=== PATIENT | female | born 1950 | race Caucasian/White ===

== ENCOUNTER 2018-11-10 13:43 | Inpatient (IN) | payer OTHER ==
[2018-11-10] MEDS ORDERED: NA CHLORIDE 0.9% 500 ML ONE (14:20)
[2018-11-10] MEDS ORDERED: LEVALBUTEROL 1.25 MG/3 ML NEB ONE ×2 (14:20→19:50)
[2018-11-10] MEDS ORDERED: IBUPROFEN 400 MG TAB ONE (14:20)
[2018-11-10 14:54] LABS: Basophils % 0.9 % (0-1.3); Eosinophils % 0.2 % (0-4.4); Hematocrit 43.3 % (36.0-45.0); Lymphocytes % 11.1 % (15.3-44.8); MPV 8.5 fL (7.6-11.3); Monocytes % 10.7 % (3.3-12.3); RBC Red Blood Cell Count 4.77 M/uL (3.86-4.86)
[2018-11-10 15:05] LABS: Potassium 3.6 mmol/L (3.5-5.1)
[2018-11-10] MEDS ORDERED: METHYLPREDNISOLONE 125 MG INJ ONE (15:08)
--- NOTE | 2018-11-10 15:46 | RAD REPORT ---
EXAM DESCRIPTION: RAD - Chest Single View - 11/10/2018 3:11 pm CLINICAL HISTORY: Dyspnea, cough and congestion COMPARISON: April 2015 TECHNIQUE: AP portable chest image was obtained 1503 hours . FINDINGS: Prominent interstitial thickening seen in each lower lung field. Fullness of the right hil um is noted compared to prior imaging. Heart size is upper normal, slightly increased over comparison . Upper lobe vasculature within normal limits. No pneumothorax or large pleural effusion. No acute ramiro ny abnormality seen. No acute aortic findings suspected. IMPRESSION: Bibasilar interstitial thickening is present substantially different from 2015. This cou ld be progressive fibrosis over 4 years or represent an acute interstitial edema or infiltrate proces s. Fullness of the right hilum and right side mediastinum has developed since prior imaging. Follow-up C T chest imaging would be suggested to exclude possibility of a mediastinal mass or lymphadenopathy.
[2018-11-10] MEDS ORDERED: AZITHROMYCIN 500 MG/250 ML BAG ONE (16:20)
[2018-11-10] MEDS ORDERED: CEFTRIAXONE/SWI 1gm 1 GM/10 ML SYR ONE (16:20)
--- NOTE | 2018-11-10 16:56 | EKG ---
Test Date: 2018-11-10 Test Time: 14:26:43 Binding Cutter Synthetic Cloth: LELAND MEASUREMENT RESULTS: Intervals: Rate: 116 CO: 154 QRSD: 120 QT: 338 QTc: 469 [place]: P: 84 CO: 154 QRS: 102 T: -8 INTERPRETIVE STATEMENTS: Sinus tachycardia with frequent premature ventricular and atrial complexes Rightward axis Right bundle branch block ST & T wave abnormality, consider inferior ischemia Abnormal ECG Compared to ECG 05/04/2015 13:44:14 Atrial and Ventricular premature complex(es) now present Sinus rhythm no longer present Electronically Signed On 11-10-18 16:56:10 NEONATAL ICU COORDINATOR by Niranjan Fajardo
--- NOTE | 2018-11-10 17:10 | ER ---
Nurse's Notes [facility] Name: Cindi Mccallum Age: 68 yrs Sex: Female : 1950 Arrival Date: 11/10/2018 Time: 13:45 Bed 5 Private MD: Kajal Mahan Diagnosis: Pneumonia;Hypoxemia;Dyspnea, unspecified Presentation: 11/10 13:50 Presenting complaint: Productive cough with yellow sputum, pain with cough, headache, hb SOB, dark urine, and fever x 6 days. TMAX 102. Transition of care: patient was not received from another setting of care. Onset of symptoms was November 06, 2018. Risk Assessment: Do you want to hurt yourself or someone else? Patient reports no desire to harm self or others. Care prior to arrival: None. 13:50 Method Of Arrival: Ambulatory hb 13:50 Acuity: PRATIK 2 hb 14:00 Initial Sepsis Screen: Does the patient meet any 2 criteria? RR > 20 per min. HR > 90 aa5 bpm. Yes Does the patient have a suspected source of infection? Yes: Productive cough/pneumonia. Historical: - Allergies: 13:52 clopidogrel bisulfate; hb - Home Meds: 14:00 Metoprolol Tartrate Oral [Active]; Aspirin Oral [Active]; aa5 - PMHx: 14:00 Hypertension; aa5 - PSHx: 14:00 Heart stents; Appendectomy; Hysterectomy; aa5 - Immunization history:: Adult Immunizations up to date. - Social history:: Smoking status: Patient uses tobacco products, smokes one pack cigarettes per day. - Ebola Screening: : No symptoms or risks identified at this time. - Family history:: not pertinent. - Hospitalizations: : No recent hospitalization is reported. Screenin:00 Abuse screen: Denies threats or abuse. Nutritional screening: No deficits noted. aa5 Tuberculosis screening: No symptoms or risk factors identified. Fall Risk None identified. Assessment: 14:00 General: Appears uncomfortable, Behavior is cooperative. Pain: Complains of pain in aa5 throat and head Pain currently is 7 out of 10 on a pain scale. Quality of pain is described as aching, and sore Pain began 6 days ago Is continuous. Neuro: Level of Consciousness is awake, alert, obeys commands, Oriented to person, place, time, situation. Cardiovascular: Heart tones S1 S2 present Rhythm is sinus tachycardia with PVCs. Respiratory: Reports shortness of breath cough that is productive, Airway is patent Respiratory effort is labored, Respiratory pattern is tachypnea Breath sounds with wheezes bilaterally. GI: No signs and/or symptoms were reported involving the gastrointestinal system. : Reports dark cloudy urine. EENT: Throat is reddened. Derm: Skin is pink, warm \T\ dry. Musculoskeletal: Range of motion: intact in all extremities. 15:00 Neuro: Level of Consciousness is awake, alert, obeys commands, Oriented to person, aa5 place, time, situation. Respiratory: Airway is patent Respiratory effort is even, unlabored, Respiratory pattern is tachypnea. Derm: Skin is pink, warm \T\ dry. 15:00 Reassessment: Patient and/or family updated on plan of care and expected duration. Pain aa5 level reassessed. Pt sitting up in bed, pt's at bedside. Bed in low position, side rails x 2, call marie within reach. . 16:00 Reassessment: Patient and/or family updated on plan of care and expected duration. Pain aa5 level reassessed. Patient states feeling better. Pt sitting up in bed watching TV. Bed remains in low positions, side rails x 2, call marie within reach. . Neuro: Level of Consciousness is awake, alert, obeys commands, Oriented to person, place, time, situation. Respiratory: Airway is patent Respiratory effort is even, unlabored, Respiratory pattern is tachypnea. Derm: Skin is pink, warm \T\ dry. 17:00 Reassessment: Patient and/or family updated on plan of care and expected duration. Pain aa5 level reassessed. Patient is alert, oriented x 3, equal unlabored respirations, skin warm/dry/pink. 18:00 Reassessment: Patient and/or family updated on plan of care and expected duration. Pain aa5 level reassessed. Patient is alert, oriented x 3, equal unlabored respirations, skin warm/dry/pink. Pt given food tray. 18:50 Reassessment: Pt assisted to bedside commode. aa5 19:00 Reassessment: Urine culture sent to lab . aa5 20:05 Reassessment: Report called to Leti on fourth floor. ea Vital Signs: 13:51 BP 168 / 100; Pulse 127; Resp 28; Temp 100.1(O); Pulse Ox 90% on R/A; Pain 7/10; hb 14:00 Pulse 130; Resp 32 S; Pulse Ox 87% on R/A; aa5 14:16 Pulse 125; Resp 30 S; Pulse Ox 97% on Nebulizer Mask; aa5 15:00 BP 150 / 73; Pulse 115; Resp 30 S; Temp 98.5(O); Pulse Ox 95% on 2 lpm NC; aa5 15:45 BP 158 / 72; Pulse 107; Resp 22 S; Pulse Ox 93% on 2 lpm NC; aa5 16:20 BP 165 / 75; Pulse 106; Resp 24 S; Temp 98.6(O); Pulse Ox 92% on 2 lpm NC; aa5 17:15 BP 148 / 76; Pulse 97; Resp 22 S; Pulse Ox 91% on 2 lpm NC; aa5 18:15 BP 152 / 94; Pulse 93; Resp 20 S; Pulse Ox 91% on 2 lpm NC; aa5 19:49 BP 159 / 75; Pulse 103; Resp 22; Pulse Ox 94% on Nebulizer Mask; tl2 ED Course: 13:45 Patient arrived in ED. sb2 13:46 Kajal Mahan MD is Private Physician. sb2 13:51 Triage completed. hb 13:51 Arm band placed on right wrist. hb 14:00 Christ Jacques MD is Attending Physician. rn 14:00 Patient has correct armband on for positive identification. Placed in gown. Bed in low aa5 position. Call light in reach. Side rails up X2. playground monitor on. Pulse ox on. NIBP on. 14:15 Initial lab(s) drawn, by me, sent to lab. First set of blood cultures drawn by me. aa5 14:25 Inserted saline lock: 20 gauge in right forearm, using aseptic technique. Blood aa5 collected. 14:40 Flu and/or RSV swab sent to lab. Strep swab sent to lab. Unsuccessful attempt to draw aa5 second set of blood cultures. information technology account manager will come draw. 14:43 EKG done, by delivery tech. reviewed by Christ Jacques MD. sm3 14:45 Marian Friedman, RN is Primary Nurse. aa5 15:13 XRAY CXR (1 view) In Process Unspecified. EDMS 17:09 Allegra Tyler MD is Hospitalizing Provider. rn 19:00 Report given to Tameka RN. aa5 20:10 Patient admitted, IV remains in place. ea 20:10 No provider procedures requiring assistance completed. ea Administered Medications: 14:15 Drug: Motrin 800 mg Route: PO; aa5 15:00 Follow up: Response: No adverse reaction; Temperature is decreased aa5 14:16 Drug: Xopenex (3) 1.25 mg Route: Inhalation; aa5 14:35 Follow up: Response: No adverse reaction; Wheezing diminished aa5 14:40 Drug: NS 0.9% 500 ml Route: IV; Rate: bolus; Site: right forearm; aa5 15:30 Follow up: IV Status: Completed infusion aa5 14:49 Drug: SOLU-Medrol 125 mg Route: IVP; Site: right forearm; aa5 14:55 Follow up: Response: No adverse reaction aa5 16:15 Drug: Rocephin - (cefTRIAXone) 1 grams {Note: administered slow IVP per pharmacy at aa this time. .} Route: IVPB; Infused Over: 30 mins; Site: right forearm; 20:10 Follow up: Response: No adverse reaction; IV Status: Completed infusion ea 16:17 Drug: Zithromax 500 mg Route: IVPB; Infused Over: 1 hrs; Site: right forearm; aa5 17:28 Follow up: Response: No adverse reaction; IV Status: Completed infusion iw Outcome: 17:09 Decision to Hospitalize by Provider. rn 19:15 Instructed on the need for admit. ea 20:06 Admitted to Med/surg accompanied by tech, room 404, with chart, Report called to Leti poole on fourth floor. 20:06 Condition: stable 20:19 Patient left the ED. ea Signatures: Dispatcher [employer] EDMS Juanita Sepulveda RN RN iw Nieto, Roman, MD MD rn Calderon, Audri RN RN aa5 Sindhu Rubio RN RN hb Knox, Taylor, RN RN tl2 Bonnie Stringer RN RN ea Billeau, Sheri 2 Shilpa Chen sm3 Corrections: (The following items were deleted from the chart) 15:17 14:10 Pulse 125bpm; Resp 30bpm; Spontaneous; Pulse Ox 97% Nebulizer Mask; aa5 aa5
--- NOTE | 2018-11-10 17:10 | EDPHYS ---
Physician Documentation [facility] Name: Cindi Mccallum Age: 68 yrs Sex: Female : 1950 Arrival Date: 11/10/2018 Time: 13:45 Bed 5 Private MD: Kajal Mahan ED Physician Christ Jacques HPI: 11/10 14:30 This 68 yrs old Female presents to ER via Ambulatory with complaints of rn Breathing Difficulty. 14:30 The patient has shortness of breath at rest, with light activity. rn 14:31 Onset: The symptoms/episode began/occurred 6 day(s) ago. Duration: The symptoms are rn intermittent. The patient's shortness of breath is aggravated by exertion, talking, walking. 14:42 Associated signs and symptoms: Pertinent positives: productive cough, fever, Pertinent rn negatives: hemoptysis, vomiting. Severity of symptoms: At their worst the symptoms were moderate in the emergency department the symptoms are unchanged. The patient has not experienced similar symptoms in the past. REports smoker, + fever/chills/cough/sob for a few days. + sick contact. Also reports dysuria. . Historical: - Allergies: 13:52 clopidogrel bisulfate; hb - Home Meds: 14:00 Metoprolol Tartrate Oral [Active]; Aspirin Oral [Active]; aa5 - PMHx: 14:00 Hypertension; aa5 - PSHx: 14:00 Heart stents; Appendectomy; Hysterectomy; aa5 - Immunization history:: Adult Immunizations up to date. - Social history:: Smoking status: Patient uses tobacco products, smokes one pack cigarettes per day. - Ebola Screening: : No symptoms or risks identified at this time. - Family history:: not pertinent. - Hospitalizations: : No recent hospitalization is reported. ROS: 14:42 Constitutional: + fever and chills Eyes: Negative for injury, pain, redness, and afternoon nanny, ENT: Negative for injury, pain, and discharge, Neck: Negative for injury, pain, and swelling, Cardiovascular: Negative for chest pain, palpitations, and edema, Respiratory: + sob and cough Abdomen/GI: Negative for abdominal pain, nausea, vomiting, diarrhea, and constipation, : + dysuria MS/Extremity: Negative for injury and deformity, Skin: Negative for injury, rash, and discoloration, Neuro: Negative for headache, numbness, tingling, and seizure. Exam: 14:42 Constitutional: This is a well developed, well nourished patient who is awake, alert, rn sitting on edge of bed tachypneic Head/Face: Normocephalic, atraumatic. Eyes: Pupils equal round and reactive to light, extra-ocular motions intact. Lids and lashes normal. Conjunctiva and sclera are non-icteric and not injected. Cornea within normal limits. Periorbital areas with no swelling, redness, or edema. ENT: no stridor, dry MM Cardiovascular: tachycardic, regular, no murmur Respiratory: + moderate tachypnea with wheezing LLL and diminished RLL Abdomen/GI: soft, non-tender MS/ Extremity: Pulses equal, no cyanosis. Neurovascular intact. Full, normal range of motion. Equal circumference. Neuro: Awake and alert, GCS 15, oriented to person, place, time, and situation. Cranial nerves II-XII grossly intact. Motor strength 5/5 in all extremities. Sensory grossly intact. Cerebellar exam normal. Normal gait. Vital Signs: 13:51 BP 168 / 100; Pulse 127; Resp 28; Temp 100.1(O); Pulse Ox 90% on R/A; Pain 7/10; hb 14:00 Pulse 130; Resp 32 S; Pulse Ox 87% on R/A; aa5 14:16 Pulse 125; Resp 30 S; Pulse Ox 97% on Nebulizer Mask; aa5 15:00 BP 150 / 73; Pulse 115; Resp 30 S; Temp 98.5(O); Pulse Ox 95% on 2 lpm NC; aa5 15:45 BP 158 / 72; Pulse 107; Resp 22 S; Pulse Ox 93% on 2 lpm NC; aa5 16:20 BP 165 / 75; Pulse 106; Resp 24 S; Temp 98.6(O); Pulse Ox 92% on 2 lpm NC; aa5 17:15 BP 148 / 76; Pulse 97; Resp 22 S; Pulse Ox 91% on 2 lpm NC; aa5 18:15 BP 152 / 94; Pulse 93; Resp 20 S; Pulse Ox 91% on 2 lpm NC; aa5 19:49 BP 159 / 75; Pulse 103; Resp 22; Pulse Ox 94% on Nebulizer Mask; tl2 MDM: 14:00 Patient medically screened. rn 16:57 Differential diagnosis: Anxiety Reaction Bronchitis Myocardial Infarction pneumonia, rn Pneumothorax pulmonary edema, reactive airway disease, Sepsis. Data reviewed: vital signs, nurses notes, lab test result(s), EKG, radiologic studies. Counseling: I had a detailed discussion with the patient and/or guardian regarding: the historical points, exam findings, and any diagnostic results supporting the discharge/admit diagnosis, lab results, radiology results, the need for further work-up and treatment in the hospital. 11/10 14:05 Order name: Blood Culture Adult (2) 11/10 14:05 Order name: BMP; Complete Time: 15:29 rn 11/10 14:05 Order name: CBC with Diff; Complete Time: 15:29 11/10 14:05 Order name: NT PRO-BNP; Complete Time: 15:29 11/10 14:05 Order name: Flu; Complete Time: 15:29 11/10 14:05 Order name: Strep; Complete Time: 15:29 11/10 14:05 Order name: XRAY CXR (1 view); Complete Time: 15:51 11/10 14:05 Order name: Procalcitonin; Complete Time: 15:51 11/10 15:14 Order name: Throat Culture [facility] 11/10 18:54 Order name: Urine Culture 11/10 19:01 Order name: Urine Dipstick--Ancillary (enter results) 11/10 20:17 Order name: Urine Dipstick-Ancillary [facility] 11/10 14:05 Order name: IV Start; Complete Time: 14:49 11/10 14:05 Order name: EKG; Complete Time: 14:06 11/10 14:05 Order name: Cardiac monitoring; Complete Time: 14:50 11/10 14:05 Order name: EKG - Nurse/Tech; Complete Time: 14:50 11/10 14:05 Order name: Labs collected and sent; Complete Time: 14:50 11/10 14:05 Order name: O2 Per Protocol; Complete Time: 14:50 rn 11/10 14:05 Order name: O2 Sat Monitoring; Complete Time: 14:50 11/10 17:28 Order name: Diet Heart Healthy; Complete Time: 17:28 iw Administered Medications: 14:15 Drug: Motrin 800 mg Route: PO; aa5 15:00 Follow up: Response: No adverse reaction; Temperature is decreased aa5 14:16 Drug: Xopenex (3) 1.25 mg Route: Inhalation; aa5 14:35 Follow up: Response: No adverse reaction; Wheezing diminished aa5 14:40 Drug: NS 0.9% 500 ml Route: IV; Rate: bolus; Site: right forearm; aa5 15:30 Follow up: IV Status: Completed infusion 5 14:49 Drug: SOLU-Medrol 125 mg Route: IVP; Site: right forearm; aa5 14:55 Follow up: Response: No adverse reaction aa5 16:15 Drug: Rocephin - (cefTRIAXone) 1 grams {Note: administered slow [facility] .} Route: IVPB; Infused Over: 30 mins; Site: right forearm; 20:10 Follow up: Response: No adverse reaction; IV Status: Completed infusion 16:17 Drug: Zithromax 500 mg Route: IVPB; Infused Over: 1 hrs; Site: right forearm; aa 17:28 Follow up: Response: No adverse reaction; IV Status: Completed infusion iw Disposition: 11/10/18 17:09 Hospitalization ordered by Allegra Tylre for Inpatient Admission. Preliminary diagnosis are Pneumonia, Hypoxemia, Dyspnea, unspecified. - Bed requested for Telemetry/MedSurg (Inpatient). - Status is Inpatient Admission. ea - Condition is Stable. - Problem is new. - Symptoms have improved. UTI on Admission? Yes Signatures: Dispatcher [employer] EDMS Christ Jacques MD MD rn Calderon, Audri RN RN aa5 Sindhu Rubio RN RN hb Antunez, Elena, RN RN Brittney Reno Irene RN Corrections: (The following items were deleted from the chart) 17:50 17:09 Hospitalization Ordered by Allegra Tyler MD for Inpatient Admission. Preliminary eb diagnosis is Pneumonia; Hypoxemia; Dyspnea, unspecified. Bed requested for Telemetry/MedSurg (Inpatient). Status is Inpatient Admission. Condition is Stable. Problem is new. Symptoms have improved. UTI on Admission? No. rn 18:54 17:50 11/10/2018 17:09 Hospitalization Ordered by Allegra Tyler MD for Inpatient aprn. Preliminary diagnosis is Pneumonia; Hypoxemia; Dyspnea, unspecified. Bed requested for Telemetry/MedSurg (Inpatient). Status is Inpatient Admission. Condition is Stable. Problem is new. Symptoms have improved. UTI on Admission? No. eb 20:19 18:54 11/10/2018 17:09 Hospitalization Ordered by Allegra Tyler MD for Inpatient ea Admission. Preliminary diagnosis is Pneumonia; Hypoxemia; Dyspnea, unspecified. Bed requested for Telemetry/MedSurg (Inpatient). Status is Inpatient Admission. Condition is Stable. Problem is new. Symptoms have improved. UTI on Admission? Yes. rn
--- NOTE | 2018-11-10 18:53 | P.HP ---
Certification for Inpatient Patient admitted to: Inpatient Practitioner: I am a practitioner with admitting privileges, knowledge of patient current condition, hospital course, and medical plan of care. Services: Services provided to patient in accordance with Admission requirements found in Title 42 Section 412.3 of the Code of Federal Regulations Patient History Date of Service: 11/10/18 Reason for admission: Dyspnea History of Present Illness: This is a 68-year-old female, active smoker with prior coronary stent placement admitted for shortness of breath, fevers and productive cough. Per patient she has been having this productive cough and fevers/chills for the past few days that has been progressively worsening. This is what brought her to the ER. In the ER, her chest x-ray showed bilateral opacities, she was tachycardic, febrile and tachypneic. Her lab work was pertinent for white count of 9.1, pro calcitonin was negative. In the ER, she received Rocephin and Zithromax, steroids and Xopenex breathing treatments. She was admitted for further evaluation/treatment. At the time of my exam, patient was alert oriented x3, in mild to moderate respiratory distress, tachycardic but afebrile. Allergies clopidogrel bisulfate [From Plavix] Allergy (Verified 05/04/15 13:42) increased b/p and purple toes Home Medications: Aspirin 81 mg PO DAILY 11/11/18 Metoprolol Tartrate 50 mg PO BID 11/11/18 Review of Systems 10-point ROS is otherwise unremarkable Physical Examination - Physical Exam General: Alert, Mild distress, Moderate distress HEENT: Atraumatic, PERRLA, Mucous membr. moist/pink, EOMI, Sclerae nonicteric Neck: Supple, 2+ carotid pulse no bruit, No LAD, Without JVD or thyroid abnormality Respiratory: Diminished, Expiratory wheezes Cardiovascular: Regular rate/rhythm, Normal S1 S2 Gastrointestinal: Normal bowel sounds, No tenderness Musculoskeletal: No tenderness Integumentary: No rashes Neurological: Normal gait, Normal speech, Normal strength at 5/5 x4 extr, Normal tone, Normal affect Lymphatics: No axilla or inguinal lymphadenopathy - Studies Laboratory Data (last 24 hrs) 11/10/18 14:25: WBC 9.1, Hgb 14.4, Hct 43.3, Plt Count 241 11/10/18 14:25: Sodium 132 L, Potassium 3.6, BUN 14, Creatinine 1.08, Glucose 156 H Microbiology Data (last 24 hrs): 11/10/18 14:35 Nasopharnyx Influenza Type A Antigen Screen - Final 11/10/18 14:35 Nasopharnyx Influenza Type B Antigen Screen - Final 11/10/18 14:35 Throat Group A Streptococcus Rapid Screen - Final Assessment and Plan - Problems (Diagnosis) (1) COPD exacerbation Onset Date: 11/11/18 Current Visit: Yes Status: Acute (2) Current tobacco use Onset Date: 11/11/18 Current Visit: Yes Status: Acute (3) Elevated brain natriuretic peptide (BNP) level Onset Date: 11/11/18 Current Visit: Yes Status: Acute (4) Tachycardia Current Visit: Yes Status: Acute (5) History of coronary artery stent placement Current Visit: Yes Status: Chronic - Plan COPD exacerbation Current tobacco user BNP elevated History of coronary stent placement Tachycardia ECHO ordered, pending Hold IVF Start Antibiotics Start IV steroids Breathing treatments: xopenex and ipratropium DVT prophylaxis: Lovenox GI prophylaxis: None Diet: Heart healthy Disposition: Pending symptomatic improvement - Advance Directives Does patient have a Living Will: No Does patient have a Durable POA for Healthcare: No
[2018-11-10 20:16] LABS: Urine Blood 1+ (NEG); Urine Glucose NEGATIVE (NEG); Urine Protein 2+ (NEG); Urine Specific Gravity 1.015 (1.005-1.030)
[2018-11-10 20:57] VITALS: BMI 24.7
[2018-11-10] MEDS: IPRATROPIUM BROM 0.5MG/2.5ML NEB SCH (20:57)
[2018-11-10] MEDS: LEVALBUTEROL 1.25 MG/3 ML NEB NEB SCH (20:57)
[2018-11-10] MEDS ORDERED: CEFTRIAXONE 1 GM/NS 50 ML 1 GM/50 ML BAG IV SCH (21:00)
[2018-11-10] MEDS ORDERED: FUROSEMIDE 40 MG/4 ML VIAL IV ONE (21:03)
[2018-11-10] MEDS ORDERED: METOPROLOL TARTRATE 5 MG/5 ML INJ IV STA (22:20)
[2018-11-10] MEDS ORDERED: METOPROLOL TAR 50 MG TAB PO ONE (23:30)
[2018-11-11] MEDS: METHYLPREDNISOLONE 40 MG INJ IV SCH ×2 (00:05→08:18)
[2018-11-11 00:13] LABS: Arterial Blood Carboxyhemoglob 1.4 % (0-1.5); Blood Gas Oxyhemoglobin 85.5 % (94-97); Blood O2 Saturation 87.4 % (92-98.5)
[2018-11-11] MEDS: IPRATROPIUM BROM 0.5MG/2.5ML NEB SCH ×4 (02:00→20:07)
[2018-11-11] MEDS: LEVALBUTEROL 1.25 MG/3 ML NEB NEB SCH ×4 (02:00→20:07)
[2018-11-11 04:40] LABS: Absolute Lymphocytes (CBC) 0.5 K/uL (0.7-4.9); Absolute Monocytes 0.4 K/uL (0.1-1.3); Absolute Neutrophil 8.5 K/uL (1.8-8.0); Basophils % 0.1 % (0-1.3); Hematocrit 42.7 % (36.0-45.0); Lymphocytes % 5.2 % (15.3-44.8); MPV 8.8 fL (7.6-11.3); Monocytes % 4.3 % (3.3-12.3); RBC Red Blood Cell Count 4.66 M/uL (3.86-4.86)
[2018-11-11 04:57] LABS: Albumin 2.7 g/dL (3.4-5.0); Bilirubin Total 0.3 mg/dL (0.2-1.0); Potassium 4.2 mmol/L (3.5-5.1); Protein, Total 7.4 g/dL (6.4-8.2)
[2018-11-11 05:23] LABS: Blood Morphology Comment NOT SEEN (NOT SEEN); Platelet Estimate ADEQ
[2018-11-11] MEDS: ENOXAPARIN 40 MG/0.4 ML SQ SCH (08:18)
--- NOTE | 2018-11-11 08:27 | P.CNS ---
Date of Consult: 11/11/18 Chief Complaint: Cough and congestion History of Present Illness: Patient is 68 years of age heavy smoker admitted with the 2-3 day history of increasing cough congestion productive sputum change in color from yellow to green worsening shortness of breath chest pressure no prior history of documented COPD although she was prescribed an inhaler patient has some dyspnea on moderate to severe exertion history of coronary artery disease Allergies clopidogrel bisulfate [From Plavix] Allergy (Verified 05/04/15 13:42) increased b/p and purple toes Home Medications: Aspirin 81 mg PO DAILY 11/11/18 Metoprolol Tartrate 50 mg PO BID 11/11/18 - Past Medical/Surgical History Diabetic: No -: HTN -: Coronary artery disease -: heart stents -: appendectomy -: hysterectomy - Social History Smoking Status: Current every day smoker Alcohol use: No CD- Drugs: No Caffeine use: Yes Place of Residence: Home Review of Systems 10-point ROS is otherwise unremarkable General: Weakness Respiratory: Cough, Shortness of Breath Physical Examination Temp Pulse Resp BP Pulse Ox 97.2 F 84 16 161/74 H 89 L 11/11/18 08:00 11/11/18 08:00 11/11/18 08:00 11/11/18 08:00 11/11/18 08:00 General: Alert, In no apparent distress, Oriented x3 HEENT: Atraumatic Respiratory: Expiratory wheezes Cardiovascular: No edema, Regular rate/rhythm, Normal S1 S2 Gastrointestinal: Normal bowel sounds, Soft and benign Laboratory Data (last 24 hrs) 11/10/18 14:25: WBC 9.1, Hgb 14.4, Hct 43.3, Plt Count 241 11/10/18 14:25: Sodium 132 L, Potassium 3.6, BUN 14, Creatinine 1.08, Glucose 156 H - Problems (1) COPD exacerbation Current Visit: Yes Status: Acute Plan: Patient is 68 years of age heavy smoker admitted with a COPD exacerbation patient was hypoxic hypercapnic doing better change room attendant to p.o. prednisone discharge home on a long-acting bronchodilator Advair or Symbicort in addition to low-dose prednisone 10 mg twice a day for 5 days and antibiotic either Levaquin or Augmentin check if she qualifies for home O2 console not to smoke follow up with me in 2 weeks
--- NOTE | 2018-11-11 08:34 | RAD REPORT ---
EXAM DESCRIPTION: Helene Pa And Lat (2 Views)11/11/2018 7:01 am CLINICAL HISTORY: Cough COMPARISON: November 10 FINDINGS: No change has occurred in the bilateral interstitial lung opacities which may represent an atypical pneumonia or pneumonitis. Lungs are hyperaerated consistent COPD. The heart is normal size
[2018-11-11] MEDS: predniSONE 20 MG TAB PO SCH ×2 (08:54→20:50)
[2018-11-11] MEDS ORDERED: AZITHROMYCIN IV 500 MG in NA CHLORIDE 0.9% 250 ML IVPB SCH (09:00)
[2018-11-11] MEDS ORDERED: CEFTRIAXONE/SWI 1gm 1 GM/10 ML SYR IV SCH (09:00)
[2018-11-11] MEDS: CEFUROXIME 250 MG TAB PO SCH ×2 (09:12→20:50)
[2018-11-11] MEDS: METOPROLOL TAR 25 MG TAB PO SCH ×3 (14:40→20:50)
[2018-11-11] MEDS ORDERED: METOPROLOL TARTRATE 5 MG/5 ML INJ IV STA (15:59)
--- NOTE | 2018-11-11 16:53 | ECHO ---
HEIGHT: 5 ft 6 in WEIGHT: 153 lb 0 oz DATE OF STUDY: 11/11/[address]: Allegra Tyler MD 2-DIMENSIONAL: YES M.MODE: YES DOPPLER: YES COLOR FLOW: YES TDS: NO PORTABLE: NO DEFINITY: NO BUBBLE STUDY: NO DIAGNOSIS: VOLUME OVERLOAD CARDIAC HISTORY: CATHERIZATION: YES SURGERY: NO PROSTHETIC VALVE: NO PACEMAKER: NO MEASUREMENTS (cm) DIASTOLIC (NORMALS) SYSTOLIC (NORMALS) IVSd 1.3 (0.6-1.2) LA Diam 3.9 (1.9-4.0) LVEF 67% LVIDd 3.6 (3.5-5.7) LVIDs 2.3 (2.0-3.5) %FS 36% LVPWd 1.4 (0.6-1.2) Ao Diam 2.4 (2.0-3.7) 2 DIMENSIONAL ASSESSMENT: RIGHT ATRIUM: NORMAL LEFT ATRIUM: NORMAL RIGHT VENTRICLE: NORMAL LEFT VENTRICLE: LEFT VENTRICULAR HYPERTROPHY TRICUSPID VALVE: NORMAL MITRAL VALVE: MITRAL ANNULAR CALCIFICATION PULMONIC VALVE: NORMAL AORTIC VALVE: NORMAL PERICARDIAL EFFUSION: NONE AORTIC ROOT: NORMAL LEFT VENTRICULAR WALL MOTION: NORMAL. DOPPLER/COLOR FLOW: MILD MITRAL REGURGITATION AND TRICUSPID REGURGITATION. ESTIMATED RIGHT VENTRICULAR SYSTOLIC PRESSURE 45 MMHG (MILD PULMONARY HYPERTENSION). COMMENTS: NORMAL LEFT VENTRICULAR EJECTION FRACTION. LEFT VENTRICULAR HYPERTROPHY. MITRAL ANNULAR CALCIFICATION. MILD MITRAL AND TRICUSPID REGURGITATION. MILD PULMONARY HYPERTENSION. ATRIAL FIBRILLATION WITH RAPID VENTRICULAR RESPONSE. HEART RATE 130-140 BEATS PER MINUTE. TECHNOLOGIST: LISA SEVERINO
--- NOTE | 2018-11-11 18:25 | P.PN ---
Subjective Date of Service: 11/11/18 Chief Complaint: Dyspnea Subjective: Improving Patient seen and examined at bedside. No family at bedside. Chart reviewed and case discussed with nursing staff. Overnight, patient with episodes of V-tach, though asymptomatic. Was given 1 time IV Lopressor 5 mg and 1 time p.o. Lopressor. In the morning, normal sinus rhythm, the was progressively starting to get tachycardic. Reports improved symptoms. Review of Systems 10-point ROS is otherwise unremarkable Physical Examination - Vital Signs Temperature: 98.2 F Blood Pressure: 172/87 Pulse: 132 Respirations: 16 Pulse Ox (%): 92 - Physical Exam General: Alert, In no apparent distress, Oriented x3 HEENT: Atraumatic, PERRLA, EOMI Neck: Supple, JVD not distended Respiratory: Diminished, Expiratory wheezes Cardiovascular: Regular rate/rhythm, Normal S1 S2 Gastrointestinal: Normal bowel sounds, No tenderness Musculoskeletal: No tenderness Integumentary: No rashes Neurological: Normal speech, Normal tone, Normal affect Lymphatics: No axilla or inguinal lymphadenopathy - Studies Microbiology Data (last 24 hrs): 11/10/18 14:35 Nasopharnyx Influenza Type A Antigen Screen - Final 11/10/18 14:35 Nasopharnyx Influenza Type B Antigen Screen - Final 11/10/18 14:35 Throat Group A Streptococcus Rapid Screen - Final Assessment And Plan - Current Problems (Diagnosis) (1) COPD exacerbation Onset Date: 11/11/18 Current Visit: Yes Status: Acute (2) Current tobacco use Onset Date: 11/11/18 Current Visit: Yes Status: Acute (3) Elevated brain natriuretic peptide (BNP) level Onset Date: 11/11/18 Current Visit: Yes Status: Acute (4) Tachycardia Current Visit: Yes Status: Acute (5) History of coronary artery stent placement Current Visit: Yes Status: Chronic (6) Atrial fibrillation Current Visit: Yes Status: Acute Qualifiers: Atrial fibrillation type: paroxysmal Qualified Code(s): I48.0 - Paroxysmal atrial fibrillation - Plan COPD exacerbation No prior history of COPD on record. Patient was prescribed an inhaler from summer. Does not use it on a regular basis. Continue breathing treatments with Xopenex and ipratropium Switch IV antibiotics to oral antibiotics Change IV steroids to oral steroids She will need outpatient pulmonology followup for PFT testing as well as COPD management. Will provide long-acting bronchodilator prescription upon discharge. Current tobacco user Counseled on smoking cessation. Patient really not interested as looking cessation at this time. BNP elevated Echo done, normal. No evidence of swelling/volume overload noted at this time. Will continue to monitor History of coronary stent placement Tachycardia Atrial fibrillation, new diagnosis Patient with episodes of V-tach overnight, but asymptomatic. She was given 1 time IV Lopressor 5 mg and 1 time oral Lopressor. In the morning, she was in normal sinus rhythm though progressively got tachycardic and converted to atrial fibrillation. She was started on 25 mg metoprolol b.i.d.. Though it seems the patient is on 50 mg metoprolol at home. Patient denies any prior history of any atrial fibrillation or any other arrhythmias at this time. EKG obtained, with a triple relation. Low TSH labs ordered, cardiology consulted DVT prophylaxis: Lovenox GI prophylaxis: None Diet: Heart healthy Disposition: Pending symptomatic improvement
--- NOTE | 2018-11-11 20:32 | EKG ---
Test Date: 2018-11-11 Test Time: 17:36:01 Flow Worker: ALFREDO MEASUREMENT RESULTS: Intervals: Rate: 114 TX: QRSD: 136 QT: 342 QTc: 471 Dana: P: TX: QRS: 82 T: -17 INTERPRETIVE STATEMENTS: Atrial fibrillation with rapid ventricular response Right bundle branch block Septal infarct, age undetermined Abnormal ECG Compared to ECG 11/10/2018 14:26:43 Myocardial infarct finding now present Sinus tachycardia no longer present Ventricular premature complex(es) no longer present Right-axis deviation no longer present ST (T wave) deviation no longer present Possible ischemia no longer present Electronically Signed On 11-11-18 20:31:23 PRINCIPAL SYSTEMS ENGINEER by Niranjan Fajardo
[2018-11-12] MEDS: IPRATROPIUM BROM 0.5MG/2.5ML NEB SCH ×4 (01:05→20:00)
[2018-11-12] MEDS: LEVALBUTEROL 1.25 MG/3 ML NEB NEB SCH ×4 (01:05→20:00)
[2018-11-12 04:28] LABS: Absolute Lymphocytes (CBC) 0.8 K/uL (0.7-4.9); Absolute Monocytes 0.7 K/uL (0.1-1.3); Absolute Neutrophil 13.2 K/uL (1.8-8.0); Basophils % 0.2 % (0-1.3); Lymphocytes % 5.3 % (15.3-44.8); MPV 8.7 fL (7.6-11.3); Monocytes % 4.7 % (3.3-12.3); RBC Red Blood Cell Count 4.28 M/uL (3.86-4.86)
[2018-11-12 04:50] LABS: Albumin 2.5 g/dL (3.4-5.0); Bilirubin Total 0.2 mg/dL (0.2-1.0); Potassium 3.8 mmol/L (3.5-5.1); Protein, Total 6.4 g/dL (6.4-8.2)
[2018-11-12] MEDS: METOPROLOL TAR 25 MG TAB PO SCH (05:55)
[2018-11-12] MEDS: ENOXAPARIN 40 MG/0.4 ML SQ SCH (09:00)
--- NOTE | 2018-11-12 10:50 | CON ---
A 68-year-old woman. Reason For Consult: Atrial fibrillation. History Of Present Illness: Mrs. Estrella has very severe COPD, and while here getting breathing ta atment, she went into atrial fibrillation. She is still in atrial fibrillation. She has been in atr ial fibrillation before. She is a poorly compliant patient, and often stops taking her medicines, an d admits that she has not been taking any of her medicines recently. Medications: Her home medicines listed are aspirin and metoprolol, but she has not been on those. Allergies: SHE IS ALLERGIC TO CLOPIDOGREL. Physical Examination: General: She is 5 feet 6 inches, 153 pounds. HEENT: Normal. Lungs: Reveal bronchial type breath sounds and mild wheezing. Cardiac Exam: Normal. Abdomen: Soft. Extremities: Normal. Laboratory Data: Telemetry shows atrial fibrillation. Her admission EKG showed sinus rhythm. Impression: I think we should give her full anticoagulation, stop the metoprolol, give her Betapace instead, and if she is still in atrial fibrillation tomorrow, consider a cardioversion. HEMANTH Voice ID: [id number] Report ID: [id number]
[2018-11-12] MEDS: CEFUROXIME 250 MG TAB PO SCH ×2 (10:57→23:00)
[2018-11-12] MEDS: predniSONE 20 MG TAB PO SCH ×2 (10:58→23:00)
[2018-11-12] MEDS: ENOXAPARIN 80 MG/0.8 ML SQ SCH ×2 (11:14→23:00)
[2018-11-12] MEDS: SOTALOL HCL 80 MG TAB PO SCH ×2 (11:14→17:17)
[2018-11-12] MEDS: NICOTINE 21 MG/PAT TD SCH (11:14)
[2018-11-12] MEDS: NA CHLORIDE 0.9% 1,000 ML IV SCH (14:11)
--- NOTE | 2018-11-12 17:07 | P.PN ---
Subjective Date of Service: 11/12/18 Chief Complaint: Dyspnea Patient seen and examined at bedside. No family at bedside. Chart reviewed and case discussed with nursing staff. Overnight, patient with episodes of V-tach, though asymptomatic. Was given 1 time IV Lopressor 5 mg and 1 time p.o. Lopressor. In the morning, consistently remains in atrial fibrillation. Per talking to patient more, states that she has had something like this previously. She used to take some medication, but stopped a long time ago. She also admitted that she has not been taking her medications as she should be recently. States she feels worn out this morning. Denies any chest pain, vision changes, headache. Reports improved breathing. Still requiring 2 L oxygen. Review of Systems 10-point ROS is otherwise unremarkable Physical Examination - Vital Signs Temperature: 97.6 F Blood Pressure: 156/81 Pulse: 85 Respirations: 28 Pulse Ox (%): 96 - Physical Exam General: Alert, In no apparent distress, Oriented x3 HEENT: Atraumatic, PERRLA, EOMI Neck: Supple, JVD not distended Respiratory: Clear to auscultation bilaterally, Normal air movement Cardiovascular: Irregular heart rate/rhythm Gastrointestinal: Normal bowel sounds, No tenderness Musculoskeletal: No tenderness Integumentary: No rashes Neurological: Normal speech, Normal tone, Normal affect Lymphatics: No axilla or inguinal lymphadenopathy - Studies Microbiology Data (last 24 hrs): 11/10/18 14:35 Throat Culture & Sensitivity - Final Assessment And Plan - Current Problems (Diagnosis) (1) COPD exacerbation Onset Date: 11/11/18 Current Visit: Yes Status: Acute (2) Current tobacco use Onset Date: 11/11/18 Current Visit: Yes Status: Acute (3) Elevated brain natriuretic peptide (BNP) level Onset Date: 11/11/18 Current Visit: Yes Status: Acute (4) Tachycardia Current Visit: Yes Status: Acute (5) History of coronary artery stent placement Current Visit: Yes Status: Chronic (6) Atrial fibrillation Current Visit: Yes Status: Acute Qualifiers: Atrial fibrillation type: paroxysmal Qualified Code(s): I48.0 - Paroxysmal atrial fibrillation - Plan COPD exacerbation No prior history of COPD on record. Patient was prescribed an inhaler from somewhere, Does not use it on a regular basis. Continue breathing treatments with Xopenex and ipratropium Switch IV antibiotics to oral antibiotics Change IV steroids to oral steroids She will need outpatient pulmonology followup for PFT testing as well as COPD management. Will provide long-acting bronchodilator prescription upon discharge. Current tobacco user Counseled on smoking cessation. Patient really not interested as looking cessation at this time. BNP elevated Echo done, normal. No evidence of swelling/volume overload noted at this time. Will continue to monitor History of coronary stent placement Tachycardia Atrial fibrillation Cardiology consulted. Recommendations appreciated Start full anticoagulation Metoprolol discontinued, started on Betapace. Will continue to monitor on tele. If no improvement in atrial fibrillation, will consider cardioversion. DVT prophylaxis: Lovenox GI prophylaxis: None Diet: Heart healthy Disposition: Pending symptomatic improvement
[2018-11-13] MEDS: IPRATROPIUM BROM 0.5MG/2.5ML NEB SCH ×4 (02:00→20:00)
[2018-11-13] MEDS: LEVALBUTEROL 1.25 MG/3 ML NEB NEB SCH ×4 (02:00→20:00)
[2018-11-13] MEDS: NA CHLORIDE 0.9% 1,000 ML IV SCH (03:20)
[2018-11-13] MEDS ORDERED: FUROSEMIDE 40 MG/4 ML VIAL IV ONE ×2 (04:10→04:43)
[2018-11-13] MEDS: SOTALOL HCL 80 MG TAB PO SCH ×2 (04:10→17:54)
[2018-11-13] MEDS ORDERED: HYDRALAZINE HCL 20 MG/ML VIAL IV ONE (04:43)
[2018-11-13] MEDS ORDERED: MORPHINE 2 MG/ML SYR IV ONE (04:44)
[2018-11-13] MEDS ORDERED: FUROSEMIDE 40 MG/4 ML VIAL ONE (04:58)
[2018-11-13 05:55] LABS: Arterial Blood Carboxyhemoglob 0.9 % (0-1.5); Blood Gas Oxyhemoglobin 85.2 % (94-97); Blood O2 Saturation 86.3 % (92-98.5)
[2018-11-13 05:56] LABS: Blood Gas RHB 0.9 %
[2018-11-13 06:07] LABS: Absolute Lymphocytes (CBC) 0.8 K/uL (0.7-4.9); Absolute Monocytes 0.7 K/uL (0.1-1.3); Absolute Neutrophil 12.5 K/uL (1.8-8.0); Eosinophils % 0.1 % (0-4.4); Hematocrit 44.9 % (36.0-45.0); Lymphocytes % 5.9 % (15.3-44.8); MPV 8.8 fL (7.6-11.3); Monocytes % 5.1 % (3.3-12.3)
[2018-11-13] MEDS ORDERED: METHYLPREDNISOLONE 125 MG INJ IV ONE (06:08)
[2018-11-13 06:18] LABS: RBC Red Blood Cell Count 4.94 M/uL (3.86-4.86)
[2018-11-13 06:26] LABS: Bilirubin Total 0.2 mg/dL (0.2-1.0); Potassium 4.6 mmol/L (3.5-5.1); Protein, Total 7.4 g/dL (6.4-8.2)
--- NOTE | 2018-11-13 08:34 | RAD REPORT ---
EXAM DESCRIPTION: RAD - Chest Single View - 11/13/2018 4:42 am CLINICAL HISTORY: Shortness of breath COMPARISON: November 11 TECHNIQUE: AP portable chest image was obtained 0439 hours . FINDINGS: Patient has extensive baseline interstitial fibrotic change. Interstitial markings are mor e pronounced in each lung base. No focal consolidation. No mass lesion identified to heart size is si milar to may be slightly increased over the comparison. Vasculature is not substantially different. H ilar fullness has not changed. No measurable pleural effusion and no pneumothorax. No acute bony abno rmality seen. No acute aortic findings suspected. IMPRESSION: Interstitial edema or infiltrate superimposed on diffuse fibrosis.
[2018-11-13] MEDS: CEFUROXIME 250 MG TAB PO SCH ×2 (08:48→20:41)
[2018-11-13] MEDS: NICOTINE 21 MG/PAT TD SCH (08:49)
[2018-11-13] MEDS: predniSONE 20 MG TAB PO SCH ×2 (08:49→20:50)
[2018-11-13] MEDS: ENOXAPARIN 80 MG/0.8 ML SQ SCH ×2 (08:49→20:42)
--- NOTE | 2018-11-13 10:37 | P.PN ---
Subjective Date of Service: 11/13/18 Chief Complaint: Dyspnea Reviewed chart. Patient converted into a sinus rhythm on sotalol. However apparently patient has had difficulty breathing throughout the day. Called to see patient regarding difficulty breathing around 410. Patient's respiratory rate was in the 40s. Patient blood pressure was 220/100. Chest x-ray shows pulmonary edema. Patient may have some flash pulmonary edema. We will go ahead and get blood pressure controlled and diuresed patient aggressively. Nagel catheter and adjust BiPAP settings. Will notify cardiology and pulmonary in a.m. Review of Systems 10-point ROS is otherwise unremarkable Physical Examination - Vital Signs Temperature: 96.4 F Blood Pressure: 227/96 Pulse: 66 Respirations: 40 Pulse Ox (%): 92 - Physical Exam General: Alert, Severe distress Respiratory: Crackles/rales, Expiratory wheezes Cardiovascular: Regular rate/rhythm, Normal S1 S2, Systolic murmur Gastrointestinal: Soft and benign, Non-distended, W/out succussion splash Musculoskeletal: No clubbing, No swelling, No contractures - Studies Microbiology Data (last 24 hrs): 11/10/18 14:35 Throat Culture & Sensitivity - Final Assessment & Plan - Problems (Diagnosis) (1) Hypertensive urgency Current Visit: Yes Status: Acute (2) Flash pulmonary edema Current Visit: Yes Status: Acute (3) Respiratory distress Current Visit: Yes Status: Acute (4) Atrial fibrillation Current Visit: Yes Status: Acute Qualifiers: Atrial fibrillation type: paroxysmal Qualified Code(s): I48.0 - Paroxysmal atrial fibrillation (5) COPD exacerbation Onset Date: 11/11/18 Current Visit: Yes Status: Acute (6) Elevated brain natriuretic peptide (BNP) level Onset Date: 11/11/18 Current Visit: Yes Status: Acute (7) History of coronary artery stent placement Current Visit: Yes Status: Chronic - Plan Plan: 1. continue with Lasix 2. Echo review 3. Strict input and output 4. adjust BiPAP settings 5. IV steroid x1 6. GI and DVT prophylaxis - Advance Directives Does patient have a Living Will: No Does patient have a Durable POA for Healthcare: No - Code Status/Comfort Care Code Status Assessed: Yes Code Status: Full Code Critical Care: No Time Spent Managing PTS Care (In Minutes): 45
--- NOTE | 2018-11-13 11:35 | P.PN ---
Subjective Date of Service: 11/13/18 Chief Complaint: Respiratory days Patient developed respiratory distress years last night and had to be placed on BiPAP when I saw this morning she was on BiPAP final signs appeared to be stable oxygenation satisfactory also has developed AFib Review of Systems General: Weakness Respiratory: Shortness of Breath Physical Examination - Vital Signs Temperature: 96.4 F Blood Pressure: 227/96 Pulse: 66 Respirations: 40 Pulse Ox (%): 92 - Physical Exam General: Alert, Mild distress Respiratory: Expiratory wheezes Cardiovascular: No edema, Normal pulses - Studies Microbiology Data (last 24 hrs): 11/10/18 14:35 Throat Culture & Sensitivity - Final Assessment & Plan - Problems (Diagnosis) (1) COPD exacerbation Onset Date: 11/11/18 Current Visit: Yes Status: Acute Plan: Patient is 68 years of age admitted with COPD exacerbation currently on BiPAP recent blood gases show hypoxemia with hypercarbia plan to titrate sat to 90 chest x-rays solution interstitial changes possible volume overload control blood pressure add Lasix patient is anti coagulated the probably has cor pulmonale the were function tests are also abnormal due to liver congestion patient is already on cefuroxime on steroids bronchodilators I have also added some doxycycline for some atypical coverage
[2018-11-13] MEDS: FUROSEMIDE 20 MG/ 2ML VIAL IV SCH ×2 (12:17→17:53)
[2018-11-13] MEDS: DOXYCYCLINE 100 MG CAP PO SCH ×2 (12:19→20:41)
[2018-11-13] MEDS: LOSARTAN/HCTZ 50-12.5 PO SCH (12:26)
--- NOTE | 2018-11-13 14:03 | P.PN ---
Subjective Date of Service: 11/13/18 Chief Complaint: Respiratory days Patient seen and examined at bedside. No family at bedside. Chart reviewed and case discussed with nursing staff. Overnight, patient with increased work of breathing, desats. She received IV lasix, apresoline and IV steroids x 1. She was placed on BiPAP. Her BNP was elevated to 8000, chest x-ray without any volume overload Review of Systems 10-point ROS is otherwise unremarkable Physical Examination - Vital Signs Temperature: 98.1 F Blood Pressure: 167/74 Pulse: 70 Respirations: 32 Pulse Ox (%): 92 - Physical Exam General: Alert, Oriented x3, Mild distress HEENT: Atraumatic, PERRLA, EOMI Neck: Supple, JVD not distended Respiratory: Diminished, Expiratory wheezes, Other (Tachypneic) Cardiovascular: Regular rate/rhythm, Normal S1 S2 Gastrointestinal: Normal bowel sounds, No tenderness Musculoskeletal: No tenderness Integumentary: No rashes Neurological: Normal speech, Normal tone, Normal affect Lymphatics: No axilla or inguinal lymphadenopathy Assessment And Plan - Current Problems (Diagnosis) (1) COPD exacerbation Onset Date: 11/11/18 Current Visit: Yes Status: Acute (2) Current tobacco use Onset Date: 11/11/18 Current Visit: Yes Status: Acute (3) Elevated brain natriuretic peptide (BNP) level Onset Date: 11/11/18 Current Visit: Yes Status: Acute (4) Tachycardia Current Visit: Yes Status: Acute (5) History of coronary artery stent placement Current Visit: Yes Status: Chronic (6) Atrial fibrillation Current Visit: Yes Status: Acute Qualifiers: Atrial fibrillation type: paroxysmal Qualified Code(s): I48.0 - Paroxysmal atrial fibrillation - Plan Acute respiratory distress Continue to use BiPAP as needed Continue antibiotics and steroids. Pulmonology on board COPD exacerbation No prior history of COPD on record. Patient was prescribed an inhaler from somewhere, Does not use it on a regular basis. Continue breathing treatments with Xopenex and ipratropium Switch IV antibiotics to oral antibiotics Change IV steroids to oral steroids She will need outpatient pulmonology followup for PFT testing as well as COPD management. Will provide long-acting bronchodilator prescription upon discharge. Current tobacco user Counseled on smoking cessation. Patient slowly changing her mind on smoking cessation. Will continue to encourage and educate. BNP elevated Echo done, normal. No evidence of swelling/volume overload noted at this time. Will continue to monitor Repeat chest x-ray without any evidence of over load History of coronary stent placement Tachycardia Atrial fibrillation Cardiology consulted. Recommendations appreciated Continue full anticoagulation and Betapace. Patient now in normal sinus rhythm. DVT prophylaxis: Lovenox GI prophylaxis: None Diet: Heart healthy Disposition: Pending symptomatic improvement
[2018-11-13 15:02] LABS: Arterial Blood Carboxyhemoglob 1.1 % (0-1.5); Blood Gas Oxyhemoglobin 84.7 % (94-97); Blood O2 Saturation 86.2 % (92-98.5)
[2018-11-14] MEDS: IPRATROPIUM BROM 0.5MG/2.5ML NEB SCH ×4 (01:06→19:40)
[2018-11-14] MEDS: LEVALBUTEROL 1.25 MG/3 ML NEB NEB SCH ×4 (01:06→19:40)
[2018-11-14] MEDS: SOTALOL HCL 80 MG TAB PO SCH ×2 (05:07→17:23)
[2018-11-14] MEDS: NICOTINE 21 MG/PAT TD SCH (08:39)
[2018-11-14] MEDS: ENOXAPARIN 80 MG/0.8 ML SQ SCH ×2 (08:40→21:33)
[2018-11-14] MEDS: CEFUROXIME 250 MG TAB PO SCH ×2 (08:40→21:33)
[2018-11-14] MEDS: FUROSEMIDE 20 MG/ 2ML VIAL IV SCH ×2 (08:40→17:23)
[2018-11-14] MEDS: LOSARTAN/HCTZ 50-12.5 PO SCH (08:40)
[2018-11-14] MEDS: predniSONE 20 MG TAB PO SCH ×2 (08:40→21:33)
[2018-11-14] MEDS: DOXYCYCLINE 100 MG CAP PO SCH ×2 (08:40→21:34)
[2018-11-14] MEDS ORDERED: ACETAMINOPHEN 325 MG TABLET PO PRN (09:41)
[2018-11-14 09:42] LABS: Absolute Lymphocytes (CBC) 1.8 K/uL (0.7-4.9); Absolute Monocytes 0.8 K/uL (0.1-1.3); Absolute Neutrophil 10.1 K/uL (1.8-8.0); Basophils % 0.3 % (0-1.3); Eosinophils % 0.1 % (0-4.4); Hematocrit 46.4 % (36.0-45.0); Lymphocytes % 14.2 % (15.3-44.8); MPV 8.5 fL (7.6-11.3); Monocytes % 6.2 % (3.3-12.3); RBC Red Blood Cell Count 5.21 M/uL (3.86-4.86)
[2018-11-14 09:59] LABS: Potassium 3.6 mmol/L (3.5-5.1)
--- NOTE | 2018-11-14 10:33 | P.PN ---
Subjective Date of Service: 11/14/18 Chief Complaint: Respiratory days Patient is doing better today off BiPAP still has some cough congestion sputum cultures and negative Review of Systems General: Weakness Respiratory: Cough, Shortness of Breath Physical Examination - Vital Signs Temperature: 97.2 F Blood Pressure: 158/71 Pulse: 61 Respirations: 18 Pulse Ox (%): 96 - Physical Exam General: Alert, Oriented x3 Respiratory: Rhonchi/gurgles Cardiovascular: No edema, Regular rate/rhythm Assessment & Plan - Problems (Diagnosis) (1) COPD exacerbation Onset Date: 11/11/18 Current Visit: Yes Status: Acute Plan: Patient is 68 years of age admitted with COPD exacerbation doing better currently of BiPAP discharged home on Symbicort and Spiriva in addition to prednisone she needs to take it on a scheduled basis may qualify for home O2.
[2018-11-14] MEDS: GUAIFENESIN 600 MG SA TAB PO SCH ×2 (10:58→21:34)
--- NOTE | 2018-11-14 11:28 | PN ---
Date of Progress Note: 11/13/2018 Ms. Estrella is a 68-year-old woman who was admitted for COPD, had been seen by Dr. Fajardo for atrial fibrillation that occurred after albuterol inhalers. She is now on Betapace 80 mg 1 p.o. b.i.d. To day, she is in sinus rhythm. Remains short of breath, had received some Lasix, but examination surel y today by me showed no rales, no edema, expiratory and inspiratory wheezing. The case was discussed with Dr. Del Toro. I would continue inhalation treatment, resume steroid treatment, hold Lasix. Can co ntinue Betapace and Lovenox for now. We will continue to follow her. CRISTIAN/LUIS ENRIQUE Voice ID: [id number] Report ID: [id number]
[2018-11-14 11:39] LABS: Blood Morphology Comment NOT SEEN (NOT SEEN); Platelet Estimate ADEQ
--- NOTE | 2018-11-14 13:34 | P.PN ---
Subjective Date of Service: 11/14/18 Chief Complaint: Respiratory days Subjective: Improving Patient seen and examined at bedside. No family at bedside. Chart reviewed and case discussed with nursing staff. Now off BiPAP Reports improvement this morning Review of Systems 10-point ROS is otherwise unremarkable Physical Examination - Vital Signs Temperature: 97 F Blood Pressure: 197/82 Pulse: 67 Respirations: 18 Pulse Ox (%): 88 - Physical Exam General: Alert, In no apparent distress, Oriented x3 HEENT: Atraumatic, PERRLA, EOMI Neck: Supple, JVD not distended Respiratory: Dull, Crackles/rales Cardiovascular: Regular rate/rhythm, Normal S1 S2 Gastrointestinal: Normal bowel sounds, No tenderness Musculoskeletal: No tenderness Integumentary: No rashes Neurological: Normal speech, Normal tone, Normal affect Lymphatics: No axilla or inguinal lymphadenopathy Assessment And Plan - Current Problems (Diagnosis) (1) COPD exacerbation Onset Date: 11/11/18 Current Visit: Yes Status: Acute (2) Current tobacco use Onset Date: 11/11/18 Current Visit: Yes Status: Acute (3) Elevated brain natriuretic peptide (BNP) level Onset Date: 11/11/18 Current Visit: Yes Status: Acute (4) Tachycardia Current Visit: Yes Status: Acute (5) History of coronary artery stent placement Current Visit: Yes Status: Chronic (6) Atrial fibrillation Current Visit: Yes Status: Acute Qualifiers: Atrial fibrillation type: paroxysmal Qualified Code(s): I48.0 - Paroxysmal atrial fibrillation - Plan Acute respiratory distress Improved Continue to use BiPAP as needed. Continue antibiotics and steroids. Pulmonology on board Mucinex for cough/congestion COPD exacerbation No prior history of COPD on record. Patient was prescribed an inhaler from somewhere, Does not use it on a regular basis. Continue breathing treatments with Xopenex and ipratropium Switch IV antibiotics to oral antibiotics Change IV steroids to oral steroids She will need outpatient pulmonology followup for PFT testing as well as COPD management. Will provide long-acting bronchodilator prescription upon discharge. Social work involved for home oxygen set up. Current tobacco user Counseled on smoking cessation. Patient slowly changing her mind on smoking cessation. Will continue to encourage and educate. BNP elevated Echo done, normal. No evidence of swelling/volume overload noted at this time. Will continue to monitor Repeat chest x-ray without any evidence of over load History of coronary stent placement Tachycardia Atrial fibrillation Now in normal sinus rhythm Cardiology consulted. Recommendations appreciated Continue full anticoagulation and Betapace. Patient now in normal sinus rhythm. DVT prophylaxis: Lovenox GI prophylaxis: None Diet: Heart healthy Disposition: Pending symptomatic improvement. Can be discharged once home oxygen set up
--- NOTE | 2018-11-14 13:40 | PN ---
Subjective: Ms. Mccallum has been followed for atrial fibrillation and COPD. Today, she remains on Betapace 80 mg 1 p.o. b.i.d. She is in sinus rhythm. Yesterday, she was short of breath with a lot of wheezing, received more steroids, has improved today. Her rhythm remains normal as stated earlier . I would continue her Betapace and Lovenox when she goes home. I suggest she stays on Betapace and Eliquis or Xarelto to be decided by her primary care physician. We will sign off her case for now. We will see her in the office in the next 2-4 weeks. CRISTIAN/LUIS ENRIQUE Voice ID: [id number] Report ID: [id number]
[2018-11-14] MEDS ORDERED: POTASSIUM CL SA 10 MEQ TAB PO ONE (15:52)
[2018-11-15] MEDS: IPRATROPIUM BROM 0.5MG/2.5ML NEB SCH ×4 (01:28→19:45)
[2018-11-15] MEDS: LEVALBUTEROL 1.25 MG/3 ML NEB NEB SCH ×4 (01:28→19:45)
[2018-11-15] MEDS: SOTALOL HCL 80 MG TAB PO SCH ×2 (05:40→17:11)
[2018-11-15 06:54] LABS: Potassium 3.8 mmol/L (3.5-5.1)
[2018-11-15] MEDS: NICOTINE 21 MG/PAT TD SCH (08:40)
[2018-11-15] MEDS: LOSARTAN/HCTZ 50-12.5 PO SCH (08:41)
[2018-11-15] MEDS: GUAIFENESIN 600 MG SA TAB PO SCH ×2 (08:41→21:19)
[2018-11-15] MEDS: predniSONE 20 MG TAB PO SCH ×2 (08:41→21:19)
[2018-11-15] MEDS: DOXYCYCLINE 100 MG CAP PO SCH ×2 (08:41→21:19)
[2018-11-15] MEDS: FUROSEMIDE 20 MG/ 2ML VIAL IV SCH ×2 (08:43→17:12)
[2018-11-15] MEDS: CEFUROXIME 250 MG TAB PO SCH ×2 (08:43→21:25)
[2018-11-15] MEDS: ENOXAPARIN 80 MG/0.8 ML SQ SCH ×2 (08:44→21:19)
[2018-11-15] MEDS ORDERED: POTASSIUM CL SA 10 MEQ TAB PO ONE (09:00)
--- NOTE | 2018-11-15 11:37 | P.PN ---
Subjective Date of Service: 11/15/18 Chief Complaint: Respiratory days Subjective: Improving Patient seen and examined at bedside. Daughter at bedside. Chart reviewed and case discussed with nursing staff. Now off BiPAP. Currently on oxygen via 3 L nasal cannula Reports improvement this morning Review of Systems 10-point ROS is otherwise unremarkable Physical Examination - Vital Signs Temperature: 97.1 F Blood Pressure: 174/72 Pulse: 54 Respirations: 28 Pulse Ox (%): 91 - Physical Exam General: Alert, In no apparent distress, Oriented x3 HEENT: Atraumatic, PERRLA, EOMI Neck: Supple, JVD not distended Respiratory: Dull, Expiratory wheezes Cardiovascular: Regular rate/rhythm, Normal S1 S2 Gastrointestinal: Normal bowel sounds, No tenderness Musculoskeletal: No tenderness Integumentary: No rashes Neurological: Normal speech, Normal tone, Normal affect Lymphatics: No axilla or inguinal lymphadenopathy Assessment And Plan - Current Problems (Diagnosis) (1) COPD exacerbation Onset Date: 11/11/18 Current Visit: Yes Status: Acute (2) Current tobacco use Onset Date: 11/11/18 Current Visit: Yes Status: Acute (3) Elevated brain natriuretic peptide (BNP) level Onset Date: 11/11/18 Current Visit: Yes Status: Acute (4) Tachycardia Current Visit: Yes Status: Acute (5) History of coronary artery stent placement Current Visit: Yes Status: Chronic (6) Atrial fibrillation Current Visit: Yes Status: Acute Qualifiers: Atrial fibrillation type: paroxysmal Qualified Code(s): I48.0 - Paroxysmal atrial fibrillation - Plan Acute respiratory distress Improved Continue to use BiPAP as needed. Not needed overnight. Continue oxygen per protocol. Continue antibiotics and steroids. Pulmonology on board Mucinex for cough/congestion COPD exacerbation No prior history of COPD on record. Patient was prescribed an inhaler from somewhere, Does not use it on a regular basis. Continue breathing treatments with Xopenex and ipratropium Switch IV antibiotics to oral antibiotics Change IV steroids to oral steroids She will need outpatient pulmonology followup for PFT testing as well as COPD management. Will provide long-acting bronchodilator prescription upon discharge. Social work involved for home oxygen set up. Pending Current tobacco user Counseled on smoking cessation. Patient slowly changing her mind on smoking cessation. Will continue to encourage and educate. BNP elevated Echo done, normal. No evidence of swelling/volume overload noted at this time. Will continue to monitor Repeat chest x-ray without any evidence of over load History of coronary stent placement Tachycardia Atrial fibrillation Now in normal sinus rhythm Cardiology consulted. Recommendations appreciated Continue full anticoagulation and Betapace. Patient now in normal sinus rhythm. DVT prophylaxis: Lovenox GI prophylaxis: None Diet: Heart healthy Disposition: Pending symptomatic improvement. Can be discharged once home oxygen set up
[2018-11-16] MEDS: IPRATROPIUM BROM 0.5MG/2.5ML NEB SCH ×3 (01:25→14:43)
[2018-11-16] MEDS: LEVALBUTEROL 1.25 MG/3 ML NEB NEB SCH ×3 (01:25→14:43)
[2018-11-16] MEDS: SOTALOL HCL 80 MG TAB PO SCH ×2 (05:37→16:58)
[2018-11-16 06:02] LABS: Potassium 3.9 mmol/L (3.5-5.1)
[2018-11-16] MEDS ORDERED: POTASSIUM CL SA 10 MEQ TAB PO ONE (06:23)
[2018-11-16] MEDS: GUAIFENESIN 600 MG SA TAB PO SCH (08:09)
[2018-11-16] MEDS: predniSONE 20 MG TAB PO SCH (08:09)
[2018-11-16] MEDS: CEFUROXIME 250 MG TAB PO SCH (08:09)
[2018-11-16] MEDS: NICOTINE 21 MG/PAT TD SCH (08:10)
[2018-11-16] MEDS: DOXYCYCLINE 100 MG CAP PO SCH (08:11)
[2018-11-16] MEDS: FUROSEMIDE 20 MG/ 2ML VIAL IV SCH ×2 (08:11→16:58)
[2018-11-16] MEDS: LOSARTAN/HCTZ 50-12.5 PO SCH (08:11)
[2018-11-16] MEDS: ENOXAPARIN 80 MG/0.8 ML SQ SCH (08:12)
[2018-11-16 08:13] VITALS: BP 147/67
[2018-11-16 08:40] VITALS: TEMP 97.2
--- NOTE | 2018-11-16 08:40 | P.PN ---
Subjective Date of Service: 11/16/18 Chief Complaint: Respiratory failure Patient is doing much better wants to go home awaiting home O2 Review of Systems Unremarkable Physical Examination - Vital Signs Temperature: 97.2 F Blood Pressure: 147/67 Pulse: 54 Respirations: 17 Pulse Ox (%): 93 - Physical Exam General: Alert, Oriented x3 Respiratory: Clear to auscultation bilaterally Cardiovascular: No edema, Regular rate/rhythm - Studies Microbiology Data (last 24 hrs): 11/10/18 14:57 Blood - Blood Aerobic Blood Culture - Final No growth in 5 days. 11/10/18 14:57 Blood - Blood Anaerobic Blood Culture - Final No growth in 5 days. 11/10/18 14:25 Blood - Blood Aerobic Blood Culture - Final No growth in 5 days. 11/10/18 14:25 Blood - Blood Anaerobic Blood Culture - Final No growth in 5 days. Assessment & Plan - Problems (Diagnosis) (1) COPD exacerbation Onset Date: 11/11/18 Current Visit: Yes Status: Acute Plan: Patient is doing much better she now has chronic stable COPD requires home oxygen she is to be discharged home on prednisone and bronchodilators follow up with me in 2 weeks advised to stop smoking oxygen 24 set vital signs all stable no evidence of sepsis
[2018-11-16 10:09] VITALS: O2SAT 94
--- NOTE | 2018-11-16 12:06 | P.DS ---
Admission Date: 11/10/18 Discharge Date: 11/16/18 Disposition: ROUTINE DISCHARGE Discharge Condition: FAIR Reason for Admission: Respiratory failure Consultations: Pulmonology Cardiology - Problems (1) COPD exacerbation Onset Date: 11/11/18 Current Visit: Yes Status: Acute (2) Current tobacco use Onset Date: 11/11/18 Current Visit: Yes Status: Acute (3) Elevated brain natriuretic peptide (BNP) level Onset Date: 11/11/18 Current Visit: Yes Status: Acute (4) Tachycardia Current Visit: Yes Status: Acute (5) History of coronary artery stent placement Current Visit: Yes Status: Chronic (6) Atrial fibrillation Current Visit: Yes Status: Acute Qualifiers: Atrial fibrillation type: paroxysmal Qualified Code(s): I48.0 - Paroxysmal atrial fibrillation Brief History of Present Illness: This is a 68-year-old female, active smoker with prior coronary stent placement admitted for shortness of breath, fevers and productive cough. Per patient she has been having this productive cough and fevers/chills for the past few days that has been progressively worsening. This is what brought her to the ER. In the ER, her chest x-ray showed bilateral opacities, she was tachycardic, febrile and tachypneic. Her lab work was pertinent for white count of 9.1, pro calcitonin was negative. In the ER, she received Rocephin and Zithromax, steroids and Xopenex breathing treatments. She was admitted for further evaluation/treatment. At the time of my exam, patient was alert oriented x3, in mild to moderate respiratory distress, tachycardic but afebrile. Hospital Course: Patient was admitted for acute respiratory distress. She was started on breathing treatments, oxygen was used as needed. She was unable to be weaned off, and she did require BiPAP use at some point. She was weaned off of BiPAP. It seems that she has chronic COPD exacerbation, stable now still requiring oxygen use. She was given antibiotics and IV steroids. Pulmonology was consulted. Antibiotics was discontinued on discharge, as no evidence of sepsis/ infection. She will need outpatient pulmonology follow up in 2 weeks for further COPD management. Long-acting bronchodilator prescriptions given to patient. Social work was consulted for home oxygen set up. Patient will be discharged home once that set up. Throughout the stay, echo was done which was with normal ejection fraction. No evidence of volume overload or swelling was noted throughout the stay. Her stay was complicated by her developing the tachycardia/atrial fibrillation, which was converted to normal sinus rhythm on sotalol. Cardiology was consulted. She will be discharged on sotalol and anticoagulation with instructions to follow up outpatient with Cardiology in 2 weeks. Vital Signs/Physical Exam: Temp Pulse Resp BP Pulse Ox 97.2 F 54 17 147/67 H 93 11/16/18 08:40 11/16/18 08:40 11/16/18 08:40 11/16/18 08:40 11/16/18 08:40 General: Alert, In no apparent distress, Oriented x3 HEENT: Atraumatic, PERRLA, EOMI Neck: Supple, JVD not distended Respiratory: Normal air movement, Expiratory wheezes Cardiovascular: Regular rate/rhythm, Normal S1 S2 Gastrointestinal: Normal bowel sounds, No tenderness Musculoskeletal: No tenderness Integumentary: No rashes Neurological: Normal speech, Normal tone, Normal affect Lymphatics: No axilla or inguinal lymphadenopathy Laboratory Data at Discharge: WBC 12.8 K/uL (4.3-10.9) H 11/14/18 09:26 Hgb 15.3 g/dL (12.0-15.0) H 11/14/18 09:26 Hct 46.4 % (36.0-45.0) H 11/14/18 09:26 Plt Count 297 K/uL (152-406) 11/14/18 09:26 Sodium 134 mmol/L (136-145) L 11/16/18 05:34 Potassium 3.9 mmol/L (3.5-5.1) 11/16/18 05:34 BUN 37 mg/dL (7-18) H 11/16/18 05:34 Creatinine 1.07 mg/dL (0.55-1.3) 11/16/18 05:34 Glucose 177 mg/dL (74-106) H 11/16/18 05:34 Total Bilirubin 0.2 mg/dL (0.2-1.0) 11/13/18 05:45 AST 104 U/L (15-37) H 11/13/18 05:45 ALT 148 U/L (12-78) H 11/13/18 05:45 Alkaline Phosphatase 119 U/L (45-117) H 11/13/18 05:45 Home Medications: Aspirin 81 mg PO DAILY 11/11/18 Budesonide/Formoterol Fumarate [Symbicort 160-4.5 Mcg Inhaler] 2 puff IH BID 30 Days hfa.aer.ad 11/14/18 Tiotropium [place] [Spiriva Respimat] 4 gm IH DAILY #1 mist.inhal 11/14/18 predniSONE [Prednisone*] 10 mg PO BID #20 tab 11/14/18 Apixaban [Eliquis] 5 mg PO BID #60 tablet 11/16/18 Sotalol HCl [Betapace*] 80 mg PO BID 6AM 6PM #60 tab 11/16/18 New Medications: Apixaban [Eliquis] 5 mg PO BID #60 tablet Budesonide/Formoterol Fumarate [Symbicort 160-4.5 Mcg Inhaler] 2 puff IH BID 30 Days hfa.aer.ad predniSONE [Prednisone*] 10 mg PO BID #20 tab Sotalol HCl [Betapace*] 80 mg PO BID 6AM 6PM #60 tab Tiotropium [place] [Spiriva Respimat] 4 gm IH DAILY #1 mist.inhal Patient Discharge Instructions: Please follow up with the primary care physician in 1 week. Please follow up with the purification operator in 2 weeks. Information provided to you. Please return to the emergency room for worsening symptoms. Diet: Regular Activity: Ad jhonny Followup: Kishore Aparicio MD [ACTIVE - CAN ADMIT] - Henry Bates MD [ACTIVE - CAN ADMIT] - Time spent managing pt's care (in minutes): 55
--- NOTE | 2018-11-16 12:59 | PN ---
Subjective: Ms. Mccallum has remained in sinus rhythm. She is still on Lovenox. When she is discha rged, she should be given a prescription for either Eliquis 5 b.i.d. or Xarelto 20 mg once a day and of course, stop the Lovenox, but we should continue the Betapace, and she should have followup visits with us to maintain sinus rhythm as long as possible. MATT/LUIS ENRIQUE Voice ID: [id number] Report ID: [id number]
== END 2018-11-16 17:13 | disposition home or self-care (01) | DRG 191 ==
LOC: ER 13:43 → ERHOLD 17:16 → 4TH 20:07
PROVIDERS: ADMIT Family Medicine; ATTEND Family Medicine
PROC: 5A09457 Assistance with Respiratory Ventilation, 24-96 Consecutive Hours, Continuous Positive Airway Pressure (ICD-10-PCS; principal; 2018-11-12)
DX: J44.1 Chronic obstructive pulmonary disease with (acute) exacerbation (principal); J81.1 Chronic pulmonary edema; F17.210 Nicotine dependence, cigarettes, uncomplicated; R79.89 Other specified abnormal findings of blood chemistry; R00.0 Tachycardia, unspecified; I25.10 Atherosclerotic heart disease of native coronary artery without angina pectoris; Z95.5 Presence of coronary angioplasty implant and graft; I48.0 Paroxysmal atrial fibrillation; I16.0 Hypertensive urgency; R06.03 Acute respiratory distress
CPT/HCPCS: 36415; 71045; 71046; 80048; 80053; 81003; 82805; 82962; 83605; 83880; 84145; 84443; 85025; 87040; 87070; 87081; 87086; 87088; 87205; 87804; 93005; 93306; 94640; 94660; 94760; 94761; 96361; 96365; 96366; 96375; 97116; 97163; 97530; 99285; J0360; J0456; J0696; J1650; J1940; J2270; J2920; J2930; J7030; J7512

== ENCOUNTER 2019-06-25 21:49 | Emergency (ER) | payer OTHER ==
[2019-06-25] MEDS ORDERED: ETOMIDATE 20 MG/10 ML VIAL IV ONE (21:50)
[2019-06-25] MEDS ORDERED: SUCCINYLCHOLINE 20 MG/ML (10 ML) IV ONE (21:50)
[2019-06-25] MEDS ORDERED: IPRATROPIUM BROM 0.5MG/2.5ML ONE (21:58)
[2019-06-25] MEDS ORDERED: ALBUTEROL 2.5 MG/3 ML NEB SOL ONE ×2 (21:58→22:13)
[2019-06-25] MEDS ORDERED: ENALAPRILAT 1.25 MG/ML VIAL IV ONE (22:00)
[2019-06-25 22:15] LABS: Blood Gas Oxyhemoglobin 90.4 % (94-97); Blood O2 Saturation 97.1 % (92-98.5)
[2019-06-25] MEDS ORDERED: FUROSEMIDE 40 MG/4 ML VIAL ONE (22:27)
[2019-06-25] MEDS ORDERED: FUROSEMIDE 20 MG/ 2ML VIAL ONE (22:27)
[2019-06-25 23:07] LABS: ALT/SGPT 21 U/L (12-78); AST/SGOT 26 U/L (15-37); Albumin 3.8 g/dL (3.4-5.0); Alkaline Phosphatase 71 U/L (45-117); BUN Blood Urea Nitrogen 23 mg/dL (7-18); Bicarbonate 30 mmol/L (21-32); Bilirubin Direct < 0.1 mg/dL (0-0.2); Bilirubin Total 0.4 mg/dL (0.2-1.0); Glucose Level 161 mg/dL (74-106); NT PRO-BNP 2201 pg/mL (<125); Potassium 3.8 mmol/L (3.5-5.1); Protein, Total 8.2 g/dL (6.4-8.2); Sodium Level 137 mmol/L (136-145); Troponin (Emerg Dept Use Only) 0.02 ng/mL (0.0-0.045)
--- NOTE | 2019-06-25 23:09 | ER ---
Nurse's Notes [facility] Name: Cindi Mccallum Age: 68 yrs Sex: Female : 1950 Arrival Date: 06/25/2019 Time: 21:50 Bed 4 Private MD: Diagnosis: ST elevation (STEMI) myocardial infarction of inferior wall;Acute respiratory failure Presentation: 06/25 21:56 Presenting complaint: EMS states: Pt reported having trouble breathing for the past two ea hours, EMS initiated A\T\A treatment, and 125 solu medrol without relief, pt placed on CPAP. Transition of care: patient was not received from another setting of care. Onset of symptoms was June 25, 2019. Risk Assessment: Do you want to hurt yourself or someone else? Patient reports no desire to harm self or others. Initial Sepsis Screen: Does the patient meet any 2 criteria? RR > 20 per min. HR > 90 bpm. Yes Does the patient have a suspected source of infection? No. Patient's initial sepsis screen is negative. Care prior to arrival: 20 G to left AC, CPAP, solu medrol 125mg, A\T\A. 21:56 Method Of Arrival: EMS: [facility] ea 21:56 Acuity: PRATIK 1 ea Triage Assessment: 22:00 General: Appears uncomfortable, Behavior is cooperative. Pain: Unable to use pain ea scale. FLACC scale score is 3 out of 10. Respiratory: Airway is patent Respiratory effort is labored, Respiratory pattern is tachypnea. Derm: Skin is dry, Skin is pale, Skin temperature is warm. Historical: - Allergies: 21:59 clopidogrel bisulfate; ea - Home Meds: 21:59 Metoprolol Tartrate Oral [Active]; Aspirin Oral [Active]; ea - PMHx: 21:59 Hypertension; Atrial Fib; COPD; ea - PSHx: 21:59 Heart stents; Appendectomy; Hysterectomy; ea - Immunization history:: Adult Immunizations up to date. - Social history:: Smoking status: unknown. - Ebola Screening: : No symptoms or risks identified at this time. Screenin:58 Abuse screen: Denies threats or abuse. Nutritional screening: No deficits noted. ea Tuberculosis screening: No symptoms or risk factors identified. Fall Risk IV access (20 points). Assessment: 22:00 General: Appears distressed, Behavior is unresponsive. Pain: Unable to use pain scale. lp1 Patient is disoriented. Neuro: Level of Consciousness is awake, Oriented to none. Cardiovascular: Patient's skin is warm and dry. Respiratory: Airway is patent Trachea midline Respiratory effort is labored, Respiratory pattern is tachypnea Breath sounds with wheezes bilaterally. the patient has severe shortness of breath. 22:15 General: Appears well developed, Behavior is calm. Pain: Denies pain. Neuro: Level of lp1 Consciousness is awake, Oriented to person, place. Cardiovascular: Patient's skin is warm and dry. Respiratory: Respiratory effort is labored, BiPAP in place. GI: Abdomen is non-distended. : No deficits noted. EENT: No deficits noted. Derm: Skin is fragile, is thin, Skin is dry, Skin is normal. Musculoskeletal: No deficits noted. 22:15 Reassessment: Patient responding to questions at this time. lp1 23:15 Reassessment: Patient appears in no apparent distress at this time. No changes from [facility] previously documented assessment. Patient and spouse aware of pending admission. 23:45 Reassessment: Patient continued on BiPAP, hard to arouse at this time; Dr. Castaneda at [facility] bedside. 23:45 Neuro: Level of Consciousness is responsive to painful stimuli. 1 06/26 00:05 Reassessment: Verbal order by Dr. Castaneda to repeat EKG. [facility] 00:25 Reassessment: Patient's top and bottom dentures given to . 1 00:45 Reassessment: Large BM noted during sarkar catheter insertion. [facility] 01:25 Reassessment: Attempted to call report; Call center states no nurse available for [facility] report. 01:35 Reassessment: [facility] at bedside for patient transfer to [address] 02:00 Reassessment: Report given to JUAN DIEGO Gamino for patient transfer to [address] Vital Signs: 06/25 21:53 BP 227 / 113; Pulse 108; Resp 38; Temp 98; Pulse Ox 95% on BiPAP; Weight 70.31 kg; 1 Height 5 ft. 5 in. (165.10 cm); 22:00 BP 191 / 92; Pulse 104; Resp 36; Pulse Ox 99% on 90% BiPAP; lp1 22:15 BP 172 / 80; Pulse 95; Resp 38; Pulse Ox 100% on 90% BiPAP; lp1 22:30 BP 161 / 75; Pulse 91; Resp 38; Pulse Ox 100% on 90% BiPAP; lp1 22:45 BP 153 / 77; Pulse 88; Resp 36; Pulse Ox 99% on 90% BiPAP; lp1 23:00 BP 139 / 67; Pulse 89; Resp 34; Pulse Ox 99% on 90% BiPAP; lp1 23:30 BP 99 / 66; Pulse 67; Resp 32; Pulse Ox 99% on 90% BiPAP; lp1 23:45 BP 113 / 70; Pulse 68; Resp 26; Pulse Ox 99% on 90% BiPAP; lp1 06/26 00:00 BP 128 / 68; Pulse 72; Resp 33; Pulse Ox 98% on 90% BiPAP; lp1 00:15 BP 116 / 75; Pulse 74; Resp 28; Pulse Ox 96% on 90% BiPAP; lp1 00:30 BP 120 / 61; Pulse 87; Resp 24; Pulse Ox 98% on 90% BVM; lp1 00:35 BP 117 / 76; Pulse 71; Resp 16; Pulse Ox 100% on BVM; lp1 00:35 lp1 00:45 BP 121 / 48; Pulse 66; Resp 20; Pulse Ox 100% on ETT vent; lp1 01:00 BP 117 / 57; Pulse 67; Resp 18; Pulse Ox 100% on ETT vent; lp1 01:10 BP 102 / 50; Pulse 64; Resp 20; Pulse Ox 100% on ETT vent; lp1 01:20 BP 98 / 52; Pulse 66; Resp 20; Pulse Ox 100% on ETT vent; lp1 01:30 BP 88 / 52; Pulse 64; Resp 20; Pulse Ox 100% on ETT vent; lp1 01:35 BP 95 / 62; Pulse 92; Resp 20; Pulse Ox 100% on ETT vent; lp1 06/25 21:53 Body Mass Index 25.79 (70.31 kg, 165.10 cm) lp1 06/25 22:00 BiPAP settings: 18/7, rate 16, O2 90% lp1 06/26 00:35 Vent Settings: TV 460, 100% O2, Rate 16, Peep 5 lp1 ED Course: 06/25 21:50 Patient arrived in ED. ag3 21:54 Samuel Castaneda MD is Attending Physician. gs 21:58 Triage completed. ea 22:01 Patient has correct armband on for positive identification. Placed in gown. Bed in low ea position. Call light in reach. Side rails up X2. 22:01 Arm band placed on left wrist. Patient placed in an exam room, on a stretcher, on ea cardiac monitor technician, on pulse oximetry, placed on BiPAP per respiratory. 22:07 Margie Goldstein RN is Primary Nurse. lp1 22:27 X-ray completed. Portable x-ray completed in exam room. Patient tolerated procedure mh1 well. 22:28 BIPAP Sent. mw2 22:30 XRAY Chest (1 view) In Process Unspecified. EDMS 23:06 Alvaro Del Toro MD is Hospitalizing Provider. gs 23:24 No provider procedures requiring assistance completed. Patient admitted, IV remains in lp1 place. 06/26 00:00 One-on-one care X 90 minutes. lp1 00:24 Assisted provider with intubation using 7.5 mm ETT via oral route. ET tube secured at lp1 21cm at the lips. 00:28 20 g IV to L AC pulled out. lp1 00:30 Inserted saline lock: 18 gauge in right antecubital area, using aseptic technique. By lp1 Pamella Calles RN. 00:30 NGT: inserted 14 Fr. via right nare. verified placement of air over stomach, verified lp1 return of gastric contents, Placement verified by X-ray, to intermittent suction. Returned gastric contents. 00:47 Sarkar cath inserted, using sterile technique, 16 Fr., by ED staff, balloon inflated, to lp1 gravity drainage. 01:00 Procedure consent explained by physician, signed by spouse, Consent for administration lp1 of Tenecteplase . 01:00 Inserted saline lock: 18 gauge in left antecubital area, using aseptic technique. By lp1 Pamella Calles RN. Administered Medications: 06/25 22:00 Drug: Albuterol - atroVENT (3:1) (2.5 mg - 0.5 mg) 3 ml Route: Nebulizer; lp1 06/26 00:00 Follow up: Response: No adverse reaction lp1 06/25 22:01 Drug: Enalaprilat 1.25 mg Route: IV; Rate: calculated rate; Site: left antecubital; aa1 22:30 Follow up: Response: Blood pressure is lowered; IV Status: Completed infusion lp1 22:29 Drug: Lasix 60 mg Route: IVP; Site: left antecubital; ea 23:30 Follow up: Response: No adverse reaction lp1 22:59 CANCELLED (Solu-Medrol adminstered by EMS): SOLU-Medrol 80 mg IVP once lp1 06/26 00:22 Drug: Etomidate 10 mg Route: IVP; Site: left antecubital; lp1 00:30 Follow up: Response: No adverse reaction lp1 00:22 Drug: Succinylcholine 120 mg Route: IVP; Site: left antecubital; lp1 00:30 Follow up: Response: No adverse reaction lp1 00:35 Drug: Propofol 5 mcg/kg/min Route: IV; Rate: calculated rate; Site: right antecubital; lp1 01:09 Follow up: Rate change 10 mcg/kg/min lp1 01:45 Follow up: IV Status: Infusion continued upon transfer lp1 00:45 Drug: Aspirin Suppository 600 mg Route: [place]; lp1 01:30 Follow up: Response: No adverse reaction lp1 01:00 Drug: Heparin (IN Drip) 12 units/kg/hr - (HEParin 49116 units, D5W 500 ml) lp1 {Co-Signature: zulema (Bonnie Stringer RN).} {Note: By Pamella Calles RN.} Route: IV; Rate: calculated rate; Site: left antecubital; :45 Follow up: IV Status: Infusion continued upon transfer lp1 01:00 Drug: Tenecteplase 35 mg {Co-Signature: zulema (Bonnie Stringer RN).} Route: IV; Rate: lp1 calculated rate; Site: left antecubital; 01:35 Follow up: IV Status: Completed infusion lp1 01:00 Drug: Heparin (IN-Bolus with thrombolytic) - HEParin 60 units/kg {Co-Signature: zulema youngblood (Bonnie Stringer RN).} {Note: Given by pamella Calles RN.} Route: IVP; Site: left antecubital; 01:30 Follow up: Response: No adverse reaction lp1 01:18 Drug: NS 0.9% 750 ml Route: IV; Rate: 1 bolus; Site: right antecubital; lp1 01:45 Follow up: IV Status: Infusion continued upon transfer lp1 01:18 Drug: fentaNYL (PF) 75 mcg {Note: RASS 2.} Route: IVP; Site: right antecubital; lp1 01:30 Follow up: Response: No adverse reaction; Marked relief of symptoms lp1 01:21 CANCELLED (Patient intubated): PlaVIX 300 mg PO once lp1 Outcome: 06/25 23:07 Decision to Hospitalize by Provider. 23:24 critical lp1 23:24 Instructed on the need for admit. 23:30 Admitted to ICU accompanied by nurse, accompanied by tech, via stretcher, room 1, with lp1 oxygen, on monitor, with chart, Report called to JUAN DIEGO Oliva 06/26 00:47 ER care complete, transfer ordered by . 01:50 Patient left the ED. 1 Signatures: Dispatcher [employer] EDMS Jessica Richards RN RN Pamella Tillman [facility] Margie Goldstein RN RN lp1 Antunez, Elena, RN RN ea Starr, Gregory, MD MD Zander Foy 2 Rani Franco 3 Bonnie Stringer RN, ea Corrections: (The following items were deleted from the chart) 06/25 22:33 21:56 Acuity: PRATIK 2 [facility] 06/26 00:53 06/25 21:53 BP 227 / 113; Pulse 108bpm; Resp 38bpm; Pulse Ox 95% BiPAP; Temp 98F; lp1 Height 5 ft. 2 in.; ea 06/26 02:28 06/25 23:15 Reassessment: Patient appears in no apparent distress at this time. No lp1 changes from previously documented assessment. lp1 06/26 02:33 02:32 Patient left the ED. lp1 lp1 02:41 06/25 23:45 Reassessment: Patient continued on BiPAP, hard to arouse at this time; Dr. ford Castaneda at bedside lp1
--- NOTE | 2019-06-25 23:09 | EDPHYS ---
Physician Documentation [facility] Name: Cindi Mccallum Age: 68 yrs Sex: Female : 1950 Arrival Date: 06/25/2019 Time: 21:50 Bed 4 Private MD: ED Physician Samuel Castaneda HPI: 06/25 22:44 This 68 yrs old Female presents to ER via EMS with complaints of SHOB. gs 22:44 The patient has shortness of breath at rest. Onset: The symptoms/episode began/occurred gs acutely, today. Duration: The symptoms are continuous, and are markedly worse than the original presentation. The patient's shortness of breath has no apparent modifying factors. Severity of symptoms: At their worst the symptoms were incapacitating in the emergency department the symptoms are unchanged. The patient has experienced similar episodes in the past, multiple times. Historical: - Allergies: 21:59 clopidogrel bisulfate; ea - Home Meds: 21:59 Metoprolol Tartrate Oral [Active]; Aspirin Oral [Active]; ea - PMHx: 21:59 Hypertension; Atrial Fib; COPD; ea - PSHx: 21:59 Heart stents; Appendectomy; Hysterectomy; ea - Immunization history:: Adult Immunizations up to date. - Social history:: Smoking status: unknown. - Ebola Screening: : No symptoms or risks identified at this time. ROS: 22:44 Unable to obtain ROS due to patient distress. gs Exam: 22:44 Head/Face: Normocephalic, atraumatic. Eyes: Pupils equal round and reactive to light, gs extra-ocular motions intact. Lids and lashes normal. Conjunctiva and sclera are non-icteric and not injected. Cornea within normal limits. Periorbital areas with no swelling, redness, or edema. ENT: Nares patent. No nasal discharge, no septal abnormalities noted. Tympanic membranes are normal and external auditory canals are clear. Oropharynx with no redness, swelling, or masses, exudates, or evidence of obstruction, uvula midline. Mucous membranes moist. Neck: Trachea midline, no thyromegaly or masses palpated, and no cervical lymphadenopathy. Supple, full range of motion without nuchal rigidity, or vertebral point tenderness. No Meningismus. Chest/axilla: Normal chest wall appearance and motion. Nontender with no deformity. No lesions are appreciated. 22:44 Abdomen/GI: Soft, non-tender, with normal bowel sounds. No distension or tympany. No guarding or rebound. No evidence of tenderness throughout. Back: No spinal tenderness. No costovertebral tenderness. Full range of motion. Skin: Warm, dry with normal turgor. Normal color with no rashes, no lesions, and no evidence of cellulitis. MS/ Extremity: Pulses equal, no cyanosis. Neurovascular intact. Full, normal range of motion. 22:44 Constitutional: The patient appears in obvious distress, severely distressed. 22:44 Cardiovascular: Rate: tachycardic, Rhythm: regular, Pulses: no pulse deficits are appreciated, Edema: 1+ edema to level of left foot and right foot. 22:44 ECG was reviewed by the Attending Physician. 22:44 Respiratory: severe repiratory distress is noted, Respirations: shallow respirations, tachypnea, Breath sounds: wheezing: that is moderate. 22:44 Neuro: Orientation: to person, Mentation: unable to follow commands, Cranial nerves: CN II- XII are normal as tested, Motor: moves all fours. Vital Signs: 21:53 BP 227 / 113; Pulse 108; Resp 38; Temp 98; Pulse Ox 95% on BiPAP; Weight 70.31 kg; lp1 Height 5 ft. 5 in. (165.10 cm); 22:00 BP 191 / 92; Pulse 104; Resp 36; Pulse Ox 99% on 90% BiPAP; lp1 22:15 BP 172 / 80; Pulse 95; Resp 38; Pulse Ox 100% on 90% BiPAP; lp1 22:30 BP 161 / 75; Pulse 91; Resp 38; Pulse Ox 100% on 90% BiPAP; lp1 22:45 BP 153 / 77; Pulse 88; Resp 36; Pulse Ox 99% on 90% BiPAP; lp1 23:00 BP 139 / 67; Pulse 89; Resp 34; Pulse Ox 99% on 90% BiPAP; lp1 23:30 BP 99 / 66; Pulse 67; Resp 32; Pulse Ox 99% on 90% BiPAP; lp1 23:45 BP 113 / 70; Pulse 68; Resp 26; Pulse Ox 99% on 90% BiPAP; lp1 06/26 00:00 BP 128 / 68; Pulse 72; Resp 33; Pulse Ox 98% on 90% BiPAP; lp1 00:15 BP 116 / 75; Pulse 74; Resp 28; Pulse Ox 96% on 90% BiPAP; lp1 00:30 BP 120 / 61; Pulse 87; Resp 24; Pulse Ox 98% on 90% BVM; lp1 00:35 BP 117 / 76; Pulse 71; Resp 16; Pulse Ox 100% on BVM; lp1 00:35 lp1 00:45 BP 121 / 48; Pulse 66; Resp 20; Pulse Ox 100% on ETT vent; lp1 01:00 BP 117 / 57; Pulse 67; Resp 18; Pulse Ox 100% on ETT vent; lp1 01:10 BP 102 / 50; Pulse 64; Resp 20; Pulse Ox 100% on ETT vent; lp1 01:20 BP 98 / 52; Pulse 66; Resp 20; Pulse Ox 100% on ETT vent; lp1 01:30 BP 88 / 52; Pulse 64; Resp 20; Pulse Ox 100% on ETT vent; lp1 01:35 BP 95 / 62; Pulse 92; Resp 20; Pulse Ox 100% on ETT vent; lp1 06/25 21:53 Body Mass Index 25.79 (70.31 kg, 165.10 cm) lp1 06/25 22:00 BiPAP settings: 18/7, rate 16, O2 90% lp1 06/26 00:35 Vent Settings: TV 460, 100% O2, Rate 16, Peep 5 lp1 Procedures: 00:27 Intubation: Ventilated with 100% NRB prior to procedure. O2 saturation prior to gs procedure was 99 %. Intubated orally using # 4 Fernanda blade with 7.5 mm ETT. was successful on first attempt. Ventilated with Ambu bag. ventilator. Tube secured with ETT figueroa Placement verified by CXR, CO2 detector with (+) color change, auscultating bilateral breath sounds, O2 saturation after procedure was 100 %. Patient tolerated well. MDM: 06/25 22:05 Patient medically screened. gs 22:44 Differential diagnosis: CHF exacerbation, Chronic Obstructive Pulmonary Disease gs Myocardial Infarction pneumonia. Data reviewed: vital signs, old medical records, lab test result(s), EKG, radiologic studies. Counseling: I had a detailed discussion with the patient and/or guardian regarding: the historical points, exam findings, and any diagnostic results supporting the discharge/admit diagnosis, lab results, radiology results. 23:06 Response to treatment: the patient's symptoms have markedly improved after treatment, alert answer question vs stabilized. 06/26 00:27 ED course: called to room prior to going to icu, more lethargic st changes on monitor. 06/25 22:07 Order name: Basic Metabolic Panel 06/25 22:07 Order name: CBC with Diff; Complete Time: 01:13 06/25 22:07 Order name: LFT's; Complete Time: 00:30 06/25 22:07 Order name: Magnesium; Complete Time: 00:30 06/25 22:07 Order name: NT PRO-BNP; Complete Time: 00:30 06/25 22:07 Order name: PT-INR; Complete Time: 00:30 06/25 22:07 Order name: Troponin (emerg Dept Use Only); Complete Time: 00:30 06/25 22:08 Order name: Basic Metabolic Panel; Complete Time: 00:30 EDTN 06/25 22:13 Order name: ABG; Complete Time: 22:41 lp1 06/25 23:17 Order name: CBC with Automated Diff EDTN 06/25 23:17 Order name: Comprehensive Metabolic Panel EDTN 06/25 23:21 Order name: ABG Arterial Blood Gas; Complete Time: 01:13 EDTN 06/25 22:06 Order name: BIPAP 06/25 22:07 Order name: XRAY Chest (1 view) 06/25 23:26 Order name: Manual Differential; Complete Time: 01:13 EDTN 06/26 00:09 Order name: CT Head Brain wo Cont 06/26 00:40 Order name: Chest Single View XRAY 06/25 22:07 Order name: EKG; Complete Time: 22:08 06/25 22:07 Order name: Cardiac monitoring; Complete Time: 22:07 06/25 22:07 Order name: EKG - Nurse/Tech; Complete Time: 22: 06/25 22:07 Order name: IV Saline Lock; Complete Time: 22:08 06/25 22:07 Order name: Labs collected and sent; Complete Time: :28 06/25 22:07 Order name: O2 Per Protocol; Complete Time: 22: 06/25 22:07 Order name: O2 Sat Monitoring; Complete Time: 22:08 gs 06/25 23:17 Order name: CONS Pharmacy Consult EDTN 06/25 23:17 Order name: CONS Physician Consult EDTN 06/25 23:17 Order name: NPO; Complete Time: 01:27 EDMS 06/25 23:56 Order name: EKG - Nurse/Tech; Complete Time: 01:26 gs EC/27 22:44 Rate is 105 beats/min. Rhythm is regular. [place] interval is normal. QRS interval is gs prolonged. T waves are Inverted. Clinical impression: NSR w/ Non-specific ST/T Changes and Abnormal EKG without significant change. Interpreted by me. Administered Medications: 22:00 Drug: Albuterol - atroVENT (3:1) (2.5 mg - 0.5 mg) 3 ml Route: Nebulizer; lp1 06/26 00:00 Follow up: Response: No adverse reaction lp1 06/25 22:01 Drug: Enalaprilat 1.25 mg Route: IV; Rate: calculated rate; Site: left antecubital; aa1 22:30 Follow up: Response: Blood pressure is lowered; IV Status: Completed infusion lp1 22:29 Drug: Lasix 60 mg Route: IVP; Site: left antecubital; ea 23:30 Follow up: Response: No adverse reaction lp1 22:59 CANCELLED (Solu-Medrol adminstered by EMS): SOLU-Medrol 80 mg IVP once lp1 06/26 00:22 Drug: Etomidate 10 mg Route: IVP; Site: left antecubital; lp1 00:30 Follow up: Response: No adverse reaction lp1 00:22 Drug: Succinylcholine 120 mg Route: IVP; Site: left antecubital; lp1 00:30 Follow up: Response: No adverse reaction lp1 00:35 Drug: Propofol 5 mcg/kg/min Route: IV; Rate: calculated rate; Site: right antecubital; lp1 01:09 Follow up: Rate change 10 mcg/kg/min lp1 01:45 Follow up: IV Status: Infusion continued upon transfer lp1 00:45 Drug: Aspirin Suppository 600 mg Route: [place]; lp1 01:30 Follow up: Response: No adverse reaction lp1 01:00 Drug: Heparin (DC Drip) 12 units/kg/hr - (HEParin 68162 units, D5W 500 ml) lp1 {Co-Signature: zulema (Bonnie Stringer RN).} {Note: By Pamella Calles RN.} Route: IV; Rate: calculated rate; Site: left antecubital; 01:45 Follow up: IV Status: Infusion continued upon transfer lp1 01:00 Drug: Tenecteplase 35 mg {Co-Signature: zulema Stringer RN).} Route: IV; Rate: lp1 calculated rate; Site: left antecubital; 01:35 Follow up: IV Status: Completed infusion lp1 01:00 Drug: Heparin (DC-Bolus with thrombolytic) - HEParin 60 units/kg {Co-Signature: zulema lp1 (Bonnie Stringer RN).} {Note: Given by pamella Calles RN.} Route: IVP; Site: left antecubital; 01:30 Follow up: Response: No adverse reaction lp1 01:18 Drug: NS 0.9% 750 ml Route: IV; Rate: 1 bolus; Site: right antecubital; lp1 01:45 Follow up: IV Status: Infusion continued upon transfer lp1 01:18 Drug: fentaNYL (PF) 75 mcg {Note: RASS 2.} Route: IVP; Site: right antecubital; lp1 01:30 Follow up: Response: No adverse reaction; Marked relief of symptoms lp1 01:21 CANCELLED (Patient intubated): PlaVIX 300 mg PO once lp1 Disposition: 06/25 23:04 Critical Care:. gs Disposition: 06/26/19 00:47 Transfer ordered to [facility]. Diagnosis are ST elevation (STEMI) myocardial infarction of inferior wall, Acute respiratory failure. - Reason for transfer: Higher level of care. - Accepting physician is kaylene. - Condition is Stable. - Problem is new. - Symptoms are unchanged. Critical care time excluding procedures: 23:04 Critical care time: Bedside Care: 15 minutes, Consultation: 10 minutes, Family gs Intervention: 10 minutes. Total time: 35 minutes Signatures: Dispatcher [employer] Pamella Rodriguez RN RN Jessica Richards RN RN [facility] Margie Goldstein RN RN [facility] Bonnie Stringer RN RN ea Starr, Gregory, MD MD Bonnie Stringer RN, ea Corrections: (The following items were deleted from the chart) 22:59 22:42 SOLU-Medrol 80 mg IVP once ordered. gs lp1 23:17 23:07 Hospitalization Ordered by Alvaro Del Toro MD for Inpatient Admission. Preliminary mw diagnosis is Acute respiratory distress syndrome. Bed requested for Intensive Care Unit. Status is Inpatient Admission. Condition is Stable. Problem is an acute exacerbation. Symptoms have improved. UTI on Admission? No. gs 06/26 00:46 06/25 23:17 06/25/2019 23:07 Hospitalization Ordered by Alvaro Del Toro MD for Inpatient gs Admission. Preliminary diagnosis is Acute respiratory distress syndrome. Bed requested for Intensive Care Unit. Status is Inpatient Admission. Condition is Stable. Problem is an acute exacerbation. Symptoms have improved. UTI on Admission? No. mw 06/26 00:47 00:47 06/26/2019 00:47 Transfer ordered to [facility]. Diagnosis is ST elevation (STEMI) myocardial infarction of inferior wall. Reason for transfer: Higher level of care. Accepting physician is kaylene. Condition is Stable. Problem is new. Symptoms are unchanged. gs 01:21 00:40 PlaVIX 300 mg PO once ordered. gs lp1 02:32 00:47 06/26/2019 00:47 Transfer ordered to [facility]. Diagnosis is lp1 ST elevation (STEMI) myocardial infarction of inferior wall; Acute respiratory failure. Reason for transfer: Higher level of care. Accepting physician is kaylene. Condition is Stable. Problem is new. Symptoms are unchanged.
[2019-06-25] MEDS ORDERED: ACETAMINOPHEN 500 MG TAB PO PRN (23:12)
[2019-06-25] MEDS ORDERED: MORPHINE 4 MG/ML SYR IV PRN (23:12)
[2019-06-25] MEDS ORDERED: ONDANSETRON 4 MG/2 ML VIAL IV PRN (23:12)
[2019-06-25 23:18] LABS: Absolute Lymphocytes (CBC) 0.5 K/uL (0.7-4.9); Basophils % 0.2 % (0-1.3); Hematocrit 51.3 % (36.0-45.0); Lymphocytes % 5.1 % (15.3-44.8); MPV 8.3 fL (7.6-11.3); RBC Red Blood Cell Count 5.48 M/uL (3.86-4.86)
[2019-06-25] MEDS ORDERED: NA CHLORIDE 0.9% 1,000 ML IV SCH (23:45)
[2019-06-26] MEDS ORDERED: METHYLPREDNISOLONE 125 MG INJ IV SCH
[2019-06-26] MEDS ORDERED: RSI MEDICATION KIT IV ONE (00:17)
[2019-06-26] MEDS ORDERED: NA CHLORIDE 0.9% 2,000 ML ONE (00:22)
[2019-06-26] MEDS ORDERED: PROPOFOL 1,000 MG/100 ML VIAL IV ONE (00:37)
[2019-06-26] MEDS ORDERED: ASPIRIN 600 MG/SUPP PR ONE (00:46)
[2019-06-26 00:55] LABS: Arterial Blood Carboxyhemoglob 3.5 % (0-1.5); Blood Gas Oxyhemoglobin 92.4 % (94-97); Blood O2 Saturation 96.9 % (92-98.5)
[2019-06-26 00:58] LABS: Blood Morphology Comment NOT SEEN (NOT SEEN); Platelet Estimate ADEQ
[2019-06-26] MEDS ORDERED: HEPARIN 5000 UNIT/ML 1 ML VIAL ONE (00:58)
[2019-06-26] MEDS ORDERED: TENECTEPLASE 50 MG/10 ML VIAL IV ONE (00:59)
[2019-06-26] MEDS ORDERED: HEPARIN/D5W 25,000 UNIT/500 ML BAG IV ONE (00:59)
[2019-06-26] MEDS ORDERED: FENTANYL CITR 100 MCG/2 ML ONE (01:18)
[2019-06-26] MEDS ORDERED: IPRATROPIUM BROM 0.5MG/2.5ML NEB SCH (02:00)
[2019-06-26] MEDS ORDERED: ALBUTEROL 2.5 MG/3 ML NEB SOL NEB SCH (02:00)
[2019-06-26 02:53] VITALS: TEMP 98
[2019-06-26 03:27] VITALS: O2SAT 100
[2019-06-26 03:37] VITALS: BP 95/62
--- NOTE | 2019-06-26 07:19 | EKG ---
Test Date: 2019-06-25 Test Time: 21:53:42 Spinner Tender: VENESSA MEASUREMENT RESULTS: Intervals: Rate: 105 MN: 158 QRSD: 124 QT: 362 QTc: 478 [place]: P: 74 MN: 158 QRS: 142 T: 62 INTERPRETIVE STATEMENTS: Sinus tachycardia Right axis deviation Right bundle branch block Abnormal ECG Compared to ECG 11/11/2018 17:36:01 Right-axis deviation now present Atrial fibrillation no longer present Electronically Signed On 06-26-19 07:19:13 CDT by Niranjan Fajardo
--- NOTE | 2019-06-26 08:24 | RAD REPORT ---
EXAM DESCRIPTION: Helene Single View06/25/2019 10:31 pm CLINICAL HISTORY: Shortness breath COMPARISON: October 2018 FINDINGS: Mild bilateral interstitial lung opacities probably are mostly if not all chronic Lungs are hyperaerated The lungs appear clear of acute infiltrate. The heart is mildly enlarged
--- NOTE | 2019-06-26 08:25 | RAD REPORT ---
EXAM DESCRIPTION: Helene Single View06/26/2019 2:08 am CLINICAL HISTORY: Device placement endotracheal tube placement COMPARISON: June 25 FINDINGS: An endotracheal tube has been inserted with its tip well above the esteban. Nasogastric tube is been inserted with its tip in stomach No other change
--- NOTE | 2019-06-26 15:35 | EKG ---
Test Date: 2019-06-26 Test Time: 00:09:08 Lead Pressman [employer] Printing: AMITA MEASUREMENT RESULTS: Intervals: Rate: 80 CT: 168 QRSD: 120 QT: 446 QTc: 514 [place]: P: CT: 168 QRS: 117 T: 90 INTERPRETIVE STATEMENTS: Sinus rhythm with marked sinus arrhythmia Inferolateral injury pattern ACUTE ND / STEMI Consider right ventricular involvement in acute inferior infarct Abnormal ECG Compared to ECG 06/25/2019 21:53:42 Myocardial infarct finding now present Sinus tachycardia no longer present Right-axis deviation no longer present Right bundle-branch block no longer present Electronically Signed On 06-26-19 15:34:57 CDT by Niranjan Fajardo
== END 2019-06-26 02:32 | disposition short-term general hospital (02) ==
LOC: ER 21:49 → UNDOADMIN 23:36 → 3RD-ICU 23:36
PROC: 0BH17EZ Insertion of Endotracheal Airway into Trachea, Via Natural or Artificial Opening (ICD-10-PCS; principal; 2019-06-26)
PROC: 5A1935Z Respiratory Ventilation, Less than 24 Consecutive Hours (ICD-10-PCS; 2019-06-26)
DX: I21.19 ST elevation (STEMI) myocardial infarction involving other coronary artery of inferior wall (principal); I10 Essential (primary) hypertension; I48.91 Unspecified atrial fibrillation; J44.9 Chronic obstructive pulmonary disease, unspecified; Z79.82 Long term (current) use of aspirin; Z88.8 Allergy status to other drugs, medicaments and biological substances
CPT/HCPCS: 92977; 93005 ×2; 85025; 80048; 36415; 83735; 85610; 80076; 84484; 83880; 71045 ×2; 94640; 82805 ×2; 94660; 31500 ×2; 51702; 99291; 99292; 94002; J1940 ×2; J0330; J1644; J2704; J3101; J3010; J7030

== ENCOUNTER 2019-07-26 10:10 | Inpatient (IN) | payer OTHER ==
--- NOTE | 2019-07-26 11:11 | RAD REPORT ---
EXAM DESCRIPTION: CT - Stone Protocol - 07/26/2019 10:45 am CLINICAL HISTORY: Abdominal pain. Lower abdominal pain. Urinary frequency COMPARISON: None. TECHNIQUE: Computed axial tomography of the abdomen pelvis was obtained without oral or IV contrast. Lack of IV and oral contrast limits evaluation of solid organs, bowel, and vessels. Coronal reformat margoth images were obtained and reviewed. All CT scans are performed using dose optimization technique as appropriate and may include automated exposure control or mA/KV adjustment according to patient size. FINDINGS: Tiny bilateral renal calculi. No hydronephrosis. . An ureteral calculus is not noted. A bl adder calculus is not present. Mild bibasilar atelectasis with pleural thickening. Abdominal aorta has an AP diameter 3.4 centimeters. Left renal stent. Iliac stents 1 The liver, spleen, pancreas and right adrenal appear grossly normal. A small left adrenal adenoma There is no evidence of diverticulitis. A hysterectomy IMPRESSION: Tiny bilateral nonobstructing renal calculi 3.4 centimeter abdominal aortic aneurysm
--- NOTE | 2019-07-26 11:14 | RAD REPORT ---
EXAM DESCRIPTION: RAD - Chest Single View - 07/26/2019 10:41 am CLINICAL HISTORY: COUGH Chest pain. COMPARISON: Chest Single View dated 06/26/2019; Chest Single View dated 06/25/2019; Chest Single View dated 11/13/2018; Chest Pa And Lat (2 Views) dated 11/11/2018; Stone Protocol dated 07/26/2019 FINDINGS: Portable technique limits examination quality. Emphysematous changes are present with ill-defined linear infiltrate in the right lung base mild like ly representing atelectasis. The heart is moderately enlarged in size. No displaced fractures.
[2019-07-26 11:19] LABS: Absolute Lymphocytes (CBC) 0.7 K/uL (0.7-4.9); Basophils % 0.7 % (0-1.3); Hematocrit 25.5 % (36.0-45.0); Lymphocytes % 9.6 % (15.3-44.8); MPV 10.2 fL (7.6-11.3); RBC Red Blood Cell Count 2.78 M/uL (3.86-4.86)
[2019-07-26 11:20] LABS: Protime INR 1.49
--- NOTE | 2019-07-26 11:36 | EKG ---
Test Date: 2019-07-26 Test Time: 10:32:37 Systems Support Engineer: LELAND MEASUREMENT RESULTS: Intervals: Rate: 63 OK: 158 QRSD: 134 QT: 418 QTc: 427 [place]: P: 109 OK: 158 QRS: 58 T: -48 INTERPRETIVE STATEMENTS: Normal sinus rhythm Right bundle branch block T wave abnormality, consider inferior ischemia Abnormal ECG Compared to ECG 06/26/2019 00:09:08 Right bundle-branch block now present T-wave abnormality now present Possible ischemia now present Sinus arrhythmia no longer present Myocardial infarct finding no longer present Electronically Signed On 07-26-19 11:36:05 CDT by Niranjan Fajardo
[2019-07-26 11:41] LABS: Albumin 2.1 g/dL (3.4-5.0); Bilirubin Direct 0.1 mg/dL (0-0.2); Bilirubin Total 0.4 mg/dL (0.2-1.0); Magnesium 2.4 mg/dL (1.8-2.4); Potassium 4.3 mmol/L (3.5-5.1); Protein, Total 6.6 g/dL (6.4-8.2); Troponin (Emerg Dept Use Only) 0.09 ng/mL (0.0-0.045)
--- NOTE | 2019-07-26 12:00 | ER ---
Nurse's Notes [facility] Name: Cindi Mccallum Age: 68 yrs Sex: Female : 1950 Arrival Date: 07/26/2019 Time: 10:12 Bed 7 Private MD: Diagnosis: End stage renal disease;Unspecified combined systolic (congestive) and diastolic (congestive) heart failure;Anemia, unspecified Presentation: 07/26 10:16 Presenting complaint: Patient states: Dr. ramirez said her kidneys are not working, she tw2 was in [facility] 2 weeks ago and in pain. Transition of care: patient was not received from another setting of care. Onset of symptoms was July 26, 2019. Risk Assessment: Do you want to hurt yourself or someone else? Patient reports no desire to harm self or others. Initial Sepsis Screen: Does the patient meet any 2 criteria? No. Patient's initial sepsis screen is negative. Does the patient have a suspected source of infection? No. Patient's initial sepsis screen is negative. Care prior to arrival: None. pt is on o2 at 3l nc. 10:16 Method Of Arrival: Wheelchair tw2 10:16 Acuity: PRATIK 3 tw2 Triage Assessment: 10:18 General: Appears uncomfortable, Behavior is calm, cooperative, appropriate for age. tw2 Pain: Complains of pain in back. Historical: - Allergies: 10:21 clopidogrel bisulfate; tw2 - Home Meds: 10:21 Metoprolol Tartrate Oral [Active]; hydralazine 25 mg Oral tab 1 tab 3 times a day tw2 [Active]; Eliquis 2.5 mg oral tab 1 tab 2 times per day [Active]; amlodipine 5 mg tab 1 tab once daily [Active]; atorvastatin 40 mg oral tab 1 tab once daily [Active]; carvedilol 12.5 mg oral tab 1 tab 2 times per day [Active]; isosorbide dinitrate 10 mg oral tab 1 tab [Active]; amiodarone 200 mg Oral tab 1 tab once daily [Active]; Januvia 25 mg oral tab daily [Active]; prednisone 10 mg Oral tab once daily [Active]; famotidine 20 mg Oral tab 1 tab every 6 hours [Active]; Spiriva with HandiHaler 18 mcg inhalation CpDv 1 cap once daily [Active]; furosemide 40 mg Oral tab 1 tab once daily [Active]; - PMHx: 10:21 Atrial Fib; Hypertension; COPD; tw2 - PSHx: 10:21 Appendectomy; Hysterectomy; Heart stents; tw2 - Immunization history:: Adult Immunizations. - Social history:: Smoking status: . - Ebola Screening: : Patient denies travel to an Ebola-affected area in the 21 days before illness onset. - Family history:: not pertinent. Screenin:36 Abuse screen: Denies threats or abuse. Denies injuries from another. Nutritional aj1 screening: No deficits noted. Tuberculosis screening: No symptoms or risk factors identified. 14:02 Fall Risk No fall in past 12 months (0 pts). Secondary diagnosis (15 points) confusion. aj1 IV access (20 points). Ambulatory Aid- None/Bed Rest/Nurse Assist (0 pts). Gait- Normal/Bed Rest/Wheelchair (0 pts) Mental Status- Overestimates/Forgets Limitations (15 pts.). Total Massey Fall Scale indicates High Risk Score (45 or more points). Side Rails Up X 2 Frequent Obs/Assessments Occuring Family Present and informed to notify staff if the need to leave the bedside As available patient and family educated on Fall Prevention Program and Strategies. Assessment: 10:36 General: Appears in no apparent distress. uncomfortable, Behavior is calm, cooperative, aj1 appropriate for age. Pain: Complains of pain in back. Neuro: Level of Consciousness is awake, alert, obeys commands, Oriented to person, place, time, situation. Cardiovascular: Denies chest pain, Patient's skin is warm and dry. Respiratory: Airway is patent Respiratory effort is even, unlabored, Respiratory pattern is regular, symmetrical. GI: No signs and/or symptoms were reported involving the gastrointestinal system. : No signs and/or symptoms were reported regarding the genitourinary system. EENT: No signs and/or symptoms were reported regarding the EENT system. Derm: Skin is pale. Musculoskeletal: No signs and/or symptoms reported regarding the musculoskeletal system. Circulation, motion, and sensation intact. 10:41 Reassessment: Patient taken to CT via stretcher. aj1 11:30 Reassessment: Patient appears in no apparent distress at this time. No changes from aj1 previously documented assessment. Patient and/or family updated on plan of care and expected duration. Pain level reassessed. Patient is alert, oriented x 3, equal unlabored respirations, skin warm/dry/pink. 12:30 Reassessment: Patient and/or family updated on plan of care and expected duration. Pain aj1 level reassessed. General: Appears in no apparent distress. comfortable, Behavior is calm, cooperative, appropriate for age. Neuro: Level of Consciousness is awake, alert, obeys commands, Oriented to person, place, time, situation. Cardiovascular: Patient's skin is warm and dry. Respiratory: Airway is patent Respiratory effort is even, unlabored, Respiratory pattern is regular, symmetrical. Derm: Skin is pale. Musculoskeletal: No signs and/or symptoms reported regarding the musculoskeletal system. Circulation, motion, and sensation intact. 13:38 Reassessment: pt and pt family informed that the senior ux designer is requesting sg an ECHO be performed while pt remains in the ED, pt family stated understanding, pt to have ECHO then go to assigned bed. Vital Signs: 10:17 BP 131 / 63; Pulse 64; Resp 17; Temp 97.7(TE); Pulse Ox 95% on 3 lpm NC; Weight 65.32 tw2 kg (R); Height 5 ft. 5 in. (165.10 cm); Pain 8/10; 11:15 BP 143 / 51; Pulse 64; Resp 18; Pulse Ox 99% on R/A; aj1 12:15 BP 148 / 56; Pulse 64; Resp 18; Pulse Ox 98% on R/A; aj1 12:45 BP 145 / 56; Pulse 66; Resp 17; Pulse Ox 95% on 3 lpm NC; sg 13:45 BP 140 / 55; Pulse 64; Resp 18; Pulse Ox 98% on R/A; aj1 14:01 BP 144 / 59; Pulse 67; Resp 18; Pulse Ox 98% on R/A; aj1 10:17 Body Mass Index 23.96 (65.32 kg, 165.10 cm) tw2 ED Course: 10:12 Patient arrived in ED. mr 10:17 Triage completed. tw2 10:18 Arm band placed on. tw2 10:22 Daquan Fink, JUAN DIEGO is Primary Nurse. sg 10:26 Ronn Vidal MD is Attending Physician. treva 10:[address] sw 10:36 Patient has correct armband on for positive identification. aj1 10:36 No provider procedures requiring assistance completed. aj1 10:39 XRAY Chest (1 view) In Process Unspecified. EDMS 10:42 CT completed. Patient tolerated procedure well. Patient moved to CT via stretcher. 10:44 EKG done, by biodiesel processing technician. reviewed by Ronn Vidal MD. sm3 10:45 CT Stone Protocol In Process Unspecified. EDMS 11:01 Inserted saline lock: 22 gauge in right hand, using aseptic technique. Blood collected. aj1 11:59 Shady Longoria DO is Hospitalizing Provider. [facility] 13:20 Nagel cath inserted, using sterile technique, 16 Fr., returned clear yellow urine. aj1 Patient tolerated well. 14:01 Patient admitted, IV remains in place. aj1 14:02 Report given to JUAN DIEGO Muñoz on 4th floor. aj1 Administered Medications: 11:00 Drug: NS 0.9% 1000 ml Route: IV; Rate: 125 ml/hr; Site: right hand; aj1 14:03 Follow up: IV Status: Completed infusion; IV Intake: 375ml aj1 Intake: 14:03 IV: 375ml; Total: 375ml. aj1 Outcome: 12:00 Decision to Hospitalize by Provider. [facility] 14:02 Admitted to Tele accompanied by tech, via wheelchair, with chart. aj1 14:02 Condition: stable 14:02 Discharge instructions given to family, Instructed on the need for admit, Demonstrated understanding of instructions. 14:07 Patient left the ED. aj1 Signatures: Dispatcher [employer] Francy York, JUAN DIEGO ADAMSON aj1 Daquan Fink RN RN sg Anderson, Corey, MD MD cha Rivera, Mary mr KrisJen Tara, RN RN [email or web address] Shilpa Chen 3
--- NOTE | 2019-07-26 12:01 | EDPHYS ---
Physician Documentation [facility] Name: Cindi Mccallum Age: 68 yrs Sex: Female : 1950 Arrival Date: 07/26/2019 Time: 10:12 Bed 7 Private MD: ED Physician Ronn Vidal HPI: 07/26 11:47 This 68 yrs old Female presents to ER via Wheelchair with complaints of treva weakness and worsening renal failure. 11:47 The patient presents with abdominal pain in the upper abdomen, in the lower abdomen. treva Onset: The symptoms/episode began/occurred 2 day(s) ago. weakness. Onset: The symptoms/episode began/occurred 2 day(s) ago. The symptoms do not radiate. Associated signs and symptoms: none. Severity of pain: At its worst the pain was mild in the emergency department the pain is unchanged. Historical: - Allergies: 10:21 clopidogrel bisulfate; tw2 - Home Meds: 10:21 Metoprolol Tartrate Oral [Active]; hydralazine 25 mg Oral tab 1 tab 3 times a day tw2 [Active]; Eliquis 2.5 mg oral tab 1 tab 2 times per day [Active]; amlodipine 5 mg tab 1 tab once daily [Active]; atorvastatin 40 mg oral tab 1 tab once daily [Active]; carvedilol 12.5 mg oral tab 1 tab 2 times per day [Active]; isosorbide dinitrate 10 mg oral tab 1 tab [Active]; amiodarone 200 mg Oral tab 1 tab once daily [Active]; Januvia 25 mg oral tab daily [Active]; prednisone 10 mg Oral tab once daily [Active]; famotidine 20 mg Oral tab 1 tab every 6 hours [Active]; Spiriva with HandiHaler 18 mcg inhalation CpDv 1 cap once daily [Active]; furosemide 40 mg Oral tab 1 tab once daily [Active]; - PMHx: 10:21 Atrial Fib; Hypertension; COPD; tw2 - PSHx: 10:21 Appendectomy; Hysterectomy; Heart stents; tw2 - Immunization history:: Adult Immunizations. - Social history:: Smoking status: . - Ebola Screening: : Patient denies travel to an Ebola-affected area in the 21 days before illness onset. - Family history:: not pertinent. ROS: 11:47 Constitutional: Negative for fever, chills, and weight loss, Eyes: Negative for injury, treva pain, redness, and discharge, ENT: Negative for injury, pain, and discharge, Neck: Negative for injury, pain, and swelling, Cardiovascular: Negative for chest pain, palpitations, and edema, Respiratory: Negative for shortness of breath, cough, wheezing, and pleuritic chest pain, Back: Negative for injury and pain, : Negative for injury, bleeding, discharge, and swelling, MS/Extremity: Negative for injury and deformity, Neuro: Negative for headache, weakness, numbness, tingling, and seizure, Psych: Negative for depression, anxiety, suicide ideation, homicidal ideation, and hallucinations, Allergy/Immunology: Negative for hives, rash, and allergies, Endocrine: Negative for neck swelling, polydipsia, polyuria, polyphagia, and marked weight changes, Hematologic/Lymphatic: Negative for swollen nodes, abnormal bleeding, and unusual bruising. 11:47 Abdomen/GI: Positive for abdominal pain. 11:47 Skin: Positive for pallor. Exam: 11:47 Constitutional: This is a well developed, well nourished patient who is awake, alert, treva and in no acute distress. Head/Face: Normocephalic, atraumatic. Eyes: Pupils equal round and reactive to light, extra-ocular motions intact. Lids and lashes normal. Conjunctiva and sclera are non-icteric and not injected. Cornea within normal limits. Periorbital areas with no swelling, redness, or edema. ENT: Nares patent. No nasal discharge, no septal abnormalities noted. Tympanic membranes are normal and external auditory canals are clear. Oropharynx with no redness, swelling, or masses, exudates, or evidence of obstruction, uvula midline. Mucous membranes moist. Neck: Trachea midline, no thyromegaly or masses palpated, and no cervical lymphadenopathy. Supple, full range of motion without nuchal rigidity, or vertebral point tenderness. No Meningismus. Chest/axilla: Normal chest wall appearance and motion. Nontender with no deformity. No lesions are appreciated. Cardiovascular: Regular rate and rhythm with a normal S1 and S2. No gallops, murmurs, or rubs. Normal PMI, no JVD. No pulse deficits. Respiratory: Lungs have equal breath sounds bilaterally, clear to auscultation and percussion. No rales, rhonchi or wheezes noted. No increased work of breathing, no retractions or nasal flaring. Back: No spinal tenderness. No costovertebral tenderness. Full range of motion. Female : Normal external genitalia. MS/ Extremity: Pulses equal, no cyanosis. Neurovascular intact. Full, normal range of motion. Neuro: Awake and alert, GCS 15, oriented to person, place, time, and situation. Cranial nerves II-XII grossly intact. Motor strength 5/5 in all extremities. Sensory grossly intact. Cerebellar exam normal. Normal gait. Psych: Awake, alert, with orientation to person, place and time. Behavior, mood, and affect are within normal limits. 11:47 Abdomen/GI: Inspection: distension, Bowel sounds: normal, Palpation: mild abdominal tenderness, in all quadrants, Liver: no appreciated palpable abnormalities, Hernia: not appreciated. Vital Signs: 10:17 BP 131 / 63; Pulse 64; Resp 17; Temp 97.7(TE); Pulse Ox 95% on 3 lpm NC; Weight 65.32 tw2 kg (R); Height 5 ft. 5 in. (165.10 cm); Pain 8/10; 11:15 BP 143 / 51; Pulse 64; Resp 18; Pulse Ox 99% on R/A; aj1 12:15 BP 148 / 56; Pulse 64; Resp 18; Pulse Ox 98% on R/A; aj1 12:45 BP 145 / 56; Pulse 66; Resp 17; Pulse Ox 95% on 3 lpm NC; sg 13:45 BP 140 / 55; Pulse 64; Resp 18; Pulse Ox 98% on R/A; aj1 14:01 BP 144 / 59; Pulse 67; Resp 18; Pulse Ox 98% on R/A; aj1 10:17 Body Mass Index 23.96 (65.32 kg, 165.10 cm) tw2 MDM: 10:26 Patient medically screened. [facility] 11:53 Data reviewed: vital signs, nurses notes, lab test result(s), EKG, radiologic studies, [facility] CT scan, plain films. 07/26 10:27 Order name: Basic Metabolic Panel; Complete Time: 11:57 [facility] 07/26 10:27 Order name: CBC with Diff; Complete Time: 11:45 [facility] 07/26 10:27 Order name: LFT's; Complete Time: 11:57 [facility] 07/26 10:27 Order name: Magnesium; Complete Time: 11:57 [facility] 07/26 10:27 Order name: NT PRO-BNP; Complete Time: 11:57 [facility] 07/26 10:27 Order name: PT-INR; Complete Time: 11:45 [facility] 07/26 10:27 Order name: Troponin (emerg Dept Use Only); Complete Time: 11:57 [facility] 07/26 10:27 Order name: Urine Culture [facility] 07/26 10:27 Order name: Lipase; Complete Time: 11:57 [facility] 07/26 12:47 Order name: HCV w/reflex PCR [facility] 07/26 12:47 Order name: Hepatitis B Surface Antibody [facility] 07/26 12:47 Order name: Hep B Surface AG w/ Confirm [facility] 07/26 12:47 Order name: Hep B Core Ab, Tot/reflex IgM [facility] 07/26 12:51 Order name: Immunofixation Electrophoresis [facility] 07/26 10:27 Order name: XRAY Chest (1 view); Complete Time: 11:45 [facility] 07/26 10:27 Order name: EKG; Complete Time: 10:29 [facility] 07/26 10:27 Order name: Cardiac monitoring; Complete Time: 10:35 [facility] 07/26 10:27 Order name: EKG - Nurse/Tech; Complete Time: 11:33 [facility] 07/26 10:27 Order name: IV Saline Lock; Complete Time: 11:33 [facility] 07/26 10:27 Order name: Labs collected and sent; Complete Time: 11:33 [facility] 07/26 10:27 Order name: O2 Per Protocol; Complete Time: 10:35 [facility] 07/26 10:27 Order name: CT Stone Protocol; Complete Time: 11:45 [facility] 07/26 12:51 Order name: Renal Ultrasound-Complete [facility] 07/26 12:51 Order name: Protein Electrophoresis, 24hr [facility] 07/26 12:51 Order name: C-ANCA Anti-Proteinase 3 [facility] 07/26 12:51 Order name: P-ANCA Anti-Myeloperoxidase Ab [facility] 07/26 12:51 Order name: Glomerular Basement Membrane [facility] 07/26 13:00 Order name: Echo with Doppler [facility] 07/26 13:34 Order name: Urine Dipstick--Ancillary (enter results) 07/26 10:27 Order name: O2 Sat Monitoring; Complete Time: 10:35 [facility] 07/26 10:27 Order name: Urine Dipstick-Ancillary (obtain specimen); Complete Time: 13:44 [facility] 07/26 11:46 Order name: Nagel; Complete Time: 13:20 [facility] Administered Medications: 11:00 Drug: NS 0.9% 1000 ml Route: IV; Rate: 125 ml/hr; Site: right hand; [facility] 14:03 Follow up: IV Status: Completed infusion; IV Intake: 375ml [facility] Disposition: 07/26/19 12:00 Hospitalization ordered by Shady Longoria for Inpatient Admission. Preliminary diagnosis are End stage renal disease, Unspecified combined systolic (congestive) and diastolic (congestive) heart failure, Anemia, unspecified. - Bed requested for Telemetry/MedSurg (Inpatient). - Status is Inpatient Admission. [facility] - Condition is Fair. - Problem is new. - Symptoms have improved. UTI on Admission? No Signatures: Dispatcher [employer] EDMS Gwen Salguero Angela, RN RN aj1 Ronn Vidal MD MD cha Wise, Tara, RN RN tw2 Corrections: (The following items were deleted from the chart) 13: 12:00 Hospitalization Ordered by Shady Longoria DO for Inpatient Admission. Preliminary bd diagnosis is End stage renal disease; Unspecified combined systolic (congestive) and diastolic (congestive) heart failure; Anemia, unspecified. Bed requested for Telemetry/MedSurg (Inpatient). Status is Inpatient Admission. Condition is Fair. Problem is new. Symptoms have improved. UTI on Admission? No. [facility] 14:07 13:09 07/26/2019 12:00 Hospitalization Ordered by Shady Longoria DO for Inpatient [facility] Admission. Preliminary diagnosis is End stage renal disease; Unspecified combined systolic (congestive) and diastolic (congestive) heart failure; Anemia, unspecified. Bed requested for Telemetry/MedSurg (Inpatient). Status is Inpatient Admission. Condition is Fair. Problem is new. Symptoms have improved. UTI on Admission? No. bd
--- NOTE | 2019-07-26 13:57 | P.HP ---
Certification for Inpatient Patient admitted to: Inpatient With expected LOS: >2 Midnights Patient will require the following post-hospital care: Nursing Home Practitioner: I am a practitioner with admitting privileges, knowledge of patient current condition, hospital course, and medical plan of care. Services: Services provided to patient in accordance with Admission requirements found in Title 42 Section 412.3 of the Code of Federal Regulations Patient History Date of Service: 07/26/19 Primary Care Provider: Dr. Mahan; Cardiology-Dr. Fajardo Reason for admission: Abnormal lab History of Present Illness: 68-year-old female with history of atrial fibrillation on chronic anti coagulation therapy, CAD with recent stent, hypertension, COPD on chronic oxygen, hyperlipidemia, and diabetes mellitus type 2. Patient was seen last week by her PCP and game attendant. Patient had been hospitalized in May in [place] for an acute ME. She had a heart catheterization done at that time. She reports 1 stent was placed. She also reported abnormal function of her kidneys. She had lab drawn a on Friday. She saw her game attendant today. Worsening renal function was noted. She was sent to the ER for further evaluation. Patient reports with increased fatigue. She denies any chest pain, shortness of breath. She reports no history of kidney disease but lab shows chronic kidney disease. In the ER patient evaluated. Initial blood pressure 148/56. Pulse 68. On lab white count 7.3, hemoglobin 8.4. Platelet count of 231. Sodium 136 mom potassium 4.3. BUN of 19, creatinine 10 GFR 4. Glucose within normal range. Troponin 0.09. BNP elevated. Chest x-ray shows no evidence of infection. COPD changes noted abdomen shows no obstruction process to the kidneys. 3.4 cm abdominal aortic aneurysm noted. Patient was admitted for further evaluation and treatment. When I saw the patient ER, she appeared stable. Nephrology, cardiology and Surgery have been consulted. Her last dose of Eliquis and Brilinta was last night. Allergies clopidogrel bisulfate [From Plavix] Allergy (Verified 05/04/15 13:42) increased b/p and purple toes Home Medications: Aspirin 81 mg PO DAILY 11/11/18 Budesonide/Formoterol Fumarate [Symbicort 160-4.5 Mcg Inhaler] 2 puff IH BID 30 Days hfa.aer.ad 11/14/18 Tiotropium Blanchard [Spiriva Respimat] 4 gm IH DAILY #1 mist.inhal 11/14/18 predniSONE [Prednisone*] 10 mg PO BID #20 tab 11/14/18 Apixaban [Eliquis] 5 mg PO BID #60 tablet 11/16/18 Sotalol HCl [Betapace*] 80 mg PO BID 6AM 6PM #60 tab 11/16/18 - Past Medical/Surgical History Diabetic: No -: HTN -: CAD with prior stent -: Chronic atrial fibrillation on chronic anti coagulation therapy -: Diabetes mellitus type 2 non insulin dependent -: Hyperlipidemia -: COPD on chronic oxygen/prednisone -: Cardiac stents -: Appendectomy -: Hysterectomy Psychosocial/ Personal History: Patient is lives at home. - Family History Family History: Reviewed- Non-Contributory - Social History Smoking Status: Former smoker Alcohol use: No CD- Drugs: No Caffeine use: Yes Place of Residence: Home Review of Systems General: Weakness, Malaise, As per HPI Eyes: Unremarkable ENT: Unremarkable Respiratory: Unremarkable Cardiovascular: Unremarkable Gastrointestinal: Unremarkable Genitourinary: Unremarkable Musculoskeletal: Unremarkable Integumentary: Unremarkable Neurological: Unremarkable Lymphatics: Unremarkable Physical Examination - Physical Exam General: Alert, In no apparent distress, Oriented x3, Cooperative HEENT: Atraumatic, Normocephalic, Mucous membr. moist/pink Neck: Supple, No Thyromegaly Respiratory: Clear to auscultation bilaterally, Normal air movement Cardiovascular: Normal pulses, Regular rate/rhythm Gastrointestinal: Normal bowel sounds, Soft and benign, Non-distended, No tenderness, No masses, No rebound, No guarding Musculoskeletal: No erythema, No tenderness, No warmth Integumentary: No tenderness/swelling, No erythema, No warmth, No cyanosis Neurological: Normal speech, Normal strength at 5/5 x4 extr, Normal tone, Normal affect - Studies Laboratory Data (last 24 hrs) 07/26/19 10:56: PT 17.3 H, INR 1.49 07/26/19 10:56: WBC 7.3, Hgb 8.4 L, Hct 25.5 L, Plt Count 231 07/26/19 10:56: Sodium 136, Potassium 4.3, BUN 98 H, Creatinine 10.20 H*, Glucose 109 H, Magnesium 2.4, Total Bilirubin 0.4, AST 16, ALT 14, Alkaline Phosphatase 74, Lipase 185 Assessment and Plan - Plan Impression: Acute on chronic renal failure stage 5 not on dialysis CAD with recent stent Chronic atrial fibrillation on chronic anti coagulation therapy Hypertension Hyperlipidemia Diabetes mellitus type 2 non insulin dependent COPD on chronic oxygen/prednisone Anemia of chronic disease Plan: Acute on chronic renal failure stage 5 not on dialysis: Patient will be admitted for further evaluation. Case discussed with nephrology. Plan is for dialysis. Surgery consulted for placement of temporary dialysis catheter. Renal function has declined since heart catheterization done June 26. Patient may require dialysis. Will hold Brilinta and Eliquis in preparation for dialysis catheter placement tomorrow. DVT prophylaxis-SCD. Will review and restart other home medication. Will consult cardiology for her cardiac issues. Patient will likely require skilled placement at discharge. Social work consulted. I will turn the service over to Dr. Morocho tomorrow. I will go over the plan of care with her. CAD with recent stent: Will monitor closely. Cardiology consulted. Hold Brilinta at this time in preparation for dialysis catheter placement. Chronic atrial fibrillation on chronic anti coagulation therapy: Will hold Eliquis at this time in preparation for dialysis catheter placement. Resume amiodarone. Will need to verify and restart home medication. Hypertension: Will need to verify and restart home medication. Hyperlipidemia: Restart and verify home medication. Diabetes mellitus type 2 non insulin dependent: Will provide sliding scale and monitor Accu-Cheks. COPD on chronic oxygen/prednisone: Continue with COPD medication. Maintain oxygen above 93%. Will provide prednisone. Anemia of chronic disease: Will monitor closely. Will check iron and B12 studies. Patient may require transfusion if hemoglobin below 7.5. Discharge Plan: Other (shelter facility) Plan to discharge in: Greater than 2 days - Advance Directives Does patient have a Living Will: No Does patient have a Durable POA for Healthcare: No - Code Status/Comfort Care Code Status Assessed: Yes (Patient is full code) Time Spent Managing Pts Care (In Minutes): 55
--- NOTE | 2019-07-26 13:58 | RAD REPORT ---
EXAM DESCRIPTION: US - Renal Ultrasound-Complete - 07/26/2019 1:38 pm CLINICAL HISTORY: manoj Flank pain, kidney injury COMPARISON: Stone Protocol dated 07/26/2019 FINDINGS: Increased echogenicity is present involving both kidneys, mild. The right kidney measures 8.6 x 4.1 x 3.9 cm. No hydronephrosis, focal mass or perinephric fluid. The left kidney measures 11.2 x 4.8 x 4.3 cm. No hydronephrosis, focal mass or perinephric fluid. The urinary bladder is incompletely distended without gross abnormality seen. IMPRESSION: Mild increase in echogenicity of both kidneys suggests underlying medical renal disease.
[2019-07-26 14:26] LABS: Urine Blood 3+ (NEG); Urine Glucose NEGATIVE (NEG); Urine Protein 2+ (NEG); Urine Specific Gravity 1.015 (1.005-1.030)
[2019-07-26] MEDS ORDERED: ONDANSETRON 4 MG/2 ML VIAL IV PRN (15:13)
[2019-07-26] MEDS ORDERED: IPRATROPIUM BROM 0.5MG/2.5ML NEB PRN (15:13)
[2019-07-26] MEDS ORDERED: ACETAMINOPHEN 500 MG TAB PO PRN (15:13)
--- NOTE | 2019-07-26 15:53 | ECHO ---
HEIGHT: 5 ft 5 in WEIGHT: 144 lb 0 oz DATE OF STUDY: 07/26/[address]: Niranjan Fajardo MD 2-DIMENSIONAL: YES M.MODE: YES DOPPLER: YES COLOR FLOW: YES TDS: NO PORTABLE: YES DEFINITY: NO BUBBLE STUDY: NO DIAGNOSIS: CONGESTIVE HEART FAILURE, RECENT MYOCARDIAL INFARCTION CARDIAC HISTORY: CATHERIZATION: YES SURGERY: NO PROSTHETIC VALVE: NO PACEMAKER: NO MEASUREMENTS (cm) DIASTOLIC (NORMALS) SYSTOLIC (NORMALS) IVSd 1.2 (0.6-1.2) LA Diam (1.9-4.0) LVEF 55% LVIDd 5.0 (3.5-5.7) LVIDs 3.5 (2.0-3.5) %FS 29% LVPWd 1.2 (0.6-1.2) Ao Diam 2.3 (2.0-3.7) 2 DIMENSIONAL ASSESSMENT: RIGHT ATRIUM: NORMAL LEFT ATRIUM: DILATED RIGHT VENTRICLE: NORMAL LEFT VENTRICLE: LEFT VENTRICULAR HYPERTROPHY TRICUSPID VALVE: NORMAL MITRAL VALVE: MITRAL ANNULAR CALCIFICATION PULMONIC VALVE: NORMAL AORTIC VALVE: NORMAL PERICARDIAL EFFUSION: NONE AORTIC ROOT: NORMAL LEFT VENTRICULAR WALL MOTION: NORMAL. DOPPLER/COLOR FLOW: MILD TRICUSPID REGURGITATION. NORMAL RIGHT VENTRICULAR SYSTOLIC PRESSURE. MILD MITRAL REGURGITATION. COMMENTS: NORMAL LEFT VENTRICULAR EJECTION FRACTION. LEFT VENTRICULAR HYPERTROPHY. DILATED LEFT ATRIUM. MITRAL ANNULAR CALCIFICATION. MILD TRICUSPID REGURGITATION. MILD MITRAL REGURGITATION. TECHNOLOGIST: LISA SEVERINO
[2019-07-26] MEDS ORDERED: INSULIN -REGULAR HUMAN 50 UNIT/0.5 ML ML SQ SCH (16:30)
[2019-07-26 16:34] LABS: CKMB Creatine Kinase MB 1.1 ng/mL (0.3-3.6); Troponin I 0.08 ng/mL (0.0-0.045)
[2019-07-26 16:56] LABS: Ferritin 255.1 ng/mL (8-388)
[2019-07-26] MEDS ORDERED: CEFAZOLIN/SWI 1gm 1 GM/10 ML SYR IVP SCH (17:15)
--- NOTE | 2019-07-26 17:54 | CON ---
History Of Present Illness: Ms. Estrella is a 68. About a month ago, she had an acute inferior CT. [facility] [place] on [facility], underwent an emergency stent and procee ded to have numerous complications following that was atrial fibrillation, heart failure, renal failu re. She was discharged from the hospital to snf or long-term acute care, spent several week s there, then went home. She had a LifeVest on because her ejection fraction was in the 30s. I saw her in my office last week without much in the way of medical records, ordered some blood tests and a creatinine was over 8, repeated today over 10. Patient is not a hemodialysis patient yet and sarahi akhtar she needs to be considered for that by the Nephrology service. Patient is a lifelong heavy cigar ette smoker. She has underlying obstructive lung disease. She has had stents in other arteries in h er heart in the past, but the acute CT was late May this year. Outpatient Medications: Listed as hydralazine, Eliquis, amlodipine, atorvastatin, carvedilol, isosor bide dinitrate, amiodarone, Januvia, prednisone, famotidine, Spiriva, furosemide. She has also had a ppendectomy and hysterectomy. Physical Examination: General: She is alert, oriented, pleasant. She looks miserable, but not in respiratory distress. S he has just been feeling weak and tired and anorexic, not eating, losing weight for about 2 weeks. Vital Signs: Blood pressure 131/63, O2 saturation 98% on 2 L nasal cannula. She is 5 feet 5 inches tall, 65.3 kg. Lungs: Clear. Heart: Rhythm is unremarkable. Abdomen: Soft. Extremities: Revealed mild edema. Distal pulses palpable. Impression: The patient is probably uremic and probably needs to be considered for dialysis now. Matt muñiz has been on Eliquis. We want to hold that and by tomorrow morning, she would be stable enough to g et a dialysis catheter placed and begin dialysis. Her chest x-ray shows mild interstitial edema, so she probably needs to minimize oral intake until she get dialysis started . MATT/ERICL Voice ID: [id number] Report ID: [id number]
[2019-07-26] MEDS: CARVEDILOL 12.5 MG TAB PO SCH (18:03)
[2019-07-26] MEDS: INSULIN -REGULAR HUMAN 50 UNIT/0.5 ML ML SQ SCH (21:00)
[2019-07-26] MEDS: ATORVASTATIN 40 MG TAB PO SCH (22:08)
[2019-07-26] MEDS: predniSONE 10 MG TAB PO SCH (22:08)
[2019-07-27 01:18] LABS: CKMB Creatine Kinase MB < 1.0 ng/mL (0.3-3.6); Creatine Phosphokinase 15 U/L (26-192); Troponin I 0.09 ng/mL (0.0-0.045)
--- NOTE | 2019-07-27 02:52 | CON ---
Date of Consultation: 07/26/2019 Chief Complaint: Acute kidney injury on chronic kidney disease. History Of Present Illness: Severe nonoliguric acute kidney injury was found when patient was admitt ed to [facility] for acute coronary syndrome. She had elevated creatinine up to 7, but at th e end of hospitalization, creatinine level was slightly improving. Baseline creatinine level was 1.7 . Patient has nonoliguric urine output, although azotemia has worsened. Creatinine increased to 10. Patient is referred to the hospital for initiation of dialysis and placement of dialysis catheter. Patient has multiple medical problems including history of atrial fibrillation, on chronic anticoagu lation; coronary artery disease, status post stent; hypertension; COPD, on chronic oxygen; hyperlipid emia; diabetes mellitus type 2. Patient in May was hospitalized in [place] for acute myocardia l infarction. She had cardiac catheterization done at that time. She underwent stent placement for severe coronary artery disease. She was found to have worsening of the renal function, but later on, creatinine level had a trend for improvement and patient did not have electrolyte abnormalities. Sh e had nonoliguric urine output and was discharged to home and followup with Dr. Fajardo, her cardiolog ist, although on recent lab work, she was found to have worsening of the creatinine. Creatinine leve l was 10 and GFR of 4, sodium 136, potassium 4.3. Patient is referred for dialysis catheter. Chest x-ray did not show evidence of infection. Abdomen imaging did not show obstructive uropathy. There is 3.4 cm abdominal aortic aneurysm noted. Review of Systems: Constitutional: Denies fever, chills. Eyes: Denies vision changes. Ears, Nose, Mouth, and Throat: Denies sore throat, earache. Respiratory: Denies PND, orthopnea. Cardiovascular: Denies chest pain, palpitation. GI: Denies nausea, vomiting. : Denies dysuria, hematuria. Musculoskeletal: Denies gout, muscle aches. All other systems reviewed and all are negative. Past Medical History: Diabetes mellitus; hypertension; coronary artery disease, status post stent; h yperlipidemia; COPD; cardiac stents; appendectomy; hysterectomy. Family History: Noncontributory. No kidney disease in the family. Social History: Former smoker. Denies alcohol or illicit drugs. Physical Examination: General: Patient is awake, alert, follows commands. Eyes: Anicteric sclerae. EOMI. Ears, Nose, Mouth, and Throat: Oral mucosa moist. No pallor. Neck: Supple. No bruits. Lungs: Diminished breath sounds in the bases. Crackles present bilaterally. Heart: S1, S2. No pericardial friction rub. Abdomen: Soft, benign, nontender. Extremities: No edema. Laboratory Data: Sodium 136, potassium 4.3, BUN 98, creatinine 10.20, glucose 109. Magnesium 2.4. Hemoglobin 8.4, WBC 7.3, platelet count 231. INR 1.49, PT 17.3. Impression And Plan: 1.Acute on chronic kidney failure. Patient will start dialysis. Patient came to the hospital for p lacement of the dialysis catheter and to initiate dialysis. Patient has history of coronary artery d isease. She underwent stent placement. Likely, patient has contrast-induced nephropathy in setting of diabetic kidney disease and hypertensive kidney disease. Patient will be evaluated for monoclonal gammopathy of unknown significance. Vasculitis panel is ordered to rule out any evidence of seconda ry glomerulonephritis. 2.Patient will start IV fluids. Plan is to check renal ultrasound to rule out obstructive uropathy and urinary retention. 3.Patient will have dialysis catheter and dialysis will be done as soon as access is available. 4.Chronic obstructive pulmonary disease, respiratory failure. Continue O2 nasal cannula as needed. 5.Anemia of chronic disease. Pending iron studies and B12. Patient may benefit from ELIZABETH and IV iron infusion. Plan is to evaluate iron test. EB/MODL Voice ID: [id number] Report ID: [id number]
[2019-07-27 04:41] LABS: Absolute Lymphocytes (CBC) 0.6 K/uL (0.7-4.9); Basophils % 0.5 % (0-1.3); Hematocrit 22.3 % (36.0-45.0); Lymphocytes % 8.8 % (15.3-44.8); MPV 10.3 fL (7.6-11.3); RBC Red Blood Cell Count 2.43 M/uL (3.86-4.86)
[2019-07-27 05:08] LABS: Magnesium 2.2 mg/dL (1.8-2.4); Potassium 4.6 mmol/L (3.5-5.1)
[2019-07-27 05:09] LABS: Thyroid Stimulating Hormone 5.63 uIU/mL (0.360-3.740)
[2019-07-27 05:25] LABS: Blood Morphology Comment NOT SEEN (NOT SEEN); Platelet Estimate ADEQ; Urine White Blood Cell Casts OK
[2019-07-27] MEDS: CARVEDILOL 12.5 MG TAB PO SCH ×3 (05:42→18:00)
[2019-07-27] MEDS ORDERED: SUCCINYLCHOLINE 20 MG/ML (10 ML) IV ONE (06:51)
[2019-07-27] MEDS ORDERED: FENTANYL CITR 100 MCG/2 ML ONE (07:07)
[2019-07-27] MEDS ORDERED: PROPOFOL 200 MG/20 ML VIAL IV ONE ×2 (07:08→07:12)
[2019-07-27] MEDS ORDERED: LIDOCAINE 2% MPF 5 ML VIAL ONE (07:08)
[2019-07-27] MEDS ORDERED: HEPARIN 5000 UNIT/ML 1 ML VIAL ONE (07:10)
[2019-07-27] MEDS ORDERED: NS 0.9% VIAL 10 ML ONE (07:10)
[2019-07-27] MEDS ORDERED: LIDOCAINE 1% 20 ML MDV ONE (07:11)
[2019-07-27] MEDS ORDERED: NA CHLORIDE 0.9% 100 ML IV ONE (07:11)
[2019-07-27] MEDS ORDERED: NA CHLORIDE 0.9% 500 ML ONE (07:28)
[2019-07-27] MEDS ORDERED: CEFAZOLIN/SWI 1gm 1 GM/10 ML SYR ONE (07:28)
[2019-07-27] MEDS: INSULIN -REGULAR HUMAN 50 UNIT/0.5 ML ML SQ SCH ×4 (07:30→21:00)
--- NOTE | 2019-07-27 08:19 | P.OP ---
Preoperative diagnosis: ARF Postoperative diagnosis: same Primary procedure: RIJ Tesmayo Secondary procedure: Fluoroscopy Anesthesia: MAC Estimated blood loss: min Specimen: none Findings: Normal Anatomy Complications: None Transferred to: Recovery Room Condition: Good
--- NOTE | 2019-07-27 08:39 | RAD REPORT ---
EXAM DESCRIPTION: RAD - Fluoroscopy <1 Hour - 07/27/2019 8:27 am FINDINGS: There were 2 portable C-arm views obtained during fluoroscopic assisted placement of a Maude sio catheter. No suspicious or unexpected finding. Fluoro time was 0.1 minutes.
--- NOTE | 2019-07-27 08:57 | RAD REPORT ---
EXAM DESCRIPTION: RAD - Chest Single View - 07/27/2019 8:49 am CLINICAL HISTORY: Right-sided Tessio catheter placement COMPARISON: July 26 TECHNIQUE: AP portable chest image was obtained 0843 hours . FINDINGS: No pneumothorax is present. Catheter is well-positioned with the long and short arm in the mid and distal SVC. No acute lung parenchymal process. Heart and vasculature are normal. No pleural fluid. No acute bony abnormality seen. No acute aortic findings suspected. IMPRESSION: Right-side Tessio catheter is in good position. Short arm and long arm of the catheter a re in the mid and distal SVC. No pneumothorax.
[2019-07-27] MEDS ORDERED: AMLODIPINE 10 MG TAB PO SCH (09:00)
[2019-07-27] MEDS ORDERED: TIOTROPIUM 5 SPRAYS/INHALER IH SCH (09:00)
[2019-07-27] MEDS ORDERED: SOD FERRIC GLUC COMPLX/SUCROSE 125 MG in NA CHLORIDE 0.9% 100 ML IV SCH (11:00)
[2019-07-27] MEDS ORDERED: EPOETIN 4,000 UNIT/ML VIAL IV SCH (12:00)
--- NOTE | 2019-07-27 12:00 | PREOPCON ---
Date of Consultation: 07/26/2019 Reason: Patient needs emergent dialysis. History Of Present Illness: The patient is a 68-year-old female with multiple medical problems, who came in, was found to be uremic and symptomatic and requires dialysis. She had an NV and had some st ents placed. Her kidneys did not do well with contrast and have not recovered and is actually gettin g worse. Therefore, she would require dialysis at this time. Therefore, I was consulted. She is aw jesse, alert, no fever or chills. Review of Systems: Otherwise unremarkable. Past Medical History: Significant for hypertension; coronary artery disease; chronic atrial fibrilla tion with anticoagulation therapy, please note she got Eliquis 2 days ago; diabetes; hyperlipidemia; COPD. Past Surgical History: Cardiac stents, appendectomy, hysterectomy. Allergies: PLAVIX. Social History: She used to smoke, does not currently. Does not drink. Family History: Noncontributory. Physical Examination: Vital Signs: Stable. She is afebrile. General: She is awake, alert, and oriented x3. Head and Neck: Cranial nerves 2 through 12 are grossly within normal limits. No neck masses. No JV D. Throat clear. Neck: Supple. Chest: Clear. Heart: S1 and S2. Abdomen: Soft. Extremities: Neurovascularly intact. Neuro: Nonfocal. Laboratory Data: Her H and H is 7.6 and 22.3, platelets are 200. INR is 1.49. Chemistry shows BUN of 101 and creatinine of 10.2, potassium is 4.6. Assessment: A 68-year-old female with multiple medical problems with acute renal failure. Plan: We will go ahead and place a Tesio catheter. Patient understands the risks, benefits, and alt ernatives and agrees to procedure. /MODL Voice ID: [id number] Report ID: [id number]
[2019-07-27] MEDS: AMIODARONE HCL 200 MG TAB PO SCH (12:33)
[2019-07-27] MEDS: predniSONE 10 MG TAB PO SCH ×2 (12:33→22:05)
[2019-07-27] MEDS: FAMOTIDINE 20 MG TAB PO SCH (12:33)
--- NOTE | 2019-07-27 15:39 | P.PN ---
Subjective Date of Service: 07/27/19 Primary Care Provider: Dr. Mahan; Cardiology-Dr. Fajardo Chief Complaint: Abnormal lab Subjective: No C/O voiced, Tolerating diet, Improving, Working w/ PT, Doing well , Other (Status post HD catheter placement at this time.) Review of Systems 10-point ROS is otherwise unremarkable Physical Examination - Vital Signs Temperature: 96.9 F Blood Pressure: 133/62 Pulse: 63 Respirations: 18 Pulse Ox (%): 97 - Physical Exam General: Alert, In no apparent distress HEENT: Atraumatic, PERRLA, EOMI Neck: Supple, JVD not distended Respiratory: Clear to auscultation bilaterally, Normal air movement Cardiovascular: Regular rate/rhythm, Normal S1 S2 Gastrointestinal: Normal bowel sounds, No tenderness Musculoskeletal: No tenderness Integumentary: No rashes Neurological: Normal speech, Normal tone, Normal affect Lymphatics: No axilla or inguinal lymphadenopathy - Studies Medications List Reviewed: Yes Assessment And Plan - Current Problems (Diagnosis) (1) Acute on chronic kidney failure Current Visit: Yes Status: Acute Qualifiers: Acute renal failure type: unspecified Chronic kidney disease stage: stage 4 (severe) Qualified Code(s): N17.9 - Acute kidney failure, unspecified; N18.4 - Chronic kidney disease, stage 4 (severe) (2) UTI (urinary tract infection) Current Visit: Yes Status: Acute Qualifiers: Urinary tract infection type: acute cystitis Hematuria presence: without hematuria Qualified Code(s): N30.00 - Acute cystitis without hematuria (3) Hypertension Current Visit: Yes Status: Chronic Qualifiers: Hypertension type: essential hypertension Qualified Code(s): I10 - Essential (primary) hypertension (4) Hyperlipidemia Current Visit: Yes Status: Chronic Qualifiers: Hyperlipidemia type: mixed hyperlipidemia Qualified Code(s): E78.2 - Mixed hyperlipidemia (5) Atrial fibrillation Current Visit: No Status: Chronic Qualifiers: Atrial fibrillation type: paroxysmal Qualified Code(s): I48.0 - Paroxysmal atrial fibrillation (6) Current tobacco use Onset Date: 11/11/18 Current Visit: No Status: Chronic (7) History of coronary artery stent placement Current Visit: No Status: Chronic - Plan Assessment and plan: Acute on chronic renal failure stage 5 not on dialysis: Patient is currently status post temporary dialysis catheter placement. Nephrology consulted and appreciated recommendations. Patient scheduled for hemodialysis today. Acute worsening of the renal function most likely secondary to recent heart catheterization done June 26. Urinary tract infection: Patient with urine culture positive for Gram negative rods. Blood culture also positive for Gram negative rods 1/2. Currently started on Rocephin. Will continue to follow up with cultures here CAD with recent stent: Will monitor closely. Cardiology consulted. Brilinta will be restarted today status post catheter placement Chronic atrial fibrillation on chronic anti coagulation therapy: Amiodarone and Eliquis Hypertension: Restart home medication. Hyperlipidemia: Restart home medication. Diabetes mellitus type 2 non insulin dependent: Sliding scale and monitor Accu- Cheks. COPD on chronic oxygen/prednisone: Continue with COPD medication. Maintain oxygen above 93%. Anemia of chronic disease: Will monitor closely. Will check iron and B12 studies. Patient may require transfusion if hemoglobin below 7.5. Disposition: Will continue with hemodialysis and follow up with nephrology for further recommendations. Discharge Plan: Home Plan to discharge in: Greater than 2 days - Code Status/Comfort Care Code Status Assessed: Yes Critical Care: No
--- NOTE | 2019-07-27 16:27 | PN ---
Date of Progress Note: 07/27/2019 History: Patient was admitted with acute kidney injury on chronic kidney disease secondary to contra st/cardiorenal, questionable atheroembolic. Patient nonoliguric. Physical Examination: Vital Signs: Blood pressure 141/63, pulse of 65, afebrile. Chest: Faint crackles on the base. Heart: S1 and S2, regular. Systolic murmur. Abdomen: Soft, nontender. Extremities: No edema. Laboratory Data: WBC 6.9, H and H of 7.6/22.3, platelets 200. Sodium 136, potassium 4.6, bicarb 21, BUN 101, creatinine 10.2, GFR of 4, calcium 7.6, magnesium 2.2. PTH is still pending. Vitamin D is low, T-sat of 11, ferritin of 255. Current Medications: The patient on include cefazolin, amiodarone, amlodipine 10 mg, carvedilol, Pep skyler, prednisone. Assessment And Plan: 1.Acute kidney injury on chronic kidney disease, nonoliguric, uremic. Patient is going to be initia margoth on dialysis today. I had long discussion with the patient regarding the option of dialysis. Pat ient in favor of home hemodialysis. We will go ahead and send the referral. We will start monitorin g the patient. 2.Hypertension, controlled, optimal. Given that the patient is going to be started on dialysis, I w ill discontinue amlodipine. 3.Iron-deficiency anemia. Start the patient on IV iron. We will start the patient on Retacrit. We will follow up. 4.Coronary artery disease, stable. Will follow up with Cardiology. ESPERANZA Voice ID: [id number] Report ID: [id number]
--- NOTE | 2019-07-27 18:36 | PN ---
Date of Progress Note: 07/27/2019 Subjective: Ms. Estrella is 68. Ms. Estrella came in with acute renal failure. She has a history o f myocardial infarction in May of 2019. She had gone to [facility], underwent stent, complicated with congestive heart failure and renal failure, underwent echocardiogram that showed an ejection fraction of 30%. She had a LifeVest, was transferred to an LTAC. She also has COPD. She c omes in with end-stage renal disease. This morning, she underwent a dialysis catheter placement by Jamaica Gaines, which went uneventfully. Repeat echocardiogram showed an ejection fraction of 70%. We anupama l continue her present regimen. Resume her Brilinta 90 mg b.i.d. I believe she is going to have martha lysis today or tomorrow. I will let her primary care physician and Nephrology decide on that. We wi ll continue to follow her. RENETTA Voice ID: [id number] Report ID: [id number]
--- NOTE | 2019-07-27 20:19 | OP ---
Date of Procedure: 07/27/2019 Surgeon: Armaan Gaines MD Preoperative Diagnosis: Acute renal failure. Postoperative Diagnosis: Acute renal failure. Procedure: Right IJ Tesio catheter placement and interpretation of intraoperative fluoroscopy. Estimated Blood Loss: Minimal. Specimen: None. Findings: Normal anatomy. Anesthesia: MAC. Complications: None. Disposition: The patient tolerated the procedure in stable condition, taken to Recovery in good gene ral condition. Procedure In Detail: Patient was brought to the OR and placed in supine position. MAC anesthesia wa s begun. Patient was prepped and draped in usual sterile fashion. Lidocaine 1% infiltrated locally. An 18-gauge needle was used to access the right IJ vein. Guidewire was passed. Position was confi rmed with fluoroscopy. Counterincision was made on the right. Chest tunneling device was used to tu nnel the catheter between the 2 wounds. Seldinger technique was used. Tip of the catheter was place d in the SVC under fluoroscopy. Then, catheter flushed with heparin and packed with heparin with goo d blood flow. Subsequently, 3-0 chromic used to reapproximate the subcutaneous tissues and 3-0 nylon used to secure the tube to the chest wall. Sterile dressing was applied. Patient was awakened and taken to Recovery in good general condition, and chest x-ray has been ordered. TERRELL/LUIS ENRIQUE Voice ID: [id number] Report ID: [id number]
[2019-07-27] MEDS: APIXABAN 2.5 MG TABLET PO SCH ×2 (21:00→22:05)
[2019-07-27] MEDS: TICAGRELOR 90 MG TABLET PO SCH ×2 (21:00→22:04)
[2019-07-27] MEDS: CEFTRIAXONE/SWI 1gm 1 GM/10 ML SYR IV SCH (22:05)
[2019-07-27] MEDS: ATORVASTATIN 40 MG TAB PO SCH (22:05)
[2019-07-28 04:35] LABS: Absolute Lymphocytes (CBC) 0.6 K/uL (0.7-4.9); Basophils % 0.3 % (0-1.3); Hematocrit 23.1 % (36.0-45.0); Lymphocytes % 7.1 % (15.3-44.8); MPV 10.3 fL (7.6-11.3); RBC Red Blood Cell Count 2.52 M/uL (3.86-4.86)
[2019-07-28 05:02] LABS: Magnesium 2.2 mg/dL (1.8-2.4); Potassium 4.5 mmol/L (3.5-5.1)
[2019-07-28] MEDS: CARVEDILOL 12.5 MG TAB PO SCH ×2 (05:25→17:47)
[2019-07-28] MEDS: INSULIN -REGULAR HUMAN 50 UNIT/0.5 ML ML SQ SCH ×4 (07:30→20:29)
[2019-07-28] MEDS: AMIODARONE HCL 200 MG TAB PO SCH (08:39)
[2019-07-28] MEDS: predniSONE 10 MG TAB PO SCH ×2 (08:39→20:28)
[2019-07-28] MEDS: FAMOTIDINE 20 MG TAB PO SCH (08:39)
[2019-07-28] MEDS: APIXABAN 2.5 MG TABLET PO SCH ×2 (11:52→20:29)
[2019-07-28] MEDS: CEFTRIAXONE/SWI 1gm 1 GM/10 ML SYR IV SCH ×2 (11:52→20:35)
[2019-07-28] MEDS: TICAGRELOR 90 MG TABLET PO SCH ×2 (12:21→20:29)
--- NOTE | 2019-07-28 12:54 | P.PN ---
Subjective Date of Service: 07/28/19 Primary Care Provider: Dr. Mahan; Cardiology-Dr. Fajardo Chief Complaint: Abnormal lab Review of Systems 10-point ROS is otherwise unremarkable Physical Examination - Vital Signs Temperature: 97.6 F Blood Pressure: 140/66 Pulse: 65 Respirations: 20 Pulse Ox (%): 97 - Physical Exam General: Alert, In no apparent distress HEENT: Atraumatic, PERRLA, EOMI Neck: Supple, JVD not distended Respiratory: Clear to auscultation bilaterally, Normal air movement Cardiovascular: Regular rate/rhythm, Normal S1 S2 Gastrointestinal: Normal bowel sounds, No tenderness Musculoskeletal: No tenderness Integumentary: No rashes Neurological: Normal speech, Normal tone, Normal affect Lymphatics: No axilla or inguinal lymphadenopathy - Studies Medications List Reviewed: Yes Assessment And Plan - Current Problems (Diagnosis) (1) Acute on chronic kidney failure Current Visit: Yes Status: Acute Qualifiers: Acute renal failure type: unspecified Chronic kidney disease stage: stage 4 (severe) Qualified Code(s): N17.9 - Acute kidney failure, unspecified; N18.4 - Chronic kidney disease, stage 4 (severe) (2) UTI (urinary tract infection) Current Visit: Yes Status: Acute Qualifiers: Urinary tract infection type: acute cystitis Hematuria presence: without hematuria Qualified Code(s): N30.00 - Acute cystitis without hematuria (3) Hypertension Current Visit: Yes Status: Chronic Qualifiers: Hypertension type: essential hypertension Qualified Code(s): I10 - Essential (primary) hypertension (4) Hyperlipidemia Current Visit: Yes Status: Chronic Qualifiers: Hyperlipidemia type: mixed hyperlipidemia Qualified Code(s): E78.2 - Mixed hyperlipidemia (5) Atrial fibrillation Current Visit: No Status: Chronic Qualifiers: Atrial fibrillation type: paroxysmal Qualified Code(s): I48.0 - Paroxysmal atrial fibrillation (6) Current tobacco use Onset Date: 11/11/18 Current Visit: No Status: Chronic (7) History of coronary artery stent placement Current Visit: No Status: Chronic - Plan Assessment and plan: Acute on chronic renal failure stage 5 not on dialysis: Patient is currently status post temporary dialysis catheter placement. Nephrology consulted and appreciated recommendations. Patient scheduled for hemodialysis again today. Acute worsening of the renal function most likely secondary to recent heart catheterization done June 26. Urinary tract infection: Patient with urine culture positive for Klebesilla. Blood culture also positive for Gram negative rods 1/2. Currently started on Rocephin. Will continue to follow up with cultures here CAD with recent stent: Will monitor closely. Cardiology consulted. Brilinta Restarted Chronic atrial fibrillation on chronic anti coagulation therapy: Amiodarone and Eliquis Hypertension: Restart home medication. Hyperlipidemia: Restart home medication. Diabetes mellitus type 2 non insulin dependent: Sliding scale and monitor Accu- Cheks. COPD on chronic oxygen/prednisone: Continue with COPD medication. Maintain oxygen above 93%. Anemia of chronic disease: Will monitor closely. Will check iron and B12 studies. Patient may require transfusion if hemoglobin below 7.5. Disposition: Will continue with hemodialysis and follow up with nephrology for further recommendations. Discharge Plan: Home Plan to discharge in: Greater than 2 days - Code Status/Comfort Care Code Status Assessed: Yes Critical Care: No
[2019-07-28] MEDS ORDERED: NA CHLORIDE 0.9% 1,000 ML IV PRN (14:54)
[2019-07-28] MEDS ORDERED: ALBUMIN HUMAN 25% 50 ML IV SCH (15:00)
--- NOTE | 2019-07-28 15:41 | PN ---
Date of Progress Note: 07/28/2019 Subjective: The patient feeling better, status post dialysis yesterday, tolerated dialysis very well , managed to remove 400. Physical Examination: Vital Signs: When I saw the patient; blood pressure 138/65, pulse of 63. Chest: Faint crackles on the base. Heart: S1, S2. Regular. Abdomen: Soft, nontender. Extremities: No edema. Laboratory Data: WBC 8, H and H 7.9/23.1, platelets 207. Sodium 139, potassium 4.5, bicarb 26, BUN 61, creatinine 6.6, calcium 7.6. Magnesium 2.2. Serum protein electrophoresis still pending. TSH 5 .6, LDH 238. Complement still pending. Hepatitis is still pending. Current Medications: The patient on its include: 1.Ceftriaxone. 2.Eliquis. 3.Epogen. 4.IV iron. 5.Amiodarone. 6.Carvedilol 12.5 b.i.d. 7.Pepcid. 8.Insulin. 9.Prednisone. Assessment And Plan: 1.Acute kidney injury on chronic kidney disease, nonoliguric. Normal volume was initiated on dialys is. We will continue another session of dialysis today to establish better volume control and we anupama l monitor the patient. 2.Anemia of chronic kidney disease/iron-deficiency anemia. Patient started on Retacrit and IV iron. We will continue to monitor the patient. 3.Hypertension, currently blood pressure well controlled. Yesterday, we will discontinue the amlodi pine. I am going to go ahead and decrease her carvedilol today to avoid any intradialytic low blood pressure and we will monitor the patient. 4.Deconditioning. Continue PT/OT. 5.Coronary artery disease, congestive heart failure, stable. We will follow up with Cardiology. Ilan rivera waiting for approval for outpatient dialysis as home dialysis as patient wishes. JOAO/LUIS ENRIQUE Voice ID: [id number] Report ID: [id number]
--- NOTE | 2019-07-28 16:29 | PN ---
Subjective: Patient had a little bit of oozing of blood from her insertion site yesterday and was ad vised to place a sandbag and hold blood thinners for another day. She is awake and alert, feels much better after dialysis. No problems with using the catheter and there was no active bleeding or no f urther bleeding from the insertion site. Assessment: Status post Tesio catheter. Recommendation: I will have the dialysis nurse change the dressing sterilely. Reconsult p.r.n. The y can start the blood thinners later today. /MODL Voice ID: [id number] Report ID: [id number]
[2019-07-28] MEDS: ATORVASTATIN 40 MG TAB PO SCH (20:28)
[2019-07-28 20:43] LABS: HBsAG Nonreactive (Nonreactive)
[2019-07-29] MEDS: CARVEDILOL 12.5 MG TAB PO SCH (05:02)
[2019-07-29 05:30] LABS: Albumin, (SPE) 2.2 g/dL (3.8-4.8); Alpha-1-Globulins 0.6 g/dL (0.2-0.3); INTERPRETATION REPORT
[2019-07-29 05:54] LABS: Absolute Lymphocytes (CBC) 0.7 K/uL (0.7-4.9); Basophils % 0.1 % (0-1.3); Hematocrit 23.9 % (36.0-45.0); Lymphocytes % 8.5 % (15.3-44.8); MPV 10.5 fL (7.6-11.3)
[2019-07-29 06:03] LABS: Magnesium 2.1 mg/dL (1.8-2.4); Potassium 4.2 mmol/L (3.5-5.1)
[2019-07-29] MEDS: INSULIN -REGULAR HUMAN 50 UNIT/0.5 ML ML SQ SCH ×4 (07:30→21:00)
[2019-07-29] MEDS: TICAGRELOR 90 MG TABLET PO SCH (09:00)
[2019-07-29] MEDS: APIXABAN 2.5 MG TABLET PO SCH (09:00)
[2019-07-29] MEDS: AMIODARONE HCL 200 MG TAB PO SCH (09:06)
[2019-07-29] MEDS: CEFTRIAXONE/SWI 1gm 1 GM/10 ML SYR IV SCH (09:06)
[2019-07-29] MEDS: predniSONE 10 MG TAB PO SCH ×2 (09:06→21:00)
[2019-07-29] MEDS: FAMOTIDINE 20 MG TAB PO SCH (09:06)
[2019-07-29] MEDS: TIOTROPIUM 5 SPRAYS/INHALER IH SCH (09:07)
--- NOTE | 2019-07-29 13:22 | P.PN ---
Subjective Date of Service: 07/29/19 Primary Care Provider: Dr. Mahan; Cardiology-Dr. Fajardo Chief Complaint: Abnormal lab Subjective: Tolerating diet, Ambulating, Improving, Working w/ PT, Other (Had oozing from HD catheter site last night. Edilia Held) Review of Systems 10-point ROS is otherwise unremarkable Physical Examination - Vital Signs Temperature: 97.5 F Blood Pressure: 185/82 Pulse: 69 Respirations: 16 Pulse Ox (%): 95 - Physical Exam General: Alert, In no apparent distress HEENT: Atraumatic, PERRLA, EOMI Neck: Supple, JVD not distended Respiratory: Clear to auscultation bilaterally, Normal air movement Cardiovascular: Regular rate/rhythm, Normal S1 S2 Gastrointestinal: Normal bowel sounds, No tenderness Musculoskeletal: No tenderness Integumentary: No rashes Neurological: Normal speech, Normal tone, Normal affect Lymphatics: No axilla or inguinal lymphadenopathy - Studies Medications List Reviewed: Yes Assessment And Plan - Current Problems (Diagnosis) (1) Acute on chronic kidney failure Current Visit: Yes Status: Acute Qualifiers: Acute renal failure type: unspecified Chronic kidney disease stage: stage 4 (severe) Qualified Code(s): N17.9 - Acute kidney failure, unspecified; N18.4 - Chronic kidney disease, stage 4 (severe) (2) UTI (urinary tract infection) Current Visit: Yes Status: Acute Qualifiers: Urinary tract infection type: acute cystitis Hematuria presence: without hematuria Qualified Code(s): N30.00 - Acute cystitis without hematuria (3) Hypertension Current Visit: Yes Status: Chronic Qualifiers: Hypertension type: essential hypertension Qualified Code(s): I10 - Essential (primary) hypertension (4) Hyperlipidemia Current Visit: Yes Status: Chronic Qualifiers: Hyperlipidemia type: mixed hyperlipidemia Qualified Code(s): E78.2 - Mixed hyperlipidemia (5) Atrial fibrillation Current Visit: No Status: Chronic Qualifiers: Atrial fibrillation type: paroxysmal Qualified Code(s): I48.0 - Paroxysmal atrial fibrillation (6) Current tobacco use Onset Date: 11/11/18 Current Visit: No Status: Chronic (7) History of coronary artery stent placement Current Visit: No Status: Chronic - Plan Assessment and plan: Acute on chronic renal failure stage 5 not on dialysis: Patient is currently status post temporary dialysis catheter placement. Nephrology consulted and appreciated recommendations. Patient scheduled for hemodialysis. Acute worsening of the renal function most likely secondary to recent heart catheterization done June 26. Has been approved for Home HD. Water Test is pending. Can be DC after Water test, No need to await hep panel per Nephrology Urinary tract infection: Patient with urine culture positive for Klebesilla. Blood culture also positive for Klebesilla. Now on Doxycycline. CAD with recent stent: Will monitor closely. Cardiology consulted. Brilinta Restarted Chronic atrial fibrillation on chronic anti coagulation therapy: Amiodarone and Eliquis Hypertension: Restart home medication. Hyperlipidemia: Restart home medication. Diabetes mellitus type 2 non insulin dependent: Sliding scale and monitor Accu- Cheks. COPD on chronic oxygen/prednisone: Continue with COPD medication. Maintain oxygen above 93%. Anemia of chronic disease: Will monitor closely. Will check iron and B12 studies. Patient may require transfusion if hemoglobin below 7.5. Disposition: Will continue with hemodialysis and setup home HD Discharge Plan: Home Plan to discharge in: Greater than 2 days - Code Status/Comfort Care Code Status Assessed: Yes Critical Care: No
--- NOTE | 2019-07-29 16:55 | PN ---
Date of Progress Note: 07/29/2019 Subjective: Patient was admitted with over volume, uremic symptoms. Patient is slightly confused. Physical Examination: Vital Signs: Blood pressure 139/65, pulse of 69. Patient still have good urine output. Chest: Clear to auscultation. Heart: S1, S2. Regular. Abdomen: Soft, nontender. Extremities: No edema. Laboratory Data: WBC 7.8, H and H 7.9/23.9, platelets 204. Sodium 138, potassium 4.2, bicarb 26, BUN 33, creatinine 4.2, calcium 7.9. Magnesium 2.1. Serum protein electrophoresis small M spike. Urine negative for infection. Serology hepatitis negative. Urine culture growing Klebsiella pneumoniae. Blood culture, Klebsiella pneumoniae. Assessment And Plan: 1. Acute kidney injury. Tolerating dialysis. We will switch the patient to dialysis Friday, Friday, Friday. Patient requesting home hemodialysis. We will arrange for home hemo. 2. Hypertension, controlled, optimal. Continue current medication. 3. Urinary tract infection with bacteremia. I am going to continue on antibiotic dose appropriate. 4. Coronary artery disease, stable. Follow up with Cardiology. 5. Monoclonal spike. I will follow up immunofixation. Current medication, the patient on doxycycline, Eliquis, Epogen, IV iron, carvedilol 12.5 b.i.d., amiodarone, atorvastatin, Tylenol, Pepcid, ipratropium, prednisone. 6. Hypertension, uncontrolled. I am going to go ahead and increase carvedilol to 25. We will follow up blood pressure after dialysis tomorrow. 7. Anemia of chronic kidney disease. Continue IV iron. Continue retic rate. ESPERANZA Voice ID: [id number] Report ID: [id number] QUENTIN
--- NOTE | 2019-07-29 17:09 | PN ---
Date of Progress Note: 07/29/2019 Subjective: Patient was admitted with uremic symptoms, acute kidney injury after cardiac surgery. P papito was initiated on dialysis. Physical Examination: Vital Signs: Blood pressure 178/79, pulse of 68. Patient still had urine output of 500. Chest: Faint crackles on the left base. Heart: S1, S2 systolic murmur. Abdomen: Soft, nontender. Extremities: No edema. Laboratory Data: WBC 7.8, H and H 7.9/23.9, platelets 204. Sodium 138, potassium 4.2, bicarb 26, BU N 33, creatinine 4.2, calcium 7.9. Magnesium 2.1. Serum protein electrophoresis small M spike. Uri ne negative for infection. Serology hepatitis negative. Urine culture growing Klebsiella pneumoniae . Blood culture, Klebsiella pneumoniae. Assessment And Plan: 1.Acute kidney injury. Tolerating dialysis. We will switch the patient to dialysis Friday, , Friday. Patient requesting home hemodialysis. We will arrange for home hemo. 2.Hypertension, controlled, optimal. Continue current medication. 3.Urinary tract infection with bacteremia. I am going to continue on antibiotic dose appropriate. 4.Coronary artery disease, stable. Follow up with Cardiology. 5.Monoclonal spike. I will follow up immunofixation. Current medication, the patient on doxycyclin e, Eliquis, Epogen, IV iron, carvedilol 12.5 b.i.d., amiodarone, atorvastatin, Tylenol, Pepcid, iprat ropium, prednisone. 6.Hypertension, uncontrolled. I am going to go ahead and increase carvedilol to 25. We will follow up blood pressure after dialysis tomorrow. 7.Anemia of chronic kidney disease. Continue IV iron. Continue retic rate. JOAO/LUIS ENRIQUE Voice ID: [id number] Report ID: [id number]
[2019-07-29] MEDS: CARVEDILOL 25 MG TAB PO SCH (17:39)
[2019-07-29] MEDS: DOXYCYCLINE 100 MG CAP PO SCH (21:00)
[2019-07-29] MEDS: ATORVASTATIN 40 MG TAB PO SCH (21:00)
[2019-07-30] MEDS: CARVEDILOL 25 MG TAB PO SCH ×2 (05:53→17:47)
[2019-07-30] MEDS: predniSONE 10 MG TAB PO SCH ×2 (08:06→22:38)
[2019-07-30] MEDS: DOXYCYCLINE 100 MG CAP PO SCH ×2 (08:07→22:38)
[2019-07-30] MEDS: FAMOTIDINE 20 MG TAB PO SCH (08:07)
[2019-07-30] MEDS: AMIODARONE HCL 200 MG TAB PO SCH (08:07)
[2019-07-30] MEDS: TIOTROPIUM 5 SPRAYS/INHALER IH SCH (08:08)
[2019-07-30 08:17] LABS: Absolute Lymphocytes (CBC) 0.6 K/uL (0.7-4.9); Basophils % 0.3 % (0-1.3); Hematocrit 23.8 % (36.0-45.0); Lymphocytes % 8.1 % (15.3-44.8); MPV 9.9 fL (7.6-11.3); RBC Red Blood Cell Count 2.57 M/uL (3.86-4.86)
[2019-07-30] MEDS: INSULIN -REGULAR HUMAN 50 UNIT/0.5 ML ML SQ SCH ×4 (08:18→21:00)
[2019-07-30 09:00] LABS: Magnesium 2.1 mg/dL (1.8-2.4); Potassium 4.3 mmol/L (3.5-5.1)
[2019-07-30 09:26] LABS: Anisocytosis 1+; Blood Morphology Comment NOTED (NOT SEEN); Hypochromasia 1+; Platelet Estimate ADEQ
--- NOTE | 2019-07-30 09:32 | P.PN ---
Subjective Date of Service: 07/30/19 Primary Care Provider: Dr. Mahan; Cardiology-Dr. Fajardo Chief Complaint: Abnormal lab Subjective: Doing well Physical Examination - Vital Signs Temperature: 98.0 F Blood Pressure: 146/61 Pulse: 65 Respirations: 18 Pulse Ox (%): 90 - Physical Exam General: Alert, In no apparent distress, Oriented x3, Cooperative HEENT: Atraumatic Neck: Supple Respiratory: Clear to auscultation bilaterally, Normal air movement Cardiovascular: Normal pulses, Regular rate/rhythm Gastrointestinal: Normal bowel sounds, Soft and benign, Non-distended, No tenderness, No masses, No rebound, No guarding Integumentary: Other (No oozing to the right upper chest wall where dialysis catheter is) Neurological: Normal speech, Normal strength at 5/5 x4 extr, Normal tone, Normal affect - Studies Medications List Reviewed: Yes Assessment & Plan Discharge Plan: Home Plan to discharge in: 24 Hours Physician Review Additional Text: Impression: Acute on chronic renal failure stage 5 now end-stage renal disease on hemodialysis Hypertension Hyperlipidemia Chronic paroxysmally atrial fibrillation on chronic anti coagulation therapy CAD with prior stent Tobacco abuse 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 Patient reports water test done at home. Will discuss with nephrology today for likely discharge today if not tomorrow. Discharge dependent on water test and approval and set up of home dialysis. Hypertension: Continue with blood pressure medication. Will monitor and address appropriately Hyperlipidemia: Continue with medication. Chronic paroxysmally atrial fibrillation on chronic anti coagulation therapy: Continue with amiodarone and Eliquis. CAD with prior stent: Continue with Brilinta. Tobacco abuse: Continue to address lifestyle modification education and tobacco cessation. 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 Patient on chronic oxygen and steroid dependent. Diabetes mellitus type 2 non-insulin dependent: Continue with medication. Will continue to monitor Accu-Cheks. Sliding scale in place. Anemia of chronic disease with iron deficiency: Hemoglobin stable at this time. Continue IV iron and Epogen with dialysis. Patient will continue with iron supplementation at discharge. UTI with bacteremia, urine and blood culture positive for Klebsiella: Continue with doxycycline for a total of 14 days. Recommend to recheck blood culture and urine culture after that time to monitor resolution. Hyperlipidemia: Continue with medication. Time Spent Managing Pts Care (In Minutes): 55
[2019-07-30 09:35] LABS: Toxic Granulation 1+
[2019-07-30] MEDS ORDERED: EPOETIN 4,000 UNIT/ML VIAL IV SCH (09:45)
--- NOTE | 2019-07-30 11:23 | P.PN ---
Subjective Date of Service: 07/30/19 Primary Care Provider: Dr. Mahan; Cardiology-Dr. Fajardo Chief Complaint: Abnormal lab Subjective: New changes Pt with BARON , started on HD today no new complaints trace edema scheduled for HD today pending water test results , possible discharge over the weekend will increase epogen Physical Examination - Vital Signs Temperature: 98.0 F Blood Pressure: 146/61 Pulse: 65 Respirations: 18 Pulse Ox (%): 90 - Physical Exam General: In no apparent distress, Oriented x3 HEENT: Atraumatic Neck: Supple, Without JVD or thyroid abnormality Respiratory: Clear to auscultation bilaterally, Normal air movement Cardiovascular: Edema (trace ) Gastrointestinal: Normal bowel sounds, Soft and benign, Non-distended, No ascites, No tenderness Musculoskeletal: No swelling - Studies Medications List Reviewed: Yes Assessment And Plan - Plan Acute kidney injury. started on HD plan for home HD , pending water test results anticipated discharge over the weekend Klebsiella bacteremia On Doxycycline anemia F/U SPEP/UPEP Hb stable will increase epogen Cont IV iron HTN controlled now
[2019-07-30] MEDS: ATORVASTATIN 40 MG TAB PO SCH (22:38)
[2019-07-31] MEDS: CARVEDILOL 25 MG TAB PO SCH ×2 (06:06→17:19)
[2019-07-31] MEDS: INSULIN -REGULAR HUMAN 50 UNIT/0.5 ML ML SQ SCH ×4 (07:30→20:40)
[2019-07-31] MEDS: predniSONE 10 MG TAB PO SCH ×2 (09:22→20:40)
[2019-07-31] MEDS: AMIODARONE HCL 200 MG TAB PO SCH (09:22)
[2019-07-31] MEDS: FAMOTIDINE 20 MG TAB PO SCH (09:22)
[2019-07-31] MEDS: TIOTROPIUM 5 SPRAYS/INHALER IH SCH (09:22)
[2019-07-31] MEDS: DOXYCYCLINE 100 MG CAP PO SCH ×2 (09:22→20:40)
--- NOTE | 2019-07-31 12:35 | P.PN ---
Subjective Date of Service: 07/31/19 Primary Care Provider: Dr. Mahan; Cardiology-Dr. Fajardo Chief Complaint: Abnormal lab Subjective: Doing well Physical Examination - Vital Signs Temperature: 97.2 F Blood Pressure: 178/75 Pulse: 60 Respirations: 18 Pulse Ox (%): 97 - Physical Exam General: Alert, In no apparent distress, Oriented x3, Cooperative HEENT: Atraumatic Neck: Supple Respiratory: Clear to auscultation bilaterally, Normal air movement Cardiovascular: Normal pulses, Regular rate/rhythm Gastrointestinal: Normal bowel sounds, Soft and benign, Non-distended Neurological: Normal speech, Normal strength at 5/5 x4 extr, Normal tone, Normal affect - Studies Medications List Reviewed: Yes Assessment & Plan Discharge Plan: Home Plan to discharge in: 24 Hours Physician Review Additional Text: Impression: Acute on chronic renal failure stage 5 now end-stage renal disease on hemodialysis Hypertension Hyperlipidemia Chronic paroxysmally atrial fibrillation on chronic anti coagulation therapy CAD with prior stent Tobacco abuse 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 Anticipate discharge within the next 24-48 hr pending approval for home dialysis and all water test analysis. Hypertension: Will add hydralazine for better blood pressure control. Patient already on carvedilol. Will monitor and address appropriately Hyperlipidemia: Continue with medication. Chronic paroxysmally atrial fibrillation on chronic anti coagulation therapy: Continue with amiodarone and Eliquis. CAD with prior stent: Continue with Brilinta. Tobacco abuse: Continue to address lifestyle modification education and tobacco cessation. 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 Patient on chronic oxygen and steroid dependent. Diabetes mellitus type 2 non-insulin dependent: Continue with medication. Will continue to monitor Accu-Cheks. Sliding scale in place. Anemia of chronic disease with iron deficiency: Hemoglobin stable at this time. Continue IV iron and Epogen with dialysis. Patient will continue with iron supplementation at discharge. UTI with bacteremia, urine and blood culture positive for Klebsiella: Continue with doxycycline for a total of 14 days. Recommend to recheck blood culture and urine culture after that time to monitor resolution. Hyperlipidemia: Continue with medication. Time Spent Managing Pts Care (In Minutes): 55
--- NOTE | 2019-07-31 13:38 | P.PN ---
Subjective Date of Service: 07/31/19 Primary Care Provider: Dr. Mahan; Cardiology-Dr. Fajardo Chief Complaint: Abnormal lab Subjective: New changes Pt with BARON , started on HD today no new complaints edema resolved BP is elevated today, agree wit adding hydralazine will arrange for 1 PRBC tomorrow or Friday with HD pending water test results , possible discharge over the weekend Physical Examination - Vital Signs Temperature: 97.2 F Blood Pressure: 178/75 Pulse: 60 Respirations: 18 Pulse Ox (%): 97 - Physical Exam General: In no apparent distress, Oriented x3, Obese HEENT: Atraumatic Neck: Supple, Without JVD or thyroid abnormality Respiratory: Clear to auscultation bilaterally, Normal air movement Cardiovascular: No edema, Regular rate/rhythm, Normal S1 S2, No gallops, No rubs , No murmurs Gastrointestinal: Normal bowel sounds, Soft and benign - Studies Medications List Reviewed: Yes Assessment And Plan - Plan Acute kidney injury. started on HD plan for home HD , pending water test results anticipated discharge over the weekend Klebsiella bacteremia On Doxycycline anemia F/U SPEP/UPEP on epogen , Cont IV iron will transfuse 1 PRBC tomorrow or Friday HTN elevated today Hydralazine added
--- NOTE | 2019-07-31 16:47 | PN ---
Ms. Mccallum is significantly confused and this is in comparison to what I knew her to be like before her [place] in May of this year. I think at some point, a neurological evaluation should be done. Overall, her general condition has improved greatly since she has been on dialysis. On admission, c reatinine was 10 and now it is 5.39. She no longer seems to have uremic symptoms, so a great improve ment has occurred. MATT/LUIS ENRIQUE Voice ID: [id number] Report ID: [id number]
[2019-07-31] MEDS ORDERED: LACTULOSE 20 GM/30 ML UCUP PO PRN (17:33)
[2019-07-31] MEDS: ATORVASTATIN 40 MG TAB PO SCH (20:39)
[2019-07-31] MEDS: HYDRALAZINE HCL 25 MG TABLET PO SCH (20:39)
[2019-08-01 00:43] VITALS: BMI 23.7
[2019-08-01] MEDS: CARVEDILOL 25 MG TAB PO SCH ×2 (06:31→16:51)
[2019-08-01 06:39] LABS: Absolute Lymphocytes (CBC) 0.9 K/uL (0.7-4.9); Basophils % 0.1 % (0-1.3); Hematocrit 25.3 % (36.0-45.0); Lymphocytes % 9.1 % (15.3-44.8); MPV 10.2 fL (7.6-11.3); RBC Red Blood Cell Count 2.68 M/uL (3.86-4.86)
[2019-08-01] MEDS: INSULIN -REGULAR HUMAN 50 UNIT/0.5 ML ML SQ SCH ×3 (07:30→16:17)
[2019-08-01] MEDS ORDERED: DOCUSATE NA 100 MG CAP PO SCH (09:00)
[2019-08-01] MEDS: AMIODARONE HCL 200 MG TAB PO SCH (09:07)
[2019-08-01] MEDS: TIOTROPIUM 5 SPRAYS/INHALER IH SCH (09:07)
[2019-08-01] MEDS: predniSONE 10 MG TAB PO SCH (09:07)
[2019-08-01] MEDS: FAMOTIDINE 20 MG TAB PO SCH (09:07)
[2019-08-01] MEDS: DOXYCYCLINE 100 MG CAP PO SCH (09:07)
[2019-08-01] MEDS: HYDRALAZINE HCL 25 MG TABLET PO SCH (09:07)
--- NOTE | 2019-08-01 11:20 | P.PN ---
Subjective Date of Service: 08/01/19 Primary Care Provider: Dr. Mahan; Cardiology-Dr. Fajardo Chief Complaint: Abnormal lab Subjective: Improving, Doing well Physical Examination - Vital Signs Temperature: 98 F Blood Pressure: 126/60 Pulse: 61 Respirations: 18 Pulse Ox (%): 96 - Physical Exam General: Alert, In no apparent distress, Oriented x3, Cooperative HEENT: Atraumatic Neck: Supple Respiratory: Clear to auscultation bilaterally, Normal air movement Cardiovascular: Normal pulses, Regular rate/rhythm Gastrointestinal: Normal bowel sounds, Soft and benign, Non-distended Neurological: Normal speech, Normal strength at 5/5 x4 extr, Normal tone, Normal affect - Studies Medications List Reviewed: Yes Assessment & Plan Discharge Plan: Home Plan to discharge in: 24 Hours Physician Review Additional Text: Impression: Acute on chronic renal failure stage 5 now end-stage renal disease on hemodialysis Hypertension Hyperlipidemia Chronic paroxysmally atrial fibrillation on chronic anti coagulation therapy CAD with prior stent Tobacco abuse 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 Case discussed with nephrology. Anticipate discharge tomorrow after dialysis. Hypertension: Patient currently on hydralazine and carvedilol. Continue to adjust medication for better blood pressure control. Will monitor and address appropriately Hyperlipidemia: Continue with medication. Chronic paroxysmally atrial fibrillation on chronic anti coagulation therapy: Continue with amiodarone and Eliquis. CAD with prior stent: Continue with Brilinta. Tobacco abuse: Continue to address lifestyle modification education and tobacco cessation. 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 Patient on chronic oxygen and steroid dependent. Diabetes mellitus type 2 non-insulin dependent: Continue with medication. Will continue to monitor Accu-Cheks. Sliding scale in place. Anemia of chronic disease with iron deficiency: Hemoglobin stable at this time. Nephrology may provide transfusion if hemoglobin below 7. Continue IV iron and Epogen with dialysis. Patient will continue with iron supplementation at discharge. UTI with bacteremia, urine and blood culture positive for Klebsiella: Continue with doxycycline for a total of 14 days. Recommend to recheck blood culture and urine culture after that time to monitor resolution. Hyperlipidemia: Continue with medication. Time Spent Managing Pts Care (In Minutes): 55
--- NOTE | 2019-08-01 11:44 | P.PN ---
Subjective Date of Service: 08/01/19 Primary Care Provider: Dr. Mahan; Cardiology-Dr. Fajardo Chief Complaint: Abnormal lab Subjective: No new changes Pt with BARON , started on HD today no new complaints Plan for HD tomorrow pending out Pt dialysis arrangement , likely will have water results by tomorrow Hd tomorrow likely will be cleared for discharge tomorrow after HD and once OP HD arranged Physical Examination - Vital Signs Temperature: 98 F Blood Pressure: 126/60 Pulse: 61 Respirations: 18 Pulse Ox (%): 96 - Physical Exam General: In no apparent distress, Oriented x3 HEENT: Atraumatic Neck: Supple, JVD not distended, Without JVD or thyroid abnormality Respiratory: Clear to auscultation bilaterally, Normal air movement Cardiovascular: No edema, Regular rate/rhythm, Normal S1 S2, No gallops, No rubs , No murmurs Gastrointestinal: Normal bowel sounds, Soft and benign - Studies Medications List Reviewed: Yes Assessment And Plan - Plan Acute kidney injury. started on HD plan for home HD , pending water test results HD tomorrow Klebsiella bacteremia On Doxycycline anemia F/U SPEP/UPEP on epogen , Cont IV iron plan to transfuse 1 PRBC with HD tomorrow if Hb <8.0 HTN controlled
[2019-08-01 11:58] LABS: Anisocytosis 1+; Blood Morphology Comment NOTED (NOT SEEN); Platelet Estimate ADEQ; Platelets, Giant PRESENT
[2019-08-01 13:45] VITALS: O2SAT 95
--- NOTE | 2019-08-01 15:05 | P.DS ---
Admission Date: 07/26/19 Discharge Date: 08/01/19 Primary Care Provider: Dr. Mahan; Cardiology-Dr. Fajardo Disposition: ROUTINE DISCHARGE Discharge Condition: GOOD Reason for Admission: Abnormal lab Consultations: Nephrology-Dr. De Los Santos Cardiology-Dr. Fajardo Surgery-Dr. Gaines Procedures: Renal US: COMPARISON: [facility] Protocol dated 07/26/2019 FINDINGS: Increased echogenicity is present involving both kidneys, mild. The right kidney measures 8.6 x 4.1 x 3.9 cm. No hydronephrosis, focal mass or perinephric fluid. The left kidney measures 11.2 x 4.8 x 4.3 cm. No hydronephrosis, focal mass or perinephric fluid. The urinary bladder is incompletely distended without gross abnormality seen. IMPRESSION: Mild increase in echogenicity of both kidneys suggests underlying medical renal disease. CT scan: FINDINGS: Tiny bilateral renal calculi. No hydronephrosis. . An ureteral calculus is not noted. A bladder calculus is not present. Mild bibasilar atelectasis with pleural thickening. Abdominal aorta has an AP diameter 3.4 centimeters. Left renal stent. Iliac stents 1 The liver, spleen, pancreas and right adrenal appear grossly normal. A small left adrenal adenoma There is no evidence of diverticulitis. A hysterectomy IMPRESSION: Tiny bilateral nonobstructing renal calculi 3.4 centimeter abdominal aortic aneurysm ECHO: EF 55% LEFT VENTRICULAR WALL MOTION: NORMAL. DOPPLER/COLOR FLOW: MILD TRICUSPID REGURGITATION. NORMAL RIGHT VENTRICULAR SYSTOLIC PRESSURE. MILD MITRAL REGURGITATION. COMMENTS: NORMAL LEFT VENTRICULAR EJECTION FRACTION. LEFT VENTRICULAR HYPERTROPHY. DILATED LEFT ATRIUM. MITRAL ANNULAR CALCIFICATION. MILD TRICUSPID REGURGITATION. MILD MITRAL REGURGITATION. Surgery: Date of Procedure: 07/27/2019 Surgeon: Armaan Gaines MD Preoperative Diagnosis: Acute renal failure. Postoperative Diagnosis: Acute renal failure. Procedure: Right IJ Tesio catheter placement and interpretation of intraoperative fluoroscopy. Estimated Blood Loss: Minimal. Specimen: None. Findings: Normal anatomy. Anesthesia: MAC. Complications: None. Medical Problem list: Acute on chronic renal failure stage 5 now end-stage renal disease on hemodialysis Hypertension Hyperlipidemia Chronic paroxysmally atrial fibrillation on chronic anti coagulation therapy CAD with prior stent Tobacco abuse COPD on chronic oxygen and steroid dependent Diabetes mellitus type 2 non-insulin dependent Anemia of chronic disease with iron did UTI with bacteremia, urine and blood culture positive for Klebsiella Hyperlipidemia 3.4 cm abdominal aortic aneurysm Brief History of Present Illness: 68-year-old female with history of atrial fibrillation on chronic anti coagulation therapy, CAD with recent stent, hypertension, COPD on chronic oxygen, hyperlipidemia, and diabetes mellitus type 2. Patient was seen last week by her PCP and licensed aircraft maintenance engineer. Patient had been hospitalized in May in [place] for an acute GA. She had a heart catheterization done at that time. She reports 1 stent was placed. She also reported abnormal function of her kidneys. She had lab drawn a on Friday. She saw her licensed aircraft maintenance engineer today. Worsening renal function was noted. She was sent to the ER for further evaluation. Patient reports with increased fatigue. She denies any chest pain, shortness of breath. She reports no history of kidney disease but lab shows chronic kidney disease. In the ER patient evaluated. Initial blood pressure 148/56. Pulse 68. On lab white count 7.3, hemoglobin 8.4. Platelet count of 231. Sodium 136 mom potassium 4.3. BUN of 19, creatinine 10 GFR 4. Glucose within normal range. Troponin 0.09. BNP elevated. Chest x-ray shows no evidence of infection. COPD changes noted abdomen shows no obstruction process to the kidneys. 3.4 cm abdominal aortic aneurysm noted. Patient was admitted for further evaluation and treatment. When I saw the patient ER, she appeared stable. Nephrology, cardiology and Surgery have been consulted. Her last dose of Eliquis and Brilinta was last night prior to admission. Hospital Course: Patient presented with acute on chronic renal failure stage 5. Patient had a recent heart catheterization and was followed by cardiology and nephrology. She was admitted for further evaluation and treatment. Patient seen by Cardiology and Nephrology. Patient required initiation of dialysis. Dialysis catheter was placed by surgery. Dialysis was started. Patient currently stable this time. Patient desired to have home dialysis. Home dialysis arranged. At discharge patient will continue with home dialysis every Friday, Friday and Friday. Recommend follow up with nephrology within 1 week to further address. Recommend recheck lab-BMP in 1 week to monitor her progress. Patient with hypertension. Blood pressure medication was adjusted during her stay. At discharge she will no longer take Norvasc. Hydralazine and carvedilol were adjusted. At discharge she will continue with hydralazine 25 mg 1 pill twice daily and carvedilol 25 mg 1 pill twice daily. Recommend to maintain blood pressures less 150/80. Further adjustment can be done by her PCP or cardiology. Patient with hyperlipidemia. At discharge she will continue with her medication Lipitor 40 daily. Patient with chronic paroxysmally atrial fibrillation on chronic anti coagulation therapy. This has remained stable. At discharge she will continue with amiodarone 200 mg daily and Eliquis 2.5 mg twice daily. Patient with CAD with recent prior stent. At discharge she will continue with Brilinta 90 mg twice daily. 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 This has remained stable. At discharge will continue with oxygen. She will also continue with her COPD medication-Symbicort 2 puffs twice daily and prednisone 10 mg daily. She will continue with home oxygen to maintain sats above 93%. Recommend follow up with her steaming cabinet tender to further address. Patient with tobacco abuse. Tobacco cessation addressed in detail. Will provide nicotine patch to help patient quit smoking. Patient with anemia of chronic disease Patient found to have iron deficiency. Patient received IV iron and Epogen. Epogen will be continued during dialysis. At discharge she will continue with iron supplementation twice daily and folic acid 1 mg daily. Recommend to recheck CBC in 2-4 weeks to monitor progress. Patient also presented with UTI and bacteremia. Urine and blood culture positive for Klebsiella. Repeat blood culture negative. At discharge she will continue with doxycycline 100 mg 1 pill twice daily for 10 more days. Recommend to recheck urine culture after that time to monitor resolution. Patient with GERD. At discharge she will continue with Pepcid 20 mg daily. Patient with diabetes mellitus type 2 non-insulin dependent. At discharge she will continue with Januvia 25 mg daily. Recommend to maintain blood sugars less 140 fasting and less than 200 after meals. Further adjustment can be done by her PCP. Patient has 3.4 cm abdominal aortic aneurysm. Recommend to follow up with cardiology to further monitor. Recommend to recheck ultrasound in 6-12 months to monitor stability. Vital Signs/Physical Exam: Temp Pulse Resp BP Pulse Ox 97 F 58 18 143/66 H 95 08/01/19 12:00 08/01/19 12:00 08/01/19 12:00 08/01/19 12:00 08/01/19 12:00 General: Alert, In no apparent distress, Oriented x3, Cooperative HEENT: Atraumatic Neck: Supple Respiratory: Clear to auscultation bilaterally, Normal air movement Cardiovascular: Normal pulses, Regular rate/rhythm Gastrointestinal: Normal bowel sounds, Soft and benign, Non-distended, No tenderness, No masses, No rebound, No guarding Musculoskeletal: No erythema, No tenderness, No warmth Integumentary: No tenderness/swelling, No erythema, No warmth, No cyanosis Neurological: Normal speech, Normal strength at 5/5 x4 extr, Normal tone, Normal affect Laboratory Data at Discharge: WBC 9.5 K/uL (4.3-10.9) D 08/01/19 05:19 Hgb 8.1 g/dL (12.0-15.0) L 08/01/19 05:19 Hct 25.3 % (36.0-45.0) L 08/01/19 05:19 Plt Count 184 K/uL (152-406) 08/01/19 05:19 PT 17.3 SECONDS (9.5-12.5) H 07/26/19 10:56 INR 1.49 07/26/19 10:56 Sodium 139 mmol/L (136-145) 07/30/19 08:01 Potassium 4.3 mmol/L (3.5-5.1) 07/30/19 08:01 BUN 50 mg/dL (7-18) H 07/30/19 08:01 Creatinine 5.39 mg/dL (0.55-1.3) H* D 07/30/19 08:01 Glucose 228 mg/dL (74-106) H 07/30/19 08:01 Magnesium 2.1 mg/dL (1.8-2.4) 07/30/19 08:01 Total Bilirubin 0.4 mg/dL (0.2-1.0) 07/26/19 10:56 AST 16 U/L (15-37) 07/26/19 10:56 ALT 14 U/L (12-78) 07/26/19 10:56 Alkaline Phosphatase 74 U/L (45-117) 07/26/19 10:56 Troponin I 0.09 ng/mL (0.0-0.045) H 07/27/19 00:20 Triglycerides 134 mg/dL (<150) 07/27/19 04:25 Cholesterol 98 mg/dL (<200) 07/27/19 04:25 HDL Cholesterol 33 mg/dL (40-60) L 07/27/19 04:25 Cholesterol/HDL Ratio 2.97 07/27/19 04:25 Lipase 185 U/L (73-393) 07/26/19 10:56 Home Medications: Amiodarone HCl [Cordarone*] 200 mg PO DAILY 07/26/19 Apixaban [Eliquis *] 2.5 mg PO BID 07/26/19 Atorvastatin Calcium [Lipitor] 40 mg PO BEDTIME 07/26/19 Budesonide/Formoterol Fumarate [Symbicort 160-4.5 Mcg Inhaler] 2 puff IH BID Famotidine [Pepcid*] 20 mg PO DAILY 07/26/19 Sitagliptin Phosphate [Januvia] 25 mg PO DAILY 07/26/19 predniSONE [Deltasone*] 10 mg PO DAILY 07/26/19 Carvedilol [Coreg*] 25 mg PO BID 6AM 6PM #60 tab 08/01/19 Docusate [Colace Cap*] 100 mg PO DAILY #30 cap 08/01/19 Doxycycline Hyclate 100 mg PO BID #20 tablet 08/01/19 Ferrous Sulfate [Iron] 325 mg PO BID #60 tablet 08/01/19 Folic Acid 1 mg PO DAILY #90 tablet 08/01/19 Hydralazine [Apresoline*] 25 mg PO BID #60 tab 08/01/19 Ticagrelor [Brilinta*] 90 mg PO BID #60 tablet 08/01/19 New Medications: Carvedilol [Coreg*] 25 mg PO BID 6AM 6PM #60 tab Docusate [Colace Cap*] 100 mg PO DAILY #30 cap Doxycycline Hyclate 100 mg PO BID #20 tablet Ferrous Sulfate [Iron] 325 mg PO BID #60 tablet Folic Acid 1 mg PO DAILY #90 tablet Hydralazine [Apresoline*] 25 mg PO BID #60 tab Ticagrelor [Brilinta*] 90 mg PO BID #60 tablet Patient Discharge Instructions: 1. Recommend follow up with her PCP in 1 week to follow up this hospitalization. 2. Patient presented with acute on chronic renal failure stage 5. Patient had a recent heart catheterization and was followed by cardiology and nephrology. She was admitted for further evaluation and treatment. Patient seen by Cardiology and Nephrology. Patient required initiation of dialysis. Dialysis catheter was placed by surgery. Dialysis was started. Patient currently stable this time. Patient desired to have home dialysis. Home dialysis arranged. At discharge patient will continue with home dialysis every Friday, Friday and Friday. Recommend follow up with nephrology within 1 week to further address. Recommend recheck lab-BMP in 1 week to monitor her progress. 3. Patient with hypertension. Blood pressure medication was adjusted during her stay. At discharge she will no longer take Norvasc. Hydralazine and carvedilol were adjusted. At discharge she will continue with hydralazine 25 mg 1 pill twice daily and carvedilol 25 mg 1 pill twice daily. Recommend to maintain blood pressures less 150/80. Further adjustment can be done by her PCP or cardiology. 4. Patient with hyperlipidemia. At discharge she will continue with her medication Lipitor 40 daily. 5. Patient with chronic paroxysmally atrial fibrillation on chronic anti coagulation therapy. This has remained stable. At discharge she will continue with amiodarone 200 mg daily and Eliquis 2.5 mg twice daily. 6. Patient with CAD with recent prior stent. At discharge she will continue with Brilinta 90 mg twice daily. 7. 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 This has remained stable. At discharge will continue with oxygen. She will also continue with her COPD medication-Symbicort 2 puffs twice daily and prednisone 10 mg daily. She will continue with home oxygen to maintain sats above 93%. Recommend follow up with her steaming cabinet tender to further address. 8. Patient with tobacco abuse. Tobacco cessation addressed in detail. Will provide nicotine patch to help patient quit smoking. 9. Patient with anemia of chronic disease Patient found to have iron deficiency. Patient received IV iron and Epogen. Epogen will be continued during dialysis. At discharge she will continue with iron supplementation twice daily and folic acid 1 mg daily. Recommend to recheck CBC in 2-4 weeks to monitor progress. 10. Patient also presented with UTI and bacteremia. Urine and blood culture positive for Klebsiella. Repeat blood culture negative. At discharge she will continue with doxycycline 100 mg 1 pill twice daily for 10 more days. Recommend to recheck urine culture after that time to monitor resolution. 11. Patient with GERD. At discharge she will continue with Pepcid 20 mg daily. 12. Patient with diabetes mellitus type 2 non-insulin dependent. At discharge she will continue with Januvia 25 mg daily. Recommend to maintain blood sugars less 140 fasting and less than 200 after meals. Further adjustment can be done by her PCP. 13. Patient has 3.4 cm abdominal aortic aneurysm. Recommend to follow up with cardiology to further monitor. Recommend to recheck ultrasound in 6-12 months to monitor stability. Diet: ADA Activity: Fall precautions Time spent managing pt's care (in minutes): 55
[2019-08-01 16:19] VITALS: BP 180/77; TEMP 97.9
[2019-08-03 23:41] LABS: Beta Globulin 24 HR Urine 25 %; Gamma Globulin, 24hr Urine 19 %; Interpretation: REPORT; Urine Alpha-2-Globulins, 24 Hr 20 %; Urine PEP Abn Protein Band1 REPORT; Urine Protein/Creat Ratio 24Hr 1736 mg/g creat (<115); Urine Total Volume 24 Hours 160 mL
--- OUTSIDE RECORDS SUMMARY | 2019-08-08 13:13 | XMS REPORT ---
:1950 Author Organization [facility] Address [address] [place] [address] Care Team Providers Name Role Phone IOANA PINEDA Unavailable Unavailable Problems This patient has no known problems. Allergies, Adverse Reactions, Alerts This patient has no known allergies or adverse reactions. Medications This patient has no known medications. Results Test Description Test Time Test Comments Text Results Atomic Results Result Comments POCT-GLUCOSE METER 2019-07-12 17:46:00 Test Item Value Reference Range Comments POC-GLUCOSE METER (BEAKER) (test 166 mg/dL 70-110 TESTED AT [address] stjc=2576) [place] [id number] POCT-GLUCOSE [id number] 12:21:00 Test Item Value Reference Range Comments POC-GLUCOSE METER (BEAKER) 208 mg/dL 70-110 TESTED AT [place] [id number] [facility] (test fccx=6857) [place] [id number] POCT-GLUCOSE [id number] 08:37:00 Test Item Value Reference Range Comments POC-GLUCOSE METER (BEAKER) 123 mg/dL 70-110 TESTED AT [address] (test haej=7542) [facility] [address] BASIC METABOLIC [id number] 07:25:00 Test Item Value Reference Range Comments SODIUM (BEAKER) (test 133 meq/L 136-145 dspk=003) POTASSIUM (BEAKER) (test 3.7 meq/L 3.5-5.1 xbry=517) CHLORIDE (BEAKER) (test 101 meq/L 98-107 lxcn=322) CO2 (BEAKER) (test 21 meq/L 22-29 jatg=126) BLOOD UREA NITROGEN 65 mg/dL 7-21 (BEAKER) (test xiyx=647) CREATININE (BEAKER) (test 3.63 mg/dL 0.57-1.25 gdtt=387) GLUCOSE RANDOM (BEAKER) 107 mg/dL 70-105 (test tsox=619) CALCIUM (BEAKER) (test 8.2 mg/dL 8.4-10.2 orzq=673) EGFR (BEAKER) (test 12 mL/min/1.73 sq m ESTIMATED GFR IS NOT pgqh=8310) ACCURATE CREATININE CLEARANCE IN PREDICTING GLOMERULAR FILTRATION RATE. ESTIMATED GFR IS NOT APPLICABLE FOR DIALYSIS PATIENTS. [id number] 07:23:00 Test Item Value Reference Range Comments PHOSPHORUS (BEAKER) (test ajck=724) 4.0 mg/dL 2.3-4.7 [id number] 07:23:00 Test Item Value Reference Range Comments MAGNESIUM (BEAKER) (test acla=547) 2.1 mg/dL 1.6-2.6 CALCIUM, [id number] 06:57:00 Test Item Value Reference Range Comments CALCIUM IONIZED (BEAKER) (test lqnw=119) 1.06 mmol/L 1.12-1.27 PH, BLOOD (BEAKER) (test inkx=5659) 7.41 B-TYPE NATRIURETIC FACTOR (BNP)2019-07-12 06:27:00 Test Item Value Reference Range Comments B-TYPE NATRIURETIC PEPTIDE (BEAKER) (test 1549 pg/mL 0-100 eekd=752) CBC W/PLT COUNT & AUTO [id number] 05:46:00 Test Item Value Reference Range Comments WHITE BLOOD CELL COUNT (BEAKER) (test zwua=898) 11.2 K/ L 3.5-10.5 RED BLOOD CELL COUNT (BEAKER) (test aoid=437) 2.72 M/ L 3.93-5.22 HEMOGLOBIN (BEAKER) (test aten=478) 8.1 GM/DL 11.2-15.7 HEMATOCRIT (BEAKER) (test qvvy=121) 25.6 % 34.1-44.9 MEAN CORPUSCULAR VOLUME (BEAKER) (test zlmy=453) 94.1 fL 79.4-94.8 MEAN CORPUSCULAR HEMOGLOBIN (BEAKER) (test 29.8 pg 25.6-32.2 rtzb=975) MEAN CORPUSCULAR HEMOGLOBIN CONC (BEAKER) (test 31.6 GM/DL 32.2-35.5 ryeq=057) RED CELL DISTRIBUTION WIDTH (BEAKER) (test 15.2 % 11.7-14.4 aphp=681) PLATELET COUNT (BEAKER) (test nwqr=040) 226 K/CU MM 150-450 MEAN PLATELET VOLUME (BEAKER) (test uhqf=497) 12.0 fL 9.4-12.3 NUCLEATED RED BLOOD CELLS (BEAKER) (test 0 /100 WBC 0-0 sfas=857) NEUTROPHILS RELATIVE PERCENT (BEAKER) (test 81 % dcql=423) LYMPHOCYTES RELATIVE PERCENT (BEAKER) (test 9 % delu=852) MONOCYTES RELATIVE PERCENT (BEAKER) (test 5 % ujnd=732) EOSINOPHILS RELATIVE PERCENT (BEAKER) (test 2 % xzyz=349) BASOPHILS RELATIVE PERCENT (BEAKER) (test 0 % qoix=826) NEUTROPHILS ABSOLUTE COUNT (BEAKER) (test 9.11 K/ L 1.56-6.13 nxaa=368) LYMPHOCYTES ABSOLUTE COUNT (BEAKER) (test 1.06 K/ L 1.18-3.74 hrsn=101) MONOCYTES ABSOLUTE COUNT (BEAKER) (test 0.61 K/ L 0.24-0.36 axij=038) EOSINOPHILS ABSOLUTE COUNT (BEAKER) (test 0.27 K/ L 0.04-0.36 zqed=483) BASOPHILS ABSOLUTE COUNT (BEAKER) (test 0.04 K/ L 0.01-0.08 ubgb=860) IMMATURE GRANULOCYTES-RELATIVE PERCENT (BEAKER) 1 % 0-1 (test fpbi=5708) POCT-GLUCOSE [id number] 23:24:00 Test Item Value Reference Range Comments POC-GLUCOSE METER (BEAKER) 115 mg/dL 70-110 TESTED AT [address] (test ejqe=1989) [place] [address] POCT-GLUCOSE [id number] 17:28:00 Test Item Value Reference Range Comments POC-GLUCOSE METER (BEAKER) 233 mg/dL 70-110 TESTED AT [address] (test tnoi=2485) [place] [address] POCT-GLUCOSE [id number] 08:05:00 Test Item Value Reference Range Comments POC-GLUCOSE METER (BEAKER) 207 mg/dL 70-110 TESTED AT [address] (test sqjc=7856) [place] [address] BASIC METABOLIC [id number] 05:43:00 Test Item Value Reference Range Comments SODIUM (BEAKER) (test 137 meq/L 136-145 xzjh=438) POTASSIUM (BEAKER) (test 4.0 meq/L 3.5-5.1 lvfh=892) CHLORIDE (BEAKER) (test 103 meq/L 98-107 fhdw=964) CO2 (BEAKER) (test 24 meq/L 22-29 nycm=026) BLOOD UREA NITROGEN 69 mg/dL 7-21 (BEAKER) (test sslf=831) CREATININE (BEAKER) (test 3.71 mg/dL 0.57-1.25 omdc=246) GLUCOSE RANDOM (BEAKER) 111 mg/dL 70-105 (test jnno=283) CALCIUM (BEAKER) (test 8.4 mg/dL 8.4-10.2 bywi=373) EGFR (BEAKER) (test 12 mL/min/1.73 sq m ESTIMATED GFR IS NOT wnpz=4672) ACCURATE CREATININE CLEARANCE IN PREDICTING GLOMERULAR FILTRATION RATE. ESTIMATED GFR IS NOT APPLICABLE FOR DIALYSIS PATIENTS. CALCIUM, [id number] 05:36:00 Test Item Value Reference Range Comments CALCIUM IONIZED (BEAKER) (test guik=563) 1.03 mmol/L 1.12-1.27 PH, BLOOD (BEAKER) (test bjch=2878) 7.43 URIC [id number] 05:32:00 Test Item Value Reference Range Comments URIC ACID (BEAKER) (test ixed=086) 9.9 mg/dL 2.6-7.2 [id number] 05:32:00 Test Item Value Reference Range Comments MAGNESIUM (BEAKER) (test nmpk=556) 2.1 mg/dL 1.6-2.6 [id number] 05:32:00 Test Item Value Reference Range Comments PHOSPHORUS (BEAKER) (test uven=774) 4.7 mg/dL 2.3-4.7 B-TYPE NATRIURETIC FACTOR (BNP)2019-07-11 05:29:00 Test Item Value Reference Range Comments B-TYPE NATRIURETIC PEPTIDE (BEAKER) (test 1730 pg/mL 0-100 fkyf=101) CBC W/PLT COUNT & AUTO [id number] 05:24:00 Test Item Value Reference Range Comments WHITE BLOOD CELL COUNT (BEAKER) (test uhux=609) 12.5 K/ L 3.5-10.5 RED BLOOD CELL COUNT (BEAKER) (test egbw=658) 2.83 M/ L 3.93-5.22 HEMOGLOBIN (BEAKER) (test ajif=549) 8.5 GM/DL 11.2-15.7 HEMATOCRIT (BEAKER) (test gaoe=822) 27.2 % 34.1-44.9 MEAN CORPUSCULAR VOLUME (BEAKER) (test jhvx=959) 96.1 fL 79.4-94.8 MEAN CORPUSCULAR HEMOGLOBIN (BEAKER) (test 30.0 pg 25.6-32.2 frob=919) MEAN CORPUSCULAR HEMOGLOBIN CONC (BEAKER) (test 31.3 GM/DL 32.2-35.5 pxrf=154) RED CELL DISTRIBUTION WIDTH (BEAKER) (test 15.1 % 11.7-14.4 balx=269) PLATELET COUNT (BEAKER) (test mppu=247) 213 K/CU MM 150-450 MEAN PLATELET VOLUME (BEAKER) (test wkfv=047) 11.8 fL 9.4-12.3 NUCLEATED RED BLOOD CELLS (BEAKER) (test 0 /100 WBC 0-0 zbgd=517) NEUTROPHILS RELATIVE PERCENT (BEAKER) (test 85 % labn=078) LYMPHOCYTES RELATIVE PERCENT (BEAKER) (test 8 % ksmc=895) MONOCYTES RELATIVE PERCENT (BEAKER) (test 5 % vtjo=505) EOSINOPHILS RELATIVE PERCENT (BEAKER) (test 1 % dnlg=270) BASOPHILS RELATIVE PERCENT (BEAKER) (test 0 % tfng=772) NEUTROPHILS ABSOLUTE COUNT (BEAKER) (test 10.56 K/ L 1.56-6.13 hcne=288) LYMPHOCYTES ABSOLUTE COUNT (BEAKER) (test 0.96 K/ L 1.18-3.74 gnvm=274) MONOCYTES ABSOLUTE COUNT (BEAKER) (test 0.60 K/ L 0.24-0.36 tllz=298) EOSINOPHILS ABSOLUTE COUNT (BEAKER) (test 0.18 K/ L 0.04-0.36 ryaa=225) BASOPHILS ABSOLUTE COUNT (BEAKER) (test 0.05 K/ L 0.01-0.08 fkud=812) IMMATURE GRANULOCYTES-RELATIVE PERCENT (BEAKER) 1 % 0-1 (test shrb=8681) POCT-GLUCOSE [id number] 21:48:00 Test Item Value Reference Range Comments POC-GLUCOSE METER (BEAKER) 130 mg/dL 70-110 TESTED AT [address] (test fklg=2987) [facility] [address] POCT-GLUCOSE [id number] 17:38:00 Test Item Value Reference Range Comments POC-GLUCOSE METER (BEAKER) 240 mg/dL 70-110 TESTED AT [address] (test kkap=4443) [facility] [address] MR, BRAIN, WITHOUT [id number] 13:28:00Reason for exam:->word finding difficultyFINAL REPORT MR, BRAIN, WITHOUT CONTRAST INDICATION: Altered mental statusword finding difficulty TECHNIQUE: Multiplanar , multisequence MR imaging of the brain was obtained. COMPARISON: None FINDINGS : Restricted diffusion with concomitant decreased signal on ADC and FLAIR hyperintensity within the right precentral gyrus in the left occipital lobe with concomitant flair hyperintensity compatible with small acute infarcts. No hemorrhagic conversion or significant mass effect. Brain parenchyma is normal in morphology. Midline structures are normally developed. Scattered T2/FLAIR hyperintense foci within the periventricular and subcortical white matter are nonspecific, however,statistically represent chronic microvascular ischemic changes. No hydrocephalus. Orbits are within normal limits. No obstructive paranasal sinus disease. 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 Signed: Julissa Duggan Verified Date/Time: 07/10/2019 13:28:15 Reading Location: [address] Neuro Reading Room POCT-GLUCOSE [id number] 12:10:00 Test Item Value Reference Range Comments POC-GLUCOSE METER (BEAKER) 261 mg/dL 70-110 TESTED AT [address] (test hhit=5257) [facility] [address] POCT-GLUCOSE [id number] 08:01:00 Test Item Value Reference Range Comments POC-GLUCOSE METER (BEAKER) 119 mg/dL 70-110 TESTED AT [address] (test egas=5826) [facility] [address] BASIC METABOLIC [id number] 06:22:00 Test Item Value Reference Range Comments SODIUM (BEAKER) (test 135 meq/L 136-145 sxmt=569) POTASSIUM (BEAKER) (test 3.6 meq/L 3.5-5.1 wdtx=801) CHLORIDE (BEAKER) (test 103 meq/L 98-107 unmn=185) CO2 (BEAKER) (test 21 meq/L 22-29 yndx=396) BLOOD UREA NITROGEN 71 mg/dL 7-21 (BEAKER) (test mcvk=797) CREATININE (BEAKER) (test 3.62 mg/dL 0.57-1.25 lueo=078) GLUCOSE RANDOM (BEAKER) 102 mg/dL 70-105 (test vnpf=796) CALCIUM (BEAKER) (test 8.2 mg/dL 8.4-10.2 ljdu=821) EGFR (BEAKER) (test 12 mL/min/1.73 sq m ESTIMATED GFR IS NOT suwo=6802) ACCURATE CREATININE CLEARANCE IN PREDICTING GLOMERULAR FILTRATION RATE. ESTIMATED GFR IS NOT APPLICABLE FOR DIALYSIS PATIENTS. [id number] 06:21:00 Test Item Value Reference Range Comments MAGNESIUM (BEAKER) (test jabo=360) 2.0 mg/dL 1.6-2.6 CBC W/PLT COUNT & AUTO [id number] 06:10:00 Test Item Value Reference Range Comments WHITE BLOOD CELL COUNT (BEAKER) (test xzdf=695) 13.1 K/ L 3.5-10.5 RED BLOOD CELL COUNT (BEAKER) (test chgu=352) 2.70 M/ L 3.93-5.22 HEMOGLOBIN (BEAKER) (test dshq=436) 8.2 GM/DL 11.2-15.7 HEMATOCRIT (BEAKER) (test poiy=719) 25.4 % 34.1-44.9 MEAN CORPUSCULAR VOLUME (BEAKER) (test tmts=848) 94.1 fL 79.4-94.8 MEAN CORPUSCULAR HEMOGLOBIN (BEAKER) (test 30.4 pg 25.6-32.2 lyzz=101) MEAN CORPUSCULAR HEMOGLOBIN CONC (BEAKER) (test 32.3 GM/DL 32.2-35.5 rchp=698) RED CELL DISTRIBUTION WIDTH (BEAKER) (test 14.9 % 11.7-14.4 zglr=494) PLATELET COUNT (BEAKER) (test xofu=585) 231 K/CU MM 150-450 MEAN PLATELET VOLUME (BEAKER) (test cgfw=301) 12.2 fL 9.4-12.3 NUCLEATED RED BLOOD CELLS (BEAKER) (test 0 /100 WBC 0-0 fksz=636) NEUTROPHILS RELATIVE PERCENT (BEAKER) (test 80 % rzmd=018) LYMPHOCYTES RELATIVE PERCENT (BEAKER) (test 10 % jlow=350) MONOCYTES RELATIVE PERCENT (BEAKER) (test 6 % vmjx=352) EOSINOPHILS RELATIVE PERCENT (BEAKER) (test 2 % nhdb=854) BASOPHILS RELATIVE PERCENT (BEAKER) (test 1 % cyfz=295) NEUTROPHILS ABSOLUTE COUNT (BEAKER) (test 10.50 K/ L 1.56-6.13 uqwt=467) LYMPHOCYTES ABSOLUTE COUNT (BEAKER) (test 1.32 K/ L 1.18-3.74 kdvw=187) MONOCYTES ABSOLUTE COUNT (BEAKER) (test 0.72 K/ L 0.24-0.36 otjf=958) EOSINOPHILS ABSOLUTE COUNT (BEAKER) (test 0.24 K/ L 0.04-0.36 ynhb=533) BASOPHILS ABSOLUTE COUNT (BEAKER) (test 0.06 K/ L 0.01-0.08 wlrc=178) IMMATURE GRANULOCYTES-RELATIVE PERCENT (BEAKER) 2 % 0-1 (test amih=2892) RAD, CHEST, 1 VIEW, NON [id number] 23:46:00Reason for exam:->increased coughShould this be performed at the bedside?->YesFINAL REPORT RAD, CHEST, 1 VIEW, NON DEPT INDICATION: increased cough COMPARISON: Prior day's exam FINDINGS: Portable frontal view of the chest. IMPRESSION: Lungs and pleura: Increased left retrocardiac airspace opacity, possibly related to partial left lower lobe collapse however superimposed infection cannot be excluded. Small left pleural effusion. Unchanged biapical pleural parenchymal scarring. No pneumothorax.Heart and mediastinum: Stable contours. Additional findings: None. Signed: Erica Houort Verified Date/ Time: 07/09/2019 23:46:51 POCT-GLUCOSE [id number] 21:27:00 Test Item Value Reference Range Comments POC-GLUCOSE METER (BEAKER) 168 mg/dL 70-110 TESTED AT [address] (test jpzo=0108) [facility] [address] POCT-GLUCOSE [id number] 17:26:00 Test Item Value Reference Range Comments POC-GLUCOSE METER (BEAKER) 263 mg/dL 70-110 TESTED AT [address] (test zosa=0707) [facility] [address] POCT-GLUCOSE [id number] 12:02:00 Test Item Value Reference Range Comments POC-GLUCOSE METER (BEAKER) 228 mg/dL 70-110 TESTED AT [address] (test ibtc=2803) [facility] [address] POCT-GLUCOSE [id number] 08:08:00 Test Item Value Reference Range Comments POC-GLUCOSE METER (BEAKER) 134 mg/dL 70-110 TESTED AT [address] (test pbea=4663) [facility] [address] CALCIUM, [id number] 08:03:00 Test Item Value Reference Range Comments CALCIUM IONIZED (BEAKER) (test ryhh=544) 0.98 mmol/L 1.12-1.27 PH, BLOOD (BEAKER) (test prtq=1146) 7.50 COMPREHENSIVE METABOLIC [id number] 07:11:00 Test Item Value Reference Range Comments TOTAL PROTEIN (BEAKER) 5.6 gm/dL 6.0-8.3 (test rbxx=651) ALBUMIN (BEAKER) (test 2.7 g/dL 3.5-5.0 chdo=6450) ALKALINE PHOSPHATASE 63 U/L 40-150 (BEAKER) (test bpfb=740) BILIRUBIN TOTAL (BEAKER) 0.4 mg/dL 0.2-1.2 (test fpcp=399) SODIUM (BEAKER) (test 138 meq/L 136-145 bnqf=973) POTASSIUM (BEAKER) (test 3.6 meq/L 3.5-5.1 pilv=374) CHLORIDE (BEAKER) (test 103 meq/L 98-107 zfyd=113) CO2 (BEAKER) (test 23 meq/L 22-29 imyr=094) BLOOD UREA NITROGEN 73 mg/dL 7-21 (BEAKER) (test mobi=750) CREATININE (BEAKER) (test 3.45 mg/dL 0.57-1.25 ljyc=972) GLUCOSE RANDOM (BEAKER) 126 mg/dL 70-105 (test cxqt=506) CALCIUM (BEAKER) (test 8.3 mg/dL 8.4-10.2 llwb=940) AST (SGOT) (BEAKER) (test 26 U/L 5-34 uiym=363) ALT (SGPT) (BEAKER) (test 15 U/L 6-55 gbqg=988) EGFR (BEAKER) (test 13 mL/min/1.73 sq m ESTIMATED GFR IS NOT qecg=6444) ACCURATE CREATININE CLEARANCE IN PREDICTING GLOMERULAR FILTRATION RATE. ESTIMATED GFR IS NOT APPLICABLE FOR DIALYSIS PATIENTS. [id number] 07:00:00 Test Item Value Reference Range Comments PHOSPHORUS (BEAKER) (test gnob=405) 3.8 mg/dL 2.3-4.7 [id number] 07:00:00 Test Item Value Reference Range Comments MAGNESIUM (BEAKER) (test boxa=694) 2.1 mg/dL 1.6-2.6 CBC W/PLT COUNT & AUTO [id number] 06:33:00 Test Item Value Reference Range Comments WHITE BLOOD CELL COUNT (BEAKER) (test uhpi=595) 14.4 K/ L 3.5-10.5 RED BLOOD CELL COUNT (BEAKER) (test olfg=583) 2.84 M/ L 3.93-5.22 HEMOGLOBIN (BEAKER) (test ywff=356) 8.5 GM/DL 11.2-15.7 HEMATOCRIT (BEAKER) (test dfkf=502) 26.2 % 34.1-44.9 MEAN CORPUSCULAR VOLUME (BEAKER) (test tdqu=199) 92.3 fL 79.4-94.8 MEAN CORPUSCULAR HEMOGLOBIN (BEAKER) (test 29.9 pg 25.6-32.2 voaj=616) MEAN CORPUSCULAR HEMOGLOBIN CONC (BEAKER) (test 32.4 GM/DL 32.2-35.5 lbzj=744) RED CELL DISTRIBUTION WIDTH (BEAKER) (test 14.7 % 11.7-14.4 rnsz=465) PLATELET COUNT (BEAKER) (test qiwy=514) 243 K/CU MM 150-450 MEAN PLATELET VOLUME (BEAKER) (test zbgu=200) 12.6 fL 9.4-12.3 NUCLEATED RED BLOOD CELLS (BEAKER) (test 0 /100 WBC 0-0 axez=412) NEUTROPHILS RELATIVE PERCENT (BEAKER) (test 82 % yqbh=300) LYMPHOCYTES RELATIVE PERCENT (BEAKER) (test 8 % zskx=011) MONOCYTES RELATIVE PERCENT (BEAKER) (test 7 % uyml=348) EOSINOPHILS RELATIVE PERCENT (BEAKER) (test 2 % msjy=829) BASOPHILS RELATIVE PERCENT (BEAKER) (test 0 % ynnj=515) NEUTROPHILS ABSOLUTE COUNT (BEAKER) (test 11.77 K/ L 1.56-6.13 odrr=830) LYMPHOCYTES ABSOLUTE COUNT (BEAKER) (test 1.08 K/ L 1.18-3.74 pzkx=803) MONOCYTES ABSOLUTE COUNT (BEAKER) (test 0.98 K/ L 0.24-0.36 aebj=628) EOSINOPHILS ABSOLUTE COUNT (BEAKER) (test 0.31 K/ L 0.04-0.36 gwkk=998) BASOPHILS ABSOLUTE COUNT (BEAKER) (test 0.04 K/ L 0.01-0.08 plda=313) IMMATURE GRANULOCYTES-RELATIVE PERCENT (BEAKER) 2 % 0-1 (test svhk=5394) POCT-GLUCOSE [id number] 21:30:00 Test Item Value Reference Range Comments POC-GLUCOSE METER (BEAKER) 196 mg/dL 70-110 TESTED AT [address] (test vdcv=3179) [place] [id number] POCT-GLUCOSE [id number] 17:34:00 Test Item Value Reference Range Comments POC-GLUCOSE METER (BEAKER) 234 mg/dL 70-110 TESTED AT [address] (test hxcm=2527) [place] [address] DIGOXIN [id number] 12:51:00 Test Item Value Reference Range Comments DIGOXIN LEVEL (BEAKER) (test fdzf=928) 0.9 ng/mL 0.8-2.0 POCT-GLUCOSE [id number] 11:52:00 Test Item Value Reference Range Comments POC-GLUCOSE METER (BEAKER) 222 mg/dL 70-110 TESTED AT [address] (test lana=5561) [place] [id number] POCT-GLUCOSE [id number] 08:40:00 Test Item Value Reference Range Comments POC-GLUCOSE METER (BEAKER) 120 mg/dL 70-110 TESTED AT [facility] [address] (test sdvo=4472) [place] [address] CALCIUM, [id number] 07:04:00 Test Item Value Reference Range Comments CALCIUM IONIZED (BEAKER) (test xqpy=706) 1.07 mmol/L 1.12-1.27 PH, BLOOD (BEAKER) (test nlde=9603) 7.42 CBC W/PLT COUNT & AUTO [id number] 06:48:00 Test Item Value Reference Range Comments WHITE BLOOD CELL COUNT (BEAKER) (test hsfo=720) 14.3 K/ L 3.5-10.5 RED BLOOD CELL COUNT (BEAKER) (test cukd=871) 3.03 M/ L 3.93-5.22 HEMOGLOBIN (BEAKER) (test rfoq=056) 9.0 GM/DL 11.2-15.7 HEMATOCRIT (BEAKER) (test wlfb=719) 28.2 % 34.1-44.9 MEAN CORPUSCULAR VOLUME (BEAKER) (test abtt=817) 93.1 fL 79.4-94.8 MEAN CORPUSCULAR HEMOGLOBIN (BEAKER) (test 29.7 pg 25.6-32.2 odhz=627) MEAN CORPUSCULAR HEMOGLOBIN CONC (BEAKER) (test 31.9 GM/DL 32.2-35.5 wbhn=816) RED CELL DISTRIBUTION WIDTH (BEAKER) (test 14.7 % 11.7-14.4 hdod=088) PLATELET COUNT (BEAKER) (test whge=398) 257 K/CU MM 150-450 MEAN PLATELET VOLUME (BEAKER) (test puei=305) 12.2 fL 9.4-12.3 NUCLEATED RED BLOOD CELLS (BEAKER) (test 0 /100 WBC 0-0 nbsu=939) NEUTROPHILS RELATIVE PERCENT (BEAKER) (test 83 % pclh=922) LYMPHOCYTES RELATIVE PERCENT (BEAKER) (test 7 % afdl=087) MONOCYTES RELATIVE PERCENT (BEAKER) (test 6 % pkjy=791) EOSINOPHILS RELATIVE PERCENT (BEAKER) (test 2 % fqne=305) BASOPHILS RELATIVE PERCENT (BEAKER) (test 0 % skao=626) NEUTROPHILS ABSOLUTE COUNT (BEAKER) (test 11.82 K/ L 1.56-6.13 rblj=170) LYMPHOCYTES ABSOLUTE COUNT (BEAKER) (test 1.01 K/ L 1.18-3.74 djia=384) MONOCYTES ABSOLUTE COUNT (BEAKER) (test 0.89 K/ L 0.24-0.36 oxol=679) EOSINOPHILS ABSOLUTE COUNT (BEAKER) (test 0.26 K/ L 0.04-0.36 tdlj=773) BASOPHILS ABSOLUTE COUNT (BEAKER) (test 0.02 K/ L 0.01-0.08 smwo=531) IMMATURE GRANULOCYTES-RELATIVE PERCENT (BEAKER) 2 % 0-1 (test gksh=4165) CREATINE KINASE (CK)2019-07-08 06:22:00 Test Item Value Reference Range Comments CREATINE KINASE TOTAL (BEAKER) (test qwxq=819) 18 U/L 29-200 COMPREHENSIVE METABOLIC [id number] 06:22:00 Test Item Value Reference Range Comments TOTAL PROTEIN (BEAKER) 5.6 gm/dL 6.0-8.3 (test uaog=241) ALBUMIN (BEAKER) (test 2.7 g/dL 3.5-5.0 munx=5881) ALKALINE PHOSPHATASE 58 U/L 40-150 (BEAKER) (test vwqg=666) BILIRUBIN TOTAL (BEAKER) 0.5 mg/dL 0.2-1.2 (test hdox=244) SODIUM (BEAKER) (test 136 meq/L 136-145 udbe=917) POTASSIUM (BEAKER) (test 3.6 meq/L 3.5-5.1 yqeh=875) CHLORIDE (BEAKER) (test 103 meq/L 98-107 kctt=589) CO2 (BEAKER) (test 23 meq/L 22-29 hjsb=658) BLOOD UREA NITROGEN 80 mg/dL 7-21 (BEAKER) (test crzg=629) CREATININE (BEAKER) (test 3.10 mg/dL 0.57-1.25 tmyd=933) GLUCOSE RANDOM (BEAKER) 107 mg/dL 70-105 (test edfs=877) CALCIUM (BEAKER) (test 8.3 mg/dL 8.4-10.2 zpjj=477) AST (SGOT) (BEAKER) (test 16 U/L 5-34 ftlx=212) ALT (SGPT) (BEAKER) (test 10 U/L 6-55 pxdp=022) EGFR (BEAKER) (test 15 mL/min/1.73 sq m ESTIMATED GFR IS NOT yqtq=1818) ACCURATE CREATININE CLEARANCE IN PREDICTING GLOMERULAR FILTRATION RATE. ESTIMATED GFR IS NOT APPLICABLE FOR DIALYSIS PATIENTS. [id number] 06:20:00 Test Item Value Reference Range Comments PHOSPHORUS (BEAKER) (test kffa=515) 4.3 mg/dL 2.3-4.7 [id number] 06:20:00 Test Item Value Reference Range Comments MAGNESIUM (BEAKER) (test wuba=919) 2.2 mg/dL 1.6-2.6 B-TYPE NATRIURETIC FACTOR (BNP)2019-07-08 06:16:00 Test Item Value Reference Range Comments B-TYPE NATRIURETIC PEPTIDE (BEAKER) (test 1115 pg/mL 0-100 jbud=996) POCT-GLUCOSE [id number] 22:01:00 Test Item Value Reference Range Comments POC-GLUCOSE METER (BEAKER) 144 mg/dL 70-110 TESTED AT [facility] [address] [facility] (test oise=1616) [facility] [address] CREATININE, RANDOM [id number] 21:14:00 Test Item Value Reference Range Comments CREATININE URINE (BEAKER) (test oftk=460) 63.2 mg/dL Reference Range: No NormalsPROTEIN, RANDOM [id number] 21:14:00 Test Item Value Reference Range Comments PROTEIN, URINE (BEAKER) (test lsaw=9311) 23 mg/dL 0-14 SODIUM, RANDOM [id number] 21:14:00 Test Item Value Reference Range Comments SODIUM URINE (BEAKER) (test nuea=595) 29 meq/L Reference Range: No NormalsEOSINOPHIL SMEAR, [id number] 20:57:00 Test Item Value Reference Range Comments EOSINOPHIL SMEAR, URINE (BEAKER) (test No EOS seen No EOS seen zulr=4547) URINALYSIS W/ [id number] 20:21:00 Test Item Value Reference Range Comments COLOR (BEAKER) (test sfcn=587) Yellow CLARITY (BEAKER) (test yjnd=752) Hazy SPECIFIC GRAVITY UA (BEAKER) (test rtrj=877) 1.012 1.001-1.035 PH UA (BEAKER) (test towf=139) 5.5 5.0-8.0 PROTEIN UA (BEAKER) (test jgwm=161) 20 mg/dL Negative GLUCOSE UA (BEAKER) (test tgcw=742) Negative Negative KETONES UA (BEAKER) (test jjwf=751) Negative Negative BILIRUBIN UA (BEAKER) (test ywfv=014) Negative Negative BLOOD UA (BEAKER) (test rjzz=175) Trace Negative NITRITE UA (BEAKER) (test otiw=090) Negative Negative LEUKOCYTE ESTERASE UA (BEAKER) (test saba=495) Large Negative UROBILINOGEN UA (BEAKER) (test qjrn=147) 0.2 mg/dL 0.2-1.0 RBC UA (BEAKER) (test emhs=055) 1 /HPF WBC UA (BEAKER) (test nfzq=544) 31 /HPF MUCUS (BEAKER) (test ndse=9672) Rare SQUAMOUS EPITHELIAL (BEAKER) (test purd=565) 2 /HPF YEAST (BEAKER) (test uocx=4077) Few SOURCE(BEAKER) (test ufvn=1971) POCT-GLUCOSE [id number] 17:32:00 Test Item Value Reference Range Comments POC-GLUCOSE METER (BEAKER) 168 mg/dL 70-110 TESTED AT [facility] [address] [place] [address] (test muvh=5718) [facility] [address] B-TYPE NATRIURETIC FACTOR (BNP)2019-07-07 17:05:00 Test Item Value Reference Range Comments B-TYPE NATRIURETIC PEPTIDE (BEAKER) (test 957 pg/mL 0-100 hclk=628) BASIC METABOLIC [id number] 15:29:00 Test Item Value Reference Range Comments SODIUM (BEAKER) (test 134 meq/L 136-145 mijy=472) POTASSIUM (BEAKER) (test 4.0 meq/L 3.5-5.1 Specimen slightly pstx=099) hemolyzed CHLORIDE (BEAKER) (test 101 meq/L 98-107 cblf=568) CO2 (BEAKER) (test 24 meq/L 22-29 rafu=157) BLOOD UREA NITROGEN 85 mg/dL 7-21 (BEAKER) (test ybqf=074) CREATININE (BEAKER) (test 3.17 mg/dL 0.57-1.25 Specimen slightly hczu=961) hemolyzed GLUCOSE RANDOM (BEAKER) 196 mg/dL 70-105 (test odxs=298) CALCIUM (BEAKER) (test 8.2 mg/dL 8.4-10.2 lttj=728) EGFR (BEAKER) (test 14 mL/min/1.73 sq m ESTIMATED GFR IS NOT yrty=0212) ACCURATE CREATININE CLEARANCE IN PREDICTING GLOMERULAR FILTRATION RATE. ESTIMATED GFR IS NOT APPLICABLE FOR DIALYSIS PATIENTS. [id number] 15:20:00 Test Item Value Reference Range Comments MAGNESIUM (BEAKER) (test 2.2 mg/dL 1.6-2.6 Specimen slightly hemolyzed trfv=367) [id number] 15:20:00 Test Item Value Reference Range Comments PHOSPHORUS (BEAKER) (test 4.4 mg/dL 2.3-4.7 Specimen slightly hemolyzed siph=256) CBC W/PLT COUNT & AUTO [id number] 15:13:00 Test Item Value Reference Range Comments WHITE BLOOD CELL COUNT (BEAKER) (test tqqt=171) 12.9 K/ L 3.5-10.5 RED BLOOD CELL COUNT (BEAKER) (test jkqr=815) 3.02 M/ L 3.93-5.22 HEMOGLOBIN (BEAKER) (test plse=681) 9.1 GM/DL 11.2-15.7 HEMATOCRIT (BEAKER) (test qyau=390) 28.2 % 34.1-44.9 MEAN CORPUSCULAR VOLUME (BEAKER) (test nrfq=034) 93.4 fL 79.4-94.8 MEAN CORPUSCULAR HEMOGLOBIN (BEAKER) (test 30.1 pg 25.6-32.2 lrep=624) MEAN CORPUSCULAR HEMOGLOBIN CONC (BEAKER) (test 32.3 GM/DL 32.2-35.5 lmam=230) RED CELL DISTRIBUTION WIDTH (BEAKER) (test 14.7 % 11.7-14.4 zfbd=814) PLATELET COUNT (BEAKER) (test vzog=629) 250 K/CU MM 150-450 MEAN PLATELET VOLUME (BEAKER) (test ysfi=859) 12.2 fL 9.4-12.3 NUCLEATED RED BLOOD CELLS (BEAKER) (test 0 /100 WBC 0-0 izwz=086) NEUTROPHILS RELATIVE PERCENT (BEAKER) (test 91 % ihub=142) LYMPHOCYTES RELATIVE PERCENT (BEAKER) (test 4 % qrzo=665) MONOCYTES RELATIVE PERCENT (BEAKER) (test 3 % ytqs=463) EOSINOPHILS RELATIVE PERCENT (BEAKER) (test 1 % gxmu=406) BASOPHILS RELATIVE PERCENT (BEAKER) (test 0 % svzm=442) NEUTROPHILS ABSOLUTE COUNT (BEAKER) (test 11.70 K/ L 1.56-6.13 omwt=692) LYMPHOCYTES ABSOLUTE COUNT (BEAKER) (test 0.51 K/ L 1.18-3.74 spoo=923) MONOCYTES ABSOLUTE COUNT (BEAKER) (test 0.41 K/ L 0.24-0.36 slfv=460) EOSINOPHILS ABSOLUTE COUNT (BEAKER) (test 0.10 K/ L 0.04-0.36 fpcq=733) BASOPHILS ABSOLUTE COUNT (BEAKER) (test 0.02 K/ L 0.01-0.08 ziri=457) IMMATURE GRANULOCYTES-RELATIVE PERCENT (BEAKER) 1 % 0-1 (test ostm=3938) CALCIUM, [id number] 15:11:00 Test Item Value Reference Range Comments CALCIUM IONIZED (BEAKER) (test jqos=379) 1.08 mmol/L 1.12-1.27 PH, BLOOD (BEAKER) (test vfdi=2811) 7.47 POCT-GLUCOSE [id number] 12:18:00 Test Item Value Reference Range Comments POC-GLUCOSE METER (BEAKER) 213 mg/dL 70-110 TESTED AT [address] (test misa=9559) [place] [address] POCT-GLUCOSE [id number] 07:33:00 Test Item Value Reference Range Comments POC-GLUCOSE METER (BEAKER) 145 mg/dL 70-110 TESTED AT [address] (test guwr=3647) [place] [address] POCT-GLUCOSE [id number] 23:40:00 Test Item Value Reference Range Comments POC-GLUCOSE METER (BEAKER) 139 mg/dL 70-110 TESTED AT [address] (test kpfu=9000) [place] [address] BASIC METABOLIC [id number] 18:04:00 Test Item Value Reference Range Comments SODIUM (BEAKER) (test 133 meq/L 136-145 pqrq=439) POTASSIUM (BEAKER) (test 4.2 meq/L 3.5-5.1 utet=065) CHLORIDE (BEAKER) (test 98 meq/L 98-107 xzkz=466) CO2 (BEAKER) (test 23 meq/L 22-29 mdoh=880) BLOOD UREA NITROGEN 93 mg/dL 7-21 (BEAKER) (test ybdy=972) CREATININE (BEAKER) (test 3.14 mg/dL 0.57-1.25 kpwt=814) GLUCOSE RANDOM (BEAKER) 247 mg/dL 70-105 (test eonk=822) CALCIUM (BEAKER) (test 8.8 mg/dL 8.4-10.2 ibox=629) EGFR (BEAKER) (test 15 mL/min/1.73 sq m ESTIMATED GFR IS NOT etuj=3819) ACCURATE CREATININE CLEARANCE IN PREDICTING GLOMERULAR FILTRATION RATE. ESTIMATED GFR IS NOT APPLICABLE FOR DIALYSIS PATIENTS. [id number] 18:02:00 Test Item Value Reference Range Comments PHOSPHORUS (BEAKER) (test xcqd=441) 4.6 mg/dL 2.3-4.7 [id number] 18:02:00 Test Item Value Reference Range Comments MAGNESIUM (BEAKER) (test kifi=218) 2.3 mg/dL 1.6-2.6 B-TYPE NATRIURETIC FACTOR (BNP)2019-07-06 18:02:00 Test Item Value Reference Range Comments B-TYPE NATRIURETIC PEPTIDE (BEAKER) (test 570 pg/mL 0-100 cxjx=939) POCT-GLUCOSE [id number] 17:39:00 Test Item Value Reference Range Comments POC-GLUCOSE METER (BEAKER) 212 mg/dL 70-110 TESTED AT [facility] [address] [facility] (test ejha=2690) [facility] [address] CALCIUM, [id number] 17:04:00 Test Item Value Reference Range Comments CALCIUM IONIZED (BEAKER) (test ohha=871) 1.02 mmol/L 1.12-1.27 PH, BLOOD (BEAKER) (test kbcj=5551) 7.39 CBC W/PLT COUNT & AUTO [id number] 16:58:00 Test Item Value Reference Range Comments WHITE BLOOD CELL COUNT (BEAKER) (test pvjp=238) 13.4 K/ L 3.5-10.5 RED BLOOD CELL COUNT (BEAKER) (test zzpe=374) 3.48 M/ L 3.93-5.22 HEMOGLOBIN (BEAKER) (test lsss=314) 10.4 GM/DL 11.2-15.7 HEMATOCRIT (BEAKER) (test lbzp=883) 31.6 % 34.1-44.9 MEAN CORPUSCULAR VOLUME (BEAKER) (test cvem=177) 90.8 fL 79.4-94.8 MEAN CORPUSCULAR HEMOGLOBIN (BEAKER) (test 29.9 pg 25.6-32.2 gsye=182) MEAN CORPUSCULAR HEMOGLOBIN CONC (BEAKER) (test 32.9 GM/DL 32.2-35.5 zxpu=623) RED CELL DISTRIBUTION WIDTH (BEAKER) (test 14.6 % 11.7-14.4 pycv=123) PLATELET COUNT (BEAKER) (test rtwk=865) 262 K/CU MM 150-450 MEAN PLATELET VOLUME (BEAKER) (test osrn=591) 12.2 fL 9.4-12.3 NUCLEATED RED BLOOD CELLS (BEAKER) (test 0 /100 WBC 0-0 zwxw=105) NEUTROPHILS RELATIVE PERCENT (BEAKER) (test 90 % aopx=322) LYMPHOCYTES RELATIVE PERCENT (BEAKER) (test 4 % wsur=271) MONOCYTES RELATIVE PERCENT (BEAKER) (test 4 % rrxq=104) EOSINOPHILS RELATIVE PERCENT (BEAKER) (test 1 % imvl=000) BASOPHILS RELATIVE PERCENT (BEAKER) (test 0 % tmzv=476) NEUTROPHILS ABSOLUTE COUNT (BEAKER) (test 11.98 K/ L 1.56-6.13 mdng=177) LYMPHOCYTES ABSOLUTE COUNT (BEAKER) (test 0.50 K/ L 1.18-3.74 jzng=769) MONOCYTES ABSOLUTE COUNT (BEAKER) (test 0.49 K/ L 0.24-0.36 cktb=783) EOSINOPHILS ABSOLUTE COUNT (BEAKER) (test 0.11 K/ L 0.04-0.36 tfsh=331) BASOPHILS ABSOLUTE COUNT (BEAKER) (test 0.02 K/ L 0.01-0.08 hbbh=625) IMMATURE GRANULOCYTES-RELATIVE PERCENT (BEAKER) 2 % 0-1 (test nzuq=4966) POCT-GLUCOSE [id number] 08:37:00 Test Item Value Reference Range Comments POC-GLUCOSE METER (BEAKER) 153 mg/dL 70-110 TESTED AT [facility] [address] [facility] (test viuq=1589) [facility] [address] POCT-GLUCOSE [id number] 21:38:00 Test Item Value Reference Range Comments POC-GLUCOSE METER (BEAKER) 156 mg/dL 70-110 TESTED AT [address] (test geqq=3029) [facility] [address] POCT-GLUCOSE [id number] 17:54:00 Test Item Value Reference Range Comments POC-GLUCOSE METER (BEAKER) 233 mg/dL 70-110 TESTED AT [address] (test qjlp=9987) [place] [id number] RAD, CHEST, 2 [id number] 17:50:00Reason for exam:->productive cough, new RLL infiltrate on 1 v CXRShould this be performed at the bedside?-> NoFINAL REPORT INDICATION: productive cough, new RLL infiltrate on 1 v CXR COMPARISON: July 04. TECHNIQUE: Chest radiograph, two views, PA and lateral. FINDINGS / IMPRESSION:Patchy opacity in the right lower lung has nearly resolved.Short-term resolution suggests aspiration.Heart shadow enlargement. No pulmonary edema or definite pleural effusion.Osseous structures unremarkable. Signed: Daniel Miranda MDReport Verified Date/Time: 07/05/2019 17:50:57 Reading Location: [facility] Reading Room POCT-GLUCOSE [id number] 12:27:00 Test Item Value Reference Range Comments POC-GLUCOSE METER (BEAKER) 299 mg/dL 70-110 TESTED AT [address] (test lmoc=0482) [facility] [address] POCT-GLUCOSE [id number] 08:00:00 Test Item Value Reference Range Comments POC-GLUCOSE METER (BEAKER) 118 mg/dL 70-110 TESTED AT [address] (test dium=7707) [facility] [address] [id number] 07:40:00 Test Item Value Reference Range Comments MAGNESIUM (BEAKER) (test gqak=242) 2.3 mg/dL 1.6-2.6 BASIC METABOLIC [id number] 06:40:00 Test Item Value Reference Range Comments SODIUM (BEAKER) (test 135 meq/L 136-145 nnku=240) POTASSIUM (BEAKER) (test 3.9 meq/L 3.5-5.1 gmkp=262) CHLORIDE (BEAKER) (test 99 meq/L 98-107 xfhm=317) CO2 (BEAKER) (test 25 meq/L 22-29 qqsh=307) BLOOD UREA NITROGEN 101 mg/dL 7-21 (BEAKER) (test cgrp=528) CREATININE (BEAKER) (test 2.77 mg/dL 0.57-1.25 yeqg=412) GLUCOSE RANDOM (BEAKER) 108 mg/dL 70-105 (test omtr=663) CALCIUM (BEAKER) (test 8.9 mg/dL 8.4-10.2 jdpo=302) EGFR (BEAKER) (test 17 mL/min/1.73 sq m ESTIMATED GFR IS NOT nfgs=3688) ACCURATE CREATININE CLEARANCE IN PREDICTING GLOMERULAR FILTRATION RATE. ESTIMATED GFR IS NOT APPLICABLE FOR DIALYSIS PATIENTS. B-TYPE NATRIURETIC FACTOR (BNP)2019-07-05 05:47:00 Test Item Value Reference Range Comments B-TYPE NATRIURETIC PEPTIDE (BEAKER) (test 414 pg/mL 0-100 npxt=569) CBC W/PLT COUNT & AUTO [id number] 05:09:00 Test Item Value Reference Range Comments WHITE BLOOD CELL COUNT (BEAKER) (test edwq=917) 14.9 K/ L 3.5-10.5 RED BLOOD CELL COUNT (BEAKER) (test fboy=502) 3.38 M/ L 3.93-5.22 HEMOGLOBIN (BEAKER) (test ccev=296) 10.2 GM/DL 11.2-15.7 HEMATOCRIT (BEAKER) (test gnpc=788) 30.7 % 34.1-44.9 MEAN CORPUSCULAR VOLUME (BEAKER) (test vidg=561) 90.8 fL 79.4-94.8 MEAN CORPUSCULAR HEMOGLOBIN (BEAKER) (test 30.2 pg 25.6-32.2 bbyj=064) MEAN CORPUSCULAR HEMOGLOBIN CONC (BEAKER) (test 33.2 GM/DL 32.2-35.5 szuo=057) RED CELL DISTRIBUTION WIDTH (BEAKER) (test 14.6 % 11.7-14.4 uxrt=853) PLATELET COUNT (BEAKER) (test pudt=294) 257 K/CU MM 150-450 MEAN PLATELET VOLUME (BEAKER) (test bylc=483) 12.2 fL 9.4-12.3 NUCLEATED RED BLOOD CELLS (BEAKER) (test 0 /100 WBC 0-0 evuj=341) NEUTROPHILS RELATIVE PERCENT (BEAKER) (test 84 % nstr=722) LYMPHOCYTES RELATIVE PERCENT (BEAKER) (test 7 % wskk=992) MONOCYTES RELATIVE PERCENT (BEAKER) (test 5 % pkiz=514) EOSINOPHILS RELATIVE PERCENT (BEAKER) (test 1 % sxcz=712) BASOPHILS RELATIVE PERCENT (BEAKER) (test 0 % xgev=236) NEUTROPHILS ABSOLUTE COUNT (BEAKER) (test 12.50 K/ L 1.56-6.13 avmq=319) LYMPHOCYTES ABSOLUTE COUNT (BEAKER) (test 1.09 K/ L 1.18-3.74 ktng=851) MONOCYTES ABSOLUTE COUNT (BEAKER) (test 0.78 K/ L 0.24-0.36 vefk=239) EOSINOPHILS ABSOLUTE COUNT (BEAKER) (test 0.14 K/ L 0.04-0.36 xlqz=331) BASOPHILS ABSOLUTE COUNT (BEAKER) (test 0.03 K/ L 0.01-0.08 efcg=770) IMMATURE GRANULOCYTES-RELATIVE PERCENT (BEAKER) 3 % 0-1 (test mlqb=3532) POCT-GLUCOSE [id number] 21:35:00 Test Item Value Reference Range Comments POC-GLUCOSE METER (BEAKER) 79 mg/dL 70-110 TESTED AT [address] (test fogi=0243) [place] [address] POCT-GLUCOSE [id number] 17:30:00 Test Item Value Reference Range Comments POC-GLUCOSE METER (BEAKER) 156 mg/dL 70-110 TESTED AT [address] (test nsid=2438) [place] [id number] POCT-GLUCOSE [id number] 15:05:00 Test Item Value Reference Range Comments POC-GLUCOSE METER (BEAKER) 211 mg/dL 70-110 TESTED AT [address] (test rebz=1289) [place] [id number] RAD, CHEST, 1 VIEW, NON [id number] 08:07:00Reason for exam:->sobShould this be performed at the bedside?->YesFINAL REPORT INDICATION: sob TECHNIQUE: Chest radiograph, single view, portable technique. FINDINGS / IMPRESSION: Comparison to July 03 and July 02.There is a new patchy opacity in the right lower lung, suspicious for aspiration or developing pneumonia.Left lung grossly clear. No pneumothorax demonstrated.Cardiac mediastinal contours normal. Signed: Daniel Miranda MDReport Verified Date/ Time: 07/04/2019 08:07:46 Reading Location: [address] Ortho Consult Reading Room 08: 07 AMPOCT-GLUCOSE [id number] 08:05:00 Test Item Value Reference Range Comments POC-GLUCOSE METER (BEAKER) 148 mg/dL 70-110 TESTED AT [facility] [address] [facility] (test wkqq=2461) [facility] [address] CBC W/PLT COUNT & AUTO [id number] 07:59:00 Test Item Value Reference Range Comments WHITE BLOOD CELL COUNT (BEAKER) (test aesx=214) 14.3 K/ L 3.5-10.5 RED BLOOD CELL COUNT (BEAKER) (test mghs=514) 3.65 M/ L 3.93-5.22 HEMOGLOBIN (BEAKER) (test pslb=507) 10.7 GM/DL 11.2-15.7 HEMATOCRIT (BEAKER) (test wclp=262) 32.7 % 34.1-44.9 MEAN CORPUSCULAR VOLUME (BEAKER) (test wzwk=308) 89.6 fL 79.4-94.8 MEAN CORPUSCULAR HEMOGLOBIN (BEAKER) (test 29.3 pg 25.6-32.2 fyze=391) MEAN CORPUSCULAR HEMOGLOBIN CONC (BEAKER) (test 32.7 GM/DL 32.2-35.5 nbre=313) RED CELL DISTRIBUTION WIDTH (BEAKER) (test 14.6 % 11.7-14.4 xxxq=360) PLATELET COUNT (BEAKER) (test tnrn=716) 217 K/CU MM 150-450 MEAN PLATELET VOLUME (BEAKER) (test dqao=383) 12.2 fL 9.4-12.3 NUCLEATED RED BLOOD CELLS (BEAKER) (test 0 /100 WBC 0-0 zcgm=334) (CELLAVISION MANUAL DIFF)2019-07-04 07:59:00 Test Item Value Reference Range Comments NEUTROPHILS - REL (CELLAVISION)(BEAKER) (test 88 % aznp=1021) LYMPHOCYTES - REL (CELLAVISION)(BEAKER) (test 6 % vvwy=3102) MONOCYTES - REL (CELLAVISION)(BEAKER) (test 5 % iiik=4699) EOSINOPHILS - REL (CELLAVISION)(BEAKER) (test 1 % tahx=2984) NEUTROPHILS - ABS (CELLAVISION)(BEAKER) (test 12.58 K/ul 1.56-6.13 vqqn=5929) LYMPHOCYTES - ABS (CELLAVISION)(BEAKER) (test 0.86 K/ul 1.18-3.74 rmgp=1955) MONOCYTES - ABS (CELLAVISION)(BEAKER) (test 0.72 K/uL 0.24-0.36 fvfy=4093) EOSINOPHILS - ABS (CELLAVISION)(BEAKER) (test 0.14 K/uL 0.04-0.36 abte=4081) TOTAL COUNTED (BEAKER) (test yfkk=7293) 100 RBC MORPHOLOGY (BEAKER) (test wrve=723) Normal WBC MORPHOLOGY (BEAKER) (test ujfc=642) Normal PLT MORPHOLOGY (BEAKER) (test wexx=068) Normal ARTIFACT (CELLAVISION)(BEAKER) (test slgu=8556) Present PLATELET CONCENTRATION (CELLAVISION)(BEAKER) Adequate (test rqsu=6643) Received comment: User comments: Slide comments:BASIC METABOLIC [id number] 07:39:00 Test Item Value Reference Range Comments SODIUM (BEAKER) (test 133 meq/L 136-145 avse=446) POTASSIUM (BEAKER) (test 3.8 meq/L 3.5-5.1 tivl=145) CHLORIDE (BEAKER) (test 95 meq/L 98-107 yfhp=396) CO2 (BEAKER) (test 25 meq/L 22-29 begb=361) BLOOD UREA NITROGEN 93 mg/dL 7-21 (BEAKER) (test lckk=924) CREATININE (BEAKER) (test 2.54 mg/dL 0.57-1.25 ztft=833) GLUCOSE RANDOM (BEAKER) 150 mg/dL 70-105 (test zesb=471) CALCIUM (BEAKER) (test 9.0 mg/dL 8.4-10.2 obnl=457) EGFR (BEAKER) (test 19 mL/min/1.73 sq m ESTIMATED GFR IS NOT pcvf=1733) ACCURATE CREATININE CLEARANCE IN PREDICTING GLOMERULAR FILTRATION RATE. ESTIMATED GFR IS NOT APPLICABLE FOR DIALYSIS PATIENTS. [id number] 07:33:00 Test Item Value Reference Range Comments MAGNESIUM (BEAKER) (test qygp=219) 2.2 mg/dL 1.6-2.6 POCT-GLUCOSE [id number] 21:21:00 Test Item Value Reference Range Comments POC-GLUCOSE METER (BEAKER) 161 mg/dL 70-110 TESTED AT [facility] [address] [facility] (test azhw=8329) [facility] [address] POCT-GLUCOSE [id number] 12:55:00 Test Item Value Reference Range Comments POC-GLUCOSE METER (BEAKER) 211 mg/dL 70-110 TESTED AT [address] (test lrnw=1450) [facility] [address] CBC W/PLT COUNT & AUTO [id number] 09:36:00 Test Item Value Reference Range Comments WHITE BLOOD CELL COUNT (BEAKER) (test zrrc=487) 12.7 K/ L 3.5-10.5 RED BLOOD CELL COUNT (BEAKER) (test igve=213) 3.81 M/ L 3.93-5.22 HEMOGLOBIN (BEAKER) (test mawc=555) 11.3 GM/DL 11.2-15.7 HEMATOCRIT (BEAKER) (test iqzy=291) 33.9 % 34.1-44.9 MEAN CORPUSCULAR VOLUME (BEAKER) (test srdc=699) 89.0 fL 79.4-94.8 MEAN CORPUSCULAR HEMOGLOBIN (BEAKER) (test 29.7 pg 25.6-32.2 oxng=727) MEAN CORPUSCULAR HEMOGLOBIN CONC (BEAKER) (test 33.3 GM/DL 32.2-35.5 eqds=916) RED CELL DISTRIBUTION WIDTH (BEAKER) (test 14.2 % 11.7-14.4 gynb=437) PLATELET COUNT (BEAKER) (test xnum=250) 213 K/CU MM 150-450 MEAN PLATELET VOLUME (BEAKER) (test ihhc=042) 11.9 fL 9.4-12.3 NUCLEATED RED BLOOD CELLS (BEAKER) (test 0 /100 WBC 0-0 rikr=649) (CELLAVISION MANUAL DIFF)2019-07-03 09:36:00 Test Item Value Reference Range Comments NEUTROPHILS - REL (CELLAVISION)(BEAKER) (test 80 % bpxb=3142) LYMPHOCYTES - REL (CELLAVISION)(BEAKER) (test 10 % vxoo=6708) MONOCYTES - REL (CELLAVISION)(BEAKER) (test 7 % kchq=6206) EOSINOPHILS - REL (CELLAVISION)(BEAKER) (test 1 % ejmm=5818) BANDS - REL (CELLAVISION)(BEAKER) (test 2 % 0-10 srqz=7600) NEUTROPHILS - ABS (CELLAVISION)(BEAKER) (test 10.16 K/ul 1.56-6.13 ksro=4357) LYMPHOCYTES - ABS (CELLAVISION)(BEAKER) (test 1.27 K/ul 1.18-3.74 yjex=1219) MONOCYTES - ABS (CELLAVISION)(BEAKER) (test 0.89 K/uL 0.24-0.36 yfyt=8064) EOSINOPHILS - ABS (CELLAVISION)(BEAKER) (test 0.13 K/uL 0.04-0.36 unxh=6395) BANDS - ABS (CELLAVISION)(BEAKER) (test 0.25 K/uL 0.00-0.80 aobs=5143) TOTAL COUNTED (BEAKER) (test wpak=8233) 100 WBC MORPHOLOGY (BEAKER) (test qshz=641) Normal GIANT PLATELETS (BEAKER) (test dkyr=020) Present LARGE PLT(BEAKER) (test hnsh=4216) Present POLYCHROMATOPHILLIC RBCS(BEAKER) (test zypb=330) 1+ few HYPOCHROMIA (BEAKER) (test fhfy=763) 1+ few ANISOCYTOSIS (BEAKER) (test zvnr=593) 1+ few MACROCYTES (BEAKER) (test anji=275) 1+ few POIKILOCYTES (BEAKER) (test imuz=046) 1+ few OVALOCYTES (BEAKER) (test yrrn=921) 1+ few ARTIFACT (CELLAVISION)(BEAKER) (test nueo=2746) Present PLATELET CONCENTRATION (CELLAVISION)(BEAKER) Adequate (test wvkl=0197) Received comment: User comments: Slide comments:POCT-GLUCOSE [id number] 08: 50:00 Test Item Value Reference Range Comments POC-GLUCOSE METER (BEAKER) 150 mg/dL 70-110 TESTED AT [facility] [address] [facility] (test sxzw=9150) [facility] [address] POCT-GLUCOSE [id number] 08:49:00 Test Item Value Reference Range Comments POC-GLUCOSE METER (BEAKER) 180 mg/dL 70-110 TESTED AT [place] [id number] [facility] (test itbl=2924) [facility] [address] RAD, CHEST, 1 VIEW, NON [id number] 07:08:00Reason for exam:->sobShould this be performed at the bedside?->YesFINAL REPORT RAD , CHEST, 1 VIEW, NON DEPT INDICATION: sob COMPARISON: Prior day's exam FINDINGS : Portable frontal view of the chest. IMPRESSION: Support Lines: None Lungs and pleura: Minimal subsegmental atelectasis on the left. No pneumothorax.Heart and mediastinum: Stable contours. Additional findings: None. Signed: JR Dawson Robert MDReport Verified Date/Time: 07/03/2019 07:08:54 Reading Location: [address] Reading Room BASIC METABOLIC [id number] 05:46:00 Test Item Value Reference Range Comments SODIUM (BEAKER) (test 133 meq/L 136-145 aqer=305) POTASSIUM (BEAKER) (test 3.4 meq/L 3.5-5.1 nwjp=462) CHLORIDE (BEAKER) (test 93 meq/L 98-107 ghqe=844) CO2 (BEAKER) (test 29 meq/L 22-29 rabu=618) BLOOD UREA NITROGEN 87 mg/dL 7-21 (BEAKER) (test udvs=547) CREATININE (BEAKER) (test 2.37 mg/dL 0.57-1.25 lmyh=113) GLUCOSE RANDOM (BEAKER) 146 mg/dL 70-105 (test lpkb=572) CALCIUM (BEAKER) (test 9.1 mg/dL 8.4-10.2 tuoi=245) EGFR (BEAKER) (test 20 mL/min/1.73 sq m ESTIMATED GFR IS NOT rswm=8523) ACCURATE CREATININE CLEARANCE IN PREDICTING GLOMERULAR FILTRATION RATE. ESTIMATED GFR IS NOT APPLICABLE FOR DIALYSIS PATIENTS. [id number] 05:37:00 Test Item Value Reference Range Comments MAGNESIUM (BEAKER) (test xzdu=367) 2.2 mg/dL 1.6-2.6 BLOOD GAS, [id number] 05:26:00 Test Item Value Reference Range Comments PH VENOUS (BEAKER) (test jqcp=468) 7.46 7.32-7.42 PCO2 VENOUS (BEAKER) (test trrt=772) 43 mmHg 41-51 PO2 VENOUS (BEAKER) (test kzcs=244) 48 mmHg 25-40 O2 SATURATION VENOUS (BEAKER) (test hgzo=556) 86.0 % 40.0-70.0 HCO3 VENOUS (BEAKER) (test mual=342) 30 mmol/L 21-29 BASE EXCESS VENOUS (BEAKER) (test zjqn=596) 5.2 mmol/L -2.0-3.0 PATIENT TEMPERATURE (BEAKER) (test dkkx=6619) 37.0 C FIO2 (BEAKER) (test hhzk=8542) 100.0 % [id number] 18:08:00 Test Item Value Reference Range Comments MAGNESIUM (BEAKER) (test feki=391) 2.5 mg/dL 1.6-2.6 [id number] 18:08:00 Test Item Value Reference Range Comments SODIUM (BEAKER) (test hmcw=354) 133 meq/L 136-145 POTASSIUM (BEAKER) (test hfzo=536) 3.6 meq/L 3.5-5.1 CHLORIDE (BEAKER) (test ziwe=834) 95 meq/L 98-107 CO2 (BEAKER) (test qsmc=831) 27 meq/L 22-29 POCT-GLUCOSE [id number] 17:57:00 Test Item Value Reference Range Comments POC-GLUCOSE METER (BEAKER) 211 mg/dL 70-110 TESTED AT [facility] [address] [facility] (test cjal=1798) [facility] [address] POCT-GLUCOSE [id number] 14:09:00 Test Item Value Reference Range Comments POC-GLUCOSE METER (BEAKER) 220 mg/dL 70-110 TESTED AT [facility] [address] [facility] (test qnun=1638) [facility] [address] POCT-GLUCOSE [id number] 10:10:00 Test Item Value Reference Range Comments POC-GLUCOSE METER (BEAKER) 184 mg/dL 70-110 TESTED AT [facility] [address] [facility] (test quuo=9199) [facility] [address] RAD, CHEST, 1 VIEW, NON [id number] 07:25:00Reason for exam:->sobShould this be performed at the bedside?->YesFINAL REPORT RAD , CHEST, 1 VIEW, NON DEPT INDICATION: sob COMPARISON: Prior day's exam FINDINGS : Portable frontal view of the chest. IMPRESSION: Support Lines: Stable left IJ central venous catheter. Lungs and pleura: No new consolidation or effusion. No pneumothorax.Heart and mediastinum: Stable contours. Additional findings: None. Signed: JR Dawson Robert MDReport Verified Date/Time: 07/02/2019 07:25:25 Reading Location: [address] Neuro Reading Room CBC W/PLT COUNT & AUTO [id number] 06:58:00 Test Item Value Reference Range Comments WHITE BLOOD CELL COUNT (BEAKER) (test nhfd=888) 8.9 K/ L 3.5-10.5 RED BLOOD CELL COUNT (BEAKER) (test obni=903) 3.69 M/ L 3.93-5.22 HEMOGLOBIN (BEAKER) (test gmee=991) 10.9 GM/DL 11.2-15.7 HEMATOCRIT (BEAKER) (test rjzo=887) 32.8 % 34.1-44.9 MEAN CORPUSCULAR VOLUME (BEAKER) (test kuyp=944) 88.9 fL 79.4-94.8 MEAN CORPUSCULAR HEMOGLOBIN (BEAKER) (test 29.5 pg 25.6-32.2 qxru=891) MEAN CORPUSCULAR HEMOGLOBIN CONC (BEAKER) (test 33.2 GM/DL 32.2-35.5 dike=317) RED CELL DISTRIBUTION WIDTH (BEAKER) (test 14.4 % 11.7-14.4 voqa=334) PLATELET COUNT (BEAKER) (test yszo=098) 165 K/CU MM 150-450 MEAN PLATELET VOLUME (BEAKER) (test qhkm=922) 12.3 fL 9.4-12.3 NUCLEATED RED BLOOD CELLS (BEAKER) (test 0 /100 WBC 0-0 glgz=284) (CELLAVISION MANUAL DIFF)2019-07-02 06:58:00 Test Item Value Reference Range Comments NEUTROPHILS - REL (CELLAVISION)(BEAKER) (test 74 % zvvt=1656) LYMPHOCYTES - REL (CELLAVISION)(BEAKER) (test 6 % dnja=8434) MONOCYTES - REL (CELLAVISION)(BEAKER) (test 11 % nxhs=4691) BANDS - REL (CELLAVISION)(BEAKER) (test thti=0043) 8 % 0-10 ATYPICAL LYMPHOCYTES - REL (CELLAVISION)(BEAKER) 1 % 0-0 (test lxda=2496) NEUTROPHILS - ABS (CELLAVISION)(BEAKER) (test 6.59 K/ul 1.56-6.13 gqxb=7697) LYMPHOCYTES - ABS (CELLAVISION)(BEAKER) (test 0.53 K/ul 1.18-3.74 uujd=3867) MONOCYTES - ABS (CELLAVISION)(BEAKER) (test 0.98 K/uL 0.24-0.36 qzeb=8355) BANDS - ABS (CELLAVISION)(BEAKER) (test uasr=9897) 0.71 K/uL 0.00-0.80 ATYPICAL LYMPHOCYTES - ABS (CELLAVISION)(BEAKER) 0.09 K/uL 0.00-0.00 (test ymey=8072) TOTAL COUNTED (BEAKER) (test ymaq=6743) 100 RBC MORPHOLOGY (BEAKER) (test dmar=709) Normal WBC MORPHOLOGY (BEAKER) (test xsjq=375) Normal PLT MORPHOLOGY (BEAKER) (test cyte=299) Normal ARTIFACT (CELLAVISION)(BEAKER) (test oztw=8688) Present PLATELET CONCENTRATION (CELLAVISION)(BEAKER) (test Adequate djyt=8469) Received comment: User comments: Slide comments:POCT-GLUCOSE [id number] 05: 51:00 Test Item Value Reference Range Comments POC-GLUCOSE METER (BEAKER) 219 mg/dL 70-110 TESTED AT [facility] [address] [facility] (test zrea=9673) [facility] [address] BLOOD GAS, [id number] 04:53:00 Test Item Value Reference Range Comments PH VENOUS (BEAKER) (test affq=064) 7.42 7.32-7.42 PCO2 VENOUS (BEAKER) (test cxvj=161) 52 mmHg 41-51 PO2 VENOUS (BEAKER) (test yago=049) 48 mmHg 25-40 O2 SATURATION VENOUS (BEAKER) (test xizi=423) 84.4 % 40.0-70.0 HCO3 VENOUS (BEAKER) (test ussx=571) 33 mmol/L 21-29 BASE EXCESS VENOUS (BEAKER) (test uzts=373) 6.8 mmol/L -2.0-3.0 PATIENT TEMPERATURE (BEAKER) (test inli=7633) 36.5 C FIO2 (BEAKER) (test secx=7859) 50.0 % [id number] 04:41:00 Test Item Value Reference Range Comments PHOSPHORUS (BEAKER) (test ktpf=375) 3.2 mg/dL 2.3-4.7 [id number] 04:41:00 Test Item Value Reference Range Comments MAGNESIUM (BEAKER) (test spvp=173) 2.0 mg/dL 1.6-2.6 COMPREHENSIVE METABOLIC [id number] 04:41:00 Test Item Value Reference Range Comments TOTAL PROTEIN (BEAKER) (test 6.2 gm/dL 6.0-8.3 nokj=801) ALBUMIN (BEAKER) (test 3.0 g/dL 3.5-5.0 axcj=9750) ALKALINE PHOSPHATASE (BEAKER) 55 U/L 40-150 (test kedk=094) BILIRUBIN TOTAL (BEAKER) 0.5 mg/dL 0.2-1.2 (test auqq=204) SODIUM (BEAKER) (test 134 meq/L 136-145 jyru=774) POTASSIUM (BEAKER) (test 3.3 meq/L 3.5-5.1 wrks=961) CHLORIDE (BEAKER) (test 93 meq/L 98-107 bpkv=963) CO2 (BEAKER) (test lymq=410) 29 meq/L 22-29 BLOOD UREA NITROGEN (BEAKER) 85 mg/dL 7-21 (test ucgq=569) CREATININE (BEAKER) (test 2.57 mg/dL 0.57-1.25 aqgl=590) GLUCOSE RANDOM (BEAKER) (test 214 mg/dL 70-105 uadz=126) CALCIUM (BEAKER) (test 9.0 mg/dL 8.4-10.2 mruv=185) AST (SGOT) (BEAKER) (test 12 U/L 5-34 tnzs=804) ALT (SGPT) (BEAKER) (test 9 U/L 6-55 fcdt=309) EGFR (BEAKER) (test INSUFFICIENT CLINICAL DATA TO yude=3800) CALCULATE ESTIMATED GFR. [id number] 17:18:00 Test Item Value Reference Range Comments POTASSIUM (BEAKER) (test khdq=663) 3.7 meq/L 3.5-5.1 [id number] 17:18:00 Test Item Value Reference Range Comments MAGNESIUM (BEAKER) (test ickt=770) 2.1 mg/dL 1.6-2.6 POCT-GLUCOSE [id number] 16:43:00 Test Item Value Reference Range Comments POC-GLUCOSE METER (BEAKER) 236 mg/dL 70-110 TESTED AT [address] (test btjt=3208) [place] [address] POCT-GLUCOSE [id number] 12:53:00 Test Item Value Reference Range Comments POC-GLUCOSE METER (BEAKER) 210 mg/dL 70-110 TESTED AT [address] (test evom=3897) [place] [id number] RAD, CHEST, 1 VIEW, NON [id number] 11:06:00Reason for exam:->sobShould this be performed at the bedside?->YesFINAL REPORT Comparison: 06/30/2019 TECHNIQUE: Single view of the chest FINDINGS: Bibasilar densities are stable. Lungs otherwise grossly clear. Cardiac silhouette is enlarged. Left-sided central line is stable. Signed: Wali Velazco MDReport Verified Date/Time: 07/01/2019 11:06:56 Reading Location: [facility] Radiology Reading Room Electronically signed by: WALI VELAZCO M.D. on07/01/2019 11: 06 AMCBC W/PLT COUNT & AUTO [id number] 09:49:00 Test Item Value Reference Range Comments WHITE BLOOD CELL COUNT (BEAKER) (test kzec=891) 8.1 K/ L 3.5-10.5 RED BLOOD CELL COUNT (BEAKER) (test ecqd=104) 3.85 M/ L 3.93-5.22 HEMOGLOBIN (BEAKER) (test nnpv=658) 11.6 GM/DL 11.2-15.7 HEMATOCRIT (BEAKER) (test heqj=315) 35.0 % 34.1-44.9 MEAN CORPUSCULAR VOLUME (BEAKER) (test oifs=378) 90.9 fL 79.4-94.8 MEAN CORPUSCULAR HEMOGLOBIN (BEAKER) (test 30.1 pg 25.6-32.2 nbet=006) MEAN CORPUSCULAR HEMOGLOBIN CONC (BEAKER) (test 33.1 GM/DL 32.2-35.5 jpxi=422) RED CELL DISTRIBUTION WIDTH (BEAKER) (test 14.6 % 11.7-14.4 efch=146) PLATELET COUNT (BEAKER) (test mdev=712) 143 K/CU MM 150-450 MEAN PLATELET VOLUME (BEAKER) (test wcxm=444) 12.2 fL 9.4-12.3 NUCLEATED RED BLOOD CELLS (BEAKER) (test 0 /100 WBC 0-0 vcwg=912) (CELLAVISION MANUAL DIFF)2019-07-01 09:49:00 Test Item Value Reference Range Comments NEUTROPHILS - REL (CELLAVISION)(BEAKER) (test 82 % utht=0742) LYMPHOCYTES - REL (CELLAVISION)(BEAKER) (test 5 % qytv=5492) MONOCYTES - REL (CELLAVISION)(BEAKER) (test 10 % bpyx=1450) BANDS - REL (CELLAVISION)(BEAKER) (test fxkx=0965) 1 % 0-10 ATYPICAL LYMPHOCYTES - REL (CELLAVISION)(BEAKER) 2 % 0-0 (test bxve=7485) NEUTROPHILS - ABS (CELLAVISION)(BEAKER) (test 6.64 K/ul 1.56-6.13 qzdi=9190) LYMPHOCYTES - ABS (CELLAVISION)(BEAKER) (test 0.41 K/ul 1.18-3.74 jyob=5754) MONOCYTES - ABS (CELLAVISION)(BEAKER) (test 0.81 K/uL 0.24-0.36 bpvc=4044) BANDS - ABS (CELLAVISION)(BEAKER) (test vmxg=0552) 0.08 K/uL 0.00-0.80 ATYPICAL LYMPHOCYTES - ABS (CELLAVISION)(BEAKER) 0.16 K/uL 0.00-0.00 (test eneb=0287) TOTAL COUNTED (BEAKER) (test eysm=9953) 100 RBC MORPHOLOGY (BEAKER) (test ezlq=709) Normal SMUDGE CELLS (BEAKER) (test flcm=9859) Present GIANT PLATELETS (BEAKER) (test dhzu=414) Present TOXIC GRANULATION (BEAKER) (test mwcc=909) Present PLATELET CONCENTRATION (CELLAVISION)(BEAKER) (test Decreased dgsb=8957) Received comment: User comments: Slide comments:COMPREHENSIVE METABOLIC [id number] 08:39:00 Test Item Value Reference Range Comments TOTAL PROTEIN (BEAKER) (test 6.3 gm/dL 6.0-8.3 imqu=839) ALBUMIN (BEAKER) (test 3.0 g/dL 3.5-5.0 xoeo=5355) ALKALINE PHOSPHATASE (BEAKER) 58 U/L 40-150 (test uosl=978) BILIRUBIN TOTAL (BEAKER) 0.5 mg/dL 0.2-1.2 (test rpoq=167) SODIUM (BEAKER) (test 134 meq/L 136-145 uzth=208) POTASSIUM (BEAKER) (test 3.9 meq/L 3.5-5.1 tbye=583) CHLORIDE (BEAKER) (test 95 meq/L 98-107 swzb=034) CO2 (BEAKER) (test aehs=759) 26 meq/L 22-29 BLOOD UREA NITROGEN (BEAKER) 83 mg/dL 7-21 (test ibtj=436) CREATININE (BEAKER) (test 2.75 mg/dL 0.57-1.25 ugxh=657) GLUCOSE RANDOM (BEAKER) (test 161 mg/dL 70-105 jcfp=245) CALCIUM (BEAKER) (test 8.9 mg/dL 8.4-10.2 eejr=373) AST (SGOT) (BEAKER) (test 18 U/L 5-34 hbic=927) ALT (SGPT) (BEAKER) (test 10 U/L 6-55 fkxf=654) EGFR (BEAKER) (test INSUFFICIENT CLINICAL DATA TO xxvr=6879) CALCULATE ESTIMATED GFR. [id number] 08:30:00 Test Item Value Reference Range Comments PHOSPHORUS (BEAKER) (test whim=247) 5.3 mg/dL 2.3-4.7 [id number] 08:30:00 Test Item Value Reference Range Comments MAGNESIUM (BEAKER) (test uqta=173) 2.1 mg/dL 1.6-2.6 POCT-GLUCOSE [id number] 08:15:00 Test Item Value Reference Range Comments POC-GLUCOSE METER (BEAKER) 167 mg/dL 70-110 TESTED AT [address] (test sufn=5084) [facility] [address] BLOOD GAS, [id number] 05:55:00 Test Item Value Reference Range Comments PH VENOUS (BEAKER) (test qwdo=349) 7.35 7.32-7.42 PCO2 VENOUS (BEAKER) (test aino=397) 54 mmHg 41-51 PO2 VENOUS (BEAKER) (test rqmc=551) 47 mmHg 25-40 O2 SATURATION VENOUS (BEAKER) (test bayy=346) 80.3 % 40.0-70.0 HCO3 VENOUS (BEAKER) (test ydwx=334) 29 mmol/L 21-29 BASE EXCESS VENOUS (BEAKER) (test lxhl=465) 2.5 mmol/L -2.0-3.0 PATIENT TEMPERATURE (BEAKER) (test pbjo=0942) 37.0 C FIO2 (BEAKER) (test xjmm=7663) 100.0 % CALCIUM, [id number] 05:50:00 Test Item Value Reference Range Comments CALCIUM IONIZED (BEAKER) (test yxgz=690) 1.12 mmol/L 1.12-1.27 PH, BLOOD (BEAKER) (test gquv=5855) 7.35 BASIC METABOLIC [id number] 01:53:00 Test Item Value Reference Range Comments SODIUM (BEAKER) (test 133 meq/L 136-145 iruw=041) POTASSIUM (BEAKER) (test 3.6 meq/L 3.5-5.1 llpg=726) CHLORIDE (BEAKER) (test 95 meq/L 98-107 ernt=242) CO2 (BEAKER) (test ltoh=585) 24 meq/L 22-29 BLOOD UREA NITROGEN (BEAKER) 77 mg/dL 7-21 (test dvca=713) CREATININE (BEAKER) (test 2.79 mg/dL 0.57-1.25 ppot=425) GLUCOSE RANDOM (BEAKER) 211 mg/dL 70-105 (test cokl=101) CALCIUM (BEAKER) (test 8.8 mg/dL 8.4-10.2 nkfw=594) EGFR (BEAKER) (test INSUFFICIENT CLINICAL DATA TO mfog=9272) CALCULATE ESTIMATED GFR. PUL PERF [facility], [facility], [id number] 23:32:00Reason for exam:-> dyspneaFINAL REPORT PROCEDURE: V/Q LUNG SCAN CPT CODE: 19886 INDICATION: exertional dyspnea PROTOCOL: 9.3 mCi of Xe-133 gas was administered by inhalation. Rebreathing/washout images were obtained in the anterior and the posterior projections. 4.3 mCi of Tc-99m MAA was then injected intravenously, and static perfusion images were obtained in multiple projections. FINDINGS: Ventilation: Initial tracer distribution is markedly irregular and decreasedin bont lungs. Washout is moderately delayed in both lungs with additional trapping in the left lower lung field. Perfusion: Tracer distribution is nonsegmentally, irregularly decreased in both lungs. IMPRESSION: 1. Low probability of acute pulmonary embolization.2. Bilateral parenchymal abnormality, worst in the left lower lung field. Signed: Mando Hernández MDReport Verified Date/Time: 2018 23:32:10 Electronically signed by: MANDO HERNÁNDEZ MD on 2018 11:32 PMPOCT-GLUCOSE [id number] 22:19:00 Test Item Value Reference Range Comments POC-GLUCOSE METER (BEAKER) 218 mg/dL 70-110 TESTED AT [facility] [address] [facility] (test rcdo=0903) [facility] [address] CT, CHEST, WITHOUT [id number] 21:46:00Reason for exam:->sobAnesthesia :->NoneFINAL REPORT EXAM: CT of the chest, without contrast CLINICAL HISTORY: Shortness of breath and pneumonia. Technique: CT of the chest was performed without intravenous contrast administration. This exam was performed according to our departmental dose optimization program which includes automated exposure control, adjustment of the mA and/or kV according to patient's size and/or use of iterative reconstructive technique. COMPARISON: None FINDINGS: LOWER NECK: Within normal limits.AIRWAYS, PLEURA AND LUNGS: Patent central tracheobronchial tree. Airspace consolidation the leftlower lobe suspicious for pneumonia. Small airspace opacities in the right lower lobe which may represent pneumonia and/or subsegmental atelectasis. Mild right apical pleural thickening. Mild bibasilarlinear atelectasis. Calcified right upper lobe granuloma. No pneumothorax. VESSELS: Left-sided central venous catheter with tip in the SVC. Atherosclerotic calcifications of the aorta and branches including coronary arteries. No thoracic aortic aneurysm. HEART: Normal heart size. No pericardial effusion.JAVED AND MEDIASTINUM: Within normal limits.VISUALIZED UPPER ABDOMEN: Left renal artery stent. Atherosclerotic calcifications of the aorta and branches. Hyperdensity within the gallbladder which may represent inspissated sludge and/or small stones. Colonic diverticula. Nonspecific lobulation of the left kidney. Mild nonspecific left adrenal gland thickening.SOFT TISSUES: Within normal limits.BONES: Generalized osteopenia. Mild degenerative changes of the visualized spine. IMPRESSION: Airspace consolidation the left lower lobe suspicious for pneumonia. Small airspace opacities in the right lower lobe which may represent pneumonia and/or subsegmental atelectasis. Signed: Gil Hooper [facility] Verified Date/Time: 21:46:13 Electronically signed by: GIL HOOPER MD on 10/2018 09:46 [facility] METABOLIC [id number] 13:40:00 Test Item Value Reference Range Comments SODIUM (BEAKER) (test 132 meq/L 136-145 edkd=853) POTASSIUM (BEAKER) (test 3.6 meq/L 3.5-5.1 ixjv=435) CHLORIDE (BEAKER) (test 97 meq/L 98-107 nyjl=913) CO2 (BEAKER) (test jjna=134) 26 meq/L 22-29 BLOOD UREA NITROGEN (BEAKER) 75 mg/dL 7-21 (test wpla=116) CREATININE (BEAKER) (test 2.76 mg/dL 0.57-1.25 dtfd=451) GLUCOSE RANDOM (BEAKER) 173 mg/dL 70-105 (test zjat=582) CALCIUM (BEAKER) (test 8.4 mg/dL 8.4-10.2 gjts=160) EGFR (BEAKER) (test INSUFFICIENT CLINICAL DATA TO snmp=3357) CALCULATE ESTIMATED GFR. POCT-GLUCOSE [id number] 11:53:00 Test Item Value Reference Range Comments POC-GLUCOSE METER (BEAKER) 135 mg/dL 70-110 TESTED AT [facility] [address] [facility] (test lzbg=2688) [facility] [address] BLOOD GAS, [id number] 11:08:00 Test Item Value Reference Range Comments PH VENOUS (BEAKER) (test csxb=474) 7.34 7.32-7.42 PCO2 VENOUS (BEAKER) (test ikpk=155) 50 mmHg 41-51 PO2 VENOUS (BEAKER) (test xjne=826) 49 mmHg 25-40 O2 SATURATION VENOUS (BEAKER) (test bqhx=294) 82.0 % 40.0-70.0 HCO3 VENOUS (BEAKER) (test nzlz=125) 27 mmol/L 21-29 BASE EXCESS VENOUS (BEAKER) (test bivp=821) 0.5 mmol/L -2.0-3.0 PATIENT TEMPERATURE (BEAKER) (test aqbf=2737) 37.0 C FIO2 (BEAKER) (test cauq=1868) 100.0 % CBC W/PLT COUNT & AUTO [id number] 07:52:00 Test Item Value Reference Range Comments WHITE BLOOD CELL COUNT (BEAKER) 9.9 K/ L 3.5-10.5 (test duqq=572) RED BLOOD CELL COUNT (BEAKER) 3.94 M/ L 3.93-5.22 (test egiz=421) HEMOGLOBIN (BEAKER) (test 11.8 GM/DL 11.2-15.7 frci=588) HEMATOCRIT (BEAKER) (test 35.7 % 34.1-44.9 szov=156) MEAN CORPUSCULAR VOLUME 90.6 fL 79.4-94.8 (BEAKER) (test phsm=892) MEAN CORPUSCULAR HEMOGLOBIN 29.9 pg 25.6-32.2 (BEAKER) (test lvvm=339) MEAN CORPUSCULAR HEMOGLOBIN 33.1 GM/DL 32.2-35.5 CONC (BEAKER) (test jlnk=204) RED CELL DISTRIBUTION WIDTH 14.7 % 11.7-14.4 (BEAKER) (test blae=577) PLATELET COUNT (BEAKER) (test 128 K/CU MM 150-450 faki=110) MEAN PLATELET VOLUME (BEAKER) 11.6 fL 9.4-12.3 MPV-Approximately 20% (test xfvu=828) positive bias due to method change. NUCLEATED RED BLOOD CELLS 0 /100 WBC 0-0 (BEAKER) (test apld=878) (CELLAVISION MANUAL DIFF)2019-06-30 07:52:00 Test Item Value Reference Range Comments NEUTROPHILS - REL (CELLAVISION)(BEAKER) (test 81 % khzp=5757) LYMPHOCYTES - REL (CELLAVISION)(BEAKER) (test 9 % ikgb=3532) MONOCYTES - REL (CELLAVISION)(BEAKER) (test 4 % dpzv=4130) BANDS - REL (CELLAVISION)(BEAKER) (test qnya=4275) 5 % 0-10 NEUTROPHILS - ABS (CELLAVISION)(BEAKER) (test 8.02 K/ul 1.56-6.13 fsja=0124) LYMPHOCYTES - ABS (CELLAVISION)(BEAKER) (test 0.89 K/ul 1.18-3.74 ewvt=0555) MONOCYTES - ABS (CELLAVISION)(BEAKER) (test 0.40 K/uL 0.24-0.36 xklw=5897) BANDS - ABS (CELLAVISION)(BEAKER) (test vazi=3323) 0.50 K/uL 0.00-0.80 TOTAL COUNTED (BEAKER) (test znfm=1940) 100 PLT MORPHOLOGY (BEAKER) (test udlq=555) Normal DOHLE BODIES (BEAKER) (test zrxu=871) Present TOXIC GRANULATION (BEAKER) (test lgwv=203) Present POLYCHROMATOPHILLIC RBCS(BEAKER) (test nzmh=631) 1+ few ANISOCYTOSIS (BEAKER) (test kpuv=315) 1+ few POIKILOCYTES (BEAKER) (test wtsv=398) 1+ few JOSSY CELLS (BEAKER) (test xtgi=614) 1+ few ARTIFACT (CELLAVISION)(BEAKER) (test pkmv=9710) Present PLATELET CONCENTRATION (CELLAVISION)(BEAKER) (test Decreased kebz=6862) Received comment: User comments: Slide comments:RAD, ABDOMEN/KUB, 1 VIEW [id number] 07:41:00Reason for exam:->ileusShould this be performed at the bedside? ->YesFINAL REPORT RAD, ABDOMEN/KUB, 1 VIEW AP CLINICAL INDICATION: ileus COMPARISON: June 29, 2019 TECHNIQUE: Single, frontal radiograph of the abdomen. IMPRESSION: The bowel gas pattern demonstrates scattered gaseous dilation and mural thickening which may reflect enterocolitis or ileus. No new soft tissue mass is identified. Vascular stent material is seen overlying the gastric lumen and at the aortic bifurcation. The regional skeleton is intact. Signed: JR Dawson Robert MDReport Verified Date/Time: 06/30/2019 07:41:54 Reading Location: [address] Neuro Reading Room RAD, CHEST, 1 VIEW, NON [id number] 07:39:00Reason for exam:->sobShould this be performed at the bedside?->YesFINAL REPORT RAD , CHEST, 1 VIEW, NON DEPT INDICATION: sob COMPARISON: Prior day's exam FINDINGS : Portable frontal view of the chest. IMPRESSION: Support Lines: Left IJ centralvenous catheter terminates over the superior vena cava. Lungs and pleura : No new consolidation. Bibasilar subsegmental atelectasis, greater on the left. No pneumothorax.Heart and mediastinum: Stable contours. Additional findings: None. Signed: JR Dawson Robert MDReport Verified Date/Time: 06/30/2019 07:39:31 Reading Location: [address] Neuro Reading Room COMPREHENSIVE METABOLIC [id number] 03:49:00 Test Item Value Reference Range Comments TOTAL PROTEIN (BEAKER) (test 6.1 gm/dL 6.0-8.3 hlxb=559) ALBUMIN (BEAKER) (test 3.0 g/dL 3.5-5.0 fbnc=5829) ALKALINE PHOSPHATASE (BEAKER) 58 U/L 40-150 (test tsus=442) BILIRUBIN TOTAL (BEAKER) 0.4 mg/dL 0.2-1.2 (test hhgw=030) SODIUM (BEAKER) (test 136 meq/L 136-145 qtsw=327) POTASSIUM (BEAKER) (test 3.8 meq/L 3.5-5.1 zlwc=945) CHLORIDE (BEAKER) (test 98 meq/L 98-107 phjh=948) CO2 (BEAKER) (test yzly=262) 26 meq/L 22-29 BLOOD UREA NITROGEN (BEAKER) 77 mg/dL 7-21 (test mcsz=040) CREATININE (BEAKER) (test 3.03 mg/dL 0.57-1.25 your=807) GLUCOSE RANDOM (BEAKER) (test 173 mg/dL 70-105 kryq=258) CALCIUM (BEAKER) (test 9.0 mg/dL 8.4-10.2 dfay=544) AST (SGOT) (BEAKER) (test 19 U/L 5-34 nxgu=225) ALT (SGPT) (BEAKER) (test 13 U/L 6-55 fikj=695) EGFR (BEAKER) (test INSUFFICIENT CLINICAL DATA TO fqkf=8248) CALCULATE ESTIMATED GFR. [id number] 03:42:00 Test Item Value Reference Range Comments PHOSPHORUS (BEAKER) (test onwz=947) 5.8 mg/dL 2.3-4.7 [id number] 03:42:00 Test Item Value Reference Range Comments MAGNESIUM (BEAKER) (test civc=495) 2.3 mg/dL 1.6-2.6 CALCIUM, [id number] 03:31:00 Test Item Value Reference Range Comments CALCIUM IONIZED (BEAKER) (test iwxt=696) 1.09 mmol/L 1.12-1.27 PH, BLOOD (BEAKER) (test sxaz=7509) 7.31 BASIC METABOLIC [id number] 20:52:00 Test Item Value Reference Range Comments SODIUM (BEAKER) (test 134 meq/L 136-145 njxx=931) POTASSIUM (BEAKER) (test 3.9 meq/L 3.5-5.1 Specimen moderately hemolyzed cvtt=910) CHLORIDE (BEAKER) (test 99 meq/L 98-107 kngu=559) CO2 (BEAKER) (test njvp=953) 23 meq/L 22-29 BLOOD UREA NITROGEN (BEAKER) 74 mg/dL 7-21 (test quuf=489) CREATININE (BEAKER) (test 3.10 mg/dL 0.57-1.25 Specimen moderately hemolyzed xggc=262) GLUCOSE RANDOM (BEAKER) 204 mg/dL 70-105 (test qgkf=549) CALCIUM (BEAKER) (test 8.5 mg/dL 8.4-10.2 lfto=992) EGFR (BEAKER) (test INSUFFICIENT CLINICAL DATA TO dwij=0292) CALCULATE ESTIMATED GFR. [id number] 20:32:00 Test Item Value Reference Range Comments ACTIVATED CLOTTING TIME 120 sec Reference Range: 74-137 (BEAKER) (test syuf=016) seconds, Baseline/TESTED AT [place] [address] [id number] 18:28:00 Test Item Value Reference Range Comments ACTIVATED CLOTTING TIME 136 sec Reference Range: 74-137 (BEAKER) (test kysz=399) seconds, Baseline/TESTED AT [place] [address] POCT-GLUCOSE [id number] 17:26:00 Test Item Value Reference Range Comments POC-GLUCOSE METER (BEAKER) 189 mg/dL 70-110 TESTED AT [address] (test fvyn=7150) [place] [address] [id number] 17:13:00 Test Item Value Reference Range Comments ACTIVATED CLOTTING TIME 147 sec Reference Range: 74-137 (BEAKER) (test otak=261) seconds, Baseline/TESTED AT [place] [address] [id number] 16:50:00 Test Item Value Reference Range Comments ACTIVATED CLOTTING TIME 158 sec Reference Range: 74-137 (BEAKER) (test ptsu=076) seconds, Baseline/TESTED AT [address] [address] BASIC METABOLIC [id number] 15:22:00 Test Item Value Reference Range Comments SODIUM (BEAKER) (test 135 meq/L 136-145 rkho=608) POTASSIUM (BEAKER) (test 3.9 meq/L 3.5-5.1 oupj=628) CHLORIDE (BEAKER) (test 99 meq/L 98-107 hcjl=618) CO2 (BEAKER) (test aggs=283) 24 meq/L 22-29 BLOOD UREA NITROGEN (BEAKER) 71 mg/dL 7-21 (test vapf=318) CREATININE (BEAKER) (test 2.98 mg/dL 0.57-1.25 ksvn=166) GLUCOSE RANDOM (BEAKER) 179 mg/dL 70-105 (test alzb=251) CALCIUM (BEAKER) (test 8.8 mg/dL 8.4-10.2 suiw=538) EGFR (BEAKER) (test INSUFFICIENT CLINICAL DATA TO eikw=6262) CALCULATE ESTIMATED GFR. [id number] 14:36:00 Test Item Value Reference Range Comments ACTIVATED CLOTTING TIME 219 sec Reference Range: 74-137 (BEAKER) (test hyld=408) seconds, Baseline/TESTED AT [address] [address] [id number] 13:50:00 Test Item Value Reference Range Comments ACTIVATED CLOTTING TIME 257 sec Reference Range: 74-137 (BEAKER) (test pamr=286) seconds, Baseline/TESTED AT [address] [address] RAD, ABDOMEN/KUB, 1 VIEW [id number] 10:18:00Reason for exam:->ileusShould this be performed at the bedside?->YesFINAL REPORT CLINICAL HISTORY: ileus TECHNIQUE: Supine abdomen COMPARISON: 06/28/2019 IMPRESSION: The bowel gas pattern is nonspecific. Free air and air-fluid levels are not seen but cannot be definitively excluded on the supine view. Vascular stents are again seen in the left upper abdomen and midline lower abdomen. Signed: Antolin Jarrelleport Verified Date/Time: 06/29/201910:18:28 Reading Location: [facility] Radiology Reading Room RAD, CHEST, 1 VIEW, NON [id number] 09:28:00Reason for exam:->sobShould this be performed at the bedside?-> YesFINAL REPORT CLINICAL HISTORY: sob TECHNIQUE: 1 view of the chest. COMPARISON: 06/28/2019 IMPRESSION: The left jugular line is unchanged. Minimal bibasilar atelectasis is unchanged. The cardiomediastinal silhouette is magnified by technique. Signed: Antolin Jarrell MDReport Verified Date/Time: 06/29/2019 09:28:17 Reading Location: [facility] Radiology Reading Room CBC W/PLT COUNT & AUTO [id number] 08:40:00 Test Item Value Reference Range Comments WHITE BLOOD CELL COUNT (BEAKER) 11.1 K/ L 3.5-10.5 (test pfzb=719) RED BLOOD CELL COUNT (BEAKER) 4.37 M/ L 3.93-5.22 (test lsup=329) HEMOGLOBIN (BEAKER) (test 13.0 GM/DL 11.2-15.7 kkmk=824) HEMATOCRIT (BEAKER) (test 39.6 % 34.1-44.9 znrc=784) MEAN CORPUSCULAR VOLUME 90.6 fL 79.4-94.8 (BEAKER) (test bskz=022) MEAN CORPUSCULAR HEMOGLOBIN 29.7 pg 25.6-32.2 (BEAKER) (test jidn=285) MEAN CORPUSCULAR HEMOGLOBIN 32.8 GM/DL 32.2-35.5 CONC (BEAKER) (test cegz=030) RED CELL DISTRIBUTION WIDTH 14.7 % 11.7-14.4 (BEAKER) (test onfb=167) PLATELET COUNT (BEAKER) (test 120 K/CU MM 150-450 smar=141) MEAN PLATELET VOLUME (BEAKER) 11.0 fL 9.4-12.3 MPV-Approximately 20% (test bwqx=706) positive bias due to method change. NUCLEATED RED BLOOD CELLS 0 /100 WBC 0-0 (BEAKER) (test xfzk=776) (CELLAVISION MANUAL DIFF)2019-06-29 08:40:00 Test Item Value Reference Range Comments NEUTROPHILS - REL (CELLAVISION)(BEAKER) (test 79 % skxd=4958) LYMPHOCYTES - REL (CELLAVISION)(BEAKER) (test 7 % jtxz=5169) MONOCYTES - REL (CELLAVISION)(BEAKER) (test 6 % utew=5129) BANDS - REL (CELLAVISION)(BEAKER) (test plth=3220) 8 % 0-10 NEUTROPHILS - ABS (CELLAVISION)(BEAKER) (test 8.77 K/ul 1.56-6.13 laja=6872) LYMPHOCYTES - ABS (CELLAVISION)(BEAKER) (test 0.78 K/ul 1.18-3.74 vhqu=6657) MONOCYTES - ABS (CELLAVISION)(BEAKER) (test 0.67 K/uL 0.24-0.36 uloc=0340) BANDS - ABS (CELLAVISION)(BEAKER) (test sxmk=4539) 0.89 K/uL 0.00-0.80 TOTAL COUNTED (BEAKER) (test xjyg=3009) 100 RBC MORPHOLOGY (BEAKER) (test zyzg=101) Normal WBC MORPHOLOGY (BEAKER) (test bpyc=725) Normal PLT MORPHOLOGY (BEAKER) (test sxmj=978) Normal ARTIFACT (CELLAVISION)(BEAKER) (test trzg=9429) Present PLATELET CONCENTRATION (CELLAVISION)(BEAKER) (test Decreased gswc=0641) Received comment: User comments: Slide comments:BLOOD GAS, [id number] 04 :40:00 Test Item Value Reference Range Comments PH ARTERIAL (BEAKER) (test tnqo=448) 7.45 7.35-7.45 PCO2 ARTERIAL (BEAKER) (test orxj=226) 34 mmHg 35-45 PO2 ARTERIAL (BEAKER) (test bzlo=663) 74 mmHg 80-90 O2 SATURATION ARTERIAL (BEAKER) (test cclj=301) 95.5 % 96.0-97.0 HCO3 ARTERIAL (BEAKER) (test fpch=300) 23 mmol/L 21-29 BASE EXCESS ARTERIAL (BEAKER) (test rigx=898) -0.6 mmol/L -2.0-3.0 PATIENT TEMPERATURE (BEAKER) (test ckbs=1662) 37.0 C FIO2 (BEAKER) (test arwl=9850) 44.0 % COMPREHENSIVE METABOLIC [id number] 04:37:00 Test Item Value Reference Range Comments TOTAL PROTEIN (BEAKER) (test 6.2 gm/dL 6.0-8.3 aqcz=602) ALBUMIN (BEAKER) (test 3.0 g/dL 3.5-5.0 ndro=1999) ALKALINE PHOSPHATASE (BEAKER) 57 U/L 40-150 (test jpub=555) BILIRUBIN TOTAL (BEAKER) 0.6 mg/dL 0.2-1.2 (test uodl=810) SODIUM (BEAKER) (test 134 meq/L 136-145 hikg=509) POTASSIUM (BEAKER) (test 3.7 meq/L 3.5-5.1 ipld=798) CHLORIDE (BEAKER) (test 98 meq/L 98-107 mjqv=113) CO2 (BEAKER) (test jqzm=313) 25 meq/L 22-29 BLOOD UREA NITROGEN (BEAKER) 65 mg/dL 7-21 (test dmjf=568) CREATININE (BEAKER) (test 2.99 mg/dL 0.57-1.25 tmwb=522) GLUCOSE RANDOM (BEAKER) (test 157 mg/dL 70-105 hfur=653) CALCIUM (BEAKER) (test 8.6 mg/dL 8.4-10.2 cfyo=008) AST (SGOT) (BEAKER) (test 20 U/L 5-34 sizx=095) ALT (SGPT) (BEAKER) (test 13 U/L 6-55 imfv=539) EGFR (BEAKER) (test INSUFFICIENT CLINICAL DATA TO ljyn=4302) CALCULATE ESTIMATED GFR. B-TYPE NATRIURETIC FACTOR (BNP)2019-06-29 04:34:00 Test Item Value Reference Range Comments B-TYPE NATRIURETIC PEPTIDE (BEAKER) (test 848 pg/mL 0-100 gpyg=027) [id number] 04:33:00 Test Item Value Reference Range Comments PHOSPHORUS (BEAKER) (test qvwk=868) 5.2 mg/dL 2.3-4.7 [id number] 04:33:00 Test Item Value Reference Range Comments MAGNESIUM (BEAKER) (test lloj=735) 1.8 mg/dL 1.6-2.6 CALCIUM, [id number] 04:22:00 Test Item Value Reference Range Comments CALCIUM IONIZED (BEAKER) (test fctk=133) 1.09 mmol/L 1.12-1.27 PH, BLOOD (BEAKER) (test nldh=3785) 7.39 BASIC METABOLIC [id number] 22:10:00 Test Item Value Reference Range Comments SODIUM (BEAKER) (test 136 meq/L 136-145 fvho=121) POTASSIUM (BEAKER) (test 3.4 meq/L 3.5-5.1 Specimen slightly hemolyzed xepn=848) CHLORIDE (BEAKER) (test 99 meq/L 98-107 ldbg=755) CO2 (BEAKER) (test dizb=255) 24 meq/L 22-29 BLOOD UREA NITROGEN (BEAKER) 62 mg/dL 7-21 (test sidj=191) CREATININE (BEAKER) (test 3.07 mg/dL 0.57-1.25 Specimen slightly hemolyzed dyyx=424) GLUCOSE RANDOM (BEAKER) 206 mg/dL 70-105 (test spzm=168) CALCIUM (BEAKER) (test 8.7 mg/dL 8.4-10.2 fynw=431) EGFR (BEAKER) (test INSUFFICIENT CLINICAL DATA TO iapr=2329) CALCULATE ESTIMATED GFR. POCT-GLUCOSE [id number] 18:08:00 Test Item Value Reference Range Comments POC-GLUCOSE METER (BEAKER) 180 mg/dL 70-110 TESTED AT [facility] [address] [facility] (test qlrg=0984) [facility] [address] BLOOD GAS, [id number] 16:21:00 Test Item Value Reference Range Comments PH VENOUS (BEAKER) (test uqub=468) 7.33 7.32-7.42 PCO2 VENOUS (BEAKER) (test foqo=765) 49 mmHg 41-51 PO2 VENOUS (BEAKER) (test vdbb=576) 50 mmHg 25-40 O2 SATURATION VENOUS (BEAKER) (test awhv=890) 83.0 % 40.0-70.0 HCO3 VENOUS (BEAKER) (test peyb=913) 25 mmol/L 21-29 BASE EXCESS VENOUS (BEAKER) (test cclk=602) -1.1 mmol/L -2.0-3.0 PATIENT TEMPERATURE (BEAKER) (test crby=9629) 37.0 C RAD, CHEST, 1 VIEW, NON [id number] 14:41:00Reason for exam:->eval central lineShould this be performed at the bedside?->YesFINAL REPORT EXAM: Frontal chest radiograph, 2 images HISTORY PROVIDED : Evaluate central line COMPARISON: 06/28/2019 at 1108 IMPRESSION:There has been interval placement of a leftIJ central venous catheter with its tip projecting over the distal SVC. Minimal bibasilar opacities likely represent atelectasis, however pneumonitis should be excluded clinically. No pneumothorax or significant pleural fluid. Cardiomediastinal contours are stable. There is atherosclerotic calcification of the aorta. No acute osseous abnormality. Signed : Elsa Carter MDReport Verified Date/Time: 06/28/2019 14:41:37 Reading [facility] Reading [facility] RESPIRATORY PANEL [id number] 14:06:00 Test Item Value Reference Range Comments HUMAN METAPNEUMOVIRUS Not detected Not detected, (BEAKER) (test opdc=2762) Equivocal RHINOVIRUS (BEAKER) (test Not detected Not detected, zhif=7677) Equivocal INFLUENZA A (BEAKER) (test Not detected Not detected, cseh=4157) Equivocal INFLUENZA A (NO SUBTYPE) (test lanx=1014) INFLUENZA A SUBTYPE H1 (BEAKER) (test wqyu=5873) INFLUENZA A SUBTYPE H3 (BEAKER) (test kfng=6295) INFLUENZA A SUBTYPE H1-2009 (BEAKER) (test bops=1246) INFLUENZA B (BEAKER) (test Not detected Not detected, vafq=3301) Equivocal RESPIRATORY SYNCYTIAL Not detected Not detected, VIRUS (BEAKER) (test Equivocal nbqp=1150) PARAINFLUENZA VIRUS 1 Detected Not detected, Contact isolation if (BEAKER) (test juss=3900) Equivocal immunosuppressed or young children. Consider stopping antibiotics. PARAINFLUENZA VIRUS 2 Not detected Not detected, (BEAKER) (test jpog=1741) Equivocal PARAINFLUENZA VIRUS 3 Not detected Not detected, (BEAKER) (test ucrd=5332) Equivocal PARAINFLUENZA VIRUS 4 Not detected Not detected, (BEAKER) (test wafz=8800) Equivocal ADENOVIRUS (BEAKER) (test Not detected Not detected, pwrv=2133) Equivocal CORONAVIRUS 229E (BEAKER) Not detected Not detected, (test lzcx=4744) Equivocal CORONAVIRUS HKU1 (BEAKER) Not detected Not detected, (test rnbr=5832) Equivocal CORONAVIRUS NL63 (BEAKER) Not detected Not detected, (test tqyr=3411) Equivocal CORONAVIRUS OC43 (BEAKER) Not detected Not detected, (test nwto=1073) Equivocal BORDETELLA PERTUSSIS Not detected Not detected, (BEAKER) (test tmkq=9434) Equivocal CHLAMYDOPHILA PNEUMONIAE Not detected Not detected, (BEAKER) (test gftu=6486) Equivocal MYCOPLASMA PNEUMONIAE Not detected Not detected, (BEAKER) (test vctm=0058) Equivocal Other viruses and bacteria not targeted by this PCR panel cannot be excluded; therefore clinical correlation and follow up of serology, culture results, and other molecular studies is required. The results are not intended to be used as the sole means for clinical diagnosis or patient management decisions. This sample was tested at the [facility] using the [employer] FilmArray Respiratory Panel. It is FDA cleared and has been verified and approved by the [facility] for clinical use on nasopharyngeal swab specimens.The performance of the FilmArrayRP has not been established in individuals who received influenza vaccine. Recent administration ofa nasal influenza vaccine may cause false positive results for Influenza A and/orInfluenza B.CBC W/PLT COUNT & AUTO [id number] 13:11:00 Test Item Value Reference Range Comments WHITE BLOOD CELL COUNT (BEAKER) (test nxma=331) 11.7 K/ L 3.5-10.5 RED BLOOD CELL COUNT (BEAKER) (test rhtd=987) 4.84 M/ L 3.93-5.22 HEMOGLOBIN (BEAKER) (test vzri=610) 14.5 GM/DL 11.2-15.7 HEMATOCRIT (BEAKER) (test xrvq=591) 43.9 % 34.1-44.9 MEAN CORPUSCULAR VOLUME (BEAKER) (test xtea=752) 90.7 fL 79.4-94.8 MEAN CORPUSCULAR HEMOGLOBIN (BEAKER) (test 30.0 pg 25.6-32.2 pnfy=616) MEAN CORPUSCULAR HEMOGLOBIN CONC (BEAKER) (test 33.0 GM/DL 32.2-35.5 fesx=268) RED CELL DISTRIBUTION WIDTH (BEAKER) (test 15.1 % 11.7-14.4 dfaf=644) PLATELET COUNT (BEAKER) (test pgov=058) 167 K/CU MM 150-450 MEAN PLATELET VOLUME (BEAKER) (test lwcs=908) 11.0 fL 9.4-12.3 NUCLEATED RED BLOOD CELLS (BEAKER) (test 0 /100 WBC 0-0 gbzt=225) (CELLAVISION MANUAL DIFF)2019-06-28 13:11:00 Test Item Value Reference Range Comments NEUTROPHILS - REL (CELLAVISION)(BEAKER) (test 56 % rnoo=2259) LYMPHOCYTES - REL (CELLAVISION)(BEAKER) (test 4 % gobr=5874) MONOCYTES - REL (CELLAVISION)(BEAKER) (test 2 % xgbx=6933) BANDS - REL (CELLAVISION)(BEAKER) (test 37 % 0-10 hnlt=9020) ATYPICAL LYMPHOCYTES - REL (CELLAVISION)(BEAKER) 1 % 0-0 (test jsrz=0646) NEUTROPHILS - ABS (CELLAVISION)(BEAKER) (test 6.55 K/ul 1.56-6.13 lbdx=7690) LYMPHOCYTES - ABS (CELLAVISION)(BEAKER) (test 0.47 K/ul 1.18-3.74 oded=5880) MONOCYTES - ABS (CELLAVISION)(BEAKER) (test 0.23 K/uL 0.24-0.36 ecoq=5086) BANDS - ABS (CELLAVISION)(BEAKER) (test 4.33 K/uL 0.00-0.80 buwj=0387) ATYPICAL LYMPHOCYTES - ABS (CELLAVISION)(BEAKER) 0.12 K/uL 0.00-0.00 (test robw=2380) TOTAL COUNTED (BEAKER) (test bvpf=7081) 100 PLT MORPHOLOGY (BEAKER) (test khgz=771) Normal SMUDGE CELLS (BEAKER) (test wvzk=4130) Present ANISOCYTOSIS (BEAKER) (test djbi=093) 1+ few POIKILOCYTES (BEAKER) (test yjdi=459) 3+ many SCHISTOCYTES (BEAKER) (test foor=417) 1+ few JOSSY CELLS (BEAKER) (test hwan=865) 2+ moderate PLATELET CONCENTRATION (CELLAVISION)(BEAKER) Adequate (test yxwg=0265) Received comment: User comments: Slide comments:POCT-GLUCOSE [id number] 12: 54:00 Test Item Value Reference Range Comments POC-GLUCOSE METER (BEAKER) 186 mg/dL 70-110 TESTED AT [facility] [address] [facility] (test qjhv=0312) [facility] [address] BASIC METABOLIC [id number] 12:30:00 Test Item Value Reference Range Comments SODIUM (BEAKER) (test 133 meq/L 136-145 lpfi=586) POTASSIUM (BEAKER) (test 3.8 meq/L 3.5-5.1 Specimen moderately hemolyzed qgfx=333) CHLORIDE (BEAKER) (test 101 meq/L 98-107 shbv=694) CO2 (BEAKER) (test cnre=619) 20 meq/L 22-29 BLOOD UREA NITROGEN (BEAKER) 55 mg/dL 7-21 (test uzqp=433) CREATININE (BEAKER) (test 2.83 mg/dL 0.57-1.25 Specimen moderately hemolyzed tbzq=089) GLUCOSE RANDOM (BEAKER) 193 mg/dL 70-105 (test ingo=910) CALCIUM (BEAKER) (test 8.6 mg/dL 8.4-10.2 fsjv=741) EGFR (BEAKER) (test INSUFFICIENT CLINICAL DATA TO okqr=7883) CALCULATE ESTIMATED GFR. RAD, CHEST, 1 VIEW, NON [id number] 12:19:00Reason for exam:->sobShould this be performed at the bedside?->YesFINAL REPORT CLINICAL HISTORY: sob TECHNIQUE: 1 view of the chest. COMPARISON: 06/27/2019 IMPRESSION: Bilateral lower lung bandlike opacities are unchanged. There is no significant pleural fluid. The cardiomediastinal silhouette is magnified by technique. Signed: Antolin Jarrelleport Verified Date/Time: 06/28/2019 12:19: 20 [facility] B-TYPE NATRIURETIC FACTOR (BNP)2019-06-28 12:17:00 Test Item Value Reference Range Comments B-TYPE NATRIURETIC PEPTIDE (BEAKER) (test 1699 pg/mL 0-100 hrqr=394) BLOOD GAS, [id number] 11:45:00 Test Item Value Reference Range Comments PH ARTERIAL (BEAKER) (test ttes=669) 7.45 7.35-7.45 PCO2 ARTERIAL (BEAKER) (test bspe=010) 33 mmHg 35-45 PO2 ARTERIAL (BEAKER) (test ckck=288) 66 mmHg 80-90 O2 SATURATION ARTERIAL (BEAKER) (test xhte=764) 94.5 % 96.0-97.0 HCO3 ARTERIAL (BEAKER) (test nrds=689) 22 mmol/L 21-29 BASE EXCESS ARTERIAL (BEAKER) (test puyt=624) -1.0 mmol/L -2.0-3.0 PATIENT TEMPERATURE (BEAKER) (test erkm=8697) 36.4 C FIO2 (BEAKER) (test tlsz=7769) 30.0 % RAD, ABDOMEN/KUB, 1 VIEW [id number] 10:06:00Reason for exam:->abdominal distentionFINAL REPORT EXAM: AP abdominal radiographs, 2 images HISTORY PROVIDED: Abdominal distention COMPARISON: 06/26/2019 IMPRESSION: The bowel gas pattern is nonspecific but appears nonobstructive. While no definite free air is seen, this examination is insensitive for the detection offree air. Vascular stents project over the lower abdomen and left upper quadrant. No acute osseous abnormality. Signed: Elsa Carter MDReport Verified Date/Time: 06/28/2019 10:06:41 Reading Location: [facility] Mammo Reading Room 10: 06AMBASIC METABOLIC [id number] 06:46:00 Test Item Value Reference Range Comments SODIUM (BEAKER) (test 134 meq/L 136-145 zgnz=321) POTASSIUM (BEAKER) (test 3.9 meq/L 3.5-5.1 Specimen slightly hemolyzed rygz=934) CHLORIDE (BEAKER) (test 101 meq/L 98-107 fxfl=526) CO2 (BEAKER) (test opsc=991) 18 meq/L 22-29 BLOOD UREA NITROGEN (BEAKER) 53 mg/dL 7-21 (test ywij=063) CREATININE (BEAKER) (test 2.69 mg/dL 0.57-1.25 Specimen slightly hemolyzed tcip=956) GLUCOSE RANDOM (BEAKER) 190 mg/dL 70-105 (test nndt=868) CALCIUM (BEAKER) (test 8.6 mg/dL 8.4-10.2 qqik=142) EGFR (BEAKER) (test INSUFFICIENT CLINICAL DATA TO rlpd=7964) CALCULATE ESTIMATED GFR. [id number] 06:44:00 Test Item Value Reference Range Comments MAGNESIUM (BEAKER) (test 1.7 mg/dL 1.6-2.6 Specimen slightly hemolyzed kbic=521) U/S, RENAL, [id number] 04:41:00Reason for exam:->AKIFINAL REPORT U/S, RENAL, COMPLETEUltrasound of the Kidneys Clinical History:BARON Discussion: Sonographic evaluation of the kidneys is performed. Right kidney: 10.0 cm, with cortical thickness of 1.3 cm. Normal cortical echogenicity. No mass. No shadowing calculus. No hydronephrosis. Left kidney: 10.0 cm, with cortical thickness of 1.1 cm. Normal cortical echogenicity. [place]. No shadowing calculus. No hydronephrosis. Limited doppler evaluation of bilateral main renalarteries and veins demonstrate patency. Bladder: Contains a catheter. Impression: No acute findings Signed: Cuong Mcmanus MDReport Verified Date/Time: 06/28/2019 04:41:57 Electronically signedby: CUONG MCMANUS MD on 06/28/2019 04:41 AMBASIC METABOLIC [id number] 22:01:00 Test Item Value Reference Range Comments SODIUM (BEAKER) (test 131 meq/L 136-145 dutp=587) POTASSIUM (BEAKER) (test 4.1 meq/L 3.5-5.1 Specimen moderately hemolyzed iopb=620) CHLORIDE (BEAKER) (test 102 meq/L 98-107 bouc=528) CO2 (BEAKER) (test asnp=828) 15 meq/L 22-29 BLOOD UREA NITROGEN (BEAKER) 46 mg/dL 7-21 (test prme=884) CREATININE (BEAKER) (test 2.40 mg/dL 0.57-1.25 Specimen moderately hemolyzed wbdl=712) GLUCOSE RANDOM (BEAKER) 279 mg/dL 70-105 (test wzzw=728) CALCIUM (BEAKER) (test 7.6 mg/dL 8.4-10.2 boif=132) EGFR (BEAKER) (test INSUFFICIENT CLINICAL DATA TO lbha=7595) CALCULATE ESTIMATED GFR. OSMOLALITY, [id number] 21:57:00 Test Item Value Reference Range Comments OSMOLALITY URINE (BEAKER) (test wgds=465) 309 mOsm/kg 40-1,400 PROTEIN, RANDOM [id number] 21:57:00 Test Item Value Reference Range Comments PROTEIN, URINE (BEAKER) (test ajfw=6232) < mg/dL 0-14 CREATININE, RANDOM [id number] 21:52:00 Test Item Value Reference Range Comments CREATININE URINE (BEAKER) (test jtpa=110) 14.2 mg/dL Reference Range: No NormalsSODIUM, RANDOM [id number] 21:52:00 Test Item Value Reference Range Comments SODIUM URINE (BEAKER) (test uoep=630) 105 meq/L Reference Range: No NormalsURINALYSIS W/ [id number] 21:47:00 Test Item Value Reference Range Comments COLOR (BEAKER) (test lwyy=862) Light Yellow CLARITY (BEAKER) (test cgqe=938) Clear SPECIFIC GRAVITY UA (BEAKER) (test xfgh=743) 1.006 1.001-1.035 PH UA (BEAKER) (test svdf=421) 5.0 5.0-8.0 PROTEIN UA (BEAKER) (test qzwf=215) Negative Negative GLUCOSE UA (BEAKER) (test dzmo=550) Negative Negative KETONES UA (BEAKER) (test vzie=035) Negative Negative BILIRUBIN UA (BEAKER) (test qlzx=555) Negative Negative BLOOD UA (BEAKER) (test urpg=398) Negative Negative NITRITE UA (BEAKER) (test zjlx=292) Negative Negative LEUKOCYTE ESTERASE UA (BEAKER) (test eyqk=657) Large Negative UROBILINOGEN UA (BEAKER) (test qvho=531) 0.2 mg/dL 0.2-1.0 RBC UA (BEAKER) (test ntgc=677) 1 /HPF WBC UA (BEAKER) (test mqjt=403) 9 /HPF BACTERIA (BEAKER) (test kbmm=961) Occasional HYALINE CASTS (BEAKER) (test ekym=998) 2 /LPF GRANULAR CASTS (BEAKER) (test osoo=659) 5 /LPF YEAST (BEAKER) (test hljm=2115) Occasional SOURCE(BEAKER) (test lgda=8303) POCT-GLUCOSE [id number] 18:42:00 Test Item Value Reference Range Comments POC-GLUCOSE METER (BEAKER) 203 mg/dL 70-110 TESTED AT [facility] [address] [facility] (test mgga=7810) [facility] [address] B-TYPE NATRIURETIC FACTOR (BNP)2019-06-27 18:16:00 Test Item Value Reference Range Comments B-TYPE NATRIURETIC PEPTIDE (BEAKER) (test 2545 pg/mL 0-100 brck=430) BASIC METABOLIC [id number] 18:12:00 Test Item Value Reference Range Comments SODIUM (BEAKER) (test 135 meq/L 136-145 qsje=961) POTASSIUM (BEAKER) (test 4.7 meq/L 3.5-5.1 Specimen slightly hemolyzed vwnz=317) CHLORIDE (BEAKER) (test 105 meq/L 98-107 siqf=236) CO2 (BEAKER) (test epyv=996) 18 meq/L 22-29 BLOOD UREA NITROGEN (BEAKER) 46 mg/dL 7-21 (test umuo=704) CREATININE (BEAKER) (test 2.43 mg/dL 0.57-1.25 Specimen slightly hemolyzed kpvs=771) GLUCOSE RANDOM (BEAKER) 197 mg/dL 70-105 (test mjhz=557) CALCIUM (BEAKER) (test 8.5 mg/dL 8.4-10.2 oxnf=009) EGFR (BEAKER) (test INSUFFICIENT CLINICAL DATA TO sxxm=6747) CALCULATE ESTIMATED GFR. LACTIC ACID, [id number] 18:06:00 Test Item Value Reference Range Comments LACTATE BLOOD ARTERIAL (2) 1.6 mmol/L 0.5-2.2 Specimen slightly hemolyzed (BEAKER) (test mqho=7565) BLOOD GAS, [id number] 15:46:00 Test Item Value Reference Range Comments PH ARTERIAL (BEAKER) (test iurj=630) 7.35 7.35-7.45 PCO2 ARTERIAL (BEAKER) (test xgkx=735) 37 mmHg 35-45 PO2 ARTERIAL (BEAKER) (test vbhs=724) 83 mmHg 80-90 O2 SATURATION ARTERIAL (BEAKER) (test zcfy=206) 95.8 % 96.0-97.0 HCO3 ARTERIAL (BEAKER) (test wznu=977) 20 mmol/L 21-29 BASE EXCESS ARTERIAL (BEAKER) (test rwcc=111) -5.1 mmol/L -2.0-3.0 PATIENT TEMPERATURE (BEAKER) (test vlcy=0479) 37.0 C FIO2 (BEAKER) (test elpe=8572) 50.0 % RAD, CHEST, 1 VIEW, NON [id number] 15:01:00Reason for exam:->sobShould this be performed at the bedside?->YesFINAL REPORT History: Shortness of breath Comparison: 06/26/2019 Findings: Since the prior study, the endotracheal tube and nasogastric tube were removed. Lung volumes are similar to the prior study. Mild interstitial edema. Foci of subsegmental atelectasis are noted in the lower lungs, similar in appearance. Suspected scarring at the right lung apex No pleural effusions or pneumothorax. The heart shadow is mildly enlarged. The thoracic aorta is tortuous and calcified. Signed : Elsa Pierson MDReport Verified Date/Time: 06/27/2019 15:01:18 Reading Location: [facility] B1 C013X OrthoConsult Reading Room BLOOD GAS, [id number] 14:35:00 Test Item Value Reference Range Comments PH ARTERIAL (BEAKER) (test dkbi=171) 7.29 7.35-7.45 PCO2 ARTERIAL (BEAKER) (test xbjg=335) 46 mmHg 35-45 PO2 ARTERIAL (BEAKER) (test jpsc=008) 115 mmHg 80-90 O2 SATURATION ARTERIAL (BEAKER) (test ossw=088) 97.7 % 96.0-97.0 HCO3 ARTERIAL (BEAKER) (test kbdi=403) 21 mmol/L 21-29 BASE EXCESS ARTERIAL (BEAKER) (test wyrw=374) -5.5 mmol/L -2.0-3.0 PATIENT TEMPERATURE (BEAKER) (test coeh=1104) 36.8 C FIO2 (BEAKER) (test kosu=2457) 100.0 % POCT-GLUCOSE [id number] 12:41:00 Test Item Value Reference Range Comments POC-GLUCOSE METER (BEAKER) 203 mg/dL 70-110 TESTED AT [facility] [address] [facility] (test rktw=2865) [facility] [address] RAPID INFLUENZA A&B [id number] 10:04:00 Test Item Value Reference Range Comments RAPID INFLUENZA A AG (BEAKER) (test Negative Negative, Inconclusive oprz=6873) RAPID INFLUENZA B AG (BEAKER) (test Negative Negative, Inconclusive kjez=3514) CBC W/PLT COUNT & AUTO [id number] 07:43:00 Test Item Value Reference Range Comments WHITE BLOOD CELL COUNT (BEAKER) (test hyur=315) 16.7 K/ L 3.5-10.5 RED BLOOD CELL COUNT (BEAKER) (test gjnx=814) 4.81 M/ L 3.93-5.22 HEMOGLOBIN (BEAKER) (test icnc=721) 14.4 GM/DL 11.2-15.7 HEMATOCRIT (BEAKER) (test ldwi=588) 45.5 % 34.1-44.9 MEAN CORPUSCULAR VOLUME (BEAKER) (test yrze=960) 94.6 fL 79.4-94.8 MEAN CORPUSCULAR HEMOGLOBIN (BEAKER) (test 29.9 pg 25.6-32.2 lkdo=376) MEAN CORPUSCULAR HEMOGLOBIN CONC (BEAKER) (test 31.6 GM/DL 32.2-35.5 lpcu=739) RED CELL DISTRIBUTION WIDTH (BEAKER) (test 15.0 % 11.7-14.4 aerj=967) PLATELET COUNT (BEAKER) (test fxro=451) 182 K/CU MM 150-450 MEAN PLATELET VOLUME (BEAKER) (test gxlk=795) 9.6 fL 9.4-12.3 NUCLEATED RED BLOOD CELLS (BEAKER) (test 0 /100 WBC 0-0 obop=051) (CELLAVISION MANUAL DIFF)2019-06-27 07:43:00 Test Item Value Reference Range Comments NEUTROPHILS - REL (CELLAVISION)(BEAKER) (test 82 % jjox=5592) LYMPHOCYTES - REL (CELLAVISION)(BEAKER) (test 5 % asje=1325) MONOCYTES - REL (CELLAVISION)(BEAKER) (test 3 % pgxa=4085) BANDS - REL (CELLAVISION)(BEAKER) (test 10 % 0-10 yiog=0192) NEUTROPHILS - ABS (CELLAVISION)(BEAKER) (test 13.69 K/ul 1.56-6.13 mrnb=4881) LYMPHOCYTES - ABS (CELLAVISION)(BEAKER) (test 0.84 K/ul 1.18-3.74 mczs=3984) MONOCYTES - ABS (CELLAVISION)(BEAKER) (test 0.50 K/uL 0.24-0.36 qrdg=3172) BANDS - ABS (CELLAVISION)(BEAKER) (test 1.67 K/uL 0.00-0.80 gwep=9354) TOTAL COUNTED (BEAKER) (test hldn=6383) 100 RBC MORPHOLOGY (BEAKER) (test wags=834) Normal WBC MORPHOLOGY (BEAKER) (test epof=262) Normal PLT MORPHOLOGY (BEAKER) (test dgeq=000) Normal ARTIFACT (CELLAVISION)(BEAKER) (test zzvw=6164) Present PLATELET CONCENTRATION (CELLAVISION)(BEAKER) Adequate (test mmew=3961) Received comment: User comments: Slide comments:POCT-GLUCOSE [id number] 06: 24:00 Test Item Value Reference Range Comments POC-GLUCOSE METER (BEAKER) 161 mg/dL 70-110 TESTED AT [address] (test njup=1733) [facility] [address] TROPONIN [id number] 05:49:00 Test Item Value Reference Range Comments TROPONIN I (BEAKER) (test xgxh=122) 68.65 ng/mL 0.00-0.03 Troponin I (TnI) levels must be interpreted in the context of the presenting symptoms and the clinical findings. Elevated TnI levels indicate myocardial damage, but are not specific for ischemic heart disease. Elevated TnI levels are seen in patients with other cardiac conditions (including myocarditis and congestive heart failure), and slight TnI elevations occur in patients with other conditions, including sepsis, renal failure, acidosis, acute neurological disease, and persistent tachyarrhythmia.BASIC METABOLIC [id number] 04:54:00 Test Item Value Reference Range Comments SODIUM (BEAKER) (test 136 meq/L 136-145 zxki=310) POTASSIUM (BEAKER) (test 4.1 meq/L 3.5-5.1 Specimen slightly hemolyzed ubmy=744) CHLORIDE (BEAKER) (test 105 meq/L 98-107 szig=198) CO2 (BEAKER) (test qdyf=766) 21 meq/L 22-29 BLOOD UREA NITROGEN (BEAKER) 42 mg/dL 7-21 (test zlqx=727) CREATININE (BEAKER) (test 2.44 mg/dL 0.57-1.25 Specimen slightly hemolyzed snml=591) GLUCOSE RANDOM (BEAKER) 165 mg/dL 70-105 (test rxxs=953) CALCIUM (BEAKER) (test 8.1 mg/dL 8.4-10.2 thns=882) EGFR (BEAKER) (test INSUFFICIENT CLINICAL DATA TO kkxj=2918) CALCULATE ESTIMATED GFR. [id number] 04:52:00 Test Item Value Reference Range Comments MAGNESIUM (BEAKER) (test 1.9 mg/dL 1.6-2.6 Specimen slightly hemolyzed hrji=297) POCT-GLUCOSE [id number] 00:41:00 Test Item Value Reference Range Comments POC-GLUCOSE METER (BEAKER) 144 mg/dL 70-110 TESTED AT [facility] [address] [facility] (test wdwm=6045) [facility] [address] CBC (HEMOGRAM ONLY)2019-06-26 23:34:00 Test Item Value Reference Range Comments WHITE BLOOD CELL COUNT (BEAKER) (test nnkx=630) 15.9 K/ L 3.5-10.5 RED BLOOD CELL COUNT (BEAKER) (test poma=782) 4.21 M/ L 3.93-5.22 HEMOGLOBIN (BEAKER) (test tnkw=598) 12.8 GM/DL 11.2-15.7 HEMATOCRIT (BEAKER) (test bmmb=976) 40.1 % 34.1-44.9 MEAN CORPUSCULAR VOLUME (BEAKER) (test rqyd=953) 95.2 fL 79.4-94.8 MEAN CORPUSCULAR HEMOGLOBIN (BEAKER) (test 30.4 pg 25.6-32.2 fpbu=591) MEAN CORPUSCULAR HEMOGLOBIN CONC (BEAKER) (test 31.9 GM/DL 32.2-35.5 vxtc=622) RED CELL DISTRIBUTION WIDTH (BEAKER) (test 15.1 % 11.7-14.4 tiof=315) PLATELET COUNT (BEAKER) (test udng=273) 186 K/CU MM 150-450 MEAN PLATELET VOLUME (BEAKER) (test tojo=786) 9.4 fL 9.4-12.3 NUCLEATED RED BLOOD CELLS (BEAKER) (test 0 /100 WBC 0-0 snvz=972) POCT-GLUCOSE [id number] 18:37:00 Test Item Value Reference Range Comments POC-GLUCOSE METER (BEAKER) 134 mg/dL 70-110 TESTED AT [facility] [address] [facility] (test miqm=0990) [facility] [address] RAD, CHEST, 1 VIEW, NON [id number] 13:19:00Reason for exam:->respiratory failure/COPD intubatedFINAL REPORT History: Respiratory failure, COPD, intubation Comparison: No comparison chest imaging Findings: An endotracheal tube is present, with its tip 4 cm proximal to the esteban. Nasogastric tube passes below the diaphragm, with the tip not imaged. Mild bibasilar curvilinear opacities suggestive of atelectasis or pneumonia. No comparison studies are available to determine if some of this represents chronic scar. No pleural effusion or pneumothorax. Cardiac shadow normalsize. Thoracic aorta tortuous. Multiple external cardiac monitoring leads overlie the chest. Signed:Elsa Pierson MDReport Verified Date/Time: 06/26/2019 13:19:00 Reading Location: [address] Ortho Consult Reading Room CBC W/PLT COUNT & AUTO [id number] 11:40:00 Test Item Value Reference Range Comments WHITE BLOOD CELL COUNT (BEAKER) (test omyj=956) 17.0 K/ L 3.5-10.5 RED BLOOD CELL COUNT (BEAKER) (test eerf=717) 4.44 M/ L 3.93-5.22 HEMOGLOBIN (BEAKER) (test zsma=533) 13.4 GM/DL 11.2-15.7 HEMATOCRIT (BEAKER) (test mteo=750) 42.0 % 34.1-44.9 MEAN CORPUSCULAR VOLUME (BEAKER) (test xfcz=978) 94.6 fL 79.4-94.8 MEAN CORPUSCULAR HEMOGLOBIN (BEAKER) (test 30.2 pg 25.6-32.2 leuc=461) MEAN CORPUSCULAR HEMOGLOBIN CONC (BEAKER) (test 31.9 GM/DL 32.2-35.5 zbil=057) RED CELL DISTRIBUTION WIDTH (BEAKER) (test 15.0 % 11.7-14.4 llid=315) PLATELET COUNT (BEAKER) (test yvuy=819) 209 K/CU MM 150-450 MEAN PLATELET VOLUME (BEAKER) (test qsmw=886) 9.7 fL 9.4-12.3 NUCLEATED RED BLOOD CELLS (BEAKER) (test 0 /100 WBC 0-0 cqja=126) NEUTROPHILS RELATIVE PERCENT (BEAKER) (test 92 % ypfe=117) LYMPHOCYTES RELATIVE PERCENT (BEAKER) (test 3 % qlld=233) MONOCYTES RELATIVE PERCENT (BEAKER) (test 4 % acoj=970) EOSINOPHILS RELATIVE PERCENT (BEAKER) (test 0 % kyzz=783) BASOPHILS RELATIVE PERCENT (BEAKER) (test 0 % ezfq=273) NEUTROPHILS ABSOLUTE COUNT (BEAKER) (test 15.68 K/ L 1.56-6.13 rmxv=951) LYMPHOCYTES ABSOLUTE COUNT (BEAKER) (test 0.52 K/ L 1.18-3.74 ionm=864) MONOCYTES ABSOLUTE COUNT (BEAKER) (test 0.71 K/ L 0.24-0.36 pfqt=682) EOSINOPHILS ABSOLUTE COUNT (BEAKER) (test 0.00 K/ L 0.04-0.36 tsxz=950) BASOPHILS ABSOLUTE COUNT (BEAKER) (test 0.03 K/ L 0.01-0.08 xvby=317) IMMATURE GRANULOCYTES-RELATIVE PERCENT (BEAKER) 1 % 0-1 (test ztfg=7779) POCT-GLUCOSE [id number] 11:29:00 Test Item Value Reference Range Comments POC-GLUCOSE METER (BEAKER) 241 mg/dL 70-110 TESTED AT [facility] [address] (test jhxz=2784) [place] [address] CBC W/PLT COUNT & AUTO [id number] 10:15:00 Test Item Value Reference Range Comments WHITE BLOOD CELL COUNT (BEAKER) (test mjvi=307) 17.5 K/ L 3.5-10.5 RED BLOOD CELL COUNT (BEAKER) (test mpdv=987) 4.52 M/ L 3.93-5.22 HEMOGLOBIN (BEAKER) (test lcwd=803) 13.7 GM/DL 11.2-15.7 HEMATOCRIT (BEAKER) (test fuku=583) 44.1 % 34.1-44.9 MEAN CORPUSCULAR VOLUME (BEAKER) (test hjme=193) 97.6 fL 79.4-94.8 MEAN CORPUSCULAR HEMOGLOBIN (BEAKER) (test 30.3 pg 25.6-32.2 srtm=192) MEAN CORPUSCULAR HEMOGLOBIN CONC (BEAKER) (test 31.1 GM/DL 32.2-35.5 mtrz=822) RED CELL DISTRIBUTION WIDTH (BEAKER) (test 14.9 % 11.7-14.4 jblq=968) PLATELET COUNT (BEAKER) (test grge=963) 219 K/CU MM 150-450 MEAN PLATELET VOLUME (BEAKER) (test loly=909) 9.6 fL 9.4-12.3 NUCLEATED RED BLOOD CELLS (BEAKER) (test 0 /100 WBC 0-0 zgyv=092) (CELLAVISION MANUAL DIFF)2019-06-26 10:15:00 Test Item Value Reference Range Comments NEUTROPHILS - REL (CELLAVISION)(BEAKER) (test 86 % ztno=7618) LYMPHOCYTES - REL (CELLAVISION)(BEAKER) (test 2 % bpfz=1447) MONOCYTES - REL (CELLAVISION)(BEAKER) (test 2 % nsgx=2442) METAMYELOCYTES - REL (CELLAVISION)(BEAKER) (test 1 % 0-0 jbtz=5613) BANDS - REL (CELLAVISION)(BEAKER) (test 9 % 0-10 dbgz=2462) NEUTROPHILS - ABS (CELLAVISION)(BEAKER) (test 15.05 K/ul 1.56-6.13 dizw=1802) LYMPHOCYTES - ABS (CELLAVISION)(BEAKER) (test 0.35 K/ul 1.18-3.74 wyth=4143) MONOCYTES - ABS (CELLAVISION)(BEAKER) (test 0.35 K/uL 0.24-0.36 tcst=1190) METAMYELOCYTES - ABS (CELLAVISION)(BEAKER) (test 0.18 K/uL 0.00-0.00 jihb=9755) BANDS - ABS (CELLAVISION)(BEAKER) (test 1.58 K/uL 0.00-0.80 aasg=7470) TOTAL COUNTED (BEAKER) (test voyi=4480) 100 WBC MORPHOLOGY (BEAKER) (test xxvn=959) Normal PLT MORPHOLOGY (BEAKER) (test kuok=895) Normal HYPOCHROMIA (BEAKER) (test grfb=190) 1+ few ANISOCYTOSIS (BEAKER) (test xkky=833) 1+ few MACROCYTES (BEAKER) (test uksu=065) 1+ few POIKILOCYTES (BEAKER) (test yxhx=038) 1+ few JOSSY CELLS (BEAKER) (test ywyh=413) 1+ few ARTIFACT (CELLAVISION)(BEAKER) (test vumi=3209) Present PLATELET CONCENTRATION (CELLAVISION)(BEAKER) Adequate (test azkg=9246) Received comment: User comments: Slide comments:HEMOGLOBIN [id number] 08:52: 00 Test Item Value Reference Range Comments HEMOGLOBIN A1C (BEAKER) (test mocu=185) 6.9 % 4.3-6.1 RAD, ABDOMEN/KUB, 1 VIEW [id number] 08:28:00Reason for exam:->ileusShould this be performed at the bedside?->YesFINAL REPORT CLINICAL HISTORY: ileus TECHNIQUE: Supine abdomen COMPARISON: None IMPRESSION: There is a nasogastric tube in a moderately gas-distended stomach. There is a nonspecific paucity of bowel gas, and dilated fluid-filled loops of bowel cannot be excluded. Free air and air-fluid levels are not seen but cannot be definitively excluded on the supine view. There is a left epigastric region vascular stent. Signed: Antolin Jarrell MDReport Verified Date/Time: 06/26/2019 08:28:56 Reading Location: [facility] B1 C013V Neuro Reading Room POCT-GLUCOSE [id number] 07:49:00 Test Item Value Reference Range Comments POC-GLUCOSE METER (BEAKER) 275 mg/dL 70-110 TESTED AT [facility] [address] (test evnw=3042) [facility] [address] TROPONIN [id number] 06:57:00 Test Item Value Reference Range Comments TROPONIN I (BEAKER) (test hfaq=585) 432.80 ng/mL 0.00-0.03 Troponin I (TnI) levels must be interpreted in the context of the presenting symptoms and the clinical findings. Elevated TnI levels indicate myocardial damage, but are not specific for ischemic heart disease. Elevated TnI levels are seen in patients with other cardiac conditions (including myocarditis and congestive heart failure), and slight TnI elevations occur in patients with other conditions, including sepsis, renal failure, acidosis, acute neurological disease, and persistent tachyarrhythmia.BLOOD GAS, [id number] 06:30:00 Test Item Value Reference Range Comments PH ARTERIAL (BEAKER) (test uwta=548) 7.31 7.35-7.45 PCO2 ARTERIAL (BEAKER) (test yunc=284) 42 mmHg 35-45 PO2 ARTERIAL (BEAKER) (test twzk=502) 90 mmHg 80-90 O2 SATURATION ARTERIAL (BEAKER) (test ptiz=399) 96.5 % 96.0-97.0 HCO3 ARTERIAL (BEAKER) (test bzoc=995) 21 mmol/L 21-29 BASE EXCESS ARTERIAL (BEAKER) (test zyet=506) -5.5 mmol/L -2.0-3.0 PATIENT TEMPERATURE (BEAKER) (test ufqx=3635) 36.4 C FIO2 (BEAKER) (test bylz=3415) 60.0 % B-TYPE NATRIURETIC FACTOR (BNP)2019-06-26 06:22:00 Test Item Value Reference Range Comments B-TYPE NATRIURETIC PEPTIDE (BEAKER) (test 1525 pg/mL 0-100 zwvs=765) [id number] 06:16:00 Test Item Value Reference Range Comments MAGNESIUM (BEAKER) (test faqo=422) 1.8 mg/dL 1.6-2.6 LIPID [id number] 06:16:00 Test Item Value Reference Range Comments TRIGLYCERIDES (BEAKER) (test kbrr=982) 61 mg/dL CHOLESTEROL (BEAKER) (test cyqi=804) 179 mg/dL HDL CHOLESTEROL (BEAKER) (test ukpk=903) 34 mg/dL LDL CHOLESTEROL CALCULATED (BEAKER) (test 133 mg/dL ytfm=036) Triglyceride Reference Range: Low Risk <150 Borderline 150- 199 High Risk 200-499 Very High Risk >=500Cholesterol Reference Range: Low Risk <200 Borderline 200-239 High Risk > 240HDL Cholesterol Reference Range: Low Risk >=60 High Risk <40LDL Cholesterol Reference Range: Optimal <100 Near Optimal 100-129 Borderline 130-159 High 160-189 Very High >=190BASIC METABOLIC [id number] 06:16:00 Test Item Value Reference Range Comments SODIUM (BEAKER) (test 132 meq/L 136-145 coqg=926) POTASSIUM (BEAKER) (test 4.3 meq/L 3.5-5.1 ycre=526) CHLORIDE (BEAKER) (test 103 meq/L 98-107 luij=801) CO2 (BEAKER) (test alwh=805) 20 meq/L 22-29 BLOOD UREA NITROGEN (BEAKER) 28 mg/dL 7-21 (test unrm=370) CREATININE (BEAKER) (test 2.17 mg/dL 0.57-1.25 cwqr=412) GLUCOSE RANDOM (BEAKER) 274 mg/dL 70-105 (test vywn=716) CALCIUM (BEAKER) (test 7.6 mg/dL 8.4-10.2 dqak=540) EGFR (BEAKER) (test INSUFFICIENT CLINICAL DATA TO uyrj=4326) CALCULATE ESTIMATED GFR. [id number] 04:05:00 Test Item Value Reference Range Comments ACTIVATED CLOTTING TIME 301 sec Reference Range: 74-137 (BEAKER) (test ulif=875) seconds, Baseline/TESTED AT [facility] [address] [facility] [address] [id number] 03:52:00 Test Item Value Reference Range Comments ACTIVATED CLOTTING TIME 290 sec Reference Range: 74-137 (BEAKER) (test khem=704) seconds, Baseline/TESTED AT [place] [address] [id number] 03:44:00 Test Item Value Reference Range Comments ACTIVATED CLOTTING TIME 246 sec Reference Range: 74-137 (BEAKER) (test edlu=849) seconds, Baseline/TESTED AT [place] [address] [id number] 03:44:00 Test Item Value Reference Range Comments ACTIVATED CLOTTING TIME 202 sec Reference Range: 74-137 (BEAKER) (test rdcr=315) seconds, Baseline/TESTED AT [place] [address]
== END 2019-08-01 18:03 | disposition home health service (06) | DRG 683 ==
LOC: ER 10:10 → ERHOLD 12:54 → 4TH 13:57
PROVIDERS: ADMIT Family Medicine; ATTEND Family Medicine
PROC: 0T9B70Z Drainage of Bladder with Drainage Device, Via Natural or Artificial Opening (ICD-10-PCS; 2019-07-26)
PROC: 5A1D70Z Performance of Urinary Filtration, Intermittent, Less than 6 Hours Per Day (ICD-10-PCS; 2019-07-27)
PROC: 05HM33Z Insertion of Infusion Device into Right Internal Jugular Vein, Percutaneous Approach (ICD-10-PCS; principal; 2019-07-27 07:30)
PROC: 5A1D70Z Performance of Urinary Filtration, Intermittent, Less than 6 Hours Per Day (ICD-10-PCS; 2019-07-28)
PROC: 5A1D70Z Performance of Urinary Filtration, Intermittent, Less than 6 Hours Per Day (ICD-10-PCS; 2019-07-30)
DX: N17.9 Acute kidney failure, unspecified (principal); I48.20 Chronic atrial fibrillation, unspecified; N30.00 Acute cystitis without hematuria; I13.2 Hypertensive heart and chronic kidney disease with heart failure and with stage 5 chronic kidney disease, or end stage renal disease; R78.81 Bacteremia; E44.0 Moderate protein-calorie malnutrition; I50.32 Chronic diastolic (congestive) heart failure; D50.9 Iron deficiency anemia, unspecified; I25.10 Atherosclerotic heart disease of native coronary artery without angina pectoris; I10 Essential (primary) hypertension; J44.9 Chronic obstructive pulmonary disease, unspecified; E78.5 Hyperlipidemia, unspecified; E11.22 Type 2 diabetes mellitus with diabetic chronic kidney disease; I48.0 Paroxysmal atrial fibrillation; D63.1 Anemia in chronic kidney disease; N18.6 End stage renal disease; B96.1 Klebsiella pneumoniae [K. pneumoniae] as the cause of diseases classified elsewhere; I71.4 Abdominal aortic aneurysm, without rupture; I45.10 Unspecified right bundle-branch block; F17.200 Nicotine dependence, unspecified, uncomplicated; Z99.81 Dependence on supplemental oxygen; Z79.01 Long term (current) use of anticoagulants; Z68.23 Body mass index [BMI] 23.0-23.9, adult; Z99.2 Dependence on renal dialysis
CPT/HCPCS: 36415; 51702; 71045; 74176; 76000; 76377; 76770; 80048; 80061; 80076; 81003; 82550; 82553; 82607; 82728; 82947; 83036; 83520; 83540; 83615; 83690; 83735; 83880; 84165; 84166; 84439; 84443; 84466; 84484; 85025; 85610; 86021; 86160; 86334; 86704; 86706; 86803; 86850; 86900; 86901; 87040; 87077; 87086; 87088; 87186; 87205; 87340; 90935; 93005; 93306; 96360; 96361; 99285; C1752; J0330; J0690; J0696; J1644; J2704; J2916; J3010; J7040; J7512

== ENCOUNTER → 2019-08-19 | Day surgery (SDC) | payer OTHER ==
[~2019-08-19] MED LIST: FUROSEMIDE 40 MG/4 ML VIAL ONE; NA CHLORIDE 0.9% 250 ML ONE
--- OUTSIDE RECORDS SUMMARY | 2019-08-19 10:07 | XMS REPORT ---
:1950 [facility] Organization [facility] Address [address] [place] [address] Care Team Providers Name Role Phone IOANA [...] (BEAKER) (test 166 mg/dL 70-110 TESTED AT [address] tlji=5252) [facility] [address] POCT-GLUCOSE [id number] 12:21:00 Test Item Value Reference Range Comments POC-GLUCOSE METER (BEAKER) 208 mg/dL 70-110 TESTED AT [address] (test mcoj=8374) [place] [id number] POCT-GLUCOSE [id number] 08:37:00 Test Item Value Reference Range Comments POC-GLUCOSE METER (BEAKER) 123 mg/dL 70-110 TESTED AT [address] (test uiyz=7327) [place] [id number] BASIC METABOLIC [id number] 07:25:00 Test Item Value Reference Range Comments SODIUM (BEAKER) (test 133 meq/L 136-145 qmbf=525) POTASSIUM (BEAKER) (test 3.7 meq/L 3.5-5.1 mmtl=407) CHLORIDE (BEAKER) (test 101 meq/L 98-107 xnpc=019) CO2 (BEAKER) (test 21 meq/L 22-29 sfin=559) BLOOD UREA NITROGEN 65 mg/dL 7-21 (BEAKER) (test brfv=825) CREATININE (BEAKER) (test 3.63 mg/dL 0.57-1.25 vxxq=556) GLUCOSE RANDOM (BEAKER) 107 mg/dL 70-105 (test loeg=622) CALCIUM (BEAKER) (test 8.2 mg/dL 8.4-10.2 bnmw=458) EGFR (BEAKER) (test 12 mL/min/1.73 sq m ESTIMATED GFR IS NOT deba=0951) ACCURATE CREATININE CLEARANCE IN PREDICTING GLOMERULAR FILTRATION RATE. ESTIMATED GFR IS NOT APPLICABLE FOR DIALYSIS PATIENTS. [id number] 07:23:00 Test Item Value Reference Range Comments PHOSPHORUS (BEAKER) (test fdpi=778) 4.0 mg/dL 2.3-4.7 [id number] 07:23:00 Test Item Value Reference Range Comments MAGNESIUM (BEAKER) (test mghc=124) 2.1 mg/dL 1.6-2.6 CALCIUM, [id number] 06:57:00 Test Item Value Reference Range Comments CALCIUM IONIZED (BEAKER) (test xohx=661) 1.06 mmol/L 1.12-1.27 PH, BLOOD (BEAKER) (test gbmp=3164) 7.41 B-TYPE NATRIURETIC FACTOR (BNP)2019-07-12 06:27:00 Test Item Value Reference Range Comments B-TYPE NATRIURETIC PEPTIDE (BEAKER) (test 1549 pg/mL 0-100 cysb=770) CBC W/PLT COUNT & AUTO [id number] 05:46:00 Test Item Value Reference Range Comments WHITE BLOOD CELL COUNT (BEAKER) (test mdxy=212) 11.2 K/ L 3.5-10.5 RED BLOOD CELL COUNT (BEAKER) (test tlfd=339) 2.72 M/ L 3.93-5.22 HEMOGLOBIN (BEAKER) (test mmqo=679) 8.1 GM/DL 11.2-15.7 HEMATOCRIT (BEAKER) (test pxct=440) 25.6 % 34.1-44.9 MEAN CORPUSCULAR VOLUME (BEAKER) (test afxu=176) 94.1 fL 79.4-94.8 MEAN CORPUSCULAR HEMOGLOBIN (BEAKER) (test 29.8 pg 25.6-32.2 xxoa=388) MEAN CORPUSCULAR HEMOGLOBIN CONC (BEAKER) (test 31.6 GM/DL 32.2-35.5 zadp=536) RED CELL DISTRIBUTION WIDTH (BEAKER) (test 15.2 % 11.7-14.4 ccwe=363) PLATELET COUNT (BEAKER) (test kvaj=616) 226 K/CU MM 150-450 MEAN PLATELET VOLUME (BEAKER) (test vogz=693) 12.0 fL 9.4-12.3 NUCLEATED RED BLOOD CELLS (BEAKER) (test 0 /100 WBC 0-0 xqtm=517) NEUTROPHILS RELATIVE PERCENT (BEAKER) (test 81 % snmh=662) LYMPHOCYTES RELATIVE PERCENT (BEAKER) (test 9 % fsky=471) MONOCYTES RELATIVE PERCENT (BEAKER) (test 5 % arld=661) EOSINOPHILS RELATIVE PERCENT (BEAKER) (test 2 % tdgu=390) BASOPHILS RELATIVE PERCENT (BEAKER) (test 0 % nrfz=786) NEUTROPHILS ABSOLUTE COUNT (BEAKER) (test 9.11 K/ L 1.56-6.13 tfze=264) LYMPHOCYTES ABSOLUTE COUNT (BEAKER) (test 1.06 K/ L 1.18-3.74 klfn=438) MONOCYTES ABSOLUTE COUNT (BEAKER) (test 0.61 K/ L 0.24-0.36 cuwm=476) EOSINOPHILS ABSOLUTE COUNT (BEAKER) (test 0.27 K/ L 0.04-0.36 rfbd=892) BASOPHILS ABSOLUTE COUNT (BEAKER) (test 0.04 K/ L 0.01-0.08 nebg=608) IMMATURE GRANULOCYTES-RELATIVE PERCENT (BEAKER) 1 % 0-1 (test shob=4929) POCT-GLUCOSE [id number] 23:24:00 Test Item Value Reference Range Comments POC-GLUCOSE METER (BEAKER) 115 mg/dL 70-110 TESTED AT [address] (test qrzt=7843) [place] [address] POCT-GLUCOSE [id number] 17:28:00 Test Item Value Reference Range Comments POC-GLUCOSE METER (BEAKER) 233 mg/dL 70-110 TESTED AT [address] (test hhmo=3339) [place] [id number] POCT-GLUCOSE [id number] 08:05:00 Test Item Value Reference Range Comments POC-GLUCOSE METER (BEAKER) 207 mg/dL 70-110 TESTED AT [address] (test ivcx=7339) [place] [id number] BASIC METABOLIC [id number] 05:43:00 Test Item Value Reference Range Comments SODIUM (BEAKER) (test 137 meq/L 136-145 ffdk=550) POTASSIUM (BEAKER) (test 4.0 meq/L 3.5-5.1 kxcy=346) CHLORIDE (BEAKER) (test 103 meq/L 98-107 fdpm=669) CO2 (BEAKER) (test 24 meq/L 22-29 ivvs=564) BLOOD UREA NITROGEN 69 mg/dL 7-21 (BEAKER) (test pyll=207) CREATININE (BEAKER) (test 3.71 mg/dL 0.57-1.25 sqcg=973) GLUCOSE RANDOM (BEAKER) 111 mg/dL 70-105 (test tweu=746) CALCIUM (BEAKER) (test 8.4 mg/dL 8.4-10.2 ddyr=046) EGFR (BEAKER) (test 12 mL/min/1.73 sq m ESTIMATED GFR IS NOT rbqt=7557) ACCURATE CREATININE CLEARANCE IN PREDICTING GLOMERULAR FILTRATION RATE. ESTIMATED GFR IS NOT APPLICABLE FOR DIALYSIS PATIENTS. CALCIUM, [id number] 05:36:00 Test Item Value Reference Range Comments CALCIUM IONIZED (BEAKER) (test wjhm=042) 1.03 mmol/L 1.12-1.27 PH, BLOOD (BEAKER) (test wdxd=4348) 7.43 URIC [id number] 05:32:00 Test Item Value Reference Range Comments URIC ACID (BEAKER) (test ucds=142) 9.9 mg/dL 2.6-7.2 [id number] 05:32:00 Test Item Value Reference Range Comments MAGNESIUM (BEAKER) (test cssm=020) 2.1 mg/dL 1.6-2.6 [id number] 05:32:00 Test Item Value Reference Range Comments PHOSPHORUS (BEAKER) (test fcer=866) 4.7 mg/dL 2.3-4.7 B-TYPE NATRIURETIC FACTOR (BNP)2019-07-11 05:29:00 Test Item Value Reference Range Comments B-TYPE NATRIURETIC PEPTIDE (BEAKER) (test 1730 pg/mL 0-100 azzb=640) CBC W/PLT COUNT & AUTO [id number] 05:24:00 Test Item Value Reference Range Comments WHITE BLOOD CELL COUNT (BEAKER) (test abij=122) 12.5 K/ L 3.5-10.5 RED BLOOD CELL COUNT (BEAKER) (test ydvq=490) 2.83 M/ L 3.93-5.22 HEMOGLOBIN (BEAKER) (test odcv=001) 8.5 GM/DL 11.2-15.7 HEMATOCRIT (BEAKER) (test yrum=838) 27.2 % 34.1-44.9 MEAN CORPUSCULAR VOLUME (BEAKER) (test efgl=574) 96.1 fL 79.4-94.8 MEAN CORPUSCULAR HEMOGLOBIN (BEAKER) (test 30.0 pg 25.6-32.2 dnvb=452) MEAN CORPUSCULAR HEMOGLOBIN CONC (BEAKER) (test 31.3 GM/DL 32.2-35.5 tjiq=071) RED CELL DISTRIBUTION WIDTH (BEAKER) (test 15.1 % 11.7-14.4 wwip=311) PLATELET COUNT (BEAKER) (test gjpw=786) 213 K/CU MM 150-450 MEAN PLATELET VOLUME (BEAKER) (test lqdc=773) 11.8 fL 9.4-12.3 NUCLEATED RED BLOOD CELLS (BEAKER) (test 0 /100 WBC 0-0 zusx=598) NEUTROPHILS RELATIVE PERCENT (BEAKER) (test 85 % lfim=272) LYMPHOCYTES RELATIVE PERCENT (BEAKER) (test 8 % qklj=089) MONOCYTES RELATIVE PERCENT (BEAKER) (test 5 % fner=999) EOSINOPHILS RELATIVE PERCENT (BEAKER) (test 1 % fnth=512) BASOPHILS RELATIVE PERCENT (BEAKER) (test 0 % qoce=446) NEUTROPHILS ABSOLUTE COUNT (BEAKER) (test 10.56 K/ L 1.56-6.13 zjeq=981) LYMPHOCYTES ABSOLUTE COUNT (BEAKER) (test 0.96 K/ L 1.18-3.74 fdfz=262) MONOCYTES ABSOLUTE COUNT (BEAKER) (test 0.60 K/ L 0.24-0.36 qekq=324) EOSINOPHILS ABSOLUTE COUNT (BEAKER) (test 0.18 K/ L 0.04-0.36 uyns=341) BASOPHILS ABSOLUTE COUNT (BEAKER) (test 0.05 K/ L 0.01-0.08 uaay=042) IMMATURE GRANULOCYTES-RELATIVE PERCENT (BEAKER) 1 % 0-1 (test ojqa=6439) POCT-GLUCOSE [id number] 21:48:00 Test Item Value Reference Range Comments POC-GLUCOSE METER (BEAKER) 130 mg/dL 70-110 TESTED AT [address] (test difn=1930) [facility] [address] POCT-GLUCOSE [id number] 17:38:00 Test Item Value Reference Range Comments POC-GLUCOSE METER (BEAKER) 240 mg/dL 70-110 TESTED AT [address] (test uwcr=2562) [facility] [address] MR, BRAIN, WITHOUT [id number] 13:28:00Reason for exam:->word finding difficultyFINAL REPORT MR, [...] in the left occipital lobe Signed: Julissa Dugganepbart Verified Date/Time: 07/10/2019 13:28:15 Reading Location: [address] Neuro Reading Room POCT-GLUCOSE [id number] 12:10:00 Test Item Value Reference Range Comments POC-GLUCOSE METER (BEAKER) 261 mg/dL 70-110 TESTED AT [address] (test bftz=6801) [facility] [address] POCT-GLUCOSE [id number] 08:01:00 Test Item Value Reference Range Comments POC-GLUCOSE METER (BEAKER) 119 mg/dL 70-110 TESTED AT [address] (test qkih=9687) [place] [id number] BASIC METABOLIC [id number] 06:22:00 Test Item Value Reference Range Comments SODIUM (BEAKER) (test 135 meq/L 136-145 elbv=454) POTASSIUM (BEAKER) (test 3.6 meq/L 3.5-5.1 gdbw=362) CHLORIDE (BEAKER) (test 103 meq/L 98-107 xtms=407) CO2 (BEAKER) (test 21 meq/L 22-29 itoj=198) BLOOD UREA NITROGEN 71 mg/dL 7-21 (BEAKER) (test eipv=590) CREATININE (BEAKER) (test 3.62 mg/dL 0.57-1.25 lbvt=507) GLUCOSE RANDOM (BEAKER) 102 mg/dL 70-105 (test fobg=284) CALCIUM (BEAKER) (test 8.2 mg/dL 8.4-10.2 mnvp=037) EGFR (BEAKER) (test 12 mL/min/1.73 sq m ESTIMATED GFR IS NOT ouvp=4467) ACCURATE CREATININE CLEARANCE IN PREDICTING GLOMERULAR FILTRATION RATE. ESTIMATED GFR IS NOT APPLICABLE FOR DIALYSIS PATIENTS. [id number] 06:21:00 Test Item Value Reference Range Comments MAGNESIUM (BEAKER) (test rymv=590) 2.0 mg/dL 1.6-2.6 CBC W/PLT COUNT & AUTO [id number] 06:10:00 Test Item Value Reference Range Comments WHITE BLOOD CELL COUNT (BEAKER) (test nnaa=374) 13.1 K/ L 3.5-10.5 RED BLOOD CELL COUNT (BEAKER) (test ovtk=196) 2.70 M/ L 3.93-5.22 HEMOGLOBIN (BEAKER) (test xhzr=918) 8.2 GM/DL 11.2-15.7 HEMATOCRIT (BEAKER) (test hkmc=521) 25.4 % 34.1-44.9 MEAN CORPUSCULAR VOLUME (BEAKER) (test aqys=109) 94.1 fL 79.4-94.8 MEAN CORPUSCULAR HEMOGLOBIN (BEAKER) (test 30.4 pg 25.6-32.2 nmzh=045) MEAN CORPUSCULAR HEMOGLOBIN CONC (BEAKER) (test 32.3 GM/DL 32.2-35.5 aics=418) RED CELL DISTRIBUTION WIDTH (BEAKER) (test 14.9 % 11.7-14.4 gwxu=615) PLATELET COUNT (BEAKER) (test mwip=845) 231 K/CU MM 150-450 MEAN PLATELET VOLUME (BEAKER) (test gxuk=982) 12.2 fL 9.4-12.3 NUCLEATED RED BLOOD CELLS (BEAKER) (test 0 /100 WBC 0-0 skys=519) NEUTROPHILS RELATIVE PERCENT (BEAKER) (test 80 % qkba=627) LYMPHOCYTES RELATIVE PERCENT (BEAKER) (test 10 % rzpi=002) MONOCYTES RELATIVE PERCENT (BEAKER) (test 6 % xmbo=149) EOSINOPHILS RELATIVE PERCENT (BEAKER) (test 2 % qvju=236) BASOPHILS RELATIVE PERCENT (BEAKER) (test 1 % oakx=074) NEUTROPHILS ABSOLUTE COUNT (BEAKER) (test 10.50 K/ L 1.56-6.13 siel=914) LYMPHOCYTES ABSOLUTE COUNT (BEAKER) (test 1.32 K/ L 1.18-3.74 uiqo=532) MONOCYTES ABSOLUTE COUNT (BEAKER) (test 0.72 K/ L 0.24-0.36 owox=620) EOSINOPHILS ABSOLUTE COUNT (BEAKER) (test 0.24 K/ L 0.04-0.36 nbfw=730) BASOPHILS ABSOLUTE COUNT (BEAKER) (test 0.06 K/ L 0.01-0.08 kipg=085) IMMATURE GRANULOCYTES-RELATIVE PERCENT (BEAKER) 2 % 0-1 (test nuhf=2996) RAD, CHEST, 1 VIEW, NON [id number] 23:46:00Reason for exam:->increased coughShould this be performed [...] Stable contours. Additional findings: None. Signed: Erica Hou Verified Date/ Time: 07/09/2019 23:46:51 POCT-GLUCOSE [id number] 21:27:00 Test Item Value Reference Range Comments POC-GLUCOSE METER (BEAKER) 168 mg/dL 70-110 TESTED AT [address] (test ywxu=1988) [facility] [address] POCT-GLUCOSE [id number] 17:26:00 Test Item Value Reference Range Comments POC-GLUCOSE METER (BEAKER) 263 mg/dL 70-110 TESTED AT [address] (test lysv=8109) [facility] [address] POCT-GLUCOSE [id number] 12:02:00 Test Item Value Reference Range Comments POC-GLUCOSE METER (BEAKER) 228 mg/dL 70-110 TESTED AT [address] (test wgza=6089) [facility] [address] POCT-GLUCOSE [id number] 08:08:00 Test Item Value Reference Range Comments POC-GLUCOSE METER (BEAKER) 134 mg/dL 70-110 TESTED AT [address] (test dexr=4329) [facility] [address] CALCIUM, [id number] 08:03:00 Test Item Value Reference Range Comments CALCIUM IONIZED (BEAKER) (test scms=905) 0.98 mmol/L 1.12-1.27 PH, BLOOD (BEAKER) (test phbt=8434) 7.50 COMPREHENSIVE METABOLIC [id number] 07:11:00 Test Item Value Reference Range Comments TOTAL PROTEIN (BEAKER) 5.6 gm/dL 6.0-8.3 (test ouuy=738) ALBUMIN (BEAKER) (test 2.7 g/dL 3.5-5.0 ouzu=3105) ALKALINE PHOSPHATASE 63 U/L 40-150 (BEAKER) (test rczg=807) BILIRUBIN TOTAL (BEAKER) 0.4 mg/dL 0.2-1.2 (test evco=161) SODIUM (BEAKER) (test 138 meq/L 136-145 wczj=344) POTASSIUM (BEAKER) (test 3.6 meq/L 3.5-5.1 jsvk=669) CHLORIDE (BEAKER) (test 103 meq/L 98-107 gffl=629) CO2 (BEAKER) (test 23 meq/L 22-29 umef=709) BLOOD UREA NITROGEN 73 mg/dL 7-21 (BEAKER) (test qrzw=074) CREATININE (BEAKER) (test 3.45 mg/dL 0.57-1.25 fhgs=431) GLUCOSE RANDOM (BEAKER) 126 mg/dL 70-105 (test yzrl=905) CALCIUM (BEAKER) (test 8.3 mg/dL 8.4-10.2 eqqs=273) AST (SGOT) (BEAKER) (test 26 U/L 5-34 vkwy=854) ALT (SGPT) (BEAKER) (test 15 U/L 6-55 chof=249) EGFR (BEAKER) (test 13 mL/min/1.73 sq m ESTIMATED GFR IS NOT zifw=2829) ACCURATE CREATININE CLEARANCE IN PREDICTING GLOMERULAR FILTRATION RATE. ESTIMATED GFR IS NOT APPLICABLE FOR DIALYSIS PATIENTS. [id number] 07:00:00 Test Item Value Reference Range Comments PHOSPHORUS (BEAKER) (test uufc=767) 3.8 mg/dL 2.3-4.7 [id number] 07:00:00 Test Item Value Reference Range Comments MAGNESIUM (BEAKER) (test ntwf=869) 2.1 mg/dL 1.6-2.6 CBC W/PLT COUNT & AUTO [id number] 06:33:00 Test Item Value Reference Range Comments WHITE BLOOD CELL COUNT (BEAKER) (test kxcp=951) 14.4 K/ L 3.5-10.5 RED BLOOD CELL COUNT (BEAKER) (test tboo=999) 2.84 M/ L 3.93-5.22 HEMOGLOBIN (BEAKER) (test khxx=084) 8.5 GM/DL 11.2-15.7 HEMATOCRIT (BEAKER) (test oxce=877) 26.2 % 34.1-44.9 MEAN CORPUSCULAR VOLUME (BEAKER) (test gske=032) 92.3 fL 79.4-94.8 MEAN CORPUSCULAR HEMOGLOBIN (BEAKER) (test 29.9 pg 25.6-32.2 ejdp=732) MEAN CORPUSCULAR HEMOGLOBIN CONC (BEAKER) (test 32.4 GM/DL 32.2-35.5 ugau=131) RED CELL DISTRIBUTION WIDTH (BEAKER) (test 14.7 % 11.7-14.4 mysv=127) PLATELET COUNT (BEAKER) (test cxgi=017) 243 K/CU MM 150-450 MEAN PLATELET VOLUME (BEAKER) (test nhsx=399) 12.6 fL 9.4-12.3 NUCLEATED RED BLOOD CELLS (BEAKER) (test 0 /100 WBC 0-0 tryn=927) NEUTROPHILS RELATIVE PERCENT (BEAKER) (test 82 % gnzy=653) LYMPHOCYTES RELATIVE PERCENT (BEAKER) (test 8 % jmkl=770) MONOCYTES RELATIVE PERCENT (BEAKER) (test 7 % istv=656) EOSINOPHILS RELATIVE PERCENT (BEAKER) (test 2 % wzpi=531) BASOPHILS RELATIVE PERCENT (BEAKER) (test 0 % bunx=337) NEUTROPHILS ABSOLUTE COUNT (BEAKER) (test 11.77 K/ L 1.56-6.13 irht=231) LYMPHOCYTES ABSOLUTE COUNT (BEAKER) (test 1.08 K/ L 1.18-3.74 dbns=272) MONOCYTES ABSOLUTE COUNT (BEAKER) (test 0.98 K/ L 0.24-0.36 zqok=520) EOSINOPHILS ABSOLUTE COUNT (BEAKER) (test 0.31 K/ L 0.04-0.36 xytl=442) BASOPHILS ABSOLUTE COUNT (BEAKER) (test 0.04 K/ L 0.01-0.08 yfbq=947) IMMATURE GRANULOCYTES-RELATIVE PERCENT (BEAKER) 2 % 0-1 (test ewye=1870) POCT-GLUCOSE [id number] 21:30:00 Test Item Value Reference Range Comments POC-GLUCOSE METER (BEAKER) 196 mg/dL 70-110 TESTED AT [address] (test hluq=6058) [place] [address] POCT-GLUCOSE [id number] 17:34:00 Test Item Value Reference Range Comments POC-GLUCOSE METER (BEAKER) 234 mg/dL 70-110 TESTED AT [address] (test splv=3810) [place] [address] DIGOXIN [id number] 12:51:00 Test Item Value Reference Range Comments DIGOXIN LEVEL (BEAKER) (test osrx=235) 0.9 ng/mL 0.8-2.0 POCT-GLUCOSE [id number] 11:52:00 Test Item Value Reference Range Comments POC-GLUCOSE METER (BEAKER) 222 mg/dL 70-110 TESTED AT [address] (test qdcl=6743) [place] [address] POCT-GLUCOSE [id number] 08:40:00 Test Item Value Reference Range Comments POC-GLUCOSE METER (BEAKER) 120 mg/dL 70-110 TESTED AT [facility] [address] (test ppld=8126) [place] [address] CALCIUM, [id number] 07:04:00 Test Item Value Reference Range Comments CALCIUM IONIZED (BEAKER) (test ffxi=126) 1.07 mmol/L 1.12-1.27 PH, BLOOD (BEAKER) (test phxc=3796) 7.42 CBC W/PLT COUNT & AUTO [id number] 06:48:00 Test Item Value Reference Range Comments WHITE BLOOD CELL COUNT (BEAKER) (test esqu=705) 14.3 K/ L 3.5-10.5 RED BLOOD CELL COUNT (BEAKER) (test yfsd=446) 3.03 M/ L 3.93-5.22 HEMOGLOBIN (BEAKER) (test abui=099) 9.0 GM/DL 11.2-15.7 HEMATOCRIT (BEAKER) (test afiv=847) 28.2 % 34.1-44.9 MEAN CORPUSCULAR VOLUME (BEAKER) (test zfyz=962) 93.1 fL 79.4-94.8 MEAN CORPUSCULAR HEMOGLOBIN (BEAKER) (test 29.7 pg 25.6-32.2 cyil=652) MEAN CORPUSCULAR HEMOGLOBIN CONC (BEAKER) (test 31.9 GM/DL 32.2-35.5 koua=267) RED CELL DISTRIBUTION WIDTH (BEAKER) (test 14.7 % 11.7-14.4 vtvx=188) PLATELET COUNT (BEAKER) (test ibrx=948) 257 K/CU MM 150-450 MEAN PLATELET VOLUME (BEAKER) (test grdp=418) 12.2 fL 9.4-12.3 NUCLEATED RED BLOOD CELLS (BEAKER) (test 0 /100 WBC 0-0 mpnu=363) NEUTROPHILS RELATIVE PERCENT (BEAKER) (test 83 % bhwm=028) LYMPHOCYTES RELATIVE PERCENT (BEAKER) (test 7 % ydpf=999) MONOCYTES RELATIVE PERCENT (BEAKER) (test 6 % papb=103) EOSINOPHILS RELATIVE PERCENT (BEAKER) (test 2 % rxmc=107) BASOPHILS RELATIVE PERCENT (BEAKER) (test 0 % xytz=817) NEUTROPHILS ABSOLUTE COUNT (BEAKER) (test 11.82 K/ L 1.56-6.13 gwms=724) LYMPHOCYTES ABSOLUTE COUNT (BEAKER) (test 1.01 K/ L 1.18-3.74 griu=603) MONOCYTES ABSOLUTE COUNT (BEAKER) (test 0.89 K/ L 0.24-0.36 lmod=950) EOSINOPHILS ABSOLUTE COUNT (BEAKER) (test 0.26 K/ L 0.04-0.36 dfka=598) BASOPHILS ABSOLUTE COUNT (BEAKER) (test 0.02 K/ L 0.01-0.08 tvpe=847) IMMATURE GRANULOCYTES-RELATIVE PERCENT (BEAKER) 2 % 0-1 (test muom=3911) CREATINE KINASE (CK)2019-07-08 06:22:00 Test Item Value Reference Range Comments CREATINE KINASE TOTAL (BEAKER) (test djdp=561) 18 U/L 29-200 COMPREHENSIVE METABOLIC [id number] 06:22:00 Test Item Value Reference Range Comments TOTAL PROTEIN (BEAKER) 5.6 gm/dL 6.0-8.3 (test qlrc=329) ALBUMIN (BEAKER) (test 2.7 g/dL 3.5-5.0 uewq=7603) ALKALINE PHOSPHATASE 58 U/L 40-150 (BEAKER) (test xhgg=939) BILIRUBIN TOTAL (BEAKER) 0.5 mg/dL 0.2-1.2 (test ewmc=074) SODIUM (BEAKER) (test 136 meq/L 136-145 vlew=915) POTASSIUM (BEAKER) (test 3.6 meq/L 3.5-5.1 idny=038) CHLORIDE (BEAKER) (test 103 meq/L 98-107 wlyv=261) CO2 (BEAKER) (test 23 meq/L 22-29 njvu=205) BLOOD UREA NITROGEN 80 mg/dL 7-21 (BEAKER) (test xnpq=737) CREATININE (BEAKER) (test 3.10 mg/dL 0.57-1.25 nsui=684) GLUCOSE RANDOM (BEAKER) 107 mg/dL 70-105 (test nnff=246) CALCIUM (BEAKER) (test 8.3 mg/dL 8.4-10.2 isny=494) AST (SGOT) (BEAKER) (test 16 U/L 5-34 hstf=095) ALT (SGPT) (BEAKER) (test 10 U/L 6-55 xomn=388) EGFR (BEAKER) (test 15 mL/min/1.73 sq m ESTIMATED GFR IS NOT yfkl=6984) ACCURATE CREATININE CLEARANCE IN PREDICTING GLOMERULAR FILTRATION RATE. ESTIMATED GFR IS NOT APPLICABLE FOR DIALYSIS PATIENTS. [id number] 06:20:00 Test Item Value Reference Range Comments PHOSPHORUS (BEAKER) (test aaau=720) 4.3 mg/dL 2.3-4.7 [id number] 06:20:00 Test Item Value Reference Range Comments MAGNESIUM (BEAKER) (test vhmo=737) 2.2 mg/dL 1.6-2.6 B-TYPE NATRIURETIC FACTOR (BNP)2019-07-08 06:16:00 Test Item Value Reference Range Comments B-TYPE NATRIURETIC PEPTIDE (BEAKER) (test 1115 pg/mL 0-100 egyp=595) POCT-GLUCOSE [id number] 22:01:00 Test Item Value Reference Range Comments POC-GLUCOSE METER (BEAKER) 144 mg/dL 70-110 TESTED AT [facility] [address] (test aegi=4121) [facility] [address] CREATININE, RANDOM [id number] 21:14:00 Test Item Value Reference Range Comments CREATININE URINE (BEAKER) (test cpkl=648) 63.2 mg/dL Reference Range: No NormalsPROTEIN, RANDOM [id number] 21:14:00 Test Item Value Reference Range Comments PROTEIN, URINE (BEAKER) (test jezq=3929) 23 mg/dL 0-14 SODIUM, RANDOM [id number] 21:14:00 Test Item Value Reference Range Comments SODIUM URINE (BEAKER) (test naqd=812) 29 meq/L Reference Range: No NormalsEOSINOPHIL SMEAR, [id number] 20:57:00 Test Item Value Reference Range Comments EOSINOPHIL SMEAR, URINE (BEAKER) (test No EOS seen No EOS seen wtat=0929) URINALYSIS W/ [id number] 20:21:00 Test Item Value Reference Range Comments COLOR (BEAKER) (test huqc=599) Yellow CLARITY (BEAKER) (test pylq=417) Hazy SPECIFIC GRAVITY UA (BEAKER) (test hyrq=871) 1.012 1.001-1.035 PH UA (BEAKER) (test vmnh=787) 5.5 5.0-8.0 PROTEIN UA (BEAKER) (test utjn=362) 20 mg/dL Negative GLUCOSE UA (BEAKER) (test wbyw=730) Negative Negative KETONES UA (BEAKER) (test iomf=333) Negative Negative BILIRUBIN UA (BEAKER) (test yfge=608) Negative Negative BLOOD UA (BEAKER) (test sszx=345) Trace Negative NITRITE UA (BEAKER) (test wqbd=657) Negative Negative LEUKOCYTE ESTERASE UA (BEAKER) (test hfay=101) Large Negative UROBILINOGEN UA (BEAKER) (test taph=628) 0.2 mg/dL 0.2-1.0 RBC UA (BEAKER) (test wpig=031) 1 /HPF WBC UA (BEAKER) (test njft=288) 31 /HPF MUCUS (BEAKER) (test kwbl=5850) Rare SQUAMOUS EPITHELIAL (BEAKER) (test xecm=528) 2 /HPF YEAST (BEAKER) (test jlqv=0909) Few SOURCE(BEAKER) (test mawr=2190) POCT-GLUCOSE [id number] 17:32:00 Test Item Value Reference Range Comments POC-GLUCOSE METER (BEAKER) 168 mg/dL 70-110 TESTED AT [facility] [address] (test qfna=2937) [facility] [address] B-TYPE NATRIURETIC FACTOR (BNP)2019-07-07 17:05:00 Test Item Value Reference Range Comments B-TYPE NATRIURETIC PEPTIDE (BEAKER) (test 957 pg/mL 0-100 liuy=038) BASIC METABOLIC [id number] 15:29:00 Test Item Value Reference Range Comments SODIUM (BEAKER) (test 134 meq/L 136-145 dpgh=000) POTASSIUM (BEAKER) (test 4.0 meq/L 3.5-5.1 Specimen slightly hpdn=550) hemolyzed CHLORIDE (BEAKER) (test 101 meq/L 98-107 shsi=126) CO2 (BEAKER) (test 24 meq/L 22-29 mnvx=152) BLOOD UREA NITROGEN 85 mg/dL 7-21 (BEAKER) (test epxa=771) CREATININE (BEAKER) (test 3.17 mg/dL 0.57-1.25 Specimen slightly uqek=727) hemolyzed GLUCOSE RANDOM (BEAKER) 196 mg/dL 70-105 (test pmku=825) CALCIUM (BEAKER) (test 8.2 mg/dL 8.4-10.2 enxq=951) EGFR (BEAKER) (test 14 mL/min/1.73 sq m ESTIMATED GFR IS NOT xlfj=3718) ACCURATE CREATININE CLEARANCE IN PREDICTING GLOMERULAR FILTRATION RATE. ESTIMATED GFR IS NOT APPLICABLE FOR DIALYSIS PATIENTS. [id number] 15:20:00 Test Item Value Reference Range Comments MAGNESIUM (BEAKER) (test 2.2 mg/dL 1.6-2.6 Specimen slightly hemolyzed hjcs=153) [id number] 15:20:00 Test Item Value Reference Range Comments PHOSPHORUS (BEAKER) (test 4.4 mg/dL 2.3-4.7 Specimen slightly hemolyzed gfka=930) CBC W/PLT COUNT & AUTO [id number] 15:13:00 Test Item Value Reference Range Comments WHITE BLOOD CELL COUNT (BEAKER) (test qjfg=342) 12.9 K/ L 3.5-10.5 RED BLOOD CELL COUNT (BEAKER) (test cdkk=706) 3.02 M/ L 3.93-5.22 HEMOGLOBIN (BEAKER) (test ryuw=802) 9.1 GM/DL 11.2-15.7 HEMATOCRIT (BEAKER) (test zjmw=932) 28.2 % 34.1-44.9 MEAN CORPUSCULAR VOLUME (BEAKER) (test hkwm=850) 93.4 fL 79.4-94.8 MEAN CORPUSCULAR HEMOGLOBIN (BEAKER) (test 30.1 pg 25.6-32.2 gtgy=525) MEAN CORPUSCULAR HEMOGLOBIN CONC (BEAKER) (test 32.3 GM/DL 32.2-35.5 qpfi=974) RED CELL DISTRIBUTION WIDTH (BEAKER) (test 14.7 % 11.7-14.4 apve=032) PLATELET COUNT (BEAKER) (test qvrh=283) 250 K/CU MM 150-450 MEAN PLATELET VOLUME (BEAKER) (test fpii=711) 12.2 fL 9.4-12.3 NUCLEATED RED BLOOD CELLS (BEAKER) (test 0 /100 WBC 0-0 qnla=239) NEUTROPHILS RELATIVE PERCENT (BEAKER) (test 91 % qevi=227) LYMPHOCYTES RELATIVE PERCENT (BEAKER) (test 4 % bbtc=755) MONOCYTES RELATIVE PERCENT (BEAKER) (test 3 % nwsz=380) EOSINOPHILS RELATIVE PERCENT (BEAKER) (test 1 % evsn=412) BASOPHILS RELATIVE PERCENT (BEAKER) (test 0 % nbsh=598) NEUTROPHILS ABSOLUTE COUNT (BEAKER) (test 11.70 K/ L 1.56-6.13 uzcg=394) LYMPHOCYTES ABSOLUTE COUNT (BEAKER) (test 0.51 K/ L 1.18-3.74 cyie=304) MONOCYTES ABSOLUTE COUNT (BEAKER) (test 0.41 K/ L 0.24-0.36 psxo=179) EOSINOPHILS ABSOLUTE COUNT (BEAKER) (test 0.10 K/ L 0.04-0.36 qinp=234) BASOPHILS ABSOLUTE COUNT (BEAKER) (test 0.02 K/ L 0.01-0.08 jkzs=918) IMMATURE GRANULOCYTES-RELATIVE PERCENT (BEAKER) 1 % 0-1 (test qkta=8955) CALCIUM, [id number] 15:11:00 Test Item Value Reference Range Comments CALCIUM IONIZED (BEAKER) (test vnbl=366) 1.08 mmol/L 1.12-1.27 PH, BLOOD (BEAKER) (test cqwz=0203) 7.47 POCT-GLUCOSE [id number] 12:18:00 Test Item Value Reference Range Comments POC-GLUCOSE METER (BEAKER) 213 mg/dL 70-110 TESTED AT [address] (test tsmt=0631) [place] [address] POCT-GLUCOSE [id number] 07:33:00 Test Item Value Reference Range Comments POC-GLUCOSE METER (BEAKER) 145 mg/dL 70-110 TESTED AT [address] (test ruoe=3900) [place] [address] POCT-GLUCOSE [id number] 23:40:00 Test Item Value Reference Range Comments POC-GLUCOSE METER (BEAKER) 139 mg/dL 70-110 TESTED AT [address] (test kjrb=0595) [place] [address] BASIC METABOLIC [id number] 18:04:00 Test Item Value Reference Range Comments SODIUM (BEAKER) (test 133 meq/L 136-145 loif=453) POTASSIUM (BEAKER) (test 4.2 meq/L 3.5-5.1 uhff=330) CHLORIDE (BEAKER) (test 98 meq/L 98-107 tiqs=707) CO2 (BEAKER) (test 23 meq/L 22-29 zezh=364) BLOOD UREA NITROGEN 93 mg/dL 7-21 (BEAKER) (test ftdr=948) CREATININE (BEAKER) (test 3.14 mg/dL 0.57-1.25 fqyf=692) GLUCOSE RANDOM (BEAKER) 247 mg/dL 70-105 (test vodf=635) CALCIUM (BEAKER) (test 8.8 mg/dL 8.4-10.2 vrbn=540) EGFR (BEAKER) (test 15 mL/min/1.73 sq m ESTIMATED GFR IS NOT cizv=7820) ACCURATE CREATININE CLEARANCE IN PREDICTING GLOMERULAR FILTRATION RATE. ESTIMATED GFR IS NOT APPLICABLE FOR DIALYSIS PATIENTS. [id number] 18:02:00 Test Item Value Reference Range Comments PHOSPHORUS (BEAKER) (test egck=035) 4.6 mg/dL 2.3-4.7 [id number] 18:02:00 Test Item Value Reference Range Comments MAGNESIUM (BEAKER) (test tyfl=340) 2.3 mg/dL 1.6-2.6 B-TYPE NATRIURETIC FACTOR (BNP)2019-07-06 18:02:00 Test Item Value Reference Range Comments B-TYPE NATRIURETIC PEPTIDE (BEAKER) (test 570 pg/mL 0-100 iegl=733) POCT-GLUCOSE [id number] 17:39:00 Test Item Value Reference Range Comments POC-GLUCOSE METER (BEAKER) 212 mg/dL 70-110 TESTED AT [facility] [address] (test jypt=1963) [facility] [address] CALCIUM, [id number] 17:04:00 Test Item Value Reference Range Comments CALCIUM IONIZED (BEAKER) (test trrh=653) 1.02 mmol/L 1.12-1.27 PH, BLOOD (BEAKER) (test lhhe=6715) 7.39 CBC W/PLT COUNT & AUTO [id number] 16:58:00 Test Item Value Reference Range Comments WHITE BLOOD CELL COUNT (BEAKER) (test oewg=788) 13.4 K/ L 3.5-10.5 RED BLOOD CELL COUNT (BEAKER) (test sktk=057) 3.48 M/ L 3.93-5.22 HEMOGLOBIN (BEAKER) (test ynsh=727) 10.4 GM/DL 11.2-15.7 HEMATOCRIT (BEAKER) (test xucy=405) 31.6 % 34.1-44.9 MEAN CORPUSCULAR VOLUME (BEAKER) (test fzlo=346) 90.8 fL 79.4-94.8 MEAN CORPUSCULAR HEMOGLOBIN (BEAKER) (test 29.9 pg 25.6-32.2 hwto=596) MEAN CORPUSCULAR HEMOGLOBIN CONC (BEAKER) (test 32.9 GM/DL 32.2-35.5 bppy=866) RED CELL DISTRIBUTION WIDTH (BEAKER) (test 14.6 % 11.7-14.4 xbdd=050) PLATELET COUNT (BEAKER) (test pbgr=810) 262 K/CU MM 150-450 MEAN PLATELET VOLUME (BEAKER) (test zrnj=877) 12.2 fL 9.4-12.3 NUCLEATED RED BLOOD CELLS (BEAKER) (test 0 /100 WBC 0-0 gglv=645) NEUTROPHILS RELATIVE PERCENT (BEAKER) (test 90 % zyms=879) LYMPHOCYTES RELATIVE PERCENT (BEAKER) (test 4 % wytj=220) MONOCYTES RELATIVE PERCENT (BEAKER) (test 4 % vtnw=444) EOSINOPHILS RELATIVE PERCENT (BEAKER) (test 1 % jfkl=758) BASOPHILS RELATIVE PERCENT (BEAKER) (test 0 % mpdp=954) NEUTROPHILS ABSOLUTE COUNT (BEAKER) (test 11.98 K/ L 1.56-6.13 frqh=492) LYMPHOCYTES ABSOLUTE COUNT (BEAKER) (test 0.50 K/ L 1.18-3.74 aqad=782) MONOCYTES ABSOLUTE COUNT (BEAKER) (test 0.49 K/ L 0.24-0.36 qmmy=270) EOSINOPHILS ABSOLUTE COUNT (BEAKER) (test 0.11 K/ L 0.04-0.36 pctp=098) BASOPHILS ABSOLUTE COUNT (BEAKER) (test 0.02 K/ L 0.01-0.08 luso=140) IMMATURE GRANULOCYTES-RELATIVE PERCENT (BEAKER) 2 % 0-1 (test uwul=7658) POCT-GLUCOSE [id number] 08:37:00 Test Item Value Reference Range Comments POC-GLUCOSE METER (BEAKER) 153 mg/dL 70-110 TESTED AT [address] (test yfey=4831) [facility] [address] POCT-GLUCOSE [id number] 21:38:00 Test Item Value Reference Range Comments POC-GLUCOSE METER (BEAKER) 156 mg/dL 70-110 TESTED AT [address] (test pqqk=6578) [facility] [address] POCT-GLUCOSE [id number] 17:54:00 Test Item Value Reference Range Comments POC-GLUCOSE METER (BEAKER) 233 mg/dL 70-110 TESTED AT [address] (test myuh=1672) [facility] [address] RAD, CHEST, 2 [id number] 17:50:00Reason for exam:->productive cough, new RLL infiltrate [...] definite pleural effusion.Osseous structures unremarkable. Signed: Daniel Mirandaeport Verified Date/Time: 07/05/2019 17:50:57 Reading Location: [facility] Reading Room POCT-GLUCOSE [id number] 12:27:00 Test Item Value Reference Range Comments POC-GLUCOSE METER (BEAKER) 299 mg/dL 70-110 TESTED AT [address] (test brtm=6826) [facility] [address] POCT-GLUCOSE [id number] 08:00:00 Test Item Value Reference Range Comments POC-GLUCOSE METER (BEAKER) 118 mg/dL 70-110 TESTED AT [address] (test jbwv=5524) [facility] [address] [id number] 07:40:00 Test Item Value Reference Range Comments MAGNESIUM (BEAKER) (test zmgs=435) 2.3 mg/dL 1.6-2.6 BASIC METABOLIC [id number] 06:40:00 Test Item Value Reference Range Comments SODIUM (BEAKER) (test 135 meq/L 136-145 baoq=042) POTASSIUM (BEAKER) (test 3.9 meq/L 3.5-5.1 xtkj=471) CHLORIDE (BEAKER) (test 99 meq/L 98-107 xqxo=782) CO2 (BEAKER) (test 25 meq/L 22-29 eayy=530) BLOOD UREA NITROGEN 101 mg/dL 7-21 (BEAKER) (test fnpt=585) CREATININE (BEAKER) (test 2.77 mg/dL 0.57-1.25 urnu=131) GLUCOSE RANDOM (BEAKER) 108 mg/dL 70-105 (test ncvg=409) CALCIUM (BEAKER) (test 8.9 mg/dL 8.4-10.2 ngcy=857) EGFR (BEAKER) (test 17 mL/min/1.73 sq m ESTIMATED GFR IS NOT nbcx=5993) ACCURATE CREATININE CLEARANCE IN PREDICTING GLOMERULAR FILTRATION RATE. ESTIMATED GFR IS NOT APPLICABLE FOR DIALYSIS PATIENTS. B-TYPE NATRIURETIC FACTOR (BNP)2019-07-05 05:47:00 Test Item Value Reference Range Comments B-TYPE NATRIURETIC PEPTIDE (BEAKER) (test 414 pg/mL 0-100 qign=395) CBC W/PLT COUNT & AUTO [id number] 05:09:00 Test Item Value Reference Range Comments WHITE BLOOD CELL COUNT (BEAKER) (test dzxv=431) 14.9 K/ L 3.5-10.5 RED BLOOD CELL COUNT (BEAKER) (test pxbe=596) 3.38 M/ L 3.93-5.22 HEMOGLOBIN (BEAKER) (test yqnr=593) 10.2 GM/DL 11.2-15.7 HEMATOCRIT (BEAKER) (test dcun=338) 30.7 % 34.1-44.9 MEAN CORPUSCULAR VOLUME (BEAKER) (test ezcj=936) 90.8 fL 79.4-94.8 MEAN CORPUSCULAR HEMOGLOBIN (BEAKER) (test 30.2 pg 25.6-32.2 recl=076) MEAN CORPUSCULAR HEMOGLOBIN CONC (BEAKER) (test 33.2 GM/DL 32.2-35.5 grum=059) RED CELL DISTRIBUTION WIDTH (BEAKER) (test 14.6 % 11.7-14.4 lgtl=434) PLATELET COUNT (BEAKER) (test irtl=747) 257 K/CU MM 150-450 MEAN PLATELET VOLUME (BEAKER) (test htrp=540) 12.2 fL 9.4-12.3 NUCLEATED RED BLOOD CELLS (BEAKER) (test 0 /100 WBC 0-0 mvqk=120) NEUTROPHILS RELATIVE PERCENT (BEAKER) (test 84 % uhzk=564) LYMPHOCYTES RELATIVE PERCENT (BEAKER) (test 7 % dloz=647) MONOCYTES RELATIVE PERCENT (BEAKER) (test 5 % dknd=326) EOSINOPHILS RELATIVE PERCENT (BEAKER) (test 1 % atls=598) BASOPHILS RELATIVE PERCENT (BEAKER) (test 0 % jhfn=738) NEUTROPHILS ABSOLUTE COUNT (BEAKER) (test 12.50 K/ L 1.56-6.13 epga=940) LYMPHOCYTES ABSOLUTE COUNT (BEAKER) (test 1.09 K/ L 1.18-3.74 orad=752) MONOCYTES ABSOLUTE COUNT (BEAKER) (test 0.78 K/ L 0.24-0.36 jubt=137) EOSINOPHILS ABSOLUTE COUNT (BEAKER) (test 0.14 K/ L 0.04-0.36 mehz=227) BASOPHILS ABSOLUTE COUNT (BEAKER) (test 0.03 K/ L 0.01-0.08 pvfp=065) IMMATURE GRANULOCYTES-RELATIVE PERCENT (BEAKER) 3 % 0-1 (test bzfg=5039) POCT-GLUCOSE [id number] 21:35:00 Test Item Value Reference Range Comments POC-GLUCOSE METER (BEAKER) 79 mg/dL 70-110 TESTED AT [address] (test aldg=3753) [place] [address] POCT-GLUCOSE [id number] 17:30:00 Test Item Value Reference Range Comments POC-GLUCOSE METER (BEAKER) 156 mg/dL 70-110 TESTED AT [address] (test dgsh=2364) [place] [id number] POCT-GLUCOSE [id number] 15:05:00 Test Item Value Reference Range Comments POC-GLUCOSE METER (BEAKER) 211 mg/dL 70-110 TESTED AT [address] (test rvkk=8639) [place] [address] RAD, CHEST, 1 VIEW, NON [id number] 08:07:00Reason for exam:->sobShould this be performed at [...] Verified Date/ Time: 07/04/2019 08:07:46 Reading Location: [address] Ortho Consult Reading Room 08: 07 AMPOCT-GLUCOSE [id number] 08:05:00 Test Item Value Reference Range Comments POC-GLUCOSE METER (BEAKER) 148 mg/dL 70-110 TESTED AT [facility] [address] (test mqvu=2221) [facility] [address] CBC W/PLT COUNT & AUTO [id number] 07:59:00 Test Item Value Reference Range Comments WHITE BLOOD CELL COUNT (BEAKER) (test avco=126) 14.3 K/ L 3.5-10.5 RED BLOOD CELL COUNT (BEAKER) (test pwxp=638) 3.65 M/ L 3.93-5.22 HEMOGLOBIN (BEAKER) (test fhjm=051) 10.7 GM/DL 11.2-15.7 HEMATOCRIT (BEAKER) (test xfmx=753) 32.7 % 34.1-44.9 MEAN CORPUSCULAR VOLUME (BEAKER) (test mixr=813) 89.6 fL 79.4-94.8 MEAN CORPUSCULAR HEMOGLOBIN (BEAKER) (test 29.3 pg 25.6-32.2 tyjd=623) MEAN CORPUSCULAR HEMOGLOBIN CONC (BEAKER) (test 32.7 GM/DL 32.2-35.5 cccr=014) RED CELL DISTRIBUTION WIDTH (BEAKER) (test 14.6 % 11.7-14.4 vmdw=738) PLATELET COUNT (BEAKER) (test dkpe=010) 217 K/CU MM 150-450 MEAN PLATELET VOLUME (BEAKER) (test znpc=112) 12.2 fL 9.4-12.3 NUCLEATED RED BLOOD CELLS (BEAKER) (test 0 /100 WBC 0-0 jeaa=472) (CELLAVISION MANUAL DIFF)2019-07-04 07:59:00 Test Item Value Reference Range Comments NEUTROPHILS - REL (CELLAVISION)(BEAKER) (test 88 % btpq=8632) LYMPHOCYTES - REL (CELLAVISION)(BEAKER) (test 6 % eogq=4622) MONOCYTES - REL (CELLAVISION)(BEAKER) (test 5 % smtp=5763) EOSINOPHILS - REL (CELLAVISION)(BEAKER) (test 1 % wfjg=8402) NEUTROPHILS - ABS (CELLAVISION)(BEAKER) (test 12.58 K/ul 1.56-6.13 vmoq=0406) LYMPHOCYTES - ABS (CELLAVISION)(BEAKER) (test 0.86 K/ul 1.18-3.74 hwrs=6513) MONOCYTES - ABS (CELLAVISION)(BEAKER) (test 0.72 K/uL 0.24-0.36 gxpk=1355) EOSINOPHILS - ABS (CELLAVISION)(BEAKER) (test 0.14 K/uL 0.04-0.36 xnww=9327) TOTAL COUNTED (BEAKER) (test zsbx=4831) 100 RBC MORPHOLOGY (BEAKER) (test chuf=177) Normal WBC MORPHOLOGY (BEAKER) (test fkmj=544) Normal PLT MORPHOLOGY (BEAKER) (test ezfc=874) Normal ARTIFACT (CELLAVISION)(BEAKER) (test lkpi=2122) Present PLATELET CONCENTRATION (CELLAVISION)(BEAKER) Adequate (test cxdd=6923) Received comment: User comments: Slide comments:BASIC METABOLIC [id number] 07:39:00 Test Item Value Reference Range Comments SODIUM (BEAKER) (test 133 meq/L 136-145 pwea=538) POTASSIUM (BEAKER) (test 3.8 meq/L 3.5-5.1 mvoj=031) CHLORIDE (BEAKER) (test 95 meq/L 98-107 iwmc=867) CO2 (BEAKER) (test 25 meq/L 22-29 zorq=141) BLOOD UREA NITROGEN 93 mg/dL 7-21 (BEAKER) (test glip=573) CREATININE (BEAKER) (test 2.54 mg/dL 0.57-1.25 jhfn=222) GLUCOSE RANDOM (BEAKER) 150 mg/dL 70-105 (test cujf=603) CALCIUM (BEAKER) (test 9.0 mg/dL 8.4-10.2 poxr=880) EGFR (BEAKER) (test 19 mL/min/1.73 sq m ESTIMATED GFR IS NOT fhsp=1560) ACCURATE CREATININE CLEARANCE IN PREDICTING GLOMERULAR FILTRATION RATE. ESTIMATED GFR IS NOT APPLICABLE FOR DIALYSIS PATIENTS. [id number] 07:33:00 Test Item Value Reference Range Comments MAGNESIUM (BEAKER) (test btzs=820) 2.2 mg/dL 1.6-2.6 POCT-GLUCOSE [id number] 21:21:00 Test Item Value Reference Range Comments POC-GLUCOSE METER (BEAKER) 161 mg/dL 70-110 TESTED AT [address] (test amur=7898) [place] [id number] POCT-GLUCOSE [id number] 12:55:00 Test Item Value Reference Range Comments POC-GLUCOSE METER (BEAKER) 211 mg/dL 70-110 TESTED AT [address] (test kjah=5138) [facility] [address] CBC W/PLT COUNT & AUTO [id number] 09:36:00 Test Item Value Reference Range Comments WHITE BLOOD CELL COUNT (BEAKER) (test nsla=392) 12.7 K/ L 3.5-10.5 RED BLOOD CELL COUNT (BEAKER) (test jjal=502) 3.81 M/ L 3.93-5.22 HEMOGLOBIN (BEAKER) (test mjpn=681) 11.3 GM/DL 11.2-15.7 HEMATOCRIT (BEAKER) (test vgsf=554) 33.9 % 34.1-44.9 MEAN CORPUSCULAR VOLUME (BEAKER) (test fotz=077) 89.0 fL 79.4-94.8 MEAN CORPUSCULAR HEMOGLOBIN (BEAKER) (test 29.7 pg 25.6-32.2 oxyk=539) MEAN CORPUSCULAR HEMOGLOBIN CONC (BEAKER) (test 33.3 GM/DL 32.2-35.5 zyss=243) RED CELL DISTRIBUTION WIDTH (BEAKER) (test 14.2 % 11.7-14.4 ntcd=692) PLATELET COUNT (BEAKER) (test sejn=785) 213 K/CU MM 150-450 MEAN PLATELET VOLUME (BEAKER) (test yymd=167) 11.9 fL 9.4-12.3 NUCLEATED RED BLOOD CELLS (BEAKER) (test 0 /100 WBC 0-0 acjg=027) (CELLAVISION MANUAL DIFF)2019-07-03 09:36:00 Test Item Value Reference Range Comments NEUTROPHILS - REL (CELLAVISION)(BEAKER) (test 80 % anuj=8444) LYMPHOCYTES - REL (CELLAVISION)(BEAKER) (test 10 % ympi=1757) MONOCYTES - REL (CELLAVISION)(BEAKER) (test 7 % ywbz=2749) EOSINOPHILS - REL (CELLAVISION)(BEAKER) (test 1 % wgyg=4232) BANDS - REL (CELLAVISION)(BEAKER) (test 2 % 0-10 ikfj=5618) NEUTROPHILS - ABS (CELLAVISION)(BEAKER) (test 10.16 K/ul 1.56-6.13 rjzo=8034) LYMPHOCYTES - ABS (CELLAVISION)(BEAKER) (test 1.27 K/ul 1.18-3.74 bbam=5714) MONOCYTES - ABS (CELLAVISION)(BEAKER) (test 0.89 K/uL 0.24-0.36 ydih=5877) EOSINOPHILS - ABS (CELLAVISION)(BEAKER) (test 0.13 K/uL 0.04-0.36 rcma=1341) BANDS - ABS (CELLAVISION)(BEAKER) (test 0.25 K/uL 0.00-0.80 pybe=5261) TOTAL COUNTED (BEAKER) (test vufa=9985) 100 WBC MORPHOLOGY (BEAKER) (test qzhb=804) Normal GIANT PLATELETS (BEAKER) (test nhbq=101) Present LARGE PLT(BEAKER) (test cufw=5266) Present POLYCHROMATOPHILLIC RBCS(BEAKER) (test rqoa=328) 1+ few HYPOCHROMIA (BEAKER) (test ozhb=092) 1+ few ANISOCYTOSIS (BEAKER) (test tfwe=091) 1+ few MACROCYTES (BEAKER) (test zubm=291) 1+ few POIKILOCYTES (BEAKER) (test czxy=718) 1+ few OVALOCYTES (BEAKER) (test nnoi=529) 1+ few ARTIFACT (CELLAVISION)(BEAKER) (test kkcs=4807) Present PLATELET CONCENTRATION (CELLAVISION)(BEAKER) Adequate (test jbur=9054) Received comment: User comments: Slide comments:POCT-GLUCOSE [id number] 08: 50:00 Test Item Value Reference Range Comments POC-GLUCOSE METER (BEAKER) 150 mg/dL 70-110 TESTED AT [facility] [address] (test nhpr=4993) [facility] [address] POCT-GLUCOSE [id number] 08:49:00 Test Item Value Reference Range Comments POC-GLUCOSE METER (BEAKER) 180 mg/dL 70-110 TESTED AT [place] [id number] (test mate=7452) [facility] [address] RAD, CHEST, 1 VIEW, NON [id number] 07:08:00Reason for exam:->sobShould this be performed at [...] MDReport Verified Date/Time: 07/03/2019 07:08:54 Reading Location: [address] Reading Room BASIC METABOLIC [id number] 05:46:00 Test Item Value Reference Range Comments SODIUM (BEAKER) (test 133 meq/L 136-145 hqdw=657) POTASSIUM (BEAKER) (test 3.4 meq/L 3.5-5.1 zhcz=019) CHLORIDE (BEAKER) (test 93 meq/L 98-107 eyfq=283) CO2 (BEAKER) (test 29 meq/L 22-29 zcjg=179) BLOOD UREA NITROGEN 87 mg/dL 7-21 (BEAKER) (test uvna=152) CREATININE (BEAKER) (test 2.37 mg/dL 0.57-1.25 pxym=461) GLUCOSE RANDOM (BEAKER) 146 mg/dL 70-105 (test bmda=686) CALCIUM (BEAKER) (test 9.1 mg/dL 8.4-10.2 uhyo=947) EGFR (BEAKER) (test 20 mL/min/1.73 sq m ESTIMATED GFR IS NOT uhnn=9106) ACCURATE CREATININE CLEARANCE IN PREDICTING GLOMERULAR FILTRATION RATE. ESTIMATED GFR IS NOT APPLICABLE FOR DIALYSIS PATIENTS. [id number] 05:37:00 Test Item Value Reference Range Comments MAGNESIUM (BEAKER) (test tfjc=897) 2.2 mg/dL 1.6-2.6 BLOOD GAS, [id number] 05:26:00 Test Item Value Reference Range Comments PH VENOUS (BEAKER) (test slzh=468) 7.46 7.32-7.42 PCO2 VENOUS (BEAKER) (test fyjc=791) 43 mmHg 41-51 PO2 VENOUS (BEAKER) (test uaol=667) 48 mmHg 25-40 O2 SATURATION VENOUS (BEAKER) (test aujf=107) 86.0 % 40.0-70.0 HCO3 VENOUS (BEAKER) (test izpk=150) 30 mmol/L 21-29 BASE EXCESS VENOUS (BEAKER) (test tsjx=216) 5.2 mmol/L -2.0-3.0 PATIENT TEMPERATURE (BEAKER) (test fjcw=0845) 37.0 C FIO2 (BEAKER) (test njud=4686) 100.0 % [id number] 18:08:00 Test Item Value Reference Range Comments MAGNESIUM (BEAKER) (test fplr=615) 2.5 mg/dL 1.6-2.6 [id number] 18:08:00 Test Item Value Reference Range Comments SODIUM (BEAKER) (test aajo=318) 133 meq/L 136-145 POTASSIUM (BEAKER) (test gchy=297) 3.6 meq/L 3.5-5.1 CHLORIDE (BEAKER) (test bkdm=128) 95 meq/L 98-107 CO2 (BEAKER) (test qauw=913) 27 meq/L 22-29 POCT-GLUCOSE [id number] 17:57:00 Test Item Value Reference Range Comments POC-GLUCOSE METER (BEAKER) 211 mg/dL 70-110 TESTED AT [address] (test lvqv=3794) [facility] [address] POCT-GLUCOSE [id number] 14:09:00 Test Item Value Reference Range Comments POC-GLUCOSE METER (BEAKER) 220 mg/dL 70-110 TESTED AT [facility] [address] (test bihx=4972) [facility] [address] POCT-GLUCOSE [id number] 10:10:00 Test Item Value Reference Range Comments POC-GLUCOSE METER (BEAKER) 184 mg/dL 70-110 TESTED AT [address] (test xnzs=5319) [facility] [address] RAD, CHEST, 1 VIEW, NON [id number] 07:25:00Reason for exam:->sobShould this be performed at [...] MDReport Verified Date/Time: 07/02/2019 07:25:25 Reading Location: [address] Neuro Reading Room CBC W/PLT COUNT & AUTO [id number] 06:58:00 Test Item Value Reference Range Comments WHITE BLOOD CELL COUNT (BEAKER) (test xogq=208) 8.9 K/ L 3.5-10.5 RED BLOOD CELL COUNT (BEAKER) (test ojjn=671) 3.69 M/ L 3.93-5.22 HEMOGLOBIN (BEAKER) (test vupp=893) 10.9 GM/DL 11.2-15.7 HEMATOCRIT (BEAKER) (test adol=793) 32.8 % 34.1-44.9 MEAN CORPUSCULAR VOLUME (BEAKER) (test ennp=917) 88.9 fL 79.4-94.8 MEAN CORPUSCULAR HEMOGLOBIN (BEAKER) (test 29.5 pg 25.6-32.2 pyzj=303) MEAN CORPUSCULAR HEMOGLOBIN CONC (BEAKER) (test 33.2 GM/DL 32.2-35.5 hsxw=615) RED CELL DISTRIBUTION WIDTH (BEAKER) (test 14.4 % 11.7-14.4 txtg=390) PLATELET COUNT (BEAKER) (test bvei=820) 165 K/CU MM 150-450 MEAN PLATELET VOLUME (BEAKER) (test lfqh=117) 12.3 fL 9.4-12.3 NUCLEATED RED BLOOD CELLS (BEAKER) (test 0 /100 WBC 0-0 zqac=463) (CELLAVISION MANUAL DIFF)2019-07-02 06:58:00 Test Item Value Reference Range Comments NEUTROPHILS - REL (CELLAVISION)(BEAKER) (test 74 % nvnh=3689) LYMPHOCYTES - REL (CELLAVISION)(BEAKER) (test 6 % jokg=9056) MONOCYTES - REL (CELLAVISION)(BEAKER) (test 11 % dfyn=6286) BANDS - REL (CELLAVISION)(BEAKER) (test izus=3076) 8 % 0-10 ATYPICAL LYMPHOCYTES - REL (CELLAVISION)(BEAKER) 1 % 0-0 (test exrs=3099) NEUTROPHILS - ABS (CELLAVISION)(BEAKER) (test 6.59 K/ul 1.56-6.13 imhx=2972) LYMPHOCYTES - ABS (CELLAVISION)(BEAKER) (test 0.53 K/ul 1.18-3.74 ybqi=0811) MONOCYTES - ABS (CELLAVISION)(BEAKER) (test 0.98 K/uL 0.24-0.36 fnxn=5388) BANDS - ABS (CELLAVISION)(BEAKER) (test dywv=1568) 0.71 K/uL 0.00-0.80 ATYPICAL LYMPHOCYTES - ABS (CELLAVISION)(BEAKER) 0.09 K/uL 0.00-0.00 (test wqbi=4398) TOTAL COUNTED (BEAKER) (test rjqs=0492) 100 RBC MORPHOLOGY (BEAKER) (test qimq=328) Normal WBC MORPHOLOGY (BEAKER) (test agqp=384) Normal PLT MORPHOLOGY (BEAKER) (test qjgr=824) Normal ARTIFACT (CELLAVISION)(BEAKER) (test hlal=4565) Present PLATELET CONCENTRATION (CELLAVISION)(BEAKER) (test Adequate rerv=9235) Received comment: User comments: Slide comments:POCT-GLUCOSE [id number] 05: 51:00 Test Item Value Reference Range Comments POC-GLUCOSE METER (BEAKER) 219 mg/dL 70-110 TESTED AT [facility] [address] (test igzj=5808) [facility] [address] BLOOD GAS, [id number] 04:53:00 Test Item Value Reference Range Comments PH VENOUS (BEAKER) (test wqun=184) 7.42 7.32-7.42 PCO2 VENOUS (BEAKER) (test zfca=101) 52 mmHg 41-51 PO2 VENOUS (BEAKER) (test tzqr=818) 48 mmHg 25-40 O2 SATURATION VENOUS (BEAKER) (test tdav=458) 84.4 % 40.0-70.0 HCO3 VENOUS (BEAKER) (test eycf=517) 33 mmol/L 21-29 BASE EXCESS VENOUS (BEAKER) (test jszt=978) 6.8 mmol/L -2.0-3.0 PATIENT TEMPERATURE (BEAKER) (test gfqz=8237) 36.5 C FIO2 (BEAKER) (test udmf=1844) 50.0 % [id number] 04:41:00 Test Item Value Reference Range Comments PHOSPHORUS (BEAKER) (test zrbw=390) 3.2 mg/dL 2.3-4.7 [id number] 04:41:00 Test Item Value Reference Range Comments MAGNESIUM (BEAKER) (test pdql=313) 2.0 mg/dL 1.6-2.6 COMPREHENSIVE METABOLIC [id number] 04:41:00 Test Item Value Reference Range Comments TOTAL PROTEIN (BEAKER) (test 6.2 gm/dL 6.0-8.3 vsqx=572) ALBUMIN (BEAKER) (test 3.0 g/dL 3.5-5.0 fjpx=9417) ALKALINE PHOSPHATASE (BEAKER) 55 U/L 40-150 (test zpie=050) BILIRUBIN TOTAL (BEAKER) 0.5 mg/dL 0.2-1.2 (test mucj=189) SODIUM (BEAKER) (test 134 meq/L 136-145 jcej=829) POTASSIUM (BEAKER) (test 3.3 meq/L 3.5-5.1 coiu=999) CHLORIDE (BEAKER) (test 93 meq/L 98-107 vidb=706) CO2 (BEAKER) (test xikb=337) 29 meq/L 22-29 BLOOD UREA NITROGEN (BEAKER) 85 mg/dL 7-21 (test biyw=381) CREATININE (BEAKER) (test 2.57 mg/dL 0.57-1.25 esct=446) GLUCOSE RANDOM (BEAKER) (test 214 mg/dL 70-105 uhfs=054) CALCIUM (BEAKER) (test 9.0 mg/dL 8.4-10.2 wfyi=464) AST (SGOT) (BEAKER) (test 12 U/L 5-34 eoqx=454) ALT (SGPT) (BEAKER) (test 9 U/L 6-55 zepo=289) EGFR (BEAKER) (test INSUFFICIENT CLINICAL DATA TO xpgz=5498) CALCULATE ESTIMATED GFR. [id number] 17:18:00 Test Item Value Reference Range Comments POTASSIUM (BEAKER) (test ymqc=407) 3.7 meq/L 3.5-5.1 [id number] 17:18:00 Test Item Value Reference Range Comments MAGNESIUM (BEAKER) (test uycm=393) 2.1 mg/dL 1.6-2.6 POCT-GLUCOSE [id number] 16:43:00 Test Item Value Reference Range Comments POC-GLUCOSE METER (BEAKER) 236 mg/dL 70-110 TESTED AT [facility] [address] (test fsrj=9576) [place] [id number] POCT-GLUCOSE [id number] 12:53:00 Test Item Value Reference Range Comments POC-GLUCOSE METER (BEAKER) 210 mg/dL 70-110 TESTED AT [address] (test vklq=3039) [facility] [address] RAD, CHEST, 1 VIEW, NON [id number] 11:06:00Reason for exam:->sobShould this be performed at the bedside?->YesFINAL REPORT Comparison: 06/30/2019 TECHNIQUE: Single view of the chest FINDINGS: Bibasilar densities are stable. Lungs otherwise grossly clear. Cardiac silhouette is enlarged. Left-sided central line is stable. Signed: Wali Velazco MDReport Verified Date/Time: 07/01/2019 11:06:56 Reading Location: [facility] Radiology Reading Room Electronically signed by: WALI VELAZCO M.D. on07/01/2019 11: 06 AMCBC W/PLT COUNT & AUTO [id number] 09:49:00 Test Item Value Reference Range Comments WHITE BLOOD CELL COUNT (BEAKER) (test rkek=537) 8.1 K/ L 3.5-10.5 RED BLOOD CELL COUNT (BEAKER) (test ybmp=600) 3.85 M/ L 3.93-5.22 HEMOGLOBIN (BEAKER) (test pwgd=907) 11.6 GM/DL 11.2-15.7 HEMATOCRIT (BEAKER) (test irjy=610) 35.0 % 34.1-44.9 MEAN CORPUSCULAR VOLUME (BEAKER) (test jjno=324) 90.9 fL 79.4-94.8 MEAN CORPUSCULAR HEMOGLOBIN (BEAKER) (test 30.1 pg 25.6-32.2 tjdf=966) MEAN CORPUSCULAR HEMOGLOBIN CONC (BEAKER) (test 33.1 GM/DL 32.2-35.5 yfkv=317) RED CELL DISTRIBUTION WIDTH (BEAKER) (test 14.6 % 11.7-14.4 vcey=206) PLATELET COUNT (BEAKER) (test zooy=392) 143 K/CU MM 150-450 MEAN PLATELET VOLUME (BEAKER) (test oqia=591) 12.2 fL 9.4-12.3 NUCLEATED RED BLOOD CELLS (BEAKER) (test 0 /100 WBC 0-0 qtdz=201) (CELLAVISION MANUAL DIFF)2019-07-01 09:49:00 Test Item Value Reference Range Comments NEUTROPHILS - REL (CELLAVISION)(BEAKER) (test 82 % lrqc=5699) LYMPHOCYTES - REL (CELLAVISION)(BEAKER) (test 5 % kxfc=4774) MONOCYTES - REL (CELLAVISION)(BEAKER) (test 10 % jlit=7558) BANDS - REL (CELLAVISION)(BEAKER) (test iydv=0732) 1 % 0-10 ATYPICAL LYMPHOCYTES - REL (CELLAVISION)(BEAKER) 2 % 0-0 (test izqz=7221) NEUTROPHILS - ABS (CELLAVISION)(BEAKER) (test 6.64 K/ul 1.56-6.13 zgtv=0927) LYMPHOCYTES - ABS (CELLAVISION)(BEAKER) (test 0.41 K/ul 1.18-3.74 tiwd=3320) MONOCYTES - ABS (CELLAVISION)(BEAKER) (test 0.81 K/uL 0.24-0.36 siqf=3995) BANDS - ABS (CELLAVISION)(BEAKER) (test mqje=6466) 0.08 K/uL 0.00-0.80 ATYPICAL LYMPHOCYTES - ABS (CELLAVISION)(BEAKER) 0.16 K/uL 0.00-0.00 (test zmcl=0668) TOTAL COUNTED (BEAKER) (test llya=0687) 100 RBC MORPHOLOGY (BEAKER) (test wvae=017) Normal SMUDGE CELLS (BEAKER) (test vybh=4885) Present GIANT PLATELETS (BEAKER) (test xodd=826) Present TOXIC GRANULATION (BEAKER) (test whzb=895) Present PLATELET CONCENTRATION (CELLAVISION)(BEAKER) (test Decreased bfxs=1264) Received comment: User comments: Slide comments:COMPREHENSIVE METABOLIC [id number] 08:39:00 Test Item Value Reference Range Comments TOTAL PROTEIN (BEAKER) (test 6.3 gm/dL 6.0-8.3 tyim=520) ALBUMIN (BEAKER) (test 3.0 g/dL 3.5-5.0 urpe=7600) ALKALINE PHOSPHATASE (BEAKER) 58 U/L 40-150 (test uiai=223) BILIRUBIN TOTAL (BEAKER) 0.5 mg/dL 0.2-1.2 (test nqys=649) SODIUM (BEAKER) (test 134 meq/L 136-145 qsvp=253) POTASSIUM (BEAKER) (test 3.9 meq/L 3.5-5.1 evdr=515) CHLORIDE (BEAKER) (test 95 meq/L 98-107 usnd=788) CO2 (BEAKER) (test cdaq=223) 26 meq/L 22-29 BLOOD UREA NITROGEN (BEAKER) 83 mg/dL 7-21 (test gknn=420) CREATININE (BEAKER) (test 2.75 mg/dL 0.57-1.25 ihkx=039) GLUCOSE RANDOM (BEAKER) (test 161 mg/dL 70-105 jbfx=408) CALCIUM (BEAKER) (test 8.9 mg/dL 8.4-10.2 bexj=630) AST (SGOT) (BEAKER) (test 18 U/L 5-34 tjyn=539) ALT (SGPT) (BEAKER) (test 10 U/L 6-55 dcre=782) EGFR (BEAKER) (test INSUFFICIENT CLINICAL DATA TO iosy=1896) CALCULATE ESTIMATED GFR. [id number] 08:30:00 Test Item Value Reference Range Comments PHOSPHORUS (BEAKER) (test edha=829) 5.3 mg/dL 2.3-4.7 [id number] 08:30:00 Test Item Value Reference Range Comments MAGNESIUM (BEAKER) (test mcwf=827) 2.1 mg/dL 1.6-2.6 POCT-GLUCOSE [id number] 08:15:00 Test Item Value Reference Range Comments POC-GLUCOSE METER (BEAKER) 167 mg/dL 70-110 TESTED AT [address] (test zgph=0043) [facility] [address] BLOOD GAS, [id number] 05:55:00 Test Item Value Reference Range Comments PH VENOUS (BEAKER) (test gzwq=295) 7.35 7.32-7.42 PCO2 VENOUS (BEAKER) (test ruoa=124) 54 mmHg 41-51 PO2 VENOUS (BEAKER) (test yrxz=324) 47 mmHg 25-40 O2 SATURATION VENOUS (BEAKER) (test tbac=097) 80.3 % 40.0-70.0 HCO3 VENOUS (BEAKER) (test iijb=075) 29 mmol/L 21-29 BASE EXCESS VENOUS (BEAKER) (test ouls=164) 2.5 mmol/L -2.0-3.0 PATIENT TEMPERATURE (BEAKER) (test vekn=6953) 37.0 C FIO2 (BEAKER) (test zwha=1806) 100.0 % CALCIUM, [id number] 05:50:00 Test Item Value Reference Range Comments CALCIUM IONIZED (BEAKER) (test lzxl=140) 1.12 mmol/L 1.12-1.27 PH, BLOOD (BEAKER) (test fyvf=9315) 7.35 BASIC METABOLIC [id number] 01:53:00 Test Item Value Reference Range Comments SODIUM (BEAKER) (test 133 meq/L 136-145 lkca=691) POTASSIUM (BEAKER) (test 3.6 meq/L 3.5-5.1 ubyi=437) CHLORIDE (BEAKER) (test 95 meq/L 98-107 isfb=083) CO2 (BEAKER) (test srlc=971) 24 meq/L 22-29 BLOOD UREA NITROGEN (BEAKER) 77 mg/dL 7-21 (test mmzp=724) CREATININE (BEAKER) (test 2.79 mg/dL 0.57-1.25 tjmp=615) GLUCOSE RANDOM (BEAKER) 211 mg/dL 70-105 (test btxg=283) CALCIUM (BEAKER) (test 8.8 mg/dL 8.4-10.2 sbrv=094) EGFR (BEAKER) (test INSUFFICIENT CLINICAL DATA TO hvcy=7069) CALCULATE ESTIMATED GFR. PUL PERF [facility], [facility], [id number] 23:32:00Reason for exam:-> dyspneaFINAL REPORT PROCEDURE: V/Q LUNG SCAN CPT CODE: 31379 INDICATION: exertional dyspnea PROTOCOL: 9.3 mCi of [...] MANDO HERNÁNDEZ MD on 2018 11:32 PMPOCT-GLUCOSE [id number] 22:19:00 Test Item Value Reference Range Comments POC-GLUCOSE METER (BEAKER) 218 mg/dL 70-110 TESTED AT [address] (test zeff=8429) [facility] [address] CT, CHEST, WITHOUT [id number] 21:46:00Reason for exam:->sobAnesthesia :->NoneFINAL REPORT EXAM: CT [...] pneumonia and/or subsegmental atelectasis. Signed: Gil Hooper [facility] Verified Date/Time: 21:46:13 Electronically signed by: GIL HOOPER MD on 10/2018 09:[facility] [id number] 13:40:00 Test Item Value Reference Range Comments SODIUM (BEAKER) (test 132 meq/L 136-145 jezs=595) POTASSIUM (BEAKER) (test 3.6 meq/L 3.5-5.1 qlbx=430) CHLORIDE (BEAKER) (test 97 meq/L 98-107 sdet=653) CO2 (BEAKER) (test nyxb=674) 26 meq/L 22-29 BLOOD UREA NITROGEN (BEAKER) 75 mg/dL 7-21 (test unvp=209) CREATININE (BEAKER) (test 2.76 mg/dL 0.57-1.25 qbxd=727) GLUCOSE RANDOM (BEAKER) 173 mg/dL 70-105 (test wedw=106) CALCIUM (BEAKER) (test 8.4 mg/dL 8.4-10.2 ojgn=463) EGFR (BEAKER) (test INSUFFICIENT CLINICAL DATA TO ziik=8871) CALCULATE ESTIMATED GFR. POCT-GLUCOSE [id number] 11:53:00 Test Item Value Reference Range Comments POC-GLUCOSE METER (BEAKER) 135 mg/dL 70-110 TESTED AT [facility] [address] (test fqfj=5516) [facility] [address] BLOOD GAS, [id number] 11:08:00 Test Item Value Reference Range Comments PH VENOUS (BEAKER) (test wbfi=369) 7.34 7.32-7.42 PCO2 VENOUS (BEAKER) (test lulm=062) 50 mmHg 41-51 PO2 VENOUS (BEAKER) (test pmkz=049) 49 mmHg 25-40 O2 SATURATION VENOUS (BEAKER) (test zobp=578) 82.0 % 40.0-70.0 HCO3 VENOUS (BEAKER) (test faey=156) 27 mmol/L 21-29 BASE EXCESS VENOUS (BEAKER) (test nlml=679) 0.5 mmol/L -2.0-3.0 PATIENT TEMPERATURE (BEAKER) (test gvfn=5170) 37.0 C FIO2 (BEAKER) (test jiyi=7332) 100.0 % CBC W/PLT COUNT & AUTO [id number] 07:52:00 Test Item Value Reference Range Comments WHITE BLOOD CELL COUNT (BEAKER) 9.9 K/ L 3.5-10.5 (test txdn=556) RED BLOOD CELL COUNT (BEAKER) 3.94 M/ L 3.93-5.22 (test wwzw=877) HEMOGLOBIN (BEAKER) (test 11.8 GM/DL 11.2-15.7 nvzl=069) HEMATOCRIT (BEAKER) (test 35.7 % 34.1-44.9 ijro=093) MEAN CORPUSCULAR VOLUME 90.6 fL 79.4-94.8 (BEAKER) (test svnm=513) MEAN CORPUSCULAR HEMOGLOBIN 29.9 pg 25.6-32.2 (BEAKER) (test vhvp=650) MEAN CORPUSCULAR HEMOGLOBIN 33.1 GM/DL 32.2-35.5 CONC (BEAKER) (test stmj=480) RED CELL DISTRIBUTION WIDTH 14.7 % 11.7-14.4 (BEAKER) (test uusn=581) PLATELET COUNT (BEAKER) (test 128 K/CU MM 150-450 sjmd=901) MEAN PLATELET VOLUME (BEAKER) 11.6 fL 9.4-12.3 MPV-Approximately 20% (test hodc=793) positive bias due to method change. NUCLEATED RED BLOOD CELLS 0 /100 WBC 0-0 (BEAKER) (test ucuv=321) (CELLAVISION MANUAL DIFF)2019-06-30 07:52:00 Test Item Value Reference Range Comments NEUTROPHILS - REL (CELLAVISION)(BEAKER) (test 81 % byde=6858) LYMPHOCYTES - REL (CELLAVISION)(BEAKER) (test 9 % stjp=5346) MONOCYTES - REL (CELLAVISION)(BEAKER) (test 4 % wajv=9345) BANDS - REL (CELLAVISION)(BEAKER) (test hnrh=7627) 5 % 0-10 NEUTROPHILS - ABS (CELLAVISION)(BEAKER) (test 8.02 K/ul 1.56-6.13 vxdf=6472) LYMPHOCYTES - ABS (CELLAVISION)(BEAKER) (test 0.89 K/ul 1.18-3.74 nwkl=1809) MONOCYTES - ABS (CELLAVISION)(BEAKER) (test 0.40 K/uL 0.24-0.36 leuo=6098) BANDS - ABS (CELLAVISION)(BEAKER) (test avue=3863) 0.50 K/uL 0.00-0.80 TOTAL COUNTED (BEAKER) (test hctg=2512) 100 PLT MORPHOLOGY (BEAKER) (test jrzf=013) Normal DOHLE BODIES (BEAKER) (test lnge=607) Present TOXIC GRANULATION (BEAKER) (test dyjm=461) Present POLYCHROMATOPHILLIC RBCS(BEAKER) (test mrhw=418) 1+ few ANISOCYTOSIS (BEAKER) (test mnmy=976) 1+ few POIKILOCYTES (BEAKER) (test ddoo=801) 1+ few JOSSY CELLS (BEAKER) (test zfbb=014) 1+ few ARTIFACT (CELLAVISION)(BEAKER) (test jabl=2994) Present PLATELET CONCENTRATION (CELLAVISION)(BEAKER) (test Decreased wysn=5148) Received comment: User comments: Slide comments:RAD, ABDOMEN/KUB, 1 VIEW [id number] 07:41:00Reason for exam:->ileusShould this be performed at [...] MDReport Verified Date/Time: 06/30/2019 07:41:54 Reading Location: [address] Neuro Reading Room RAD, CHEST, 1 VIEW, NON [id number] 07:39:00Reason for exam:->sobShould this be performed at [...] MDReport Verified Date/Time: 06/30/2019 07:39:31 Reading Location: [facility] C013V Neuro Reading Room COMPREHENSIVE METABOLIC [id number] 03:49:00 Test Item Value Reference Range Comments TOTAL PROTEIN (BEAKER) (test 6.1 gm/dL 6.0-8.3 cukl=064) ALBUMIN (BEAKER) (test 3.0 g/dL 3.5-5.0 qmmn=4349) ALKALINE PHOSPHATASE (BEAKER) 58 U/L 40-150 (test fjrl=825) BILIRUBIN TOTAL (BEAKER) 0.4 mg/dL 0.2-1.2 (test eypl=818) SODIUM (BEAKER) (test 136 meq/L 136-145 eizr=665) POTASSIUM (BEAKER) (test 3.8 meq/L 3.5-5.1 stdu=082) CHLORIDE (BEAKER) (test 98 meq/L 98-107 aiyp=128) CO2 (BEAKER) (test ykow=880) 26 meq/L 22-29 BLOOD UREA NITROGEN (BEAKER) 77 mg/dL 7-21 (test srlo=799) CREATININE (BEAKER) (test 3.03 mg/dL 0.57-1.25 dkzj=441) GLUCOSE RANDOM (BEAKER) (test 173 mg/dL 70-105 kqnp=591) CALCIUM (BEAKER) (test 9.0 mg/dL 8.4-10.2 fwwb=984) AST (SGOT) (BEAKER) (test 19 U/L 5-34 clxu=878) ALT (SGPT) (BEAKER) (test 13 U/L 6-55 iutf=969) EGFR (BEAKER) (test INSUFFICIENT CLINICAL DATA TO sysk=7664) CALCULATE ESTIMATED GFR. [id number] 03:42:00 Test Item Value Reference Range Comments PHOSPHORUS (BEAKER) (test slvz=597) 5.8 mg/dL 2.3-4.7 [id number] 03:42:00 Test Item Value Reference Range Comments MAGNESIUM (BEAKER) (test jbxy=057) 2.3 mg/dL 1.6-2.6 CALCIUM, [id number] 03:31:00 Test Item Value Reference Range Comments CALCIUM IONIZED (BEAKER) (test hyfa=789) 1.09 mmol/L 1.12-1.27 PH, BLOOD (BEAKER) (test annb=2224) 7.31 BASIC METABOLIC [id number] 20:52:00 Test Item Value Reference Range Comments SODIUM (BEAKER) (test 134 meq/L 136-145 dnxi=245) POTASSIUM (BEAKER) (test 3.9 meq/L 3.5-5.1 Specimen moderately hemolyzed tevr=596) CHLORIDE (BEAKER) (test 99 meq/L 98-107 rsqu=423) CO2 (BEAKER) (test whff=877) 23 meq/L 22-29 BLOOD UREA NITROGEN (BEAKER) 74 mg/dL 7-21 (test wsda=872) CREATININE (BEAKER) (test 3.10 mg/dL 0.57-1.25 Specimen moderately hemolyzed ktxf=617) GLUCOSE RANDOM (BEAKER) 204 mg/dL 70-105 (test hdok=597) CALCIUM (BEAKER) (test 8.5 mg/dL 8.4-10.2 tdld=847) EGFR (BEAKER) (test INSUFFICIENT CLINICAL DATA TO lpfm=8217) CALCULATE ESTIMATED GFR. [id number] 20:32:00 Test Item Value Reference Range Comments ACTIVATED CLOTTING TIME 120 sec Reference Range: 74-137 (BEAKER) (test hhte=124) seconds, Baseline/TESTED AT [place] [address] [id number] 18:28:00 Test Item Value Reference Range Comments ACTIVATED CLOTTING TIME 136 sec Reference Range: 74-137 (BEAKER) (test thox=330) seconds, Baseline/TESTED AT [place] [address] POCT-GLUCOSE [id number] 17:26:00 Test Item Value Reference Range Comments POC-GLUCOSE METER (BEAKER) 189 mg/dL 70-110 TESTED AT [address] (test ooxa=8719) [place] [address] [id number] 17:13:00 Test Item Value Reference Range Comments ACTIVATED CLOTTING TIME 147 sec Reference Range: 74-137 (BEAKER) (test trol=767) seconds, Baseline/TESTED AT [place] [address] [id number] 16:50:00 Test Item Value Reference Range Comments ACTIVATED CLOTTING TIME 158 sec Reference Range: 74-137 (BEAKER) (test gmtt=520) seconds, Baseline/TESTED AT [place] [address] BASIC METABOLIC [id number] 15:22:00 Test Item Value Reference Range Comments SODIUM (BEAKER) (test 135 meq/L 136-145 agkd=667) POTASSIUM (BEAKER) (test 3.9 meq/L 3.5-5.1 hfmd=636) CHLORIDE (BEAKER) (test 99 meq/L 98-107 arnn=984) CO2 (BEAKER) (test qyjw=054) 24 meq/L 22-29 BLOOD UREA NITROGEN (BEAKER) 71 mg/dL 7-21 (test foqt=291) CREATININE (BEAKER) (test 2.98 mg/dL 0.57-1.25 uxcp=639) GLUCOSE RANDOM (BEAKER) 179 mg/dL 70-105 (test olka=120) CALCIUM (BEAKER) (test 8.8 mg/dL 8.4-10.2 kufa=603) EGFR (BEAKER) (test INSUFFICIENT CLINICAL DATA TO njye=6866) CALCULATE ESTIMATED GFR. [id number] 14:36:00 Test Item Value Reference Range Comments ACTIVATED CLOTTING TIME 219 sec Reference Range: 74-137 (BEAKER) (test dxng=066) seconds, Baseline/TESTED AT [place] [address] [id number] 13:50:00 Test Item Value Reference Range Comments ACTIVATED CLOTTING TIME 257 sec Reference Range: 74-137 (BEAKER) (test mhoj=209) seconds, Baseline/TESTED AT [place] [address] RAD, ABDOMEN/KUB, 1 VIEW [id number] 10:18:00Reason for exam:->ileusShould this be performed at the bedside?->YesFINAL REPORT CLINICAL HISTORY: ileus TECHNIQUE: Supine abdomen COMPARISON: 06/28/2019 IMPRESSION: The bowel gas pattern is nonspecific. Free air and air-fluid levels are not seen but cannot be definitively excluded on the supine view. Vascular stents are again seen in the left upper abdomen and midline lower abdomen. Signed: Antolin Jarrell [facility] Verified Date/Time: 06/29/201910:18:28 Reading Location: [facility] Radiology Reading Room RAD, CHEST, 1 VIEW, NON [id number] 09:28:00Reason for exam:->sobShould this be performed at the bedside?-> YesFINAL REPORT CLINICAL HISTORY: sob TECHNIQUE: 1 view of the chest. COMPARISON: 06/28/2019 IMPRESSION: The left jugular line is unchanged. Minimal bibasilar atelectasis is unchanged. The cardiomediastinal silhouette is magnified by technique. Signed: Antolin Jarrell MDReport Verified Date/Time: 06/29/2019 09:28:17 Reading Location: [facility] Radiology Reading Room CBC W/PLT COUNT & AUTO [id number] 08:40:00 Test Item Value Reference Range Comments WHITE BLOOD CELL COUNT (BEAKER) 11.1 K/ L 3.5-10.5 (test kopg=335) RED BLOOD CELL COUNT (BEAKER) 4.37 M/ L 3.93-5.22 (test hrwx=584) HEMOGLOBIN (BEAKER) (test 13.0 GM/DL 11.2-15.7 pjod=024) HEMATOCRIT (BEAKER) (test 39.6 % 34.1-44.9 rqhr=422) MEAN CORPUSCULAR VOLUME 90.6 fL 79.4-94.8 (BEAKER) (test rbjq=994) MEAN CORPUSCULAR HEMOGLOBIN 29.7 pg 25.6-32.2 (BEAKER) (test sljs=658) MEAN CORPUSCULAR HEMOGLOBIN 32.8 GM/DL 32.2-35.5 CONC (BEAKER) (test lcbp=836) RED CELL DISTRIBUTION WIDTH 14.7 % 11.7-14.4 (BEAKER) (test smvu=583) PLATELET COUNT (BEAKER) (test 120 K/CU MM 150-450 lzxt=513) MEAN PLATELET VOLUME (BEAKER) 11.0 fL 9.4-12.3 MPV-Approximately 20% (test znwt=872) positive bias due to method change. NUCLEATED RED BLOOD CELLS 0 /100 WBC 0-0 (BEAKER) (test bgwf=192) (CELLAVISION MANUAL DIFF)2019-06-29 08:40:00 Test Item Value Reference Range Comments NEUTROPHILS - REL (CELLAVISION)(BEAKER) (test 79 % qfab=6271) LYMPHOCYTES - REL (CELLAVISION)(BEAKER) (test 7 % yucn=6388) MONOCYTES - REL (CELLAVISION)(BEAKER) (test 6 % eeny=7473) BANDS - REL (CELLAVISION)(BEAKER) (test rfuz=5440) 8 % 0-10 NEUTROPHILS - ABS (CELLAVISION)(BEAKER) (test 8.77 K/ul 1.56-6.13 xhaf=9862) LYMPHOCYTES - ABS (CELLAVISION)(BEAKER) (test 0.78 K/ul 1.18-3.74 rwla=6704) MONOCYTES - ABS (CELLAVISION)(BEAKER) (test 0.67 K/uL 0.24-0.36 bxix=8469) BANDS - ABS (CELLAVISION)(BEAKER) (test ebpd=4636) 0.89 K/uL 0.00-0.80 TOTAL COUNTED (BEAKER) (test wfvg=1436) 100 RBC MORPHOLOGY (BEAKER) (test rwby=037) Normal WBC MORPHOLOGY (BEAKER) (test xjic=342) Normal PLT MORPHOLOGY (BEAKER) (test iyvg=847) Normal ARTIFACT (CELLAVISION)(BEAKER) (test ngvi=7222) Present PLATELET CONCENTRATION (CELLAVISION)(BEAKER) (test Decreased qyyg=1430) Received comment: User comments: Slide comments:BLOOD GAS, [id number] 04 :40:00 Test Item Value Reference Range Comments PH ARTERIAL (BEAKER) (test dvle=338) 7.45 7.35-7.45 PCO2 ARTERIAL (BEAKER) (test yhhw=228) 34 mmHg 35-45 PO2 ARTERIAL (BEAKER) (test nuhi=635) 74 mmHg 80-90 O2 SATURATION ARTERIAL (BEAKER) (test fhwd=014) 95.5 % 96.0-97.0 HCO3 ARTERIAL (BEAKER) (test xjtr=082) 23 mmol/L 21-29 BASE EXCESS ARTERIAL (BEAKER) (test fpim=730) -0.6 mmol/L -2.0-3.0 PATIENT TEMPERATURE (BEAKER) (test iyqn=4033) 37.0 C FIO2 (BEAKER) (test nstu=8676) 44.0 % COMPREHENSIVE METABOLIC [id number] 04:37:00 Test Item Value Reference Range Comments TOTAL PROTEIN (BEAKER) (test 6.2 gm/dL 6.0-8.3 refy=396) ALBUMIN (BEAKER) (test 3.0 g/dL 3.5-5.0 sden=2341) ALKALINE PHOSPHATASE (BEAKER) 57 U/L 40-150 (test fpjm=223) BILIRUBIN TOTAL (BEAKER) 0.6 mg/dL 0.2-1.2 (test oobi=403) SODIUM (BEAKER) (test 134 meq/L 136-145 jeym=996) POTASSIUM (BEAKER) (test 3.7 meq/L 3.5-5.1 nwsb=554) CHLORIDE (BEAKER) (test 98 meq/L 98-107 nlsc=575) CO2 (BEAKER) (test mvfi=008) 25 meq/L 22-29 BLOOD UREA NITROGEN (BEAKER) 65 mg/dL 7-21 (test ujun=397) CREATININE (BEAKER) (test 2.99 mg/dL 0.57-1.25 twpy=522) GLUCOSE RANDOM (BEAKER) (test 157 mg/dL 70-105 fjwh=655) CALCIUM (BEAKER) (test 8.6 mg/dL 8.4-10.2 osha=900) AST (SGOT) (BEAKER) (test 20 U/L 5-34 qsba=383) ALT (SGPT) (BEAKER) (test 13 U/L 6-55 nkhf=848) EGFR (BEAKER) (test INSUFFICIENT CLINICAL DATA TO mrws=0603) CALCULATE ESTIMATED GFR. B-TYPE NATRIURETIC FACTOR (BNP)2019-06-29 04:34:00 Test Item Value Reference Range Comments B-TYPE NATRIURETIC PEPTIDE (BEAKER) (test 848 pg/mL 0-100 ccxz=630) [id number] 04:33:00 Test Item Value Reference Range Comments PHOSPHORUS (BEAKER) (test bswu=054) 5.2 mg/dL 2.3-4.7 [id number] 04:33:00 Test Item Value Reference Range Comments MAGNESIUM (BEAKER) (test nlqi=493) 1.8 mg/dL 1.6-2.6 CALCIUM, [id number] 04:22:00 Test Item Value Reference Range Comments CALCIUM IONIZED (BEAKER) (test pvrh=127) 1.09 mmol/L 1.12-1.27 PH, BLOOD (BEAKER) (test hkkl=7668) 7.39 BASIC METABOLIC [id number] 22:10:00 Test Item Value Reference Range Comments SODIUM (BEAKER) (test 136 meq/L 136-145 opnn=473) POTASSIUM (BEAKER) (test 3.4 meq/L 3.5-5.1 Specimen slightly hemolyzed uxhm=694) CHLORIDE (BEAKER) (test 99 meq/L 98-107 rhxz=463) CO2 (BEAKER) (test ltof=235) 24 meq/L 22-29 BLOOD UREA NITROGEN (BEAKER) 62 mg/dL 7-21 (test pwko=657) CREATININE (BEAKER) (test 3.07 mg/dL 0.57-1.25 Specimen slightly hemolyzed kxbv=754) GLUCOSE RANDOM (BEAKER) 206 mg/dL 70-105 (test fgzm=273) CALCIUM (BEAKER) (test 8.7 mg/dL 8.4-10.2 enex=076) EGFR (BEAKER) (test INSUFFICIENT CLINICAL DATA TO dmky=3832) CALCULATE ESTIMATED GFR. POCT-GLUCOSE [id number] 18:08:00 Test Item Value Reference Range Comments POC-GLUCOSE METER (BEAKER) 180 mg/dL 70-110 TESTED AT [address] (test mttk=5758) [facility] [address] BLOOD GAS, [id number] 16:21:00 Test Item Value Reference Range Comments PH VENOUS (BEAKER) (test psbk=485) 7.33 7.32-7.42 PCO2 VENOUS (BEAKER) (test ubvo=927) 49 mmHg 41-51 PO2 VENOUS (BEAKER) (test rpss=414) 50 mmHg 25-40 O2 SATURATION VENOUS (BEAKER) (test wscq=223) 83.0 % 40.0-70.0 HCO3 VENOUS (BEAKER) (test xifs=195) 25 mmol/L 21-29 BASE EXCESS VENOUS (BEAKER) (test fwhz=405) -1.1 mmol/L -2.0-3.0 PATIENT TEMPERATURE (BEAKER) (test xaon=0306) 37.0 C RAD, CHEST, 1 VIEW, NON [id number] 14:41:00Reason for exam:->eval central lineShould this be [...] MDReport Verified Date/Time: 06/28/2019 14:41:37 Reading Location: [facility] Mammo Reading Room RESPIRATORY PANEL [id number] 14:06:00 Test Item Value Reference Range Comments HUMAN METAPNEUMOVIRUS Not detected Not detected, (BEAKER) (test qwav=6266) Equivocal RHINOVIRUS (BEAKER) (test Not detected Not detected, houd=4106) Equivocal INFLUENZA A (BEAKER) (test Not detected Not detected, eafu=7586) Equivocal INFLUENZA A (NO SUBTYPE) (test zbyc=8370) INFLUENZA A SUBTYPE H1 (BEAKER) (test jokc=7757) INFLUENZA A SUBTYPE H3 (BEAKER) (test fygg=6564) INFLUENZA A SUBTYPE H1-2009 (BEAKER) (test caij=9246) INFLUENZA B (BEAKER) (test Not detected Not detected, rycp=1613) Equivocal RESPIRATORY SYNCYTIAL Not detected Not detected, VIRUS (BEAKER) (test Equivocal gyal=8548) PARAINFLUENZA VIRUS 1 Detected Not detected, Contact isolation if (BEAKER) (test vsug=7724) Equivocal immunosuppressed or young children. Consider stopping antibiotics. PARAINFLUENZA VIRUS 2 Not detected Not detected, (BEAKER) (test ozmj=2198) Equivocal PARAINFLUENZA VIRUS 3 Not detected Not detected, (BEAKER) (test jdkl=7697) Equivocal PARAINFLUENZA VIRUS 4 Not detected Not detected, (BEAKER) (test xsho=6338) Equivocal ADENOVIRUS (BEAKER) (test Not detected Not detected, avtp=1440) Equivocal CORONAVIRUS 229E (BEAKER) Not detected Not detected, (test yigm=6532) Equivocal CORONAVIRUS HKU1 (BEAKER) Not detected Not detected, (test ahcr=7310) Equivocal CORONAVIRUS NL63 (BEAKER) Not detected Not detected, (test mmqr=5769) Equivocal CORONAVIRUS OC43 (BEAKER) Not detected Not detected, (test deug=8892) Equivocal BORDETELLA PERTUSSIS Not detected Not detected, (BEAKER) (test zqyr=0481) Equivocal CHLAMYDOPHILA PNEUMONIAE Not detected Not detected, (BEAKER) (test nrxp=7634) Equivocal MYCOPLASMA PNEUMONIAE Not detected Not detected, (BEAKER) (test tvpl=2590) Equivocal Other viruses and bacteria not targeted by this PCR panel cannot be excluded; therefore clinical correlation and follow up of serology, culture results, and other molecular studies is required. The results are not intended to be used as the sole means for clinical diagnosis or patient management decisions. This sample was tested at the [facility] using the [employer] SensiboArray Respiratory Panel. It is FDA cleared and has been verified and approved by the [facility] for clinical use on nasopharyngeal swab specimens.The performance of the FilmArrayRP has not been established in individuals who received influenza vaccine. Recent administration ofa nasal influenza vaccine may cause false positive results for Influenza A and/orInfluenza B.CBC W/PLT COUNT & AUTO [id number] 13:11:00 Test Item Value Reference Range Comments WHITE BLOOD CELL COUNT (BEAKER) (test mkhz=403) 11.7 K/ L 3.5-10.5 RED BLOOD CELL COUNT (BEAKER) (test ymev=010) 4.84 M/ L 3.93-5.22 HEMOGLOBIN (BEAKER) (test abpz=026) 14.5 GM/DL 11.2-15.7 HEMATOCRIT (BEAKER) (test hxne=817) 43.9 % 34.1-44.9 MEAN CORPUSCULAR VOLUME (BEAKER) (test bofw=628) 90.7 fL 79.4-94.8 MEAN CORPUSCULAR HEMOGLOBIN (BEAKER) (test 30.0 pg 25.6-32.2 qsin=428) MEAN CORPUSCULAR HEMOGLOBIN CONC (BEAKER) (test 33.0 GM/DL 32.2-35.5 ukmc=388) RED CELL DISTRIBUTION WIDTH (BEAKER) (test 15.1 % 11.7-14.4 vklg=396) PLATELET COUNT (BEAKER) (test zmyt=700) 167 K/CU MM 150-450 MEAN PLATELET VOLUME (BEAKER) (test gsrc=879) 11.0 fL 9.4-12.3 NUCLEATED RED BLOOD CELLS (BEAKER) (test 0 /100 WBC 0-0 lsbq=501) (CELLAVISION MANUAL DIFF)2019-06-28 13:11:00 Test Item Value Reference Range Comments NEUTROPHILS - REL (CELLAVISION)(BEAKER) (test 56 % zohe=2583) LYMPHOCYTES - REL (CELLAVISION)(BEAKER) (test 4 % qwny=6151) MONOCYTES - REL (CELLAVISION)(BEAKER) (test 2 % oxlt=3049) BANDS - REL (CELLAVISION)(BEAKER) (test 37 % 0-10 ffbz=5554) ATYPICAL LYMPHOCYTES - REL (CELLAVISION)(BEAKER) 1 % 0-0 (test ptfw=9462) NEUTROPHILS - ABS (CELLAVISION)(BEAKER) (test 6.55 K/ul 1.56-6.13 xupq=1512) LYMPHOCYTES - ABS (CELLAVISION)(BEAKER) (test 0.47 K/ul 1.18-3.74 qamr=3767) MONOCYTES - ABS (CELLAVISION)(BEAKER) (test 0.23 K/uL 0.24-0.36 tapd=0132) BANDS - ABS (CELLAVISION)(BEAKER) (test 4.33 K/uL 0.00-0.80 ndnh=5238) ATYPICAL LYMPHOCYTES - ABS (CELLAVISION)(BEAKER) 0.12 K/uL 0.00-0.00 (test xbrh=9902) TOTAL COUNTED (BEAKER) (test iifa=3516) 100 PLT MORPHOLOGY (BEAKER) (test ycce=225) Normal SMUDGE CELLS (BEAKER) (test eavd=6234) Present ANISOCYTOSIS (BEAKER) (test gpmj=896) 1+ few POIKILOCYTES (BEAKER) (test asoe=744) 3+ many SCHISTOCYTES (BEAKER) (test fnbn=931) 1+ few JOSSY CELLS (BEAKER) (test dwff=210) 2+ moderate PLATELET CONCENTRATION (CELLAVISION)(BEAKER) Adequate (test eqsl=3789) Received comment: User comments: Slide comments:POCT-GLUCOSE [id number] 12: 54:00 Test Item Value Reference Range Comments POC-GLUCOSE METER (BEAKER) 186 mg/dL 70-110 TESTED AT [facility] [address] (test xbgd=0851) [facility] [address] BASIC METABOLIC [id number] 12:30:00 Test Item Value Reference Range Comments SODIUM (BEAKER) (test 133 meq/L 136-145 qjux=021) POTASSIUM (BEAKER) (test 3.8 meq/L 3.5-5.1 Specimen moderately hemolyzed xczf=107) CHLORIDE (BEAKER) (test 101 meq/L 98-107 fmhq=624) CO2 (BEAKER) (test gltn=799) 20 meq/L 22-29 BLOOD UREA NITROGEN (BEAKER) 55 mg/dL 7-21 (test jtqt=774) CREATININE (BEAKER) (test 2.83 mg/dL 0.57-1.25 Specimen moderately hemolyzed ibvl=999) GLUCOSE RANDOM (BEAKER) 193 mg/dL 70-105 (test vfiq=081) CALCIUM (BEAKER) (test 8.6 mg/dL 8.4-10.2 gpvd=180) EGFR (BEAKER) (test INSUFFICIENT CLINICAL DATA TO ccvr=1565) CALCULATE ESTIMATED GFR. RAD, CHEST, 1 VIEW, NON [id number] 12:19:00Reason for exam:->sobShould this be performed at the bedside?->YesFINAL REPORT CLINICAL HISTORY: sob TECHNIQUE: 1 view of the chest. COMPARISON: 06/27/2019 IMPRESSION: Bilateral lower lung bandlike opacities are unchanged. There is no significant pleural fluid. The cardiomediastinal silhouette is magnified by technique. Signed: Antolin Jarrell MDReport Verified Date/Time: 06/28/2019 12:19: 20 Reading Location: [facility] Reading Room B-TYPE NATRIURETIC FACTOR (BNP)2019-06-28 12:17:00 Test Item Value Reference Range Comments B-TYPE NATRIURETIC PEPTIDE (BEAKER) (test 1699 pg/mL 0-100 wnso=911) BLOOD GAS, [id number] 11:45:00 Test Item Value Reference Range Comments PH ARTERIAL (BEAKER) (test mhre=809) 7.45 7.35-7.45 PCO2 ARTERIAL (BEAKER) (test samc=722) 33 mmHg 35-45 PO2 ARTERIAL (BEAKER) (test jtwm=665) 66 mmHg 80-90 O2 SATURATION ARTERIAL (BEAKER) (test cemp=880) 94.5 % 96.0-97.0 HCO3 ARTERIAL (BEAKER) (test ijut=604) 22 mmol/L 21-29 BASE EXCESS ARTERIAL (BEAKER) (test ojyc=301) -1.0 mmol/L -2.0-3.0 PATIENT TEMPERATURE (BEAKER) (test piyq=7533) 36.4 C FIO2 (BEAKER) (test humo=0308) 30.0 % RAD, ABDOMEN/KUB, 1 VIEW [id number] 10:06:00Reason for exam:->abdominal distentionFINAL REPORT EXAM: AP [...] MDReport Verified Date/Time: 06/28/2019 10:06:41 Reading Location: [facility] Mammo Reading Room 10: 06AMBASIC METABOLIC [id number] 06:46:00 Test Item Value Reference Range Comments SODIUM (BEAKER) (test 134 meq/L 136-145 nfij=547) POTASSIUM (BEAKER) (test 3.9 meq/L 3.5-5.1 Specimen slightly hemolyzed enqx=521) CHLORIDE (BEAKER) (test 101 meq/L 98-107 fqrf=657) CO2 (BEAKER) (test axmu=387) 18 meq/L 22-29 BLOOD UREA NITROGEN (BEAKER) 53 mg/dL 7-21 (test vfqe=280) CREATININE (BEAKER) (test 2.69 mg/dL 0.57-1.25 Specimen slightly hemolyzed wzzq=249) GLUCOSE RANDOM (BEAKER) 190 mg/dL 70-105 (test ecxh=861) CALCIUM (BEAKER) (test 8.6 mg/dL 8.4-10.2 oyhr=309) EGFR (BEAKER) (test INSUFFICIENT CLINICAL DATA TO toqi=8340) CALCULATE ESTIMATED GFR. [id number] 06:44:00 Test Item Value Reference Range Comments MAGNESIUM (BEAKER) (test 1.7 mg/dL 1.6-2.6 Specimen slightly hemolyzed hhye=860) U/S, RENAL, [id number] 04:41:00Reason for exam:->AKIFINAL REPORT U/S, RENAL, COMPLETEUltrasound [...] MCMANUS MD on 06/28/2019 04:41 AMBASIC METABOLIC [id number] 22:01:00 Test Item Value Reference Range Comments SODIUM (BEAKER) (test 131 meq/L 136-145 rjwl=019) POTASSIUM (BEAKER) (test 4.1 meq/L 3.5-5.1 Specimen moderately hemolyzed qlnn=543) CHLORIDE (BEAKER) (test 102 meq/L 98-107 joje=148) CO2 (BEAKER) (test odbx=158) 15 meq/L 22-29 BLOOD UREA NITROGEN (BEAKER) 46 mg/dL 7-21 (test arfm=632) CREATININE (BEAKER) (test 2.40 mg/dL 0.57-1.25 Specimen moderately hemolyzed zlqi=914) GLUCOSE RANDOM (BEAKER) 279 mg/dL 70-105 (test mgzg=114) CALCIUM (BEAKER) (test 7.6 mg/dL 8.4-10.2 efsc=667) EGFR (BEAKER) (test INSUFFICIENT CLINICAL DATA TO gjkm=9989) CALCULATE ESTIMATED GFR. OSMOLALITY, [id number] 21:57:00 Test Item Value Reference Range Comments OSMOLALITY URINE (BEAKER) (test uzxr=298) 309 mOsm/kg 40-1,400 PROTEIN, RANDOM [id number] 21:57:00 Test Item Value Reference Range Comments PROTEIN, URINE (BEAKER) (test dkal=3704) < mg/dL 0-14 CREATININE, RANDOM [id number] 21:52:00 Test Item Value Reference Range Comments CREATININE URINE (BEAKER) (test adez=557) 14.2 mg/dL Reference Range: No NormalsSODIUM, RANDOM [id number] 21:52:00 Test Item Value Reference Range Comments SODIUM URINE (BEAKER) (test jowp=945) 105 meq/L Reference Range: No NormalsURINALYSIS W/ [id number] 21:47:00 Test Item Value Reference Range Comments COLOR (BEAKER) (test rgeq=353) Light Yellow CLARITY (BEAKER) (test qabn=799) Clear SPECIFIC GRAVITY UA (BEAKER) (test lwav=671) 1.006 1.001-1.035 PH UA (BEAKER) (test avaa=211) 5.0 5.0-8.0 PROTEIN UA (BEAKER) (test hfvz=216) Negative Negative GLUCOSE UA (BEAKER) (test dqon=599) Negative Negative KETONES UA (BEAKER) (test dgul=502) Negative Negative BILIRUBIN UA (BEAKER) (test thlk=789) Negative Negative BLOOD UA (BEAKER) (test ihiu=786) Negative Negative NITRITE UA (BEAKER) (test trko=464) Negative Negative LEUKOCYTE ESTERASE UA (BEAKER) (test urhh=985) Large Negative UROBILINOGEN UA (BEAKER) (test xqqu=566) 0.2 mg/dL 0.2-1.0 RBC UA (BEAKER) (test egok=398) 1 /HPF WBC UA (BEAKER) (test iatm=023) 9 /HPF BACTERIA (BEAKER) (test xarn=248) Occasional HYALINE CASTS (BEAKER) (test oves=180) 2 /LPF GRANULAR CASTS (BEAKER) (test pbof=778) 5 /LPF YEAST (BEAKER) (test vjqr=8222) Occasional SOURCE(BEAKER) (test jkmq=1372) POCT-GLUCOSE [id number] 18:42:00 Test Item Value Reference Range Comments POC-GLUCOSE METER (BEAKER) 203 mg/dL 70-110 TESTED AT [facility] [address] (test hjxp=3121) [facility] [address] B-TYPE NATRIURETIC FACTOR (BNP)2019-06-27 18:16:00 Test Item Value Reference Range Comments B-TYPE NATRIURETIC PEPTIDE (BEAKER) (test 2545 pg/mL 0-100 rtda=510) BASIC METABOLIC [id number] 18:12:00 Test Item Value Reference Range Comments SODIUM (BEAKER) (test 135 meq/L 136-145 uhtt=546) POTASSIUM (BEAKER) (test 4.7 meq/L 3.5-5.1 Specimen slightly hemolyzed saup=032) CHLORIDE (BEAKER) (test 105 meq/L 98-107 qabc=307) CO2 (BEAKER) (test yull=905) 18 meq/L 22-29 BLOOD UREA NITROGEN (BEAKER) 46 mg/dL 7-21 (test xmwg=101) CREATININE (BEAKER) (test 2.43 mg/dL 0.57-1.25 Specimen slightly hemolyzed fgbv=874) GLUCOSE RANDOM (BEAKER) 197 mg/dL 70-105 (test heac=724) CALCIUM (BEAKER) (test 8.5 mg/dL 8.4-10.2 kbkx=054) EGFR (BEAKER) (test INSUFFICIENT CLINICAL DATA TO phdj=0096) CALCULATE ESTIMATED GFR. LACTIC ACID, [id number] 18:06:00 Test Item Value Reference Range Comments LACTATE BLOOD ARTERIAL (2) 1.6 mmol/L 0.5-2.2 Specimen slightly hemolyzed (BEAKER) (test iwgz=3514) BLOOD GAS, [id number] 15:46:00 Test Item Value Reference Range Comments PH ARTERIAL (BEAKER) (test zice=346) 7.35 7.35-7.45 PCO2 ARTERIAL (BEAKER) (test lhpy=435) 37 mmHg 35-45 PO2 ARTERIAL (BEAKER) (test ybjf=196) 83 mmHg 80-90 O2 SATURATION ARTERIAL (BEAKER) (test urxp=860) 95.8 % 96.0-97.0 HCO3 ARTERIAL (BEAKER) (test jojk=593) 20 mmol/L 21-29 BASE EXCESS ARTERIAL (BEAKER) (test drig=495) -5.1 mmol/L -2.0-3.0 PATIENT TEMPERATURE (BEAKER) (test ttch=1030) 37.0 C FIO2 (BEAKER) (test rwws=1630) 50.0 % RAD, CHEST, 1 VIEW, NON [id number] 15:01:00Reason for exam:->sobShould this be performed at [...] MDReport Verified Date/Time: 06/27/2019 15:01:18 Reading Location: [facility] B1 C013X OrthoConsult Reading Room BLOOD GAS, [id number] 14:35:00 Test Item Value Reference Range Comments PH ARTERIAL (BEAKER) (test zoap=140) 7.29 7.35-7.45 PCO2 ARTERIAL (BEAKER) (test uaql=012) 46 mmHg 35-45 PO2 ARTERIAL (BEAKER) (test cmbc=027) 115 mmHg 80-90 O2 SATURATION ARTERIAL (BEAKER) (test gpsg=706) 97.7 % 96.0-97.0 HCO3 ARTERIAL (BEAKER) (test apvu=270) 21 mmol/L 21-29 BASE EXCESS ARTERIAL (BEAKER) (test bxyb=989) -5.5 mmol/L -2.0-3.0 PATIENT TEMPERATURE (BEAKER) (test dnch=2230) 36.8 C FIO2 (BEAKER) (test lawr=9755) 100.0 % POCT-GLUCOSE [id number] 12:41:00 Test Item Value Reference Range Comments POC-GLUCOSE METER (BEAKER) 203 mg/dL 70-110 TESTED AT [facility] [address] (test luvw=5576) [facility] [address] RAPID INFLUENZA A&B [id number] 10:04:00 Test Item Value Reference Range Comments RAPID INFLUENZA A AG (BEAKER) (test Negative Negative, Inconclusive yylp=6812) RAPID INFLUENZA B AG (BEAKER) (test Negative Negative, Inconclusive ozsw=0305) CBC W/PLT COUNT & AUTO [id number] 07:43:00 Test Item Value Reference Range Comments WHITE BLOOD CELL COUNT (BEAKER) (test dbyn=377) 16.7 K/ L 3.5-10.5 RED BLOOD CELL COUNT (BEAKER) (test qqlc=159) 4.81 M/ L 3.93-5.22 HEMOGLOBIN (BEAKER) (test zeuu=879) 14.4 GM/DL 11.2-15.7 HEMATOCRIT (BEAKER) (test xhzg=799) 45.5 % 34.1-44.9 MEAN CORPUSCULAR VOLUME (BEAKER) (test pnjq=399) 94.6 fL 79.4-94.8 MEAN CORPUSCULAR HEMOGLOBIN (BEAKER) (test 29.9 pg 25.6-32.2 odww=599) MEAN CORPUSCULAR HEMOGLOBIN CONC (BEAKER) (test 31.6 GM/DL 32.2-35.5 pwuq=052) RED CELL DISTRIBUTION WIDTH (BEAKER) (test 15.0 % 11.7-14.4 hfui=071) PLATELET COUNT (BEAKER) (test bxjr=008) 182 K/CU MM 150-450 MEAN PLATELET VOLUME (BEAKER) (test fszd=172) 9.6 fL 9.4-12.3 NUCLEATED RED BLOOD CELLS (BEAKER) (test 0 /100 WBC 0-0 kyco=235) (CELLAVISION MANUAL DIFF)2019-06-27 07:43:00 Test Item Value Reference Range Comments NEUTROPHILS - REL (CELLAVISION)(BEAKER) (test 82 % jcgf=5601) LYMPHOCYTES - REL (CELLAVISION)(BEAKER) (test 5 % npot=2452) MONOCYTES - REL (CELLAVISION)(BEAKER) (test 3 % zddd=4014) BANDS - REL (CELLAVISION)(BEAKER) (test 10 % 0-10 idvg=4229) NEUTROPHILS - ABS (CELLAVISION)(BEAKER) (test 13.69 K/ul 1.56-6.13 wzfh=8726) LYMPHOCYTES - ABS (CELLAVISION)(BEAKER) (test 0.84 K/ul 1.18-3.74 dyhx=4710) MONOCYTES - ABS (CELLAVISION)(BEAKER) (test 0.50 K/uL 0.24-0.36 xgaq=3296) BANDS - ABS (CELLAVISION)(BEAKER) (test 1.67 K/uL 0.00-0.80 cboy=3276) TOTAL COUNTED (BEAKER) (test yuyv=5032) 100 RBC MORPHOLOGY (BEAKER) (test xpgt=114) Normal WBC MORPHOLOGY (BEAKER) (test iqga=717) Normal PLT MORPHOLOGY (BEAKER) (test shsu=172) Normal ARTIFACT (CELLAVISION)(BEAKER) (test aoaw=9614) Present PLATELET CONCENTRATION (CELLAVISION)(BEAKER) Adequate (test qcen=8719) Received comment: User comments: Slide comments:POCT-GLUCOSE [id number] 06: 24:00 Test Item Value Reference Range Comments POC-GLUCOSE METER (BEAKER) 161 mg/dL 70-110 TESTED AT [facility] [address] (test kkli=2122) [facility] [address] TROPONIN [id number] 05:49:00 Test Item Value Reference Range Comments TROPONIN I (BEAKER) (test arro=854) 68.65 ng/mL 0.00-0.03 Troponin I (TnI) levels [...] acute neurological disease, and persistent tachyarrhythmia.BASIC METABOLIC [id number] 04:54:00 Test Item Value Reference Range Comments SODIUM (BEAKER) (test 136 meq/L 136-145 yqvp=304) POTASSIUM (BEAKER) (test 4.1 meq/L 3.5-5.1 Specimen slightly hemolyzed kdlz=219) CHLORIDE (BEAKER) (test 105 meq/L 98-107 hdwi=567) CO2 (BEAKER) (test qkqm=508) 21 meq/L 22-29 BLOOD UREA NITROGEN (BEAKER) 42 mg/dL 7-21 (test mrgr=482) CREATININE (BEAKER) (test 2.44 mg/dL 0.57-1.25 Specimen slightly hemolyzed kswy=365) GLUCOSE RANDOM (BEAKER) 165 mg/dL 70-105 (test kgum=779) CALCIUM (BEAKER) (test 8.1 mg/dL 8.4-10.2 qico=118) EGFR (BEAKER) (test INSUFFICIENT CLINICAL DATA TO zktl=9501) CALCULATE ESTIMATED GFR. [id number] 04:52:00 Test Item Value Reference Range Comments MAGNESIUM (BEAKER) (test 1.9 mg/dL 1.6-2.6 Specimen slightly hemolyzed qcuk=219) POCT-GLUCOSE [id number] 00:41:00 Test Item Value Reference Range Comments POC-GLUCOSE METER (BEAKER) 144 mg/dL 70-110 TESTED AT [address] (test czfp=0375) [facility] [address] CBC (HEMOGRAM ONLY)2019-06-26 23:34:00 Test Item Value Reference Range Comments WHITE BLOOD CELL COUNT (BEAKER) (test rkxa=978) 15.9 K/ L 3.5-10.5 RED BLOOD CELL COUNT (BEAKER) (test llbo=766) 4.21 M/ L 3.93-5.22 HEMOGLOBIN (BEAKER) (test xrzq=521) 12.8 GM/DL 11.2-15.7 HEMATOCRIT (BEAKER) (test flby=404) 40.1 % 34.1-44.9 MEAN CORPUSCULAR VOLUME (BEAKER) (test tvbv=380) 95.2 fL 79.4-94.8 MEAN CORPUSCULAR HEMOGLOBIN (BEAKER) (test 30.4 pg 25.6-32.2 drog=655) MEAN CORPUSCULAR HEMOGLOBIN CONC (BEAKER) (test 31.9 GM/DL 32.2-35.5 bdhx=489) RED CELL DISTRIBUTION WIDTH (BEAKER) (test 15.1 % 11.7-14.4 kvkr=505) PLATELET COUNT (BEAKER) (test xcqz=396) 186 K/CU MM 150-450 MEAN PLATELET VOLUME (BEAKER) (test vuwm=307) 9.4 fL 9.4-12.3 NUCLEATED RED BLOOD CELLS (BEAKER) (test 0 /100 WBC 0-0 gqhv=774) POCT-GLUCOSE [id number] 18:37:00 Test Item Value Reference Range Comments POC-GLUCOSE METER (BEAKER) 134 mg/dL 70-110 TESTED AT [address] (test dvit=4353) [facility] [address] RAD, CHEST, 1 VIEW, NON [id number] 13:19:00Reason for exam:->respiratory failure/COPD intubatedFINAL REPORT History: [...] MDReport Verified Date/Time: 06/26/2019 13:19:00 Reading Location: [address] Consult Reading Room CBC W/PLT COUNT & AUTO [id number] 11:40:00 Test Item Value Reference Range Comments WHITE BLOOD CELL COUNT (BEAKER) (test ajkg=611) 17.0 K/ L 3.5-10.5 RED BLOOD CELL COUNT (BEAKER) (test paxs=535) 4.44 M/ L 3.93-5.22 HEMOGLOBIN (BEAKER) (test yzjy=698) 13.4 GM/DL 11.2-15.7 HEMATOCRIT (BEAKER) (test ftkz=972) 42.0 % 34.1-44.9 MEAN CORPUSCULAR VOLUME (BEAKER) (test toly=465) 94.6 fL 79.4-94.8 MEAN CORPUSCULAR HEMOGLOBIN (BEAKER) (test 30.2 pg 25.6-32.2 gxrw=258) MEAN CORPUSCULAR HEMOGLOBIN CONC (BEAKER) (test 31.9 GM/DL 32.2-35.5 lqlc=615) RED CELL DISTRIBUTION WIDTH (BEAKER) (test 15.0 % 11.7-14.4 pfwt=206) PLATELET COUNT (BEAKER) (test yrjf=982) 209 K/CU MM 150-450 MEAN PLATELET VOLUME (BEAKER) (test cunw=538) 9.7 fL 9.4-12.3 NUCLEATED RED BLOOD CELLS (BEAKER) (test 0 /100 WBC 0-0 emdu=439) NEUTROPHILS RELATIVE PERCENT (BEAKER) (test 92 % lrlg=019) LYMPHOCYTES RELATIVE PERCENT (BEAKER) (test 3 % bznw=569) MONOCYTES RELATIVE PERCENT (BEAKER) (test 4 % tgsy=406) EOSINOPHILS RELATIVE PERCENT (BEAKER) (test 0 % qxsp=491) BASOPHILS RELATIVE PERCENT (BEAKER) (test 0 % xtqa=159) NEUTROPHILS ABSOLUTE COUNT (BEAKER) (test 15.68 K/ L 1.56-6.13 btic=229) LYMPHOCYTES ABSOLUTE COUNT (BEAKER) (test 0.52 K/ L 1.18-3.74 mxjl=287) MONOCYTES ABSOLUTE COUNT (BEAKER) (test 0.71 K/ L 0.24-0.36 lwpe=820) EOSINOPHILS ABSOLUTE COUNT (BEAKER) (test 0.00 K/ L 0.04-0.36 ream=492) BASOPHILS ABSOLUTE COUNT (BEAKER) (test 0.03 K/ L 0.01-0.08 fkow=709) IMMATURE GRANULOCYTES-RELATIVE PERCENT (BEAKER) 1 % 0-1 (test svqk=4313) POCT-GLUCOSE [id number] 11:29:00 Test Item Value Reference Range Comments POC-GLUCOSE METER (BEAKER) 241 mg/dL 70-110 TESTED AT [facility] [address] (test ynwl=1537) [place] [address] CBC W/PLT COUNT & AUTO [id number] 10:15:00 Test Item Value Reference Range Comments WHITE BLOOD CELL COUNT (BEAKER) (test rquh=357) 17.5 K/ L 3.5-10.5 RED BLOOD CELL COUNT (BEAKER) (test fxur=878) 4.52 M/ L 3.93-5.22 HEMOGLOBIN (BEAKER) (test ginm=057) 13.7 GM/DL 11.2-15.7 HEMATOCRIT (BEAKER) (test avcf=655) 44.1 % 34.1-44.9 MEAN CORPUSCULAR VOLUME (BEAKER) (test msez=146) 97.6 fL 79.4-94.8 MEAN CORPUSCULAR HEMOGLOBIN (BEAKER) (test 30.3 pg 25.6-32.2 bjcv=734) MEAN CORPUSCULAR HEMOGLOBIN CONC (BEAKER) (test 31.1 GM/DL 32.2-35.5 nmth=041) RED CELL DISTRIBUTION WIDTH (BEAKER) (test 14.9 % 11.7-14.4 zrhc=742) PLATELET COUNT (BEAKER) (test rjaj=731) 219 K/CU MM 150-450 MEAN PLATELET VOLUME (BEAKER) (test ypvl=931) 9.6 fL 9.4-12.3 NUCLEATED RED BLOOD CELLS (BEAKER) (test 0 /100 WBC 0-0 dykb=670) (CELLAVISION MANUAL DIFF)2019-06-26 10:15:00 Test Item Value Reference Range Comments NEUTROPHILS - REL (CELLAVISION)(BEAKER) (test 86 % bxnk=7041) LYMPHOCYTES - REL (CELLAVISION)(BEAKER) (test 2 % wuxg=6640) MONOCYTES - REL (CELLAVISION)(BEAKER) (test 2 % dqxh=0243) METAMYELOCYTES - REL (CELLAVISION)(BEAKER) (test 1 % 0-0 webx=4749) BANDS - REL (CELLAVISION)(BEAKER) (test 9 % 0-10 mxao=0707) NEUTROPHILS - ABS (CELLAVISION)(BEAKER) (test 15.05 K/ul 1.56-6.13 lopb=0179) LYMPHOCYTES - ABS (CELLAVISION)(BEAKER) (test 0.35 K/ul 1.18-3.74 atej=9240) MONOCYTES - ABS (CELLAVISION)(BEAKER) (test 0.35 K/uL 0.24-0.36 hijp=3475) METAMYELOCYTES - ABS (CELLAVISION)(BEAKER) (test 0.18 K/uL 0.00-0.00 zsve=7781) BANDS - ABS (CELLAVISION)(BEAKER) (test 1.58 K/uL 0.00-0.80 marc=2149) TOTAL COUNTED (BEAKER) (test yksx=9072) 100 WBC MORPHOLOGY (BEAKER) (test etef=931) Normal PLT MORPHOLOGY (BEAKER) (test bnly=727) Normal HYPOCHROMIA (BEAKER) (test yqlm=019) 1+ few ANISOCYTOSIS (BEAKER) (test fmnj=773) 1+ few MACROCYTES (BEAKER) (test zkci=046) 1+ few POIKILOCYTES (BEAKER) (test sbmm=367) 1+ few JOSSY CELLS (BEAKER) (test udbd=114) 1+ few ARTIFACT (CELLAVISION)(BEAKER) (test rhms=0285) Present PLATELET CONCENTRATION (CELLAVISION)(BEAKER) Adequate (test wkeh=9309) Received comment: User comments: Slide comments:HEMOGLOBIN [id number] 08:52: 00 Test Item Value Reference Range Comments HEMOGLOBIN A1C (BEAKER) (test gbef=069) 6.9 % 4.3-6.1 RAD, ABDOMEN/KUB, 1 VIEW [id number] 08:28:00Reason for exam:->ileusShould this be performed at [...] MDReport Verified Date/Time: 06/26/2019 08:28:56 Reading Location: [facility] C013V Neuro Reading Room POCT-GLUCOSE [id number] 07:49:00 Test Item Value Reference Range Comments POC-GLUCOSE METER (BEAKER) 275 mg/dL 70-110 TESTED AT [facility] [address] (test kakm=2003) [facility] [address] TROPONIN [id number] 06:57:00 Test Item Value Reference Range Comments TROPONIN I (BEAKER) (test fckn=166) 432.80 ng/mL 0.00-0.03 Troponin I (TnI) levels [...] acute neurological disease, and persistent tachyarrhythmia.BLOOD GAS, [id number] 06:30:00 Test Item Value Reference Range Comments PH ARTERIAL (BEAKER) (test tyig=334) 7.31 7.35-7.45 PCO2 ARTERIAL (BEAKER) (test gasg=486) 42 mmHg 35-45 PO2 ARTERIAL (BEAKER) (test rtqd=317) 90 mmHg 80-90 O2 SATURATION ARTERIAL (BEAKER) (test dtth=973) 96.5 % 96.0-97.0 HCO3 ARTERIAL (BEAKER) (test nftw=495) 21 mmol/L 21-29 BASE EXCESS ARTERIAL (BEAKER) (test exrr=275) -5.5 mmol/L -2.0-3.0 PATIENT TEMPERATURE (BEAKER) (test vkmq=5757) 36.4 C FIO2 (BEAKER) (test spye=5881) 60.0 % B-TYPE NATRIURETIC FACTOR (BNP)2019-06-26 06:22:00 Test Item Value Reference Range Comments B-TYPE NATRIURETIC PEPTIDE (BEAKER) (test 1525 pg/mL 0-100 uhhc=455) [id number] 06:16:00 Test Item Value Reference Range Comments MAGNESIUM (BEAKER) (test yvwb=397) 1.8 mg/dL 1.6-2.6 LIPID [id number] 06:16:00 Test Item Value Reference Range Comments TRIGLYCERIDES (BEAKER) (test zmrd=111) 61 mg/dL CHOLESTEROL (BEAKER) (test bsns=827) 179 mg/dL HDL CHOLESTEROL (BEAKER) (test zvqm=057) 34 mg/dL LDL CHOLESTEROL CALCULATED (BEAKER) (test 133 mg/dL owsh=639) Triglyceride Reference Range: Low Risk <150 Borderline 150- 199 High Risk 200-499 Very High Risk >=500Cholesterol Reference Range: Low Risk <200 Borderline 200-239 High Risk > 240HDL Cholesterol Reference Range: Low Risk >=60 High Risk <40LDL Cholesterol Reference Range: Optimal <100 Near Optimal 100-129 Borderline 130-159 High 160-189 Very High >=190BASIC METABOLIC [id number] 06:16:00 Test Item Value Reference Range Comments SODIUM (BEAKER) (test 132 meq/L 136-145 sach=498) POTASSIUM (BEAKER) (test 4.3 meq/L 3.5-5.1 wsfg=504) CHLORIDE (BEAKER) (test 103 meq/L 98-107 laal=038) CO2 (BEAKER) (test schy=359) 20 meq/L 22-29 BLOOD UREA NITROGEN (BEAKER) 28 mg/dL 7-21 (test bcfy=570) CREATININE (BEAKER) (test 2.17 mg/dL 0.57-1.25 zmxk=752) GLUCOSE RANDOM (BEAKER) 274 mg/dL 70-105 (test mzgk=445) CALCIUM (BEAKER) (test 7.6 mg/dL 8.4-10.2 bxox=461) EGFR (BEAKER) (test INSUFFICIENT CLINICAL DATA TO zkwu=9639) CALCULATE ESTIMATED GFR. [id number] 04:05:00 Test Item Value Reference Range Comments ACTIVATED CLOTTING TIME 301 sec Reference Range: 74-137 (BEAKER) (test ufxs=534) seconds, Baseline/TESTED AT [facility] [address] [facility] [address] [id number] 03:52:00 Test Item Value Reference Range Comments ACTIVATED CLOTTING TIME 290 sec Reference Range: 74-137 (BEAKER) (test slxs=081) seconds, Baseline/TESTED AT [place] [address] [id number] 03:44:00 Test Item Value Reference Range Comments ACTIVATED CLOTTING TIME 246 sec Reference Range: 74-137 (BEAKER) (test jdox=776) seconds, Baseline/TESTED AT [place] [address] [id number] 03:44:00 Test Item Value Reference Range Comments ACTIVATED CLOTTING TIME 202 sec Reference Range: 74-137 (BEAKER) (test toxm=395) seconds, Baseline/TESTED AT [place] [address]
[2019-08-19 10:36] VITALS: BMI 23.3
[2019-08-19 14:56] LABS: Hematocrit 31.7 % (36.0-45.0)
[2019-08-19 14:58] VITALS: BP 141/50; TEMP 98.1; O2SAT 98
== END ==
LOC: DS 10:00
PROVIDERS: ATTEND Internal Medicine
DX: N18.6 End stage renal disease (principal); D63.1 Anemia in chronic kidney disease
CPT/HCPCS: 36415; 86900; 86850; 86901; 85018; 85014; 36430; J1940; P9016; J7030

== ENCOUNTER 2019-09-13 13:52 | Inpatient (IN) | payer OTHER ==
--- OUTSIDE RECORDS SUMMARY | 2019-09-13 14:00 | XMS REPORT ---
:1950 [facility] [address] [place] [address] Care Team Providers Name Role Phone CHRISTIANO PINEDAMARCELO Coe Unavailable Unavailable Problems This patient has no known problems. Allergies, Adverse Reactions, Alerts This patient has no known allergies or adverse reactions. Medications This patient has no known medications. Results Test Description Test Time Test Comments Text Results Atomic Results Result Comments POCT-GLUCOSE METER 2019-07-12 17:46:00 Test Item Value Reference Range Comments POC-GLUCOSE METER (BEAKER) (test 166 mg/dL 70-110 TESTED AT [address] vwef=9379) [place] [id number] POCT-GLUCOSE [id number] 12:21:00 Test Item Value Reference Range Comments POC-GLUCOSE METER (BEAKER) 208 mg/dL 70-110 TESTED AT [address] (test tuxk=3891) [place] [id number] POCT-GLUCOSE [id number] 08:37:00 Test Item Value Reference Range Comments POC-GLUCOSE METER (BEAKER) 123 mg/dL 70-110 TESTED AT [address] (test vwhj=4736) [facility] [address] BASIC METABOLIC [id number] 07:25:00 Test Item Value Reference Range Comments SODIUM (BEAKER) (test 133 meq/L 136-145 fyuf=689) POTASSIUM (BEAKER) (test 3.7 meq/L 3.5-5.1 nfsg=151) CHLORIDE (BEAKER) (test 101 meq/L 98-107 paih=496) CO2 (BEAKER) (test 21 meq/L 22-29 gzst=274) BLOOD UREA NITROGEN 65 mg/dL 7-21 (BEAKER) (test frbe=787) CREATININE (BEAKER) (test 3.63 mg/dL 0.57-1.25 xhrh=231) GLUCOSE RANDOM (BEAKER) 107 mg/dL 70-105 (test wtvs=621) CALCIUM (BEAKER) (test 8.2 mg/dL 8.4-10.2 xfwe=017) EGFR (BEAKER) (test 12 mL/min/1.73 sq m ESTIMATED GFR IS NOT qiop=2736) ACCURATE CREATININE CLEARANCE IN PREDICTING GLOMERULAR FILTRATION RATE. ESTIMATED GFR IS NOT APPLICABLE FOR DIALYSIS PATIENTS. [id number] 07:23:00 Test Item Value Reference Range Comments PHOSPHORUS (BEAKER) (test aosh=123) 4.0 mg/dL 2.3-4.7 [id number] 07:23:00 Test Item Value Reference Range Comments MAGNESIUM (BEAKER) (test dzvs=178) 2.1 mg/dL 1.6-2.6 CALCIUM, [id number] 06:57:00 Test Item Value Reference Range Comments CALCIUM IONIZED (BEAKER) (test jxaa=849) 1.06 mmol/L 1.12-1.27 PH, BLOOD (BEAKER) (test zxau=0686) 7.41 B-TYPE NATRIURETIC FACTOR (BNP)2019-07-12 06:27:00 Test Item Value Reference Range Comments B-TYPE NATRIURETIC PEPTIDE (BEAKER) (test 1549 pg/mL 0-100 dfbn=183) CBC W/PLT COUNT & AUTO [id number] 05:46:00 Test Item Value Reference Range Comments WHITE BLOOD CELL COUNT (BEAKER) (test ypcf=902) 11.2 K/ L 3.5-10.5 RED BLOOD CELL COUNT (BEAKER) (test ukjo=689) 2.72 M/ L 3.93-5.22 HEMOGLOBIN (BEAKER) (test pavx=879) 8.1 GM/DL 11.2-15.7 HEMATOCRIT (BEAKER) (test nwft=859) 25.6 % 34.1-44.9 MEAN CORPUSCULAR VOLUME (BEAKER) (test mqpf=505) 94.1 fL 79.4-94.8 MEAN CORPUSCULAR HEMOGLOBIN (BEAKER) (test 29.8 pg 25.6-32.2 mjbi=548) MEAN CORPUSCULAR HEMOGLOBIN CONC (BEAKER) (test 31.6 GM/DL 32.2-35.5 iqco=399) RED CELL DISTRIBUTION WIDTH (BEAKER) (test 15.2 % 11.7-14.4 xoxf=503) PLATELET COUNT (BEAKER) (test joyf=853) 226 K/CU MM 150-450 MEAN PLATELET VOLUME (BEAKER) (test udjb=289) 12.0 fL 9.4-12.3 NUCLEATED RED BLOOD CELLS (BEAKER) (test 0 /100 WBC 0-0 elyb=058) NEUTROPHILS RELATIVE PERCENT (BEAKER) (test 81 % nopb=575) LYMPHOCYTES RELATIVE PERCENT (BEAKER) (test 9 % psqc=125) MONOCYTES RELATIVE PERCENT (BEAKER) (test 5 % sjjg=155) EOSINOPHILS RELATIVE PERCENT (BEAKER) (test 2 % ckzn=617) BASOPHILS RELATIVE PERCENT (BEAKER) (test 0 % ntwu=465) NEUTROPHILS ABSOLUTE COUNT (BEAKER) (test 9.11 K/ L 1.56-6.13 tnpr=600) LYMPHOCYTES ABSOLUTE COUNT (BEAKER) (test 1.06 K/ L 1.18-3.74 wwwe=099) MONOCYTES ABSOLUTE COUNT (BEAKER) (test 0.61 K/ L 0.24-0.36 xfmp=918) EOSINOPHILS ABSOLUTE COUNT (BEAKER) (test 0.27 K/ L 0.04-0.36 ucos=523) BASOPHILS ABSOLUTE COUNT (BEAKER) (test 0.04 K/ L 0.01-0.08 noys=252) IMMATURE GRANULOCYTES-RELATIVE PERCENT (BEAKER) 1 % 0-1 (test pbfw=0865) POCT-GLUCOSE [id number] 23:24:00 Test Item Value Reference Range Comments POC-GLUCOSE METER (BEAKER) 115 mg/dL 70-110 TESTED AT [address] (test ykta=4066) [place] [id number] POCT-GLUCOSE [id number] 17:28:00 Test Item Value Reference Range Comments POC-GLUCOSE METER (BEAKER) 233 mg/dL 70-110 TESTED AT [address] (test jvfk=9799) [place] [id number] POCT-GLUCOSE [id number] 08:05:00 Test Item Value Reference Range Comments POC-GLUCOSE METER (BEAKER) 207 mg/dL 70-110 TESTED AT [address] (test gjur=9218) [place] [address] BASIC METABOLIC [id number] 05:43:00 Test Item Value Reference Range Comments SODIUM (BEAKER) (test 137 meq/L 136-145 gshi=517) POTASSIUM (BEAKER) (test 4.0 meq/L 3.5-5.1 upug=365) CHLORIDE (BEAKER) (test 103 meq/L 98-107 afyz=051) CO2 (BEAKER) (test 24 meq/L 22-29 ecmq=466) BLOOD UREA NITROGEN 69 mg/dL 7-21 (BEAKER) (test hjsm=657) CREATININE (BEAKER) (test 3.71 mg/dL 0.57-1.25 utqi=694) GLUCOSE RANDOM (BEAKER) 111 mg/dL 70-105 (test affu=557) CALCIUM (BEAKER) (test 8.4 mg/dL 8.4-10.2 quye=507) EGFR (BEAKER) (test 12 mL/min/1.73 sq m ESTIMATED GFR IS NOT fjye=2308) ACCURATE CREATININE CLEARANCE IN PREDICTING GLOMERULAR FILTRATION RATE. ESTIMATED GFR IS NOT APPLICABLE FOR DIALYSIS PATIENTS. CALCIUM, [id number] 05:36:00 Test Item Value Reference Range Comments CALCIUM IONIZED (BEAKER) (test gfdz=722) 1.03 mmol/L 1.12-1.27 PH, BLOOD (BEAKER) (test fmck=6353) 7.43 URIC [id number] 05:32:00 Test Item Value Reference Range Comments URIC ACID (BEAKER) (test zujj=180) 9.9 mg/dL 2.6-7.2 [id number] 05:32:00 Test Item Value Reference Range Comments MAGNESIUM (BEAKER) (test nqqv=433) 2.1 mg/dL 1.6-2.6 [id number] 05:32:00 Test Item Value Reference Range Comments PHOSPHORUS (BEAKER) (test fbmb=824) 4.7 mg/dL 2.3-4.7 B-TYPE NATRIURETIC FACTOR (BNP)2019-07-11 05:29:00 Test Item Value Reference Range Comments B-TYPE NATRIURETIC PEPTIDE (BEAKER) (test 1730 pg/mL 0-100 jboh=507) CBC W/PLT COUNT & AUTO [id number] 05:24:00 Test Item Value Reference Range Comments WHITE BLOOD CELL COUNT (BEAKER) (test dpny=056) 12.5 K/ L 3.5-10.5 RED BLOOD CELL COUNT (BEAKER) (test cemv=511) 2.83 M/ L 3.93-5.22 HEMOGLOBIN (BEAKER) (test qaiy=954) 8.5 GM/DL 11.2-15.7 HEMATOCRIT (BEAKER) (test yiao=749) 27.2 % 34.1-44.9 MEAN CORPUSCULAR VOLUME (BEAKER) (test tqlf=184) 96.1 fL 79.4-94.8 MEAN CORPUSCULAR HEMOGLOBIN (BEAKER) (test 30.0 pg 25.6-32.2 mjbs=196) MEAN CORPUSCULAR HEMOGLOBIN CONC (BEAKER) (test 31.3 GM/DL 32.2-35.5 gyfl=095) RED CELL DISTRIBUTION WIDTH (BEAKER) (test 15.1 % 11.7-14.4 zqcj=447) PLATELET COUNT (BEAKER) (test gbhi=834) 213 K/CU MM 150-450 MEAN PLATELET VOLUME (BEAKER) (test cfml=848) 11.8 fL 9.4-12.3 NUCLEATED RED BLOOD CELLS (BEAKER) (test 0 /100 WBC 0-0 czik=077) NEUTROPHILS RELATIVE PERCENT (BEAKER) (test 85 % jvar=492) LYMPHOCYTES RELATIVE PERCENT (BEAKER) (test 8 % gypt=976) MONOCYTES RELATIVE PERCENT (BEAKER) (test 5 % rxgi=994) EOSINOPHILS RELATIVE PERCENT (BEAKER) (test 1 % yizq=631) BASOPHILS RELATIVE PERCENT (BEAKER) (test 0 % dwuf=702) NEUTROPHILS ABSOLUTE COUNT (BEAKER) (test 10.56 K/ L 1.56-6.13 zwlj=321) LYMPHOCYTES ABSOLUTE COUNT (BEAKER) (test 0.96 K/ L 1.18-3.74 fpwl=534) MONOCYTES ABSOLUTE COUNT (BEAKER) (test 0.60 K/ L 0.24-0.36 alnt=548) EOSINOPHILS ABSOLUTE COUNT (BEAKER) (test 0.18 K/ L 0.04-0.36 kdnh=373) BASOPHILS ABSOLUTE COUNT (BEAKER) (test 0.05 K/ L 0.01-0.08 wdga=157) IMMATURE GRANULOCYTES-RELATIVE PERCENT (BEAKER) 1 % 0-1 (test hkzl=6871) POCT-GLUCOSE [id number] 21:48:00 Test Item Value Reference Range Comments POC-GLUCOSE METER (BEAKER) 130 mg/dL 70-110 TESTED AT [address] (test mcnh=3816) [facility] [address] POCT-GLUCOSE [id number] 17:38:00 Test Item Value Reference Range Comments POC-GLUCOSE METER (BEAKER) 240 mg/dL 70-110 TESTED AT [address] (test dzlx=8869) [facility] [address] MR, BRAIN, WITHOUT [id number] 13:28:00Reason for exam:->word finding difficultyFINAL REPORT MR, [...] Duggan Verified Date/Time: 07/10/2019 13:28:15 Reading Location: [address] Neuro Reading Room POCT-GLUCOSE [id number] 12:10:00 Test Item Value Reference Range Comments POC-GLUCOSE METER (BEAKER) 261 mg/dL 70-110 TESTED AT [address] (test fxcc=6018) [facility] [address] POCT-GLUCOSE [id number] 08:01:00 Test Item Value Reference Range Comments POC-GLUCOSE METER (BEAKER) 119 mg/dL 70-110 TESTED AT [address] (test tarc=9095) [facility] [address] BASIC METABOLIC [id number] 06:22:00 Test Item Value Reference Range Comments SODIUM (BEAKER) (test 135 meq/L 136-145 jylm=816) POTASSIUM (BEAKER) (test 3.6 meq/L 3.5-5.1 woeo=348) CHLORIDE (BEAKER) (test 103 meq/L 98-107 aagp=475) CO2 (BEAKER) (test 21 meq/L 22-29 jywk=653) BLOOD UREA NITROGEN 71 mg/dL 7-21 (BEAKER) (test qbqt=822) CREATININE (BEAKER) (test 3.62 mg/dL 0.57-1.25 jmvt=182) GLUCOSE RANDOM (BEAKER) 102 mg/dL 70-105 (test ojxr=222) CALCIUM (BEAKER) (test 8.2 mg/dL 8.4-10.2 fkxj=792) EGFR (BEAKER) (test 12 mL/min/1.73 sq m ESTIMATED GFR IS NOT mcmt=8028) ACCURATE CREATININE CLEARANCE IN PREDICTING GLOMERULAR FILTRATION RATE. ESTIMATED GFR IS NOT APPLICABLE FOR DIALYSIS PATIENTS. [id number] 06:21:00 Test Item Value Reference Range Comments MAGNESIUM (BEAKER) (test kswz=744) 2.0 mg/dL 1.6-2.6 CBC W/PLT COUNT & AUTO [id number] 06:10:00 Test Item Value Reference Range Comments WHITE BLOOD CELL COUNT (BEAKER) (test izni=066) 13.1 K/ L 3.5-10.5 RED BLOOD CELL COUNT (BEAKER) (test lpew=812) 2.70 M/ L 3.93-5.22 HEMOGLOBIN (BEAKER) (test myin=555) 8.2 GM/DL 11.2-15.7 HEMATOCRIT (BEAKER) (test fqms=551) 25.4 % 34.1-44.9 MEAN CORPUSCULAR VOLUME (BEAKER) (test obxi=448) 94.1 fL 79.4-94.8 MEAN CORPUSCULAR HEMOGLOBIN (BEAKER) (test 30.4 pg 25.6-32.2 zxim=247) MEAN CORPUSCULAR HEMOGLOBIN CONC (BEAKER) (test 32.3 GM/DL 32.2-35.5 kdtz=646) RED CELL DISTRIBUTION WIDTH (BEAKER) (test 14.9 % 11.7-14.4 acdm=857) PLATELET COUNT (BEAKER) (test bvrz=234) 231 K/CU MM 150-450 MEAN PLATELET VOLUME (BEAKER) (test duak=576) 12.2 fL 9.4-12.3 NUCLEATED RED BLOOD CELLS (BEAKER) (test 0 /100 WBC 0-0 btjo=089) NEUTROPHILS RELATIVE PERCENT (BEAKER) (test 80 % ukbk=143) LYMPHOCYTES RELATIVE PERCENT (BEAKER) (test 10 % suic=201) MONOCYTES RELATIVE PERCENT (BEAKER) (test 6 % kmgx=797) EOSINOPHILS RELATIVE PERCENT (BEAKER) (test 2 % kexa=514) BASOPHILS RELATIVE PERCENT (BEAKER) (test 1 % snyv=041) NEUTROPHILS ABSOLUTE COUNT (BEAKER) (test 10.50 K/ L 1.56-6.13 reas=443) LYMPHOCYTES ABSOLUTE COUNT (BEAKER) (test 1.32 K/ L 1.18-3.74 vcyl=998) MONOCYTES ABSOLUTE COUNT (BEAKER) (test 0.72 K/ L 0.24-0.36 isvf=572) EOSINOPHILS ABSOLUTE COUNT (BEAKER) (test 0.24 K/ L 0.04-0.36 vrtv=375) BASOPHILS ABSOLUTE COUNT (BEAKER) (test 0.06 K/ L 0.01-0.08 foin=426) IMMATURE GRANULOCYTES-RELATIVE PERCENT (BEAKER) 2 % 0-1 (test hrvm=0194) RAD, CHEST, 1 VIEW, NON [id number] 23:46:00Reason for exam:->increased coughShould this be performed [...] contours. Additional findings: None. Signed: Erica Hou MDReport Verified Date/ Time: 07/09/2019 23:46:51 POCT-GLUCOSE [id number] 21:27:00 Test Item Value Reference Range Comments POC-GLUCOSE METER (BEAKER) 168 mg/dL 70-110 TESTED AT [address] (test fymv=9724) [facility] [address] POCT-GLUCOSE [id number] 17:26:00 Test Item Value Reference Range Comments POC-GLUCOSE METER (BEAKER) 263 mg/dL 70-110 TESTED AT [address] (test upxy=2287) [facility] [address] POCT-GLUCOSE [id number] 12:02:00 Test Item Value Reference Range Comments POC-GLUCOSE METER (BEAKER) 228 mg/dL 70-110 TESTED AT [address] (test habf=5211) [facility] [address] POCT-GLUCOSE [id number] 08:08:00 Test Item Value Reference Range Comments POC-GLUCOSE METER (BEAKER) 134 mg/dL 70-110 TESTED AT [address] (test iqlf=7431) [facility] [address] CALCIUM, [id number] 08:03:00 Test Item Value Reference Range Comments CALCIUM IONIZED (BEAKER) (test hsbz=469) 0.98 mmol/L 1.12-1.27 PH, BLOOD (BEAKER) (test rftf=7706) 7.50 COMPREHENSIVE METABOLIC [id number] 07:11:00 Test Item Value Reference Range Comments TOTAL PROTEIN (BEAKER) 5.6 gm/dL 6.0-8.3 (test vslh=070) ALBUMIN (BEAKER) (test 2.7 g/dL 3.5-5.0 alxf=8857) ALKALINE PHOSPHATASE 63 U/L 40-150 (BEAKER) (test vbjb=016) BILIRUBIN TOTAL (BEAKER) 0.4 mg/dL 0.2-1.2 (test cmvi=200) SODIUM (BEAKER) (test 138 meq/L 136-145 dprc=786) POTASSIUM (BEAKER) (test 3.6 meq/L 3.5-5.1 harg=915) CHLORIDE (BEAKER) (test 103 meq/L 98-107 sedo=127) CO2 (BEAKER) (test 23 meq/L 22-29 wlvo=215) BLOOD UREA NITROGEN 73 mg/dL 7-21 (BEAKER) (test xhbj=060) CREATININE (BEAKER) (test 3.45 mg/dL 0.57-1.25 jzrf=847) GLUCOSE RANDOM (BEAKER) 126 mg/dL 70-105 (test zefd=326) CALCIUM (BEAKER) (test 8.3 mg/dL 8.4-10.2 pvfw=109) AST (SGOT) (BEAKER) (test 26 U/L 5-34 aogk=898) ALT (SGPT) (BEAKER) (test 15 U/L 6-55 zhaj=523) EGFR (BEAKER) (test 13 mL/min/1.73 sq m ESTIMATED GFR IS NOT uomr=1115) ACCURATE CREATININE CLEARANCE IN PREDICTING GLOMERULAR FILTRATION RATE. ESTIMATED GFR IS NOT APPLICABLE FOR DIALYSIS PATIENTS. [id number] 07:00:00 Test Item Value Reference Range Comments PHOSPHORUS (BEAKER) (test omhg=913) 3.8 mg/dL 2.3-4.7 [id number] 07:00:00 Test Item Value Reference Range Comments MAGNESIUM (BEAKER) (test hqrw=434) 2.1 mg/dL 1.6-2.6 CBC W/PLT COUNT & AUTO [id number] 06:33:00 Test Item Value Reference Range Comments WHITE BLOOD CELL COUNT (BEAKER) (test hqjo=683) 14.4 K/ L 3.5-10.5 RED BLOOD CELL COUNT (BEAKER) (test nbgz=262) 2.84 M/ L 3.93-5.22 HEMOGLOBIN (BEAKER) (test cguv=132) 8.5 GM/DL 11.2-15.7 HEMATOCRIT (BEAKER) (test fmdk=582) 26.2 % 34.1-44.9 MEAN CORPUSCULAR VOLUME (BEAKER) (test ghrt=800) 92.3 fL 79.4-94.8 MEAN CORPUSCULAR HEMOGLOBIN (BEAKER) (test 29.9 pg 25.6-32.2 fwiw=222) MEAN CORPUSCULAR HEMOGLOBIN CONC (BEAKER) (test 32.4 GM/DL 32.2-35.5 gvio=437) RED CELL DISTRIBUTION WIDTH (BEAKER) (test 14.7 % 11.7-14.4 bugh=553) PLATELET COUNT (BEAKER) (test ecbf=407) 243 K/CU MM 150-450 MEAN PLATELET VOLUME (BEAKER) (test qgng=845) 12.6 fL 9.4-12.3 NUCLEATED RED BLOOD CELLS (BEAKER) (test 0 /100 WBC 0-0 yswz=215) NEUTROPHILS RELATIVE PERCENT (BEAKER) (test 82 % hqic=213) LYMPHOCYTES RELATIVE PERCENT (BEAKER) (test 8 % rcdj=167) MONOCYTES RELATIVE PERCENT (BEAKER) (test 7 % ldcs=619) EOSINOPHILS RELATIVE PERCENT (BEAKER) (test 2 % uvkz=152) BASOPHILS RELATIVE PERCENT (BEAKER) (test 0 % znsq=464) NEUTROPHILS ABSOLUTE COUNT (BEAKER) (test 11.77 K/ L 1.56-6.13 vaky=924) LYMPHOCYTES ABSOLUTE COUNT (BEAKER) (test 1.08 K/ L 1.18-3.74 mjql=882) MONOCYTES ABSOLUTE COUNT (BEAKER) (test 0.98 K/ L 0.24-0.36 aull=239) EOSINOPHILS ABSOLUTE COUNT (BEAKER) (test 0.31 K/ L 0.04-0.36 jvdh=015) BASOPHILS ABSOLUTE COUNT (BEAKER) (test 0.04 K/ L 0.01-0.08 qfix=044) IMMATURE GRANULOCYTES-RELATIVE PERCENT (BEAKER) 2 % 0-1 (test zntv=5899) POCT-GLUCOSE [id number] 21:30:00 Test Item Value Reference Range Comments POC-GLUCOSE METER (BEAKER) 196 mg/dL 70-110 TESTED AT [address] (test ptih=0215) [place] [id number] POCT-GLUCOSE [id number] 17:34:00 Test Item Value Reference Range Comments POC-GLUCOSE METER (BEAKER) 234 mg/dL 70-110 TESTED AT [address] (test enbf=9878) [place] [id number] DIGOXIN [id number] 12:51:00 Test Item Value Reference Range Comments DIGOXIN LEVEL (BEAKER) (test rtix=900) 0.9 ng/mL 0.8-2.0 POCT-GLUCOSE [id number] 11:52:00 Test Item Value Reference Range Comments POC-GLUCOSE METER (BEAKER) 222 mg/dL 70-110 TESTED AT [address] (test sbdv=8599) [place] [id number] POCT-GLUCOSE [id number] 08:40:00 Test Item Value Reference Range Comments POC-GLUCOSE METER (BEAKER) 120 mg/dL 70-110 TESTED AT [facility] [address] (test chcn=0280) [place] [address] CALCIUM, [id number] 07:04:00 Test Item Value Reference Range Comments CALCIUM IONIZED (BEAKER) (test ryin=673) 1.07 mmol/L 1.12-1.27 PH, BLOOD (BEAKER) (test bspg=6649) 7.42 CBC W/PLT COUNT & AUTO [id number] 06:48:00 Test Item Value Reference Range Comments WHITE BLOOD CELL COUNT (BEAKER) (test qche=403) 14.3 K/ L 3.5-10.5 RED BLOOD CELL COUNT (BEAKER) (test zyxi=268) 3.03 M/ L 3.93-5.22 HEMOGLOBIN (BEAKER) (test fyvy=131) 9.0 GM/DL 11.2-15.7 HEMATOCRIT (BEAKER) (test ymet=741) 28.2 % 34.1-44.9 MEAN CORPUSCULAR VOLUME (BEAKER) (test bjio=861) 93.1 fL 79.4-94.8 MEAN CORPUSCULAR HEMOGLOBIN (BEAKER) (test 29.7 pg 25.6-32.2 wumc=212) MEAN CORPUSCULAR HEMOGLOBIN CONC (BEAKER) (test 31.9 GM/DL 32.2-35.5 gtnw=496) RED CELL DISTRIBUTION WIDTH (BEAKER) (test 14.7 % 11.7-14.4 odqc=444) PLATELET COUNT (BEAKER) (test ufel=834) 257 K/CU MM 150-450 MEAN PLATELET VOLUME (BEAKER) (test kqto=468) 12.2 fL 9.4-12.3 NUCLEATED RED BLOOD CELLS (BEAKER) (test 0 /100 WBC 0-0 fkzp=687) NEUTROPHILS RELATIVE PERCENT (BEAKER) (test 83 % mdrl=183) LYMPHOCYTES RELATIVE PERCENT (BEAKER) (test 7 % ylwk=077) MONOCYTES RELATIVE PERCENT (BEAKER) (test 6 % ptaf=591) EOSINOPHILS RELATIVE PERCENT (BEAKER) (test 2 % thaz=109) BASOPHILS RELATIVE PERCENT (BEAKER) (test 0 % gooe=849) NEUTROPHILS ABSOLUTE COUNT (BEAKER) (test 11.82 K/ L 1.56-6.13 aggg=588) LYMPHOCYTES ABSOLUTE COUNT (BEAKER) (test 1.01 K/ L 1.18-3.74 rivr=428) MONOCYTES ABSOLUTE COUNT (BEAKER) (test 0.89 K/ L 0.24-0.36 usyo=834) EOSINOPHILS ABSOLUTE COUNT (BEAKER) (test 0.26 K/ L 0.04-0.36 agrq=109) BASOPHILS ABSOLUTE COUNT (BEAKER) (test 0.02 K/ L 0.01-0.08 axmr=594) IMMATURE GRANULOCYTES-RELATIVE PERCENT (BEAKER) 2 % 0-1 (test lqci=6602) CREATINE KINASE (CK)2019-07-08 06:22:00 Test Item Value Reference Range Comments CREATINE KINASE TOTAL (BEAKER) (test ismq=820) 18 U/L 29-200 COMPREHENSIVE METABOLIC [id number] 06:22:00 Test Item Value Reference Range Comments TOTAL PROTEIN (BEAKER) 5.6 gm/dL 6.0-8.3 (test dvvc=401) ALBUMIN (BEAKER) (test 2.7 g/dL 3.5-5.0 yajk=5576) ALKALINE PHOSPHATASE 58 U/L 40-150 (BEAKER) (test dtpo=554) BILIRUBIN TOTAL (BEAKER) 0.5 mg/dL 0.2-1.2 (test kbxo=065) SODIUM (BEAKER) (test 136 meq/L 136-145 gtqk=953) POTASSIUM (BEAKER) (test 3.6 meq/L 3.5-5.1 sbep=000) CHLORIDE (BEAKER) (test 103 meq/L 98-107 tdke=408) CO2 (BEAKER) (test 23 meq/L 22-29 ynvg=193) BLOOD UREA NITROGEN 80 mg/dL 7-21 (BEAKER) (test ffkq=906) CREATININE (BEAKER) (test 3.10 mg/dL 0.57-1.25 idfl=798) GLUCOSE RANDOM (BEAKER) 107 mg/dL 70-105 (test mubn=841) CALCIUM (BEAKER) (test 8.3 mg/dL 8.4-10.2 jkid=130) AST (SGOT) (BEAKER) (test 16 U/L 5-34 oapv=872) ALT (SGPT) (BEAKER) (test 10 U/L 6-55 rvjf=772) EGFR (BEAKER) (test 15 mL/min/1.73 sq m ESTIMATED GFR IS NOT pilr=0708) ACCURATE CREATININE CLEARANCE IN PREDICTING GLOMERULAR FILTRATION RATE. ESTIMATED GFR IS NOT APPLICABLE FOR DIALYSIS PATIENTS. [id number] 06:20:00 Test Item Value Reference Range Comments PHOSPHORUS (BEAKER) (test gqid=103) 4.3 mg/dL 2.3-4.7 [id number] 06:20:00 Test Item Value Reference Range Comments MAGNESIUM (BEAKER) (test eyrx=799) 2.2 mg/dL 1.6-2.6 B-TYPE NATRIURETIC FACTOR (BNP)2019-07-08 06:16:00 Test Item Value Reference Range Comments B-TYPE NATRIURETIC PEPTIDE (BEAKER) (test 1115 pg/mL 0-100 ozno=116) POCT-GLUCOSE [id number] 22:01:00 Test Item Value Reference Range Comments POC-GLUCOSE METER (BEAKER) 144 mg/dL 70-110 TESTED AT [facility] [address] [place] [address] (test rhfz=5797) [facility] [address] CREATININE, RANDOM [id number] 21:14:00 Test Item Value Reference Range Comments CREATININE URINE (BEAKER) (test rlxf=445) 63.2 mg/dL Reference Range: No NormalsPROTEIN, RANDOM [id number] 21:14:00 Test Item Value Reference Range Comments PROTEIN, URINE (BEAKER) (test xmhf=2858) 23 mg/dL 0-14 SODIUM, RANDOM [id number] 21:14:00 Test Item Value Reference Range Comments SODIUM URINE (BEAKER) (test okkv=480) 29 meq/L Reference Range: No NormalsEOSINOPHIL SMEAR, [id number] 20:57:00 Test Item Value Reference Range Comments EOSINOPHIL SMEAR, URINE (BEAKER) (test No EOS seen No EOS seen edpl=0982) URINALYSIS W/ [id number] 20:21:00 Test Item Value Reference Range Comments COLOR (BEAKER) (test uxnc=885) Yellow CLARITY (BEAKER) (test pdiq=592) Hazy SPECIFIC GRAVITY UA (BEAKER) (test tbew=903) 1.012 1.001-1.035 PH UA (BEAKER) (test hbnm=502) 5.5 5.0-8.0 PROTEIN UA (BEAKER) (test txqw=133) 20 mg/dL Negative GLUCOSE UA (BEAKER) (test flfp=791) Negative Negative KETONES UA (BEAKER) (test ymdy=755) Negative Negative BILIRUBIN UA (BEAKER) (test sawp=352) Negative Negative BLOOD UA (BEAKER) (test wfyc=951) Trace Negative NITRITE UA (BEAKER) (test iujo=468) Negative Negative LEUKOCYTE ESTERASE UA (BEAKER) (test esxh=983) Large Negative UROBILINOGEN UA (BEAKER) (test asqn=504) 0.2 mg/dL 0.2-1.0 RBC UA (BEAKER) (test lsyb=919) 1 /HPF WBC UA (BEAKER) (test hngd=414) 31 /HPF MUCUS (BEAKER) (test pnfy=7532) Rare SQUAMOUS EPITHELIAL (BEAKER) (test tfyz=770) 2 /HPF YEAST (BEAKER) (test xtev=5591) Few SOURCE(BEAKER) (test ydap=1496) POCT-GLUCOSE [id number] 17:32:00 Test Item Value Reference Range Comments POC-GLUCOSE METER (BEAKER) 168 mg/dL 70-110 TESTED AT [facility] [address] [facility] (test ivrc=8958) [facility] [address] B-TYPE NATRIURETIC FACTOR (BNP)2019-07-07 17:05:00 Test Item Value Reference Range Comments B-TYPE NATRIURETIC PEPTIDE (BEAKER) (test 957 pg/mL 0-100 rddl=061) BASIC METABOLIC [id number] 15:29:00 Test Item Value Reference Range Comments SODIUM (BEAKER) (test 134 meq/L 136-145 aiat=835) POTASSIUM (BEAKER) (test 4.0 meq/L 3.5-5.1 Specimen slightly mkmm=137) hemolyzed CHLORIDE (BEAKER) (test 101 meq/L 98-107 ejkr=563) CO2 (BEAKER) (test 24 meq/L 22-29 ivuz=106) BLOOD UREA NITROGEN 85 mg/dL 7-21 (BEAKER) (test eegi=757) CREATININE (BEAKER) (test 3.17 mg/dL 0.57-1.25 Specimen slightly lnmk=509) hemolyzed GLUCOSE RANDOM (BEAKER) 196 mg/dL 70-105 (test zxqe=256) CALCIUM (BEAKER) (test 8.2 mg/dL 8.4-10.2 kcnb=815) EGFR (BEAKER) (test 14 mL/min/1.73 sq m ESTIMATED GFR IS NOT acvy=7395) ACCURATE CREATININE CLEARANCE IN PREDICTING GLOMERULAR FILTRATION RATE. ESTIMATED GFR IS NOT APPLICABLE FOR DIALYSIS PATIENTS. [id number] 15:20:00 Test Item Value Reference Range Comments MAGNESIUM (BEAKER) (test 2.2 mg/dL 1.6-2.6 Specimen slightly hemolyzed como=754) [id number] 15:20:00 Test Item Value Reference Range Comments PHOSPHORUS (BEAKER) (test 4.4 mg/dL 2.3-4.7 Specimen slightly hemolyzed xxqk=999) CBC W/PLT COUNT & AUTO [id number] 15:13:00 Test Item Value Reference Range Comments WHITE BLOOD CELL COUNT (BEAKER) (test xzyn=277) 12.9 K/ L 3.5-10.5 RED BLOOD CELL COUNT (BEAKER) (test rlvm=802) 3.02 M/ L 3.93-5.22 HEMOGLOBIN (BEAKER) (test jvfd=752) 9.1 GM/DL 11.2-15.7 HEMATOCRIT (BEAKER) (test owfi=630) 28.2 % 34.1-44.9 MEAN CORPUSCULAR VOLUME (BEAKER) (test scgr=540) 93.4 fL 79.4-94.8 MEAN CORPUSCULAR HEMOGLOBIN (BEAKER) (test 30.1 pg 25.6-32.2 vokv=243) MEAN CORPUSCULAR HEMOGLOBIN CONC (BEAKER) (test 32.3 GM/DL 32.2-35.5 wbnq=106) RED CELL DISTRIBUTION WIDTH (BEAKER) (test 14.7 % 11.7-14.4 fikx=117) PLATELET COUNT (BEAKER) (test yywk=917) 250 K/CU MM 150-450 MEAN PLATELET VOLUME (BEAKER) (test ifkg=667) 12.2 fL 9.4-12.3 NUCLEATED RED BLOOD CELLS (BEAKER) (test 0 /100 WBC 0-0 xyoh=025) NEUTROPHILS RELATIVE PERCENT (BEAKER) (test 91 % alyn=356) LYMPHOCYTES RELATIVE PERCENT (BEAKER) (test 4 % fyom=446) MONOCYTES RELATIVE PERCENT (BEAKER) (test 3 % lsdw=088) EOSINOPHILS RELATIVE PERCENT (BEAKER) (test 1 % yvfc=076) BASOPHILS RELATIVE PERCENT (BEAKER) (test 0 % zwkq=566) NEUTROPHILS ABSOLUTE COUNT (BEAKER) (test 11.70 K/ L 1.56-6.13 hvct=351) LYMPHOCYTES ABSOLUTE COUNT (BEAKER) (test 0.51 K/ L 1.18-3.74 pnre=791) MONOCYTES ABSOLUTE COUNT (BEAKER) (test 0.41 K/ L 0.24-0.36 raxc=477) EOSINOPHILS ABSOLUTE COUNT (BEAKER) (test 0.10 K/ L 0.04-0.36 ilck=245) BASOPHILS ABSOLUTE COUNT (BEAKER) (test 0.02 K/ L 0.01-0.08 nmzf=154) IMMATURE GRANULOCYTES-RELATIVE PERCENT (BEAKER) 1 % 0-1 (test azpt=1563) CALCIUM, [id number] 15:11:00 Test Item Value Reference Range Comments CALCIUM IONIZED (BEAKER) (test sslo=397) 1.08 mmol/L 1.12-1.27 PH, BLOOD (BEAKER) (test goia=7232) 7.47 POCT-GLUCOSE [id number] 12:18:00 Test Item Value Reference Range Comments POC-GLUCOSE METER (BEAKER) 213 mg/dL 70-110 TESTED AT [address] (test ivpw=8344) [place] [address] POCT-GLUCOSE [id number] 07:33:00 Test Item Value Reference Range Comments POC-GLUCOSE METER (BEAKER) 145 mg/dL 70-110 TESTED AT [address] (test hutu=4391) [place] [address] POCT-GLUCOSE [id number] 23:40:00 Test Item Value Reference Range Comments POC-GLUCOSE METER (BEAKER) 139 mg/dL 70-110 TESTED AT [address] (test itqf=5810) [place] [address] BASIC METABOLIC [id number] 18:04:00 Test Item Value Reference Range Comments SODIUM (BEAKER) (test 133 meq/L 136-145 uves=443) POTASSIUM (BEAKER) (test 4.2 meq/L 3.5-5.1 glit=414) CHLORIDE (BEAKER) (test 98 meq/L 98-107 vwys=783) CO2 (BEAKER) (test 23 meq/L 22-29 xaeq=346) BLOOD UREA NITROGEN 93 mg/dL 7-21 (BEAKER) (test abyr=097) CREATININE (BEAKER) (test 3.14 mg/dL 0.57-1.25 oxkd=767) GLUCOSE RANDOM (BEAKER) 247 mg/dL 70-105 (test bqns=347) CALCIUM (BEAKER) (test 8.8 mg/dL 8.4-10.2 yzzd=478) EGFR (BEAKER) (test 15 mL/min/1.73 sq m ESTIMATED GFR IS NOT iljp=2067) ACCURATE CREATININE CLEARANCE IN PREDICTING GLOMERULAR FILTRATION RATE. ESTIMATED GFR IS NOT APPLICABLE FOR DIALYSIS PATIENTS. [id number] 18:02:00 Test Item Value Reference Range Comments PHOSPHORUS (BEAKER) (test tepy=609) 4.6 mg/dL 2.3-4.7 [id number] 18:02:00 Test Item Value Reference Range Comments MAGNESIUM (BEAKER) (test cxvz=445) 2.3 mg/dL 1.6-2.6 B-TYPE NATRIURETIC FACTOR (BNP)2019-07-06 18:02:00 Test Item Value Reference Range Comments B-TYPE NATRIURETIC PEPTIDE (BEAKER) (test 570 pg/mL 0-100 ibhc=773) POCT-GLUCOSE [id number] 17:39:00 Test Item Value Reference Range Comments POC-GLUCOSE METER (BEAKER) 212 mg/dL 70-110 TESTED AT [facility] [address] (test qkny=0946) [facility] [address] CALCIUM, [id number] 17:04:00 Test Item Value Reference Range Comments CALCIUM IONIZED (BEAKER) (test mjtd=979) 1.02 mmol/L 1.12-1.27 PH, BLOOD (BEAKER) (test uqhr=8604) 7.39 CBC W/PLT COUNT & AUTO [id number] 16:58:00 Test Item Value Reference Range Comments WHITE BLOOD CELL COUNT (BEAKER) (test yduu=130) 13.4 K/ L 3.5-10.5 RED BLOOD CELL COUNT (BEAKER) (test iayg=813) 3.48 M/ L 3.93-5.22 HEMOGLOBIN (BEAKER) (test cvvn=791) 10.4 GM/DL 11.2-15.7 HEMATOCRIT (BEAKER) (test ojwf=383) 31.6 % 34.1-44.9 MEAN CORPUSCULAR VOLUME (BEAKER) (test ndhe=441) 90.8 fL 79.4-94.8 MEAN CORPUSCULAR HEMOGLOBIN (BEAKER) (test 29.9 pg 25.6-32.2 ytit=645) MEAN CORPUSCULAR HEMOGLOBIN CONC (BEAKER) (test 32.9 GM/DL 32.2-35.5 hufr=076) RED CELL DISTRIBUTION WIDTH (BEAKER) (test 14.6 % 11.7-14.4 kagr=334) PLATELET COUNT (BEAKER) (test ooac=535) 262 K/CU MM 150-450 MEAN PLATELET VOLUME (BEAKER) (test dhyi=435) 12.2 fL 9.4-12.3 NUCLEATED RED BLOOD CELLS (BEAKER) (test 0 /100 WBC 0-0 obvv=074) NEUTROPHILS RELATIVE PERCENT (BEAKER) (test 90 % obrm=803) LYMPHOCYTES RELATIVE PERCENT (BEAKER) (test 4 % szkk=179) MONOCYTES RELATIVE PERCENT (BEAKER) (test 4 % icdg=359) EOSINOPHILS RELATIVE PERCENT (BEAKER) (test 1 % adyt=420) BASOPHILS RELATIVE PERCENT (BEAKER) (test 0 % zgen=320) NEUTROPHILS ABSOLUTE COUNT (BEAKER) (test 11.98 K/ L 1.56-6.13 fxlo=821) LYMPHOCYTES ABSOLUTE COUNT (BEAKER) (test 0.50 K/ L 1.18-3.74 cszl=215) MONOCYTES ABSOLUTE COUNT (BEAKER) (test 0.49 K/ L 0.24-0.36 eyoh=274) EOSINOPHILS ABSOLUTE COUNT (BEAKER) (test 0.11 K/ L 0.04-0.36 tmki=784) BASOPHILS ABSOLUTE COUNT (BEAKER) (test 0.02 K/ L 0.01-0.08 vean=389) IMMATURE GRANULOCYTES-RELATIVE PERCENT (BEAKER) 2 % 0-1 (test wbar=8382) POCT-GLUCOSE [id number] 08:37:00 Test Item Value Reference Range Comments POC-GLUCOSE METER (BEAKER) 153 mg/dL 70-110 TESTED AT [address] (test aizt=2464) [facility] [address] POCT-GLUCOSE [id number] 21:38:00 Test Item Value Reference Range Comments POC-GLUCOSE METER (BEAKER) 156 mg/dL 70-110 TESTED AT [address] (test yonk=3264) [facility] [address] POCT-GLUCOSE [id number] 17:54:00 Test Item Value Reference Range Comments POC-GLUCOSE METER (BEAKER) 233 mg/dL 70-110 TESTED AT [address] (test cqjy=6043) [facility] [address] RAD, CHEST, 2 [id number] 17:50:00Reason for exam:->productive cough, new RLL infiltrate [...] MDReport Verified Date/Time: 07/05/2019 17:50:57 Reading Location: [facility] Reading Room POCT-GLUCOSE [id number] 12:27:00 Test Item Value Reference Range Comments POC-GLUCOSE METER (BEAKER) 299 mg/dL 70-110 TESTED AT [address] (test mhzj=2674) [facility] [address] POCT-GLUCOSE [id number] 08:00:00 Test Item Value Reference Range Comments POC-GLUCOSE METER (BEAKER) 118 mg/dL 70-110 TESTED AT [address] (test zdkq=6028) [facility] [address] [id number] 07:40:00 Test Item Value Reference Range Comments MAGNESIUM (BEAKER) (test cabz=561) 2.3 mg/dL 1.6-2.6 BASIC METABOLIC [id number] 06:40:00 Test Item Value Reference Range Comments SODIUM (BEAKER) (test 135 meq/L 136-145 zqjw=722) POTASSIUM (BEAKER) (test 3.9 meq/L 3.5-5.1 exhq=816) CHLORIDE (BEAKER) (test 99 meq/L 98-107 gglv=868) CO2 (BEAKER) (test 25 meq/L 22-29 wtzt=908) BLOOD UREA NITROGEN 101 mg/dL 7-21 (BEAKER) (test zegx=219) CREATININE (BEAKER) (test 2.77 mg/dL 0.57-1.25 pori=681) GLUCOSE RANDOM (BEAKER) 108 mg/dL 70-105 (test leks=202) CALCIUM (BEAKER) (test 8.9 mg/dL 8.4-10.2 bwat=409) EGFR (BEAKER) (test 17 mL/min/1.73 sq m ESTIMATED GFR IS NOT tleu=3962) ACCURATE CREATININE CLEARANCE IN PREDICTING GLOMERULAR FILTRATION RATE. ESTIMATED GFR IS NOT APPLICABLE FOR DIALYSIS PATIENTS. B-TYPE NATRIURETIC FACTOR (BNP)2019-07-05 05:47:00 Test Item Value Reference Range Comments B-TYPE NATRIURETIC PEPTIDE (BEAKER) (test 414 pg/mL 0-100 cuhq=916) CBC W/PLT COUNT & AUTO [id number] 05:09:00 Test Item Value Reference Range Comments WHITE BLOOD CELL COUNT (BEAKER) (test cxti=808) 14.9 K/ L 3.5-10.5 RED BLOOD CELL COUNT (BEAKER) (test smnr=549) 3.38 M/ L 3.93-5.22 HEMOGLOBIN (BEAKER) (test jtha=523) 10.2 GM/DL 11.2-15.7 HEMATOCRIT (BEAKER) (test tvoo=060) 30.7 % 34.1-44.9 MEAN CORPUSCULAR VOLUME (BEAKER) (test awjj=301) 90.8 fL 79.4-94.8 MEAN CORPUSCULAR HEMOGLOBIN (BEAKER) (test 30.2 pg 25.6-32.2 qwku=884) MEAN CORPUSCULAR HEMOGLOBIN CONC (BEAKER) (test 33.2 GM/DL 32.2-35.5 wpir=047) RED CELL DISTRIBUTION WIDTH (BEAKER) (test 14.6 % 11.7-14.4 aler=543) PLATELET COUNT (BEAKER) (test fxyo=024) 257 K/CU MM 150-450 MEAN PLATELET VOLUME (BEAKER) (test ovdw=546) 12.2 fL 9.4-12.3 NUCLEATED RED BLOOD CELLS (BEAKER) (test 0 /100 WBC 0-0 ddgn=037) NEUTROPHILS RELATIVE PERCENT (BEAKER) (test 84 % ttzu=397) LYMPHOCYTES RELATIVE PERCENT (BEAKER) (test 7 % dbne=030) MONOCYTES RELATIVE PERCENT (BEAKER) (test 5 % kell=562) EOSINOPHILS RELATIVE PERCENT (BEAKER) (test 1 % zsjq=064) BASOPHILS RELATIVE PERCENT (BEAKER) (test 0 % rxln=610) NEUTROPHILS ABSOLUTE COUNT (BEAKER) (test 12.50 K/ L 1.56-6.13 cigl=437) LYMPHOCYTES ABSOLUTE COUNT (BEAKER) (test 1.09 K/ L 1.18-3.74 ahqf=727) MONOCYTES ABSOLUTE COUNT (BEAKER) (test 0.78 K/ L 0.24-0.36 dler=800) EOSINOPHILS ABSOLUTE COUNT (BEAKER) (test 0.14 K/ L 0.04-0.36 cscf=466) BASOPHILS ABSOLUTE COUNT (BEAKER) (test 0.03 K/ L 0.01-0.08 ydnw=408) IMMATURE GRANULOCYTES-RELATIVE PERCENT (BEAKER) 3 % 0-1 (test qykz=9477) POCT-GLUCOSE [id number] 21:35:00 Test Item Value Reference Range Comments POC-GLUCOSE METER (BEAKER) 79 mg/dL 70-110 TESTED AT [address] (test lcfm=5244) [place] [id number] POCT-GLUCOSE [id number] 17:30:00 Test Item Value Reference Range Comments POC-GLUCOSE METER (BEAKER) 156 mg/dL 70-110 TESTED AT [address] (test bdzl=6305) [place] [id number] POCT-GLUCOSE [id number] 15:05:00 Test Item Value Reference Range Comments POC-GLUCOSE METER (BEAKER) 211 mg/dL 70-110 TESTED AT [address] (test oqar=5899) [place] [id number] RAD, CHEST, 1 VIEW, NON [id number] 08:07:00Reason for exam:->sobShould this be performed at [...] Verified Date/ Time: 07/04/2019 08:07:46 Reading Location: [address] Ortho Consult Reading Room 08: 07 AMPOCT-GLUCOSE [id number] 08:05:00 Test Item Value Reference Range Comments POC-GLUCOSE METER (BEAKER) 148 mg/dL 70-110 TESTED AT [facility] [address] (test nkct=3629) [facility] [address] CBC W/PLT COUNT & AUTO [id number] 07:59:00 Test Item Value Reference Range Comments WHITE BLOOD CELL COUNT (BEAKER) (test ivts=527) 14.3 K/ L 3.5-10.5 RED BLOOD CELL COUNT (BEAKER) (test nizg=612) 3.65 M/ L 3.93-5.22 HEMOGLOBIN (BEAKER) (test vaki=497) 10.7 GM/DL 11.2-15.7 HEMATOCRIT (BEAKER) (test ketg=336) 32.7 % 34.1-44.9 MEAN CORPUSCULAR VOLUME (BEAKER) (test oqqh=761) 89.6 fL 79.4-94.8 MEAN CORPUSCULAR HEMOGLOBIN (BEAKER) (test 29.3 pg 25.6-32.2 fjhb=062) MEAN CORPUSCULAR HEMOGLOBIN CONC (BEAKER) (test 32.7 GM/DL 32.2-35.5 ulry=846) RED CELL DISTRIBUTION WIDTH (BEAKER) (test 14.6 % 11.7-14.4 qtup=570) PLATELET COUNT (BEAKER) (test hfjp=174) 217 K/CU MM 150-450 MEAN PLATELET VOLUME (BEAKER) (test bhlu=021) 12.2 fL 9.4-12.3 NUCLEATED RED BLOOD CELLS (BEAKER) (test 0 /100 WBC 0-0 ptrp=990) (CELLAVISION MANUAL DIFF)2019-07-04 07:59:00 Test Item Value Reference Range Comments NEUTROPHILS - REL (CELLAVISION)(BEAKER) (test 88 % sqaa=0828) LYMPHOCYTES - REL (CELLAVISION)(BEAKER) (test 6 % ydqv=6245) MONOCYTES - REL (CELLAVISION)(BEAKER) (test 5 % emys=8226) EOSINOPHILS - REL (CELLAVISION)(BEAKER) (test 1 % iqtz=8056) NEUTROPHILS - ABS (CELLAVISION)(BEAKER) (test 12.58 K/ul 1.56-6.13 ywnr=3366) LYMPHOCYTES - ABS (CELLAVISION)(BEAKER) (test 0.86 K/ul 1.18-3.74 hktg=0246) MONOCYTES - ABS (CELLAVISION)(BEAKER) (test 0.72 K/uL 0.24-0.36 lcwy=5798) EOSINOPHILS - ABS (CELLAVISION)(BEAKER) (test 0.14 K/uL 0.04-0.36 jlaj=6393) TOTAL COUNTED (BEAKER) (test wqbe=2770) 100 RBC MORPHOLOGY (BEAKER) (test kbrc=068) Normal WBC MORPHOLOGY (BEAKER) (test baih=050) Normal PLT MORPHOLOGY (BEAKER) (test frzn=442) Normal ARTIFACT (CELLAVISION)(BEAKER) (test kxjz=7642) Present PLATELET CONCENTRATION (CELLAVISION)(BEAKER) Adequate (test alqn=5864) Received comment: User comments: Slide comments:BASIC METABOLIC [id number] 07:39:00 Test Item Value Reference Range Comments SODIUM (BEAKER) (test 133 meq/L 136-145 pkrt=580) POTASSIUM (BEAKER) (test 3.8 meq/L 3.5-5.1 liws=193) CHLORIDE (BEAKER) (test 95 meq/L 98-107 wppj=110) CO2 (BEAKER) (test 25 meq/L 22-29 gipc=721) BLOOD UREA NITROGEN 93 mg/dL 7-21 (BEAKER) (test dxvz=745) CREATININE (BEAKER) (test 2.54 mg/dL 0.57-1.25 wadv=200) GLUCOSE RANDOM (BEAKER) 150 mg/dL 70-105 (test vxoe=618) CALCIUM (BEAKER) (test 9.0 mg/dL 8.4-10.2 jwdo=651) EGFR (BEAKER) (test 19 mL/min/1.73 sq m ESTIMATED GFR IS NOT teoi=9414) ACCURATE CREATININE CLEARANCE IN PREDICTING GLOMERULAR FILTRATION RATE. ESTIMATED GFR IS NOT APPLICABLE FOR DIALYSIS PATIENTS. [id number] 07:33:00 Test Item Value Reference Range Comments MAGNESIUM (BEAKER) (test jtpv=552) 2.2 mg/dL 1.6-2.6 POCT-GLUCOSE [id number] 21:21:00 Test Item Value Reference Range Comments POC-GLUCOSE METER (BEAKER) 161 mg/dL 70-110 TESTED AT [address] (test utxy=0699) [place] [id number] POCT-GLUCOSE [id number] 12:55:00 Test Item Value Reference Range Comments POC-GLUCOSE METER (BEAKER) 211 mg/dL 70-110 TESTED AT [address] (test hipu=5667) [facility] [address] CBC W/PLT COUNT & AUTO [id number] 09:36:00 Test Item Value Reference Range Comments WHITE BLOOD CELL COUNT (BEAKER) (test nldm=570) 12.7 K/ L 3.5-10.5 RED BLOOD CELL COUNT (BEAKER) (test gkuz=396) 3.81 M/ L 3.93-5.22 HEMOGLOBIN (BEAKER) (test jjty=786) 11.3 GM/DL 11.2-15.7 HEMATOCRIT (BEAKER) (test bfyu=711) 33.9 % 34.1-44.9 MEAN CORPUSCULAR VOLUME (BEAKER) (test skgq=223) 89.0 fL 79.4-94.8 MEAN CORPUSCULAR HEMOGLOBIN (BEAKER) (test 29.7 pg 25.6-32.2 pdol=038) MEAN CORPUSCULAR HEMOGLOBIN CONC (BEAKER) (test 33.3 GM/DL 32.2-35.5 gyab=746) RED CELL DISTRIBUTION WIDTH (BEAKER) (test 14.2 % 11.7-14.4 oqud=370) PLATELET COUNT (BEAKER) (test vmzs=522) 213 K/CU MM 150-450 MEAN PLATELET VOLUME (BEAKER) (test ibao=619) 11.9 fL 9.4-12.3 NUCLEATED RED BLOOD CELLS (BEAKER) (test 0 /100 WBC 0-0 ndfi=568) (CELLAVISION MANUAL DIFF)2019-07-03 09:36:00 Test Item Value Reference Range Comments NEUTROPHILS - REL (CELLAVISION)(BEAKER) (test 80 % wrtq=9095) LYMPHOCYTES - REL (CELLAVISION)(BEAKER) (test 10 % zudo=7998) MONOCYTES - REL (CELLAVISION)(BEAKER) (test 7 % uoqe=9119) EOSINOPHILS - REL (CELLAVISION)(BEAKER) (test 1 % akhl=5203) BANDS - REL (CELLAVISION)(BEAKER) (test 2 % 0-10 brxd=6983) NEUTROPHILS - ABS (CELLAVISION)(BEAKER) (test 10.16 K/ul 1.56-6.13 olcf=1290) LYMPHOCYTES - ABS (CELLAVISION)(BEAKER) (test 1.27 K/ul 1.18-3.74 syfb=5923) MONOCYTES - ABS (CELLAVISION)(BEAKER) (test 0.89 K/uL 0.24-0.36 bbbi=3605) EOSINOPHILS - ABS (CELLAVISION)(BEAKER) (test 0.13 K/uL 0.04-0.36 ccmo=3807) BANDS - ABS (CELLAVISION)(BEAKER) (test 0.25 K/uL 0.00-0.80 vlco=7635) TOTAL COUNTED (BEAKER) (test syvp=9213) 100 WBC MORPHOLOGY (BEAKER) (test lwdm=690) Normal GIANT PLATELETS (BEAKER) (test gnvu=297) Present LARGE PLT(BEAKER) (test iptu=5808) Present POLYCHROMATOPHILLIC RBCS(BEAKER) (test ykyc=056) 1+ few HYPOCHROMIA (BEAKER) (test izbm=658) 1+ few ANISOCYTOSIS (BEAKER) (test fzjf=142) 1+ few MACROCYTES (BEAKER) (test sgxa=545) 1+ few POIKILOCYTES (BEAKER) (test cytu=376) 1+ few OVALOCYTES (BEAKER) (test zzej=888) 1+ few ARTIFACT (CELLAVISION)(BEAKER) (test eova=1087) Present PLATELET CONCENTRATION (CELLAVISION)(BEAKER) Adequate (test metm=2441) Received comment: User comments: Slide comments:POCT-GLUCOSE [id number] 08: 50:00 Test Item Value Reference Range Comments POC-GLUCOSE METER (BEAKER) 150 mg/dL 70-110 TESTED AT [facility] [address] (test pnos=4774) [facility] [address] POCT-GLUCOSE [id number] 08:49:00 Test Item Value Reference Range Comments POC-GLUCOSE METER (BEAKER) 180 mg/dL 70-110 TESTED AT [address] (test pmth=2609) [facility] [address] RAD, CHEST, 1 VIEW, NON [id number] 07:08:00Reason for exam:->sobShould this be performed at [...] MDReport Verified Date/Time: 07/03/2019 07:08:54 Reading Location: [address] Reading Room BASIC METABOLIC [id number] 05:46:00 Test Item Value Reference Range Comments SODIUM (BEAKER) (test 133 meq/L 136-145 czws=514) POTASSIUM (BEAKER) (test 3.4 meq/L 3.5-5.1 stse=529) CHLORIDE (BEAKER) (test 93 meq/L 98-107 bcia=438) CO2 (BEAKER) (test 29 meq/L 22-29 wumt=711) BLOOD UREA NITROGEN 87 mg/dL 7-21 (BEAKER) (test sluj=960) CREATININE (BEAKER) (test 2.37 mg/dL 0.57-1.25 sqnf=338) GLUCOSE RANDOM (BEAKER) 146 mg/dL 70-105 (test utel=642) CALCIUM (BEAKER) (test 9.1 mg/dL 8.4-10.2 iknj=100) EGFR (BEAKER) (test 20 mL/min/1.73 sq m ESTIMATED GFR IS NOT jpce=2011) ACCURATE CREATININE CLEARANCE IN PREDICTING GLOMERULAR FILTRATION RATE. ESTIMATED GFR IS NOT APPLICABLE FOR DIALYSIS PATIENTS. [id number] 05:37:00 Test Item Value Reference Range Comments MAGNESIUM (BEAKER) (test ogoi=736) 2.2 mg/dL 1.6-2.6 BLOOD GAS, [id number] 05:26:00 Test Item Value Reference Range Comments PH VENOUS (BEAKER) (test ujwz=246) 7.46 7.32-7.42 PCO2 VENOUS (BEAKER) (test btzy=888) 43 mmHg 41-51 PO2 VENOUS (BEAKER) (test euse=359) 48 mmHg 25-40 O2 SATURATION VENOUS (BEAKER) (test ufxj=585) 86.0 % 40.0-70.0 HCO3 VENOUS (BEAKER) (test tutv=960) 30 mmol/L 21-29 BASE EXCESS VENOUS (BEAKER) (test mpsz=569) 5.2 mmol/L -2.0-3.0 PATIENT TEMPERATURE (BEAKER) (test qiio=1740) 37.0 C FIO2 (BEAKER) (test egiz=3656) 100.0 % [id number] 18:08:00 Test Item Value Reference Range Comments MAGNESIUM (BEAKER) (test lmxd=619) 2.5 mg/dL 1.6-2.6 [id number] 18:08:00 Test Item Value Reference Range Comments SODIUM (BEAKER) (test lfgn=215) 133 meq/L 136-145 POTASSIUM (BEAKER) (test xnsu=141) 3.6 meq/L 3.5-5.1 CHLORIDE (BEAKER) (test pmhn=785) 95 meq/L 98-107 CO2 (BEAKER) (test upbx=625) 27 meq/L 22-29 POCT-GLUCOSE [id number] 17:57:00 Test Item Value Reference Range Comments POC-GLUCOSE METER (BEAKER) 211 mg/dL 70-110 TESTED AT [address] (test umhq=7336) [facility] [address] POCT-GLUCOSE [id number] 14:09:00 Test Item Value Reference Range Comments POC-GLUCOSE METER (BEAKER) 220 mg/dL 70-110 TESTED AT [facility] [address] (test cesg=0087) [facility] [address] POCT-GLUCOSE [id number] 10:10:00 Test Item Value Reference Range Comments POC-GLUCOSE METER (BEAKER) 184 mg/dL 70-110 TESTED AT [facility] [address] (test noxi=2573) [facility] [address] RAD, CHEST, 1 VIEW, NON [id number] 07:25:00Reason for exam:->sobShould this be performed at [...] MDReport Verified Date/Time: 07/02/2019 07:25:25 Reading Location: [address] Neuro Reading Room CBC W/PLT COUNT & AUTO [id number] 06:58:00 Test Item Value Reference Range Comments WHITE BLOOD CELL COUNT (BEAKER) (test qbty=373) 8.9 K/ L 3.5-10.5 RED BLOOD CELL COUNT (BEAKER) (test ovib=710) 3.69 M/ L 3.93-5.22 HEMOGLOBIN (BEAKER) (test prom=981) 10.9 GM/DL 11.2-15.7 HEMATOCRIT (BEAKER) (test depx=249) 32.8 % 34.1-44.9 MEAN CORPUSCULAR VOLUME (BEAKER) (test hped=521) 88.9 fL 79.4-94.8 MEAN CORPUSCULAR HEMOGLOBIN (BEAKER) (test 29.5 pg 25.6-32.2 pvwr=598) MEAN CORPUSCULAR HEMOGLOBIN CONC (BEAKER) (test 33.2 GM/DL 32.2-35.5 aqtc=097) RED CELL DISTRIBUTION WIDTH (BEAKER) (test 14.4 % 11.7-14.4 ygiv=465) PLATELET COUNT (BEAKER) (test xbyn=231) 165 K/CU MM 150-450 MEAN PLATELET VOLUME (BEAKER) (test wakc=866) 12.3 fL 9.4-12.3 NUCLEATED RED BLOOD CELLS (BEAKER) (test 0 /100 WBC 0-0 vfbk=065) (CELLAVISION MANUAL DIFF)2019-07-02 06:58:00 Test Item Value Reference Range Comments NEUTROPHILS - REL (CELLAVISION)(BEAKER) (test 74 % vnnw=4368) LYMPHOCYTES - REL (CELLAVISION)(BEAKER) (test 6 % ryst=7633) MONOCYTES - REL (CELLAVISION)(BEAKER) (test 11 % sgmx=9410) BANDS - REL (CELLAVISION)(BEAKER) (test patm=9093) 8 % 0-10 ATYPICAL LYMPHOCYTES - REL (CELLAVISION)(BEAKER) 1 % 0-0 (test lapu=2535) NEUTROPHILS - ABS (CELLAVISION)(BEAKER) (test 6.59 K/ul 1.56-6.13 cilf=8871) LYMPHOCYTES - ABS (CELLAVISION)(BEAKER) (test 0.53 K/ul 1.18-3.74 tpvd=5375) MONOCYTES - ABS (CELLAVISION)(BEAKER) (test 0.98 K/uL 0.24-0.36 iibw=7642) BANDS - ABS (CELLAVISION)(BEAKER) (test bypc=9673) 0.71 K/uL 0.00-0.80 ATYPICAL LYMPHOCYTES - ABS (CELLAVISION)(BEAKER) 0.09 K/uL 0.00-0.00 (test ymjn=3440) TOTAL COUNTED (BEAKER) (test ypuf=8946) 100 RBC MORPHOLOGY (BEAKER) (test mxsv=221) Normal WBC MORPHOLOGY (BEAKER) (test aaaz=984) Normal PLT MORPHOLOGY (BEAKER) (test zbdz=664) Normal ARTIFACT (CELLAVISION)(BEAKER) (test adda=7258) Present PLATELET CONCENTRATION (CELLAVISION)(BEAKER) (test Adequate tshm=3821) Received comment: User comments: Slide comments:POCT-GLUCOSE [id number] 05: 51:00 Test Item Value Reference Range Comments POC-GLUCOSE METER (BEAKER) 219 mg/dL 70-110 TESTED AT [facility] [address] (test fkmw=7322) [place] [address] BLOOD GAS, [id number] 04:53:00 Test Item Value Reference Range Comments PH VENOUS (BEAKER) (test ietr=864) 7.42 7.32-7.42 PCO2 VENOUS (BEAKER) (test hbkv=038) 52 mmHg 41-51 PO2 VENOUS (BEAKER) (test rorw=767) 48 mmHg 25-40 O2 SATURATION VENOUS (BEAKER) (test owjy=771) 84.4 % 40.0-70.0 HCO3 VENOUS (BEAKER) (test bcod=158) 33 mmol/L 21-29 BASE EXCESS VENOUS (BEAKER) (test gomk=473) 6.8 mmol/L -2.0-3.0 PATIENT TEMPERATURE (BEAKER) (test zzaz=2740) 36.5 C FIO2 (BEAKER) (test aevi=5725) 50.0 % [id number] 04:41:00 Test Item Value Reference Range Comments PHOSPHORUS (BEAKER) (test syjf=918) 3.2 mg/dL 2.3-4.7 [id number] 04:41:00 Test Item Value Reference Range Comments MAGNESIUM (BEAKER) (test kdfu=244) 2.0 mg/dL 1.6-2.6 COMPREHENSIVE METABOLIC [id number] 04:41:00 Test Item Value Reference Range Comments TOTAL PROTEIN (BEAKER) (test 6.2 gm/dL 6.0-8.3 mthi=751) ALBUMIN (BEAKER) (test 3.0 g/dL 3.5-5.0 qgol=4070) ALKALINE PHOSPHATASE (BEAKER) 55 U/L 40-150 (test lwdy=543) BILIRUBIN TOTAL (BEAKER) 0.5 mg/dL 0.2-1.2 (test gkkf=409) SODIUM (BEAKER) (test 134 meq/L 136-145 udzy=445) POTASSIUM (BEAKER) (test 3.3 meq/L 3.5-5.1 vpsn=654) CHLORIDE (BEAKER) (test 93 meq/L 98-107 njsj=090) CO2 (BEAKER) (test onsf=835) 29 meq/L 22-29 BLOOD UREA NITROGEN (BEAKER) 85 mg/dL 7-21 (test iezx=052) CREATININE (BEAKER) (test 2.57 mg/dL 0.57-1.25 mxwf=552) GLUCOSE RANDOM (BEAKER) (test 214 mg/dL 70-105 rlxh=017) CALCIUM (BEAKER) (test 9.0 mg/dL 8.4-10.2 bglh=320) AST (SGOT) (BEAKER) (test 12 U/L 5-34 kytb=246) ALT (SGPT) (BEAKER) (test 9 U/L 6-55 cmfg=178) EGFR (BEAKER) (test INSUFFICIENT CLINICAL DATA TO nady=6352) CALCULATE ESTIMATED GFR. [id number] 17:18:00 Test Item Value Reference Range Comments POTASSIUM (BEAKER) (test gfjr=192) 3.7 meq/L 3.5-5.1 [id number] 17:18:00 Test Item Value Reference Range Comments MAGNESIUM (BEAKER) (test emlc=399) 2.1 mg/dL 1.6-2.6 POCT-GLUCOSE [id number] 16:43:00 Test Item Value Reference Range Comments POC-GLUCOSE METER (BEAKER) 236 mg/dL 70-110 TESTED AT [place] [id number] [facility] (test dhhp=7669) [facility] [address] POCT-GLUCOSE [id number] 12:53:00 Test Item Value Reference Range Comments POC-GLUCOSE METER (BEAKER) 210 mg/dL 70-110 TESTED AT [address] (test enej=1196) [facility] [address] RAD, CHEST, 1 VIEW, NON [id number] 11:06:00Reason for exam:->sobShould this be performed at the bedside?->YesFINAL REPORT Comparison: 06/30/2019 TECHNIQUE: Single view of the chest FINDINGS: Bibasilar densities are stable. Lungs otherwise grossly clear. Cardiac silhouette is enlarged. Left-sided central line is stable. Signed: Wali Velazcoeport Verified Date/Time: 07/01/2019 11:06:56 Reading Location: [facility] Radiology Reading Room Electronically signed by: WALI VELAZCO M.D. on07/01/2019 11: 06 AMCBC W/PLT COUNT & AUTO [id number] 09:49:00 Test Item Value Reference Range Comments WHITE BLOOD CELL COUNT (BEAKER) (test kqsd=491) 8.1 K/ L 3.5-10.5 RED BLOOD CELL COUNT (BEAKER) (test edxn=135) 3.85 M/ L 3.93-5.22 HEMOGLOBIN (BEAKER) (test kjme=521) 11.6 GM/DL 11.2-15.7 HEMATOCRIT (BEAKER) (test zekb=930) 35.0 % 34.1-44.9 MEAN CORPUSCULAR VOLUME (BEAKER) (test ymec=776) 90.9 fL 79.4-94.8 MEAN CORPUSCULAR HEMOGLOBIN (BEAKER) (test 30.1 pg 25.6-32.2 xclg=139) MEAN CORPUSCULAR HEMOGLOBIN CONC (BEAKER) (test 33.1 GM/DL 32.2-35.5 hfrn=244) RED CELL DISTRIBUTION WIDTH (BEAKER) (test 14.6 % 11.7-14.4 nhgl=366) PLATELET COUNT (BEAKER) (test doek=467) 143 K/CU MM 150-450 MEAN PLATELET VOLUME (BEAKER) (test nkju=223) 12.2 fL 9.4-12.3 NUCLEATED RED BLOOD CELLS (BEAKER) (test 0 /100 WBC 0-0 suzt=372) (CELLAVISION MANUAL DIFF)2019-07-01 09:49:00 Test Item Value Reference Range Comments NEUTROPHILS - REL (CELLAVISION)(BEAKER) (test 82 % wppn=1678) LYMPHOCYTES - REL (CELLAVISION)(BEAKER) (test 5 % nsyv=1850) MONOCYTES - REL (CELLAVISION)(BEAKER) (test 10 % edbh=3038) BANDS - REL (CELLAVISION)(BEAKER) (test yokj=8088) 1 % 0-10 ATYPICAL LYMPHOCYTES - REL (CELLAVISION)(BEAKER) 2 % 0-0 (test kbkc=8767) NEUTROPHILS - ABS (CELLAVISION)(BEAKER) (test 6.64 K/ul 1.56-6.13 fcxq=2984) LYMPHOCYTES - ABS (CELLAVISION)(BEAKER) (test 0.41 K/ul 1.18-3.74 scih=3605) MONOCYTES - ABS (CELLAVISION)(BEAKER) (test 0.81 K/uL 0.24-0.36 cqkp=7716) BANDS - ABS (CELLAVISION)(BEAKER) (test uwyq=9555) 0.08 K/uL 0.00-0.80 ATYPICAL LYMPHOCYTES - ABS (CELLAVISION)(BEAKER) 0.16 K/uL 0.00-0.00 (test xvmc=2011) TOTAL COUNTED (BEAKER) (test etaq=3596) 100 RBC MORPHOLOGY (BEAKER) (test xviu=555) Normal SMUDGE CELLS (BEAKER) (test sler=3713) Present GIANT PLATELETS (BEAKER) (test gmri=303) Present TOXIC GRANULATION (BEAKER) (test ajdv=912) Present PLATELET CONCENTRATION (CELLAVISION)(BEAKER) (test Decreased ahen=4938) Received comment: User comments: Slide comments:COMPREHENSIVE METABOLIC [id number] 08:39:00 Test Item Value Reference Range Comments TOTAL PROTEIN (BEAKER) (test 6.3 gm/dL 6.0-8.3 ipgl=031) ALBUMIN (BEAKER) (test 3.0 g/dL 3.5-5.0 jnly=4040) ALKALINE PHOSPHATASE (BEAKER) 58 U/L 40-150 (test vnxf=592) BILIRUBIN TOTAL (BEAKER) 0.5 mg/dL 0.2-1.2 (test tudu=728) SODIUM (BEAKER) (test 134 meq/L 136-145 onvx=331) POTASSIUM (BEAKER) (test 3.9 meq/L 3.5-5.1 wnrn=212) CHLORIDE (BEAKER) (test 95 meq/L 98-107 rsxq=109) CO2 (BEAKER) (test orwn=202) 26 meq/L 22-29 BLOOD UREA NITROGEN (BEAKER) 83 mg/dL 7-21 (test lgbf=758) CREATININE (BEAKER) (test 2.75 mg/dL 0.57-1.25 zqnu=000) GLUCOSE RANDOM (BEAKER) (test 161 mg/dL 70-105 svig=194) CALCIUM (BEAKER) (test 8.9 mg/dL 8.4-10.2 uymx=730) AST (SGOT) (BEAKER) (test 18 U/L 5-34 hxza=454) ALT (SGPT) (BEAKER) (test 10 U/L 6-55 cwhq=902) EGFR (BEAKER) (test INSUFFICIENT CLINICAL DATA TO swpp=7814) CALCULATE ESTIMATED GFR. [id number] 08:30:00 Test Item Value Reference Range Comments PHOSPHORUS (BEAKER) (test nqvf=330) 5.3 mg/dL 2.3-4.7 [id number] 08:30:00 Test Item Value Reference Range Comments MAGNESIUM (BEAKER) (test aeqh=491) 2.1 mg/dL 1.6-2.6 POCT-GLUCOSE [id number] 08:15:00 Test Item Value Reference Range Comments POC-GLUCOSE METER (BEAKER) 167 mg/dL 70-110 TESTED AT [address] (test wykg=9659) [facility] [address] BLOOD GAS, [id number] 05:55:00 Test Item Value Reference Range Comments PH VENOUS (BEAKER) (test rrop=192) 7.35 7.32-7.42 PCO2 VENOUS (BEAKER) (test ntht=324) 54 mmHg 41-51 PO2 VENOUS (BEAKER) (test idyg=428) 47 mmHg 25-40 O2 SATURATION VENOUS (BEAKER) (test ihho=353) 80.3 % 40.0-70.0 HCO3 VENOUS (BEAKER) (test mrra=844) 29 mmol/L 21-29 BASE EXCESS VENOUS (BEAKER) (test nofc=687) 2.5 mmol/L -2.0-3.0 PATIENT TEMPERATURE (BEAKER) (test rnym=5951) 37.0 C FIO2 (BEAKER) (test iakq=4562) 100.0 % CALCIUM, [id number] 05:50:00 Test Item Value Reference Range Comments CALCIUM IONIZED (BEAKER) (test raqh=979) 1.12 mmol/L 1.12-1.27 PH, BLOOD (BEAKER) (test cibx=5953) 7.35 BASIC METABOLIC [id number] 01:53:00 Test Item Value Reference Range Comments SODIUM (BEAKER) (test 133 meq/L 136-145 upmu=765) POTASSIUM (BEAKER) (test 3.6 meq/L 3.5-5.1 bxjr=689) CHLORIDE (BEAKER) (test 95 meq/L 98-107 fpgw=465) CO2 (BEAKER) (test xqkx=802) 24 meq/L 22-29 BLOOD UREA NITROGEN (BEAKER) 77 mg/dL 7-21 (test evzb=868) CREATININE (BEAKER) (test 2.79 mg/dL 0.57-1.25 fguo=998) GLUCOSE RANDOM (BEAKER) 211 mg/dL 70-105 (test igjm=947) CALCIUM (BEAKER) (test 8.8 mg/dL 8.4-10.2 kdkq=922) EGFR (BEAKER) (test INSUFFICIENT CLINICAL DATA TO fqqo=0370) CALCULATE ESTIMATED GFR. PUL PERF [facility], [id number] 23:32:00Reason for exam:-> dyspneaFINAL REPORT PROCEDURE: V/Q LUNG SCAN CPT CODE: 23032 INDICATION: exertional dyspnea PROTOCOL: 9.3 mCi of [...] MANDO HERNÁNDEZ MD on 2018 11:32 PMPOCT-GLUCOSE [id number] 22:19:00 Test Item Value Reference Range Comments POC-GLUCOSE METER (BEAKER) 218 mg/dL 70-110 TESTED AT [address] (test jhkz=3380) [facility] [address] CT, CHEST, WITHOUT [id number] 21:46:00Reason for exam:->sobAnesthesia :->NoneFINAL REPORT EXAM: CT [...] pneumonia and/or subsegmental atelectasis. Signed: Gil Hooper [facility] Verified Date/Time: 21:46:13 Electronically signed by: GIL HOOPER MD on 10/2018 09:46 [facility] METABOLIC [id number] 13:40:00 Test Item Value Reference Range Comments SODIUM (BEAKER) (test 132 meq/L 136-145 uium=917) POTASSIUM (BEAKER) (test 3.6 meq/L 3.5-5.1 mxdq=364) CHLORIDE (BEAKER) (test 97 meq/L 98-107 sqnm=902) CO2 (BEAKER) (test uygm=263) 26 meq/L 22-29 BLOOD UREA NITROGEN (BEAKER) 75 mg/dL 7-21 (test kaij=104) CREATININE (BEAKER) (test 2.76 mg/dL 0.57-1.25 uprf=759) GLUCOSE RANDOM (BEAKER) 173 mg/dL 70-105 (test mijc=090) CALCIUM (BEAKER) (test 8.4 mg/dL 8.4-10.2 trid=832) EGFR (BEAKER) (test INSUFFICIENT CLINICAL DATA TO sqeg=9535) CALCULATE ESTIMATED GFR. POCT-GLUCOSE [id number] 11:53:00 Test Item Value Reference Range Comments POC-GLUCOSE METER (BEAKER) 135 mg/dL 70-110 TESTED AT [facility] [address] [facility] (test eagm=6222) [facility] [address] BLOOD GAS, [id number] 11:08:00 Test Item Value Reference Range Comments PH VENOUS (BEAKER) (test jkan=724) 7.34 7.32-7.42 PCO2 VENOUS (BEAKER) (test wksd=177) 50 mmHg 41-51 PO2 VENOUS (BEAKER) (test crfn=087) 49 mmHg 25-40 O2 SATURATION VENOUS (BEAKER) (test uuue=557) 82.0 % 40.0-70.0 HCO3 VENOUS (BEAKER) (test zaok=062) 27 mmol/L 21-29 BASE EXCESS VENOUS (BEAKER) (test sotp=949) 0.5 mmol/L -2.0-3.0 PATIENT TEMPERATURE (BEAKER) (test hlah=1557) 37.0 C FIO2 (BEAKER) (test grdh=7727) 100.0 % CBC W/PLT COUNT & AUTO [id number] 07:52:00 Test Item Value Reference Range Comments WHITE BLOOD CELL COUNT (BEAKER) 9.9 K/ L 3.5-10.5 (test roao=299) RED BLOOD CELL COUNT (BEAKER) 3.94 M/ L 3.93-5.22 (test wqmj=992) HEMOGLOBIN (BEAKER) (test 11.8 GM/DL 11.2-15.7 hhal=462) HEMATOCRIT (BEAKER) (test 35.7 % 34.1-44.9 ngvu=586) MEAN CORPUSCULAR VOLUME 90.6 fL 79.4-94.8 (BEAKER) (test pxwf=174) MEAN CORPUSCULAR HEMOGLOBIN 29.9 pg 25.6-32.2 (BEAKER) (test uncj=011) MEAN CORPUSCULAR HEMOGLOBIN 33.1 GM/DL 32.2-35.5 CONC (BEAKER) (test coyg=969) RED CELL DISTRIBUTION WIDTH 14.7 % 11.7-14.4 (BEAKER) (test zzwo=962) PLATELET COUNT (BEAKER) (test 128 K/CU MM 150-450 bdrt=447) MEAN PLATELET VOLUME (BEAKER) 11.6 fL 9.4-12.3 MPV-Approximately 20% (test gdci=527) positive bias due to method change. NUCLEATED RED BLOOD CELLS 0 /100 WBC 0-0 (BEAKER) (test bxru=281) (CELLAVISION MANUAL DIFF)2019-06-30 07:52:00 Test Item Value Reference Range Comments NEUTROPHILS - REL (CELLAVISION)(BEAKER) (test 81 % gjtq=3943) LYMPHOCYTES - REL (CELLAVISION)(BEAKER) (test 9 % vptm=5416) MONOCYTES - REL (CELLAVISION)(BEAKER) (test 4 % ozmt=0068) BANDS - REL (CELLAVISION)(BEAKER) (test vbjc=0091) 5 % 0-10 NEUTROPHILS - ABS (CELLAVISION)(BEAKER) (test 8.02 K/ul 1.56-6.13 hbcx=1771) LYMPHOCYTES - ABS (CELLAVISION)(BEAKER) (test 0.89 K/ul 1.18-3.74 qdoj=5522) MONOCYTES - ABS (CELLAVISION)(BEAKER) (test 0.40 K/uL 0.24-0.36 gbse=2986) BANDS - ABS (CELLAVISION)(BEAKER) (test mjda=2894) 0.50 K/uL 0.00-0.80 TOTAL COUNTED (BEAKER) (test uwqp=5250) 100 PLT MORPHOLOGY (BEAKER) (test cice=856) Normal DOHLE BODIES (BEAKER) (test ernt=486) Present TOXIC GRANULATION (BEAKER) (test dall=586) Present POLYCHROMATOPHILLIC RBCS(BEAKER) (test vgvn=781) 1+ few ANISOCYTOSIS (BEAKER) (test nofp=489) 1+ few POIKILOCYTES (BEAKER) (test fbbm=555) 1+ few JOSSY CELLS (BEAKER) (test yobr=832) 1+ few ARTIFACT (CELLAVISION)(BEAKER) (test ereg=1578) Present PLATELET CONCENTRATION (CELLAVISION)(BEAKER) (test Decreased xrhq=7923) Received comment: User comments: Slide comments:RAD, ABDOMEN/KUB, 1 VIEW [id number] 07:41:00Reason for exam:->ileusShould this be performed at [...] MDReport Verified Date/Time: 06/30/2019 07:41:54 Reading Location: [address] Neuro Reading Room RAD, CHEST, 1 VIEW, NON [id number] 07:39:00Reason for exam:->sobShould this be performed at [...] MDReport Verified Date/Time: 06/30/2019 07:39:31 Reading Location: [facility] B1 C013V Neuro Reading Room COMPREHENSIVE METABOLIC [id number] 03:49:00 Test Item Value Reference Range Comments TOTAL PROTEIN (BEAKER) (test 6.1 gm/dL 6.0-8.3 iwre=924) ALBUMIN (BEAKER) (test 3.0 g/dL 3.5-5.0 vxhk=3779) ALKALINE PHOSPHATASE (BEAKER) 58 U/L 40-150 (test lfcz=971) BILIRUBIN TOTAL (BEAKER) 0.4 mg/dL 0.2-1.2 (test elbs=813) SODIUM (BEAKER) (test 136 meq/L 136-145 ophs=344) POTASSIUM (BEAKER) (test 3.8 meq/L 3.5-5.1 dxnd=045) CHLORIDE (BEAKER) (test 98 meq/L 98-107 wqjj=285) CO2 (BEAKER) (test jthn=740) 26 meq/L 22-29 BLOOD UREA NITROGEN (BEAKER) 77 mg/dL 7-21 (test inrp=383) CREATININE (BEAKER) (test 3.03 mg/dL 0.57-1.25 vtwz=687) GLUCOSE RANDOM (BEAKER) (test 173 mg/dL 70-105 vjrq=383) CALCIUM (BEAKER) (test 9.0 mg/dL 8.4-10.2 xzny=652) AST (SGOT) (BEAKER) (test 19 U/L 5-34 jiky=103) ALT (SGPT) (BEAKER) (test 13 U/L 6-55 ctel=700) EGFR (BEAKER) (test INSUFFICIENT CLINICAL DATA TO ziqi=9342) CALCULATE ESTIMATED GFR. [id number] 03:42:00 Test Item Value Reference Range Comments PHOSPHORUS (BEAKER) (test vxar=853) 5.8 mg/dL 2.3-4.7 [id number] 03:42:00 Test Item Value Reference Range Comments MAGNESIUM (BEAKER) (test oxec=367) 2.3 mg/dL 1.6-2.6 CALCIUM, [id number] 03:31:00 Test Item Value Reference Range Comments CALCIUM IONIZED (BEAKER) (test nwsy=815) 1.09 mmol/L 1.12-1.27 PH, BLOOD (BEAKER) (test vtqo=0558) 7.31 BASIC METABOLIC [id number] 20:52:00 Test Item Value Reference Range Comments SODIUM (BEAKER) (test 134 meq/L 136-145 msmk=367) POTASSIUM (BEAKER) (test 3.9 meq/L 3.5-5.1 Specimen moderately hemolyzed lonm=354) CHLORIDE (BEAKER) (test 99 meq/L 98-107 iksu=974) CO2 (BEAKER) (test eyam=763) 23 meq/L 22-29 BLOOD UREA NITROGEN (BEAKER) 74 mg/dL 7-21 (test senc=495) CREATININE (BEAKER) (test 3.10 mg/dL 0.57-1.25 Specimen moderately hemolyzed wqqo=956) GLUCOSE RANDOM (BEAKER) 204 mg/dL 70-105 (test ypsq=687) CALCIUM (BEAKER) (test 8.5 mg/dL 8.4-10.2 ajct=228) EGFR (BEAKER) (test INSUFFICIENT CLINICAL DATA TO bdbe=8497) CALCULATE ESTIMATED GFR. [id number] 20:32:00 Test Item Value Reference Range Comments ACTIVATED CLOTTING TIME 120 sec Reference Range: 74-137 (BEAKER) (test rzek=810) seconds, Baseline/TESTED AT [place] [address] [id number] 18:28:00 Test Item Value Reference Range Comments ACTIVATED CLOTTING TIME 136 sec Reference Range: 74-137 (BEAKER) (test ugoi=002) seconds, Baseline/TESTED AT [place] [address] POCT-GLUCOSE [id number] 17:26:00 Test Item Value Reference Range Comments POC-GLUCOSE METER (BEAKER) 189 mg/dL 70-110 TESTED AT [address] (test qigw=2218) [place] [address] [id number] 17:13:00 Test Item Value Reference Range Comments ACTIVATED CLOTTING TIME 147 sec Reference Range: 74-137 (BEAKER) (test hxxq=513) seconds, Baseline/TESTED AT [place] [address] [id number] 16:50:00 Test Item Value Reference Range Comments ACTIVATED CLOTTING TIME 158 sec Reference Range: 74-137 (BEAKER) (test ihbd=851) seconds, Baseline/TESTED AT [place] [address] BASIC METABOLIC [id number] 15:22:00 Test Item Value Reference Range Comments SODIUM (BEAKER) (test 135 meq/L 136-145 toih=524) POTASSIUM (BEAKER) (test 3.9 meq/L 3.5-5.1 rlis=335) CHLORIDE (BEAKER) (test 99 meq/L 98-107 msrs=462) CO2 (BEAKER) (test urti=202) 24 meq/L 22-29 BLOOD UREA NITROGEN (BEAKER) 71 mg/dL 7-21 (test phfb=326) CREATININE (BEAKER) (test 2.98 mg/dL 0.57-1.25 bdod=780) GLUCOSE RANDOM (BEAKER) 179 mg/dL 70-105 (test hnmt=825) CALCIUM (BEAKER) (test 8.8 mg/dL 8.4-10.2 fzxm=578) EGFR (BEAKER) (test INSUFFICIENT CLINICAL DATA TO gtoj=3189) CALCULATE ESTIMATED GFR. [id number] 14:36:00 Test Item Value Reference Range Comments ACTIVATED CLOTTING TIME 219 sec Reference Range: 74-137 (BEAKER) (test iavj=691) seconds, Baseline/TESTED AT [place] [address] [id number] 13:50:00 Test Item Value Reference Range Comments ACTIVATED CLOTTING TIME 257 sec Reference Range: 74-137 (BEAKER) (test skyf=228) seconds, Baseline/TESTED AT [place] [id number] RAD, ABDOMEN/KUB, 1 VIEW [id number] 10:18:00Reason for exam:->ileusShould this be performed at the bedside?->YesFINAL REPORT CLINICAL HISTORY: ileus TECHNIQUE: Supine abdomen COMPARISON: 06/28/2019 IMPRESSION: The bowel gas pattern is nonspecific. Free air and air-fluid levels are not seen but cannot be definitively excluded on the supine view. Vascular stents are again seen in the left upper abdomen and midline lower abdomen. Signed: Antolin Jarrell MDReport Verified Date/Time: 06/29/201910:18:28 Reading Location: [facility] Radiology Reading Room RAD, CHEST, 1 VIEW, NON [id number] 09:28:00Reason for exam:->sobShould this be performed at the bedside?-> YesFINAL REPORT CLINICAL HISTORY: sob TECHNIQUE: 1 view of the chest. COMPARISON: 06/28/2019 IMPRESSION: The left jugular line is unchanged. Minimal bibasilar atelectasis is unchanged. The cardiomediastinal silhouette is magnified by technique. Signed: Antolin Jarrell MDReport Verified Date/Time: 06/29/2019 09:28:17 Reading Location: [facility] Radiology Reading Room CBC W/PLT COUNT & AUTO [id number] 08:40:00 Test Item Value Reference Range Comments WHITE BLOOD CELL COUNT (BEAKER) 11.1 K/ L 3.5-10.5 (test fknw=150) RED BLOOD CELL COUNT (BEAKER) 4.37 M/ L 3.93-5.22 (test qvyi=871) HEMOGLOBIN (BEAKER) (test 13.0 GM/DL 11.2-15.7 mxid=193) HEMATOCRIT (BEAKER) (test 39.6 % 34.1-44.9 looq=393) MEAN CORPUSCULAR VOLUME 90.6 fL 79.4-94.8 (BEAKER) (test qhkz=295) MEAN CORPUSCULAR HEMOGLOBIN 29.7 pg 25.6-32.2 (BEAKER) (test yiqv=564) MEAN CORPUSCULAR HEMOGLOBIN 32.8 GM/DL 32.2-35.5 CONC (BEAKER) (test fgxi=432) RED CELL DISTRIBUTION WIDTH 14.7 % 11.7-14.4 (BEAKER) (test psns=095) PLATELET COUNT (BEAKER) (test 120 K/CU MM 150-450 vhxr=554) MEAN PLATELET VOLUME (BEAKER) 11.0 fL 9.4-12.3 MPV-Approximately 20% (test hixy=921) positive bias due to method change. NUCLEATED RED BLOOD CELLS 0 /100 WBC 0-0 (BEAKER) (test tnbl=900) (CELLAVISION MANUAL DIFF)2019-06-29 08:40:00 Test Item Value Reference Range Comments NEUTROPHILS - REL (CELLAVISION)(BEAKER) (test 79 % wfdn=7441) LYMPHOCYTES - REL (CELLAVISION)(BEAKER) (test 7 % gshf=2212) MONOCYTES - REL (CELLAVISION)(BEAKER) (test 6 % upqx=0841) BANDS - REL (CELLAVISION)(BEAKER) (test fzjt=2921) 8 % 0-10 NEUTROPHILS - ABS (CELLAVISION)(BEAKER) (test 8.77 K/ul 1.56-6.13 ykga=4891) LYMPHOCYTES - ABS (CELLAVISION)(BEAKER) (test 0.78 K/ul 1.18-3.74 tnpg=1161) MONOCYTES - ABS (CELLAVISION)(BEAKER) (test 0.67 K/uL 0.24-0.36 qxvn=4981) BANDS - ABS (CELLAVISION)(BEAKER) (test gmbr=7725) 0.89 K/uL 0.00-0.80 TOTAL COUNTED (BEAKER) (test oynd=6506) 100 RBC MORPHOLOGY (BEAKER) (test klfq=267) Normal WBC MORPHOLOGY (BEAKER) (test ruey=501) Normal PLT MORPHOLOGY (BEAKER) (test azsf=725) Normal ARTIFACT (CELLAVISION)(BEAKER) (test zvsp=1191) Present PLATELET CONCENTRATION (CELLAVISION)(BEAKER) (test Decreased fgzw=1899) Received comment: User comments: Slide comments:BLOOD GAS, [id number] 04 :40:00 Test Item Value Reference Range Comments PH ARTERIAL (BEAKER) (test mqsf=602) 7.45 7.35-7.45 PCO2 ARTERIAL (BEAKER) (test knoo=567) 34 mmHg 35-45 PO2 ARTERIAL (BEAKER) (test draj=046) 74 mmHg 80-90 O2 SATURATION ARTERIAL (BEAKER) (test lssa=213) 95.5 % 96.0-97.0 HCO3 ARTERIAL (BEAKER) (test zlya=837) 23 mmol/L 21-29 BASE EXCESS ARTERIAL (BEAKER) (test ttup=888) -0.6 mmol/L -2.0-3.0 PATIENT TEMPERATURE (BEAKER) (test vfku=7503) 37.0 C FIO2 (BEAKER) (test xihz=5229) 44.0 % COMPREHENSIVE METABOLIC [id number] 04:37:00 Test Item Value Reference Range Comments TOTAL PROTEIN (BEAKER) (test 6.2 gm/dL 6.0-8.3 nhvu=752) ALBUMIN (BEAKER) (test 3.0 g/dL 3.5-5.0 otnn=5149) ALKALINE PHOSPHATASE (BEAKER) 57 U/L 40-150 (test tffg=220) BILIRUBIN TOTAL (BEAKER) 0.6 mg/dL 0.2-1.2 (test jnzc=866) SODIUM (BEAKER) (test 134 meq/L 136-145 inkr=279) POTASSIUM (BEAKER) (test 3.7 meq/L 3.5-5.1 qjot=561) CHLORIDE (BEAKER) (test 98 meq/L 98-107 xadz=797) CO2 (BEAKER) (test ndim=696) 25 meq/L 22-29 BLOOD UREA NITROGEN (BEAKER) 65 mg/dL 7-21 (test njzk=775) CREATININE (BEAKER) (test 2.99 mg/dL 0.57-1.25 gujq=275) GLUCOSE RANDOM (BEAKER) (test 157 mg/dL 70-105 avlv=450) CALCIUM (BEAKER) (test 8.6 mg/dL 8.4-10.2 tdku=987) AST (SGOT) (BEAKER) (test 20 U/L 5-34 dpor=625) ALT (SGPT) (BEAKER) (test 13 U/L 6-55 pxib=041) EGFR (BEAKER) (test INSUFFICIENT CLINICAL DATA TO dwpk=7715) CALCULATE ESTIMATED GFR. B-TYPE NATRIURETIC FACTOR (BNP)2019-06-29 04:34:00 Test Item Value Reference Range Comments B-TYPE NATRIURETIC PEPTIDE (BEAKER) (test 848 pg/mL 0-100 usys=499) [id number] 04:33:00 Test Item Value Reference Range Comments PHOSPHORUS (BEAKER) (test svpg=389) 5.2 mg/dL 2.3-4.7 [id number] 04:33:00 Test Item Value Reference Range Comments MAGNESIUM (BEAKER) (test ldrx=282) 1.8 mg/dL 1.6-2.6 CALCIUM, [id number] 04:22:00 Test Item Value Reference Range Comments CALCIUM IONIZED (BEAKER) (test xgya=791) 1.09 mmol/L 1.12-1.27 PH, BLOOD (BEAKER) (test kcan=8193) 7.39 BASIC METABOLIC [id number] 22:10:00 Test Item Value Reference Range Comments SODIUM (BEAKER) (test 136 meq/L 136-145 zjjm=029) POTASSIUM (BEAKER) (test 3.4 meq/L 3.5-5.1 Specimen slightly hemolyzed ybgd=017) CHLORIDE (BEAKER) (test 99 meq/L 98-107 yayy=913) CO2 (BEAKER) (test dmlx=341) 24 meq/L 22-29 BLOOD UREA NITROGEN (BEAKER) 62 mg/dL 7-21 (test dwgg=438) CREATININE (BEAKER) (test 3.07 mg/dL 0.57-1.25 Specimen slightly hemolyzed oznk=878) GLUCOSE RANDOM (BEAKER) 206 mg/dL 70-105 (test wzbs=524) CALCIUM (BEAKER) (test 8.7 mg/dL 8.4-10.2 zfbo=642) EGFR (BEAKER) (test INSUFFICIENT CLINICAL DATA TO sbdr=0336) CALCULATE ESTIMATED GFR. POCT-GLUCOSE [id number] 18:08:00 Test Item Value Reference Range Comments POC-GLUCOSE METER (BEAKER) 180 mg/dL 70-110 TESTED AT [address] (test cdaf=4412) [facility] [address] BLOOD GAS, [id number] 16:21:00 Test Item Value Reference Range Comments PH VENOUS (BEAKER) (test uouk=846) 7.33 7.32-7.42 PCO2 VENOUS (BEAKER) (test sdqp=079) 49 mmHg 41-51 PO2 VENOUS (BEAKER) (test ytsr=904) 50 mmHg 25-40 O2 SATURATION VENOUS (BEAKER) (test fenz=567) 83.0 % 40.0-70.0 HCO3 VENOUS (BEAKER) (test mfag=159) 25 mmol/L 21-29 BASE EXCESS VENOUS (BEAKER) (test qjyl=289) -1.1 mmol/L -2.0-3.0 PATIENT TEMPERATURE (BEAKER) (test qonz=5941) 37.0 C RAD, CHEST, 1 VIEW, NON [id number] 14:41:00Reason for exam:->eval central lineShould this be [...] MDReport Verified Date/Time: 06/28/2019 14:41:37 Reading Location: [facility] Mammo Reading Room RESPIRATORY PANEL [id number] 14:06:00 Test Item Value Reference Range Comments HUMAN METAPNEUMOVIRUS Not detected Not detected, (BEAKER) (test mmgd=1689) Equivocal RHINOVIRUS (BEAKER) (test Not detected Not detected, zvub=4654) Equivocal INFLUENZA A (BEAKER) (test Not detected Not detected, gylw=7617) Equivocal INFLUENZA A (NO SUBTYPE) (test shyo=5965) INFLUENZA A SUBTYPE H1 (BEAKER) (test zsns=2685) INFLUENZA A SUBTYPE H3 (BEAKER) (test rqdr=9850) INFLUENZA A SUBTYPE H1-2009 (BEAKER) (test ayzy=1911) INFLUENZA B (BEAKER) (test Not detected Not detected, kkze=1909) Equivocal RESPIRATORY SYNCYTIAL Not detected Not detected, VIRUS (BEAKER) (test Equivocal bcfm=4179) PARAINFLUENZA VIRUS 1 Detected Not detected, Contact isolation if (BEAKER) (test otiu=7875) Equivocal immunosuppressed or young children. Consider stopping antibiotics. PARAINFLUENZA VIRUS 2 Not detected Not detected, (BEAKER) (test jamu=1980) Equivocal PARAINFLUENZA VIRUS 3 Not detected Not detected, (BEAKER) (test xlra=5030) Equivocal PARAINFLUENZA VIRUS 4 Not detected Not detected, (BEAKER) (test ecow=5581) Equivocal ADENOVIRUS (BEAKER) (test Not detected Not detected, lktr=8748) Equivocal CORONAVIRUS 229E (BEAKER) Not detected Not detected, (test twjc=2499) Equivocal CORONAVIRUS HKU1 (BEAKER) Not detected Not detected, (test fdqz=8250) Equivocal CORONAVIRUS NL63 (BEAKER) Not detected Not detected, (test rhax=5025) Equivocal CORONAVIRUS OC43 (BEAKER) Not detected Not detected, (test bhlp=9878) Equivocal BORDETELLA PERTUSSIS Not detected Not detected, (BEAKER) (test myeb=6839) Equivocal CHLAMYDOPHILA PNEUMONIAE Not detected Not detected, (BEAKER) (test oajk=3979) Equivocal MYCOPLASMA PNEUMONIAE Not detected Not detected, (BEAKER) (test cdfl=6995) Equivocal Other viruses and bacteria not targeted by this PCR panel cannot be excluded; therefore clinical correlation and follow up of serology, culture results, and other molecular studies is required. The results are not intended to be used as the sole means for clinical diagnosis or patient management decisions. This sample was tested at the [facility] Molecular Diagnostics Laboratory using the AstaroArray Respiratory Panel. It is FDA cleared and has been verified and approved by the [facility] Molecular [facility]ostics [facility] for clinical use on nasopharyngeal swab specimens.The performance of the FilmArrayRP has not been established in individuals who received influenza vaccine. Recent administration ofa nasal influenza vaccine may cause false positive results for Influenza A and/orInfluenza B.CBC W/PLT COUNT & AUTO [id number] 13:11:00 Test Item Value Reference Range Comments WHITE BLOOD CELL COUNT (BEAKER) (test izdg=100) 11.7 K/ L 3.5-10.5 RED BLOOD CELL COUNT (BEAKER) (test fzxc=058) 4.84 M/ L 3.93-5.22 HEMOGLOBIN (BEAKER) (test aasf=665) 14.5 GM/DL 11.2-15.7 HEMATOCRIT (BEAKER) (test kotx=302) 43.9 % 34.1-44.9 MEAN CORPUSCULAR VOLUME (BEAKER) (test fogk=223) 90.7 fL 79.4-94.8 MEAN CORPUSCULAR HEMOGLOBIN (BEAKER) (test 30.0 pg 25.6-32.2 btqd=929) MEAN CORPUSCULAR HEMOGLOBIN CONC (BEAKER) (test 33.0 GM/DL 32.2-35.5 xjfn=133) RED CELL DISTRIBUTION WIDTH (BEAKER) (test 15.1 % 11.7-14.4 lzhj=953) PLATELET COUNT (BEAKER) (test peuc=286) 167 K/CU MM 150-450 MEAN PLATELET VOLUME (BEAKER) (test epmb=859) 11.0 fL 9.4-12.3 NUCLEATED RED BLOOD CELLS (BEAKER) (test 0 /100 WBC 0-0 wvhr=801) (CELLAVISION MANUAL DIFF)2019-06-28 13:11:00 Test Item Value Reference Range Comments NEUTROPHILS - REL (CELLAVISION)(BEAKER) (test 56 % kkfx=6168) LYMPHOCYTES - REL (CELLAVISION)(BEAKER) (test 4 % xqyv=3592) MONOCYTES - REL (CELLAVISION)(BEAKER) (test 2 % kghs=5124) BANDS - REL (CELLAVISION)(BEAKER) (test 37 % 0-10 tnpg=3833) ATYPICAL LYMPHOCYTES - REL (CELLAVISION)(BEAKER) 1 % 0-0 (test eiaf=0638) NEUTROPHILS - ABS (CELLAVISION)(BEAKER) (test 6.55 K/ul 1.56-6.13 vvtq=7335) LYMPHOCYTES - ABS (CELLAVISION)(BEAKER) (test 0.47 K/ul 1.18-3.74 kkla=4427) MONOCYTES - ABS (CELLAVISION)(BEAKER) (test 0.23 K/uL 0.24-0.36 lakq=9358) BANDS - ABS (CELLAVISION)(BEAKER) (test 4.33 K/uL 0.00-0.80 hrju=6419) ATYPICAL LYMPHOCYTES - ABS (CELLAVISION)(BEAKER) 0.12 K/uL 0.00-0.00 (test fxsi=6803) TOTAL COUNTED (BEAKER) (test sxkf=4704) 100 PLT MORPHOLOGY (BEAKER) (test mtre=677) Normal SMUDGE CELLS (BEAKER) (test hpci=6806) Present ANISOCYTOSIS (BEAKER) (test wdjo=842) 1+ few POIKILOCYTES (BEAKER) (test ltyq=405) 3+ many SCHISTOCYTES (BEAKER) (test osaq=483) 1+ few JOSSY CELLS (BEAKER) (test qmfv=775) 2+ moderate PLATELET CONCENTRATION (CELLAVISION)(BEAKER) Adequate (test pwlm=5810) Received comment: User comments: Slide comments:POCT-GLUCOSE [id number] 12: 54:00 Test Item Value Reference Range Comments POC-GLUCOSE METER (BEAKER) 186 mg/dL 70-110 TESTED AT [facility] [address] (test kbgk=4000) [facility] [id number] BASIC METABOLIC [id number] 12:30:00 Test Item Value Reference Range Comments SODIUM (BEAKER) (test 133 meq/L 136-145 pwej=642) POTASSIUM (BEAKER) (test 3.8 meq/L 3.5-5.1 Specimen moderately hemolyzed bymr=930) CHLORIDE (BEAKER) (test 101 meq/L 98-107 saja=434) CO2 (BEAKER) (test kdkp=863) 20 meq/L 22-29 BLOOD UREA NITROGEN (BEAKER) 55 mg/dL 7-21 (test usqg=296) CREATININE (BEAKER) (test 2.83 mg/dL 0.57-1.25 Specimen moderately hemolyzed rplp=324) GLUCOSE RANDOM (BEAKER) 193 mg/dL 70-105 (test imup=668) CALCIUM (BEAKER) (test 8.6 mg/dL 8.4-10.2 tvab=146) EGFR (BEAKER) (test INSUFFICIENT CLINICAL DATA TO vrwj=1166) CALCULATE ESTIMATED GFR. RAD, CHEST, 1 VIEW, NON [id number] 12:19:00Reason for exam:->sobShould this be performed at the bedside?->YesFINAL REPORT CLINICAL HISTORY: sob TECHNIQUE: 1 view of the chest. COMPARISON: 06/27/2019 IMPRESSION: Bilateral lower lung bandlike opacities are unchanged. There is no significant pleural fluid. The cardiomediastinal silhouette is magnified by technique. Signed: Antolin Jarrell MDReport Verified Date/Time: 06/28/2019 12:19: 20 Reading Location: [facility] Reading Room B-TYPE NATRIURETIC FACTOR (BNP)2019-06-28 12:17:00 Test Item Value Reference Range Comments B-TYPE NATRIURETIC PEPTIDE (BEAKER) (test 1699 pg/mL 0-100 ocwi=038) BLOOD GAS, [id number] 11:45:00 Test Item Value Reference Range Comments PH ARTERIAL (BEAKER) (test tmyy=950) 7.45 7.35-7.45 PCO2 ARTERIAL (BEAKER) (test frxk=658) 33 mmHg 35-45 PO2 ARTERIAL (BEAKER) (test yjir=692) 66 mmHg 80-90 O2 SATURATION ARTERIAL (BEAKER) (test aalg=243) 94.5 % 96.0-97.0 HCO3 ARTERIAL (BEAKER) (test qaot=914) 22 mmol/L 21-29 BASE EXCESS ARTERIAL (BEAKER) (test amno=724) -1.0 mmol/L -2.0-3.0 PATIENT TEMPERATURE (BEAKER) (test ckpg=5061) 36.4 C FIO2 (BEAKER) (test jcws=4371) 30.0 % RAD, ABDOMEN/KUB, 1 VIEW [id number] 10:06:00Reason for exam:->abdominal distentionFINAL REPORT EXAM: AP [...] MDReport Verified Date/Time: 06/28/2019 10:06:41 Reading Location: [facility] Mammo Reading Room 10: 06AMBASIC METABOLIC [id number] 06:46:00 Test Item Value Reference Range Comments SODIUM (BEAKER) (test 134 meq/L 136-145 dojm=886) POTASSIUM (BEAKER) (test 3.9 meq/L 3.5-5.1 Specimen slightly hemolyzed mksm=601) CHLORIDE (BEAKER) (test 101 meq/L 98-107 xotk=170) CO2 (BEAKER) (test vacd=628) 18 meq/L 22-29 BLOOD UREA NITROGEN (BEAKER) 53 mg/dL 7-21 (test ldkf=931) CREATININE (BEAKER) (test 2.69 mg/dL 0.57-1.25 Specimen slightly hemolyzed qlis=711) GLUCOSE RANDOM (BEAKER) 190 mg/dL 70-105 (test suyn=223) CALCIUM (BEAKER) (test 8.6 mg/dL 8.4-10.2 zduw=761) EGFR (BEAKER) (test INSUFFICIENT CLINICAL DATA TO ohka=9680) CALCULATE ESTIMATED GFR. [id number] 06:44:00 Test Item Value Reference Range Comments MAGNESIUM (BEAKER) (test 1.7 mg/dL 1.6-2.6 Specimen slightly hemolyzed humy=921) U/S, RENAL, [id number] 04:41:00Reason for exam:->AKIFINAL REPORT U/S, RENAL, COMPLETEUltrasound [...] MCMANUS MD on 06/28/2019 04:41 AMBASIC METABOLIC [id number] 22:01:00 Test Item Value Reference Range Comments SODIUM (BEAKER) (test 131 meq/L 136-145 thmp=054) POTASSIUM (BEAKER) (test 4.1 meq/L 3.5-5.1 Specimen moderately hemolyzed jfva=510) CHLORIDE (BEAKER) (test 102 meq/L 98-107 fdnq=313) CO2 (BEAKER) (test rwkl=238) 15 meq/L 22-29 BLOOD UREA NITROGEN (BEAKER) 46 mg/dL 7-21 (test japj=089) CREATININE (BEAKER) (test 2.40 mg/dL 0.57-1.25 Specimen moderately hemolyzed sbpr=131) GLUCOSE RANDOM (BEAKER) 279 mg/dL 70-105 (test jntq=618) CALCIUM (BEAKER) (test 7.6 mg/dL 8.4-10.2 pocx=479) EGFR (BEAKER) (test INSUFFICIENT CLINICAL DATA TO ncle=9553) CALCULATE ESTIMATED GFR. OSMOLALITY, [id number] 21:57:00 Test Item Value Reference Range Comments OSMOLALITY URINE (BEAKER) (test bxbn=344) 309 mOsm/kg 40-1,400 PROTEIN, RANDOM [id number] 21:57:00 Test Item Value Reference Range Comments PROTEIN, URINE (BEAKER) (test oodu=6680) < mg/dL 0-14 CREATININE, RANDOM [id number] 21:52:00 Test Item Value Reference Range Comments CREATININE URINE (BEAKER) (test ecuo=289) 14.2 mg/dL Reference Range: No NormalsSODIUM, RANDOM [id number] 21:52:00 Test Item Value Reference Range Comments SODIUM URINE (BEAKER) (test yuep=605) 105 meq/L Reference Range: No NormalsURINALYSIS W/ [id number] 21:47:00 Test Item Value Reference Range Comments COLOR (BEAKER) (test lpzj=504) Light Yellow CLARITY (BEAKER) (test umcq=530) Clear SPECIFIC GRAVITY UA (BEAKER) (test rzzs=974) 1.006 1.001-1.035 PH UA (BEAKER) (test lizz=752) 5.0 5.0-8.0 PROTEIN UA (BEAKER) (test vnph=877) Negative Negative GLUCOSE UA (BEAKER) (test wxis=457) Negative Negative KETONES UA (BEAKER) (test sdhw=367) Negative Negative BILIRUBIN UA (BEAKER) (test wbuj=858) Negative Negative BLOOD UA (BEAKER) (test fpzp=230) Negative Negative NITRITE UA (BEAKER) (test freo=945) Negative Negative LEUKOCYTE ESTERASE UA (BEAKER) (test xsue=053) Large Negative UROBILINOGEN UA (BEAKER) (test uofx=000) 0.2 mg/dL 0.2-1.0 RBC UA (BEAKER) (test mecw=253) 1 /HPF WBC UA (BEAKER) (test enom=060) 9 /HPF BACTERIA (BEAKER) (test zsuv=424) Occasional HYALINE CASTS (BEAKER) (test jcsy=980) 2 /LPF GRANULAR CASTS (BEAKER) (test ymzh=439) 5 /LPF YEAST (BEAKER) (test edad=6080) Occasional SOURCE(BEAKER) (test ypwf=7808) POCT-GLUCOSE [id number] 18:42:00 Test Item Value Reference Range Comments POC-GLUCOSE METER (BEAKER) 203 mg/dL 70-110 TESTED AT [facility] [address] [place] [address] (test tdmb=8525) [facility] [address] B-TYPE NATRIURETIC FACTOR (BNP)2019-06-27 18:16:00 Test Item Value Reference Range Comments B-TYPE NATRIURETIC PEPTIDE (BEAKER) (test 2545 pg/mL 0-100 kpck=163) BASIC METABOLIC [id number] 18:12:00 Test Item Value Reference Range Comments SODIUM (BEAKER) (test 135 meq/L 136-145 ofpd=204) POTASSIUM (BEAKER) (test 4.7 meq/L 3.5-5.1 Specimen slightly hemolyzed bper=086) CHLORIDE (BEAKER) (test 105 meq/L 98-107 itaj=611) CO2 (BEAKER) (test boaj=381) 18 meq/L 22-29 BLOOD UREA NITROGEN (BEAKER) 46 mg/dL 7-21 (test hzya=423) CREATININE (BEAKER) (test 2.43 mg/dL 0.57-1.25 Specimen slightly hemolyzed ehts=581) GLUCOSE RANDOM (BEAKER) 197 mg/dL 70-105 (test ossq=593) CALCIUM (BEAKER) (test 8.5 mg/dL 8.4-10.2 kyaa=024) EGFR (BEAKER) (test INSUFFICIENT CLINICAL DATA TO bwax=4418) CALCULATE ESTIMATED GFR. LACTIC ACID, [id number] 18:06:00 Test Item Value Reference Range Comments LACTATE BLOOD ARTERIAL (2) 1.6 mmol/L 0.5-2.2 Specimen slightly hemolyzed (BEAKER) (test bcpz=6757) BLOOD GAS, [id number] 15:46:00 Test Item Value Reference Range Comments PH ARTERIAL (BEAKER) (test iroj=438) 7.35 7.35-7.45 PCO2 ARTERIAL (BEAKER) (test mhqs=010) 37 mmHg 35-45 PO2 ARTERIAL (BEAKER) (test cxft=828) 83 mmHg 80-90 O2 SATURATION ARTERIAL (BEAKER) (test pdvd=050) 95.8 % 96.0-97.0 HCO3 ARTERIAL (BEAKER) (test xizy=155) 20 mmol/L 21-29 BASE EXCESS ARTERIAL (BEAKER) (test xeua=906) -5.1 mmol/L -2.0-3.0 PATIENT TEMPERATURE (BEAKER) (test rzoo=2692) 37.0 C FIO2 (BEAKER) (test yewg=9807) 50.0 % RAD, CHEST, 1 VIEW, NON [id number] 15:01:00Reason for exam:->sobShould this be performed at [...] MDReport Verified Date/Time: 06/27/2019 15:01:18 Reading Location: [facility] B1 C013X OrthoConsult Reading Room BLOOD GAS, [id number] 14:35:00 Test Item Value Reference Range Comments PH ARTERIAL (BEAKER) (test gosr=084) 7.29 7.35-7.45 PCO2 ARTERIAL (BEAKER) (test glae=726) 46 mmHg 35-45 PO2 ARTERIAL (BEAKER) (test qpgi=454) 115 mmHg 80-90 O2 SATURATION ARTERIAL (BEAKER) (test onut=572) 97.7 % 96.0-97.0 HCO3 ARTERIAL (BEAKER) (test grbu=392) 21 mmol/L 21-29 BASE EXCESS ARTERIAL (BEAKER) (test ojeu=781) -5.5 mmol/L -2.0-3.0 PATIENT TEMPERATURE (BEAKER) (test eiql=7163) 36.8 C FIO2 (BEAKER) (test sdxe=4172) 100.0 % POCT-GLUCOSE [id number] 12:41:00 Test Item Value Reference Range Comments POC-GLUCOSE METER (BEAKER) 203 mg/dL 70-110 TESTED AT [facility] [address] (test dhbu=3743) [facility] [address] RAPID INFLUENZA A&B [id number] 10:04:00 Test Item Value Reference Range Comments RAPID INFLUENZA A AG (BEAKER) (test Negative Negative, Inconclusive afbh=8564) RAPID INFLUENZA B AG (BEAKER) (test Negative Negative, Inconclusive kvjz=3037) CBC W/PLT COUNT & AUTO [id number] 07:43:00 Test Item Value Reference Range Comments WHITE BLOOD CELL COUNT (BEAKER) (test cbqk=654) 16.7 K/ L 3.5-10.5 RED BLOOD CELL COUNT (BEAKER) (test cbjg=606) 4.81 M/ L 3.93-5.22 HEMOGLOBIN (BEAKER) (test obuk=584) 14.4 GM/DL 11.2-15.7 HEMATOCRIT (BEAKER) (test vzwb=281) 45.5 % 34.1-44.9 MEAN CORPUSCULAR VOLUME (BEAKER) (test diaa=367) 94.6 fL 79.4-94.8 MEAN CORPUSCULAR HEMOGLOBIN (BEAKER) (test 29.9 pg 25.6-32.2 vnwy=518) MEAN CORPUSCULAR HEMOGLOBIN CONC (BEAKER) (test 31.6 GM/DL 32.2-35.5 cgze=280) RED CELL DISTRIBUTION WIDTH (BEAKER) (test 15.0 % 11.7-14.4 qakq=260) PLATELET COUNT (BEAKER) (test snfs=039) 182 K/CU MM 150-450 MEAN PLATELET VOLUME (BEAKER) (test yeqs=817) 9.6 fL 9.4-12.3 NUCLEATED RED BLOOD CELLS (BEAKER) (test 0 /100 WBC 0-0 uaxw=671) (CELLAVISION MANUAL DIFF)2019-06-27 07:43:00 Test Item Value Reference Range Comments NEUTROPHILS - REL (CELLAVISION)(BEAKER) (test 82 % gpqn=0517) LYMPHOCYTES - REL (CELLAVISION)(BEAKER) (test 5 % anuo=3433) MONOCYTES - REL (CELLAVISION)(BEAKER) (test 3 % flse=0312) BANDS - REL (CELLAVISION)(BEAKER) (test 10 % 0-10 gqhb=7572) NEUTROPHILS - ABS (CELLAVISION)(BEAKER) (test 13.69 K/ul 1.56-6.13 ufnt=1894) LYMPHOCYTES - ABS (CELLAVISION)(BEAKER) (test 0.84 K/ul 1.18-3.74 jwhj=3222) MONOCYTES - ABS (CELLAVISION)(BEAKER) (test 0.50 K/uL 0.24-0.36 cizh=2345) BANDS - ABS (CELLAVISION)(BEAKER) (test 1.67 K/uL 0.00-0.80 idna=7159) TOTAL COUNTED (BEAKER) (test ugub=0381) 100 RBC MORPHOLOGY (BEAKER) (test uewp=347) Normal WBC MORPHOLOGY (BEAKER) (test vhng=874) Normal PLT MORPHOLOGY (BEAKER) (test bndg=276) Normal ARTIFACT (CELLAVISION)(BEAKER) (test jhrz=4731) Present PLATELET CONCENTRATION (CELLAVISION)(BEAKER) Adequate (test bqyt=7443) Received comment: User comments: Slide comments:POCT-GLUCOSE [id number] 06: 24:00 Test Item Value Reference Range Comments POC-GLUCOSE METER (BEAKER) 161 mg/dL 70-110 TESTED AT [address] (test rqcv=2695) [facility] [address] TROPONIN [id number] 05:49:00 Test Item Value Reference Range Comments TROPONIN I (BEAKER) (test rtbt=877) 68.65 ng/mL 0.00-0.03 Troponin I (TnI) levels [...] acute neurological disease, and persistent tachyarrhythmia.BASIC METABOLIC [id number] 04:54:00 Test Item Value Reference Range Comments SODIUM (BEAKER) (test 136 meq/L 136-145 vdmp=353) POTASSIUM (BEAKER) (test 4.1 meq/L 3.5-5.1 Specimen slightly hemolyzed szue=785) CHLORIDE (BEAKER) (test 105 meq/L 98-107 jelk=154) CO2 (BEAKER) (test dmmg=579) 21 meq/L 22-29 BLOOD UREA NITROGEN (BEAKER) 42 mg/dL 7-21 (test iapf=241) CREATININE (BEAKER) (test 2.44 mg/dL 0.57-1.25 Specimen slightly hemolyzed daxn=554) GLUCOSE RANDOM (BEAKER) 165 mg/dL 70-105 (test blgx=060) CALCIUM (BEAKER) (test 8.1 mg/dL 8.4-10.2 apcd=869) EGFR (BEAKER) (test INSUFFICIENT CLINICAL DATA TO sato=1427) CALCULATE ESTIMATED GFR. [id number] 04:52:00 Test Item Value Reference Range Comments MAGNESIUM (BEAKER) (test 1.9 mg/dL 1.6-2.6 Specimen slightly hemolyzed zfwk=982) POCT-GLUCOSE [id number] 00:41:00 Test Item Value Reference Range Comments POC-GLUCOSE METER (BEAKER) 144 mg/dL 70-110 TESTED AT [address] (test fuhz=5683) [facility] [address] CBC (HEMOGRAM ONLY)2019-06-26 23:34:00 Test Item Value Reference Range Comments WHITE BLOOD CELL COUNT (BEAKER) (test fnod=507) 15.9 K/ L 3.5-10.5 RED BLOOD CELL COUNT (BEAKER) (test sdye=862) 4.21 M/ L 3.93-5.22 HEMOGLOBIN (BEAKER) (test wnsc=451) 12.8 GM/DL 11.2-15.7 HEMATOCRIT (BEAKER) (test uqeh=522) 40.1 % 34.1-44.9 MEAN CORPUSCULAR VOLUME (BEAKER) (test cwjc=735) 95.2 fL 79.4-94.8 MEAN CORPUSCULAR HEMOGLOBIN (BEAKER) (test 30.4 pg 25.6-32.2 ttqa=540) MEAN CORPUSCULAR HEMOGLOBIN CONC (BEAKER) (test 31.9 GM/DL 32.2-35.5 lpys=339) RED CELL DISTRIBUTION WIDTH (BEAKER) (test 15.1 % 11.7-14.4 atrj=812) PLATELET COUNT (BEAKER) (test kzxc=629) 186 K/CU MM 150-450 MEAN PLATELET VOLUME (BEAKER) (test bjgt=398) 9.4 fL 9.4-12.3 NUCLEATED RED BLOOD CELLS (BEAKER) (test 0 /100 WBC 0-0 wuwz=194) POCT-GLUCOSE [id number] 18:37:00 Test Item Value Reference Range Comments POC-GLUCOSE METER (BEAKER) 134 mg/dL 70-110 TESTED AT [address] (test koyw=7862) [facility] [address] RAD, CHEST, 1 VIEW, NON [id number] 13:19:00Reason for exam:->respiratory failure/COPD intubatedFINAL REPORT History: [...] MDReport Verified Date/Time: 06/26/2019 13:19:00 Reading Location: [address] Ortho Consult Reading Room CBC W/PLT COUNT & AUTO [id number] 11:40:00 Test Item Value Reference Range Comments WHITE BLOOD CELL COUNT (BEAKER) (test kszj=612) 17.0 K/ L 3.5-10.5 RED BLOOD CELL COUNT (BEAKER) (test swde=405) 4.44 M/ L 3.93-5.22 HEMOGLOBIN (BEAKER) (test isft=936) 13.4 GM/DL 11.2-15.7 HEMATOCRIT (BEAKER) (test ozpw=420) 42.0 % 34.1-44.9 MEAN CORPUSCULAR VOLUME (BEAKER) (test eabt=771) 94.6 fL 79.4-94.8 MEAN CORPUSCULAR HEMOGLOBIN (BEAKER) (test 30.2 pg 25.6-32.2 jlfz=937) MEAN CORPUSCULAR HEMOGLOBIN CONC (BEAKER) (test 31.9 GM/DL 32.2-35.5 exxw=457) RED CELL DISTRIBUTION WIDTH (BEAKER) (test 15.0 % 11.7-14.4 keiz=669) PLATELET COUNT (BEAKER) (test flww=571) 209 K/CU MM 150-450 MEAN PLATELET VOLUME (BEAKER) (test aqnz=134) 9.7 fL 9.4-12.3 NUCLEATED RED BLOOD CELLS (BEAKER) (test 0 /100 WBC 0-0 tkpt=671) NEUTROPHILS RELATIVE PERCENT (BEAKER) (test 92 % jgav=168) LYMPHOCYTES RELATIVE PERCENT (BEAKER) (test 3 % tfzt=535) MONOCYTES RELATIVE PERCENT (BEAKER) (test 4 % xlfd=680) EOSINOPHILS RELATIVE PERCENT (BEAKER) (test 0 % qoxs=438) BASOPHILS RELATIVE PERCENT (BEAKER) (test 0 % yncm=820) NEUTROPHILS ABSOLUTE COUNT (BEAKER) (test 15.68 K/ L 1.56-6.13 apbc=237) LYMPHOCYTES ABSOLUTE COUNT (BEAKER) (test 0.52 K/ L 1.18-3.74 pdqw=192) MONOCYTES ABSOLUTE COUNT (BEAKER) (test 0.71 K/ L 0.24-0.36 lnil=491) EOSINOPHILS ABSOLUTE COUNT (BEAKER) (test 0.00 K/ L 0.04-0.36 mqix=279) BASOPHILS ABSOLUTE COUNT (BEAKER) (test 0.03 K/ L 0.01-0.08 nisk=394) IMMATURE GRANULOCYTES-RELATIVE PERCENT (BEAKER) 1 % 0-1 (test rwgk=7382) POCT-GLUCOSE [id number] 11:29:00 Test Item Value Reference Range Comments POC-GLUCOSE METER (BEAKER) 241 mg/dL 70-110 TESTED AT [facility] [address] (test nwlt=2469) [place] [address] CBC W/PLT COUNT & AUTO [id number] 10:15:00 Test Item Value Reference Range Comments WHITE BLOOD CELL COUNT (BEAKER) (test afew=373) 17.5 K/ L 3.5-10.5 RED BLOOD CELL COUNT (BEAKER) (test drnv=755) 4.52 M/ L 3.93-5.22 HEMOGLOBIN (BEAKER) (test jtkc=676) 13.7 GM/DL 11.2-15.7 HEMATOCRIT (BEAKER) (test yfzd=263) 44.1 % 34.1-44.9 MEAN CORPUSCULAR VOLUME (BEAKER) (test wjlc=639) 97.6 fL 79.4-94.8 MEAN CORPUSCULAR HEMOGLOBIN (BEAKER) (test 30.3 pg 25.6-32.2 exty=248) MEAN CORPUSCULAR HEMOGLOBIN CONC (BEAKER) (test 31.1 GM/DL 32.2-35.5 ituh=610) RED CELL DISTRIBUTION WIDTH (BEAKER) (test 14.9 % 11.7-14.4 ukny=985) PLATELET COUNT (BEAKER) (test ahhl=108) 219 K/CU MM 150-450 MEAN PLATELET VOLUME (BEAKER) (test fnwz=664) 9.6 fL 9.4-12.3 NUCLEATED RED BLOOD CELLS (BEAKER) (test 0 /100 WBC 0-0 drlf=298) (CELLAVISION MANUAL DIFF)2019-06-26 10:15:00 Test Item Value Reference Range Comments NEUTROPHILS - REL (CELLAVISION)(BEAKER) (test 86 % ptbi=3939) LYMPHOCYTES - REL (CELLAVISION)(BEAKER) (test 2 % lwgn=7840) MONOCYTES - REL (CELLAVISION)(BEAKER) (test 2 % lxbv=1439) METAMYELOCYTES - REL (CELLAVISION)(BEAKER) (test 1 % 0-0 qdyd=4386) BANDS - REL (CELLAVISION)(BEAKER) (test 9 % 0-10 mwrm=2680) NEUTROPHILS - ABS (CELLAVISION)(BEAKER) (test 15.05 K/ul 1.56-6.13 cxzk=0057) LYMPHOCYTES - ABS (CELLAVISION)(BEAKER) (test 0.35 K/ul 1.18-3.74 uiau=7547) MONOCYTES - ABS (CELLAVISION)(BEAKER) (test 0.35 K/uL 0.24-0.36 gnmr=0052) METAMYELOCYTES - ABS (CELLAVISION)(BEAKER) (test 0.18 K/uL 0.00-0.00 opfi=3076) BANDS - ABS (CELLAVISION)(BEAKER) (test 1.58 K/uL 0.00-0.80 pagb=6141) TOTAL COUNTED (BEAKER) (test bhlh=5756) 100 WBC MORPHOLOGY (BEAKER) (test dhmi=080) Normal PLT MORPHOLOGY (BEAKER) (test oeeb=867) Normal HYPOCHROMIA (BEAKER) (test xmep=847) 1+ few ANISOCYTOSIS (BEAKER) (test iqew=122) 1+ few MACROCYTES (BEAKER) (test kfhq=715) 1+ few POIKILOCYTES (BEAKER) (test gvhn=552) 1+ few JOSSY CELLS (BEAKER) (test cvpr=383) 1+ few ARTIFACT (CELLAVISION)(BEAKER) (test ipdc=1706) Present PLATELET CONCENTRATION (CELLAVISION)(BEAKER) Adequate (test fuzc=0474) Received comment: User comments: Slide comments:HEMOGLOBIN [id number] 08:52: 00 Test Item Value Reference Range Comments HEMOGLOBIN A1C (BEAKER) (test gmii=178) 6.9 % 4.3-6.1 RAD, ABDOMEN/KUB, 1 VIEW [id number] 08:28:00Reason for exam:->ileusShould this be performed at [...] MDReport Verified Date/Time: 06/26/2019 08:28:56 Reading Location: [facility] C013V Neuro Reading Room POCT-GLUCOSE [id number] 07:49:00 Test Item Value Reference Range Comments POC-GLUCOSE METER (BEAKER) 275 mg/dL 70-110 TESTED AT [facility] [address] (test hczu=8181) [facility] [address] TROPONIN [id number] 06:57:00 Test Item Value Reference Range Comments TROPONIN I (BEAKER) (test ulqx=249) 432.80 ng/mL 0.00-0.03 Troponin I (TnI) levels [...] acute neurological disease, and persistent tachyarrhythmia.BLOOD GAS, [id number] 06:30:00 Test Item Value Reference Range Comments PH ARTERIAL (BEAKER) (test nrnw=534) 7.31 7.35-7.45 PCO2 ARTERIAL (BEAKER) (test ecqm=766) 42 mmHg 35-45 PO2 ARTERIAL (BEAKER) (test lfse=158) 90 mmHg 80-90 O2 SATURATION ARTERIAL (BEAKER) (test blkb=184) 96.5 % 96.0-97.0 HCO3 ARTERIAL (BEAKER) (test mpsg=527) 21 mmol/L 21-29 BASE EXCESS ARTERIAL (BEAKER) (test aibz=594) -5.5 mmol/L -2.0-3.0 PATIENT TEMPERATURE (BEAKER) (test zyut=4794) 36.4 C FIO2 (BEAKER) (test jmql=0199) 60.0 % B-TYPE NATRIURETIC FACTOR (BNP)2019-06-26 06:22:00 Test Item Value Reference Range Comments B-TYPE NATRIURETIC PEPTIDE (BEAKER) (test 1525 pg/mL 0-100 jhoq=001) [id number] 06:16:00 Test Item Value Reference Range Comments MAGNESIUM (BEAKER) (test wkan=560) 1.8 mg/dL 1.6-2.6 LIPID [id number] 06:16:00 Test Item Value Reference Range Comments TRIGLYCERIDES (BEAKER) (test sels=647) 61 mg/dL CHOLESTEROL (BEAKER) (test wmfk=726) 179 mg/dL HDL CHOLESTEROL (BEAKER) (test lwbg=902) 34 mg/dL LDL CHOLESTEROL CALCULATED (BEAKER) (test 133 mg/dL zhjc=460) Triglyceride Reference Range: Low Risk <150 Borderline 150- 199 High Risk 200-499 Very High Risk >=500Cholesterol Reference Range: Low Risk <200 Borderline 200-239 High Risk > 240HDL Cholesterol Reference Range: Low Risk >=60 High Risk <40LDL Cholesterol Reference Range: Optimal <100 Near Optimal 100-129 Borderline 130-159 High 160-189 Very High >=190BASIC METABOLIC [id number] 06:16:00 Test Item Value Reference Range Comments SODIUM (BEAKER) (test 132 meq/L 136-145 uven=219) POTASSIUM (BEAKER) (test 4.3 meq/L 3.5-5.1 wrek=530) CHLORIDE (BEAKER) (test 103 meq/L 98-107 nxkr=659) CO2 (BEAKER) (test npsc=925) 20 meq/L 22-29 BLOOD UREA NITROGEN (BEAKER) 28 mg/dL 7-21 (test lktm=789) CREATININE (BEAKER) (test 2.17 mg/dL 0.57-1.25 omvm=215) GLUCOSE RANDOM (BEAKER) 274 mg/dL 70-105 (test famd=225) CALCIUM (BEAKER) (test 7.6 mg/dL 8.4-10.2 tnyn=424) EGFR (BEAKER) (test INSUFFICIENT CLINICAL DATA TO rwts=1372) CALCULATE ESTIMATED GFR. [id number] 04:05:00 Test Item Value Reference Range Comments ACTIVATED CLOTTING TIME 301 sec Reference Range: 74-137 (BEAKER) (test yjnr=775) seconds, Baseline/TESTED AT [facility] [address] [facility] [address] [id number] 03:52:00 Test Item Value Reference Range Comments ACTIVATED CLOTTING TIME 290 sec Reference Range: 74-137 (BEAKER) (test ysnu=066) seconds, Baseline/TESTED AT [place] [address] [id number] 03:44:00 Test Item Value Reference Range Comments ACTIVATED CLOTTING TIME 246 sec Reference Range: 74-137 (BEAKER) (test xxkr=822) seconds, Baseline/TESTED AT [place] [address] [id number] 03:44:00 Test Item Value Reference Range Comments ACTIVATED CLOTTING TIME 202 sec Reference Range: 74-137 (BEAKER) (test ymfd=525) seconds, Baseline/TESTED AT [place] [address]
[2019-09-13 14:59] LABS: Absolute Lymphocytes (CBC) 0.9 K/uL (0.7-4.9); Basophils % 0.9 % (0-1.3); Hematocrit 35.5 % (36.0-45.0); Lymphocytes % 8.7 % (15.3-44.8); MPV 8.8 fL (7.6-11.3); RBC Red Blood Cell Count 3.82 M/uL (3.86-4.86)
[2019-09-13 15:08] LABS: Protime INR 1.18
--- NOTE | 2019-09-13 15:18 | RAD REPORT ---
EXAM DESCRIPTION: CT - Abdomen Pelvis W Contrast - 09/13/2019 2:54 pm CLINICAL HISTORY: Abdominal pain COMPARISON: June 2019 TECHNIQUE: Computed axial tomography of the abdomen pelvis was obtained. 100 cc Isovue-300 was admin istered intravenously. Oral contrast was not requested which limits evaluation of bowel. All CT scans are performed using dose optimization technique as appropriate and may include automated exposure control or mA/KV adjustment according to patient size. FINDINGS: 3.4 centimeter abdominal aortic aneurysm AP diameter without significant change. Abdominal aortic contains small to moderate amount of thrombus. Ulcerating plaque is present. Left renal and c ommon iliac stents in place Low-density measuring several centimeters is present within the spleen extending peripherally probabl y infarction. The gallbladder is mildly distended. The liver,, right adrenal and kidneys appear unremarkable. Small left adrenal adenoma is suspected. The wall of the cecum appears mildly thickened IMPRESSION: 3.4 centimeter abdominal aortic aneurysm without significant change. Ulcerating plaque i s noted. 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
[2019-09-13 15:21] LABS: Bilirubin Direct 0.1 mg/dL (0-0.2); Bilirubin Total 0.4 mg/dL (0.2-1.0); CKMB Creatine Kinase MB 1.8 ng/mL (0.3-3.6); Protein, Total 6.5 g/dL (6.4-8.2); Troponin (Emerg Dept Use Only) 0.13 ng/mL (0.0-0.045)
[2019-09-13 15:24] LABS: Potassium 2.6 mmol/L (3.5-5.1)
--- NOTE | 2019-09-13 15:57 | RAD REPORT ---
EXAM DESCRIPTION: Helene Single View09/13/2019 3:03 pm CLINICAL HISTORY: Congestion COMPARISON: June 2019 FINDINGS: An area of subsegmental atelectasis is present the left lung base. The lungs appear clear of acute infiltrate. The heart is mildly enlarged. Central venous catheter remains in place
[2019-09-13] MEDS ORDERED: KCL 20 MEQ/100 mL IVPB 20 MEQ/100 ML BAG IV ONE (15:59)
--- NOTE | 2019-09-13 16:17 | ER ---
Nurse's Notes [facility] Name: Cindi Mccallum Age: 69 yrs Sex: Female : 1950 Arrival Date: 09/13/2019 Time: 13:58 Bed 13 Private MD: Diagnosis: Acute pulmonary edema;Left sided colitis;Other disorders of electrolyte and fluid balance, not elsewhere classified Presentation: 09/13 14:03 Presenting complaint: EMS states: called out for dialysis catheter being pulled out, em reports it has been out since Friday, was supposed to have dialysis today but called the nurse off, denies chest pain, report shortness of breath. Transition of care: patient was not received from another setting of care. Onset of symptoms was September 13, 2019. Risk Assessment: Do you want to hurt yourself or someone else? Patient reports no desire to harm self or others. Initial Sepsis Screen: Does the patient meet any 2 criteria? HR > 90 bpm. No. Patient's initial sepsis screen is negative. Does the patient have a suspected source of infection? No. Patient's initial sepsis screen is negative. Care prior to arrival: None. 14:03 Method Of Arrival: EMS: [facility] em 14:03 Acuity: PRATIK 2 ss Historical: - Allergies: 14:08 clopidogrel bisulfate; em - Home Meds: 15:33 Eliquis 2.5 mg Oral tab 1 tab 2 times per day [Active]; famotidine 20 mg Oral tab 1 tab em every 6 hours [Active]; zinc sulfate 220 mg Oral tab [Active]; carvedilol 25 mg oral tab [Active]; BRILINTA 90 mg oral tab [Active]; folic acid 1 mg Oral tab [Active]; furosemide 40 mg Oral tab 1 tab once daily [Active]; Dialyvite oral oral [Active]; hydralazine 25 mg Oral tab 1 tab 3 TIMES A DAY [Active]; metoclopramide HCl 5 mg oral tab [Active]; Colace 100 mg oral cap [Active]; sucralfate 1 gram Oral tab [Active]; Januvia 25 mg Oral tab daily [Active]; isosorbide dinitrate 10 mg Oral tab 1 tab [Active]; atorvastatin 40 mg Oral tab 1 tab once daily [Active]; amiodarone 200 mg Oral tab 1 tab once daily [Active]; Spiriva with HandiHaler 18 mcg inhalation CpDv 1 cap once daily [Active]; symbicort inhaler [Active]; - PMHx: 14:08 Atrial Fib; COPD; Hypertension; em 14:23 Dialysis; em - PSHx: 14:08 partial hysterectomy; Appendectomy; em - Immunization history:: Adult Immunizations up to date. - Social history:: Smoking status: Patient/guardian denies using tobacco, Patient/guardian denies using alcohol, street drugs, The patient lives with family. - Ebola Screening: : Patient negative for fever greater than or equal to 101.5 degrees Fahrenheit, and additional compatible Ebola Virus Disease symptoms Patient denies exposure to infectious person Patient denies travel to an Ebola-affected area in the 21 days before illness onset No symptoms or risks identified at this time. - Family history:: not pertinent. Screenin:08 Abuse screen: Denies threats or abuse. Nutritional screening: No deficits noted. em Tuberculosis screening: No symptoms or risk factors identified. Fall Risk None identified. Assessment: 14:08 General: Appears in no apparent distress. comfortable, Behavior is calm, cooperative, em Denies fever. Pain: Denies pain. Neuro: Level of Consciousness is awake, alert, obeys commands, Oriented to person, place, time, situation, Appropriate for age. Cardiovascular: Reports shortness of breath, Denies chest pain, nausea, vomiting, Capillary refill < 3 seconds Patient's skin is warm and dry. dialysis catheter noted to right upper chest, no redness or drainage noted, sutured in place . Rhythm is atrial fibrillation with rapid ventricular response. Respiratory: Airway is patent Respiratory effort is even, unlabored, Respiratory pattern is regular, symmetrical. GI: Abdomen is flat, Abd is soft X 4 quads Abdomen is tender to palpation in right lower quadrant and left lower quadrant. : Reports burning with urination. Derm: Skin is fragile, has skin tears on skin tear noted to right forearm, dressed and bandaged with nonadherent dressing and Kerlix. Musculoskeletal: Capillary refill < 3 seconds, Range of motion: intact in all extremities. 14:15 General: The previous assessment is accurate. Call light remains within reach. . ss 14:45 Reassessment: Patient appears in no apparent distress at this time. wheeled to CT via em stretcher. 15:10 Reassessment: Patient appears in no apparent distress at this time. Patient and/or em family updated on plan of care and expected duration. Pain level reassessed. Patient is alert, oriented x 3, equal unlabored respirations, skin warm/dry/pink. 16:08 Reassessment: Patient appears in no apparent distress at this time. Patient and/or em family updated on plan of care and expected duration. Pain level reassessed. Patient is alert, oriented x 3, equal unlabored respirations, skin warm/dry/pink. 17:15 Reassessment: hospitalist at bedside discussing POC. em 18:00 Reassessment: Patient appears in no apparent distress at this time. Patient states em feeling better. Patient states symptoms have improved. Vital Signs: 14:08 BP 158 / 85; Pulse 143; Resp 20; Temp 97.9(O); Pulse Ox 95% on R/A; Weight 70.76 kg; em Height 5 ft. 6 in. (167.64 cm); Pain 0/10; 15:13 BP 151 / 101; Pulse 129; Resp 24; Pulse Ox 94% on R/A; Pain 0/10; em 16:07 BP 160 / 84; Pulse 133; Resp 24; Pulse Ox 95% on R/A; Pain 0/10; em 17:22 BP 160 / 92; Pulse 118; Resp 26; Pulse Ox 100% on R/A; em 18:05 BP 127 / 75; Pulse 101; Resp 18; Pulse Ox 100% on R/A; Pain 0/10; em 14:08 Body Mass Index 25.18 (70.76 kg, 167.64 cm) em ED Course: 13:58 Patient arrived in ED. ss 14:01 Alvaro Ochoa MD is Attending Physician. ma2 14:02 Chao Frausto LVN is Primary Nurse. em 14:07 Triage completed. ss 14:08 Arm band placed on. em 14:08 Patient has correct armband on for positive identification. Placed in gown. Bed in low em position. Call light in reach. Side rails up X2. Adult w/ patient. Pulse ox on. NIBP on. 14:47 Initial lab(s) drawn, by me, sent to lab. Inserted saline lock: 20 gauge in right em antecubital area, using aseptic technique. Blood collected. 16:11 Chao Frausto LVN is Primary Nurse. em 16:15 Nikko Alcaraz is Hospitalizing Provider. ma2 17:39 EKG done, by ED staff, reviewed by Alvaro Ochoa MD. [facility] 18:24 No provider procedures requiring assistance completed. Patient admitted, IV remains in em place. Administered Medications: 15:40 Drug: Potassium Chloride 10 mEq Route: IV; Rate: calculated rate; Site: right em antecubital; 18:30 Follow up: Response: No adverse reaction; IV Status: Completed infusion; IV Intake: 50mlem 16:33 Drug: Rocephin 1 grams Route: IV; Rate: calculated rate; Site: right antecubital; ss 17:44 Follow up: Response: No adverse reaction; IV Status: Completed infusion; IV Intake: 10mlem 16:40 Drug: Flagyl 500 mg Volume: 100 ml; Route: IVPB; Rate: 200 ml/hr; Infused Over: 30 ss mins; Site: right antecubital; 17:43 Follow up: Response: No adverse reaction; IV Status: Completed infusion; IV Intake: em 100ml 17:53 Drug: Metoprolol 5 mg Route: IVP; Site: right antecubital; ss 18:12 Follow up: Response: No adverse reaction; Marked relief of symptoms; Cardiac rhythm em changed Intake: 17:43 IV: 100ml; Total: 100ml. em 17:44 IV: 10ml; Total: 110ml. em 18:30 IV: 50ml; Total: 160ml. em Outcome: 16:17 Decision to Hospitalize by Provider. ma2 18:24 Admitted to Tele accompanied by tech, via stretcher, room 404, with chart, Report em called to JUAN DIEGO Muñoz 18:24 Condition: good 18:24 Instructed on the need for admit, Demonstrated understanding of instructions. 18:31 Patient left the ED. em Signatures: Chao Frausto LVN LVN em Jojo Nassar RN RN Lenora Wright [facility] Alvaro Ochoa MD MD tx2 Corrections: (The following items were deleted from the chart) 17:23 16:07 BP 160 / 84; Pulse 133bpm; Resp 24bpm; Pulse Ox 95% RA; Pain 5/10; em em
[2019-09-13] MEDS ORDERED: METRONIDAZOLE 500mg IVPB 500 MG/100 ML BAG IV ONE (16:18)
[2019-09-13] MEDS ORDERED: CEFTRIAXONE/SWI 1gm 1 GM/10 ML SYR ONE (16:18)
--- NOTE | 2019-09-13 16:18 | EDPHYS ---
Physician Documentation [facility] Name: Cindi Mccallum Age: 69 yrs Sex: Female : 1950 Arrival Date: 09/13/2019 Time: 13:58 Bed 13 Private MD: ED Physician Alvaro Ochoa HPI: 09/13 16:01 This 69 yrs old Female presents to ER via EMS with complaints of Dialysis ma2 Catheter Problem. 16:01 This 69 yrs old Female presents to ER via EMS with complaints of generalized ma2 weakness and abdominal pain . 16:01 Onset: The symptoms/episode began/occurred gradually, 3 day(s) ago. Associated signs ma2 and symptoms: Pertinent negatives: fever, bleeding at site. The patient has not experienced similar symptoms in the past. she did not get her dialysis today . Historical: - Allergies: 14:08 clopidogrel bisulfate; em - Home Meds: 15:33 Eliquis 2.5 mg Oral tab 1 tab 2 times per day [Active]; famotidine 20 mg Oral tab 1 tab em every 6 hours [Active]; zinc sulfate 220 mg Oral tab [Active]; carvedilol 25 mg oral tab [Active]; BRILINTA 90 mg oral tab [Active]; folic acid 1 mg Oral tab [Active]; furosemide 40 mg Oral tab 1 tab once daily [Active]; Dialyvite oral oral [Active]; hydralazine 25 mg Oral tab 1 tab 3 TIMES A DAY [Active]; metoclopramide HCl 5 mg oral tab [Active]; Colace 100 mg oral cap [Active]; sucralfate 1 gram Oral tab [Active]; Januvia 25 mg Oral tab daily [Active]; isosorbide dinitrate 10 mg Oral tab 1 tab [Active]; atorvastatin 40 mg Oral tab 1 tab once daily [Active]; amiodarone 200 mg Oral tab 1 tab once daily [Active]; Spiriva with HandiHaler 18 mcg inhalation CpDv 1 cap once daily [Active]; symbicort inhaler [Active]; - PMHx: 14:08 Atrial Fib; COPD; Hypertension; em 14:23 Dialysis; em - PSHx: 14:08 partial hysterectomy; Appendectomy; em - Immunization history:: Adult Immunizations up to date. - Social history:: Smoking status: Patient/guardian denies using tobacco, Patient/guardian denies using alcohol, street drugs, The patient lives with family. - Ebola Screening: : Patient negative for fever greater than or equal to 101.5 degrees Fahrenheit, and additional compatible Ebola Virus Disease symptoms Patient denies exposure to infectious person Patient denies travel to an Ebola-affected area in the 21 days before illness onset No symptoms or risks identified at this time. - Family history:: not pertinent. ROS: 16:01 Constitutional: Negative for fever, chills, and weight loss. ma2 16:01 All other systems are negative. Exam: 16:01 Constitutional: This is a well developed, well nourished patient who is awake, alert, ma2 and in no acute distress. Neck: Trachea midline, no thyromegaly or masses palpated, and no cervical lymphadenopathy. Supple, full range of motion without nuchal rigidity, or vertebral point tenderness. No Meningismus. Chest/axilla: right upper chest dialysis catheter in good place. Normal chest wall appearance and motion. Nontender with no deformity. No lesions are appreciated. Cardiovascular: Regular rate and rhythm with a normal S1 and S2. No gallops, murmurs, or rubs. Normal PMI, no JVD. No pulse deficits. Respiratory: Lungs have equal breath sounds bilaterally, rales to auscultation and percussion. No rales, rhonchi or wheezes noted. she has increased RR and work of breathing, no retractions or nasal flaring. Abdomen/GI: Soft, + ttp LLQ abd, with normal bowel sounds. No distension or tympany. No guarding or rebound. MS/ Extremity: Pulses equal, no cyanosis. Neurovascular intact. Full, normal range of motion. Neuro: Awake and alert, GCS 15, oriented to person, place, time, and situation. Cranial nerves II-XII grossly intact. Motor strength 5/5 in all extremities. Sensory grossly intact. Cerebellar exam normal. Normal gait. Vital Signs: 14:08 BP 158 / 85; Pulse 143; Resp 20; Temp 97.9(O); Pulse Ox 95% on R/A; Weight 70.76 kg; em Height 5 ft. 6 in. (167.64 cm); Pain 0/10; 15:13 BP 151 / 101; Pulse 129; Resp 24; Pulse Ox 94% on R/A; Pain 0/10; em 16:07 BP 160 / 84; Pulse 133; Resp 24; Pulse Ox 95% on R/A; Pain 0/10; em 17:22 BP 160 / 92; Pulse 118; Resp 26; Pulse Ox 100% on R/A; em 18:05 BP 127 / 75; Pulse 101; Resp 18; Pulse Ox 100% on R/A; Pain 0/10; em 14:08 Body Mass Index 25.18 (70.76 kg, 167.64 cm) em MDM: 14:02 Patient medically screened. ma2 16:01 Differential diagnosis: colitis, pulmonary edema, ESRD, hypokalemia, needs admission ma2 and emergent HD d/t contrast load. Data reviewed: vital signs, nurses notes, diagnostic data from outside facility. Counseling: I had a detailed discussion with the patient and/or guardian regarding: the historical points, exam findings, and any diagnostic results supporting the discharge/admit diagnosis, the presence of at least one elevated blood pressure reading (>120/80) during this emergency department visit. Response to treatment: the patient's symptoms have mildly improved after treatment. 16:17 ED course: discussed with dr. interiano and dr. mccormack for emergent HD . il2 09/13 14:27 Order name: Bilirubin, Direct ma2 09/13 14:27 Order name: Basic Metabolic Panel il2 09/13 14:27 Order name: Blood Culture Adult (2) il2 09/13 14:27 Order name: CBC with Diff ma2 09/13 14:27 Order name: Ckmb il2 09/13 14:27 Order name: CPK il2 09/13 14:27 Order name: Lactate ma2 09/13 14:27 Order name: LFT's ma2 09/13 14:27 Order name: Lipase ma2 09/13 14:27 Order name: Procalcitonin ma2 09/13 14:27 Order name: Protime (+inr) il2 09/13 14:27 Order name: Ptt, Activated ma2 09/13 14:27 Order name: Troponin (emerg Dept Use Only) il2 09/13 14:27 Order name: Urine Microscopic Only il2 09/13 14:27 Order name: Chest Single View XRAY il2 09/13 14:27 Order name: CT Abd/Pelvis - IV Contrast Only ma2 09/13 15:03 Order name: CBC with Automated Diff; Complete Time: 15:54 EDMS 16 15:10 Order name: Protime (+INR); Complete Time: 15:54 EDMS 16 15:10 Order name: PTT, Activated Partial Thromb; Complete Time: 15:54 EDMS 16 15:16 Order name: Lactate; Complete Time: 15:54 EDMS 16 15:26 Order name: CT; Complete Time: 15:54 EDMS 16 15:26 Order name: Basic Metabolic Panel; Complete Time: 15:54 EDMS 16 15:26 Order name: Liver (Hepatic) Function; Complete Time: 15:54 EDMS 16 15:26 Order name: Creatine Phosphokinase; Complete Time: 15:54 EDMS 16 15:27 Order name: CKMB Creatine Kinase MB; Complete Time: 15:54 EDMS 16 15:27 Order name: Troponin (Emerg Dept Use Only); Complete Time: 15:54 EDMS 16 15:27 Order name: Lipase; Complete Time: 15:54 EDMS 16 15:36 Order name: Procalcitonin; Complete Time: 15:54 EDMS 16 16:17 Order name: RAD; Complete Time: 17:05 EDMS 09/13 14:27 Order name: Accucheck; Complete Time: 14:30 ma2 09/13 14:27 Order name: Cardiac monitoring; Complete Time: 14:30 ma2 09/13 14:27 Order name: EKG - Nurse/Tech; Complete Time: 14:30 ma2 09/13 14:27 Order name: IV Saline Lock - Large Bore; Complete Time: 14:52 ma2 09/13 14:27 Order name: Labs collected and sent; Complete Time: 14:30 ma2 09/13 14:27 Order name: O2 Per Protocol; Complete Time: 14:30 ma2 09/13 14:27 Order name: O2 Sat Monitoring; Complete Time: 14:30 ma2 Administered Medications: 15:40 Drug: Potassium Chloride 10 mEq Route: IV; Rate: calculated rate; Site: right em antecubital; 18:30 Follow up: Response: No adverse reaction; IV Status: Completed infusion; IV Intake: 50mlem 16:33 Drug: Rocephin 1 grams Route: IV; Rate: calculated rate; Site: right antecubital; ss 17:44 Follow up: Response: No adverse reaction; IV Status: Completed infusion; IV Intake: 10mlem 16:40 Drug: Flagyl 500 mg Volume: 100 ml; Route: IVPB; Rate: 200 ml/hr; Infused Over: 30 ss mins; Site: right antecubital; 17:43 Follow up: Response: No adverse reaction; IV Status: Completed infusion; IV Intake: em 100ml 17:53 Drug: Metoprolol 5 mg Route: IVP; Site: right antecubital; ss 18:12 Follow up: Response: No adverse reaction; Marked relief of symptoms; Cardiac rhythm em changed Disposition: 09/13/19 16:17 Hospitalization ordered by Nikko Alcaraz for Inpatient Admission. Preliminary diagnosis are Acute pulmonary edema, Left sided colitis, Other disorders of electrolyte and fluid balance, not elsewhere classified. - Bed requested for Telemetry/MedSurg (Inpatient). - Status is Inpatient Admission. em - Condition is Stable. - Problem is new. - Symptoms are unchanged. UTI on Admission? No Signatures: Dispatcher [employer] EDMS Gwen Salguero Edgar, PREDATORY ANIMAL EXTERMINATOR PREDATORY ANIMAL EXTERMINATOR Jooj Chatterjee RN RN Alvaro Ochoa MD MD ma2 Corrections: (The following items were deleted from the chart) 17:29 16:17 Hospitalization Ordered by Nikko Alcaraz for Inpatient Admission. Preliminary bd diagnosis is Acute pulmonary edema; Left sided colitis; Other disorders of electrolyte and fluid balance, not elsewhere classified. Bed requested for Telemetry/MedSurg (Inpatient). Status is Inpatient Admission. Condition is Stable. Problem is new. Symptoms are unchanged. UTI on Admission? No. ma2 18:31 17:29 09/13/2019 16:17 Hospitalization Ordered by Nikko Alcaraz for Inpatient em Admission. Preliminary diagnosis is Acute pulmonary edema; Left sided colitis; Other disorders of electrolyte and fluid balance, not elsewhere classified. Bed requested for Telemetry/MedSurg (Inpatient). Status is Inpatient Admission. Condition is Stable. Problem is new. Symptoms are unchanged. UTI on Admission? No. bd
[2019-09-13] MEDS ORDERED: METOPROLOL TARTRATE 5 MG/5 ML INJ IV ONE (17:47)
[2019-09-13] MEDS ORDERED: ALBUTEROL 2.5 MG/3 ML NEB SOL NEB PRN (18:12)
[2019-09-13] MEDS ORDERED: ACETAMINOPHEN 500 MG TAB PO PRN (18:12)
--- NOTE | 2019-09-13 18:27 | P.HP ---
Certification for Inpatient Patient admitted to: Inpatient With expected LOS: >2 Midnights Practitioner: I am a practitioner with admitting privileges, knowledge of patient current condition, hospital course, and medical plan of care. Services: Services provided to patient in accordance with Admission requirements found in Title 42 Section 412.3 of the Code of Federal Regulations Patient History Date of Service: 09/13/19 Reason for admission: Progressively weakness and hypokalemia History of Present Illness: 69-year-old woman with a history of endstage renal disease on hemodialysis, chronic atrial fibrillation on anticoagulation, history [place] status post stent, diabetes mellitus type 2 present to the emergency department with the complaint of progressive weakness over the past 1 month. Patient reports weakness to the point she is not able to ambulate. She could not go for dialysis today due to increased weakness. She denied any fever. She reports upper abdominal pain, and decreased oral intake. She denied any diarrhea or vomiting. She feels she has an ulcer in her stomach. Her potassium level in the ED was low at 2.7. Chest x-ray unremarkable, EKG unremarkable. CT abdomen and pelvis suggests possible colitis. Patient was given a dose of IV potassium in the ED. She will need to undergo dialysis. Patient is admitted for further management. Allergies clopidogrel bisulfate [From Plavix] Allergy (Verified 09/13/19 21:56) increased b/p and purple toes poison evelia extract Allergy (Verified 09/13/19 21:56) Hives poison oak extract Allergy (Verified 09/13/19 21:56) Hives poison sumac extract Allergy (Verified 09/13/19 21:56) Hives Home Medications: Amiodarone HCl [Cordarone*] 200 mg PO DAILY 07/26/19 Apixaban [Eliquis *] 2.5 mg PO BID 07/26/19 Atorvastatin Calcium [Lipitor] 40 mg PO DAILY 07/26/19 Budesonide/Formoterol Fumarate [Symbicort 160-4.5 Mcg Inhaler] 2 puff IH BID Famotidine [Pepcid*] 20 mg PO BEDTIME 07/26/19 Sitagliptin Phosphate [Januvia] 25 mg PO DAILY 07/26/19 Docusate [Colace Cap*] 100 mg PO DAILY #30 cap 08/01/19 Folic Acid 1 mg PO DAILY #90 tablet 08/01/19 Hydralazine [Apresoline*] 25 mg PO BID #60 tab 08/01/19 Ticagrelor [Brilinta*] 90 mg PO BID #60 tablet 08/01/19 carvediloL [Coreg*] 25 mg PO BID 6AM 6PM #60 tab 08/01/19 Folic Acid 1 mg PO DAILY 09/14/19 Furosemide [Lasix*] 40 mg PO DAILY 09/14/19 Isosorbide Dinitrate 10 mg PO TID 09/14/19 Metoclopramide [Reglan*] 5 mg PO TID* 09/14/19 Sitagliptin Phosphate [Januvia] 25 mg PO DAILY 09/14/19 Sucralfate [Carafate*] 1 gm PO TID 09/14/19 Tiotropium [Spiriva Handihaler*] 2 inh IH BID 09/14/19 Zinc Sulfate [Zinc Sulfate*] 220 mg PO DAILY 09/14/19 - Past Medical/Surgical History Diabetic: No -: HTN -: CAD with prior stent -: Chronic atrial fibrillation on chronic anti coagulation therapy -: Diabetes mellitus type 2 non insulin dependent -: Hyperlipidemia -: COPD on chronic oxygen/prednisone -: Cardiac stents -: Appendectomy -: Hysterectomy Psychosocial/ Personal History: Patient is lives at home. - Social History Alcohol use: No CD- Drugs: No Caffeine use: Yes Review of Systems Other: General: No fever, no malaise. Eyes: No eye discharge, CVS: No chest pain, no palpitation. GI: No constipation, no diarrhea. Musculoskeletal: No joint pains, or joint swelling. Neurology: No headache, no asymmetric, weakness, no problem with swallowing. Except as documented, all other systems reviewed and negative. Physical Examination - Physical Exam General: Alert, In no apparent distress, Oriented x3, Other (Frail appearing.) HEENT: PERRLA, Mucous membr. moist/pink, EOMI, Sclerae nonicteric Neck: Supple, JVD not distended Respiratory: Clear to auscultation bilaterally, Normal air movement Cardiovascular: Edema (1+ bilateral lower extremity pitting edema), Irregular heart rate/rhythm Capillary refill: <2 Seconds Gastrointestinal: Normal bowel sounds, Soft and benign, Tenderness (Tenderness in epigastrium) Musculoskeletal: No swelling Neurological: Normal speech - Studies Laboratory Data (last 24 hrs) 09/13/19 14:47: PT 13.8 H, INR 1.18, APTT 37.4 H 09/13/19 14:47: WBC 9.9, Hgb 11.6 L, Hct 35.5 L, Plt Count 279 09/13/19 14:47: Sodium 133 L, Potassium 2.6 L*, BUN 26 H, Creatinine 6.29 H*, Glucose 142 H, Total Bilirubin 0.4, AST 18, ALT 14, Alkaline Phosphatase 85, Lipase 138 Assessment and Plan - Problems (Diagnosis) (1) Hypokalemia Current Visit: Yes Status: Acute (2) End stage chronic kidney disease Current Visit: Yes Status: Chronic (3) Rapid atrial fibrillation Current Visit: Yes Status: Acute (4) History of coronary artery stent placement Current Visit: No Status: Chronic (5) Hypertension Current Visit: No Status: Chronic Qualifiers: Hypertension type: essential hypertension Qualified Code(s): I10 - Essential (primary) hypertension (6) Colitis Current Visit: Yes Status: Acute - Plan Admit with telemetry Nephrology consult for hemodialysis Electrolyte management and nephrology. Hold Eliquis and Brilinta as patient is needing dialysis catheter exchange. Continue amiodarone. Also added metoprolol for both heart rate controlled and high blood pressure. PT and OT Supportive [id number] IV Cipro and Flagyl for colitis. Nutritional consult. Protonix. - Advance Directives Does patient have a Living Will: No Does patient have a Durable POA for Healthcare: No
[2019-09-13] MEDS ORDERED: POTASSIUM CL SA 10 MEQ TAB PO ONE (20:00)
[2019-09-13] MEDS: INSULIN -REGULAR HUMAN 50 UNIT/0.5 ML ML SQ SCH (21:00)
[2019-09-13] MEDS: METOPROLOL TAR 25 MG TAB PO SCH (22:43)
[2019-09-13] MEDS ORDERED: CIPROFLOXACIN 400mg IV 400 MG/200 ML BAG IV SCH (23:00)
--- NOTE | 2019-09-14 00:14 | CON ---
Date of Consultation: 09/13/2019 Chief Complaint: Acute kidney injury on chronic kidney disease. History Of Present Illness: Patient was referred to the hospital because of generalized weakness. S he was found to have hypokalemia. Potassium level was below normal ranges. Patient received IV pota ssium infusion. Patient is dialysis dependent. She has end-stage renal disease, chronic atrial fibr illation on anticoagulation, diabetes mellitus, status post stent for severe coronary artery disease. Patient has tunnel dialysis catheter. She accidentally pull on the catheter and catheter is dislod ged. Surgical consultation will be obtained to replace the catheter. Patient denies any fever, but blood work will be done to check for any evidence of infection. Review of Systems: Denies fever, chills. Past Medical History: Hypertension; coronary artery disease; chronic atrial fibrillation, on anticoa gulation; diabetes mellitus, type 2; hyperlipidemia; COPD, chronic oxygen and prednisone; cardiac kiran nt; appendectomy; hysterectomy. Social History: Denies tobacco, alcohol, or illicit drugs. Family History: No kidney disease in the family. Physical Examination: General: The patient is awake, alert, follows commands. Eyes: Anicteric sclerae. EOMI. Ears, Nose, Mouth, and Throat: Oral mucosa moist. No pallor. Neck: Supple. No bruits. Lungs: Clear to auscultation bilaterally. Heart: S1, S2. Abdomen: Soft, benign, nontender. Extremities: Slight edema. Neurological: Moving extremities. Cranial nerves intact. Psychiatric: Alert, oriented x3. Normal affect. Laboratory Data: Sodium 143, potassium 2.6, BUN 26, creatinine 6.26, glucose 142, bilirubin 0.4, AST 18, ALT 14, AP 85, lipase 139. Impression And Plan: 1.Patient has multiple medical problems. She has had malfunctioning dialysis catheter and surgical consultation is requested for dialysis catheter exchange. 2.Hypokalemia. Replacement was ordered. Monitor potassium level. 3.Rapid atrial fibrillation. Continue to monitor. Patient will be on telemetry. 4.History of coronary artery disease and stents. Monitor for any evidence of abnormal troponin. 5.Hypertension. Continue IV medication for blood pressure control. ISMAEL/LUIS ENRIQUE Voice ID: [id number] Report ID: [id number]
[2019-09-14] MEDS: METRONIDAZOLE 500mg IVPB 500 MG/100 ML BAG IV SCH ×3 (00:16→17:49)
[2019-09-14 04:10] LABS: Absolute Lymphocytes (CBC) 0.9 K/uL (0.7-4.9); Basophils % 0.5 % (0-1.3); Hematocrit 29.2 % (36.0-45.0); Lymphocytes % 12.9 % (15.3-44.8); MPV 9.1 fL (7.6-11.3); RBC Red Blood Cell Count 3.17 M/uL (3.86-4.86)
[2019-09-14 04:12] LABS: Protime INR 1.15
[2019-09-14] MEDS: ONDANSETRON 4 MG/2 ML VIAL IV PRN (04:17)
[2019-09-14] MEDS: METOPROLOL TAR 25 MG TAB PO SCH ×2 (05:21→18:00)
[2019-09-14] MEDS: INSULIN -REGULAR HUMAN 50 UNIT/0.5 ML ML SQ SCH ×4 (07:30→20:47)
--- NOTE | 2019-09-14 12:33 | P.PN ---
Subjective Date of Service: 09/14/19 Chief Complaint: Progressively weakness and hypokalemia Pt admitted with weakness and HD catheter malfuntion, comaplining of intermittent abd pain for last 3wks K 2.8 on admission today mild intermittent abd pain k replaced , abd Ct with Aortic thrombi and Splenic infraction, pt was on Eliquis, stopped 5 days ago will start on heparin drip Gi evaluation HD catheter placement tomorrow Physical Examination - Vital Signs Temperature: 97.0 F Blood Pressure: 115/67 Pulse: 82 Respirations: 18 Pulse Ox (%): 98 - Physical Exam General: Oriented x3, Mild distress HEENT: Atraumatic Neck: Supple, Without JVD or thyroid abnormality Respiratory: Clear to auscultation bilaterally, Normal air movement Cardiovascular: Normal pulses, Regular rate/rhythm, Normal S1 S2, No gallops, No rubs, No murmurs, Edema (upper extremity ) Gastrointestinal: Normal bowel sounds, Soft and benign Musculoskeletal: Swelling (upper extremity ) - Studies Laboratory Data (last 24 hrs) 09/13/19 14:47: PT 13.8 H, INR 1.18, APTT 37.4 H 09/13/19 14:47: WBC 9.9, Hgb 11.6 L, Hct 35.5 L, Plt Count 279 09/13/19 14:47: Sodium 133 L, Potassium 2.6 L*, BUN 26 H, Creatinine 6.29 H*, Glucose 142 H, Total Bilirubin 0.4, AST 18, ALT 14, Alkaline Phosphatase 85, Lipase 138 Assessment And Plan - Plan ESRD on Home HD HD tomorrow after cathter placement renal dose meds Anemia will start on ELIZABETH Hypokalemia will replace Aortic thrombosis with splenic infraction plan to start on Heparin drip Gi evaluation
--- NOTE | 2019-09-14 16:32 | P.PN ---
Subjective Date of Service: 09/14/19 Chief Complaint: Progressive weakness and hypokalemia Patient is awake. She is still complaining of significant abdominal pain. Her blood pressure has been stable. She has been afebrile. She denies any diarrhea. She still report nausea. Physical Examination - Vital Signs Temperature: 97.0 F Blood Pressure: 115/67 Pulse: 82 Respirations: 18 Pulse Ox (%): 98 - Physical Exam General: In no apparent distress, Oriented x3 HEENT: Mucous membr. moist/pink Neck: Supple, JVD not distended Respiratory: Clear to auscultation bilaterally, Normal air movement Cardiovascular: No edema, Irregular heart rate/rhythm Gastrointestinal: Normal bowel sounds, Soft and benign, Non-distended, Tenderness (Tenderness elicited in the upper abdomen) Musculoskeletal: No swelling Integumentary: Erythema (Around dialysis catheter in the right anterior chest.) Assessment And Plan - Current Problems (Diagnosis) (1) Hypokalemia Current Visit: Yes Status: Acute (2) End stage chronic kidney disease Current Visit: Yes Status: Chronic (3) History of coronary artery stent placement Current Visit: No Status: Chronic (4) Hypertension Current Visit: No Status: Chronic Qualifiers: Hypertension type: essential hypertension Qualified Code(s): I10 - Essential (primary) hypertension (5) Colitis Current Visit: Yes Status: Acute (6) Atrial fibrillation Current Visit: No Status: Chronic Qualifiers: Atrial fibrillation type: paroxysmal Qualified Code(s): I48.0 - Paroxysmal atrial fibrillation (7) Arterial thromboembolism Current Visit: Yes Status: Acute (8) Aortic aneurysm Current Visit: Yes Status: Chronic (9) Splenic infarct Current Visit: Yes Status: Acute - Plan There is a concern patient may have pulled out her dialysis catheter. General surgery-Dr. Mcgrath consulted for dialysis catheter exchange. Patient is needing anticoagulation for thrombus in the aorta with splenic infarction. She is started on heparin drip. Dr. Mcgrath is concerned about bleeding during the procedure and postop. He recommend x-ray to reassess position of the dialysis catheter and a trial of Cathflo to see if the catheter is in the right position. Transfer center has been contacted in attempt to solicit a vascular surgeon's opinion regarding management of the aortic thrombosis and the splenic infarction. Low threshold for transfer to a tertiary institute. Electrolyte management per nephrology. Hold Eliquis as patient is needing dialysis catheter exchange. Patient stated she stopped taking her Brilinta about 5 days ago. Continue amiodarone. Discontinue metoprolol given soft blood pressure. Hold PT and OT for now. IV Cipro and Flagyl for possible colitis. Nutritional consult. IV Protonix.
[2019-09-14] MEDS ORDERED: HEPARIN/D5W 25,000 UNIT/500 ML BAG IV PRN (16:45)
[2019-09-14] MEDS ORDERED: HEPARIN 5000 UNIT/ML 1 ML VIAL IV ONE (17:00)
[2019-09-14 17:09] LABS: Basophils % 0.8 % (0-1.3); Hematocrit 32.3 % (36.0-45.0); Lymphocytes % 11.9 % (15.3-44.8); MPV 9.7 fL (7.6-11.3); RBC Red Blood Cell Count 3.47 M/uL (3.86-4.86)
[2019-09-14 18:09] LABS: Anisocytosis 1+; Blood Morphology Comment NOTED (NOT SEEN); Platelet Estimate ADEQ; Poikilocytosis 1+; Urine White Blood Cell Casts OK
[2019-09-14 20:23] LABS: Protime INR 1.13
[2019-09-14] MEDS: HOME MED 1 EA UNK (Budesonide/Formoterol Fumarate [Symbicort 160-4.5 Mcg Inhaler] 2 PUFF) IH SCH (20:47)
[2019-09-14] MEDS: SUCRALFATE 1 GM TABLET PO SCH (20:48)
[2019-09-15] MEDS: METRONIDAZOLE 500mg IVPB 500 MG/100 ML BAG IV SCH ×2 (00:48→09:26)
[2019-09-15] MEDS: METOPROLOL TAR 25 MG TAB PO SCH ×3 (05:13→18:33)
[2019-09-15] MEDS: INSULIN -REGULAR HUMAN 50 UNIT/0.5 ML ML SQ SCH ×4 (07:30→20:45)
--- NOTE | 2019-09-15 07:59 | EKG ---
Test Date: 2019-09-13 Test Time: 21:08:46 Termite Inspector: RT Berumen MEASUREMENT RESULTS: Intervals: Rate: 102 CT: 180 QRSD: 150 QT: 392 QTc: 510 [place]: P: -90 CT: 180 QRS: 265 T: 6 INTERPRETIVE STATEMENTS: Atrial flutter with variable AV block Right bundle branch block Inferior infarct, age undetermined Anteroseptal infarct, age undetermined T wave abnormality, consider lateral ischemia Abnormal ECG Compared to ECG 09/13/2019 17:39:12 Myocardial infarct finding still present Electronically Signed On 09-15-19 07:58:55 HANDBAG OPERATOR by Niranjan Fajardo
--- NOTE | 2019-09-15 08:00 | EKG ---
Test Date: 2019-09-13 Test Time: 14:16:26 Car Deliverer: SYLVAIN MEASUREMENT RESULTS: Intervals: Rate: 135 [place]: QRSD: 132 QT: 366 QTc: 549 [place]: P: [place]: QRS: -59 T: 106 INTERPRETIVE STATEMENTS: Atrial fibrillation with rapid ventricular response with premature ventricular or aberrantly conducted complexes Left axis deviation Right bundle branch block Inferior infarct, age undetermined T wave abnormality, consider lateral ischemia Abnormal ECG Compared to ECG 07/26/2019 10:32:37 Ventricular premature complex(es) now present Left-axis deviation now present Myocardial infarct finding now present Sinus rhythm no longer present T-wave abnormality still present Electronically Signed On 09-15-19 07:59:38 SOLUTION DEVELOPER by Niranjan Fajardo
--- NOTE | 2019-09-15 08:00 | EKG ---
Test Date: 2019-09-13 Test Time: 17:39:12 Testing Consultant: CAM MEASUREMENT RESULTS: Intervals: Rate: 126 [place]: QRSD: 152 QT: 382 QTc: 553 [place]: P: [place]: QRS: -87 T: 75 INTERPRETIVE STATEMENTS: Atrial flutter with variable AV block Left axis deviation Right bundle branch block Inferior infarct, age undetermined Anterior infarct, age undetermined Abnormal ECG Compared to ECG 09/13/2019 14:16:26 Atrial fibrillation no longer present Ventricular premature complex(es) no longer present T-wave abnormality no longer present Myocardial infarct finding still present Electronically Signed On 09-15-19 07:59:21 TRAVELING SALES REPRESENTATIVE by Niranjan Fajardo
--- NOTE | 2019-09-15 08:38 | RAD REPORT ---
EXAM DESCRIPTION: RAD - Chest Single View - 09/15/2019 8:31 am CLINICAL HISTORY: Check position of dialysis catheter Chest pain. COMPARISON: Chest Single View dated 09/13/2019; Chest Single View dated 07/27/2019; Chest Single Vie w dated 07/26/2019; Chest Single View dated 06/26/2019; Abdomen Pelvis W Contrast dated 09/13/2019 FINDINGS: Portable technique limits examination quality. Right-sided venous catheter has tip in the SVC. The lungs are quite emphysematous with poorly defined opacity in the right lung base which may represent an area of atelectasis or aspiration/ developing pneumonia. The heart is mildly enlarged in size.
[2019-09-15 08:44] LABS: Potassium 3.4 mmol/L (3.5-5.1)
[2019-09-15 08:53] LABS: Absolute Lymphocytes (CBC) 1.5 K/uL (0.7-4.9); Basophils % 0.9 % (0-1.3); Hematocrit 31.1 % (36.0-45.0); Lymphocytes % 15.2 % (15.3-44.8); MPV 9.6 fL (7.6-11.3); RBC Red Blood Cell Count 3.35 M/uL (3.86-4.86)
[2019-09-15] MEDS: SUCRALFATE 1 GM TABLET PO SCH ×3 (09:00→20:25)
[2019-09-15] MEDS: SPIRIVA IH SCH ×2 (09:00→21:00)
[2019-09-15] MEDS: FOLIC ACID 1 MG TABLET PO SCH (09:00)
[2019-09-15] MEDS: HOME MED 1 EA UNK (Budesonide/Formoterol Fumarate [Symbicort 160-4.5 Mcg Inhaler] 2 PUFF) IH SCH ×2 (09:00→20:25)
[2019-09-15] MEDS: DOCUSATE NA 100 MG CAP PO SCH (09:00)
[2019-09-15] MEDS: ATORVASTATIN 40 MG TAB PO SCH (09:00)
[2019-09-15] MEDS: AMIODARONE HCL 200 MG TAB PO SCH (09:00)
[2019-09-15] MEDS: ZINC SULFATE 220 MG CAP PO SCH (09:00)
[2019-09-15 09:01] LABS: Protime INR 1.15
[2019-09-15] MEDS ORDERED: AMIODARONE HCL 200 MG TAB PO ONE (13:04)
--- NOTE | 2019-09-15 13:57 | P.PN ---
Subjective Date of Service: 09/15/19 Chief Complaint: Progressive weakness and hypokalemia Patient is awake. She states she feels better. She does report mild nausea. Her blood pressure has been stable. She denies any diarrhea. She denies abdominal pain today. Patient dialysis catheter was reassessed by the dialysis nurse and found to be working. Tip of the dialysis catheter is in the SVC per chest x-ray. Physical Examination - Vital Signs Temperature: 97.0 F Blood Pressure: 125/71 Pulse: 98 Respirations: 18 Pulse Ox (%): 90 - Physical Exam General: In no apparent distress, Oriented x2 HEENT: Mucous membr. moist/pink Neck: Supple, JVD not distended Respiratory: Clear to auscultation bilaterally, Normal air movement Cardiovascular: No edema, Normal S1 S2, Irregular heart rate/rhythm Gastrointestinal: Soft and benign, Non-distended, No tenderness Musculoskeletal: No swelling Neurological: Normal speech Assessment And Plan - Current Problems (Diagnosis) (1) Hypokalemia Current Visit: Yes Status: Acute (2) End stage chronic kidney disease Current Visit: Yes Status: Chronic (3) History of coronary artery stent placement Current Visit: No Status: Chronic (4) Hypertension Current Visit: No Status: Chronic Qualifiers: Hypertension type: essential hypertension Qualified Code(s): I10 - Essential (primary) hypertension (5) Colitis Current Visit: Yes Status: Acute (6) Atrial fibrillation Current Visit: No Status: Chronic Qualifiers: Atrial fibrillation type: paroxysmal Qualified Code(s): I48.0 - Paroxysmal atrial fibrillation (7) Arterial thromboembolism Current Visit: Yes Status: Acute (8) Aortic aneurysm Current Visit: Yes Status: Chronic (9) Splenic infarct Current Visit: Yes Status: Acute - Plan Resume hemodialysis today since the dialysis catheter is determined to be working okay. Continue heparin drip. I liquids is on hold Transfer center has been contacted in attempt to solicit a vascular surgeon's opinion regarding management of the aortic thrombosis and the splenic infarction. Low threshold for transfer to a tertiary institute but prefers patient to be managed here and not in favor of transfer to a tertiary institute. I am waiting to hear from a vascular surgeon. Consulted cardiology to also evaluate. Electrolyte management per nephrology. Continue amiodarone. Metoprolol is on hold Hold PT and OT for now. IV Flagyl for possible colitis. IV Protonix.
[2019-09-15] MEDS ORDERED: ALBUTEROL 2.5 MG/3 ML NEB SOL NEB PRN (14:00)
[2019-09-15] MEDS ORDERED: DILTIAZEM INJ 125 MG in NA CHLORIDE 0.9% 100 ML IVPB PRN (16:57)
--- NOTE | 2019-09-15 17:44 | CON ---
Reason For Consult: Atrial fibrillation, rapid ventricular response. History Of Present Illness: Ms. Estrella is a patient with hemodialysis through a central catheter. She had some kind of accident, thought the catheter was dislodged. dialysis did not seem to work, so she came to the hospital. Since then, the catheter has been repaired and she is able to undergo dialysis, but she missed at least 1 dialysis treatment. She did not really notice her heart was beating fast, but she was in AFib, rapid response. She has been on Eliquis 2.5 b.i.d. because of AFib, but that was stopped and she has been on heparin, so she has been fully anticoagulated for most of the time she has been in atrial fib. She has a history of coronary heart disease. Her most recent stent was in May of this year. It was for an acute NE. Since then, she has had a lot of complications, the worst of which was development of oliguric renal failure and she is now hemodialysis patient for about 6 weeks or so. She also has a history of severe obstructive lung disease , cerebrovascular disease and while here in the hospital, she has been found to have a splenic infarct, also an infrarenal abdominal aortic aneurysm with a small amount of mural thrombus. She also has diabetes. Outpatient Medications: Tiotropium, sucralfate, zinc sulfate, Lasix, isosorbide dinitrate, folic acid, Reglan, sitagliptin, Brilinta, hydralazine, folic acid, docusate, Coreg, apixaban, atorvastatin, amiodarone, sitagliptin, famotidine, budesonide with formoterol or Symbicort. Social History: She does not smoke. She smoked up until her NE in May 2019. Allergies: SHE REPORTS A DRUG ALLERGY TO CLOPIDOGREL. OUR CHART LISTS HER INTOLERANT TO APIXABAN, THAT IS A MISTAKE. SHE IS NOT ALLERGIC TO APIXABAN. Physical Examination: General: She is alert, oriented, pleasant. She is undergoing hemodialysis during the exam. Vital Signs: Her blood pressure 125/71, heart rate 98, temperature 97.0. Heart: Irregularly irregular rhythm. Lungs: Clear. Abdomen: Soft. Extremities: Mild edema. Recommendations: I would recommend that we do a cardioversion if she is still in AFib after her metabolic abnormalities come closer to normal. This is her second dialysis treatment. Her potassium level is close to normal. So, if we can see that she is still in AFib, by tomorrow or Friday, we would do a cardioversion then. In the meantime, we will keep her on heparin. Her splenic infarct no doubt is from AFib. It is small, does not need to be addressed surgically. She needs anticoagulation full time babysitter and she needs to continue the amiodarone. I will give her a few extra doses of amiodarone to see if that will help re-establish sinus rhythm. MATT/LUIS ENRIQUE Voice ID: [id number] Report ID: [id number] QUENTIN
[2019-09-15] MEDS: metroNIDAZOLE 500 MG TABLET PO SCH ×2 (18:33→22:58)
--- NOTE | 2019-09-15 19:02 | RAD REPORT ---
EXAM DESCRIPTION: RAD - Chest Single View - 09/15/2019 5:55 pm CLINICAL HISTORY: PICC line placement COMPARISON: September 15 FINDINGS: Portable chest was obtained following placement of a left upper extremity PICC line. The c atheter tip is in the SVC.
[2019-09-15] MEDS: APIXABAN 2.5 MG TABLET PO SCH (20:25)
--- NOTE | 2019-09-16 04:11 | PN ---
Date of Progress Note: 09/15/2019 Subjective: Patient was admitted with atrial fibrillation, splenic infarct with symptomatic hypokale ricky. Objective: Vital Signs: Blood pressure 105/57, pulse of 110. Chest: Clear to auscultation. Heart: S1, S2. Regular. Abdomen: Soft nontender. Extremities: No edema. Laboratory Data: WBC 10.1, H and H 10.2/31.1, platelet 250. Sodium 132, potassium 3.2, bicarb 22, B UN 38, creatinine 7.7, calcium 7.5. Current Medications: The patient on: 1.Eliquis. 2.Epogen. 3.Amiodarone. 4.Atorvastatin. 5.Diltiazem. 6.Metoprolol. 7.Carafate. 8.Zofran. 9.Insulin. 10.Heparin drip. Assessment And Plan: 1.End-stage renal disease, stable from the renal standpoint. We will continue dialysis Friday, esd, Friday. 2.Secondary hyperparathyroidism. No need for binder. 3.Anemia of chronic kidney disease. Continue ELIZABETH. 4.Atrial fibrillation with splenic infarction with rapid ventricular response. Plan for cardioversi on. We will follow up with Cardiology. 5.Hypokalemia. Patient being dialyzed on high potassium bath. We will follow up with primary. ESPERANZA Voice ID: [id number] Report ID: [id number]
[2019-09-16 05:17] LABS: Absolute Lymphocytes (CBC) 0.7 K/uL (0.7-4.9); Basophils % 1.4 % (0-1.3); Hematocrit 30.3 % (36.0-45.0); Lymphocytes % 5.6 % (15.3-44.8); MPV 9.4 fL (7.6-11.3); RBC Red Blood Cell Count 3.23 M/uL (3.86-4.86)
[2019-09-16] MEDS: METOPROLOL TAR 25 MG TAB PO SCH ×2 (05:28→18:25)
[2019-09-16 05:50] LABS: Potassium 2.9 mmol/L (3.5-5.1)
[2019-09-16] MEDS: INSULIN -REGULAR HUMAN 50 UNIT/0.5 ML ML SQ SCH ×4 (08:45→20:55)
[2019-09-16] MEDS: ATORVASTATIN 40 MG TAB PO SCH (08:45)
[2019-09-16] MEDS: AMIODARONE HCL 200 MG TAB PO SCH (08:46)
[2019-09-16] MEDS: DOCUSATE NA 100 MG CAP PO SCH (08:46)
[2019-09-16] MEDS: HOME MED 1 EA UNK (Budesonide/Formoterol Fumarate [Symbicort 160-4.5 Mcg Inhaler] 2 PUFF) IH SCH (08:46)
[2019-09-16] MEDS: metroNIDAZOLE 500 MG TABLET PO SCH ×3 (08:46→20:54)
[2019-09-16] MEDS: FOLIC ACID 1 MG TABLET PO SCH (08:46)
[2019-09-16] MEDS: SUCRALFATE 1 GM TABLET PO SCH ×3 (08:47→20:52)
[2019-09-16 08:59] LABS: Blood Morphology Comment NOT SEEN (NOT SEEN); Platelet Estimate ADEQ
[2019-09-16] MEDS: SPIRIVA IH SCH ×2 (09:00→21:00)
[2019-09-16] MEDS: ZINC SULFATE 220 MG CAP PO SCH (09:00)
[2019-09-16] MEDS: APIXABAN 2.5 MG TABLET PO SCH ×2 (09:00→20:53)
[2019-09-16] MEDS ORDERED: POTASSIUM CL SA 10 MEQ TAB PO ONE (09:32)
[2019-09-16] MEDS ORDERED: KCL 20 MEQ/100 mL IVPB 20 MEQ/100 ML BAG IV SCH (10:00)
--- NOTE | 2019-09-16 10:58 | P.PN ---
Subjective Date of Service: 09/16/19 Chief Complaint: Progressive weakness and hypokalemia Patient systolic blood pressure dropped to the 70s and developed AFib with RVR, with heart rate up to 190. She was transferred to ICU for close monitoring. Her heart rate has improved since being in the ICU, the systolic blood pressure also improved. The patient and some soft diet yesterday and drink some liquids this morning. She states her nausea is better. She denies any abdominal pain. Physical Examination - Vital Signs Temperature: 97.1 F Blood Pressure: 104/61 Pulse: 87 Respirations: 15 Pulse Ox (%): 98 - Physical Exam General: In no apparent distress HEENT: Mucous membr. moist/pink Neck: JVD not distended Respiratory: Clear to auscultation bilaterally, Normal air movement Cardiovascular: Edema (1+ bilateral pedal edema) Gastrointestinal: Normal bowel sounds, Soft and benign, No tenderness Neurological: Normal speech, Normal strength at 5/5 x4 extr Assessment And Plan - Current Problems (Diagnosis) (1) Hypokalemia Current Visit: Yes Status: Acute (2) End stage chronic kidney disease Current Visit: Yes Status: Chronic (3) History of coronary artery stent placement Current Visit: No Status: Chronic (4) Hypertension Current Visit: No Status: Chronic Qualifiers: Hypertension type: essential hypertension Qualified Code(s): I10 - Essential (primary) hypertension (5) Colitis Current Visit: Yes Status: Acute (6) Atrial fibrillation Current Visit: No Status: Chronic Qualifiers: Atrial fibrillation type: paroxysmal Qualified Code(s): I48.0 - Paroxysmal atrial fibrillation (7) Arterial thromboembolism Current Visit: Yes Status: Acute (8) Aortic aneurysm Current Visit: Yes Status: Chronic (9) Splenic infarct Current Visit: Yes Status: Acute - Plan Status post successful hemodialysis yesterday. The patient lost her IV access, heparin drip was discontinued yesterday and patient started back on Eliquis. Anticoagulation for aortic mural thrombus and splenic infarct. Electrolyte management per nephrology. Oral potassium replacement today, target potassium of 4. The patient has been in and out of AFib Cardiology input appreciated Continue amiodarone. Metoprolol is on hold due to low blood pressure Oral Flagyl for possible colitis. Continue IV Protonix. Feeding as tolerated
[2019-09-16] MEDS ORDERED: FENTANYL CITR 100 MCG/2 ML ONE (11:12)
[2019-09-16] MEDS ORDERED: LIDOCAINE 2% MPF 5 ML VIAL ONE (11:12)
[2019-09-16] MEDS ORDERED: propofoL 200 MG/20 ML VIAL IV ONE (11:12)
[2019-09-16] MEDS ORDERED: ONDANSETRON 4 MG/2 ML VIAL ONE (11:15)
[2019-09-16] MEDS ORDERED: ROCURONIUM 50 MG/5 ML VIAL IV ONE (11:15)
--- NOTE | 2019-09-16 13:17 | PN ---
Date of Progress Note: 09/16/2019 Ms. Estrella has a rather past medical history that is complicated. She has chronic atrial fibrillat ion, on amiodarone and Eliquis. She has a history of diabetes, COPD, coronary artery disease. She h as a history of abdominal aortic aneurysm. She is on hemodialysis. She came in with splenic infarct s secondary to atrial fibrillation. She had her amiodarone dose increased yesterday and given an ext ra 400 mg bolus. She remains on Eliquis now. Her heparin IV was stopped because she lost access. T his morning, she has paroxysmal atrial fibrillation, but she is mostly in sinus rhythm. She does not need a cardioversion electrically. She needs to remain on amiodarone and Eliquis. Her heart rate i s controlled. Continue her other medical treatment. She can move to telemetry today. We will shen ng to follow her. She needs to be on Eliquis indefinitely. CRISTIAN/LUIS ENRIQUE Voice ID: [id number] Report ID: [id number]
[2019-09-16] MEDS: SYMBICORT IH SCH (20:52)
--- NOTE | 2019-09-17 02:57 | PN ---
Date of Progress Note: 09/16/2019 History: The patient was admitted with atrial fibrillation with RVR, supposed to have cardioversion today. The patient spontaneously converted to sinus. Patient had hypokalemia. Physical Examination: Vital Signs: Blood pressure of 102/60, pulse of 96. Chest: Clear to auscultation. Heart: S1, S2. Systolic murmur. Abdomen: Soft, nontender. Extremities: No edema. Laboratory Data: WBC 13.1, H and H 9.9/30.3, platelets 239. Sodium 136, potassium 2.9, bicarb 25, B UN 20, creatinine 4.6, calcium 8, magnesium of 2. Current Medications: The patient on include: 1.Metronidazole. 2.Epogen. 3.Eliquis. 4.Amiodarone. 5.Diltiazem drip. 6.Metoprolol 12.5. 7.Zinc sulfate. 8.Carafate. Assessment And Plan: 1.End-stage renal disease secondary to cardiorenal, dialysis dependent. We are going to continue martha lysis Friday, Friday, and Friday. We will arrange for the dialysis tomorrow. Patient being dialy zed on high potassium bath given the persistent hypokalemia and we will follow up. 2.Hypertension, controlled, optimal. Continue current treatment. We will add spironolactone to the regimen given the presence of hypokalemia and congestive heart failure. 3.The patient is going to be dialyzed on sodium module with low temperature. 4.Hypokalemia. Patient is going to be dialyzed on high potassium bath. 5.Anemia of chronic kidney disease. Continue ELIZABETH. 6.Atrial fibrillation, paroxysmal, follow up with Cardiology. 7.Splenic infarction. Continue anticoagulation. 8.Colitis, continue Flagyl. 9.Hypokalemia. We will supplement. We will start Aldactone. JOAO/LUIS ENRIQUE Voice ID: [id number] Report ID: [id number]
[2019-09-17 05:21] LABS: Absolute Lymphocytes (CBC) 0.8 K/uL (0.7-4.9); Basophils % 0.3 % (0-1.3); Hematocrit 30.5 % (36.0-45.0); Lymphocytes % 7.3 % (15.3-44.8); MPV 9.4 fL (7.6-11.3); RBC Red Blood Cell Count 3.24 M/uL (3.86-4.86)
[2019-09-17 05:25] LABS: Potassium 4.1 mmol/L (3.5-5.1)
[2019-09-17 05:35] LABS: MPV 9.8 fL (7.6-11.3)
[2019-09-17] MEDS: METOPROLOL TAR 25 MG TAB PO SCH ×3 (05:59→17:29)
[2019-09-17] MEDS: INSULIN -REGULAR HUMAN 50 UNIT/0.5 ML ML SQ SCH ×4 (07:30→21:00)
[2019-09-17 07:50] LABS: Platelet Estimate ADEQ
[2019-09-17 07:51] LABS: Anisocytosis 1+; Blood Morphology Comment NOTED (NOT SEEN); Platelet Estimate ADEQ; Urine White Blood Cell Casts OK
[2019-09-17] MEDS: SPIRONOLACTONE 25 MG TABLET PO SCH (08:55)
[2019-09-17] MEDS: APIXABAN 2.5 MG TABLET PO SCH ×2 (08:55→21:03)
[2019-09-17] MEDS: AMIODARONE HCL 200 MG TAB PO SCH (08:55)
[2019-09-17] MEDS: DOCUSATE NA 100 MG CAP PO SCH (08:55)
[2019-09-17] MEDS: FOLIC ACID 1 MG TABLET PO SCH (08:56)
[2019-09-17] MEDS: SYMBICORT IH SCH ×2 (08:56→22:00)
[2019-09-17] MEDS: ATORVASTATIN 40 MG TAB PO SCH (08:56)
[2019-09-17] MEDS: metroNIDAZOLE 500 MG TABLET PO SCH ×3 (08:56→21:03)
[2019-09-17] MEDS: SUCRALFATE 1 GM TABLET PO SCH ×3 (08:56→21:03)
[2019-09-17] MEDS: ZINC SULFATE 220 MG CAP PO SCH (08:56)
[2019-09-17] MEDS: SPIRIVA IH SCH ×2 (08:57→22:00)
--- NOTE | 2019-09-17 11:16 | P.PN ---
Subjective Date of Service: 09/17/19 Chief Complaint: Progressive weakness and hypokalemia Patient blood pressure has stabilized. She has been in and out of afib. She is currently in sinus rhythm. She has been tolerating liquid and soft diet but not solids. She states her nausea is better and denies any abdominal pain. She remain confused. Physical Examination - Vital Signs Temperature: 97.8 F Blood Pressure: 108/75 Pulse: 93 Respirations: 20 Pulse Ox (%): 98 - Physical Exam General: In no apparent distress, Confused HEENT: Mucous membr. moist/pink Neck: JVD not distended Respiratory: Clear to auscultation bilaterally, Normal air movement Cardiovascular: Normal pulses, Regular rate/rhythm Gastrointestinal: Soft and benign, Non-distended, No tenderness Neurological: Normal speech, Normal strength at 5/5 x4 extr Assessment And Plan - Current Problems (Diagnosis) (1) Hypokalemia Current Visit: Yes Status: Acute (2) End stage chronic kidney disease Current Visit: Yes Status: Chronic (3) History of coronary artery stent placement Current Visit: No Status: Chronic (4) Hypertension Current Visit: No Status: Chronic Qualifiers: Hypertension type: essential hypertension Qualified Code(s): I10 - Essential (primary) hypertension (5) Colitis Current Visit: Yes Status: Acute (6) Atrial fibrillation Current Visit: No Status: Chronic Qualifiers: Atrial fibrillation type: paroxysmal Qualified Code(s): I48.0 - Paroxysmal atrial fibrillation (7) Arterial thromboembolism Current Visit: Yes Status: Acute (8) Aortic aneurysm Current Visit: Yes Status: Chronic (9) Splenic infarct Current Visit: Yes Status: Acute - Plan Continue Eliquis anticoagulation for aortic mural thrombus and splenic infarct and atrial fibrillation. Electrolyte management per nephrology. Oral potassium replacement as needed, target potassium of 4. The patient also started on Aldactone. Cardiology is following Continue amiodarone. Resume metoprolol with holding parameters Oral Flagyl for possible colitis. Continue IV Protonix. Feeding as tolerated Consult to speech for swallowing evaluation PT and OT Disposition to skilled rehab.
--- NOTE | 2019-09-17 13:09 | P.PN ---
Subjective Date of Service: 09/17/19 Chief Complaint: Progressive weakness and hypokalemia Subjective: Improving Pt admitted with weakness and HD catheter malfuntion, comaplining of intermittent abd pain for last 3wks K 2.8 on admission today no new complaints poor oral intake HD today pending discharge to SNF Physical Examination - Vital Signs Temperature: 97.6 F Blood Pressure: 109/60 Pulse: 93 Respirations: 16 Pulse Ox (%): 99 - Physical Exam General: Alert, In no apparent distress Neck: Supple, Without JVD or thyroid abnormality Respiratory: Clear to auscultation bilaterally, Normal air movement Cardiovascular: No edema, Normal S1 S2, No gallops, No rubs, No murmurs, Irregular heart rate/rhythm Gastrointestinal: Normal bowel sounds Musculoskeletal: No swelling Assessment And Plan - Plan ESRD on Home HD HD tomorrow after cathter placement renal dose meds Anemia Cont Epogen Hypokalemia cont HD with Dialysate K HTN on metoprolol and Aldactone controlled Afib now rate controlled On Eliquis and metoprolol Aortic thrombosis with splenic infraction Cont Eliquis
--- NOTE | 2019-09-17 13:48 | RAD REPORT ---
EXAM DESCRIPTION: CT - Ct Stroke Brain Wo Cont - 09/17/2019 1:37 pm CLINICAL HISTORY: Aphasia, acute altered mental status COMPARISON: None. TECHNIQUE: Axial 5 millimeter thick images of the head were obtained without IV contrast. All CT scans are performed using dose optimization technique as appropriate and may include automated exposure control or mA/KV adjustment according to patient size. FINDINGS: No intracranial hemorrhage, mass, or cerebral edema. A small focus of decreased attenuatio n is present in the deep periventricular white matter left frontal lobe. Small area of decreased atte nuation is also present in the posterior lateral aspect of the left occipital lobe. Patient has an un derlying mild atrophy and mild scattered chronic ischemic change in the cerebral white matter. No ext ra-axial fluid collections. Fitzpatrick matter-white matter differentiation is preserved. Ventricles are in proportion to volume loss. Arterial tree calcifications are present. Visualized portions of the mastoid air cells, paranasal sinuses, and orbits are unremarkable. Findings telephoned to the referring physician 1:44 p.m. IMPRESSION: No intracranial hemorrhage. Areas of diminished attenuation in the deep periventricular white matter left frontal lobe and in the cortex of the posterior lateral left occipital lobe. Both areas are concerning for nonhemorrhagic CV A. If tolerable by the patient, MR imaging could be used for confirmation.
[2019-09-17] MEDS ORDERED: ASPIRIN 81 MG CHEWABLE TABLET PO SCH (14:15)
--- NOTE | 2019-09-17 16:09 | P.PN ---
Date of Service: 09/17/19 Nurse called and reported patient has right-sided weakness. Patient seen and examined and noted to have right-sided hemiplegia, no facial deviation, no speech problem. She remained confused. She does obey commands. Head CT stat obtained report small areas of diminished attenuation, one in the left frontal lobe and the other in the occipital lobe. Case discussed with Dr. Quevedo. Embolic stroke is highly suspected given patient has stroke in arterial distributions of different source. Patient is already anticoagulated with Eliquis. Dr. Quevedo recommend adding baby aspirin. MRI of the brain is requested. Speech and swallow evaluation is pending. Cardiology-Dr. Bates to follow. Hemodialysis per nephrology PT and OT has been updated on patient's current condition.
[2019-09-17] MEDS ORDERED: NA CHLORIDE 0.9% 1,000 ML IV PRN (17:01)
[2019-09-17] MEDS ORDERED: ALBUMIN HUMAN 25% 50 ML IV SCH (18:00)
[2019-09-17] MEDS: EPOETIN 4,000 UNIT/ML VIAL IV SCH (18:26)
[2019-09-18] MEDS ORDERED: DIGOXIN 0.25 MG/ML AMP IV ONE (00:15)
[2019-09-18] MEDS ORDERED: METOPROLOL TAR 25 MG TAB PO ONE (00:18)
[2019-09-18 05:55] LABS: Absolute Lymphocytes (CBC) 0.7 K/uL (0.7-4.9); Basophils % 0.8 % (0-1.3); Hematocrit 29.1 % (36.0-45.0); Lymphocytes % 7.2 % (15.3-44.8); MPV 10.4 fL (7.6-11.3); RBC Red Blood Cell Count 3.15 M/uL (3.86-4.86)
[2019-09-18] MEDS: METOPROLOL TAR 25 MG TAB PO SCH (05:55)
[2019-09-18] MEDS: SPIRIVA IH SCH ×2 (09:00→20:12)
[2019-09-18] MEDS: SYMBICORT IH SCH ×2 (09:00→20:12)
[2019-09-18] MEDS: DOCUSATE NA 100 MG CAP PO SCH (09:00)
[2019-09-18] MEDS: NEPRO SHAKE 237 ML CAN PO SCH (09:00)
[2019-09-18] MEDS: INSULIN -REGULAR HUMAN 50 UNIT/0.5 ML ML SQ SCH ×4 (10:01→20:25)
--- NOTE | 2019-09-18 10:04 | RAD REPORT ---
EXAM DESCRIPTION: CT - Head Brain Wo Cont - 09/18/2019 9:45 am CLINICAL HISTORY: Hemiplegia COMPARISON: September 17, 2019 TECHNIQUE: Computed axial tomography of the head was obtained. IV contrast was not requested. All CT scans are performed using dose optimization technique as appropriate and may include automated exposure control or mA/KV adjustment according to patient size. FINDINGS: An intracranial bleed is not seen . The ventricles are normal in caliber. No extra-axial fluid collection is noted. 26 millimeter low-density area within the left occipital lobe is unchanged. Small low-density area le ft frontal lobe unchanged. . Fluid within the sinuses/ mastoids is not seen. IMPRESSION: A 26 millimeter low-density area of left frontal lobe unchanged probably an acute infarc t. Small low-density area left frontal lobe could represent an additional acute infarct, old infarct or ischemic changes secondary to small vessel disease
[2019-09-18] MEDS: ZINC SULFATE 220 MG CAP PO SCH (10:24)
[2019-09-18] MEDS: TICAGRELOR 90 MG TABLET PO SCH ×2 (10:24→20:11)
[2019-09-18] MEDS: AMIODARONE HCL 200 MG TAB PO SCH (10:24)
[2019-09-18] MEDS: ATORVASTATIN 40 MG TAB PO SCH (10:25)
[2019-09-18] MEDS: FOLIC ACID 1 MG TABLET PO SCH (10:25)
[2019-09-18] MEDS: SUCRALFATE 1 GM TABLET PO SCH ×3 (10:25→20:11)
[2019-09-18] MEDS: APIXABAN 2.5 MG TABLET PO SCH ×2 (10:25→20:11)
[2019-09-18] MEDS: metroNIDAZOLE 500 MG TABLET PO SCH ×3 (10:25→20:11)
[2019-09-18] MEDS: SPIRONOLACTONE 25 MG TABLET PO SCH (10:28)
--- NOTE | 2019-09-18 10:47 | P.PN ---
Subjective Date of Service: 09/18/19 Chief Complaint: Progressive weakness and hypokalemia Patient appeared more drowsy today. The staff report she was confused last night. She has also been refusing some of her medications. She did take her Eliquis last night. Blood pressure is stable. Heart rate is in the 90s. Physical Examination - Vital Signs Temperature: 98.3 F Blood Pressure: 115/58 Pulse: 90 Respirations: 20 Pulse Ox (%): 95 - Physical Exam General: Other (Drowsy) HEENT: Mucous membr. moist/pink Neck: JVD not distended Respiratory: Clear to auscultation bilaterally, Normal air movement Cardiovascular: Normal S1 S2, Irregular heart rate/rhythm Gastrointestinal: Soft and benign, Non-distended, No tenderness Musculoskeletal: No swelling Neurological: Other (Right-sided weakness, confused.) Assessment And Plan - Current Problems (Diagnosis) (1) Acute CVA (cerebrovascular accident) Current Visit: Yes Status: Acute (2) Hypokalemia Current Visit: Yes Status: Acute (3) End stage chronic kidney disease Current Visit: Yes Status: Chronic (4) History of coronary artery stent placement Current Visit: No Status: Chronic (5) Hypertension Current Visit: No Status: Chronic Qualifiers: Hypertension type: essential hypertension Qualified Code(s): I10 - Essential (primary) hypertension (6) Colitis Current Visit: Yes Status: Acute (7) Atrial fibrillation Current Visit: No Status: Chronic Qualifiers: Atrial fibrillation type: paroxysmal Qualified Code(s): I48.0 - Paroxysmal atrial fibrillation (8) Arterial thromboembolism Current Visit: Yes Status: Acute (9) Aortic aneurysm Current Visit: Yes Status: Chronic (10) Splenic infarct Current Visit: Yes Status: Acute - Plan Continue Eliquis anticoagulation for aortic mural thrombus and splenic infarct and atrial fibrillation and acute CVA. She is also on Brilinta. Permissive hypertension Swallow evaluation Repeat head CT result reviewed and reports no change in previous acute strokes. Possible new left frontal lobe infarct. No hemorrhage reported. Electrolyte management per nephrology. Oral potassium replacement as needed, target potassium of 4. The patient also started on Aldactone. Cardiology is following Continue amiodarone. Hold metoprolol for permissive hypertension. She received a dose of digoxin for AFib with RVR last night. Discontinue oral Flagyl. Continue sucralfate Feeding as tolerated PT and OT Disposition to skilled rehab.
[2019-09-18 12:29] LABS: Potassium 4.5 mmol/L (3.5-5.1)
--- NOTE | 2019-09-18 13:02 | P.PN ---
Subjective Date of Service: 09/18/19 Chief Complaint: Progressive weakness and hypokalemia Subjective: Worsening Pt admitted with weakness and HD catheter malfuntion, comaplining of intermittent abd pain for last 3wks K 2.8 on admission Pt developed rt sided weakness today had rt sided weakness yesterday with aphasia cont Eliquis nuerology on board head CT possibly acute infract prognosis guarded Review of Systems is unable to be obtained Physical Examination - Vital Signs Temperature: 98.3 F Blood Pressure: 100/53 Pulse: 90 Respirations: 20 Pulse Ox (%): 99 - Physical Exam General: Alert, Moderate distress HEENT: Atraumatic Neck: Supple, Without JVD or thyroid abnormality Respiratory: Clear to auscultation bilaterally, Normal air movement Cardiovascular: No edema, Normal S1 S2, No gallops, No rubs, No murmurs, Irregular heart rate/rhythm Gastrointestinal: Normal bowel sounds, Soft and benign, Non-distended Musculoskeletal: No swelling Neurological: Other (Rt sided weakness), Abnormal speech Assessment And Plan - Plan ESRD on Home HD renal dose meds will ont HD MWF CVA not candidate for tPA cont Eliquis neurology on board Anemia Cont Epogen Hypokalemia cont HD with Dialysate K HTN on metoprolol and Aldactone controlled Afib now rate controlled On Eliquis and metoprolol Aortic thrombosis with splenic infraction Cont Eliquis Prognosis guarded
--- NOTE | 2019-09-18 22:55 | PN ---
Date of Progress Note: 09/17/2019 Ms. Estrella has been followed for multiple issues including atrial fibrillation that is unresponsive to amiodarone, hypertension, end-stage renal disease, had a new onset CVA yesterday despite being on Eliquis. She is also on Brilinta. She remains in atrial fibrillation in the rate anywhere from 80 to 90 that is paroxysmal. I think Ms. Estrella is a patient who had a stroke secondary to atrial fib rillation while she is on Eliquis. She is also on Brilinta. She also had a splenic infarct. We hav e to assume that the source of this is atrial fibrillation. I think we need to continue her amiodaro ne, Brilinta, and Eliquis. I think she may be a good candidate for a Watchman procedure and/or an ab lation. I think if she makes it through this episode and is able to go to [facility], I would refer to electrophysiology services to consider the above recommendations. CRISTIAN/LUIS ENRIQUE Voice ID: [id number] Report ID: [id number]
[2019-09-19 05:00] LABS: MPV 10.1 fL (7.6-11.3)
[2019-09-19 05:02] LABS: Platelet Estimate ND
[2019-09-19 05:15] LABS: Potassium 4.6 mmol/L (3.5-5.1)
[2019-09-19] MEDS: INSULIN -REGULAR HUMAN 50 UNIT/0.5 ML ML SQ SCH ×4 (07:30→20:06)
[2019-09-19] MEDS: ZINC SULFATE 220 MG CAP PO SCH (10:06)
[2019-09-19] MEDS: DOCUSATE NA 100 MG CAP PO SCH (10:06)
[2019-09-19] MEDS: FOLIC ACID 1 MG TABLET PO SCH (10:07)
[2019-09-19] MEDS: AMIODARONE HCL 200 MG TAB PO SCH (10:07)
[2019-09-19] MEDS: SPIRONOLACTONE 25 MG TABLET PO SCH (10:07)
[2019-09-19] MEDS: SUCRALFATE 1 GM TABLET PO SCH ×3 (10:08→20:05)
[2019-09-19] MEDS: ATORVASTATIN 40 MG TAB PO SCH (10:08)
[2019-09-19] MEDS: metroNIDAZOLE 500 MG TABLET PO SCH ×3 (10:09→20:05)
[2019-09-19] MEDS: APIXABAN 2.5 MG TABLET PO SCH ×2 (10:09→20:05)
[2019-09-19] MEDS: SPIRIVA IH SCH ×2 (10:10→20:06)
[2019-09-19] MEDS: TICAGRELOR 90 MG TABLET PO SCH ×2 (10:10→20:05)
[2019-09-19] MEDS: SYMBICORT IH SCH ×2 (10:10→20:06)
[2019-09-19] MEDS: NEPRO SHAKE 237 ML CAN PO SCH (10:11)
--- NOTE | 2019-09-19 10:15 | P.PN ---
Subjective Date of Service: 09/19/19 Chief Complaint: Progressive weakness and hypokalemia Subjective: Improving Pt admitted with weakness and HD catheter malfuntion, comaplining of intermittent abd pain for last 3wks K 2.8 on admission Pt developed rt sided weakness today pt is communicative today , [place] resolved HD tomorrow Speech and swallow evaluation might need alternate method of feeding prognosis guarded Physical Examination - Vital Signs Temperature: 97.9 F Blood Pressure: 130/62 Pulse: 104 Respirations: 20 Pulse Ox (%): 91 - Physical Exam General: Alert, In no apparent distress HEENT: Atraumatic, Normocephalic Neck: Supple, Other (rt dialysis catheter ), Without JVD or thyroid abnormality Respiratory: Clear to auscultation bilaterally, Normal air movement, Other (No rales or wheezes ) Cardiovascular: No edema, Regular rate/rhythm, Normal S1 S2, No gallops, No rubs , No murmurs Gastrointestinal: Normal bowel sounds, Soft and benign, Non-distended, No ascites, No tenderness, No masses Musculoskeletal: No clubbing, No swelling, No erythema Neurological: Other (Rt shoaib weakness) - Studies Microbiology Data (last 24 hrs): 09/13/19 14:47 Blood - Blood Aerobic Blood Culture - Final No growth in 5 days. 09/13/19 14:47 Blood - Blood Anaerobic Blood Culture - Final No growth in 5 days. 09/13/19 14:35 Blood - Blood Aerobic Blood Culture - Final No growth in 5 days. 09/13/19 14:35 Blood - Blood Anaerobic Blood Culture - Final No growth in 5 days. Assessment And Plan - Plan ESRD on Home HD renal dose meds will ont HD MWF CVA symptoms improved today still have residual rt sided weakness cont Eliquis neurology on board Anemia Cont Epogen Hypokalemia resolve cont HD with Dialysate K HTN on metoprolol and Aldactone controlled Afib rate controlled On Eliquis and metoprolol Aortic thrombosis with splenic infraction Cont Eliquis Prognosis guarded
--- NOTE | 2019-09-19 10:48 | P.PN ---
Subjective Date of Service: 09/19/19 Chief Complaint: Progressive weakness and hypokalemia Patient is awake today and responds appropriately. She is taking her medications crushed in a sauce. No issues overnight. Blood pressure is stable. She has been in and out of atrial fibrillation. Physical Examination - Vital Signs Temperature: 97.9 F Blood Pressure: 130/62 Pulse: 104 Respirations: 20 Pulse Ox (%): 91 - Physical Exam General: Confused, Other (Awake) HEENT: Mucous membr. moist/pink Neck: Supple Respiratory: Clear to auscultation bilaterally, Normal air movement Cardiovascular: No edema, Regular rate/rhythm Gastrointestinal: Normal bowel sounds, Soft and benign, No tenderness Musculoskeletal: No swelling Neurological: Other (Right-sided weakness.) - Studies Microbiology Data (last 24 hrs): 09/13/19 14:47 Blood - Blood Aerobic Blood Culture - Final No growth in 5 days. 09/13/19 14:47 Blood - Blood Anaerobic Blood Culture - Final No growth in 5 days. 09/13/19 14:35 Blood - Blood Aerobic Blood Culture - Final No growth in 5 days. 09/13/19 14:35 Blood - Blood Anaerobic Blood Culture - Final No growth in 5 days. Assessment And Plan - Current Problems (Diagnosis) (1) Acute CVA (cerebrovascular accident) Current Visit: Yes Status: Acute (2) Hypokalemia Current Visit: Yes Status: Acute (3) End stage chronic kidney disease Current Visit: Yes Status: Chronic (4) History of coronary artery stent placement Current Visit: No Status: Chronic (5) Hypertension Current Visit: No Status: Chronic Qualifiers: Hypertension type: essential hypertension Qualified Code(s): I10 - Essential (primary) hypertension (6) Colitis Current Visit: Yes Status: Acute (7) Atrial fibrillation Current Visit: No Status: Chronic Qualifiers: Atrial fibrillation type: paroxysmal Qualified Code(s): I48.0 - Paroxysmal atrial fibrillation (8) Arterial thromboembolism Current Visit: Yes Status: Acute (9) Aortic aneurysm Current Visit: Yes Status: Chronic (10) Splenic infarct Current Visit: Yes Status: Acute - Plan Continue Eliquis anticoagulation for aortic mural thrombus and splenic infarct and atrial fibrillation and acute CVA. She is also on Brilinta. Permissive hypertension Swallow evaluation Repeat head CT result reviewed and reports no change in previous acute strokes. Possible new left frontal lobe infarct. No hemorrhage reported. Electrolyte management per nephrology. Hypokalemia is corrected. The patient is also on Aldactone. Cardiology is following. She may be a candidate for watchman procedure. Continue amiodarone. Hold metoprolol for permissive hypertension. Continue sucralfate Feeding as tolerated PT and OT Disposition to skilled rehab.
[2019-09-19 12:01] LABS: Phosphorus < 0.1 mg/dL (2.5-4.9)
[2019-09-19] MEDS ORDERED: POTASSIUM PHOS 30 MM in NA CHLORIDE 0.9% 500 ML IV ONE (13:00)
[2019-09-20 04:36] LABS: Absolute Lymphocytes (CBC) 0.9 K/uL (0.7-4.9); Basophils % 0.3 % (0-1.3); Hematocrit 26.9 % (36.0-45.0); Lymphocytes % 10.5 % (15.3-44.8); MPV 10.1 fL (7.6-11.3); RBC Red Blood Cell Count 2.84 M/uL (3.86-4.86)
[2019-09-20] MEDS: INSULIN -REGULAR HUMAN 50 UNIT/0.5 ML ML SQ SCH ×4 (07:30→21:00)
[2019-09-20 07:36] LABS: Phosphorus 0.7 mg/dL (2.5-4.9)
[2019-09-20 07:37] LABS: Potassium 5.6 mmol/L (3.5-5.1)
[2019-09-20] MEDS ORDERED: NA CHLORIDE 0.9% IV ONE (08:00)
[2019-09-20] MEDS ORDERED: SODIUM PHOSPHATE IV ONE (08:00)
[2019-09-20] MEDS ORDERED: LORazepam 2 MG/ML VIAL IV ONE (08:29)
[2019-09-20] MEDS: metroNIDAZOLE 500 MG TABLET PO SCH ×2 (09:00→13:23)
[2019-09-20] MEDS: SUCRALFATE 1 GM TABLET PO SCH ×4 (09:00→21:12)
[2019-09-20] MEDS: APIXABAN 2.5 MG TABLET PO SCH (09:00)
[2019-09-20] MEDS: TICAGRELOR 90 MG TABLET PO SCH ×3 (09:00→21:12)
[2019-09-20] MEDS: DOCUSATE NA 100 MG CAP PO SCH (09:00)
[2019-09-20] MEDS: SYMBICORT IH SCH ×2 (09:00→21:00)
[2019-09-20] MEDS: SPIRIVA IH SCH ×2 (09:00→21:00)
[2019-09-20] MEDS: ATORVASTATIN 40 MG TAB PO SCH (09:00)
[2019-09-20] MEDS: NEPRO SHAKE 237 ML CAN PO SCH (09:00)
[2019-09-20] MEDS: ZINC SULFATE 220 MG CAP PO SCH (09:00)
[2019-09-20] MEDS: AMIODARONE HCL 200 MG TAB PO SCH (09:00)
[2019-09-20] MEDS: SPIRONOLACTONE 25 MG TABLET PO SCH (09:00)
[2019-09-20] MEDS: FOLIC ACID 1 MG TABLET PO SCH (09:00)
--- NOTE | 2019-09-20 09:09 | RAD REPORT ---
EXAM DESCRIPTION: RAD - Chest Single View - 09/20/2019 9:04 am CLINICAL HISTORY: Hypoxia Chest pain. COMPARISON: Chest Single View dated 09/15/2019; Chest Single View dated 09/15/2019; Chest Single Vie w dated 09/13/2019; Chest Single View dated 07/27/2019 FINDINGS: Portable technique limits examination quality. The lungs are mildly emphysematous. The heart is mildly enlarged in size. Right-sided venous catheter s are place. IMPRESSION: Mild COPD.
--- NOTE | 2019-09-20 09:09 | RAD REPORT ---
EXAM DESCRIPTION: MRI - Brain Wo Cont - 09/20/2019 8:48 am CLINICAL HISTORY: Right sided weakness Headache, CVA COMPARISON: Head Brain Wo Cont dated 09/18/2019; Ct Stroke Brain Wo Cont dated 09/17/2019 TECHNIQUE: Multi-sequence, multiplanar MR imaging of the brain was performed without contrast. FINDINGS: Multiple areas of acute CVA is identified.The largest distribution of the acute infarction changes are in the left MCA distribution along the left frontal and parietal lobes. There is additio nal areas of acute CVA noted in the left frontal, left occipital and right occipital lobes. No hemorr elly is seen.No hydrocephalus or midline shift. The CVA distribution pattern is unusual and raises th e possibility of embolic phenomena. Midline structures are normally formed. Mastoid air cells and paranasal sinuses are clear. IMPRESSION: Extensive nonhemorrhagic acute CVA is seen greatest in the left MCA distribution but inv olving multiple vascular territories bilaterally. Advise clinical correlation for possible embolic so urce.
[2019-09-20 09:56] LABS: Absolute Lymphocytes (CBC) 0.9 K/uL (0.7-4.9); Basophils % 0.6 % (0-1.3); Hematocrit 28.4 % (36.0-45.0); Lymphocytes % 9.8 % (15.3-44.8); MPV 10.1 fL (7.6-11.3); RBC Red Blood Cell Count 3.01 M/uL (3.86-4.86)
[2019-09-20 11:25] LABS: Protime INR 1.1
[2019-09-20] MEDS ORDERED: METOPROLOL TARTRATE 5 MG/5 ML INJ IV PRN (12:15)
[2019-09-20] MEDS: HEPARIN/D5W 25,000 UNIT/500 ML BAG IV SCH (12:41)
--- NOTE | 2019-09-20 14:05 | P.PN ---
Subjective Date of Service: 09/20/19 Chief Complaint: Progressive weakness and hypokalemia Patient is awake, confused. She is refusing to take her oral medications. No issues overnight. Blood pressure is stable. She has been in and out of atrial fibrillation. MRI of the brain completed. She could not complete dialysis today secondary to AFib with RVR. Physical Examination - Vital Signs Temperature: 97.0 F Blood Pressure: 155/78 Pulse: 122 Respirations: 26 Pulse Ox (%): 98 - Physical Exam General: Confused, Other (Awake) HEENT: PERRLA, Mucous membr. moist/pink, Sclerae nonicteric Neck: Supple, JVD not distended Respiratory: Clear to auscultation bilaterally, Normal air movement Cardiovascular: No edema, Normal S1 S2, Irregular heart rate/rhythm Gastrointestinal: Soft and benign, Tenderness (Mild epigastric tenderness) Neurological: Normal speech, Other (Right-sided weakness.) Assessment And Plan - Current Problems (Diagnosis) (1) Acute CVA (cerebrovascular accident) Current Visit: Yes Status: Acute (2) Hypokalemia Current Visit: Yes Status: Acute (3) End stage chronic kidney disease Current Visit: Yes Status: Chronic (4) History of coronary artery stent placement Current Visit: No Status: Chronic (5) Hypertension Current Visit: No Status: Chronic Qualifiers: Hypertension type: essential hypertension Qualified Code(s): I10 - Essential (primary) hypertension (6) Colitis Current Visit: Yes Status: Acute (7) Atrial fibrillation Current Visit: No Status: Chronic Qualifiers: Atrial fibrillation type: paroxysmal Qualified Code(s): I48.0 - Paroxysmal atrial fibrillation (8) Arterial thromboembolism Current Visit: Yes Status: Acute (9) Aortic aneurysm Current Visit: Yes Status: Chronic (10) Splenic infarct Current Visit: Yes Status: Acute - Plan Patient is refusing to take her oral medications Replace eliquis with heparin drip for now. Permissive hypertension Swallow evaluation MRI of the brain confirms multiple areas of acute CVA, involving both left and right hemispheres. Neurology consult requested. Hemodialysis per nephrology. Recheck potassium level to follow hyperkalemia. Cardiology is following. She may be a candidate for watchman procedure. Continue amiodarone. IV metoprolol p.r.n. for heart rate control if she refuse to take the amiodarone Continue sucralfate Feeding as tolerated PT and OT Disposition to skilled rehab. want patient to remain full code.
--- NOTE | 2019-09-20 15:20 | P.PN ---
Subjective Date of Service: 09/20/19 Chief Complaint: Progressive weakness and hypokalemia Subjective: Worsening Pt admitted with weakness and HD catheter malfuntion, comaplining of intermittent abd pain for last 3wks K 2.8 on admission Pt developed rt sided weakness today Had afib with RVR MRI : Extensive nonhemorrhagic acute CVA is seen greatest in the left MCA distribution restarted ion heparin drip low Phos due to poor oral intake , replaced might benefit from LTAC Physical Examination - Vital Signs Temperature: 97.0 F Blood Pressure: 155/78 Pulse: 122 Respirations: 26 Pulse Ox (%): 98 - Physical Exam General: Alert, Confused HEENT: Atraumatic, Normocephalic Neck: Supple, Without JVD or thyroid abnormality Respiratory: Clear to auscultation bilaterally, Normal air movement Cardiovascular: No edema, Normal pulses, Regular rate/rhythm, Normal S1 S2, No gallops, No rubs, No murmurs Gastrointestinal: Normal bowel sounds, Soft and benign, No ascites, No tenderness Musculoskeletal: No swelling Integumentary: No rashes Neurological: Other (rt sided weakness, confused ) Assessment And Plan - Plan ESRD on Home HD renal dose meds will ont HD MWF CVA recurrent episodes of confusion still have residual rt sided weakness neurology on board Extensive nonhemorrhagic acute CVA is seen greatest in the left MCA distribution but involving multiple vascular territories bilaterally neurology F/U might benefit from Coumadin Anemia Cont Epogen HTN on metoprolol and Aldactone controlled Afib had Afib with RVRV today, no rate controlled after IV metoprolol On Eliquis and metoprolol Aortic thrombosis with splenic infraction Cont Eliquis Prognosis guarded
--- NOTE | 2019-09-20 23:33 | CON ---
Reason For Consultation: Consultation called because of multiple likely cardioembolic strokes. History Of Present Illness: Ms. Estrella is a 69-year-old right-handed patient with end-st age renal disease, on hemodialysis, chronic atrial fibrillation, which has been paroxysmal, myocardia l infarction, status post cardiac stent, splenic artery infarct, diabetes mellitus type 2, who was ad mitted on September 13 for progressive weakness, hypokalemia, and overall failure to thrive. Humphrey denis reportedly had had progressive weakness a month prior to her hospitalization and was nonambulatory because of diffuse weakness, but was able to communicate with and family effectively. She di d have progressively decreasing oral intake and abdominal pain and was found to have severe hypokalem ia to around 2.7. On her admission on the , she was on Eliquis at a lower dose 2.5 mg twice a da y because of her renal functioning. She was seen by Cardiology with recommendations for atrial fibri llation to be addressed by cardioversion and to continue on amiodarone. Over second or third day of admission, she had progressively less interaction and communication; and on the , head CT scan wa s done and it showed areas of diminished attenuation in the deep periventricular white matter in the frontal lobe and in the posterior lateral left occipital lobe suggestive of nonhemorrhagic strokes. At that point, there was less use of the right upper and lower extremity and potentially a right faci al droop. Head CT scan done the following day on the identified a 26 mm area of acute stroke in the left frontal lobe and small area of infarct also identified in the occipital lobe as indicated i n the previous CT scan with progressive aphasia and more difficulty swallowing, following commands, m oving right side, and being able to communicate effectively. Brain MRI was on the and it showed extensive nonhemorrhagic acute strokes, largest in the left MCA distribution, but involving multiple vascular territories including the left occipital lobe, the right occipital lobe, and left frontal l obe, and it was very classic for cardioembolic strokes given the patient's atrial fibrillation, which is paroxysmal and her Eliquis being 2.5 mg twice a day. The cardioembolic source is actually very l ikely. At this point, the patient was still placed on a full code status with patient's , who I communicated with, wanted everything to be done for her including the potential for tube feeding, for electric shock, for intubation if the patient does have a coding. Past Medical History: As indicated, includes the coronary artery disease, diabetes mellitus, end-sta ge renal disease, hemodialysis, hypertension, dyslipidemia, chronic obstructive pulmonary disease. Surgical History: Multiple cardiac stents, appendectomy, hysterectomy. Social History: Patient is , lives at home with her . No alcohol, tobacco, or IV drug use. Allergies: PLAVIX. Home Medications: Amiodarone 200 mg daily, Eliquis 2.5 mg daily, Lipitor 40 mg at bedtime, Symbicort 2 puffs twice daily, Prevacid 20 mg daily, Januvia 25 mg daily, prednisone 10 mg daily, Colace 100 m g daily, doxycycline 100 mg twice daily, ferrous sulfate 325 mg twice daily, folate 1 mg daily, hydra lazine 25 mg twice daily, Brilinta 90 mg twice daily, Coreg 25 mg twice daily. Family History: Noncontributory. Review of Systems: Not able to perform. Patient does not answer questions. She may smile or give yes or no, but no mor e expanded answers. Physical Examination: Vital Signs: Blood pressure 145/71, pulse is 97, ranging up to 122, temperature 98.7, respiratory ra te range up to 16-22. Weight 126.5, height 5 feet 6 inches, BMI 20.4. General: Ms. Estrella is resting in bed. She is alert. She tracks visually, may smile and say yes or no, but no real meaningful communication. HEENT: She is normocephalic, atraumatic. Sclerae anicteric. Oropharynx is moist and pink. Neck: Supple. Chest: Clear. Heart: Irregularly irregular. Abdomen: Soft. Extremities: No significant edema, cyanosis, or clubbing. Neurological: She is alert. She does not follow simple commands. She did not move her left arm to command, but spontaneously moved it to rub her nose. Did not move the right or left leg or the right arm to command or stimulation. Her face does show a decrease in the right nasolabial fold. There i s fair excursion when she attempts to smile and when you smile too in front of her. Unable to assess her coordination. Her tone is more decreased in the right upper and lower extremity. Reflexes depr essed in all extremities. Unable to assess coordination and gait. Laboratory Studies: White blood cell count 9.4, hemoglobin 9.0, hematocrit 28.4, platelets 194. INR now is 1.1, PTT 81.3. Sodium 138, potassium 4.2, chloride 105, carbon dioxide 26, BUN 34, creatinin e 4.88, glucose ranged from 93 to 118. Lactic acid 1.0. Procalcitonin 0.97. Phosphorus is very low at 0.7, calcium 8.0. Her liver function studies are unremarkable and she has hepatitis panel pendin g. Chest x-ray on the shows mild COPD pattern. Note, code status is full code. Assessment: Ms. Estrella is a 69-year-old patient, who has extensive cardioembolic strokes with end- stage renal disease, on hemodialysis, diabetes mellitus type 2, hypertension, chronic obstructive pul monary disease, and significant neurological deficits of entire right side appearing flaccid, left le g flaccid, and left arm mobile, but unable to fully assess strength. She also has marked aphasia bot h expressive and comprehension-related aphasias, also significant right nasolabial fold issues and kadie humphreys will have significant swallowing difficulties. The patient's indicates that he wants ev erything done including tubes placed such as NG tube and potential PEG tube and he wants her to remai n a full code and have everything done for her. Plan: 1.Recommend NG tube placement and likely the patient will need a PEG tube long-term depending on her response to follow instructions for a swallow evaluation and the ability to protect her airway. At this point, should be n.p.o. until those things have been addressed adequately. 2.She will require extensive physical and occupational therapy to begin recovery from her extensive strokes. 3.Recommendation will be to keep INR between 2.5 and 3.5 for protection against additional cardioemb olic strokes. 4.Her atrial fibrillation may be addressed per cardiac team, which if need be cardioversion versus r ate control as needed. 5.She should have some mild permissive hypertension during this time. Keep blood pressures not lowe r than 135 or 140 if possible and only lower blood pressure if systolic is greater than 180. 6.Patient will probably require long-term assistance in care, perhaps longterm in the interim may be appropriate. DARLENE/LUIS ENRIQUE Voice ID: [id number] Report ID: [id number]
[2019-09-21 05:51] LABS: Basophils % 0.7 % (0-1.3); Hematocrit 26.4 % (36.0-45.0); Lymphocytes % 13.5 % (15.3-44.8); MPV 9.6 fL (7.6-11.3); RBC Red Blood Cell Count 2.79 M/uL (3.86-4.86)
[2019-09-21 06:06] LABS: Potassium 4.8 mmol/L (3.5-5.1)
[2019-09-21] MEDS: INSULIN -REGULAR HUMAN 50 UNIT/0.5 ML ML SQ SCH ×4 (07:30→21:00)
[2019-09-21] MEDS ORDERED: METOPROLOL TARTRATE 5 MG/5 ML INJ IV ONE (08:29)
[2019-09-21] MEDS: SPIRIVA IH SCH ×2 (09:00→21:00)
[2019-09-21] MEDS: SYMBICORT IH SCH ×2 (09:00→21:00)
[2019-09-21] MEDS: NEPRO SHAKE 237 ML CAN PO SCH (09:00)
[2019-09-21] MEDS: SPIRONOLACTONE 25 MG TABLET PO SCH (11:54)
[2019-09-21] MEDS: SUCRALFATE 1 GM TABLET PO SCH ×3 (11:55→21:00)
[2019-09-21] MEDS: ZINC SULFATE 220 MG CAP PO SCH (11:55)
[2019-09-21] MEDS: FOLIC ACID 1 MG TABLET PO SCH (11:55)
[2019-09-21] MEDS: TICAGRELOR 90 MG TABLET PO SCH ×2 (11:55→21:00)
[2019-09-21] MEDS: DOCUSATE NA 100 MG CAP PO SCH (11:56)
[2019-09-21] MEDS: AMIODARONE HCL 200 MG TAB PO SCH (11:56)
[2019-09-21] MEDS: ATORVASTATIN 40 MG TAB PO SCH (11:56)
[2019-09-21 12:16] LABS: Protime INR 1.01
--- NOTE | 2019-09-21 16:03 | P.PN ---
Subjective Date of Service: 09/21/19 Chief Complaint: Progressive weakness and hypokalemia Subjective: No new changes Pt admitted with weakness and HD catheter malfunction, comaplining of intermittent abd pain for last 3wks K 2.8 on admission Pt developed rt sided weakness today had Afib with RVR during HD improved after IV metoprolol HR better controlled now possible PEG placement pn or Friday started on Coumadin Physical Examination - Vital Signs Temperature: 97.2 F Blood Pressure: 146/60 Pulse: 105 Respirations: 21 Pulse Ox (%): 100 - Physical Exam General: In no apparent distress, Oriented x1 HEENT: Atraumatic, Normocephalic Neck: Supple, JVD not distended, Without JVD or thyroid abnormality Respiratory: Clear to auscultation bilaterally, Normal air movement Cardiovascular: No edema, Regular rate/rhythm, Normal S1 S2, No gallops, No rubs , No murmurs Gastrointestinal: Normal bowel sounds, Soft and benign, Non-distended, No ascites, No tenderness Musculoskeletal: No swelling Integumentary: No rashes, No erythema Neurological: Other (sided, weakness, AOX1 ) Assessment And Plan - Plan ESRD on Home HD renal dose meds next HD on F CVA recurrent episodes of confusion still have residual rt sided weakness neurology on board Extensive nonhemorrhagic acute CVA is seen greatest in the left MCA distribution but involving multiple vascular territories bilaterally neurology F/U on heparin and bridge with Coumadin pending PEG placement Anemia Cont Epogen HTN on metoprolol and Aldactone controlled Afib had Afib with RVRV today, no rate controlled after IV metoprolol on heparin and bridge with Coumadin Aortic thrombosis with splenic infraction Cont anticoagulation Prognosis guarded
--- NOTE | 2019-09-21 16:29 | P.PN ---
Subjective Date of Service: 09/21/19 Chief Complaint: Progressive weakness and hypokalemia Subjective: No new changes Patient is awake, but confused and appeared lethargic. She keeps refusing to take her oral medications and spits them out. Blood pressure is stable. She is afebrile. Fecal occult blood is positive. She is now moderately hypertensive. Physical Examination - Vital Signs Temperature: 97.2 F Blood Pressure: 146/60 Pulse: 105 Respirations: 21 Pulse Ox (%): 100 - Physical Exam General: Confused, Other (Awake) HEENT: Normocephalic, EOMI, Sclerae nonicteric Neck: JVD not distended Respiratory: Clear to auscultation bilaterally, Normal air movement Cardiovascular: No edema, Irregular heart rate/rhythm Gastrointestinal: Soft and benign, Non-distended, No tenderness Musculoskeletal: No swelling Neurological: Other (Right-sided weakness, left side preference.) Assessment And Plan - Current Problems (Diagnosis) (1) Acute CVA (cerebrovascular accident) Current Visit: Yes Status: Acute (2) Hypokalemia Current Visit: Yes Status: Acute (3) End stage chronic kidney disease Current Visit: Yes Status: Chronic (4) History of coronary artery stent placement Current Visit: No Status: Chronic (5) Hypertension Current Visit: No Status: Chronic Qualifiers: Hypertension type: essential hypertension Qualified Code(s): I10 - Essential (primary) hypertension (6) Colitis Current Visit: Yes Status: Acute (7) Atrial fibrillation Current Visit: No Status: Chronic Qualifiers: Atrial fibrillation type: paroxysmal Qualified Code(s): I48.0 - Paroxysmal atrial fibrillation (8) Arterial thromboembolism Current Visit: Yes Status: Acute (9) Aortic aneurysm Current Visit: Yes Status: Chronic (10) Splenic infarct Current Visit: Yes Status: Acute - Plan Neurology input appreciated Patient is refusing to take her oral medications Continue heparin drip and Coumadin. Permissive hypertension Swallow evaluation if the patient can follow instruction Insert NGT for medication and feeding for now. I met with the family-, son and daughgter. They wants PEG tube if it comes to that. GI consult for PEG tube placement when they become available. Hemodialysis per nephrology. Cardiology is following. She may be a candidate for watchman procedure. Continue amiodarone. IV metoprolol p.r.n. for heart rate control if she refuse to take the amiodarone Continue sucralfate PT and OT Disposition to skilled rehab. Cause bandages preferring long term home placement to LTAC. Poor prognosis. want patient to remain full code.
[2019-09-21] MEDS ORDERED: HEPARIN 5000 UNIT/ML 1 ML VIAL ONE (16:59)
[2019-09-21] MEDS ORDERED: HEPARIN 5000 UNIT/ML 1 ML VIAL IV SCH (17:00)
[2019-09-21] MEDS: WARFARIN SODIUM 1 MG TAB PO SCH (17:00)
[2019-09-21] MEDS: HEPARIN/D5W 25,000 UNIT/500 ML BAG IV SCH (17:02)
[2019-09-21] MEDS ORDERED: INSULIN GLARGINE 100 UNITS/ML SQ ONE (20:44)
[2019-09-22 04:40] LABS: Absolute Lymphocytes (CBC) 0.9 K/uL (0.7-4.9); Hematocrit 24.3 % (36.0-45.0); Lymphocytes % 12.9 % (15.3-44.8); MPV 9.8 fL (7.6-11.3); RBC Red Blood Cell Count 2.56 M/uL (3.86-4.86)
[2019-09-22 05:59] VITALS: BMI 20.5
[2019-09-22] MEDS: INSULIN -REGULAR HUMAN 50 UNIT/0.5 ML ML SQ SCH ×3 (07:30→17:00)
[2019-09-22] MEDS: SUCRALFATE 1 GM TABLET PO SCH ×3 (09:00→21:00)
[2019-09-22] MEDS: TICAGRELOR 90 MG TABLET PO SCH ×2 (09:00→21:00)
[2019-09-22] MEDS: AMIODARONE HCL 200 MG TAB PO SCH (09:00)
[2019-09-22] MEDS: FOLIC ACID 1 MG TABLET PO SCH (09:00)
[2019-09-22] MEDS: SYMBICORT IH SCH ×2 (09:00→21:00)
[2019-09-22] MEDS: DOCUSATE NA 100 MG CAP PO SCH (09:00)
[2019-09-22] MEDS: SPIRIVA IH SCH ×2 (09:00→21:00)
[2019-09-22] MEDS: ZINC SULFATE 220 MG CAP PO SCH (09:00)
[2019-09-22] MEDS: SPIRONOLACTONE 25 MG TABLET PO SCH (09:00)
[2019-09-22] MEDS: ATORVASTATIN 40 MG TAB PO SCH (09:00)
[2019-09-22] MEDS: NEPRO SHAKE 237 ML CAN PO SCH (09:00)
[2019-09-22] MEDS ORDERED: D5 0.9 NS 1,000 ML IV SCH (09:00)
[2019-09-22] MEDS ORDERED: GLUCAGON 1 MG/VIAL IM PRN (09:22)
[2019-09-22] MEDS ORDERED: DEXTROSE 10%-WATER 500 ML IV PRN (09:22)
[2019-09-22] MEDS ORDERED: D50W 25 GM/50 ML SYRINGE/VIAL IV PRN (09:22)
[2019-09-22 09:44] LABS: Hematocrit 26.4 % (36.0-45.0)
[2019-09-22 10:01] LABS: Absolute Lymphocytes (CBC) 0.9 K/uL (0.7-4.9); Basophils % 0.7 % (0-1.3); Hematocrit 26.6 % (36.0-45.0); Lymphocytes % 13.7 % (15.3-44.8); MPV 10.1 fL (7.6-11.3); RBC Red Blood Cell Count 2.77 M/uL (3.86-4.86)
--- NOTE | 2019-09-22 10:09 | P.PN ---
Subjective Date of Service: 09/22/19 Chief Complaint: Progressive weakness and hypokalemia Patient is lethargic. Confused and unable to comprehend and obey commands. She is still refusing to take her oral medications. Blood pressure is stable. She is afebrile. Noted a mild drop in hemoglobin. The nursing staff reports difficulty inserting NGT yesterday. Physical Examination - Vital Signs Temperature: 97.7 F Blood Pressure: 136/66 Pulse: 72 Respirations: 16 Pulse Ox (%): 100 - Physical Exam General: Other (Lethargic) HEENT: PERRLA, EOMI Neck: Supple Respiratory: Clear to auscultation bilaterally, Normal air movement Cardiovascular: No edema, Normal S1 S2, Irregular heart rate/rhythm Gastrointestinal: Soft and benign, Tenderness (Mild tenderness in the upper abdomen.) Musculoskeletal: No swelling Neurological: Other (Right-sided weakness, confused, aphasic.) Assessment And Plan - Current Problems (Diagnosis) (1) Acute CVA (cerebrovascular accident) Current Visit: Yes Status: Acute (2) Hypokalemia Current Visit: Yes Status: Acute (3) End stage chronic kidney disease Current Visit: Yes Status: Chronic (4) History of coronary artery stent placement Current Visit: No Status: Chronic (5) Hypertension Current Visit: No Status: Chronic Qualifiers: Hypertension type: essential hypertension Qualified Code(s): I10 - Essential (primary) hypertension (6) Colitis Current Visit: Yes Status: Acute (7) Atrial fibrillation Current Visit: No Status: Chronic Qualifiers: Atrial fibrillation type: paroxysmal Qualified Code(s): I48.0 - Paroxysmal atrial fibrillation (8) Arterial thromboembolism Current Visit: Yes Status: Acute (9) Aortic aneurysm Current Visit: Yes Status: Chronic (10) Splenic infarct Current Visit: Yes Status: Acute - Plan Patient keep refusing her oral medications. Noted and dropping hemoglobin. There is a concern for GI bleed. Continue heparin drip. Hold Coumadin. Monitor H&H q.6 hrs. Will start anticoagulation if her hemoglobin drops further. Permissive hypertension Swallow evaluation if the patient can follow instruction We will attempt NGT insertion again today. She needs her oral medications especially amiodarone. Start TPN Family wants PEG tube insertion GI consult for PEG tube placement when they become available. Hemodialysis per nephrology. Cardiology is following. She may be a candidate for watchman procedure. IV metoprolol p.r.n. for heart rate control if she refuse to take the amiodarone Continue sucralfate. Start IV Protonix. PT and OT Disposition to skilled rehab. is preferring snf home placement to LTAC. Poor prognosis.
[2019-09-22 10:18] LABS: Magnesium 1.9 mg/dL (1.8-2.4); Phosphorus 4.2 mg/dL (2.5-4.9); Potassium 4.1 mmol/L (3.5-5.1); Prealbumin 12.6 mg/dL (20-40)
[2019-09-22] MEDS: PANTOPRAZOLE 40 MG INJ IVP SCH ×2 (10:38→20:35)
[2019-09-22 12:22] LABS: Hematocrit 25.3 % (36.0-45.0)
--- NOTE | 2019-09-22 15:19 | P.PN ---
Subjective Date of Service: 09/22/19 Chief Complaint: Progressively weakness and hypokalemia Subjective: New changes Pt admitted with weakness and HD catheter malfunction, comaplining of intermittent abd pain for last 3wks K 2.8 on admission Pt developed rt sided weakness today no change in clinical ststus, awake but not oriented or communcative poor oral inatke possible PEG placement on or Friday started on Coumadin H/H dropping monitor CBC Physical Examination - Vital Signs Temperature: 97.0 F Blood Pressure: 115/67 Pulse: 82 Respirations: 18 Pulse Ox (%): 98 - Physical Exam General: Alert, Oriented x1 HEENT: Atraumatic, Normocephalic Neck: Supple, JVD not distended, Without JVD or thyroid abnormality Respiratory: Clear to auscultation bilaterally, Normal air movement Cardiovascular: Regular rate/rhythm, Normal S1 S2, No gallops, No rubs, No murmurs, Edema Gastrointestinal: Normal bowel sounds, Soft and benign, No ascites, No tenderness Musculoskeletal: No clubbing, Swelling Integumentary: No rashes Assessment And Plan - Plan ESRD on Home HD renal dose meds next HD tomorrow CVA recurrent episodes of confusion still have residual rt sided weakness neurology on board Extensive nonhemorrhagic acute CVA is seen greatest in the left MCA distribution but involving multiple vascular territories bilaterally neurology F/U on heparin and bridge with Coumadin pending PEG placement Anemia Cont Epogen HTN on metoprolol and Aldactone controlled Afib had Afib with RVRV today, no rate controlled after IV metoprolol on heparin and bridge with Coumadin guaiac +ve , HB slightly dropped Aortic thrombosis with splenic infraction Cont anticoagulation Prognosis guarded
[2019-09-22] MEDS: AA 5%/D20W/ELECTROLYTES-TPN 2,000 ML, Lipids 20% 250 ML with MULTIVITAMINS INJ 10 ML IV SCH ×3 (16:37)
[2019-09-22] MEDS: WARFARIN SODIUM 1 MG TAB PO SCH (16:43)
[2019-09-22 18:08] LABS: Hematocrit 25.4 % (36.0-45.0)
[2019-09-22] MEDS: SODIUM CHLORIDE 0.9% 10ML INJ IV PRN (20:37)
[2019-09-22] MEDS: HEPARIN/D5W 25,000 UNIT/500 ML BAG IV SCH (20:43)
[2019-09-23] MEDS: INSULIN -REGULAR HUMAN 50 UNIT/0.5 ML ML SQ SCH ×4 (00:32→18:43)
[2019-09-23 00:52] LABS: Hematocrit 23.7 % (36.0-45.0)
[2019-09-23 06:07] LABS: Absolute Lymphocytes (CBC) 0.9 K/uL (0.7-4.9); Hematocrit 23.2 % (36.0-45.0); Lymphocytes % 14.4 % (15.3-44.8); MPV 9.7 fL (7.6-11.3); RBC Red Blood Cell Count 2.44 M/uL (3.86-4.86)
[2019-09-23 06:23] LABS: Potassium 4.1 mmol/L (3.5-5.1)
--- NOTE | 2019-09-23 08:09 | EKG ---
Test Date: 2019-09-22 Test Time: 22:16:00 Early Childhood Education Coordinator: RAYSA MEASUREMENT RESULTS: Intervals: Rate: 96 LA: 158 QRSD: 136 QT: 392 QTc: 495 [place]: P: 80 LA: 158 QRS: 57 T: 248 INTERPRETIVE STATEMENTS: Sinus rhythm with premature atrial complexes Nonspecific intraventricular block Marked ST abnormality, possible anterior subendocardial injury Abnormal ECG Compared to ECG 09/13/2019 21:08:46 Atrial premature complex(es) now present ST (T wave) deviation now present Atrial flutter no longer present Right bundle-branch block no longer present Myocardial infarct finding no longer present T-wave abnormality no longer present Possible ischemia no longer present Electronically Signed On 09-23-19 08:08:13 STRUCTURES MECHANIC by Henry Bates
[2019-09-23] MEDS: SYMBICORT IH SCH ×2 (09:00→21:00)
[2019-09-23] MEDS: DOCUSATE NA 100 MG CAP PO SCH (09:00)
[2019-09-23] MEDS: NEPRO SHAKE 237 ML CAN PO SCH (09:00)
[2019-09-23] MEDS: SUCRALFATE 1 GM TABLET PO SCH ×3 (09:00→21:00)
[2019-09-23] MEDS: ATORVASTATIN 40 MG TAB PO SCH (09:00)
[2019-09-23] MEDS: AMIODARONE HCL 200 MG TAB PO SCH (09:00)
[2019-09-23] MEDS: TICAGRELOR 90 MG TABLET PO SCH ×2 (09:00→21:00)
[2019-09-23] MEDS: FOLIC ACID 1 MG TABLET PO SCH (09:00)
[2019-09-23] MEDS: SPIRONOLACTONE 25 MG TABLET PO SCH (09:00)
[2019-09-23] MEDS: ZINC SULFATE 220 MG CAP PO SCH (09:00)
[2019-09-23] MEDS: SPIRIVA IH SCH ×2 (09:00→21:00)
[2019-09-23 10:23] LABS: Absolute Lymphocytes (CBC) 0.9 K/uL (0.7-4.9); Basophils % 0.9 % (0-1.3); Hematocrit 24.5 % (36.0-45.0); Lymphocytes % 12.8 % (15.3-44.8); RBC Red Blood Cell Count 2.59 M/uL (3.86-4.86)
[2019-09-23] MEDS: EPOETIN 4,000 UNIT/ML VIAL IV SCH (11:16)
--- NOTE | 2019-09-23 11:56 | P.PN ---
Subjective Date of Service: 09/23/19 Chief Complaint: Progressively weakness and hypokalemia Subjective: No new changes Pt admitted with weakness and HD catheter malfunction, comaplaining of intermittent abd pain for last 3wks K 2.8 on admission Pt developed rt sided weakness , MRI with massive no hemorrhagic infract today no change in clinical status seen and examined during HD poor oral inatke , started on TPN possible PEG placement started on Coumadin H/H stable now if BP cont to be elevated after HD will add amlodipine monitor CBC Physical Examination - Vital Signs Temperature: 97.2 F Blood Pressure: 175/72 Pulse: 82 Respirations: 21 Pulse Ox (%): 97 - Physical Exam General: Alert, In no apparent distress, Oriented x1 HEENT: Atraumatic, Normocephalic, EOMI Neck: Supple, Without JVD or thyroid abnormality Respiratory: Clear to auscultation bilaterally, Normal air movement Cardiovascular: Regular rate/rhythm, Normal S1 S2, No gallops, No rubs, No murmurs, Edema Gastrointestinal: Normal bowel sounds, Soft and benign, Non-distended, No ascites, No tenderness Musculoskeletal: Swelling Integumentary: No rashes, No breakdown Neurological: Other (non communicative, AAOX1) Assessment And Plan - Plan ESRD on Home HD renal dose meds next HD on Friday CVA with Rt sided weakness neurology on board Extensive nonhemorrhagic acute CVA is seen greatest in the left MCA distribution but involving multiple vascular territories bilaterally neurology F/U on heparin and bridge with Coumadin pending PEG placement Anemia Cont Epogen HTN today elevated on metoprolol and Aldactone if BP cont to be elevated after HD will add amlodipine controlled Afib rate controlled now on heparin and bridge with Coumadin Aortic thrombosis with splenic infraction Cont anticoagulation Prognosis guarded
--- NOTE | 2019-09-23 12:46 | P.PN ---
Subjective Date of Service: 09/23/19 Chief Complaint: Progressively weakness and hypokalemia Subjective: Other (unable to verbalize , open eyes to voice and tracks) Review of Systems is unable to be obtained Physical Examination - Vital Signs Temperature: 97.2 F Blood Pressure: 175/72 Pulse: 82 Respirations: 21 Pulse Ox (%): 97 - Physical Exam General: Alert, Unresponsive HEENT: Atraumatic, Normocephalic Neck: Supple, Without JVD or thyroid abnormality Respiratory: Normal air movement, Crackles/rales Cardiovascular: No edema, Normal S1 S2, Irregular heart rate/rhythm Gastrointestinal: Normal bowel sounds, Soft and benign Musculoskeletal: Clubbing, Swelling (right LE and UE, ) Neurological: Abnormal strength (flaccid right UE/LE, lle), Abnormal tone Urinary: Dialysis catheter, Nagel catheter - Studies Laboratory Last Values WBC 7.4 K/uL (4.3-10.9) 09/23/19 09:50 RBC 2.59 M/uL (3.86-4.86) L 09/23/19 09:50 Hgb 8.0 g/dL (12.0-15.0) L 09/23/19 09:50 Hct 24.5 % (36.0-45.0) L 09/23/19 09:50 MCV 94.4 fL (80-100) 09/23/19 09:50 MCH 30.7 pg (27.0-35.0) 09/23/19 09:50 MCHC 32.5 g/dL (32.0-36.0) 09/23/19 09:50 RDW 19.3 % (12.1-15.2) H 09/23/19 09:50 Plt Count 161 K/uL (152-406) 09/23/19 09:50 MPV 10.0 fL (7.6-11.3) 09/23/19 09:50 Plt Distribution Width Cancelled 09/16/19 05:00 Neutrophils % 77.7 % (41.7-73.7) H 09/23/19 09:50 Lymphocytes % 12.8 % (15.3-44.8) L 09/23/19 09:50 Monocytes % 7.3 % (3.3-12.3) 09/23/19 09:50 Eosinophils % 1.3 % (0-4.4) 09/23/19 09:50 Basophils % 0.9 % (0-1.3) 09/23/19 09:50 Megakaryocytes % Cancelled 09/14/19 16:45 Absolute Neutrophils 5.7 K/uL (1.8-8.0) 09/23/19 09:50 Segmented Neutrophils 90 % (40-80) H 09/16/19 04:50 Band Neutrophils 1 % (0-1) 09/16/19 04:50 Absolute Lymphocytes 0.9 K/uL (0.7-4.9) 09/23/19 09:50 Lymphocytes 6 % (15-42) L 09/16/19 04:50 Monocytes 3 % (0-10) 09/16/19 04:50 Absolute Monocytes 0.5 K/uL (0.1-1.3) 09/23/19 09:50 Absolute Eosinophils 0.1 K/uL (0-0.5) 09/23/19 09:50 Absolute Basophils 0.1 K/uL (0-0.5) 09/23/19 09:50 Diff Path Review Cancelled 09/22/19 09:22 WBC/PLT Morphology Cancelled 09/14/19 16:45 Platelet Estimate Cancelled 09/14/19 16:45 Clumped Platelets Few 09/16/19 04:50 Giant Platelets Cancelled 09/14/19 16:45 Poikilocytosis 1+ 09/14/19 16:45 Anisocytosis 1+ 09/17/19 04:46 Morphology Comment Noted (NOT SEEN) 09/17/19 04:46 PT 11.9 SECONDS (9.5-12.5) 09/21/19 11:05 INR 1.01 09/21/19 11:05 APTT 52.9 SECONDS (24.3-36.9) H 09/23/19 05:55 Sodium 134 mmol/L (136-145) L 09/23/19 05:50 Potassium 4.1 mmol/L (3.5-5.1) 09/23/19 05:50 Chloride 100 mmol/L (98-107) 09/23/19 05:50 Carbon Dioxide 27 mmol/L (21-32) 09/23/19 05:50 BUN 34 mg/dL (7-18) H 09/23/19 05:50 Creatinine 4.49 mg/dL (0.55-1.3) H 09/23/19 05:50 Estimated GFR 10 mL/min (=/>90) L 09/23/19 05:50 Glucose 171 mg/dL (74-106) H 09/23/19 05:50 POC Glucose 140 mg/dl (65-120) H 09/23/19 12:12 Lactic Acid 1.0 mmol/L (0.4-2.0) 09/20/19 09:30 Calcium 7.8 mg/dL (8.5-10.1) L 09/23/19 05:50 Phosphorus 4.2 mg/dL (2.5-4.9) 09/22/19 09:40 Magnesium 1.9 mg/dL (1.8-2.4) 09/22/19 09:40 Total Bilirubin 0.4 mg/dL (0.2-1.0) 09/13/19 14:47 Direct Bilirubin 0.1 mg/dL (0-0.2) 09/13/19 14:47 AST 18 U/L (15-37) 09/13/19 14:47 ALT 14 U/L (12-78) 09/13/19 14:47 Alkaline Phosphatase 85 U/L (45-117) 09/13/19 14:47 Creatine Kinase 33 U/L (26-192) 09/13/19 14:47 CK-MB (CK-2) 1.8 ng/mL (0.3-3.6) 09/13/19 14:47 Rapid Troponin I 0.13 ng/mL (0.0-0.045) H 09/13/19 14:47 Troponin I 0.30 ng/mL (0.0-0.045) H 09/14/19 08:25 Serum Total Protein 6.5 g/dL (6.4-8.2) 09/13/19 14:47 Albumin 2.0 g/dL (3.4-5.0) L 09/13/19 14:47 Globulin 4.5 g/dL (2.3-3.5) H 09/13/19 14:47 Albumin/Globulin Ratio 0.4 (1.1-1.8) L 09/13/19 14:47 Prealbumin 12.6 mg/dL (20-40) L 09/22/19 09:40 Triglycerides 168 mg/dL (<150) H 09/22/19 09:40 Lipase 138 U/L (73-393) 09/13/19 14:47 Procalcitonin 0.97 ng/mL (<0.50) H 09/20/19 09:30 Urine RBC Cancelled 09/13/19 14:27 Urine WBC Cancelled 09/13/19 14:27 Ur Squamous Epith Cells Cancelled 09/13/19 14:27 Ur Urothelial Cells Cancelled 09/13/19 14:27 Calcium Oxalate Crystal Cancelled 09/13/19 14:27 Uric Acid Crystals Cancelled 09/13/19 14:27 Triple Phos Crystals Cancelled 09/13/19 14:27 Other Crystals Cancelled 09/13/19 14:27 Amorphous Sediment Cancelled 09/13/19 14:27 Glitter Cells Cancelled 09/13/19 14:27 Urine Bacteria Cancelled 09/13/19 14:27 Hyaline Casts Cancelled 09/13/19 14:27 Fine Granular Casts Cancelled 09/13/19 14:27 Coarse Granular Casts Cancelled 09/13/19 14:27 Waxy Casts Cancelled 09/13/19 14:27 RBC Casts Cancelled 09/13/19 14:27 WBC Casts Cancelled 09/13/19 14:27 Urine Mucus Cancelled 09/13/19 14:27 Urine Other Cancelled 09/13/19 14:27 Urine Trichomonas Cancelled 09/13/19 14:27 Urine Yeast Cancelled 09/13/19 14:27 Ur Yeast w Hyphae Cancelled 09/13/19 14:27 Urine Yeast (Budding) Cancelled 09/13/19 14:27 Urine Sperm Cancelled 09/13/19 14:27 Urine Culture Reflexed Cancelled 09/13/19 14:27 Urine Total Volume Cancelled 09/13/19 14:27 Medications List Reviewed: Yes Assessment & Plan - Problems (Diagnosis) (1) Acute CVA (cerebrovascular accident) Current Visit: Yes Status: Acute (2) Arterial thromboembolism Current Visit: Yes Status: Acute (3) Colitis Current Visit: Yes Status: Acute (4) Hypokalemia Current Visit: Yes Status: Acute (5) Rapid atrial fibrillation Current Visit: Yes Status: Acute (6) Splenic infarct Current Visit: Yes Status: Acute (7) Aortic aneurysm Current Visit: Yes Status: Chronic (8) End stage chronic kidney disease Current Visit: Yes Status: Chronic Discharge Plan: Long Term Plan to discharge in: 48 Hours - Code Status/Comfort Care Code Status Assessed: Yes Code Status: Full Code Physician Review: Patient Assessed, Agree with Above Assessment and Plan Physician Review Additional Text: # atrial fib with RVR- on amiodarone - recent multiple embolic with left MCA CVA and splenic infarcts -on heparin gtt - will hold couamdin for now since plan for peg tube , can resume or start eliquis after peg placement # Dysphagia- on po intake but no speech eval note seen -will consult speech stat today -keep NPO for now - even if patient passes speech eval but given extensive motro involvement of her new CVA , doubt she is able to swallow - will consult surgery for peg tube placement now - c/w TPN for now until peg tube # 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
[2019-09-23 12:55] LABS: Platelet Estimate ADEQ
[2019-09-23 12:56] LABS: Anisocytosis 1+; Basophilic Stippling 1+; Blood Morphology Comment NOTED (NOT SEEN); Hypochromasia 1+; Polychromasia 1+; Urine White Blood Cell Casts OK
[2019-09-23] MEDS: PANTOPRAZOLE 40 MG INJ IVP SCH ×2 (15:22→22:03)
[2019-09-23 17:58] LABS: Hematocrit 25.6 % (36.0-45.0)
[2019-09-23] MEDS: AA 5%/D20W/ELECTROLYTES-TPN 2,000 ML, Lipids 20% 250 ML with MULTIVITAMINS INJ 10 ML IV SCH ×3 (17:59)
[2019-09-23 20:08] LABS: HBsAG Nonreactive (Nonreactive)
[2019-09-23] MEDS: SODIUM CHLORIDE 0.9% 10ML INJ IV PRN (22:04)
[2019-09-24] MEDS: INSULIN -REGULAR HUMAN 50 UNIT/0.5 ML ML SQ SCH ×4 (00:19→18:29)
[2019-09-24 01:40] LABS: Hematocrit 25.7 % (36.0-45.0)
[2019-09-24 06:34] LABS: Basophils % 0.9 % (0-1.3); Hematocrit 23.8 % (36.0-45.0); MPV 10.4 fL (7.6-11.3); RBC Red Blood Cell Count 2.53 M/uL (3.86-4.86)
[2019-09-24 06:50] LABS: Protime INR 0.91
[2019-09-24 06:57] LABS: Albumin 1.6 g/dL (3.4-5.0); Bilirubin Total 0.4 mg/dL (0.2-1.0); Protein, Total 5.6 g/dL (6.4-8.2)
[2019-09-24] MEDS ORDERED: propofoL 200 MG/20 ML VIAL IV ONE (07:04)
[2019-09-24] MEDS ORDERED: SIMETHICONE 40 MG/ 0.6 ML ONE (07:35)
[2019-09-24] MEDS ORDERED: NA CHLORIDE 0.9% 1,000 ML ONE (07:36)
[2019-09-24] MEDS ORDERED: Phenylephrine HCl 10 MG/ML 1 ML VIAL ONE (07:48)
[2019-09-24] MEDS ORDERED: EPHEDRINE SULF 50 MG/ML VIAL ONE (07:48)
[2019-09-24] MEDS ORDERED: NS 0.9% VIAL 0 ML ONE (07:48)
[2019-09-24] MEDS ORDERED: ESMOLOL HCL 0 ML IV ONE (07:48)
[2019-09-24] MEDS ORDERED: ETOMIDATE 20 MG/10 ML VIAL IV ONE (07:51)
--- NOTE | 2019-09-24 08:24 | ENDO RPT ---
[address], [address] EGD WITH PEG PROCEDURE REPORT EXAM DATE: 09/24/2019 PATIENT NAME: Cindi Mccallum V. MR #: [id number] BIRTHDATE: 1950 ATTENDING: Tin Mcgrath DR STATUS: inpatient - 7 DOW[employer]ER OPERATOR: Jimenez Ponce and Lucinda Ivy RN INDICATIONS: The patient is a 69 yr old Female here for an EGD with PEG due to dysphagia and malnutrition PROCEDURE PERFORMED: EGD-PEG MEDICATIONS: Per Anesthesia. TOPICAL ANESTHETIC: none CONSENT: The patient understands the risks and benefits of the procedure and understands that these risks include, but are not limited to: sedation, allergic reaction, infection, perforation and/or bleeding. Alternative means of evaluation and treatment include, among others: physical exam, x-rays, and/or surgical intervention. The patient elects to proceed with this endoscopic procedure. DESCRIPTION OF PROCEDURE: During intra-op preparation period all mechanical medical equipment was checked for proper function. Hand hygiene and appropriate measures for infection prevention was taken. After the risks, benefits and alternatives of the procedure were thoroughly explained, Informed consent was verified, confirmed and timeout was successfully executed by the treatment team. The patient was anesthetized with topical anesthesia and the [id number] ([id number]) endoscope was introduced through the mouth and advanced to the pylorus. The instrument was slowly withdrawn as the mucosa was fully examined. The stomach was entered and closely examined. The antrum, angularis, and lesser curvature were well visualized, including a retroflexed view of the cardia and fundus. The stomach wall was normally distensable. The scope passed easily through the pylorus into the duodenum. The stomach was then inflated with air, and by a combination of transillumination and manual palpation, the site for the gastrostomy tube placement was selected and marked on the anterior abdominal wall. The skin of the anterior abdomen was surgically prepped and draped with sterile towels. Utilizing strict sterile technique, the selected site was then anesthetized with 1% xylocaine by injection into the skin and subcutaneous tissue. A 1 cm incision was made through the skin and subcutaneous tissue, and the needle/cannula assembly was then passed through the abdominal wall and through the anterior wall of the stomach, maintaining visualization with the endoscope. A snare device previously placed through the instrument channel was then opened and placed around the cannula, the needle was removed, and the insertion wire was passed through the cannula and into the stomach lumen. The snare was then loosened from the cannula, and repositioned to snare the insertion wire. The snare was then pulled up to the endoscope distal tip, and the scope was then withdrawn bringing with it the snare and insertion wire. The insertion wire was then released from the snare, and then loop-attached to the PEG PULL gastrostomy tube. Using the pull technique, the G-tube was then pulled into place by traction on the insertion wire at the abdominal wall end. The G-tube insertion site was then cleansed once again, and the external bolster was placed over the tube to secure it to the abdominal wall. A sterile dressing was then applied, and the procedure terminated. Retroflexion was not performed. The gastroscope was then slowly withdrawn and removed. ADVERSE EVENT: There were no complications. IMPRESSIONS: Normal stomach RECOMMENDATIONS: 1. no treatment 2. begin feeding tomorrow REPEAT EXAM: Tin Mcgrath DR eSigned: Tin Mcgrath DR 09/24/2019 8:23 AM cc: CPT CODES: ICD9 CODES: PATIENT NAME: Cindi Mccallum V. MR#: [id number]
[2019-09-24] MEDS: SUCRALFATE 1 GM TABLET PO SCH ×3 (08:36→21:29)
[2019-09-24] MEDS: DOCUSATE NA 100 MG CAP PO SCH (08:36)
[2019-09-24] MEDS: FOLIC ACID 1 MG TABLET PO SCH (08:36)
[2019-09-24] MEDS: SYMBICORT IH SCH ×2 (08:36→21:00)
[2019-09-24] MEDS: NEPRO SHAKE 237 ML CAN PO SCH (08:37)
[2019-09-24] MEDS: ZINC SULFATE 220 MG CAP PO SCH (08:37)
[2019-09-24] MEDS: SPIRIVA IH SCH ×2 (08:37→21:00)
[2019-09-24] MEDS: ATORVASTATIN 40 MG TAB PO SCH (09:00)
[2019-09-24] MEDS: SPIRONOLACTONE 25 MG TABLET PO SCH (09:00)
[2019-09-24] MEDS: TICAGRELOR 90 MG TABLET PO SCH ×2 (09:00→21:29)
[2019-09-24] MEDS: PANTOPRAZOLE 40 MG INJ IVP SCH ×2 (09:00→21:28)
[2019-09-24] MEDS: AMIODARONE HCL 200 MG TAB PO SCH (09:00)
[2019-09-24 09:30] LABS: Platelet Estimate ADEQ
--- NOTE | 2019-09-24 11:48 | P.PN ---
Subjective Date of Service: 09/24/19 Chief Complaint: Progressively weakness and hypokalemia Subjective: No C/O voiced, NPO (s/p peg tube placement today - still non verbal -spouse at bedside d/w) Review of Systems 10-point ROS is otherwise unremarkable Physical Examination - Vital Signs Temperature: 97.9 F Blood Pressure: 165/77 Pulse: 89 Respirations: 20 Pulse Ox (%): 93 - Physical Exam General: Alert, In no apparent distress HEENT: Atraumatic, Normocephalic Neck: Supple, 2+ carotid pulse no bruit, JVD not distended Respiratory: Clear to auscultation bilaterally, Normal air movement Cardiovascular: No edema, Normal pulses Gastrointestinal: Normal bowel sounds, Soft and benign Musculoskeletal: No clubbing, No swelling Integumentary: No rashes, No breakdown Neurological: Normal gait, Normal speech - Studies Laboratory Last Values WBC 6.5 K/uL (4.3-10.9) 09/24/19 05:58 RBC 2.53 M/uL (3.86-4.86) L 09/24/19 05:58 Hgb 7.7 g/dL (12.0-15.0) L* 09/24/19 05:58 Hct 23.8 % (36.0-45.0) L 09/24/19 05:58 MCV 94.1 fL (80-100) 09/24/19 05:58 MCH 30.5 pg (27.0-35.0) 09/24/19 05:58 MCHC 32.4 g/dL (32.0-36.0) 09/24/19 05:58 RDW 19.6 % (12.1-15.2) H 09/24/19 05:58 Plt Count 157 K/uL (152-406) 09/24/19 05:58 MPV 10.4 fL (7.6-11.3) 09/24/19 05:58 Plt Distribution Width Cancelled 09/16/19 05:00 Neutrophils % 75.5 % (41.7-73.7) H 09/24/19 05:58 Lymphocytes % 16.0 % (15.3-44.8) 09/24/19 05:58 Monocytes % 6.7 % (3.3-12.3) 09/24/19 05:58 Eosinophils % 0.9 % (0-4.4) 09/24/19 05:58 Basophils % 0.9 % (0-1.3) 09/24/19 05:58 Megakaryocytes % Cancelled 09/14/19 16:45 Absolute Neutrophils 4.9 K/uL (1.8-8.0) 09/24/19 05:58 Segmented Neutrophils 90 % (40-80) H 09/16/19 04:50 Band Neutrophils 1 % (0-1) 09/16/19 04:50 Absolute Lymphocytes 1.0 K/uL (0.7-4.9) 09/24/19 05:58 Lymphocytes 6 % (15-42) L 09/16/19 04:50 Monocytes 3 % (0-10) 09/16/19 04:50 Absolute Monocytes 0.4 K/uL (0.1-1.3) 09/24/19 05:58 Absolute Eosinophils 0.1 K/uL (0-0.5) 09/24/19 05:58 Absolute Basophils 0.1 K/uL (0-0.5) 09/24/19 05:58 Diff Path Review Cancelled 09/22/19 09:22 WBC/PLT Morphology Cancelled 09/14/19 16:45 Platelet Estimate Cancelled 09/14/19 16:45 Clumped Platelets Few 09/16/19 04:50 Giant Platelets Cancelled 09/14/19 16:45 Polychromasia 1+ 09/23/19 05:50 Poikilocytosis 1+ 09/14/19 16:45 Hypochromasia 1+ 09/23/19 05:50 Basophilic Stippling 1+ 09/23/19 05:50 Anisocytosis 1+ 09/23/19 05:50 Morphology Comment Noted (NOT SEEN) 09/23/19 05:50 PT 10.8 SECONDS (9.5-12.5) 09/24/19 05:58 INR 0.91 09/24/19 05:58 APTT 26.1 SECONDS (24.3-36.9) 09/24/19 05:58 Sodium 136 mmol/L (136-145) 09/24/19 05:58 Potassium 4.0 mmol/L (3.5-5.1) 09/24/19 05:58 Chloride 102 mmol/L (98-107) 09/24/19 05:58 Carbon Dioxide 28 mmol/L (21-32) 09/24/19 05:58 BUN 25 mg/dL (7-18) H 09/24/19 05:58 Creatinine 3.03 mg/dL (0.55-1.3) H D 09/24/19 05:58 Estimated GFR 15 mL/min (=/>90) L 09/24/19 05:58 Glucose 189 mg/dL (74-106) H 09/24/19 05:58 POC Glucose 162 mg/dl (65-120) H 09/24/19 05:14 Lactic Acid 1.0 mmol/L (0.4-2.0) 09/20/19 09:30 Calcium 7.6 mg/dL (8.5-10.1) L 09/24/19 05:58 Phosphorus 4.2 mg/dL (2.5-4.9) 09/22/19 09:40 Magnesium 1.9 mg/dL (1.8-2.4) 09/22/19 09:40 Total Bilirubin 0.4 mg/dL (0.2-1.0) 09/24/19 05:58 Direct Bilirubin 0.1 mg/dL (0-0.2) 09/13/19 14:47 AST 10 U/L (15-37) L 09/24/19 05:58 ALT 12 U/L (12-78) 09/24/19 05:58 Alkaline Phosphatase 56 U/L (45-117) 09/24/19 05:58 Creatine Kinase 33 U/L (26-192) 09/13/19 14:47 CK-MB (CK-2) 1.8 ng/mL (0.3-3.6) 09/13/19 14:47 Rapid Troponin I 0.13 ng/mL (0.0-0.045) H 09/13/19 14:47 Troponin I 0.30 ng/mL (0.0-0.045) H 09/14/19 08:25 Serum Total Protein 5.6 g/dL (6.4-8.2) L 09/24/19 05:58 Albumin 1.6 g/dL (3.4-5.0) L 09/24/19 05:58 Globulin 4.0 g/dL (2.3-3.5) H 09/24/19 05:58 Albumin/Globulin Ratio 0.4 (1.1-1.8) L 09/24/19 05:58 Prealbumin 12.6 mg/dL (20-40) L 09/22/19 09:40 Triglycerides 168 mg/dL (<150) H 09/22/19 09:40 Lipase 138 U/L (73-393) 09/13/19 14:47 Procalcitonin 0.97 ng/mL (<0.50) H 09/20/19 09:30 Urine Color Cancelled 09/23/19 20:10 Urine Appearance Cancelled 09/23/19 20:10 Urine pH Cancelled 09/23/19 20:10 Ur Specific [place] Cancelled 09/23/19 20:10 Urine Ketones Cancelled 09/23/19 20:10 Urine Blood Cancelled 09/23/19 20:10 Urine Nitrite Cancelled 09/23/19 20:10 Urine Bilirubin Cancelled 09/23/19 20:10 Urine Urobilinogen Cancelled 09/23/19 20:10 Ur Leukocyte Esterase Cancelled 09/23/19 20:10 Urine RBC Cancelled 09/23/19 20:10 Urine WBC Cancelled 09/23/19 20:10 Ur Squamous Epith Cells Cancelled 09/23/19 20:10 Ur Urothelial Cells Cancelled 09/13/19 14:27 Calcium Oxalate Crystal Cancelled 09/13/19 14:27 Uric Acid Crystals Cancelled 09/13/19 14:27 Triple Phos Crystals Cancelled 09/13/19 14:27 Other Crystals Cancelled 09/13/19 14:27 Amorphous Sediment Cancelled 09/13/19 14:27 Glitter Cells Cancelled 09/13/19 14:27 Urine Bacteria Cancelled 09/23/19 20:10 Hyaline Casts Cancelled 09/13/19 14:27 Fine Granular Casts Cancelled 09/13/19 14:27 Coarse Granular Casts Cancelled 09/13/19 14:27 Waxy Casts Cancelled 09/13/19 14:27 RBC Casts Cancelled 09/13/19 14:27 WBC Casts Cancelled 09/13/19 14:27 Urine Mucus Cancelled 09/23/19 20:10 Urine Other Cancelled 09/13/19 14:27 Urine Trichomonas Cancelled 09/13/19 14:27 Urine Yeast Cancelled 09/13/19 14:27 Ur Yeast w Hyphae Cancelled 09/13/19 14:27 Urine Yeast (Budding) Cancelled 09/13/19 14:27 Urine Sperm Cancelled 09/13/19 14:27 Urine Culture Reflexed Cancelled 09/23/19 20:10 Urine Total Volume Cancelled 09/13/19 14:27 Urine Glucose Cancelled 09/23/19 20:10 Urine Total Protein Cancelled 09/23/19 20:10 Hep Bs Antigen Nonreactive (Nonreactive) 09/17/19 16:30 Hep Bs Antibody Nonreactive (Nonreactive) 09/17/19 16:30 Hep Bs Antibody, Quant <5 mIU/mL (>=10) L 09/17/19 16:30 Hep B Core Total Ab Nonreactive (Nonreactive) 09/17/19 16:30 Medications List Reviewed: Yes Assessment & Plan - Problems (Diagnosis) (1) Acute CVA (cerebrovascular accident) Current Visit: Yes Status: Acute (2) Arterial thromboembolism Current Visit: Yes Status: Acute (3) Colitis Current Visit: Yes Status: Acute (4) Hypokalemia Current Visit: Yes Status: Acute (5) Rapid atrial fibrillation Current Visit: Yes Status: Acute (6) Splenic infarct Current Visit: Yes Status: Acute (7) Aortic aneurysm Current Visit: Yes Status: Chronic (8) End stage chronic kidney disease Current Visit: Yes Status: Chronic Physician Review: Patient Assessed, Agree with Above Assessment and Plan Physician Review Additional Text: # atrial fib with RVR- rate controlled , c/w on amiodarone - s/p recent multiple embolic with left MCA CVA and splenic infarcts - c/w heparin gtt - will restart now since post peg - start Eliquis in am # Dysphagia-s/p Peg tube placed today -start TF with Nepro in am # 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
--- NOTE | 2019-09-24 12:49 | CON ---
Date of Consultation: 09/23/2019 Brief History Of Present Illness: Patient is a 69-year-old female with a history of end-st age renal disease, on hemodialysis; chronic atrial fibrillation, on anticoagulation with a history of IA, status post stents; diabetes, who presents to the emergency department with progressive weakness over 1 month on 09/13/2019. She had been admitted with failure to thrive essentially and during her admission, she had a stroke, CVA requiring full anticoagulation. Her recovery from the stroke is di fficult and she has dysphagia and inability to tolerate adequate p.o., and she is noncompliant with i nstructions and as such a swallow study could not be performed adequately. Therefore, her nutritiona l status is unknown and as such, it was recommended that the patient receive a feeding access and I w as consulted for the above-stated issue. Past Medical History: Significant for hypertension; coronary artery disease; chronic atrial fibrilla tion, on chronic anticoagulation; diabetes; hyperlipidemia; COPD. Past Surgical History: Cardiac stents, appendectomy, hysterectomy. Home Medications: Include amiodarone, Eliquis, Lipitor, Symbicort, Pepcid, Colace, folic acid, Apres oline, Brilinta, Coreg, Lasix, isosorbide dinitrate, Raglan, Januvia, Carafate, Spiriva, and zinc sul fate. Review of Systems: Unable to obtain as patient is nonverbal. Physical Examination: General: At the time of my examination, she is awake, but nonverbal. HEENT: Otherwise normocephalic. Sclerae anicteric. Mucous membranes are moist. Oropharynx clear. Neck: Supple. No JVD. Chest: Normal expansion and excursion. Cardiovascular: No edema. Pulses are equal in bilateral upper and lower extremities. Abdomen: Soft, nontender, nondistended. No rebound. No guarding. No peritonitis. Laboratory Data: She had a laboratory exam, which reveals a white blood cell count of 6.5, hemoglobi n is 7.7, hematocrit 23.9, platelet count is 157. Her coags showed a PT 10.8, INR 0.91, PTT 26.1. C hemistry shows a sodium 136, potassium 4.0, chloride 102, carbon dioxide 28, BUN 25, creatinine 3.0, glucose is 189. She had imaging which included a brain MRI on 07/21, which confirmed the stroke, spe cifically extensive and nonhemorrhagic acute CVA is seen greatest in the left MCA distribution, but i nvolving multiple vascular territories bilaterally, this is an embolic source possibly. Assessment And Plan: This is a 69-year-old female with new onset stroke, dysphagia, and inability to tolerate p.o. I have spoken to her regarding the risks, benefits, and alternatives of place ment of percutaneous endoscopic gastrostomy (PEG) tube for feeding access as well as medication admin istration including but not limited to bleeding, infection, damage to surrounding tissues, need furth er operation and procedures, the patient agrees to proceed as indicated. JENNIFER/LUIS ENRIQUE Voice ID: [id number] Report ID: [id number]
[2019-09-24 12:51] LABS: Absolute Lymphocytes (CBC) 1.2 K/uL (0.7-4.9); Basophils % 0.5 % (0-1.3); Hematocrit 23.5 % (36.0-45.0); Lymphocytes % 16.9 % (15.3-44.8); MPV 10.1 fL (7.6-11.3); RBC Red Blood Cell Count 2.51 M/uL (3.86-4.86)
[2019-09-24 13:22] LABS: Protime INR 0.89
[2019-09-24] MEDS ORDERED: HEPARIN 5000 UNIT/ML 1 ML VIAL IV ONE (14:00)
[2019-09-24] MEDS: HEPARIN/D5W 25,000 UNIT/500 ML BAG IV SCH (14:19)
[2019-09-24] MEDS: METOPROLOL XL 50 MG TAB PO SCH (18:07)
[2019-09-24] MEDS: AA 5%/D20W/ELECTROLYTES-TPN 2,000 ML, Lipids 20% 250 ML with MULTIVITAMINS INJ 10 ML IV SCH ×3 (18:07)
[2019-09-24] MEDS ORDERED: APIXABAN 2.5 MG TABLET PO SCH (21:00)
--- NOTE | 2019-09-25 00:20 | PN ---
Date of Progress Note: 09/24/2019 Chief Complaint: Severe acute kidney injury on chronic kidney disease. Patient remains dialysis dep endent. She developed stroke during this admission. She had a PEG tube placed today. She is recove ring from stroke. She has aphasia, cannot communicate and cannot provide review of systems. Patient was treated with IV metoprolol for AFib with rapid ventricular response. Heart rate improved. Patient is started on Coumadin. Review of Systems: Patient cannot provide review of systems. Physical Examination: Lungs: Clear to auscultation bilaterally. Heart: S1, S2. Abdomen: Soft, benign. Extremities: No edema. Impression And Plan: 1.End-stage renal disease. Patient will continue dialysis. 2.Stroke, status post PEG placement. 3.Atrial fibrillation. Continue Coumadin. Patient is on systemic anticoagulation. 4.Renal osteodystrophy. Monitor phosphorus level. Adjust binders. 5.Anemia of chronic kidney disease. Continue ELIZABETH. ISMAEL/LUIS ENRIQUE Voice ID: [id number] Report ID: [id number]
[2019-09-25] MEDS: INSULIN -REGULAR HUMAN 50 UNIT/0.5 ML ML SQ SCH ×5 (00:45→18:00)
[2019-09-25] MEDS ORDERED: HEPARIN 5000 UNIT/ML 1 ML VIAL IV SCH ×2 (01:00→07:00)
[2019-09-25 05:14] LABS: Absolute Lymphocytes (CBC) 1.1 K/uL (0.7-4.9); Basophils % 1.6 % (0-1.3); Hematocrit 23.4 % (36.0-45.0); Lymphocytes % 14.1 % (15.3-44.8); MPV 9.9 fL (7.6-11.3); RBC Red Blood Cell Count 2.48 M/uL (3.86-4.86)
[2019-09-25 05:16] LABS: Protime INR 0.98
[2019-09-25 05:35] LABS: Albumin 1.6 g/dL (3.4-5.0); Bilirubin Total 0.3 mg/dL (0.2-1.0); Potassium 4.3 mmol/L (3.5-5.1); Protein, Total 5.6 g/dL (6.4-8.2)
[2019-09-25] MEDS: METOPROLOL XL 50 MG TAB PO SCH (05:37)
[2019-09-25] MEDS ORDERED: FUROSEMIDE 40 MG/4 ML VIAL IV ONE (08:29)
[2019-09-25] MEDS: SPIRIVA IH SCH ×2 (09:00→20:54)
[2019-09-25] MEDS: SYMBICORT IH SCH ×2 (09:00→20:54)
[2019-09-25] MEDS: SPIRONOLACTONE 25 MG TABLET PO SCH (09:37)
[2019-09-25] MEDS: TICAGRELOR 90 MG TABLET PO SCH ×2 (09:37→20:54)
[2019-09-25] MEDS: AMIODARONE HCL 200 MG TAB PO SCH (09:38)
[2019-09-25] MEDS: APIXABAN 2.5 MG TABLET PO SCH ×2 (09:38→20:54)
[2019-09-25] MEDS: SUCRALFATE 1 GM TABLET PO SCH ×3 (09:38→20:53)
[2019-09-25] MEDS: ZINC SULFATE 220 MG CAP PO SCH (09:38)
[2019-09-25] MEDS: DOCUSATE NA 100 MG CAP PO SCH (09:38)
[2019-09-25] MEDS: FOLIC ACID 1 MG TABLET PO SCH (09:38)
[2019-09-25] MEDS: PANTOPRAZOLE 40 MG INJ IVP SCH ×2 (09:39→20:53)
[2019-09-25] MEDS: ATORVASTATIN 40 MG TAB PO SCH (09:40)
--- NOTE | 2019-09-25 12:01 | P.PN ---
Subjective Date of Service: 09/25/19 Chief Complaint: Progressively weakness and hypokalemia Subjective: Other Review of Systems is unable to be obtained Physical Examination - Vital Signs Temperature: 98.1 F Blood Pressure: 142/64 Pulse: 89 Respirations: 18 Pulse Ox (%): 90 - Physical Exam General: Alert, Delirious HEENT: Atraumatic, Normocephalic, PERRLA Neck: Supple, 2+ carotid pulse no bruit Respiratory: Clear to auscultation bilaterally, Normal air movement Cardiovascular: No edema, Regular rate/rhythm, Normal S1 S2 Gastrointestinal: Normal bowel sounds, Soft and benign Musculoskeletal: No clubbing, No swelling Neurological: Other - Studies Medications List Reviewed: Yes Assessment & Plan - Problems (Diagnosis) (1) Acute CVA (cerebrovascular accident) Current Visit: Yes Status: Acute (2) Arterial thromboembolism Current Visit: Yes Status: Acute (3) Colitis Current Visit: Yes Status: Acute (4) Hypokalemia Current Visit: Yes Status: Acute (5) Rapid atrial fibrillation Current Visit: Yes Status: Acute (6) Splenic infarct Current Visit: Yes Status: Acute (7) Aortic aneurysm Current Visit: Yes Status: Chronic (8) End stage chronic kidney disease Current Visit: Yes Status: Chronic Physician Review: Patient Assessed, Agree with Above Assessment and Plan Physician Review Additional Text: # atrial fib with RVR- - will dc heparin gtt now and start Eliquis - rate controlled , c/w on amiodarone -09/23- s/p recent multiple embolic with left MCA CVA and splenic infarcts # Dysphagia-s/p Peg tube ,start TF with Nepro # 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
[2019-09-25] MEDS: EPOETIN 4,000 UNIT/ML VIAL IV SCH (15:03)
[2019-09-25] MEDS: SODIUM CHLORIDE 0.9% 10ML INJ IV PRN (20:56)
--- NOTE | 2019-09-26 03:10 | PN ---
Date of Progress Note: 09/25/2019 Chief Complaint: Severe acute kidney injury on advanced chronic kidney disease. History Of Present Illness: Patient remains dialysis dependent. Patient developed acute CVA during this admission and was evaluated by neurology team. Patient has PEG tube placement. She has severe dysphagia. She is encephalopathic and cannot answer question. She has aphasia. Patient has history of atrial fibrillation. She remains on beta edelmira and amiodarone. Patient was started on Coumadin. Review of Systems: Unobtainable. Physical Examination: Lungs: Clear to auscultation bilaterally. Heart: S1, S2. Abdomen: Soft, benign. Extremities: Slight edema. Impression And Plan: 1.End-stage renal disease, mild fluid overload. Dialysis will be done today with ultrafiltration. Monitor electrolytes during dialysis. 2.Dysphagia, history of recent stroke. Continue p.o. feeding. Monitor electrolytes. 3.Renal osteodystrophy. Monitor phosphorus level. Adjust treatment accordingly. 4.Anemia of chronic kidney disease. Continue ELIZABETH. 5.Stroke, status post PEG placement. Continue tube feeding. ISMAEL/LUIS ENRIQUE Voice ID: [id number] Report ID: [id number]
[2019-09-26] MEDS: METOPROLOL XL 50 MG TAB PO SCH (05:07)
[2019-09-26 05:36] LABS: Absolute Lymphocytes (CBC) 0.9 K/uL (0.7-4.9); Basophils % 1.3 % (0-1.3); Lymphocytes % 9.4 % (15.3-44.8); MPV 10.5 fL (7.6-11.3); RBC Red Blood Cell Count 2.56 M/uL (3.86-4.86)
[2019-09-26] MEDS: INSULIN -REGULAR HUMAN 50 UNIT/0.5 ML ML SQ SCH ×4 (06:00→18:00)
[2019-09-26] MEDS: SPIRIVA IH SCH ×2 (09:00→20:31)
[2019-09-26] MEDS: SYMBICORT IH SCH ×2 (09:00→20:31)
[2019-09-26] MEDS ORDERED: NA CHLORIDE 0.9% 250 ML IV SCH (10:00)
[2019-09-26] MEDS: PANTOPRAZOLE 40 MG INJ IVP SCH ×2 (10:05→20:30)
[2019-09-26] MEDS: TICAGRELOR 90 MG TABLET PO SCH ×2 (10:08→20:30)
[2019-09-26] MEDS: SPIRONOLACTONE 25 MG TABLET PO SCH (10:08)
[2019-09-26] MEDS: DOCUSATE NA 100 MG CAP PO SCH (10:09)
[2019-09-26] MEDS: SUCRALFATE 1 GM TABLET PO SCH ×3 (10:09→20:29)
[2019-09-26] MEDS: FOLIC ACID 1 MG TABLET PO SCH (10:09)
[2019-09-26] MEDS: AMIODARONE HCL 200 MG TAB PO SCH (10:09)
[2019-09-26] MEDS: ATORVASTATIN 40 MG TAB PO SCH (10:09)
[2019-09-26] MEDS: APIXABAN 2.5 MG TABLET PO SCH ×2 (10:09→21:46)
[2019-09-26] MEDS: ZINC SULFATE 220 MG CAP PO SCH (10:10)
[2019-09-26] MEDS: ONDANSETRON 4 MG/2 ML VIAL IV PRN (10:38)
[2019-09-26] MEDS: METOPROLOL XL 100 MG TAB PO SCH (12:44)
--- NOTE | 2019-09-26 12:50 | P.PN ---
Subjective Date of Service: 09/26/19 Chief Complaint: Progressively weakness and hypokalemia Subjective: NPO (-still non verbal - noted with vomiting this am) Physical Examination - Vital Signs Temperature: 98.8 F Blood Pressure: 160/70 Pulse: 104 Respirations: 22 Pulse Ox (%): 92 - Physical Exam General: Alert, Other (non verbal) HEENT: Atraumatic, Normocephalic Neck: Supple, 2+ carotid pulse no bruit Respiratory: Clear to auscultation bilaterally, Normal air movement Cardiovascular: Normal pulses, Regular rate/rhythm Gastrointestinal: Normal bowel sounds, Soft and benign, Other (peg) Neurological: Abnormal strength, Abnormal tone - Studies Medications List Reviewed: Yes Assessment & Plan - Problems (Diagnosis) (1) Acute CVA (cerebrovascular accident) Current Visit: Yes Status: Acute (2) Arterial thromboembolism Current Visit: Yes Status: Acute (3) Colitis Current Visit: Yes Status: Acute (4) Hypokalemia Current Visit: Yes Status: Acute (5) Rapid atrial fibrillation Current Visit: Yes Status: Acute (6) Splenic infarct Current Visit: Yes Status: Acute (7) Aortic aneurysm Current Visit: Yes Status: Chronic (8) End stage chronic kidney disease Current Visit: Yes Status: Chronic Physician Review: Patient Assessed, Agree with Above Assessment and Plan Physician Review Additional Text: # Dysphagia - on TF now -noted with vomiting today - will hold TF and reduce rater to 20cc/hr later today - zofran now - start low dose reglan to increase gastric motility # Atrial fib with RVR- - on Eliquis and amiodarone -increase Toprol -09/23- s/p recent multiple embolic with left MCA CVA and splenic infarcts # New left MCA distribution CVA - with right paraparesis and LLE weakness- follow plan for SNF # HTN -still elevated , increase Toprol # ESRD- on HD -now TTS -follow renal team # Anemia of CKD-still low , will give 1 unit PRBC today since still tachycardia - consider increase Epogen # Advance directive -still full code per spouse # Dispo - follow plan for SNF
[2019-09-26] MEDS: METOCLOPRAMIDE 5 MG TAB FT SCH ×2 (18:01→20:30)
[2019-09-27 01:22] LABS: Hematocrit 28.4 % (36.0-45.0)
--- NOTE | 2019-09-27 02:49 | PN ---
Date of Progress Note: 09/26/2019 Chief Complaint: End-stage renal disease. History Of Present Illness: Patient is on chronic dialysis 3 times per week. Patient developed acce lerated chronic kidney disease secondary to ATN and cardiorenal syndrome. Patient has history of atr ial fibrillation. She remains on amiodarone and beta-edelmira for rate control. She underwent dialys is yesterday. Procedure was well tolerated. Patient remained hemodynamically stable. Review of Systems: Patient cannot provide review of systems. She is recovering from stroke. She has severe expressive aphasia. Physical Examination: Lungs: Clear to auscultation bilaterally. Heart: S1, S2. Abdomen: Soft, benign. Extremities: Minimal edema. Impression And Plan: 1.Acute cerebrovascular accident per primary team, end-stage renal disease. Patient has advanced ch ronic kidney disease, accelerated by acute kidney injury, likely has end-stage renal disease. Contin ue treatment with dialysis. Monitor electrolytes. 2.Status post severe dysphagia, altered mental status. Patient had PEG tube placed for nutrition. 3.Rapid atrial fibrillation. Continue beta-edelmira. 4.Cerebrovascular accident. Patient is bedbound and she has severe expressive aphasia. Further rec ommendation from Neurology. EB/MODL Voice ID: [id number] Report ID: [id number]
[2019-09-27] MEDS: METOPROLOL XL 100 MG TAB PO SCH (05:06)
[2019-09-27 05:21] LABS: Absolute Lymphocytes (CBC) 0.7 K/uL (0.7-4.9); Basophils % 0.9 % (0-1.3); Hematocrit 28.6 % (36.0-45.0); MPV 10.4 fL (7.6-11.3); RBC Red Blood Cell Count 3.19 M/uL (3.86-4.86)
[2019-09-27 05:33] LABS: Potassium 4.1 mmol/L (3.5-5.1)
[2019-09-27] MEDS: INSULIN -REGULAR HUMAN 50 UNIT/0.5 ML ML SQ SCH ×4 (05:45→18:00)
[2019-09-27 08:32] LABS: Blood Morphology Comment NOT SEEN (NOT SEEN); Platelet Estimate ADEQ
[2019-09-27] MEDS: SYMBICORT IH SCH ×2 (09:00→21:00)
[2019-09-27] MEDS: SPIRIVA IH SCH ×2 (09:00→21:00)
[2019-09-27] MEDS: SUCRALFATE 1 GM TABLET PO SCH ×3 (10:07→20:50)
[2019-09-27] MEDS: TICAGRELOR 90 MG TABLET PO SCH ×2 (10:07→20:50)
[2019-09-27] MEDS: SPIRONOLACTONE 25 MG TABLET PO SCH (10:07)
[2019-09-27] MEDS: AMIODARONE HCL 200 MG TAB PO SCH (10:07)
[2019-09-27] MEDS: DOCUSATE NA 100 MG CAP PO SCH (10:07)
[2019-09-27] MEDS: METOCLOPRAMIDE 5 MG TAB FT SCH ×4 (10:07→20:50)
[2019-09-27] MEDS: ATORVASTATIN 40 MG TAB PO SCH (10:08)
[2019-09-27] MEDS: APIXABAN 2.5 MG TABLET PO SCH ×2 (10:08→20:50)
[2019-09-27] MEDS: ZINC SULFATE 220 MG CAP PO SCH (10:08)
[2019-09-27] MEDS: PANTOPRAZOLE 40 MG INJ IVP SCH ×2 (10:08→20:47)
[2019-09-27] MEDS: FOLIC ACID 1 MG TABLET PO SCH (10:08)
--- NOTE | 2019-09-27 12:11 | P.PN ---
Subjective Date of Service: 09/27/19 Primary Care Provider: unknown Chief Complaint: Progressively weakness and hypokalemia Subjective: Other (Patient stable this time. Patient with aphasia.) Physical Examination - Vital Signs Temperature: 98.5 F Blood Pressure: 140/65 Pulse: 76 Respirations: 18 Pulse Ox (%): 96 - Physical Exam General: Alert, Other (Patient with aphasia) HEENT: Atraumatic Neck: Supple Respiratory: Clear to auscultation bilaterally, Normal air movement Cardiovascular: Irregular heart rate/rhythm (AFib rate controlled) Gastrointestinal: Normal bowel sounds, Other (PEG tube in place) Neurological: Other (Patient bed-bound.) - Studies Medications List Reviewed: Yes Assessment & Plan Discharge Plan: Other (care home facility) Plan to discharge in: 48 Hours Physician Review Additional Text: Impression: Atrial fibrillation with RVR Left MCA distribution CVA with right-sided gurwinder paresis and left lower extremity weakness complicated with aphasia Dysphagia status post PEG tube placement Hypertension End-stage renal disease on hemodialysis Anemia of chronic disease Plan: Atrial fibrillation with RVR: Continue amiodarone and Eliquis. Patient also on metoprolol. Continue monitor closely. Left MCA distribution CVA with right-sided gurwinder paresis and left lower extremity weakness complicated with aphasia: Patient appears debilitated. Poor prognosis noted. Case address at length with concerning plan of care including advanced directives. considering DNR status. Spoke with director social welfare about plan of care. is hoping patient will qualify for skilled placement. willing to pay for PEG tube feeds. will make a final decision on advanced directives. appears realistic about her prognosis. would consider DNR status and hospice. He will decide within the next 24 hr. Dysphagia status post PEG tube placement: Will dietary evaluate and continued tube feeds. Hypertension: Continue medication End-stage renal disease on hemodialysis: Continue dialysis. Anemia of chronic disease: Patient has received transfusion. Will monitor closely. Patient may require further transfusion. Time Spent Managing Pts Care (In Minutes): 55
[2019-09-27] MEDS: NEPRO 1,000 ML BOT RTH SCH (14:45)
[2019-09-27] MEDS: SODIUM CHLORIDE 0.9% 10ML INJ IV PRN (20:47)
--- NOTE | 2019-09-28 02:54 | PN ---
Date of Progress Note: 09/27/2019 Chief Complaint: Severe acute kidney injury, end-stage renal disease. History Of Present Illness: Patient remains dialysis dependent. Patient developed accelerated chron ic kidney disease secondary to ATN and cardiorenal syndrome. Patient has history of atrial fibrillat ion. She remains on amiodarone and beta edelmira for rate control. Patient is scheduled to have dial ysis tomorrow. Review of Systems: Patient cannot provide review of systems. She is recovering from stroke. She has severe expressive aphasia. Physical Examination: Lungs: Clear to auscultation bilaterally. Heart: S1, S2. Abdomen: Soft, benign. Extremities: Minimal edema. Impression And Plan: 1.Acute cerebrovascular accident per primary team. Patient was evaluated by Neurology. Continue re commendation from Neurology. 2.End-stage renal disease. Patient has advanced chronic kidney disease, accelerated by acute kidney injury. Patient likely has end-stage renal disease. Continue dialysis 3 times per week. Monitor e lectrolytes. 3.Status post PEG tube placement. Patient has severe dysphagia due to altered mental status with ma ssive strokes. Continue tube feeding. Monitor electrolytes. 4.Rapid ventricular response, atrial fibrillation. Continue beta edelmira. EB/MODL Voice ID: [id number] Report ID: [id number]
[2019-09-28 05:13] LABS: Absolute Lymphocytes (CBC) 0.6 K/uL (0.7-4.9); Basophils % 0.4 % (0-1.3); Hematocrit 32.4 % (36.0-45.0); Lymphocytes % 6.2 % (15.3-44.8); MPV 10.3 fL (7.6-11.3); RBC Red Blood Cell Count 3.58 M/uL (3.86-4.86)
[2019-09-28 05:34] LABS: Magnesium 1.9 mg/dL (1.8-2.4); Potassium 4.7 mmol/L (3.5-5.1)
[2019-09-28] MEDS: METOPROLOL TAR 50 MG TAB FT SCH ×3 (05:57→21:29)
[2019-09-28] MEDS: INSULIN -REGULAR HUMAN 50 UNIT/0.5 ML ML SQ SCH ×4 (06:00→18:00)
[2019-09-28] MEDS: SPIRIVA IH SCH ×2 (09:00→21:00)
[2019-09-28] MEDS: SYMBICORT IH SCH ×2 (09:00→21:00)
[2019-09-28] MEDS: ZINC SULFATE 220 MG CAP PO SCH (10:25)
[2019-09-28] MEDS: DOCUSATE NA 100 MG CAP PO SCH (10:25)
[2019-09-28] MEDS: SPIRONOLACTONE 25 MG TABLET PO SCH (10:25)
[2019-09-28] MEDS: SUCRALFATE 1 GM TABLET PO SCH ×3 (10:26→21:29)
[2019-09-28] MEDS: AMIODARONE HCL 200 MG TAB PO SCH (10:27)
[2019-09-28] MEDS: APIXABAN 2.5 MG TABLET PO SCH ×2 (10:27→21:29)
[2019-09-28] MEDS: ATORVASTATIN 40 MG TAB PO SCH (10:27)
[2019-09-28] MEDS: PANTOPRAZOLE 40 MG INJ IVP SCH ×2 (10:27→21:29)
[2019-09-28] MEDS: METOCLOPRAMIDE 5 MG TAB FT SCH ×4 (10:27→21:29)
[2019-09-28] MEDS: TICAGRELOR 90 MG TABLET PO SCH ×2 (10:27→21:29)
[2019-09-28] MEDS: FOLIC ACID 1 MG TABLET PO SCH (10:27)
--- NOTE | 2019-09-28 10:36 | P.PN ---
Subjective Date of Service: 09/28/19 Primary Care Provider: unknown Chief Complaint: Progressively weakness and hypokalemia Subjective: Demented, Other (on face mask 02 today) Physical Examination - Vital Signs Temperature: 0 F Blood Pressure: 129/60 Pulse: 64 Respirations: 18 Pulse Ox (%): 95 - Physical Exam General: Alert, Other (non verbal ) HEENT: Atraumatic, Normocephalic, PERRLA Neck: Supple, 2+ carotid pulse no bruit Respiratory: Diminished, Crackles/rales, Rhonchi/gurgles Cardiovascular: Normal pulses, Regular rate/rhythm, Normal S1 S2 Gastrointestinal: Normal bowel sounds, Soft and benign, Other (peg insitu ) Musculoskeletal: No clubbing, No swelling Integumentary: No rashes, No breakdown Neurological: Abnormal affect - Studies Laboratory Last Values WBC 9.1 K/uL (4.3-10.9) 09/28/19 05:00 RBC 3.58 M/uL (3.86-4.86) L 09/28/19 05:00 Hgb 10.5 g/dL (12.0-15.0) L 09/28/19 05:00 Hct 32.4 % (36.0-45.0) L 09/28/19 05:00 MCV 90.4 fL (80-100) 09/28/19 05:00 MCH 29.4 pg (27.0-35.0) 09/28/19 05:00 MCHC 32.5 g/dL (32.0-36.0) 09/28/19 05:00 RDW 19.1 % (12.1-15.2) H 09/28/19 05:00 Plt Count 194 K/uL (152-406) D 09/28/19 05:00 MPV 10.3 fL (7.6-11.3) 09/28/19 05:00 Plt Distribution Width Cancelled 09/16/19 05:00 Neutrophils % 88.0 % (41.7-73.7) H 09/28/19 05:00 Lymphocytes % 6.2 % (15.3-44.8) L 09/28/19 05:00 Monocytes % 5.1 % (3.3-12.3) 09/28/19 05:00 Eosinophils % 0.3 % (0-4.4) 09/28/19 05:00 Basophils % 0.4 % (0-1.3) 09/28/19 05:00 Megakaryocytes % Cancelled 09/14/19 16:45 Absolute Neutrophils 8.0 K/uL (1.8-8.0) 09/28/19 05:00 Segmented Neutrophils 89 % (40-80) H 09/27/19 05:06 Band Neutrophils 1 % (0-1) 09/16/19 04:50 Absolute Lymphocytes 0.6 K/uL (0.7-4.9) L 09/28/19 05:00 Lymphocytes 5 % (15-42) L 09/27/19 05:06 Monocytes 4 % (0-10) 09/27/19 05:06 Absolute Monocytes 0.5 K/uL (0.1-1.3) 09/28/19 05:00 Eosinophils 1 % (0-3) 09/27/19 05:06 Absolute Eosinophils 0.0 K/uL (0-0.5) 09/28/19 05:00 Absolute Basophils 0.0 K/uL (0-0.5) 09/28/19 05:00 Diff Path Review Cancelled 09/22/19 09:22 WBC/PLT Morphology Cancelled 09/14/19 16:45 Atypical Lymphocytes 1 09/27/19 05:06 Platelet Estimate Cancelled 09/14/19 16:45 Clumped Platelets Few 09/16/19 04:50 Giant Platelets Cancelled 09/14/19 16:45 Polychromasia 1+ 09/23/19 05:50 Poikilocytosis 1+ 09/14/19 16:45 Hypochromasia 1+ 09/23/19 05:50 Basophilic Stippling 1+ 09/23/19 05:50 Anisocytosis 1+ 09/23/19 05:50 Morphology Comment Not seen (NOT SEEN) 09/27/19 05:06 PT 11.6 SECONDS (9.5-12.5) 09/25/19 04:55 INR 0.98 09/25/19 04:55 APTT 39.4 SECONDS (24.3-36.9) H 09/25/19 04:55 Sodium 129 mmol/L (136-145) L 09/28/19 05:00 Potassium 4.7 mmol/L (3.5-5.1) 09/28/19 05:00 Chloride 94 mmol/L (98-107) L 09/28/19 05:00 Carbon Dioxide 24 mmol/L (21-32) 09/28/19 05:00 BUN 46 mg/dL (7-18) H 09/28/19 05:00 Creatinine 4.91 mg/dL (0.55-1.3) H D 09/28/19 05:00 Estimated GFR 9 mL/min (=/>90) L 09/28/19 05:00 Glucose 99 mg/dL (74-106) 09/28/19 05:00 POC Glucose 120 mg/dl (65-120) 09/28/19 07:00 Lactic Acid 1.0 mmol/L (0.4-2.0) 09/20/19 09:30 Calcium 7.9 mg/dL (8.5-10.1) L 09/28/19 05:00 Phosphorus 4.2 mg/dL (2.5-4.9) 09/22/19 09:40 Magnesium 1.9 mg/dL (1.8-2.4) 09/28/19 05:00 Total Bilirubin 0.3 mg/dL (0.2-1.0) 09/25/19 04:55 Direct Bilirubin 0.1 mg/dL (0-0.2) 09/13/19 14:47 AST 11 U/L (15-37) L 09/25/19 04:55 ALT 12 U/L (12-78) 09/25/19 04:55 Alkaline Phosphatase 57 U/L (45-117) 09/25/19 04:55 Creatine Kinase 33 U/L (26-192) 09/13/19 14:47 CK-MB (CK-2) 1.8 ng/mL (0.3-3.6) 09/13/19 14:47 Rapid Troponin I 0.13 ng/mL (0.0-0.045) H 09/13/19 14:47 Troponin I 0.30 ng/mL (0.0-0.045) H 09/14/19 08:25 Serum Total Protein 5.6 g/dL (6.4-8.2) L 09/25/19 04:55 Albumin 1.6 g/dL (3.4-5.0) L 09/25/19 04:55 Globulin 4.0 g/dL (2.3-3.5) H 09/25/19 04:55 Albumin/Globulin Ratio 0.4 (1.1-1.8) L 09/25/19 04:55 Prealbumin 12.6 mg/dL (20-40) L 09/22/19 09:40 Triglycerides 168 mg/dL (<150) H 09/22/19 09:40 Lipase 138 U/L (73-393) 09/13/19 14:47 Procalcitonin 0.97 ng/mL (<0.50) H 09/20/19 09:30 Urine Color Cancelled 09/23/19 20:10 Urine Appearance Cancelled 09/23/19 20:10 Urine pH Cancelled 09/23/19 20:10 Ur Specific [place] Cancelled 09/23/19 20:10 Urine Ketones Cancelled 09/23/19 20:10 Urine Blood Cancelled 09/23/19 20:10 Urine Nitrite Cancelled 09/23/19 20:10 Urine Bilirubin Cancelled 09/23/19 20:10 Urine Urobilinogen Cancelled 09/23/19 20:10 Ur Leukocyte Esterase Cancelled 09/23/19 20:10 Urine RBC Cancelled 09/23/19 20:10 Urine WBC Cancelled 09/23/19 20:10 Ur Squamous Epith Cells Cancelled 09/23/19 20:10 Ur Urothelial Cells Cancelled 09/13/19 14:27 Calcium Oxalate Crystal Cancelled 09/13/19 14:27 Uric Acid Crystals Cancelled 09/13/19 14:27 Triple Phos Crystals Cancelled 09/13/19 14:27 Other Crystals Cancelled 09/13/19 14:27 Amorphous Sediment Cancelled 09/13/19 14:27 Glitter Cells Cancelled 09/13/19 14:27 Urine Bacteria Cancelled 09/23/19 20:10 Hyaline Casts Cancelled 09/13/19 14:27 Fine Granular Casts Cancelled 09/13/19 14:27 Coarse Granular Casts Cancelled 09/13/19 14:27 Waxy Casts Cancelled 09/13/19 14:27 RBC Casts Cancelled 09/13/19 14:27 WBC Casts Cancelled 09/13/19 14:27 Urine Mucus Cancelled 09/23/19 20:10 Urine Other Cancelled 09/13/19 14:27 Urine Trichomonas Cancelled 09/13/19 14:27 Urine Yeast Cancelled 09/13/19 14:27 Ur Yeast w Hyphae Cancelled 09/13/19 14:27 Urine Yeast (Budding) Cancelled 09/13/19 14:27 Urine Sperm Cancelled 09/13/19 14:27 Urine Culture Reflexed Cancelled 09/23/19 20:10 Urine Total Volume Cancelled 09/13/19 14:27 Urine Glucose Cancelled 09/23/19 20:10 Urine Total Protein Cancelled 09/23/19 20:10 Hep Bs Antigen Nonreactive (Nonreactive) 09/17/19 16:30 Hep Bs Antibody Nonreactive (Nonreactive) 09/17/19 16:30 Hep Bs Antibody, Quant <5 mIU/mL (>=10) L 09/17/19 16:30 Hep B Core Total Ab Nonreactive (Nonreactive) 09/17/19 16:30 ABO/Rh O POSITIVE 09/26/19 10:04 Antibody Screen Negative 09/26/19 10:04 Crossmatch See Detail 09/26/19 10:04 Medications List Reviewed: Yes Assessment & Plan - Problems (Diagnosis) (1) Acute CVA (cerebrovascular accident) Current Visit: Yes Status: Acute (2) Arterial thromboembolism Current Visit: Yes Status: Acute (3) Colitis Current Visit: Yes Status: Acute (4) Hypokalemia Current Visit: Yes Status: Acute (5) Rapid atrial fibrillation Current Visit: Yes Status: Acute (6) Splenic infarct Current Visit: Yes Status: Acute (7) Aortic aneurysm Current Visit: Yes Status: Chronic (8) End stage chronic kidney disease Current Visit: Yes Status: Chronic Physician Review: Patient Assessed, Agree with Above Assessment and Plan Physician Review Additional Text: Impression: Atrial fibrillation with RVR Left MCA distribution CVA with right-sided gurwinder paresis and left lower extremity weakness complicated with aphasia Dysphagia status post PEG tube placement Hypertension End-stage renal disease on hemodialysis Anemia of chronic disease Aspiration Pneumonia Plan - will obtain CXR today to r/o aspiration pna given vomtiing 2 days ago and increasing 02 need now - will start emprical abx with flagyl and cefepime - wean 02 as tolerated - patietn spouse discussed with again , option of NH vs home hospice discussed , he wants to talk with the case mgt by himself and make a decision. he is agreeable that she is not a candidate for acute rehab now -follow HD Critical Care: Yes
--- NOTE | 2019-09-28 10:45 | RAD REPORT ---
EXAM DESCRIPTION: Helene Single View09/28/2019 10:37 am CLINICAL HISTORY: cough COMPARISON: September 20, 2019 FINDINGS: Mild bibasilar opacities. Small pleural effusions Upper lobes are clear Heart is mildly enlarged. Central venous and PICC lines remain in place IMPRESSION: Mild bibasilar opacities with small pleural effusions. This can be seen with aspiration pneumonia or mild CHF
[2019-09-28] MEDS ORDERED: CEFEPIME 1 GM/VIAL IV SCH (11:07)
[2019-09-28] MEDS: CEFEPIME/SWI 1gm 10 ML IVP SCH (13:44)
[2019-09-28] MEDS ORDERED: EPOETIN ALFA-EPBX 4,000 UNIT/ML VIAL ONE (17:02)
[2019-09-28] MEDS: METRONIDAZOLE 250mg IVPB 250 MG/50 ML BAG IV SCH (18:49)
[2019-09-28] MEDS: NEPRO 1,000 ML BOT RTH SCH (18:50)
--- NOTE | 2019-09-28 21:42 | PN ---
Date of Progress Note: 09/28/2019 Chief Complaint: Acute kidney injury on advanced chronic kidney disease. History Of Present Illness: Patient remains dialysis dependent. Patient has multiple medical proble ms including coronary artery disease, cardiorenal syndrome with ATN, accelerated chronic kidney pain due to ATN and cardiorenal syndrome. Patient has history of atrial fibrillation. She remains on ami odarone and beta-edelmira for rate control. Patient is undergoing dialysis today to obtain negative f luid balance and control azotemia. Electrolytes are stable. Patient underwent PEG tube placement. Review of Systems: Patient cannot provide review of systems. She is mute. She has expressive aphasia. Physical Examination: Lungs: Clear to auscultation bilaterally. Heart: S1, S2. Abdomen: Soft, benign. Extremities: Slight edema. Impression And Plan: 1.Acute cerebrovascular accident. Neurology consultation was requested. 2.End-stage renal disease. Patient will continue dialysis. 3.Status post PEG tube placement. Patient has severe dysphagia and altered mental status. Monitor electrolytes when patient is on PEG tube feeding. 4.Rapid ventricular response. Atrial fibrillation. Continue beta-edelmira. Monitor blood pressure. EB/MODL Voice ID: [id number] Report ID: [id number]
[2019-09-29] MEDS: METRONIDAZOLE 250mg IVPB 250 MG/50 ML BAG IV SCH ×3 (00:25→16:44)
[2019-09-29] MEDS: INSULIN -REGULAR HUMAN 50 UNIT/0.5 ML ML SQ SCH ×5 (05:32→23:52)
[2019-09-29 05:47] LABS: Hematocrit 30.4 % (36.0-45.0); RBC Red Blood Cell Count 3.33 M/uL (3.86-4.86)
[2019-09-29 05:48] LABS: Absolute Lymphocytes (CBC) 0.4 K/uL (0.7-4.9); Lymphocytes % 4.9 % (15.3-44.8); MPV 10.2 fL (7.6-11.3)
[2019-09-29 05:56] LABS: Magnesium 1.8 mg/dL (1.8-2.4); Potassium 3.7 mmol/L (3.5-5.1)
[2019-09-29] MEDS: PANTOPRAZOLE 40 MG INJ IVP SCH ×2 (08:47→22:07)
[2019-09-29] MEDS: CEFEPIME/SWI 1gm 10 ML IVP SCH (08:48)
[2019-09-29] MEDS: FOLIC ACID 1 MG TABLET PO SCH (08:48)
[2019-09-29] MEDS: METOCLOPRAMIDE 5 MG TAB FT SCH ×4 (08:48→22:08)
[2019-09-29] MEDS: ZINC SULFATE 220 MG CAP PO SCH (08:49)
[2019-09-29] MEDS: SUCRALFATE 1 GM TABLET PO SCH ×3 (08:49→22:08)
[2019-09-29] MEDS: APIXABAN 2.5 MG TABLET PO SCH ×2 (08:49→22:08)
[2019-09-29] MEDS: AMIODARONE HCL 200 MG TAB PO SCH (08:49)
[2019-09-29] MEDS: SPIRONOLACTONE 25 MG TABLET PO SCH (08:49)
[2019-09-29] MEDS: TICAGRELOR 90 MG TABLET PO SCH ×2 (08:50→22:07)
[2019-09-29] MEDS: ATORVASTATIN 40 MG TAB PO SCH (08:50)
[2019-09-29] MEDS: METOPROLOL TAR 50 MG TAB FT SCH ×2 (08:50→22:07)
[2019-09-29 08:52] LABS: Phosphorus 3.1 mg/dL (2.5-4.9); Prealbumin 9.4 mg/dL (20-40)
[2019-09-29] MEDS ORDERED: CEFEPIME/SWI 1gm 10 ML IVP SCH (09:00)
[2019-09-29] MEDS: SYMBICORT IH SCH ×2 (09:00→21:00)
[2019-09-29] MEDS: SPIRIVA IH SCH ×2 (09:00→21:00)
[2019-09-29] MEDS: DOCUSATE NA 100 MG CAP PO SCH (10:51)
[2019-09-30] MEDS: METRONIDAZOLE 250mg IVPB 250 MG/50 ML BAG IV SCH ×3 (00:34→17:40)
[2019-09-30] MEDS: NEPRO 1,000 ML BOT RTH SCH (03:30)
[2019-09-30] MEDS: INSULIN -REGULAR HUMAN 50 UNIT/0.5 ML ML SQ SCH ×3 (06:00→18:00)
[2019-09-30] MEDS: CEFEPIME/SWI 1gm 10 ML IVP SCH (09:15)
[2019-09-30] MEDS: PANTOPRAZOLE 40 MG INJ IVP SCH ×2 (09:15→21:27)
[2019-09-30] MEDS: SUCRALFATE 1 GM TABLET PO SCH ×3 (09:16→21:28)
[2019-09-30] MEDS: APIXABAN 2.5 MG TABLET PO SCH ×2 (09:16→21:28)
[2019-09-30] MEDS: TICAGRELOR 90 MG TABLET PO SCH ×2 (09:16→21:28)
[2019-09-30] MEDS: METOCLOPRAMIDE 5 MG TAB FT SCH ×4 (09:16→21:28)
[2019-09-30] MEDS: ZINC SULFATE 220 MG CAP PO SCH (09:16)
[2019-09-30] MEDS: DOCUSATE NA 100 MG CAP PO SCH (09:16)
[2019-09-30] MEDS: FOLIC ACID 1 MG TABLET PO SCH (09:17)
[2019-09-30] MEDS: ATORVASTATIN 40 MG TAB PO SCH (09:17)
[2019-09-30] MEDS: SPIRONOLACTONE 25 MG TABLET PO SCH (09:20)
[2019-09-30] MEDS: AMIODARONE HCL 200 MG TAB PO SCH (09:20)
[2019-09-30] MEDS: METOPROLOL TAR 50 MG TAB FT SCH ×2 (09:20→21:28)
[2019-09-30] MEDS: SYMBICORT IH SCH ×2 (09:21→21:00)
[2019-09-30] MEDS: SPIRIVA IH SCH ×3 (09:21→21:00)
--- NOTE | 2019-09-30 10:27 | P.PN ---
Date of Service: 09/29/19 Subjective Date of Service: 09/28/19 Primary Care Provider: unknown Chief Complaint: Progressively weakness and hypokalemia Subjective: Demented, Other (on face mask 02 today) Physical Examination - Vital Signs Temperature: 0 F Blood Pressure: 129/60 Pulse: 64 Respirations: 18 Pulse Ox (%): 95 - Physical Exam General: Alert, Other (non verbal ) HEENT: Atraumatic, Normocephalic, PERRLA Neck: Supple, 2+ carotid pulse no bruit Respiratory: Diminished, Crackles/rales, Rhonchi/gurgles Cardiovascular: Normal pulses, Regular rate/rhythm, Normal S1 S2 Gastrointestinal: Normal bowel sounds, Soft and benign, Other (peg insitu ) Musculoskeletal: No clubbing, No swelling Integumentary: No rashes, No breakdown Neurological: Abnormal affect - Studies Laboratory Last Values WBC 9.1 K/uL (4.3-10.9) 09/28/19 05:00 RBC 3.58 M/uL (3.86-4.86) L 09/28/19 05:00 Hgb 10.5 g/dL (12.0-15.0) L 09/28/19 05:00 Hct 32.4 % (36.0-45.0) L 09/28/19 05:00 MCV 90.4 fL (80-100) 09/28/19 05:00 MCH 29.4 pg (27.0-35.0) 09/28/19 05:00 MCHC 32.5 g/dL (32.0-36.0) 09/28/19 05:00 RDW 19.1 % (12.1-15.2) H 09/28/19 05:00 Plt Count 194 K/uL (152-406) D 09/28/19 05:00 MPV 10.3 fL (7.6-11.3) 09/28/19 05:00 Plt Distribution Width Cancelled 09/16/19 05:00 Neutrophils % 88.0 % (41.7-73.7) H 09/28/19 05:00 Lymphocytes % 6.2 % (15.3-44.8) L 09/28/19 05:00 Monocytes % 5.1 % (3.3-12.3) 09/28/19 05:00 Eosinophils % 0.3 % (0-4.4) 09/28/19 05:00 Basophils % 0.4 % (0-1.3) 09/28/19 05:00 Megakaryocytes % Cancelled 09/14/19 16:45 Absolute Neutrophils 8.0 K/uL (1.8-8.0) 09/28/19 05:00 Segmented Neutrophils 89 % (40-80) H 09/27/19 05:06 Band Neutrophils 1 % (0-1) 09/16/19 04:50 Absolute Lymphocytes 0.6 K/uL (0.7-4.9) L 09/28/19 05:00 Lymphocytes 5 % (15-42) L 09/27/19 05:06 Monocytes 4 % (0-10) 09/27/19 05:06 Absolute Monocytes 0.5 K/uL (0.1-1.3) 09/28/19 05:00 Eosinophils 1 % (0-3) 09/27/19 05:06 Absolute Eosinophils 0.0 K/uL (0-0.5) 09/28/19 05:00 Absolute Basophils 0.0 K/uL (0-0.5) 09/28/19 05:00 Diff Path Review Cancelled 09/22/19 09:22 WBC/PLT Morphology Cancelled 09/14/19 16:45 Atypical Lymphocytes 1 09/27/19 05:06 Platelet Estimate Cancelled 09/14/19 16:45 Clumped Platelets Few 09/16/19 04:50 Giant Platelets Cancelled 09/14/19 16:45 Polychromasia 1+ 09/23/19 05:50 Poikilocytosis 1+ 09/14/19 16:45 Hypochromasia 1+ 09/23/19 05:50 Basophilic Stippling 1+ 09/23/19 05:50 Anisocytosis 1+ 09/23/19 05:50 Morphology Comment Not seen (NOT SEEN) 09/27/19 05:06 PT 11.6 SECONDS (9.5-12.5) 09/25/19 04:55 INR 0.98 09/25/19 04:55 APTT 39.4 SECONDS (24.3-36.9) H 09/25/19 04:55 Sodium 129 mmol/L (136-145) L 09/28/19 05:00 Potassium 4.7 mmol/L (3.5-5.1) 09/28/19 05:00 Chloride 94 mmol/L (98-107) L 09/28/19 05:00 Carbon Dioxide 24 mmol/L (21-32) 09/28/19 05:00 BUN 46 mg/dL (7-18) H 09/28/19 05:00 Creatinine 4.91 mg/dL (0.55-1.3) H D 09/28/19 05:00 Estimated GFR 9 mL/min (=/>90) L 09/28/19 05:00 Glucose 99 mg/dL (74-106) 09/28/19 05:00 POC Glucose 120 mg/dl (65-120) 09/28/19 07:00 Lactic Acid 1.0 mmol/L (0.4-2.0) 09/20/19 09:30 Calcium 7.9 mg/dL (8.5-10.1) L 09/28/19 05:00 Phosphorus 4.2 mg/dL (2.5-4.9) 09/22/19 09:40 Magnesium 1.9 mg/dL (1.8-2.4) 09/28/19 05:00 Total Bilirubin 0.3 mg/dL (0.2-1.0) 09/25/19 04:55 Direct Bilirubin 0.1 mg/dL (0-0.2) 09/13/19 14:47 AST 11 U/L (15-37) L 09/25/19 04:55 ALT 12 U/L (12-78) 09/25/19 04:55 Alkaline Phosphatase 57 U/L (45-117) 09/25/19 04:55 Creatine Kinase 33 U/L (26-192) 09/13/19 14:47 CK-MB (CK-2) 1.8 ng/mL (0.3-3.6) 09/13/19 14:47 Rapid Troponin I 0.13 ng/mL (0.0-0.045) H 09/13/19 14:47 Troponin I 0.30 ng/mL (0.0-0.045) H 09/14/19 08:25 Serum Total Protein 5.6 g/dL (6.4-8.2) L 09/25/19 04:55 Albumin 1.6 g/dL (3.4-5.0) L 09/25/19 04:55 Globulin 4.0 g/dL (2.3-3.5) H 09/25/19 04:55 Albumin/Globulin Ratio 0.4 (1.1-1.8) L 09/25/19 04:55 Prealbumin 12.6 mg/dL (20-40) L 09/22/19 09:40 Triglycerides 168 mg/dL (<150) H 09/22/19 09:40 Lipase 138 U/L (73-393) 09/13/19 14:47 Procalcitonin 0.97 ng/mL (<0.50) H 09/20/19 09:30 Urine Color Cancelled 09/23/19 20:10 Urine Appearance Cancelled 09/23/19 20:10 Urine pH Cancelled 09/23/19 20:10 Ur Specific [place] Cancelled 09/23/19 20:10 Urine Ketones Cancelled 09/23/19 20:10 Urine Blood Cancelled 09/23/19 20:10 Urine Nitrite Cancelled 09/23/19 20:10 Urine Bilirubin Cancelled 09/23/19 20:10 Urine Urobilinogen Cancelled 09/23/19 20:10 Ur Leukocyte Esterase Cancelled 09/23/19 20:10 Urine RBC Cancelled 09/23/19 20:10 Urine WBC Cancelled 09/23/19 20:10 Ur Squamous Epith Cells Cancelled 09/23/19 20:10 Ur Urothelial Cells Cancelled 09/13/19 14:27 Calcium Oxalate Crystal Cancelled 09/13/19 14:27 Uric Acid Crystals Cancelled 09/13/19 14:27 Triple Phos Crystals Cancelled 09/13/19 14:27 Other Crystals Cancelled 09/13/19 14:27 Amorphous Sediment Cancelled 09/13/19 14:27 Glitter Cells Cancelled 09/13/19 14:27 Urine Bacteria Cancelled 09/23/19 20:10 Hyaline Casts Cancelled 09/13/19 14:27 Fine Granular Casts Cancelled 09/13/19 14:27 Coarse Granular Casts Cancelled 09/13/19 14:27 Waxy Casts Cancelled 09/13/19 14:27 RBC Casts Cancelled 09/13/19 14:27 WBC Casts Cancelled 09/13/19 14:27 Urine Mucus Cancelled 09/23/19 20:10 Urine Other Cancelled 09/13/19 14:27 Urine Trichomonas Cancelled 09/13/19 14:27 Urine Yeast Cancelled 09/13/19 14:27 Ur Yeast w Hyphae Cancelled 09/13/19 14:27 Urine Yeast (Budding) Cancelled 09/13/19 14:27 Urine Sperm Cancelled 09/13/19 14:27 Urine Culture Reflexed Cancelled 09/23/19 20:10 Urine Total Volume Cancelled 09/13/19 14:27 Urine Glucose Cancelled 09/23/19 20:10 Urine Total Protein Cancelled 09/23/19 20:10 Hep Bs Antigen Nonreactive (Nonreactive) 09/17/19 16:30 Hep Bs Antibody Nonreactive (Nonreactive) 09/17/19 16:30 Hep Bs Antibody, Quant <5 mIU/mL (>=10) L 09/17/19 16:30 Hep B Core Total Ab Nonreactive (Nonreactive) 09/17/19 16:30 ABO/Rh O POSITIVE 09/26/19 10:04 Antibody Screen Negative 09/26/19 10:04 Crossmatch See Detail 09/26/19 10:04 Medications List Reviewed: Yes Assessment & Plan - Problems (Diagnosis) (1) Acute CVA (cerebrovascular accident) Current Visit: Yes Status: Acute (2) Arterial thromboembolism Current Visit: Yes Status: Acute (3) Colitis Current Visit: Yes Status: Acute (4) Hypokalemia Current Visit: Yes Status: Acute (5) Rapid atrial fibrillation Current Visit: Yes Status: Acute (6) Splenic infarct Current Visit: Yes Status: Acute (7) Aortic aneurysm Current Visit: Yes Status: Chronic (8) End stage chronic kidney disease Current Visit: Yes Status: Chronic Physician Review: Patient Assessed, Agree with Above Assessment and Plan Physician Review Additional Text: Plan - check CXR; - continue emprical abx with flagyl and cefepime - wean O2 as tolerated - patient spouse re: hospice discussed , he will possibly discharge home with [facility] - follow HD Critical Care: Yes
--- NOTE | 2019-09-30 14:44 | PN ---
Date of Progress Note: 09/29/2019 Chief Complaint: Acute on chronic kidney injury. History Of Present Illness: Patient is dialysis dependent. She has history of ATN, cardiorenal synd wayne, accelerated chronic kidney due to ATN. Patient has history of atrial fibrillation. She remain s on amiodarone and beta-edelmira. During this admission, she was diagnosed with extensive stroke. S he is bedbound and she has expressive aphasia. She does not follow commands. Review of Systems: Denies fever and chills. Physical Examination: Lungs: Clear to auscultation bilaterally. Heart: S1, S2. Abdomen: Soft, benign. Extremities: Slight edema. Impression And Plan: 1.Acute cerebrovascular accident. Neurology consultation is requested. Patient was evaluated by [facility]. 2.End-stage renal disease, likely patient has end-stage renal disease due to accelerated chronic kid rupal disease with acute tubular necrosis and cardiorenal syndrome. Patient remains dialysis dependent . Continue dialysis 3 times per week. 3.Status post percutaneous endoscopic gastrostomy. Patient has severe dysphagia, altered mental sta tus. She will continue PEG feedings. 4.Rapid ventricular response, atrial fibrillation. Continue beta-edelmira. Monitor blood pressure. EB/MODL Voice ID: [id number] Report ID: [id number]
--- NOTE | 2019-09-30 15:01 | P.PN ---
Subjective Date of Service: 09/30/19 Primary Care Provider: unknown Chief Complaint: Progressively weakness and hypokalemia Subjective: Worsening Pt admitted with weakness and HD catheter malfunction, comaplaining of intermittent abd pain for last 3wks K 2.8 on admission Pt developed rt sided weakness , MRI with massive no hemorrhagic infract today lethargic family to decide about goal of care poor oral intake next HD tomorrow Physical Examination - Vital Signs Temperature: 97.8 F Blood Pressure: 112/56 Pulse: 70 Respirations: 18 Pulse Ox (%): 97 - Physical Exam General: Other (lethargic ) HEENT: Atraumatic, Normocephalic Neck: Supple, Without JVD or thyroid abnormality Respiratory: Clear to auscultation bilaterally, Normal air movement Cardiovascular: No edema, Normal pulses, Abnormal S3, No gallops, No rubs, No murmurs, Irregular heart rate/rhythm Gastrointestinal: Normal bowel sounds, Soft and benign, No ascites, No tenderness Musculoskeletal: No clubbing, No swelling Integumentary: No rashes, No erythema - Studies Medications List Reviewed: Yes Assessment And Plan - Plan ESRD on Home HD renal dose meds next HD tomorrow CVA with Rt sided weakness neurology on board Extensive nonhemorrhagic acute CVA is seen greatest in the left MCA distribution but involving multiple vascular territories bilaterally neurology F/U on heparin and bridge with Coumadin Anemia Cont Epogen HTN on metoprolol and Aldactone if BP cont to be elevated after HD will add amlodipine controlled Afib rate controlled now Aortic thrombosis with splenic infraction Cont anticoagulation Prognosis guarded Physician Review: Patient Assessed, Agree with Above Assessment and Plan
[2019-10-01] MEDS: METRONIDAZOLE 250mg IVPB 250 MG/50 ML BAG IV SCH ×2 (00:26→09:27)
[2019-10-01] MEDS: INSULIN -REGULAR HUMAN 50 UNIT/0.5 ML ML SQ SCH ×3 (06:00→11:34)
[2019-10-01] MEDS: NEPRO 1,000 ML BOT RTH SCH (06:39)
[2019-10-01] MEDS: DOCUSATE NA 100 MG CAP PO SCH (09:00)
[2019-10-01] MEDS: SPIRIVA IH SCH (09:00)
[2019-10-01] MEDS: SYMBICORT IH SCH (09:00)
[2019-10-01] MEDS: TICAGRELOR 90 MG TABLET PO SCH (09:17)
[2019-10-01] MEDS: METOCLOPRAMIDE 5 MG TAB FT SCH ×2 (09:18→11:37)
[2019-10-01] MEDS: APIXABAN 2.5 MG TABLET PO SCH (09:18)
[2019-10-01] MEDS: ZINC SULFATE 220 MG CAP PO SCH (09:18)
[2019-10-01] MEDS: SPIRONOLACTONE 25 MG TABLET PO SCH (09:18)
[2019-10-01] MEDS: SUCRALFATE 1 GM TABLET PO SCH (09:18)
[2019-10-01] MEDS: PANTOPRAZOLE 40 MG INJ IVP SCH (09:18)
[2019-10-01] MEDS: ATORVASTATIN 40 MG TAB PO SCH (09:18)
[2019-10-01] MEDS: AMIODARONE HCL 200 MG TAB PO SCH (09:18)
[2019-10-01] MEDS: FOLIC ACID 1 MG TABLET PO SCH (09:19)
[2019-10-01] MEDS: CEFEPIME/SWI 1gm 10 ML IVP SCH (09:20)
[2019-10-01] MEDS: METOPROLOL TAR 50 MG TAB FT SCH (09:25)
[2019-10-01 11:01] VITALS: O2SAT 92
[2019-10-01 12:11] VITALS: BP 145/66; TEMP 97.3
[2019-10-01] MEDS ORDERED: SCOPOLAMINE HYDROBROMIDE PATCH TD SCH (13:00)
[2019-10-01] MEDS ORDERED: LORazepam 2 MG/ML VIAL IV PRN (13:04)
[2019-10-01] MEDS ORDERED: MORPHINE 2 MG/ML SYR IV PRN (13:04)
[2019-10-01] MEDS ORDERED: ONDANSETRON 4 MG/2 ML VIAL IV PRN (13:04)
--- NOTE | 2019-10-01 13:11 | P.DS ---
Admission Date: 09/13/19 Discharge Date: 10/02/19 Primary Care Provider: unknown Disposition: HOSPICE-MEDICAL FACILITY Discharge Condition: SERIOUS Reason for Admission: Progressively weakness and hypokalemia Consultations: Neurology- Dr. Quevedo Cardiology-Dr. Bates Surgery-Dr. Mcgrath Nephrology-Dr. Mcgrath Procedures: CT Ab: FINDINGS: 3.4 centimeter abdominal aortic aneurysm AP diameter without significant change. Abdominal aortic contains small to moderate amount of thrombus. Ulcerating plaque is present. Left renal and common iliac stents in place Low-density measuring several centimeters is present within the spleen extending peripherally probably infarction. The gallbladder is mildly distended. The liver,, right adrenal and kidneys appear unremarkable. Small left adrenal adenoma is suspected. The wall of the cecum appears mildly thickened IMPRESSION: 3.4 centimeter abdominal aortic aneurysm without significant change. Ulcerating plaque is noted. Small to moderate splenic infarct Mild gallbladder distention Wall of the cecum appears mildly thickened which may indicate inflammation CT Brain: FINDINGS: No intracranial hemorrhage, mass, or cerebral edema. A small focus of decreased attenuation is present in the deep periventricular white matter left frontal lobe. Small area of decreased attenuation is also present in the posterior lateral aspect of the left occipital lobe. Patient has an underlying mild atrophy and mild scattered chronic ischemic change in the cerebral white matter. No extra-axial fluid collections. Fitzpatrick matter-white matter differentiation is preserved. Ventricles are in proportion to volume loss. Arterial tree calcifications are present. Visualized portions of the mastoid air cells, paranasal sinuses, and orbits are unremarkable. IMPRESSION: No intracranial hemorrhage. Areas of diminished attenuation in the deep periventricular white matter left frontal lobe and in the cortex of the posterior lateral left occipital lobe. Both areas are concerning for nonhemorrhagic CVA. MRI Brain: FINDINGS: Multiple areas of acute CVA is identified.The largest distribution of the acute infarction changes are in the left MCA distribution along the left frontal and parietal lobes. There is additional areas of acute CVA noted in the left frontal, left occipital and right occipital lobes. No hemorrhage is seen.No hydrocephalus or midline shift. The CVA distribution pattern is unusual and raises the possibility of embolic phenomena. Midline structures are normally formed. Mastoid air cells and paranasal sinuses are clear. IMPRESSION: Extensive nonhemorrhagic acute CVA is seen greatest in the left MCA distribution but involving multiple vascular territories bilaterally. Procedure: EGD for PEG tube placement Medical Problem List: Atrial fibrillation with RVR Extensive nonhemorrhagic acute CVA greatest in the left MCA distribution but involving multiple vascular territories bilateral likely embolic Upper abdominal pain secondary to colitis Dysphagia status post PEG tube placement Hypertension End-stage renal disease on hemodialysis with hyperkalemia Anemia of chronic disease End-stage COPD, steroid and oxygen dependent 3.4 cm abdominal aortic aneurysm Small moderate splenic infarct GERD Brief History of Present Illness: 69-year-old female with multiple medical problems including end-stage renal disease on hemodialysis, chronic atrial fibrillation on chronic anti coagulation therapy, CAD with prior stent, diabetes mellitus type 2. Patient presented with progressive weakness over the past month. Upon admission she was not able to go to outpatient diaylsis. She has some upper quadrant abdominal pain. CT showed possible colitis. She was hyperkalemic. She was admitted for further evaluation and treatment. Hospital Course: Patient with multiple medical problems including end-stage renal disease on hemodialysis, anemia of chronic disease, GERD, atrial fibrillation on chronic anti coagulation therapy, end-stage COPD steroid and oxygen-dependent, and hypertension. Patient presented with weakness and abdominal pain. Patient found to have colitis and admitted for further evaluation and treatment. CT scan also revealed small to moderate splenic infarct. 3.4 cm abdominal aortic aneurysm noted. Surgery, Nephrology, and Cardiology were consulted. During the course of her stay multiple issues were addressed. There was some concern that the patient may have pulled the dialysis catheter. Surgery was consulted to replace catheter. Apparently was working properly. During this time patient was placed on heparin. Then the patient had AFib with RVR. Cardiology planned for cardioversion but her AFib improved. Once controlled patient was put back on Eliquis. Patient remained in AFib. But better rate controlled. After that time patient developed acute right-sided weakness. Patient was evaluated and found to have extensive nonhemorrhagic acute CVA with greatest in the left MCA distribution but involving multiple vascular territories bilateral. Neurology was consulted at that point. Aspirin was added to Eliquis. After that time patient's condition continued to deteriorate. Patient had dysphagia. This required speech evaluation which showed high risk for aspiration. Patient was evaluated for PEG tube placement by surgery. Family wanted this to be done. Peg tube placed. During the course she remained on medication and received dialysis. Patient continued to deteriorate. Patient had poor prognosis. Advanced directives readdressed in detail with and family members. Hospice was also offered. After multiple discussions and family understood that her condition would likely not improve to her prior status. At that point decided to make her DNR. After further discussion and family decided on hospice for the patient. Hospice evaluated patient. Patient evaluated for inpatient hospice. Patient approved. Patient was transferred to inpatient hospice with comfort measures. Vital Signs/Physical Exam: Temp Pulse Resp BP Pulse Ox 97.3 F 78 20 145/66 H 90 L 10/01/19 12:00 10/01/19 12:00 10/01/19 12:00 10/01/19 12:00 10/01/19 12:00 General: Other (Appears aphasic) Respiratory: Diminished Cardiovascular: Irregular heart rate/rhythm Neurological: Other (Right-sided weakness with poor control) Laboratory Data at Discharge: WBC 9.0 K/uL (4.3-10.9) 09/29/19 05:27 Hgb 9.9 g/dL (12.0-15.0) L 09/29/19 05:27 Hct 30.4 % (36.0-45.0) L 09/29/19 05:27 Plt Count 187 K/uL (152-406) 09/29/19 05:27 PT 11.6 SECONDS (9.5-12.5) 09/25/19 04:55 INR 0.98 09/25/19 04:55 APTT 39.4 SECONDS (24.3-36.9) H 09/25/19 04:55 Sodium 135 mmol/L (136-145) L 09/29/19 05:27 Potassium 3.7 mmol/L (3.5-5.1) 09/29/19 05:27 BUN 27 mg/dL (7-18) H 09/29/19 05:27 Creatinine 3.31 mg/dL (0.55-1.3) H D 09/29/19 05:27 Glucose 208 mg/dL (74-106) H 09/29/19 05:27 Phosphorus 3.1 mg/dL (2.5-4.9) 09/29/19 05:27 Magnesium 1.8 mg/dL (1.8-2.4) 09/29/19 05:27 Total Bilirubin 0.3 mg/dL (0.2-1.0) 09/25/19 04:55 AST 11 U/L (15-37) L 09/25/19 04:55 ALT 12 U/L (12-78) 09/25/19 04:55 Alkaline Phosphatase 57 U/L (45-117) 09/25/19 04:55 Troponin I 0.30 ng/mL (0.0-0.045) H 09/14/19 08:25 Triglycerides 252 mg/dL (<150) H 09/29/19 05:27 Lipase 138 U/L (73-393) 09/13/19 14:47 Home Medications: Amiodarone HCl [Cordarone*] 200 mg PO DAILY 07/26/19 Apixaban [Eliquis *] 2.5 mg PO BID 07/26/19 Atorvastatin Calcium [Lipitor] 40 mg PO DAILY 07/26/19 Budesonide/Formoterol Fumarate [Symbicort 160-4.5 Mcg Inhaler] 2 puff IH BID Famotidine [Pepcid*] 20 mg PO BEDTIME 07/26/19 Sitagliptin Phosphate [Januvia] 25 mg PO DAILY 07/26/19 Docusate [Colace Cap*] 100 mg PO DAILY #30 cap 08/01/19 Folic Acid 1 mg PO DAILY #90 tablet 08/01/19 Hydralazine [Apresoline*] 25 mg PO BID #60 tab 08/01/19 Ticagrelor [Brilinta*] 90 mg PO BID #60 tablet 08/01/19 carvediloL [Coreg*] 25 mg PO BID 6AM 6PM #60 tab 08/01/19 Folic Acid 1 mg PO DAILY 09/14/19 Furosemide [Lasix*] 40 mg PO DAILY 09/14/19 Isosorbide Dinitrate 10 mg PO TID 09/14/19 Metoclopramide [Reglan*] 5 mg PO TID* 09/14/19 Sitagliptin Phosphate [Januvia] 25 mg PO DAILY 09/14/19 Sucralfate [Carafate*] 1 gm PO TID 09/14/19 Tiotropium [Spiriva Handihaler*] 2 inh IH BID 09/14/19 Zinc Sulfate [Zinc Sulfate*] 220 mg PO DAILY 09/14/19 Patient Discharge Instructions: Patient transferred to inpatient hospice for comfort measures. Patient DNR. Diet: Tube feeds stopped Activity: Bedrest Time spent managing pt's care (in minutes): 55
--- NOTE | 2019-10-01 20:18 | P.PN ---
Subjective Date of Service: 10/01/19 Primary Care Provider: unknown Chief Complaint: Progressively weakness and hypokalemia Subjective: No new changes Pt admitted with weakness and HD catheter malfunction, comaplaining of intermittent abd pain for last 3wks K 2.8 on admission Pt developed rt sided weakness , MRI with massive no hemorrhagic infract today Cont to be lethargic lethargic family agreed for hospice and hold HD will do dialysis today Physical Examination - Vital Signs Temperature: 97.3 F Blood Pressure: 145/66 Pulse: 78 Respirations: 20 Pulse Ox (%): 90 - Physical Exam General: Other (open . eyes , vant follow commands ) HEENT: Atraumatic, Normocephalic Neck: Supple, Without JVD or thyroid abnormality Respiratory: Clear to auscultation bilaterally, Normal air movement Cardiovascular: No edema, Normal pulses, Normal S1 S2 Gastrointestinal: Normal bowel sounds, Soft and benign, Other (PEG tube ) Musculoskeletal: No clubbing, No swelling Integumentary: No rashes - Studies Medications List Reviewed: Yes Assessment And Plan - Plan ESRD on Home HD renal dose meds hD today , family agreed for hospice care, and refuding further treatment including dialysis CVA with Rt sided weakness neurology on board Extensive nonhemorrhagic acute CVA is seen greatest in the left MCA distribution but involving multiple vascular territories bilaterally neurology F/U S/P PEG tube Anemia Cont Epogen HTN on metoprolol and Aldactone controlled Afib rate controlled now Aortic thrombosis with splenic infraction Cont anticoagulation poor Prognosis Physician Review: Patient Assessed, Agree with Above Assessment and Plan
== END 2019-10-01 15:49 | disposition hospice, inpatient (51) | DRG 308 ==
LOC: ER 13:52 → ERHOLD 17:22 → 4TH 18:20 → 3RD-ICU 09-15 16:48 → 4TH 09-17 13:10 → 2ND 09-20 15:48
PROVIDERS: ADMIT Internal Medicine; ATTEND Family Medicine
PROC: 5A1D70Z Performance of Urinary Filtration, Intermittent, Less than 6 Hours Per Day (ICD-10-PCS; 2019-09-14)
PROC: 02HV33Z Insertion of Infusion Device into Superior Vena Cava, Percutaneous Approach (ICD-10-PCS; 2019-09-15)
PROC: 5A1D70Z Performance of Urinary Filtration, Intermittent, Less than 6 Hours Per Day (ICD-10-PCS; 2019-09-17)
PROC: 5A1D70Z Performance of Urinary Filtration, Intermittent, Less than 6 Hours Per Day (ICD-10-PCS; 2019-09-20)
PROC: 5A1D70Z Performance of Urinary Filtration, Intermittent, Less than 6 Hours Per Day (ICD-10-PCS; 2019-09-21)
PROC: 5A1D70Z Performance of Urinary Filtration, Intermittent, Less than 6 Hours Per Day (ICD-10-PCS; 2019-09-23)
PROC: 0DH63UZ Insertion of Feeding Device into Stomach, Percutaneous Approach (ICD-10-PCS; principal; 2019-09-24 08:00)
PROC: 5A1D70Z Performance of Urinary Filtration, Intermittent, Less than 6 Hours Per Day (ICD-10-PCS; 2019-09-25)
PROC: 5A1D70Z Performance of Urinary Filtration, Intermittent, Less than 6 Hours Per Day (ICD-10-PCS; 2019-09-28)
PROC: 5A1D70Z Performance of Urinary Filtration, Intermittent, Less than 6 Hours Per Day (ICD-10-PCS; 2019-10-01)
DX: I48.20 Chronic atrial fibrillation, unspecified (principal); N18.6 End stage renal disease; I63.9 Cerebral infarction, unspecified; I12.0 Hypertensive chronic kidney disease with stage 5 chronic kidney disease or end stage renal disease; E46 Unspecified protein-calorie malnutrition; N17.9 Acute kidney failure, unspecified; I74.10 Embolism and thrombosis of unspecified parts of aorta; N25.81 Secondary hyperparathyroidism of renal origin; I25.10 Atherosclerotic heart disease of native coronary artery without angina pectoris; E11.9 Type 2 diabetes mellitus without complications; E78.5 Hyperlipidemia, unspecified; J44.9 Chronic obstructive pulmonary disease, unspecified; E87.6 Hypokalemia; K52.9 Noninfective gastroenteritis and colitis, unspecified; R13.10 Dysphagia, unspecified; D64.9 Anemia, unspecified; D73.5 Infarction of spleen; I48.0 Paroxysmal atrial fibrillation; N25.0 Renal osteodystrophy; R29.721 NIHSS score 21; D63.1 Anemia in chronic kidney disease; Z99.2 Dependence on renal dialysis; Z68.23 Body mass index [BMI] 23.0-23.9, adult; Z79.01 Long term (current) use of anticoagulants
CPT/HCPCS: 36415; 70450; 70551; 71045; 74177; 80048; 80053; 80076; 82274; 82550; 82553; 82947; 83605; 83690; 83735; 84100; 84132; 84134; 84145; 84478; 84484; 85014; 85018; 85025; 85049; 85610; 85730; 86317; 86704; 86706; 86850; 86900; 86901; 87040; 87340; 90935; 93005; 94760; 96365; 96367; 96368; 96375; 97110; 97112; 97161; 97164; 97530; 99285; C9113; J0692; J0696; J0744; J1160; J1644; J1815; J1940; J2370; J2405; J2704; J3010; J7030; J7040; J7042; P9016; P9047; Q9967

== ENCOUNTER 2019-10-01 15:50 | Inpatient (IN) | payer OTHER ==
[2019-10-01] MEDS ORDERED: ONDANSETRON 4 MG/2 ML VIAL IV PRN (15:55)
--- OUTSIDE RECORDS SUMMARY | 2019-10-01 15:57 | XMS REPORT ---
:1950 [facility] Address [address] [place] [address] Care Team Providers Name Role Phone IOANA [...] (BEAKER) (test 166 mg/dL 70-110 TESTED AT [address] vles=2893) [place] [id number] POCT-GLUCOSE [id number] 12:21:00 Test Item Value Reference Range Comments POC-GLUCOSE METER (BEAKER) 208 mg/dL 70-110 TESTED AT [address] (test wmox=4654) [place] [id number] POCT-GLUCOSE [id number] 08:37:00 Test Item Value Reference Range Comments POC-GLUCOSE METER (BEAKER) 123 mg/dL 70-110 TESTED AT [address] (test iuvh=6676) [facility] [address] BASIC METABOLIC [id number] 07:25:00 Test Item Value Reference Range Comments SODIUM (BEAKER) (test 133 meq/L 136-145 xaxg=640) POTASSIUM (BEAKER) (test 3.7 meq/L 3.5-5.1 znah=353) CHLORIDE (BEAKER) (test 101 meq/L 98-107 znqa=600) CO2 (BEAKER) (test 21 meq/L 22-29 nqzl=438) BLOOD UREA NITROGEN 65 mg/dL 7-21 (BEAKER) (test unsr=613) CREATININE (BEAKER) (test 3.63 mg/dL 0.57-1.25 klcn=224) GLUCOSE RANDOM (BEAKER) 107 mg/dL 70-105 (test ryro=311) CALCIUM (BEAKER) (test 8.2 mg/dL 8.4-10.2 bdks=546) EGFR (BEAKER) (test 12 mL/min/1.73 sq m ESTIMATED GFR IS NOT wtpw=2199) ACCURATE CREATININE CLEARANCE IN PREDICTING GLOMERULAR FILTRATION RATE. ESTIMATED GFR IS NOT APPLICABLE FOR DIALYSIS PATIENTS. [id number] 07:23:00 Test Item Value Reference Range Comments PHOSPHORUS (BEAKER) (test fznx=726) 4.0 mg/dL 2.3-4.7 [id number] 07:23:00 Test Item Value Reference Range Comments MAGNESIUM (BEAKER) (test mhaq=189) 2.1 mg/dL 1.6-2.6 CALCIUM, [id number] 06:57:00 Test Item Value Reference Range Comments CALCIUM IONIZED (BEAKER) (test xscq=897) 1.06 mmol/L 1.12-1.27 PH, BLOOD (BEAKER) (test ubiy=1297) 7.41 B-TYPE NATRIURETIC FACTOR (BNP)2019-07-12 06:27:00 Test Item Value Reference Range Comments B-TYPE NATRIURETIC PEPTIDE (BEAKER) (test 1549 pg/mL 0-100 sjjl=026) CBC W/PLT COUNT & AUTO [id number] 05:46:00 Test Item Value Reference Range Comments WHITE BLOOD CELL COUNT (BEAKER) (test mlsa=630) 11.2 K/ L 3.5-10.5 RED BLOOD CELL COUNT (BEAKER) (test hmjm=467) 2.72 M/ L 3.93-5.22 HEMOGLOBIN (BEAKER) (test wnpe=293) 8.1 GM/DL 11.2-15.7 HEMATOCRIT (BEAKER) (test eaar=335) 25.6 % 34.1-44.9 MEAN CORPUSCULAR VOLUME (BEAKER) (test uftq=106) 94.1 fL 79.4-94.8 MEAN CORPUSCULAR HEMOGLOBIN (BEAKER) (test 29.8 pg 25.6-32.2 mkgj=456) MEAN CORPUSCULAR HEMOGLOBIN CONC (BEAKER) (test 31.6 GM/DL 32.2-35.5 qind=791) RED CELL DISTRIBUTION WIDTH (BEAKER) (test 15.2 % 11.7-14.4 lexz=459) PLATELET COUNT (BEAKER) (test nwse=139) 226 K/CU MM 150-450 MEAN PLATELET VOLUME (BEAKER) (test nowc=461) 12.0 fL 9.4-12.3 NUCLEATED RED BLOOD CELLS (BEAKER) (test 0 /100 WBC 0-0 kros=859) NEUTROPHILS RELATIVE PERCENT (BEAKER) (test 81 % fbhd=784) LYMPHOCYTES RELATIVE PERCENT (BEAKER) (test 9 % jnop=073) MONOCYTES RELATIVE PERCENT (BEAKER) (test 5 % ygqb=493) EOSINOPHILS RELATIVE PERCENT (BEAKER) (test 2 % qvrj=104) BASOPHILS RELATIVE PERCENT (BEAKER) (test 0 % lbxc=860) NEUTROPHILS ABSOLUTE COUNT (BEAKER) (test 9.11 K/ L 1.56-6.13 guqj=734) LYMPHOCYTES ABSOLUTE COUNT (BEAKER) (test 1.06 K/ L 1.18-3.74 uglx=407) MONOCYTES ABSOLUTE COUNT (BEAKER) (test 0.61 K/ L 0.24-0.36 aspx=484) EOSINOPHILS ABSOLUTE COUNT (BEAKER) (test 0.27 K/ L 0.04-0.36 ysqk=440) BASOPHILS ABSOLUTE COUNT (BEAKER) (test 0.04 K/ L 0.01-0.08 mbim=123) IMMATURE GRANULOCYTES-RELATIVE PERCENT (BEAKER) 1 % 0-1 (test binc=3411) POCT-GLUCOSE [id number] 23:24:00 Test Item Value Reference Range Comments POC-GLUCOSE METER (BEAKER) 115 mg/dL 70-110 TESTED AT [address] (test qhxf=6879) [place] [address] POCT-GLUCOSE [id number] 17:28:00 Test Item Value Reference Range Comments POC-GLUCOSE METER (BEAKER) 233 mg/dL 70-110 TESTED AT [address] (test kkxg=6460) [place] [address] POCT-GLUCOSE [id number] 08:05:00 Test Item Value Reference Range Comments POC-GLUCOSE METER (BEAKER) 207 mg/dL 70-110 TESTED AT [address] (test flwe=7034) [place] [address] BASIC METABOLIC [id number] 05:43:00 Test Item Value Reference Range Comments SODIUM (BEAKER) (test 137 meq/L 136-145 iezp=753) POTASSIUM (BEAKER) (test 4.0 meq/L 3.5-5.1 ofnn=209) CHLORIDE (BEAKER) (test 103 meq/L 98-107 fzbw=812) CO2 (BEAKER) (test 24 meq/L 22-29 tucc=307) BLOOD UREA NITROGEN 69 mg/dL 7-21 (BEAKER) (test jhpc=191) CREATININE (BEAKER) (test 3.71 mg/dL 0.57-1.25 qjwh=770) GLUCOSE RANDOM (BEAKER) 111 mg/dL 70-105 (test uagi=376) CALCIUM (BEAKER) (test 8.4 mg/dL 8.4-10.2 fhem=722) EGFR (BEAKER) (test 12 mL/min/1.73 sq m ESTIMATED GFR IS NOT twhe=0125) ACCURATE CREATININE CLEARANCE IN PREDICTING GLOMERULAR FILTRATION RATE. ESTIMATED GFR IS NOT APPLICABLE FOR DIALYSIS PATIENTS. CALCIUM, [id number] 05:36:00 Test Item Value Reference Range Comments CALCIUM IONIZED (BEAKER) (test izik=578) 1.03 mmol/L 1.12-1.27 PH, BLOOD (BEAKER) (test ioxr=8284) 7.43 URIC [id number] 05:32:00 Test Item Value Reference Range Comments URIC ACID (BEAKER) (test ymbf=115) 9.9 mg/dL 2.6-7.2 [id number] 05:32:00 Test Item Value Reference Range Comments MAGNESIUM (BEAKER) (test oddy=428) 2.1 mg/dL 1.6-2.6 [id number] 05:32:00 Test Item Value Reference Range Comments PHOSPHORUS (BEAKER) (test ysoj=851) 4.7 mg/dL 2.3-4.7 B-TYPE NATRIURETIC FACTOR (BNP)2019-07-11 05:29:00 Test Item Value Reference Range Comments B-TYPE NATRIURETIC PEPTIDE (BEAKER) (test 1730 pg/mL 0-100 nnsz=414) CBC W/PLT COUNT & AUTO [id number] 05:24:00 Test Item Value Reference Range Comments WHITE BLOOD CELL COUNT (BEAKER) (test catg=557) 12.5 K/ L 3.5-10.5 RED BLOOD CELL COUNT (BEAKER) (test cvsk=199) 2.83 M/ L 3.93-5.22 HEMOGLOBIN (BEAKER) (test fvsw=084) 8.5 GM/DL 11.2-15.7 HEMATOCRIT (BEAKER) (test efzu=569) 27.2 % 34.1-44.9 MEAN CORPUSCULAR VOLUME (BEAKER) (test grdo=326) 96.1 fL 79.4-94.8 MEAN CORPUSCULAR HEMOGLOBIN (BEAKER) (test 30.0 pg 25.6-32.2 oxdq=044) MEAN CORPUSCULAR HEMOGLOBIN CONC (BEAKER) (test 31.3 GM/DL 32.2-35.5 dsqt=930) RED CELL DISTRIBUTION WIDTH (BEAKER) (test 15.1 % 11.7-14.4 vtqo=034) PLATELET COUNT (BEAKER) (test kuyt=353) 213 K/CU MM 150-450 MEAN PLATELET VOLUME (BEAKER) (test bfvp=299) 11.8 fL 9.4-12.3 NUCLEATED RED BLOOD CELLS (BEAKER) (test 0 /100 WBC 0-0 oezv=283) NEUTROPHILS RELATIVE PERCENT (BEAKER) (test 85 % drvk=437) LYMPHOCYTES RELATIVE PERCENT (BEAKER) (test 8 % wlzq=223) MONOCYTES RELATIVE PERCENT (BEAKER) (test 5 % tpao=294) EOSINOPHILS RELATIVE PERCENT (BEAKER) (test 1 % wxwc=180) BASOPHILS RELATIVE PERCENT (BEAKER) (test 0 % wabs=416) NEUTROPHILS ABSOLUTE COUNT (BEAKER) (test 10.56 K/ L 1.56-6.13 uajz=743) LYMPHOCYTES ABSOLUTE COUNT (BEAKER) (test 0.96 K/ L 1.18-3.74 iumo=588) MONOCYTES ABSOLUTE COUNT (BEAKER) (test 0.60 K/ L 0.24-0.36 yzdr=549) EOSINOPHILS ABSOLUTE COUNT (BEAKER) (test 0.18 K/ L 0.04-0.36 mpnv=851) BASOPHILS ABSOLUTE COUNT (BEAKER) (test 0.05 K/ L 0.01-0.08 pifh=514) IMMATURE GRANULOCYTES-RELATIVE PERCENT (BEAKER) 1 % 0-1 (test jded=9966) POCT-GLUCOSE [id number] 21:48:00 Test Item Value Reference Range Comments POC-GLUCOSE METER (BEAKER) 130 mg/dL 70-110 TESTED AT [address] (test lkxn=6862) [facility] [address] POCT-GLUCOSE [id number] 17:38:00 Test Item Value Reference Range Comments POC-GLUCOSE METER (BEAKER) 240 mg/dL 70-110 TESTED AT [address] (test gxnt=8681) [facility] [address] MR, BRAIN, WITHOUT [id number] 13:28:00Reason for exam:->word finding difficultyFINAL REPORT MR, [...] Dugganepbart Verified Date/Time: 07/10/2019 13:28:15 Reading Location: [address] Neuro Reading Room POCT-GLUCOSE [id number] 12:10:00 Test Item Value Reference Range Comments POC-GLUCOSE METER (BEAKER) 261 mg/dL 70-110 TESTED AT [address] (test nxph=9016) [facility] [address] POCT-GLUCOSE [id number] 08:01:00 Test Item Value Reference Range Comments POC-GLUCOSE METER (BEAKER) 119 mg/dL 70-110 TESTED AT [address] (test gmzi=2170) [place] [address] BASIC METABOLIC [id number] 06:22:00 Test Item Value Reference Range Comments SODIUM (BEAKER) (test 135 meq/L 136-145 axim=989) POTASSIUM (BEAKER) (test 3.6 meq/L 3.5-5.1 como=048) CHLORIDE (BEAKER) (test 103 meq/L 98-107 nagu=922) CO2 (BEAKER) (test 21 meq/L 22-29 mxlq=886) BLOOD UREA NITROGEN 71 mg/dL 7-21 (BEAKER) (test opsq=011) CREATININE (BEAKER) (test 3.62 mg/dL 0.57-1.25 uypb=185) GLUCOSE RANDOM (BEAKER) 102 mg/dL 70-105 (test urtf=419) CALCIUM (BEAKER) (test 8.2 mg/dL 8.4-10.2 gnmx=521) EGFR (BEAKER) (test 12 mL/min/1.73 sq m ESTIMATED GFR IS NOT zref=9651) ACCURATE CREATININE CLEARANCE IN PREDICTING GLOMERULAR FILTRATION RATE. ESTIMATED GFR IS NOT APPLICABLE FOR DIALYSIS PATIENTS. [id number] 06:21:00 Test Item Value Reference Range Comments MAGNESIUM (BEAKER) (test pyuw=499) 2.0 mg/dL 1.6-2.6 CBC W/PLT COUNT & AUTO [id number] 06:10:00 Test Item Value Reference Range Comments WHITE BLOOD CELL COUNT (BEAKER) (test bpby=962) 13.1 K/ L 3.5-10.5 RED BLOOD CELL COUNT (BEAKER) (test ylxh=295) 2.70 M/ L 3.93-5.22 HEMOGLOBIN (BEAKER) (test zpbf=120) 8.2 GM/DL 11.2-15.7 HEMATOCRIT (BEAKER) (test xoho=619) 25.4 % 34.1-44.9 MEAN CORPUSCULAR VOLUME (BEAKER) (test duoo=069) 94.1 fL 79.4-94.8 MEAN CORPUSCULAR HEMOGLOBIN (BEAKER) (test 30.4 pg 25.6-32.2 idha=925) MEAN CORPUSCULAR HEMOGLOBIN CONC (BEAKER) (test 32.3 GM/DL 32.2-35.5 jybm=573) RED CELL DISTRIBUTION WIDTH (BEAKER) (test 14.9 % 11.7-14.4 oqug=591) PLATELET COUNT (BEAKER) (test lsps=342) 231 K/CU MM 150-450 MEAN PLATELET VOLUME (BEAKER) (test dlaz=957) 12.2 fL 9.4-12.3 NUCLEATED RED BLOOD CELLS (BEAKER) (test 0 /100 WBC 0-0 zzvp=416) NEUTROPHILS RELATIVE PERCENT (BEAKER) (test 80 % tuym=925) LYMPHOCYTES RELATIVE PERCENT (BEAKER) (test 10 % vqmv=863) MONOCYTES RELATIVE PERCENT (BEAKER) (test 6 % xkwu=348) EOSINOPHILS RELATIVE PERCENT (BEAKER) (test 2 % pgbn=121) BASOPHILS RELATIVE PERCENT (BEAKER) (test 1 % iohf=262) NEUTROPHILS ABSOLUTE COUNT (BEAKER) (test 10.50 K/ L 1.56-6.13 edpw=477) LYMPHOCYTES ABSOLUTE COUNT (BEAKER) (test 1.32 K/ L 1.18-3.74 rqob=869) MONOCYTES ABSOLUTE COUNT (BEAKER) (test 0.72 K/ L 0.24-0.36 wcaq=795) EOSINOPHILS ABSOLUTE COUNT (BEAKER) (test 0.24 K/ L 0.04-0.36 snil=609) BASOPHILS ABSOLUTE COUNT (BEAKER) (test 0.06 K/ L 0.01-0.08 ttmb=713) IMMATURE GRANULOCYTES-RELATIVE PERCENT (BEAKER) 2 % 0-1 (test shoz=7930) RAD, CHEST, 1 VIEW, NON [id number] 23:46:00Reason for exam:->increased coughShould this be performed [...] Hou Verified Date/ Time: 07/09/2019 23:46:51 POCT-GLUCOSE [id number] 21:27:00 Test Item Value Reference Range Comments POC-GLUCOSE METER (BEAKER) 168 mg/dL 70-110 TESTED AT [address] (test mygc=2426) [facility] [address] POCT-GLUCOSE [id number] 17:26:00 Test Item Value Reference Range Comments POC-GLUCOSE METER (BEAKER) 263 mg/dL 70-110 TESTED AT [address] (test zajo=2916) [facility] [address] POCT-GLUCOSE [id number] 12:02:00 Test Item Value Reference Range Comments POC-GLUCOSE METER (BEAKER) 228 mg/dL 70-110 TESTED AT [address] (test uglr=6416) [facility] [address] POCT-GLUCOSE [id number] 08:08:00 Test Item Value Reference Range Comments POC-GLUCOSE METER (BEAKER) 134 mg/dL 70-110 TESTED AT [address] (test lhye=7978) [facility] [address] CALCIUM, [id number] 08:03:00 Test Item Value Reference Range Comments CALCIUM IONIZED (BEAKER) (test rkym=796) 0.98 mmol/L 1.12-1.27 PH, BLOOD (BEAKER) (test scrp=2152) 7.50 COMPREHENSIVE METABOLIC [id number] 07:11:00 Test Item Value Reference Range Comments TOTAL PROTEIN (BEAKER) 5.6 gm/dL 6.0-8.3 (test isyn=537) ALBUMIN (BEAKER) (test 2.7 g/dL 3.5-5.0 sofb=0480) ALKALINE PHOSPHATASE 63 U/L 40-150 (BEAKER) (test vchk=942) BILIRUBIN TOTAL (BEAKER) 0.4 mg/dL 0.2-1.2 (test fold=820) SODIUM (BEAKER) (test 138 meq/L 136-145 srbt=038) POTASSIUM (BEAKER) (test 3.6 meq/L 3.5-5.1 lchn=216) CHLORIDE (BEAKER) (test 103 meq/L 98-107 hlef=045) CO2 (BEAKER) (test 23 meq/L 22-29 gnqz=466) BLOOD UREA NITROGEN 73 mg/dL 7-21 (BEAKER) (test emtl=848) CREATININE (BEAKER) (test 3.45 mg/dL 0.57-1.25 lwip=663) GLUCOSE RANDOM (BEAKER) 126 mg/dL 70-105 (test jtag=196) CALCIUM (BEAKER) (test 8.3 mg/dL 8.4-10.2 pvgz=586) AST (SGOT) (BEAKER) (test 26 U/L 5-34 qutu=643) ALT (SGPT) (BEAKER) (test 15 U/L 6-55 umwy=757) EGFR (BEAKER) (test 13 mL/min/1.73 sq m ESTIMATED GFR IS NOT frzv=1651) ACCURATE CREATININE CLEARANCE IN PREDICTING GLOMERULAR FILTRATION RATE. ESTIMATED GFR IS NOT APPLICABLE FOR DIALYSIS PATIENTS. [id number] 07:00:00 Test Item Value Reference Range Comments PHOSPHORUS (BEAKER) (test mrul=583) 3.8 mg/dL 2.3-4.7 [id number] 07:00:00 Test Item Value Reference Range Comments MAGNESIUM (BEAKER) (test klqt=571) 2.1 mg/dL 1.6-2.6 CBC W/PLT COUNT & AUTO [id number] 06:33:00 Test Item Value Reference Range Comments WHITE BLOOD CELL COUNT (BEAKER) (test iytx=508) 14.4 K/ L 3.5-10.5 RED BLOOD CELL COUNT (BEAKER) (test ekmc=219) 2.84 M/ L 3.93-5.22 HEMOGLOBIN (BEAKER) (test srtz=048) 8.5 GM/DL 11.2-15.7 HEMATOCRIT (BEAKER) (test whcz=296) 26.2 % 34.1-44.9 MEAN CORPUSCULAR VOLUME (BEAKER) (test evvz=027) 92.3 fL 79.4-94.8 MEAN CORPUSCULAR HEMOGLOBIN (BEAKER) (test 29.9 pg 25.6-32.2 eyqe=694) MEAN CORPUSCULAR HEMOGLOBIN CONC (BEAKER) (test 32.4 GM/DL 32.2-35.5 rtqx=009) RED CELL DISTRIBUTION WIDTH (BEAKER) (test 14.7 % 11.7-14.4 wfwp=803) PLATELET COUNT (BEAKER) (test appu=866) 243 K/CU MM 150-450 MEAN PLATELET VOLUME (BEAKER) (test eyug=485) 12.6 fL 9.4-12.3 NUCLEATED RED BLOOD CELLS (BEAKER) (test 0 /100 WBC 0-0 wxsw=300) NEUTROPHILS RELATIVE PERCENT (BEAKER) (test 82 % cylb=994) LYMPHOCYTES RELATIVE PERCENT (BEAKER) (test 8 % lqfr=040) MONOCYTES RELATIVE PERCENT (BEAKER) (test 7 % kkkk=631) EOSINOPHILS RELATIVE PERCENT (BEAKER) (test 2 % sjkq=646) BASOPHILS RELATIVE PERCENT (BEAKER) (test 0 % mjpa=908) NEUTROPHILS ABSOLUTE COUNT (BEAKER) (test 11.77 K/ L 1.56-6.13 fkvg=005) LYMPHOCYTES ABSOLUTE COUNT (BEAKER) (test 1.08 K/ L 1.18-3.74 zdpo=447) MONOCYTES ABSOLUTE COUNT (BEAKER) (test 0.98 K/ L 0.24-0.36 vtgz=093) EOSINOPHILS ABSOLUTE COUNT (BEAKER) (test 0.31 K/ L 0.04-0.36 fthn=862) BASOPHILS ABSOLUTE COUNT (BEAKER) (test 0.04 K/ L 0.01-0.08 ljih=893) IMMATURE GRANULOCYTES-RELATIVE PERCENT (BEAKER) 2 % 0-1 (test ilgd=8498) POCT-GLUCOSE [id number] 21:30:00 Test Item Value Reference Range Comments POC-GLUCOSE METER (BEAKER) 196 mg/dL 70-110 TESTED AT [address] (test zqzr=3360) [place] [address] POCT-GLUCOSE [id number] 17:34:00 Test Item Value Reference Range Comments POC-GLUCOSE METER (BEAKER) 234 mg/dL 70-110 TESTED AT [address] (test hndv=1121) [place] [address] DIGOXIN [id number] 12:51:00 Test Item Value Reference Range Comments DIGOXIN LEVEL (BEAKER) (test frhh=970) 0.9 ng/mL 0.8-2.0 POCT-GLUCOSE [id number] 11:52:00 Test Item Value Reference Range Comments POC-GLUCOSE METER (BEAKER) 222 mg/dL 70-110 TESTED AT [address] (test iwto=8409) [place] [address] POCT-GLUCOSE [id number] 08:40:00 Test Item Value Reference Range Comments POC-GLUCOSE METER (BEAKER) 120 mg/dL 70-[address] [facility] [address] (test teqh=3506) [place] [address] CALCIUM, [id number] 07:04:00 Test Item Value Reference Range Comments CALCIUM IONIZED (BEAKER) (test xpfo=303) 1.07 mmol/L 1.12-1.27 PH, BLOOD (BEAKER) (test jicu=2480) 7.42 CBC W/PLT COUNT & AUTO [id number] 06:48:00 Test Item Value Reference Range Comments WHITE BLOOD CELL COUNT (BEAKER) (test equf=671) 14.3 K/ L 3.5-10.5 RED BLOOD CELL COUNT (BEAKER) (test mqmk=827) 3.03 M/ L 3.93-5.22 HEMOGLOBIN (BEAKER) (test cexm=489) 9.0 GM/DL 11.2-15.7 HEMATOCRIT (BEAKER) (test tkzn=799) 28.2 % 34.1-44.9 MEAN CORPUSCULAR VOLUME (BEAKER) (test ztok=661) 93.1 fL 79.4-94.8 MEAN CORPUSCULAR HEMOGLOBIN (BEAKER) (test 29.7 pg 25.6-32.2 qcit=826) MEAN CORPUSCULAR HEMOGLOBIN CONC (BEAKER) (test 31.9 GM/DL 32.2-35.5 dyel=734) RED CELL DISTRIBUTION WIDTH (BEAKER) (test 14.7 % 11.7-14.4 mujr=259) PLATELET COUNT (BEAKER) (test lobq=284) 257 K/CU MM 150-450 MEAN PLATELET VOLUME (BEAKER) (test frjt=498) 12.2 fL 9.4-12.3 NUCLEATED RED BLOOD CELLS (BEAKER) (test 0 /100 WBC 0-0 ahqm=903) NEUTROPHILS RELATIVE PERCENT (BEAKER) (test 83 % czao=508) LYMPHOCYTES RELATIVE PERCENT (BEAKER) (test 7 % ssaa=686) MONOCYTES RELATIVE PERCENT (BEAKER) (test 6 % cotb=975) EOSINOPHILS RELATIVE PERCENT (BEAKER) (test 2 % slgr=145) BASOPHILS RELATIVE PERCENT (BEAKER) (test 0 % wgdh=437) NEUTROPHILS ABSOLUTE COUNT (BEAKER) (test 11.82 K/ L 1.56-6.13 utkk=023) LYMPHOCYTES ABSOLUTE COUNT (BEAKER) (test 1.01 K/ L 1.18-3.74 pwzk=124) MONOCYTES ABSOLUTE COUNT (BEAKER) (test 0.89 K/ L 0.24-0.36 yydr=193) EOSINOPHILS ABSOLUTE COUNT (BEAKER) (test 0.26 K/ L 0.04-0.36 pepc=801) BASOPHILS ABSOLUTE COUNT (BEAKER) (test 0.02 K/ L 0.01-0.08 fzey=886) IMMATURE GRANULOCYTES-RELATIVE PERCENT (BEAKER) 2 % 0-1 (test oiex=4224) CREATINE KINASE (CK)2019-07-08 06:22:00 Test Item Value Reference Range Comments CREATINE KINASE TOTAL (BEAKER) (test inpf=622) 18 U/L 29-200 COMPREHENSIVE METABOLIC [id number] 06:22:00 Test Item Value Reference Range Comments TOTAL PROTEIN (BEAKER) 5.6 gm/dL 6.0-8.3 (test bmbm=899) ALBUMIN (BEAKER) (test 2.7 g/dL 3.5-5.0 oryt=1081) ALKALINE PHOSPHATASE 58 U/L 40-150 (BEAKER) (test xuhm=081) BILIRUBIN TOTAL (BEAKER) 0.5 mg/dL 0.2-1.2 (test loaa=737) SODIUM (BEAKER) (test 136 meq/L 136-145 rpym=043) POTASSIUM (BEAKER) (test 3.6 meq/L 3.5-5.1 okuc=339) CHLORIDE (BEAKER) (test 103 meq/L 98-107 wtnc=042) CO2 (BEAKER) (test 23 meq/L 22-29 bznf=504) BLOOD UREA NITROGEN 80 mg/dL 7-21 (BEAKER) (test suyl=658) CREATININE (BEAKER) (test 3.10 mg/dL 0.57-1.25 hgwl=838) GLUCOSE RANDOM (BEAKER) 107 mg/dL 70-105 (test nwje=955) CALCIUM (BEAKER) (test 8.3 mg/dL 8.4-10.2 bhok=093) AST (SGOT) (BEAKER) (test 16 U/L 5-34 xfkg=460) ALT (SGPT) (BEAKER) (test 10 U/L 6-55 apvs=567) EGFR (BEAKER) (test 15 mL/min/1.73 sq m ESTIMATED GFR IS NOT quca=5462) ACCURATE CREATININE CLEARANCE IN PREDICTING GLOMERULAR FILTRATION RATE. ESTIMATED GFR IS NOT APPLICABLE FOR DIALYSIS PATIENTS. [id number] 06:20:00 Test Item Value Reference Range Comments PHOSPHORUS (BEAKER) (test mckc=474) 4.3 mg/dL 2.3-4.7 [id number] 06:20:00 Test Item Value Reference Range Comments MAGNESIUM (BEAKER) (test clqo=538) 2.2 mg/dL 1.6-2.6 B-TYPE NATRIURETIC FACTOR (BNP)2019-07-08 06:16:00 Test Item Value Reference Range Comments B-TYPE NATRIURETIC PEPTIDE (BEAKER) (test 1115 pg/mL 0-100 vetz=226) POCT-GLUCOSE [id number] 22:01:00 Test Item Value Reference Range Comments POC-GLUCOSE METER (BEAKER) 144 mg/dL 70-[address] [facility] [address] (test avgp=2655) [facility] [address] CREATININE, RANDOM [id number] 21:14:00 Test Item Value Reference Range Comments CREATININE URINE (BEAKER) (test fkeg=243) 63.2 mg/dL Reference Range: No NormalsPROTEIN, RANDOM [id number] 21:14:00 Test Item Value Reference Range Comments PROTEIN, URINE (BEAKER) (test kbvq=0437) 23 mg/dL 0-14 SODIUM, RANDOM [id number] 21:14:00 Test Item Value Reference Range Comments SODIUM URINE (BEAKER) (test okiu=030) 29 meq/L Reference Range: No NormalsEOSINOPHIL SMEAR, [id number] 20:57:00 Test Item Value Reference Range Comments EOSINOPHIL SMEAR, URINE (BEAKER) (test No EOS seen No EOS seen pjzn=0435) URINALYSIS W/ [id number] 20:21:00 Test Item Value Reference Range Comments COLOR (BEAKER) (test iotd=653) Yellow CLARITY (BEAKER) (test sihj=074) Hazy SPECIFIC GRAVITY UA (BEAKER) (test xahm=179) 1.012 1.001-1.035 PH UA (BEAKER) (test rqos=241) 5.5 5.0-8.0 PROTEIN UA (BEAKER) (test upch=535) 20 mg/dL Negative GLUCOSE UA (BEAKER) (test bmlo=882) Negative Negative KETONES UA (BEAKER) (test idfa=999) Negative Negative BILIRUBIN UA (BEAKER) (test qduh=071) Negative Negative BLOOD UA (BEAKER) (test qcva=717) Trace Negative NITRITE UA (BEAKER) (test zuoh=638) Negative Negative LEUKOCYTE ESTERASE UA (BEAKER) (test tlfm=277) Large Negative UROBILINOGEN UA (BEAKER) (test hzab=844) 0.2 mg/dL 0.2-1.0 RBC UA (BEAKER) (test dawk=733) 1 /HPF WBC UA (BEAKER) (test babp=410) 31 /HPF MUCUS (BEAKER) (test zpnv=6624) Rare SQUAMOUS EPITHELIAL (BEAKER) (test yryp=047) 2 /HPF YEAST (BEAKER) (test ptlr=3097) Few SOURCE(BEAKER) (test lvkk=9318) POCT-GLUCOSE [id number] 17:32:00 Test Item Value Reference Range Comments POC-GLUCOSE METER (BEAKER) 168 mg/dL 70-[address] [facility] [address] (test vvxd=5016) [facility] [address] B-TYPE NATRIURETIC FACTOR (BNP)2019-07-07 17:05:00 Test Item Value Reference Range Comments B-TYPE NATRIURETIC PEPTIDE (BEAKER) (test 957 pg/mL 0-100 ivyi=509) BASIC METABOLIC [id number] 15:29:00 Test Item Value Reference Range Comments SODIUM (BEAKER) (test 134 meq/L 136-145 jcdt=023) POTASSIUM (BEAKER) (test 4.0 meq/L 3.5-5.1 Specimen slightly lehz=349) hemolyzed CHLORIDE (BEAKER) (test 101 meq/L 98-107 jdjk=243) CO2 (BEAKER) (test 24 meq/L 22-29 rcsa=290) BLOOD UREA NITROGEN 85 mg/dL 7-21 (BEAKER) (test prmy=346) CREATININE (BEAKER) (test 3.17 mg/dL 0.57-1.25 Specimen slightly zmaf=962) hemolyzed GLUCOSE RANDOM (BEAKER) 196 mg/dL 70-105 (test pqtr=866) CALCIUM (BEAKER) (test 8.2 mg/dL 8.4-10.2 oyyt=438) EGFR (BEAKER) (test 14 mL/min/1.73 sq m ESTIMATED GFR IS NOT zyjh=7485) ACCURATE CREATININE CLEARANCE IN PREDICTING GLOMERULAR FILTRATION RATE. ESTIMATED GFR IS NOT APPLICABLE FOR DIALYSIS PATIENTS. [id number] 15:20:00 Test Item Value Reference Range Comments MAGNESIUM (BEAKER) (test 2.2 mg/dL 1.6-2.6 Specimen slightly hemolyzed vuxa=556) [id number] 15:20:00 Test Item Value Reference Range Comments PHOSPHORUS (BEAKER) (test 4.4 mg/dL 2.3-4.7 Specimen slightly hemolyzed yxvo=071) CBC W/PLT COUNT & AUTO [id number] 15:13:00 Test Item Value Reference Range Comments WHITE BLOOD CELL COUNT (BEAKER) (test mvvv=929) 12.9 K/ L 3.5-10.5 RED BLOOD CELL COUNT (BEAKER) (test lhxb=548) 3.02 M/ L 3.93-5.22 HEMOGLOBIN (BEAKER) (test ztaa=100) 9.1 GM/DL 11.2-15.7 HEMATOCRIT (BEAKER) (test vbtd=945) 28.2 % 34.1-44.9 MEAN CORPUSCULAR VOLUME (BEAKER) (test qbba=226) 93.4 fL 79.4-94.8 MEAN CORPUSCULAR HEMOGLOBIN (BEAKER) (test 30.1 pg 25.6-32.2 wqrg=555) MEAN CORPUSCULAR HEMOGLOBIN CONC (BEAKER) (test 32.3 GM/DL 32.2-35.5 ttjt=725) RED CELL DISTRIBUTION WIDTH (BEAKER) (test 14.7 % 11.7-14.4 inwf=231) PLATELET COUNT (BEAKER) (test augx=514) 250 K/CU MM 150-450 MEAN PLATELET VOLUME (BEAKER) (test zmpg=530) 12.2 fL 9.4-12.3 NUCLEATED RED BLOOD CELLS (BEAKER) (test 0 /100 WBC 0-0 knay=669) NEUTROPHILS RELATIVE PERCENT (BEAKER) (test 91 % kzbg=848) LYMPHOCYTES RELATIVE PERCENT (BEAKER) (test 4 % ksqu=061) MONOCYTES RELATIVE PERCENT (BEAKER) (test 3 % yhbq=334) EOSINOPHILS RELATIVE PERCENT (BEAKER) (test 1 % csep=919) BASOPHILS RELATIVE PERCENT (BEAKER) (test 0 % vvko=547) NEUTROPHILS ABSOLUTE COUNT (BEAKER) (test 11.70 K/ L 1.56-6.13 ahyd=201) LYMPHOCYTES ABSOLUTE COUNT (BEAKER) (test 0.51 K/ L 1.18-3.74 fkkc=944) MONOCYTES ABSOLUTE COUNT (BEAKER) (test 0.41 K/ L 0.24-0.36 aomd=473) EOSINOPHILS ABSOLUTE COUNT (BEAKER) (test 0.10 K/ L 0.04-0.36 hggg=827) BASOPHILS ABSOLUTE COUNT (BEAKER) (test 0.02 K/ L 0.01-0.08 fnsq=235) IMMATURE GRANULOCYTES-RELATIVE PERCENT (BEAKER) 1 % 0-1 (test lnvh=4185) CALCIUM, [id number] 15:11:00 Test Item Value Reference Range Comments CALCIUM IONIZED (BEAKER) (test mxdc=852) 1.08 mmol/L 1.12-1.27 PH, BLOOD (BEAKER) (test ywrn=8956) 7.47 POCT-GLUCOSE [id number] 12:18:00 Test Item Value Reference Range Comments POC-GLUCOSE METER (BEAKER) 213 mg/dL 70-110 TESTED AT [address] (test kwtm=3180) [place] [address] POCT-GLUCOSE [id number] 07:33:00 Test Item Value Reference Range Comments POC-GLUCOSE METER (BEAKER) 145 mg/dL 70-110 TESTED AT [address] (test jpuv=0520) [place] [address] POCT-GLUCOSE [id number] 23:40:00 Test Item Value Reference Range Comments POC-GLUCOSE METER (BEAKER) 139 mg/dL 70-110 TESTED AT [address] (test qswx=3136) [place] [address] BASIC METABOLIC [id number] 18:04:00 Test Item Value Reference Range Comments SODIUM (BEAKER) (test 133 meq/L 136-145 matf=569) POTASSIUM (BEAKER) (test 4.2 meq/L 3.5-5.1 fggo=586) CHLORIDE (BEAKER) (test 98 meq/L 98-107 wxdv=614) CO2 (BEAKER) (test 23 meq/L 22-29 qxrx=005) BLOOD UREA NITROGEN 93 mg/dL 7-21 (BEAKER) (test lllm=739) CREATININE (BEAKER) (test 3.14 mg/dL 0.57-1.25 frix=066) GLUCOSE RANDOM (BEAKER) 247 mg/dL 70-105 (test brqd=630) CALCIUM (BEAKER) (test 8.8 mg/dL 8.4-10.2 ipsm=569) EGFR (BEAKER) (test 15 mL/min/1.73 sq m ESTIMATED GFR IS NOT nvju=6104) ACCURATE CREATININE CLEARANCE IN PREDICTING GLOMERULAR FILTRATION RATE. ESTIMATED GFR IS NOT APPLICABLE FOR DIALYSIS PATIENTS. [id number] 18:02:00 Test Item Value Reference Range Comments PHOSPHORUS (BEAKER) (test tdnk=804) 4.6 mg/dL 2.3-4.7 [id number] 18:02:00 Test Item Value Reference Range Comments MAGNESIUM (BEAKER) (test ffvp=751) 2.3 mg/dL 1.6-2.6 B-TYPE NATRIURETIC FACTOR (BNP)2019-07-06 18:02:00 Test Item Value Reference Range Comments B-TYPE NATRIURETIC PEPTIDE (BEAKER) (test 570 pg/mL 0-100 pwih=867) POCT-GLUCOSE [id number] 17:39:00 Test Item Value Reference Range Comments POC-GLUCOSE METER (BEAKER) 212 mg/dL 70-[address] [facility] [address] [facility] (test uple=7360) [facility] [address] CALCIUM, [id number] 17:04:00 Test Item Value Reference Range Comments CALCIUM IONIZED (BEAKER) (test sfbk=193) 1.02 mmol/L 1.12-1.27 PH, BLOOD (BEAKER) (test cbru=6515) 7.39 CBC W/PLT COUNT & AUTO [id number] 16:58:00 Test Item Value Reference Range Comments WHITE BLOOD CELL COUNT (BEAKER) (test yyop=933) 13.4 K/ L 3.5-10.5 RED BLOOD CELL COUNT (BEAKER) (test pzcn=548) 3.48 M/ L 3.93-5.22 HEMOGLOBIN (BEAKER) (test tnyk=320) 10.4 GM/DL 11.2-15.7 HEMATOCRIT (BEAKER) (test vwko=075) 31.6 % 34.1-44.9 MEAN CORPUSCULAR VOLUME (BEAKER) (test xkyh=499) 90.8 fL 79.4-94.8 MEAN CORPUSCULAR HEMOGLOBIN (BEAKER) (test 29.9 pg 25.6-32.2 ouig=173) MEAN CORPUSCULAR HEMOGLOBIN CONC (BEAKER) (test 32.9 GM/DL 32.2-35.5 atpi=230) RED CELL DISTRIBUTION WIDTH (BEAKER) (test 14.6 % 11.7-14.4 urrw=864) PLATELET COUNT (BEAKER) (test cduw=482) 262 K/CU MM 150-450 MEAN PLATELET VOLUME (BEAKER) (test tdgv=246) 12.2 fL 9.4-12.3 NUCLEATED RED BLOOD CELLS (BEAKER) (test 0 /100 WBC 0-0 yrml=403) NEUTROPHILS RELATIVE PERCENT (BEAKER) (test 90 % vkdy=011) LYMPHOCYTES RELATIVE PERCENT (BEAKER) (test 4 % bddv=722) MONOCYTES RELATIVE PERCENT (BEAKER) (test 4 % asqw=829) EOSINOPHILS RELATIVE PERCENT (BEAKER) (test 1 % rsfg=745) BASOPHILS RELATIVE PERCENT (BEAKER) (test 0 % dmsi=332) NEUTROPHILS ABSOLUTE COUNT (BEAKER) (test 11.98 K/ L 1.56-6.13 tgvq=813) LYMPHOCYTES ABSOLUTE COUNT (BEAKER) (test 0.50 K/ L 1.18-3.74 kqey=572) MONOCYTES ABSOLUTE COUNT (BEAKER) (test 0.49 K/ L 0.24-0.36 hfko=234) EOSINOPHILS ABSOLUTE COUNT (BEAKER) (test 0.11 K/ L 0.04-0.36 wqko=920) BASOPHILS ABSOLUTE COUNT (BEAKER) (test 0.02 K/ L 0.01-0.08 xnon=211) IMMATURE GRANULOCYTES-RELATIVE PERCENT (BEAKER) 2 % 0-1 (test wgdp=1716) POCT-GLUCOSE [id number] 08:37:00 Test Item Value Reference Range Comments POC-GLUCOSE METER (BEAKER) 153 mg/dL 70-110 TESTED AT [address] (test ksgm=7489) [facility] [address] POCT-GLUCOSE [id number] 21:38:00 Test Item Value Reference Range Comments POC-GLUCOSE METER (BEAKER) 156 mg/dL 70-110 TESTED AT [address] (test rfaw=5516) [facility] [address] POCT-GLUCOSE [id number] 17:54:00 Test Item Value Reference Range Comments POC-GLUCOSE METER (BEAKER) 233 mg/dL 70-110 TESTED AT [address] (test ship=3518) [facility] [address] RAD, CHEST, 2 [id number] 17:50:00Reason for exam:->productive cough, new RLL infiltrate [...] Mirandaeport Verified Date/Time: 07/05/2019 17:50:57 Reading Location: [facility] Reading Room POCT-GLUCOSE [id number] 12:27:00 Test Item Value Reference Range Comments POC-GLUCOSE METER (BEAKER) 299 mg/dL 70-110 TESTED AT [address] (test mgmb=5707) [facility] [address] POCT-GLUCOSE [id number] 08:00:00 Test Item Value Reference Range Comments POC-GLUCOSE METER (BEAKER) 118 mg/dL 70-110 TESTED AT [address] (test pdxd=2973) [facility] [address] [id number] 07:40:00 Test Item Value Reference Range Comments MAGNESIUM (BEAKER) (test cnik=325) 2.3 mg/dL 1.6-2.6 BASIC METABOLIC [id number] 06:40:00 Test Item Value Reference Range Comments SODIUM (BEAKER) (test 135 meq/L 136-145 nyua=091) POTASSIUM (BEAKER) (test 3.9 meq/L 3.5-5.1 sfwz=917) CHLORIDE (BEAKER) (test 99 meq/L 98-107 waim=232) CO2 (BEAKER) (test 25 meq/L 22-29 wrxz=585) BLOOD UREA NITROGEN 101 mg/dL 7-21 (BEAKER) (test igoa=958) CREATININE (BEAKER) (test 2.77 mg/dL 0.57-1.25 ymvk=602) GLUCOSE RANDOM (BEAKER) 108 mg/dL 70-105 (test pnxd=367) CALCIUM (BEAKER) (test 8.9 mg/dL 8.4-10.2 spcj=260) EGFR (BEAKER) (test 17 mL/min/1.73 sq m ESTIMATED GFR IS NOT uhld=4827) ACCURATE CREATININE CLEARANCE IN PREDICTING GLOMERULAR FILTRATION RATE. ESTIMATED GFR IS NOT APPLICABLE FOR DIALYSIS PATIENTS. B-TYPE NATRIURETIC FACTOR (BNP)2019-07-05 05:47:00 Test Item Value Reference Range Comments B-TYPE NATRIURETIC PEPTIDE (BEAKER) (test 414 pg/mL 0-100 fdqc=158) CBC W/PLT COUNT & AUTO [id number] 05:09:00 Test Item Value Reference Range Comments WHITE BLOOD CELL COUNT (BEAKER) (test hlos=877) 14.9 K/ L 3.5-10.5 RED BLOOD CELL COUNT (BEAKER) (test ddbj=212) 3.38 M/ L 3.93-5.22 HEMOGLOBIN (BEAKER) (test dgrn=548) 10.2 GM/DL 11.2-15.7 HEMATOCRIT (BEAKER) (test yufp=316) 30.7 % 34.1-44.9 MEAN CORPUSCULAR VOLUME (BEAKER) (test bhuv=230) 90.8 fL 79.4-94.8 MEAN CORPUSCULAR HEMOGLOBIN (BEAKER) (test 30.2 pg 25.6-32.2 bkzu=769) MEAN CORPUSCULAR HEMOGLOBIN CONC (BEAKER) (test 33.2 GM/DL 32.2-35.5 bote=636) RED CELL DISTRIBUTION WIDTH (BEAKER) (test 14.6 % 11.7-14.4 orlo=935) PLATELET COUNT (BEAKER) (test uoew=854) 257 K/CU MM 150-450 MEAN PLATELET VOLUME (BEAKER) (test yutu=688) 12.2 fL 9.4-12.3 NUCLEATED RED BLOOD CELLS (BEAKER) (test 0 /100 WBC 0-0 pecu=558) NEUTROPHILS RELATIVE PERCENT (BEAKER) (test 84 % jiqa=886) LYMPHOCYTES RELATIVE PERCENT (BEAKER) (test 7 % zipv=653) MONOCYTES RELATIVE PERCENT (BEAKER) (test 5 % agfj=333) EOSINOPHILS RELATIVE PERCENT (BEAKER) (test 1 % pdwc=837) BASOPHILS RELATIVE PERCENT (BEAKER) (test 0 % qzdg=127) NEUTROPHILS ABSOLUTE COUNT (BEAKER) (test 12.50 K/ L 1.56-6.13 gvdx=721) LYMPHOCYTES ABSOLUTE COUNT (BEAKER) (test 1.09 K/ L 1.18-3.74 kvty=490) MONOCYTES ABSOLUTE COUNT (BEAKER) (test 0.78 K/ L 0.24-0.36 gtye=645) EOSINOPHILS ABSOLUTE COUNT (BEAKER) (test 0.14 K/ L 0.04-0.36 hgym=459) BASOPHILS ABSOLUTE COUNT (BEAKER) (test 0.03 K/ L 0.01-0.08 smia=048) IMMATURE GRANULOCYTES-RELATIVE PERCENT (BEAKER) 3 % 0-1 (test jzzo=9640) POCT-GLUCOSE [id number] 21:35:00 Test Item Value Reference Range Comments POC-GLUCOSE METER (BEAKER) 79 mg/dL 70-110 TESTED AT [address] (test ghst=4961) [place] [address] POCT-GLUCOSE [id number] 17:30:00 Test Item Value Reference Range Comments POC-GLUCOSE METER (BEAKER) 156 mg/dL 70-110 TESTED AT [address] (test dxzy=4758) [place] [address] POCT-GLUCOSE [id number] 15:05:00 Test Item Value Reference Range Comments POC-GLUCOSE METER (BEAKER) 211 mg/dL 70-110 TESTED AT [address] (test mzsy=0405) [place] [address] RAD, CHEST, 1 VIEW, NON [id number] 08:07:00Reason for exam:->sobShould this be performed at [...] Verified Date/ Time: 07/04/2019 08:07:46 Reading Location: [address] Ortho Consult Reading Room 08: 07 AMPOCT-GLUCOSE [id number] 08:05:00 Test Item Value Reference Range Comments POC-GLUCOSE METER (BEAKER) 148 mg/dL 70-[address] [facility] [address] [facility] (test tcsf=6565) [facility] [address] CBC W/PLT COUNT & AUTO [id number] 07:59:00 Test Item Value Reference Range Comments WHITE BLOOD CELL COUNT (BEAKER) (test ttru=844) 14.3 K/ L 3.5-10.5 RED BLOOD CELL COUNT (BEAKER) (test ugoo=664) 3.65 M/ L 3.93-5.22 HEMOGLOBIN (BEAKER) (test vpsp=765) 10.7 GM/DL 11.2-15.7 HEMATOCRIT (BEAKER) (test faly=028) 32.7 % 34.1-44.9 MEAN CORPUSCULAR VOLUME (BEAKER) (test zusq=615) 89.6 fL 79.4-94.8 MEAN CORPUSCULAR HEMOGLOBIN (BEAKER) (test 29.3 pg 25.6-32.2 vwob=606) MEAN CORPUSCULAR HEMOGLOBIN CONC (BEAKER) (test 32.7 GM/DL 32.2-35.5 pqdq=335) RED CELL DISTRIBUTION WIDTH (BEAKER) (test 14.6 % 11.7-14.4 evrz=234) PLATELET COUNT (BEAKER) (test laos=949) 217 K/CU MM 150-450 MEAN PLATELET VOLUME (BEAKER) (test egpy=729) 12.2 fL 9.4-12.3 NUCLEATED RED BLOOD CELLS (BEAKER) (test 0 /100 WBC 0-0 jvxq=791) (CELLAVISION MANUAL DIFF)2019-07-04 07:59:00 Test Item Value Reference Range Comments NEUTROPHILS - REL (CELLAVISION)(BEAKER) (test 88 % mbcd=6651) LYMPHOCYTES - REL (CELLAVISION)(BEAKER) (test 6 % pteb=0531) MONOCYTES - REL (CELLAVISION)(BEAKER) (test 5 % ucux=7948) EOSINOPHILS - REL (CELLAVISION)(BEAKER) (test 1 % aafv=3993) NEUTROPHILS - ABS (CELLAVISION)(BEAKER) (test 12.58 K/ul 1.56-6.13 hbab=9549) LYMPHOCYTES - ABS (CELLAVISION)(BEAKER) (test 0.86 K/ul 1.18-3.74 ruaq=1441) MONOCYTES - ABS (CELLAVISION)(BEAKER) (test 0.72 K/uL 0.24-0.36 amgf=9400) EOSINOPHILS - ABS (CELLAVISION)(BEAKER) (test 0.14 K/uL 0.04-0.36 fhpn=5848) TOTAL COUNTED (BEAKER) (test czbf=5832) 100 RBC MORPHOLOGY (BEAKER) (test afcn=282) Normal WBC MORPHOLOGY (BEAKER) (test nrlu=405) Normal PLT MORPHOLOGY (BEAKER) (test iycb=496) Normal ARTIFACT (CELLAVISION)(BEAKER) (test sija=1754) Present PLATELET CONCENTRATION (CELLAVISION)(BEAKER) Adequate (test bygn=2314) Received comment: User comments: Slide comments:BASIC METABOLIC [id number] 07:39:00 Test Item Value Reference Range Comments SODIUM (BEAKER) (test 133 meq/L 136-145 ueoj=098) POTASSIUM (BEAKER) (test 3.8 meq/L 3.5-5.1 fzjt=455) CHLORIDE (BEAKER) (test 95 meq/L 98-107 gfnc=602) CO2 (BEAKER) (test 25 meq/L 22-29 akec=815) BLOOD UREA NITROGEN 93 mg/dL 7-21 (BEAKER) (test rkzx=672) CREATININE (BEAKER) (test 2.54 mg/dL 0.57-1.25 ryvs=965) GLUCOSE RANDOM (BEAKER) 150 mg/dL 70-105 (test anbd=741) CALCIUM (BEAKER) (test 9.0 mg/dL 8.4-10.2 nhin=382) EGFR (BEAKER) (test 19 mL/min/1.73 sq m ESTIMATED GFR IS NOT bjul=7798) ACCURATE CREATININE CLEARANCE IN PREDICTING GLOMERULAR FILTRATION RATE. ESTIMATED GFR IS NOT APPLICABLE FOR DIALYSIS PATIENTS. [id number] 07:33:00 Test Item Value Reference Range Comments MAGNESIUM (BEAKER) (test frkf=020) 2.2 mg/dL 1.6-2.6 POCT-GLUCOSE [id number] 21:21:00 Test Item Value Reference Range Comments POC-GLUCOSE METER (BEAKER) 161 mg/dL 70-110 TESTED AT [address] (test gkyw=5328) [place] [id number] POCT-GLUCOSE [id number] 12:55:00 Test Item Value Reference Range Comments POC-GLUCOSE METER (BEAKER) 211 mg/dL 70-110 TESTED AT [address] (test nmmm=2397) [facility] [address] CBC W/PLT COUNT & AUTO [id number] 09:36:00 Test Item Value Reference Range Comments WHITE BLOOD CELL COUNT (BEAKER) (test vzob=731) 12.7 K/ L 3.5-10.5 RED BLOOD CELL COUNT (BEAKER) (test yqrx=947) 3.81 M/ L 3.93-5.22 HEMOGLOBIN (BEAKER) (test pxev=984) 11.3 GM/DL 11.2-15.7 HEMATOCRIT (BEAKER) (test gmsa=784) 33.9 % 34.1-44.9 MEAN CORPUSCULAR VOLUME (BEAKER) (test amgy=644) 89.0 fL 79.4-94.8 MEAN CORPUSCULAR HEMOGLOBIN (BEAKER) (test 29.7 pg 25.6-32.2 zuxj=879) MEAN CORPUSCULAR HEMOGLOBIN CONC (BEAKER) (test 33.3 GM/DL 32.2-35.5 cdua=504) RED CELL DISTRIBUTION WIDTH (BEAKER) (test 14.2 % 11.7-14.4 ervp=324) PLATELET COUNT (BEAKER) (test fbeb=181) 213 K/CU MM 150-450 MEAN PLATELET VOLUME (BEAKER) (test zflt=100) 11.9 fL 9.4-12.3 NUCLEATED RED BLOOD CELLS (BEAKER) (test 0 /100 WBC 0-0 ahfk=830) (CELLAVISION MANUAL DIFF)2019-07-03 09:36:00 Test Item Value Reference Range Comments NEUTROPHILS - REL (CELLAVISION)(BEAKER) (test 80 % wnvi=9782) LYMPHOCYTES - REL (CELLAVISION)(BEAKER) (test 10 % hvkr=6885) MONOCYTES - REL (CELLAVISION)(BEAKER) (test 7 % nglu=6169) EOSINOPHILS - REL (CELLAVISION)(BEAKER) (test 1 % ejao=6567) BANDS - REL (CELLAVISION)(BEAKER) (test 2 % 0-10 zdyd=2761) NEUTROPHILS - ABS (CELLAVISION)(BEAKER) (test 10.16 K/ul 1.56-6.13 sngi=9187) LYMPHOCYTES - ABS (CELLAVISION)(BEAKER) (test 1.27 K/ul 1.18-3.74 ufnl=2020) MONOCYTES - ABS (CELLAVISION)(BEAKER) (test 0.89 K/uL 0.24-0.36 gjed=0653) EOSINOPHILS - ABS (CELLAVISION)(BEAKER) (test 0.13 K/uL 0.04-0.36 xhub=6584) BANDS - ABS (CELLAVISION)(BEAKER) (test 0.25 K/uL 0.00-0.80 hjoy=2044) TOTAL COUNTED (BEAKER) (test rrep=6817) 100 WBC MORPHOLOGY (BEAKER) (test tfbb=283) Normal GIANT PLATELETS (BEAKER) (test iaba=411) Present LARGE PLT(BEAKER) (test ykfz=0170) Present POLYCHROMATOPHILLIC RBCS(BEAKER) (test bawl=175) 1+ few HYPOCHROMIA (BEAKER) (test bemb=622) 1+ few ANISOCYTOSIS (BEAKER) (test cqkk=770) 1+ few MACROCYTES (BEAKER) (test aolk=955) 1+ few POIKILOCYTES (BEAKER) (test zcvh=408) 1+ few OVALOCYTES (BEAKER) (test ujie=374) 1+ few ARTIFACT (CELLAVISION)(BEAKER) (test rosm=0385) Present PLATELET CONCENTRATION (CELLAVISION)(BEAKER) Adequate (test iaxm=7551) Received comment: User comments: Slide comments:POCT-GLUCOSE [id number] 08: 50:00 Test Item Value Reference Range Comments POC-GLUCOSE METER (BEAKER) 150 mg/dL 70-[address] [facility] [address] [facility] (test rjef=0634) [facility] [address] POCT-GLUCOSE [id number] 08:49:00 Test Item Value Reference Range Comments POC-GLUCOSE METER (BEAKER) 180 mg/dL 70-110 TESTED AT [place] [id number] [facility] (test uagh=4414) [facility] [address] RAD, CHEST, 1 VIEW, NON [id number] 07:08:00Reason for exam:->sobShould this be performed at [...] MDReport Verified Date/Time: 07/03/2019 07:08:54 Reading Location: [address] Reading Room BASIC METABOLIC [id number] 05:46:00 Test Item Value Reference Range Comments SODIUM (BEAKER) (test 133 meq/L 136-145 kdbw=076) POTASSIUM (BEAKER) (test 3.4 meq/L 3.5-5.1 whlh=380) CHLORIDE (BEAKER) (test 93 meq/L 98-107 kfyz=084) CO2 (BEAKER) (test 29 meq/L 22-29 ptus=294) BLOOD UREA NITROGEN 87 mg/dL 7-21 (BEAKER) (test cxoy=082) CREATININE (BEAKER) (test 2.37 mg/dL 0.57-1.25 yney=690) GLUCOSE RANDOM (BEAKER) 146 mg/dL 70-105 (test kspy=522) CALCIUM (BEAKER) (test 9.1 mg/dL 8.4-10.2 fxsa=134) EGFR (BEAKER) (test 20 mL/min/1.73 sq m ESTIMATED GFR IS NOT ajsa=7826) ACCURATE CREATININE CLEARANCE IN PREDICTING GLOMERULAR FILTRATION RATE. ESTIMATED GFR IS NOT APPLICABLE FOR DIALYSIS PATIENTS. [id number] 05:37:00 Test Item Value Reference Range Comments MAGNESIUM (BEAKER) (test nevc=378) 2.2 mg/dL 1.6-2.6 BLOOD GAS, [id number] 05:26:00 Test Item Value Reference Range Comments PH VENOUS (BEAKER) (test jghb=364) 7.46 7.32-7.42 PCO2 VENOUS (BEAKER) (test pmra=773) 43 mmHg 41-51 PO2 VENOUS (BEAKER) (test besp=814) 48 mmHg 25-40 O2 SATURATION VENOUS (BEAKER) (test wste=628) 86.0 % 40.0-70.0 HCO3 VENOUS (BEAKER) (test nnut=615) 30 mmol/L 21-29 BASE EXCESS VENOUS (BEAKER) (test uxrq=641) 5.2 mmol/L -2.0-3.0 PATIENT TEMPERATURE (BEAKER) (test ubxs=5393) 37.0 C FIO2 (BEAKER) (test whhy=4268) 100.0 % [id number] 18:08:00 Test Item Value Reference Range Comments MAGNESIUM (BEAKER) (test slwd=466) 2.5 mg/dL 1.6-2.6 [id number] 18:08:00 Test Item Value Reference Range Comments SODIUM (BEAKER) (test quhp=634) 133 meq/L 136-145 POTASSIUM (BEAKER) (test amih=582) 3.6 meq/L 3.5-5.1 CHLORIDE (BEAKER) (test cmyh=540) 95 meq/L 98-107 CO2 (BEAKER) (test purp=700) 27 meq/L 22-29 POCT-GLUCOSE [id number] 17:57:00 Test Item Value Reference Range Comments POC-GLUCOSE METER (BEAKER) 211 mg/dL 70-110 TESTED AT [address] (test qozz=4003) [facility] [address] POCT-GLUCOSE [id number] 14:09:00 Test Item Value Reference Range Comments POC-GLUCOSE METER (BEAKER) 220 mg/dL 70-[address] [facility] [address] [facility] (test vfzd=5457) [facility] [address] POCT-GLUCOSE [id number] 10:10:00 Test Item Value Reference Range Comments POC-GLUCOSE METER (BEAKER) 184 mg/dL 70-110 TESTED AT [address] (test htxg=2521) [facility] [address] RAD, CHEST, 1 VIEW, NON [id number] 07:25:00Reason for exam:->sobShould this be performed at [...] MDReport Verified Date/Time: 07/02/2019 07:25:25 Reading Location: [address] Neuro Reading Room CBC W/PLT COUNT & AUTO [id number] 06:58:00 Test Item Value Reference Range Comments WHITE BLOOD CELL COUNT (BEAKER) (test cnak=246) 8.9 K/ L 3.5-10.5 RED BLOOD CELL COUNT (BEAKER) (test dyou=599) 3.69 M/ L 3.93-5.22 HEMOGLOBIN (BEAKER) (test cgkr=952) 10.9 GM/DL 11.2-15.7 HEMATOCRIT (BEAKER) (test ewza=114) 32.8 % 34.1-44.9 MEAN CORPUSCULAR VOLUME (BEAKER) (test gygb=733) 88.9 fL 79.4-94.8 MEAN CORPUSCULAR HEMOGLOBIN (BEAKER) (test 29.5 pg 25.6-32.2 ppuj=022) MEAN CORPUSCULAR HEMOGLOBIN CONC (BEAKER) (test 33.2 GM/DL 32.2-35.5 eles=938) RED CELL DISTRIBUTION WIDTH (BEAKER) (test 14.4 % 11.7-14.4 bvjb=418) PLATELET COUNT (BEAKER) (test qcwn=449) 165 K/CU MM 150-450 MEAN PLATELET VOLUME (BEAKER) (test vmzg=143) 12.3 fL 9.4-12.3 NUCLEATED RED BLOOD CELLS (BEAKER) (test 0 /100 WBC 0-0 avyb=213) (CELLAVISION MANUAL DIFF)2019-07-02 06:58:00 Test Item Value Reference Range Comments NEUTROPHILS - REL (CELLAVISION)(BEAKER) (test 74 % xisc=8292) LYMPHOCYTES - REL (CELLAVISION)(BEAKER) (test 6 % wofi=2339) MONOCYTES - REL (CELLAVISION)(BEAKER) (test 11 % rsql=9680) BANDS - REL (CELLAVISION)(BEAKER) (test ratx=6215) 8 % 0-10 ATYPICAL LYMPHOCYTES - REL (CELLAVISION)(BEAKER) 1 % 0-0 (test jwpx=4275) NEUTROPHILS - ABS (CELLAVISION)(BEAKER) (test 6.59 K/ul 1.56-6.13 bsll=9476) LYMPHOCYTES - ABS (CELLAVISION)(BEAKER) (test 0.53 K/ul 1.18-3.74 eiew=6042) MONOCYTES - ABS (CELLAVISION)(BEAKER) (test 0.98 K/uL 0.24-0.36 tlyg=4086) BANDS - ABS (CELLAVISION)(BEAKER) (test dwmp=8401) 0.71 K/uL 0.00-0.80 ATYPICAL LYMPHOCYTES - ABS (CELLAVISION)(BEAKER) 0.09 K/uL 0.00-0.00 (test hxft=7505) TOTAL COUNTED (BEAKER) (test emni=7192) 100 RBC MORPHOLOGY (BEAKER) (test izcp=678) Normal WBC MORPHOLOGY (BEAKER) (test mzeb=263) Normal PLT MORPHOLOGY (BEAKER) (test qpil=666) Normal ARTIFACT (CELLAVISION)(BEAKER) (test wuvc=4506) Present PLATELET CONCENTRATION (CELLAVISION)(BEAKER) (test Adequate bmfx=4262) Received comment: User comments: Slide comments:POCT-GLUCOSE [id number] 05: 51:00 Test Item Value Reference Range Comments POC-GLUCOSE METER (BEAKER) 219 mg/dL 70-[address] [facility] [address] (test csiv=5395) [facility] [address] BLOOD GAS, [id number] 04:53:00 Test Item Value Reference Range Comments PH VENOUS (BEAKER) (test qfim=241) 7.42 7.32-7.42 PCO2 VENOUS (BEAKER) (test xriw=645) 52 mmHg 41-51 PO2 VENOUS (BEAKER) (test bfex=350) 48 mmHg 25-40 O2 SATURATION VENOUS (BEAKER) (test heqs=771) 84.4 % 40.0-70.0 HCO3 VENOUS (BEAKER) (test aafw=754) 33 mmol/L 21-29 BASE EXCESS VENOUS (BEAKER) (test jzau=055) 6.8 mmol/L -2.0-3.0 PATIENT TEMPERATURE (BEAKER) (test dcpq=5838) 36.5 C FIO2 (BEAKER) (test aytd=3020) 50.0 % [id number] 04:41:00 Test Item Value Reference Range Comments PHOSPHORUS (BEAKER) (test jdxc=932) 3.2 mg/dL 2.3-4.7 [id number] 04:41:00 Test Item Value Reference Range Comments MAGNESIUM (BEAKER) (test exxi=831) 2.0 mg/dL 1.6-2.6 COMPREHENSIVE METABOLIC [id number] 04:41:00 Test Item Value Reference Range Comments TOTAL PROTEIN (BEAKER) (test 6.2 gm/dL 6.0-8.3 hofh=692) ALBUMIN (BEAKER) (test 3.0 g/dL 3.5-5.0 rqlk=2860) ALKALINE PHOSPHATASE (BEAKER) 55 U/L 40-150 (test ddyy=567) BILIRUBIN TOTAL (BEAKER) 0.5 mg/dL 0.2-1.2 (test qjkt=193) SODIUM (BEAKER) (test 134 meq/L 136-145 lspv=029) POTASSIUM (BEAKER) (test 3.3 meq/L 3.5-5.1 woso=304) CHLORIDE (BEAKER) (test 93 meq/L 98-107 uokn=518) CO2 (BEAKER) (test dddh=009) 29 meq/L 22-29 BLOOD UREA NITROGEN (BEAKER) 85 mg/dL 7-21 (test kkdw=396) CREATININE (BEAKER) (test 2.57 mg/dL 0.57-1.25 vcyk=441) GLUCOSE RANDOM (BEAKER) (test 214 mg/dL 70-105 iaij=384) CALCIUM (BEAKER) (test 9.0 mg/dL 8.4-10.2 byhj=544) AST (SGOT) (BEAKER) (test 12 U/L 5-34 swae=980) ALT (SGPT) (BEAKER) (test 9 U/L 6-55 rtzq=247) EGFR (BEAKER) (test INSUFFICIENT CLINICAL DATA TO iqry=8662) CALCULATE ESTIMATED GFR. [id number] 17:18:00 Test Item Value Reference Range Comments POTASSIUM (BEAKER) (test maho=817) 3.7 meq/L 3.5-5.1 [id number] 17:18:00 Test Item Value Reference Range Comments MAGNESIUM (BEAKER) (test miht=754) 2.1 mg/dL 1.6-2.6 POCT-GLUCOSE [id number] 16:43:00 Test Item Value Reference Range Comments POC-GLUCOSE METER (BEAKER) 236 mg/dL 70-[address] [facility] [address] (test oqdu=9859) [place] [id number] POCT-GLUCOSE [id number] 12:53:00 Test Item Value Reference Range Comments POC-GLUCOSE METER (BEAKER) 210 mg/dL 70-110 TESTED AT [address] (test jctv=6261) [facility] [address] RAD, CHEST, 1 VIEW, NON [id number] 11:06:00Reason for exam:->sobShould this be performed at the bedside?->YesFINAL REPORT Comparison: 06/30/2019 TECHNIQUE: Single view of the chest FINDINGS: Bibasilar densities are stable. Lungs otherwise grossly clear. Cardiac silhouette is enlarged. Left-sided central line is stable. Signed: Wali Velazco MDReport Verified Date/Time: 07/01/2019 11:06:56 Reading Location: [facility] Radiology Reading Room Electronically signed by: WALI VELAZCO M.D. on07/01/2019 11: 06 AMCBC W/PLT COUNT & AUTO [id number] 09:49:00 Test Item Value Reference Range Comments WHITE BLOOD CELL COUNT (BEAKER) (test cvvx=663) 8.1 K/ L 3.5-10.5 RED BLOOD CELL COUNT (BEAKER) (test bahd=324) 3.85 M/ L 3.93-5.22 HEMOGLOBIN (BEAKER) (test lyhy=117) 11.6 GM/DL 11.2-15.7 HEMATOCRIT (BEAKER) (test khgd=219) 35.0 % 34.1-44.9 MEAN CORPUSCULAR VOLUME (BEAKER) (test lwmh=381) 90.9 fL 79.4-94.8 MEAN CORPUSCULAR HEMOGLOBIN (BEAKER) (test 30.1 pg 25.6-32.2 jrwz=663) MEAN CORPUSCULAR HEMOGLOBIN CONC (BEAKER) (test 33.1 GM/DL 32.2-35.5 cinn=752) RED CELL DISTRIBUTION WIDTH (BEAKER) (test 14.6 % 11.7-14.4 lbpx=762) PLATELET COUNT (BEAKER) (test ntof=013) 143 K/CU MM 150-450 MEAN PLATELET VOLUME (BEAKER) (test dfuj=872) 12.2 fL 9.4-12.3 NUCLEATED RED BLOOD CELLS (BEAKER) (test 0 /100 WBC 0-0 onpk=091) (CELLAVISION MANUAL DIFF)2019-07-01 09:49:00 Test Item Value Reference Range Comments NEUTROPHILS - REL (CELLAVISION)(BEAKER) (test 82 % delv=0810) LYMPHOCYTES - REL (CELLAVISION)(BEAKER) (test 5 % chjq=9931) MONOCYTES - REL (CELLAVISION)(BEAKER) (test 10 % jppp=4900) BANDS - REL (CELLAVISION)(BEAKER) (test lakr=4440) 1 % 0-10 ATYPICAL LYMPHOCYTES - REL (CELLAVISION)(BEAKER) 2 % 0-0 (test ydls=0137) NEUTROPHILS - ABS (CELLAVISION)(BEAKER) (test 6.64 K/ul 1.56-6.13 ltwi=7014) LYMPHOCYTES - ABS (CELLAVISION)(BEAKER) (test 0.41 K/ul 1.18-3.74 ncfd=5648) MONOCYTES - ABS (CELLAVISION)(BEAKER) (test 0.81 K/uL 0.24-0.36 ltsq=7131) BANDS - ABS (CELLAVISION)(BEAKER) (test dfxh=5540) 0.08 K/uL 0.00-0.80 ATYPICAL LYMPHOCYTES - ABS (CELLAVISION)(BEAKER) 0.16 K/uL 0.00-0.00 (test aatf=8457) TOTAL COUNTED (BEAKER) (test omcq=7734) 100 RBC MORPHOLOGY (BEAKER) (test nlfz=533) Normal SMUDGE CELLS (BEAKER) (test ssmc=4566) Present GIANT PLATELETS (BEAKER) (test phap=160) Present TOXIC GRANULATION (BEAKER) (test tyqf=089) Present PLATELET CONCENTRATION (CELLAVISION)(BEAKER) (test Decreased fnlh=7357) Received comment: User comments: Slide comments:COMPREHENSIVE METABOLIC [id number] 08:39:00 Test Item Value Reference Range Comments TOTAL PROTEIN (BEAKER) (test 6.3 gm/dL 6.0-8.3 knus=184) ALBUMIN (BEAKER) (test 3.0 g/dL 3.5-5.0 rfhd=3543) ALKALINE PHOSPHATASE (BEAKER) 58 U/L 40-150 (test ksnx=975) BILIRUBIN TOTAL (BEAKER) 0.5 mg/dL 0.2-1.2 (test rmru=097) SODIUM (BEAKER) (test 134 meq/L 136-145 qnrl=216) POTASSIUM (BEAKER) (test 3.9 meq/L 3.5-5.1 mfhj=323) CHLORIDE (BEAKER) (test 95 meq/L 98-107 whpb=099) CO2 (BEAKER) (test pdim=456) 26 meq/L 22-29 BLOOD UREA NITROGEN (BEAKER) 83 mg/dL 7-21 (test ymxv=658) CREATININE (BEAKER) (test 2.75 mg/dL 0.57-1.25 xauw=450) GLUCOSE RANDOM (BEAKER) (test 161 mg/dL 70-105 lgao=817) CALCIUM (BEAKER) (test 8.9 mg/dL 8.4-10.2 bzup=978) AST (SGOT) (BEAKER) (test 18 U/L 5-34 iatk=745) ALT (SGPT) (BEAKER) (test 10 U/L 6-55 dndw=009) EGFR (BEAKER) (test INSUFFICIENT CLINICAL DATA TO ehpk=9302) CALCULATE ESTIMATED GFR. [id number] 08:30:00 Test Item Value Reference Range Comments PHOSPHORUS (BEAKER) (test idlh=268) 5.3 mg/dL 2.3-4.7 [id number] 08:30:00 Test Item Value Reference Range Comments MAGNESIUM (BEAKER) (test abnh=933) 2.1 mg/dL 1.6-2.6 POCT-GLUCOSE [id number] 08:15:00 Test Item Value Reference Range Comments POC-GLUCOSE METER (BEAKER) 167 mg/dL 70-110 TESTED AT [address] (test rzax=3091) [facility] [address] BLOOD GAS, [id number] 05:55:00 Test Item Value Reference Range Comments PH VENOUS (BEAKER) (test pqdj=101) 7.35 7.32-7.42 PCO2 VENOUS (BEAKER) (test ppkh=954) 54 mmHg 41-51 PO2 VENOUS (BEAKER) (test blax=955) 47 mmHg 25-40 O2 SATURATION VENOUS (BEAKER) (test jeht=388) 80.3 % 40.0-70.0 HCO3 VENOUS (BEAKER) (test ejzx=950) 29 mmol/L 21-29 BASE EXCESS VENOUS (BEAKER) (test awlu=752) 2.5 mmol/L -2.0-3.0 PATIENT TEMPERATURE (BEAKER) (test bnkm=7460) 37.0 C FIO2 (BEAKER) (test aqlc=9974) 100.0 % CALCIUM, [id number] 05:50:00 Test Item Value Reference Range Comments CALCIUM IONIZED (BEAKER) (test efui=408) 1.12 mmol/L 1.12-1.27 PH, BLOOD (BEAKER) (test uglo=0539) 7.35 BASIC METABOLIC [id number] 01:53:00 Test Item Value Reference Range Comments SODIUM (BEAKER) (test 133 meq/L 136-145 xxoe=826) POTASSIUM (BEAKER) (test 3.6 meq/L 3.5-5.1 kord=198) CHLORIDE (BEAKER) (test 95 meq/L 98-107 fmhr=246) CO2 (BEAKER) (test iwlo=236) 24 meq/L 22-29 BLOOD UREA NITROGEN (BEAKER) 77 mg/dL 7-21 (test acif=869) CREATININE (BEAKER) (test 2.79 mg/dL 0.57-1.25 uylj=457) GLUCOSE RANDOM (BEAKER) 211 mg/dL 70-105 (test qdxj=337) CALCIUM (BEAKER) (test 8.8 mg/dL 8.4-10.2 aiyr=083) EGFR (BEAKER) (test INSUFFICIENT CLINICAL DATA TO hozn=2800) CALCULATE ESTIMATED GFR. PUL PERF [facility], [facility], [id number] 23:32:00Reason for exam:-> dyspneaFINAL REPORT PROCEDURE: V/Q LUNG SCAN CPT CODE: 31896 INDICATION: exertional dyspnea PROTOCOL: 9.3 mCi of [...] MANDO HERNÁNDEZ MD on 2018 11:32 PMPOCT-GLUCOSE [id number] 22:19:00 Test Item Value Reference Range Comments POC-GLUCOSE METER (BEAKER) 218 mg/dL 70-110 TESTED AT [address] (test hsiv=6505) [facility] [address] CT, CHEST, WITHOUT [id number] 21:46:00Reason for exam:->sobAnesthesia :->NoneFINAL REPORT EXAM: CT [...] pneumonia and/or subsegmental atelectasis. Signed: Gil Hooper [facility] Verified Date/Time: 21:46:13 Electronically signed by: GIL HOOPER MD on 10/2018 09:46 [facility] [id number] 13:40:00 Test Item Value Reference Range Comments SODIUM (BEAKER) (test 132 meq/L 136-145 ydcq=896) POTASSIUM (BEAKER) (test 3.6 meq/L 3.5-5.1 parh=895) CHLORIDE (BEAKER) (test 97 meq/L 98-107 ftfj=058) CO2 (BEAKER) (test vtaj=788) 26 meq/L 22-29 BLOOD UREA NITROGEN (BEAKER) 75 mg/dL 7-21 (test nrki=369) CREATININE (BEAKER) (test 2.76 mg/dL 0.57-1.25 wsdz=431) GLUCOSE RANDOM (BEAKER) 173 mg/dL 70-105 (test giuq=271) CALCIUM (BEAKER) (test 8.4 mg/dL 8.4-10.2 vojp=507) EGFR (BEAKER) (test INSUFFICIENT CLINICAL DATA TO pqbb=7705) CALCULATE ESTIMATED GFR. POCT-GLUCOSE [id number] 11:53:00 Test Item Value Reference Range Comments POC-GLUCOSE METER (BEAKER) 135 mg/dL 70-[address] [facility] [address] [facility] (test kvpt=2543) [facility] [address] BLOOD GAS, [id number] 11:08:00 Test Item Value Reference Range Comments PH VENOUS (BEAKER) (test ixvv=931) 7.34 7.32-7.42 PCO2 VENOUS (BEAKER) (test wlax=479) 50 mmHg 41-51 PO2 VENOUS (BEAKER) (test qyhi=697) 49 mmHg 25-40 O2 SATURATION VENOUS (BEAKER) (test vozb=360) 82.0 % 40.0-70.0 HCO3 VENOUS (BEAKER) (test dsxg=176) 27 mmol/L 21-29 BASE EXCESS VENOUS (BEAKER) (test snty=591) 0.5 mmol/L -2.0-3.0 PATIENT TEMPERATURE (BEAKER) (test ahwl=3203) 37.0 C FIO2 (BEAKER) (test bunr=1975) 100.0 % CBC W/PLT COUNT & AUTO [id number] 07:52:00 Test Item Value Reference Range Comments WHITE BLOOD CELL COUNT (BEAKER) 9.9 K/ L 3.5-10.5 (test moab=711) RED BLOOD CELL COUNT (BEAKER) 3.94 M/ L 3.93-5.22 (test fcqp=964) HEMOGLOBIN (BEAKER) (test 11.8 GM/DL 11.2-15.7 ieff=289) HEMATOCRIT (BEAKER) (test 35.7 % 34.1-44.9 bnrc=569) MEAN CORPUSCULAR VOLUME 90.6 fL 79.4-94.8 (BEAKER) (test ahtd=249) MEAN CORPUSCULAR HEMOGLOBIN 29.9 pg 25.6-32.2 (BEAKER) (test hios=869) MEAN CORPUSCULAR HEMOGLOBIN 33.1 GM/DL 32.2-35.5 CONC (BEAKER) (test unpx=983) RED CELL DISTRIBUTION WIDTH 14.7 % 11.7-14.4 (BEAKER) (test aahu=921) PLATELET COUNT (BEAKER) (test 128 K/CU MM 150-450 wfky=242) MEAN PLATELET VOLUME (BEAKER) 11.6 fL 9.4-12.3 MPV-Approximately 20% (test ccct=734) positive bias due to method change. NUCLEATED RED BLOOD CELLS 0 /100 WBC 0-0 (BEAKER) (test sjre=947) (CELLAVISION MANUAL DIFF)2019-06-30 07:52:00 Test Item Value Reference Range Comments NEUTROPHILS - REL (CELLAVISION)(BEAKER) (test 81 % zktg=9665) LYMPHOCYTES - REL (CELLAVISION)(BEAKER) (test 9 % mvzm=3534) MONOCYTES - REL (CELLAVISION)(BEAKER) (test 4 % tfja=6994) BANDS - REL (CELLAVISION)(BEAKER) (test rdzl=4860) 5 % 0-10 NEUTROPHILS - ABS (CELLAVISION)(BEAKER) (test 8.02 K/ul 1.56-6.13 iive=5130) LYMPHOCYTES - ABS (CELLAVISION)(BEAKER) (test 0.89 K/ul 1.18-3.74 ukww=4254) MONOCYTES - ABS (CELLAVISION)(BEAKER) (test 0.40 K/uL 0.24-0.36 uvnv=8055) BANDS - ABS (CELLAVISION)(BEAKER) (test bxun=3712) 0.50 K/uL 0.00-0.80 TOTAL COUNTED (BEAKER) (test pneu=5584) 100 PLT MORPHOLOGY (BEAKER) (test ciiu=898) Normal DOHLE BODIES (BEAKER) (test irmk=191) Present TOXIC GRANULATION (BEAKER) (test tlvg=187) Present POLYCHROMATOPHILLIC RBCS(BEAKER) (test mnnz=653) 1+ few ANISOCYTOSIS (BEAKER) (test guoh=443) 1+ few POIKILOCYTES (BEAKER) (test ijfm=295) 1+ few JOSSY CELLS (BEAKER) (test aguk=961) 1+ few ARTIFACT (CELLAVISION)(BEAKER) (test qhcq=9006) Present PLATELET CONCENTRATION (CELLAVISION)(BEAKER) (test Decreased gpak=9713) Received comment: User comments: Slide comments:RAD, ABDOMEN/KUB, 1 VIEW [id number] 07:41:00Reason for exam:->ileusShould this be performed at [...] MDReport Verified Date/Time: 06/30/2019 07:41:54 Reading Location: [address] Neuro Reading Room RAD, CHEST, 1 VIEW, NON [id number] 07:39:00Reason for exam:->sobShould this be performed at [...] MDReport Verified Date/Time: 06/30/2019 07:39:31 Reading Location: [facility] C013V Neuro Reading Room COMPREHENSIVE METABOLIC [id number] 03:49:00 Test Item Value Reference Range Comments TOTAL PROTEIN (BEAKER) (test 6.1 gm/dL 6.0-8.3 rkow=253) ALBUMIN (BEAKER) (test 3.0 g/dL 3.5-5.0 aqxf=2063) ALKALINE PHOSPHATASE (BEAKER) 58 U/L 40-150 (test llnr=028) BILIRUBIN TOTAL (BEAKER) 0.4 mg/dL 0.2-1.2 (test lsul=619) SODIUM (BEAKER) (test 136 meq/L 136-145 gjrp=222) POTASSIUM (BEAKER) (test 3.8 meq/L 3.5-5.1 apkd=495) CHLORIDE (BEAKER) (test 98 meq/L 98-107 wncj=165) CO2 (BEAKER) (test ckqb=248) 26 meq/L 22-29 BLOOD UREA NITROGEN (BEAKER) 77 mg/dL 7-21 (test qbsh=533) CREATININE (BEAKER) (test 3.03 mg/dL 0.57-1.25 nhvb=344) GLUCOSE RANDOM (BEAKER) (test 173 mg/dL 70-105 jmaf=787) CALCIUM (BEAKER) (test 9.0 mg/dL 8.4-10.2 qrim=201) AST (SGOT) (BEAKER) (test 19 U/L 5-34 tqdx=627) ALT (SGPT) (BEAKER) (test 13 U/L 6-55 vusr=495) EGFR (BEAKER) (test INSUFFICIENT CLINICAL DATA TO dibc=4626) CALCULATE ESTIMATED GFR. [id number] 03:42:00 Test Item Value Reference Range Comments PHOSPHORUS (BEAKER) (test fduv=962) 5.8 mg/dL 2.3-4.7 [id number] 03:42:00 Test Item Value Reference Range Comments MAGNESIUM (BEAKER) (test acrk=165) 2.3 mg/dL 1.6-2.6 CALCIUM, [id number] 03:31:00 Test Item Value Reference Range Comments CALCIUM IONIZED (BEAKER) (test lmsm=985) 1.09 mmol/L 1.12-1.27 PH, BLOOD (BEAKER) (test dmuo=0129) 7.31 BASIC METABOLIC [id number] 20:52:00 Test Item Value Reference Range Comments SODIUM (BEAKER) (test 134 meq/L 136-145 njko=196) POTASSIUM (BEAKER) (test 3.9 meq/L 3.5-5.1 Specimen moderately hemolyzed eaau=032) CHLORIDE (BEAKER) (test 99 meq/L 98-107 push=100) CO2 (BEAKER) (test wjed=825) 23 meq/L 22-29 BLOOD UREA NITROGEN (BEAKER) 74 mg/dL 7-21 (test buuc=726) CREATININE (BEAKER) (test 3.10 mg/dL 0.57-1.25 Specimen moderately hemolyzed kwko=123) GLUCOSE RANDOM (BEAKER) 204 mg/dL 70-105 (test qqfe=263) CALCIUM (BEAKER) (test 8.5 mg/dL 8.4-10.2 cbpl=606) EGFR (BEAKER) (test INSUFFICIENT CLINICAL DATA TO ufzv=1015) CALCULATE ESTIMATED GFR. [id number] 20:32:00 Test Item Value Reference Range Comments ACTIVATED CLOTTING TIME 120 sec Reference Range: 74-137 (BEAKER) (test yrva=405) seconds, Baseline/TESTED AT [place] [address] [id number] 18:28:00 Test Item Value Reference Range Comments ACTIVATED CLOTTING TIME 136 sec Reference Range: 74-137 (BEAKER) (test mbnz=204) seconds, Baseline/TESTED AT [place] [address] POCT-GLUCOSE [id number] 17:26:00 Test Item Value Reference Range Comments POC-GLUCOSE METER (BEAKER) 189 mg/dL 70-110 TESTED AT [address] (test plch=7955) [place] [address] [id number] 17:13:00 Test Item Value Reference Range Comments ACTIVATED CLOTTING TIME 147 sec Reference Range: 74-137 (BEAKER) (test gfpc=178) seconds, Baseline/TESTED AT [place] [address] [id number] 16:50:00 Test Item Value Reference Range Comments ACTIVATED CLOTTING TIME 158 sec Reference Range: 74-137 (BEAKER) (test epnb=554) seconds, Baseline/TESTED AT [place] [address] BASIC METABOLIC [id number] 15:22:00 Test Item Value Reference Range Comments SODIUM (BEAKER) (test 135 meq/L 136-145 dgsy=168) POTASSIUM (BEAKER) (test 3.9 meq/L 3.5-5.1 ndyq=722) CHLORIDE (BEAKER) (test 99 meq/L 98-107 sjbi=891) CO2 (BEAKER) (test vvup=875) 24 meq/L 22-29 BLOOD UREA NITROGEN (BEAKER) 71 mg/dL 7-21 (test xapw=695) CREATININE (BEAKER) (test 2.98 mg/dL 0.57-1.25 mbgc=806) GLUCOSE RANDOM (BEAKER) 179 mg/dL 70-105 (test hijd=341) CALCIUM (BEAKER) (test 8.8 mg/dL 8.4-10.2 somf=190) EGFR (BEAKER) (test INSUFFICIENT CLINICAL DATA TO frnu=2197) CALCULATE ESTIMATED GFR. [id number] 14:36:00 Test Item Value Reference Range Comments ACTIVATED CLOTTING TIME 219 sec Reference Range: 74-137 (BEAKER) (test zigm=233) seconds, Baseline/TESTED AT [place] [address] [id number] 13:50:00 Test Item Value Reference Range Comments ACTIVATED CLOTTING TIME 257 sec Reference Range: 74-137 (BEAKER) (test druj=611) seconds, Baseline/TESTED AT [place] [address] RAD, ABDOMEN/KUB, 1 VIEW [id number] 10:18:00Reason for exam:->ileusShould this be performed at the bedside?->YesFINAL REPORT CLINICAL HISTORY: ileus TECHNIQUE: Supine abdomen COMPARISON: 06/28/2019 IMPRESSION: The bowel gas pattern is nonspecific. Free air and air-fluid levels are not seen but cannot be definitively excluded on the supine view. Vascular stents are again seen in the left upper abdomen and midline lower abdomen. Signed: Antolin Jarrell [facility] Verified Date/Time: 06/29/201910:18:28 Reading Location: [facility] Radiology Reading Room RAD, CHEST, 1 VIEW, NON [id number] 09:28:00Reason for exam:->sobShould this be performed at the bedside?-> YesFINAL REPORT CLINICAL HISTORY: sob TECHNIQUE: 1 view of the chest. COMPARISON: 06/28/2019 IMPRESSION: The left jugular line is unchanged. Minimal bibasilar atelectasis is unchanged. The cardiomediastinal silhouette is magnified by technique. Signed: Antolin Jarrell MDReport Verified Date/Time: 06/29/2019 09:28:17 Reading Location: [facility] Radiology Reading Room CBC W/PLT COUNT & AUTO [id number] 08:40:00 Test Item Value Reference Range Comments WHITE BLOOD CELL COUNT (BEAKER) 11.1 K/ L 3.5-10.5 (test tkif=187) RED BLOOD CELL COUNT (BEAKER) 4.37 M/ L 3.93-5.22 (test fuce=581) HEMOGLOBIN (BEAKER) (test 13.0 GM/DL 11.2-15.7 lvlb=861) HEMATOCRIT (BEAKER) (test 39.6 % 34.1-44.9 wofw=736) MEAN CORPUSCULAR VOLUME 90.6 fL 79.4-94.8 (BEAKER) (test gbah=540) MEAN CORPUSCULAR HEMOGLOBIN 29.7 pg 25.6-32.2 (BEAKER) (test gogo=947) MEAN CORPUSCULAR HEMOGLOBIN 32.8 GM/DL 32.2-35.5 CONC (BEAKER) (test wmvm=033) RED CELL DISTRIBUTION WIDTH 14.7 % 11.7-14.4 (BEAKER) (test ngjm=812) PLATELET COUNT (BEAKER) (test 120 K/CU MM 150-450 amzh=866) MEAN PLATELET VOLUME (BEAKER) 11.0 fL 9.4-12.3 MPV-Approximately 20% (test lpzz=058) positive bias due to method change. NUCLEATED RED BLOOD CELLS 0 /100 WBC 0-0 (BEAKER) (test imal=101) (CELLAVISION MANUAL DIFF)2019-06-29 08:40:00 Test Item Value Reference Range Comments NEUTROPHILS - REL (CELLAVISION)(BEAKER) (test 79 % icef=2868) LYMPHOCYTES - REL (CELLAVISION)(BEAKER) (test 7 % orll=9595) MONOCYTES - REL (CELLAVISION)(BEAKER) (test 6 % etpe=3892) BANDS - REL (CELLAVISION)(BEAKER) (test chtr=9853) 8 % 0-10 NEUTROPHILS - ABS (CELLAVISION)(BEAKER) (test 8.77 K/ul 1.56-6.13 bdjz=7251) LYMPHOCYTES - ABS (CELLAVISION)(BEAKER) (test 0.78 K/ul 1.18-3.74 agxg=8600) MONOCYTES - ABS (CELLAVISION)(BEAKER) (test 0.67 K/uL 0.24-0.36 oumq=1982) BANDS - ABS (CELLAVISION)(BEAKER) (test frec=3214) 0.89 K/uL 0.00-0.80 TOTAL COUNTED (BEAKER) (test mlgp=7319) 100 RBC MORPHOLOGY (BEAKER) (test wirf=370) Normal WBC MORPHOLOGY (BEAKER) (test rowy=304) Normal PLT MORPHOLOGY (BEAKER) (test lhhu=144) Normal ARTIFACT (CELLAVISION)(BEAKER) (test knsz=1206) Present PLATELET CONCENTRATION (CELLAVISION)(BEAKER) (test Decreased xpso=0934) Received comment: User comments: Slide comments:BLOOD GAS, [id number] 04 :40:00 Test Item Value Reference Range Comments PH ARTERIAL (BEAKER) (test kiti=753) 7.45 7.35-7.45 PCO2 ARTERIAL (BEAKER) (test vdan=075) 34 mmHg 35-45 PO2 ARTERIAL (BEAKER) (test qlrh=541) 74 mmHg 80-90 O2 SATURATION ARTERIAL (BEAKER) (test pbdt=441) 95.5 % 96.0-97.0 HCO3 ARTERIAL (BEAKER) (test mvmc=573) 23 mmol/L 21-29 BASE EXCESS ARTERIAL (BEAKER) (test ernn=909) -0.6 mmol/L -2.0-3.0 PATIENT TEMPERATURE (BEAKER) (test hbjx=6417) 37.0 C FIO2 (BEAKER) (test xjti=4548) 44.0 % COMPREHENSIVE METABOLIC [id number] 04:37:00 Test Item Value Reference Range Comments TOTAL PROTEIN (BEAKER) (test 6.2 gm/dL 6.0-8.3 vurr=724) ALBUMIN (BEAKER) (test 3.0 g/dL 3.5-5.0 ekas=7736) ALKALINE PHOSPHATASE (BEAKER) 57 U/L 40-150 (test brry=372) BILIRUBIN TOTAL (BEAKER) 0.6 mg/dL 0.2-1.2 (test tvhj=311) SODIUM (BEAKER) (test 134 meq/L 136-145 dtjm=616) POTASSIUM (BEAKER) (test 3.7 meq/L 3.5-5.1 uydk=674) CHLORIDE (BEAKER) (test 98 meq/L 98-107 nhwe=662) CO2 (BEAKER) (test jpwe=169) 25 meq/L 22-29 BLOOD UREA NITROGEN (BEAKER) 65 mg/dL 7-21 (test nijv=226) CREATININE (BEAKER) (test 2.99 mg/dL 0.57-1.25 jubb=013) GLUCOSE RANDOM (BEAKER) (test 157 mg/dL 70-105 riar=187) CALCIUM (BEAKER) (test 8.6 mg/dL 8.4-10.2 ofac=527) AST (SGOT) (BEAKER) (test 20 U/L 5-34 nueo=554) ALT (SGPT) (BEAKER) (test 13 U/L 6-55 muas=209) EGFR (BEAKER) (test INSUFFICIENT CLINICAL DATA TO eewo=0136) CALCULATE ESTIMATED GFR. B-TYPE NATRIURETIC FACTOR (BNP)2019-06-29 04:34:00 Test Item Value Reference Range Comments B-TYPE NATRIURETIC PEPTIDE (BEAKER) (test 848 pg/mL 0-100 aaay=182) [id number] 04:33:00 Test Item Value Reference Range Comments PHOSPHORUS (BEAKER) (test yswb=438) 5.2 mg/dL 2.3-4.7 [id number] 04:33:00 Test Item Value Reference Range Comments MAGNESIUM (BEAKER) (test xsci=225) 1.8 mg/dL 1.6-2.6 CALCIUM, [id number] 04:22:00 Test Item Value Reference Range Comments CALCIUM IONIZED (BEAKER) (test pmcb=343) 1.09 mmol/L 1.12-1.27 PH, BLOOD (BEAKER) (test saua=7776) 7.39 BASIC METABOLIC [id number] 22:10:00 Test Item Value Reference Range Comments SODIUM (BEAKER) (test 136 meq/L 136-145 jvnn=120) POTASSIUM (BEAKER) (test 3.4 meq/L 3.5-5.1 Specimen slightly hemolyzed qork=249) CHLORIDE (BEAKER) (test 99 meq/L 98-107 balp=321) CO2 (BEAKER) (test hfgh=123) 24 meq/L 22-29 BLOOD UREA NITROGEN (BEAKER) 62 mg/dL 7-21 (test nciw=198) CREATININE (BEAKER) (test 3.07 mg/dL 0.57-1.25 Specimen slightly hemolyzed dqpm=763) GLUCOSE RANDOM (BEAKER) 206 mg/dL 70-105 (test jzsm=764) CALCIUM (BEAKER) (test 8.7 mg/dL 8.4-10.2 ahuo=807) EGFR (BEAKER) (test INSUFFICIENT CLINICAL DATA TO hmvh=7741) CALCULATE ESTIMATED GFR. POCT-GLUCOSE [id number] 18:08:00 Test Item Value Reference Range Comments POC-GLUCOSE METER (BEAKER) 180 mg/dL 70-110 TESTED AT [address] (test hudl=2690) [facility] [address] BLOOD GAS, [id number] 16:21:00 Test Item Value Reference Range Comments PH VENOUS (BEAKER) (test mkwh=434) 7.33 7.32-7.42 PCO2 VENOUS (BEAKER) (test zvll=629) 49 mmHg 41-51 PO2 VENOUS (BEAKER) (test nrjd=497) 50 mmHg 25-40 O2 SATURATION VENOUS (BEAKER) (test zufh=768) 83.0 % 40.0-70.0 HCO3 VENOUS (BEAKER) (test pooz=553) 25 mmol/L 21-29 BASE EXCESS VENOUS (BEAKER) (test qisv=714) -1.1 mmol/L -2.0-3.0 PATIENT TEMPERATURE (BEAKER) (test kxzf=4750) 37.0 C RAD, CHEST, 1 VIEW, NON [id number] 14:41:00Reason for exam:->eval central lineShould this be [...] MDReport Verified Date/Time: 06/28/2019 14:41:37 Reading Location: [facility] Mammo Reading Room RESPIRATORY PANEL [id number] 14:06:00 Test Item Value Reference Range Comments HUMAN METAPNEUMOVIRUS Not detected Not detected, (BEAKER) (test nhyj=6904) Equivocal RHINOVIRUS (BEAKER) (test Not detected Not detected, ujqu=9899) Equivocal INFLUENZA A (BEAKER) (test Not detected Not detected, hwaj=6640) Equivocal INFLUENZA A (NO SUBTYPE) (test xlfu=7772) INFLUENZA A SUBTYPE H1 (BEAKER) (test fhzk=8113) INFLUENZA A SUBTYPE H3 (BEAKER) (test ezod=1180) INFLUENZA A SUBTYPE H1-2009 (BEAKER) (test zulm=6720) INFLUENZA B (BEAKER) (test Not detected Not detected, gtrb=5024) Equivocal RESPIRATORY SYNCYTIAL Not detected Not detected, VIRUS (BEAKER) (test Equivocal oizt=2488) PARAINFLUENZA VIRUS 1 Detected Not detected, Contact isolation if (BEAKER) (test vdgq=0889) Equivocal immunosuppressed or young children. Consider stopping antibiotics. PARAINFLUENZA VIRUS 2 Not detected Not detected, (BEAKER) (test xrba=9741) Equivocal PARAINFLUENZA VIRUS 3 Not detected Not detected, (BEAKER) (test cjff=9994) Equivocal PARAINFLUENZA VIRUS 4 Not detected Not detected, (BEAKER) (test mfbc=0188) Equivocal ADENOVIRUS (BEAKER) (test Not detected Not detected, btmm=5147) Equivocal CORONAVIRUS 229E (BEAKER) Not detected Not detected, (test eyvo=7783) Equivocal CORONAVIRUS HKU1 (BEAKER) Not detected Not detected, (test puow=4468) Equivocal CORONAVIRUS NL63 (BEAKER) Not detected Not detected, (test xdqd=4470) Equivocal CORONAVIRUS OC43 (BEAKER) Not detected Not detected, (test jjlr=5711) Equivocal BORDETELLA PERTUSSIS Not detected Not detected, (BEAKER) (test omyn=4558) Equivocal CHLAMYDOPHILA PNEUMONIAE Not detected Not detected, (BEAKER) (test simf=8177) Equivocal MYCOPLASMA PNEUMONIAE Not detected Not detected, (BEAKER) (test npnq=0365) Equivocal Other viruses and bacteria not targeted by this PCR panel cannot be excluded; therefore clinical correlation and follow up of serology, culture results, and other molecular studies is required. The results are not intended to be used as the sole means for clinical diagnosis or patient management decisions. This sample was tested at the [facility] using the CEINTArray Respiratory Panel. It is FDA cleared and has been verified and approved by the [facility] for clinical use on nasopharyngeal swab specimens.The performance of the FilmArrayRP has not been established in individuals who received influenza vaccine. Recent administration ofa nasal influenza vaccine may cause false positive results for Influenza A and/orInfluenza B.CBC W/PLT COUNT & AUTO [id number] 13:11:00 Test Item Value Reference Range Comments WHITE BLOOD CELL COUNT (BEAKER) (test lsnl=110) 11.7 K/ L 3.5-10.5 RED BLOOD CELL COUNT (BEAKER) (test uvlw=526) 4.84 M/ L 3.93-5.22 HEMOGLOBIN (BEAKER) (test lzzq=749) 14.5 GM/DL 11.2-15.7 HEMATOCRIT (BEAKER) (test gmln=286) 43.9 % 34.1-44.9 MEAN CORPUSCULAR VOLUME (BEAKER) (test tpqp=878) 90.7 fL 79.4-94.8 MEAN CORPUSCULAR HEMOGLOBIN (BEAKER) (test 30.0 pg 25.6-32.2 otbo=273) MEAN CORPUSCULAR HEMOGLOBIN CONC (BEAKER) (test 33.0 GM/DL 32.2-35.5 wuub=390) RED CELL DISTRIBUTION WIDTH (BEAKER) (test 15.1 % 11.7-14.4 lsvn=185) PLATELET COUNT (BEAKER) (test cebn=218) 167 K/CU MM 150-450 MEAN PLATELET VOLUME (BEAKER) (test diro=063) 11.0 fL 9.4-12.3 NUCLEATED RED BLOOD CELLS (BEAKER) (test 0 /100 WBC 0-0 xvsk=549) (CELLAVISION MANUAL DIFF)2019-06-28 13:11:00 Test Item Value Reference Range Comments NEUTROPHILS - REL (CELLAVISION)(BEAKER) (test 56 % fldj=2478) LYMPHOCYTES - REL (CELLAVISION)(BEAKER) (test 4 % lvlp=7105) MONOCYTES - REL (CELLAVISION)(BEAKER) (test 2 % aeyc=1644) BANDS - REL (CELLAVISION)(BEAKER) (test 37 % 0-10 jqyb=5038) ATYPICAL LYMPHOCYTES - REL (CELLAVISION)(BEAKER) 1 % 0-0 (test dbmx=1189) NEUTROPHILS - ABS (CELLAVISION)(BEAKER) (test 6.55 K/ul 1.56-6.13 hwlj=9301) LYMPHOCYTES - ABS (CELLAVISION)(BEAKER) (test 0.47 K/ul 1.18-3.74 wgfm=7263) MONOCYTES - ABS (CELLAVISION)(BEAKER) (test 0.23 K/uL 0.24-0.36 lpop=2239) BANDS - ABS (CELLAVISION)(BEAKER) (test 4.33 K/uL 0.00-0.80 ofxo=9004) ATYPICAL LYMPHOCYTES - ABS (CELLAVISION)(BEAKER) 0.12 K/uL 0.00-0.00 (test szbg=8840) TOTAL COUNTED (BEAKER) (test kbtn=5945) 100 PLT MORPHOLOGY (BEAKER) (test tuli=572) Normal SMUDGE CELLS (BEAKER) (test vpin=6586) Present ANISOCYTOSIS (BEAKER) (test fcrr=861) 1+ few POIKILOCYTES (BEAKER) (test okog=517) 3+ many SCHISTOCYTES (BEAKER) (test mldq=790) 1+ few JOSSY CELLS (BEAKER) (test fcht=219) 2+ moderate PLATELET CONCENTRATION (CELLAVISION)(BEAKER) Adequate (test dqit=8423) Received comment: User comments: Slide comments:POCT-GLUCOSE [id number] 12: 54:00 Test Item Value Reference Range Comments POC-GLUCOSE METER (BEAKER) 186 mg/dL 70-[address] [facility] [address] (test cxgp=3011) [facility] [address] BASIC METABOLIC [id number] 12:30:00 Test Item Value Reference Range Comments SODIUM (BEAKER) (test 133 meq/L 136-145 fxou=847) POTASSIUM (BEAKER) (test 3.8 meq/L 3.5-5.1 Specimen moderately hemolyzed gtsr=641) CHLORIDE (BEAKER) (test 101 meq/L 98-107 jevm=024) CO2 (BEAKER) (test kdwm=587) 20 meq/L 22-29 BLOOD UREA NITROGEN (BEAKER) 55 mg/dL 7-21 (test umvc=740) CREATININE (BEAKER) (test 2.83 mg/dL 0.57-1.25 Specimen moderately hemolyzed efwj=772) GLUCOSE RANDOM (BEAKER) 193 mg/dL 70-105 (test pyfh=990) CALCIUM (BEAKER) (test 8.6 mg/dL 8.4-10.2 qtcd=289) EGFR (BEAKER) (test INSUFFICIENT CLINICAL DATA TO tnqy=4552) CALCULATE ESTIMATED GFR. RAD, CHEST, 1 VIEW, NON [id number] 12:19:00Reason for exam:->sobShould this be performed at the bedside?->YesFINAL REPORT CLINICAL HISTORY: sob TECHNIQUE: 1 view of the chest. COMPARISON: 06/27/2019 IMPRESSION: Bilateral lower lung bandlike opacities are unchanged. There is no significant pleural fluid. The cardiomediastinal silhouette is magnified by technique. Signed: Antolin Jarrell MDReport Verified Date/Time: 06/28/2019 12:19: 20 Reading Location: [facility] Reading Room B-TYPE NATRIURETIC FACTOR (BNP)2019-06-28 12:17:00 Test Item Value Reference Range Comments B-TYPE NATRIURETIC PEPTIDE (BEAKER) (test 1699 pg/mL 0-100 bldk=605) BLOOD GAS, [id number] 11:45:00 Test Item Value Reference Range Comments PH ARTERIAL (BEAKER) (test slau=223) 7.45 7.35-7.45 PCO2 ARTERIAL (BEAKER) (test qcfl=857) 33 mmHg 35-45 PO2 ARTERIAL (BEAKER) (test mtge=428) 66 mmHg 80-90 O2 SATURATION ARTERIAL (BEAKER) (test sqqh=512) 94.5 % 96.0-97.0 HCO3 ARTERIAL (BEAKER) (test hxsn=789) 22 mmol/L 21-29 BASE EXCESS ARTERIAL (BEAKER) (test ernr=856) -1.0 mmol/L -2.0-3.0 PATIENT TEMPERATURE (BEAKER) (test njge=0191) 36.4 C FIO2 (BEAKER) (test pdrx=8549) 30.0 % RAD, ABDOMEN/KUB, 1 VIEW [id number] 10:06:00Reason for exam:->abdominal distentionFINAL REPORT EXAM: AP [...] MDReport Verified Date/Time: 06/28/2019 10:06:41 Reading Location: [facility] Mammo Reading Room 10: 06AMBASIC METABOLIC [id number] 06:46:00 Test Item Value Reference Range Comments SODIUM (BEAKER) (test 134 meq/L 136-145 bcid=139) POTASSIUM (BEAKER) (test 3.9 meq/L 3.5-5.1 Specimen slightly hemolyzed qycg=558) CHLORIDE (BEAKER) (test 101 meq/L 98-107 huah=165) CO2 (BEAKER) (test ovet=210) 18 meq/L 22-29 BLOOD UREA NITROGEN (BEAKER) 53 mg/dL 7-21 (test klyl=872) CREATININE (BEAKER) (test 2.69 mg/dL 0.57-1.25 Specimen slightly hemolyzed tkpt=350) GLUCOSE RANDOM (BEAKER) 190 mg/dL 70-105 (test gqsn=331) CALCIUM (BEAKER) (test 8.6 mg/dL 8.4-10.2 kduz=349) EGFR (BEAKER) (test INSUFFICIENT CLINICAL DATA TO tqpf=2733) CALCULATE ESTIMATED GFR. [id number] 06:44:00 Test Item Value Reference Range Comments MAGNESIUM (BEAKER) (test 1.7 mg/dL 1.6-2.6 Specimen slightly hemolyzed ncjk=005) U/S, RENAL, [id number] 04:41:00Reason for exam:->AKIFINAL REPORT U/S, RENAL, COMPLETEUltrasound [...] MCMANUS MD on 06/28/2019 04:41 AMBASIC METABOLIC [id number] 22:01:00 Test Item Value Reference Range Comments SODIUM (BEAKER) (test 131 meq/L 136-145 wbzn=507) POTASSIUM (BEAKER) (test 4.1 meq/L 3.5-5.1 Specimen moderately hemolyzed rwls=081) CHLORIDE (BEAKER) (test 102 meq/L 98-107 hudf=166) CO2 (BEAKER) (test hjzw=312) 15 meq/L 22-29 BLOOD UREA NITROGEN (BEAKER) 46 mg/dL 7-21 (test iket=479) CREATININE (BEAKER) (test 2.40 mg/dL 0.57-1.25 Specimen moderately hemolyzed zydg=468) GLUCOSE RANDOM (BEAKER) 279 mg/dL 70-105 (test eikq=910) CALCIUM (BEAKER) (test 7.6 mg/dL 8.4-10.2 jojh=517) EGFR (BEAKER) (test INSUFFICIENT CLINICAL DATA TO jlbc=2131) CALCULATE ESTIMATED GFR. OSMOLALITY, [id number] 21:57:00 Test Item Value Reference Range Comments OSMOLALITY URINE (BEAKER) (test qzud=511) 309 mOsm/kg 40-1,400 PROTEIN, RANDOM [id number] 21:57:00 Test Item Value Reference Range Comments PROTEIN, URINE (BEAKER) (test aiep=9627) < mg/dL 0-14 CREATININE, RANDOM [id number] 21:52:00 Test Item Value Reference Range Comments CREATININE URINE (BEAKER) (test whhc=932) 14.2 mg/dL Reference Range: No NormalsSODIUM, RANDOM [id number] 21:52:00 Test Item Value Reference Range Comments SODIUM URINE (BEAKER) (test bmzc=370) 105 meq/L Reference Range: No NormalsURINALYSIS W/ [id number] 21:47:00 Test Item Value Reference Range Comments COLOR (BEAKER) (test qqxj=470) Light Yellow CLARITY (BEAKER) (test gnhx=110) Clear SPECIFIC GRAVITY UA (BEAKER) (test gcms=453) 1.006 1.001-1.035 PH UA (BEAKER) (test jodt=032) 5.0 5.0-8.0 PROTEIN UA (BEAKER) (test brea=821) Negative Negative GLUCOSE UA (BEAKER) (test lfvi=141) Negative Negative KETONES UA (BEAKER) (test dnsd=148) Negative Negative BILIRUBIN UA (BEAKER) (test lffv=023) Negative Negative BLOOD UA (BEAKER) (test ivad=746) Negative Negative NITRITE UA (BEAKER) (test quty=969) Negative Negative LEUKOCYTE ESTERASE UA (BEAKER) (test lhvp=808) Large Negative UROBILINOGEN UA (BEAKER) (test gdpr=699) 0.2 mg/dL 0.2-1.0 RBC UA (BEAKER) (test aqmg=597) 1 /HPF WBC UA (BEAKER) (test zgwj=198) 9 /HPF BACTERIA (BEAKER) (test xxgl=276) Occasional HYALINE CASTS (BEAKER) (test iydh=048) 2 /LPF GRANULAR CASTS (BEAKER) (test jfpu=502) 5 /LPF YEAST (BEAKER) (test xfrc=2496) Occasional SOURCE(BEAKER) (test qwna=2118) POCT-GLUCOSE [id number] 18:42:00 Test Item Value Reference Range Comments POC-GLUCOSE METER (BEAKER) 203 mg/dL 70-[address] [facility] [address] [facility] (test qfnb=5805) [facility] [address] B-TYPE NATRIURETIC FACTOR (BNP)2019-06-27 18:16:00 Test Item Value Reference Range Comments B-TYPE NATRIURETIC PEPTIDE (BEAKER) (test 2545 pg/mL 0-100 eqvi=669) BASIC METABOLIC [id number] 18:12:00 Test Item Value Reference Range Comments SODIUM (BEAKER) (test 135 meq/L 136-145 cipu=168) POTASSIUM (BEAKER) (test 4.7 meq/L 3.5-5.1 Specimen slightly hemolyzed zcwu=269) CHLORIDE (BEAKER) (test 105 meq/L 98-107 pkro=421) CO2 (BEAKER) (test wnog=672) 18 meq/L 22-29 BLOOD UREA NITROGEN (BEAKER) 46 mg/dL 7-21 (test xjip=923) CREATININE (BEAKER) (test 2.43 mg/dL 0.57-1.25 Specimen slightly hemolyzed pqpo=961) GLUCOSE RANDOM (BEAKER) 197 mg/dL 70-105 (test ktpn=606) CALCIUM (BEAKER) (test 8.5 mg/dL 8.4-10.2 rslj=893) EGFR (BEAKER) (test INSUFFICIENT CLINICAL DATA TO oiok=7810) CALCULATE ESTIMATED GFR. LACTIC ACID, [id number] 18:06:00 Test Item Value Reference Range Comments LACTATE BLOOD ARTERIAL (2) 1.6 mmol/L 0.5-2.2 Specimen slightly hemolyzed (BEAKER) (test clcu=8570) BLOOD GAS, [id number] 15:46:00 Test Item Value Reference Range Comments PH ARTERIAL (BEAKER) (test qeda=476) 7.35 7.35-7.45 PCO2 ARTERIAL (BEAKER) (test fygo=232) 37 mmHg 35-45 PO2 ARTERIAL (BEAKER) (test fcsg=872) 83 mmHg 80-90 O2 SATURATION ARTERIAL (BEAKER) (test euud=224) 95.8 % 96.0-97.0 HCO3 ARTERIAL (BEAKER) (test ghap=040) 20 mmol/L 21-29 BASE EXCESS ARTERIAL (BEAKER) (test qyeu=888) -5.1 mmol/L -2.0-3.0 PATIENT TEMPERATURE (BEAKER) (test qspc=7305) 37.0 C FIO2 (BEAKER) (test nfuv=7073) 50.0 % RAD, CHEST, 1 VIEW, NON [id number] 15:01:00Reason for exam:->sobShould this be performed at [...] MDReport Verified Date/Time: 06/27/2019 15:01:18 Reading Location: [facility] B1 C013X OrthoConsult Reading Room BLOOD GAS, [id number] 14:35:00 Test Item Value Reference Range Comments PH ARTERIAL (BEAKER) (test yzpo=271) 7.29 7.35-7.45 PCO2 ARTERIAL (BEAKER) (test ggqi=556) 46 mmHg 35-45 PO2 ARTERIAL (BEAKER) (test muti=028) 115 mmHg 80-90 O2 SATURATION ARTERIAL (BEAKER) (test szrl=002) 97.7 % 96.0-97.0 HCO3 ARTERIAL (BEAKER) (test jklg=366) 21 mmol/L 21-29 BASE EXCESS ARTERIAL (BEAKER) (test bocn=204) -5.5 mmol/L -2.0-3.0 PATIENT TEMPERATURE (BEAKER) (test uemv=6028) 36.8 C FIO2 (BEAKER) (test agov=6999) 100.0 % POCT-GLUCOSE [id number] 12:41:00 Test Item Value Reference Range Comments POC-GLUCOSE METER (BEAKER) 203 mg/dL 70-[address] [facility] [address] (test iusy=4333) [facility] [address] RAPID INFLUENZA A&B [id number] 10:04:00 Test Item Value Reference Range Comments RAPID INFLUENZA A AG (BEAKER) (test Negative Negative, Inconclusive ypob=8114) RAPID INFLUENZA B AG (BEAKER) (test Negative Negative, Inconclusive yjtw=1552) CBC W/PLT COUNT & AUTO [id number] 07:43:00 Test Item Value Reference Range Comments WHITE BLOOD CELL COUNT (BEAKER) (test dgkc=853) 16.7 K/ L 3.5-10.5 RED BLOOD CELL COUNT (BEAKER) (test ccuy=745) 4.81 M/ L 3.93-5.22 HEMOGLOBIN (BEAKER) (test txjv=451) 14.4 GM/DL 11.2-15.7 HEMATOCRIT (BEAKER) (test bucv=653) 45.5 % 34.1-44.9 MEAN CORPUSCULAR VOLUME (BEAKER) (test fzpq=684) 94.6 fL 79.4-94.8 MEAN CORPUSCULAR HEMOGLOBIN (BEAKER) (test 29.9 pg 25.6-32.2 ixgl=871) MEAN CORPUSCULAR HEMOGLOBIN CONC (BEAKER) (test 31.6 GM/DL 32.2-35.5 fmwx=498) RED CELL DISTRIBUTION WIDTH (BEAKER) (test 15.0 % 11.7-14.4 lfbh=401) PLATELET COUNT (BEAKER) (test wnjw=481) 182 K/CU MM 150-450 MEAN PLATELET VOLUME (BEAKER) (test woid=226) 9.6 fL 9.4-12.3 NUCLEATED RED BLOOD CELLS (BEAKER) (test 0 /100 WBC 0-0 wcyb=221) (CELLAVISION MANUAL DIFF)2019-06-27 07:43:00 Test Item Value Reference Range Comments NEUTROPHILS - REL (CELLAVISION)(BEAKER) (test 82 % ugcf=1454) LYMPHOCYTES - REL (CELLAVISION)(BEAKER) (test 5 % hanl=7947) MONOCYTES - REL (CELLAVISION)(BEAKER) (test 3 % phot=8887) BANDS - REL (CELLAVISION)(BEAKER) (test 10 % 0-10 oyay=2329) NEUTROPHILS - ABS (CELLAVISION)(BEAKER) (test 13.69 K/ul 1.56-6.13 tqno=2914) LYMPHOCYTES - ABS (CELLAVISION)(BEAKER) (test 0.84 K/ul 1.18-3.74 etjt=4133) MONOCYTES - ABS (CELLAVISION)(BEAKER) (test 0.50 K/uL 0.24-0.36 jgik=1055) BANDS - ABS (CELLAVISION)(BEAKER) (test 1.67 K/uL 0.00-0.80 ejmj=5055) TOTAL COUNTED (BEAKER) (test kmjs=2999) 100 RBC MORPHOLOGY (BEAKER) (test ocqm=335) Normal WBC MORPHOLOGY (BEAKER) (test fxlm=635) Normal PLT MORPHOLOGY (BEAKER) (test ooyl=020) Normal ARTIFACT (CELLAVISION)(BEAKER) (test xmgv=2568) Present PLATELET CONCENTRATION (CELLAVISION)(BEAKER) Adequate (test nkjg=2344) Received comment: User comments: Slide comments:POCT-GLUCOSE [id number] 06: 24:00 Test Item Value Reference Range Comments POC-GLUCOSE METER (BEAKER) 161 mg/dL 70-[address] [facility] [address] [address] (test wuer=5276) [facility] [address] TROPONIN [id number] 05:49:00 Test Item Value Reference Range Comments TROPONIN I (BEAKER) (test rrnj=377) 68.65 ng/mL 0.00-0.03 Troponin I (TnI) levels [...] acute neurological disease, and persistent tachyarrhythmia.BASIC METABOLIC [id number] 04:54:00 Test Item Value Reference Range Comments SODIUM (BEAKER) (test 136 meq/L 136-145 psfx=966) POTASSIUM (BEAKER) (test 4.1 meq/L 3.5-5.1 Specimen slightly hemolyzed ltuw=752) CHLORIDE (BEAKER) (test 105 meq/L 98-107 zlev=009) CO2 (BEAKER) (test qiwk=758) 21 meq/L 22-29 BLOOD UREA NITROGEN (BEAKER) 42 mg/dL 7-21 (test uoai=649) CREATININE (BEAKER) (test 2.44 mg/dL 0.57-1.25 Specimen slightly hemolyzed elhl=409) GLUCOSE RANDOM (BEAKER) 165 mg/dL 70-105 (test dywy=818) CALCIUM (BEAKER) (test 8.1 mg/dL 8.4-10.2 ncba=490) EGFR (BEAKER) (test INSUFFICIENT CLINICAL DATA TO siaj=7410) CALCULATE ESTIMATED GFR. [id number] 04:52:00 Test Item Value Reference Range Comments MAGNESIUM (BEAKER) (test 1.9 mg/dL 1.6-2.6 Specimen slightly hemolyzed naqg=187) POCT-GLUCOSE [id number] 00:41:00 Test Item Value Reference Range Comments POC-GLUCOSE METER (BEAKER) 144 mg/dL 70-110 TESTED AT [address] (test ckca=7105) [facility] [address] CBC (HEMOGRAM ONLY)2019-06-26 23:34:00 Test Item Value Reference Range Comments WHITE BLOOD CELL COUNT (BEAKER) (test hfby=844) 15.9 K/ L 3.5-10.5 RED BLOOD CELL COUNT (BEAKER) (test jzuq=061) 4.21 M/ L 3.93-5.22 HEMOGLOBIN (BEAKER) (test kprp=587) 12.8 GM/DL 11.2-15.7 HEMATOCRIT (BEAKER) (test ztph=822) 40.1 % 34.1-44.9 MEAN CORPUSCULAR VOLUME (BEAKER) (test ncrb=774) 95.2 fL 79.4-94.8 MEAN CORPUSCULAR HEMOGLOBIN (BEAKER) (test 30.4 pg 25.6-32.2 kelo=427) MEAN CORPUSCULAR HEMOGLOBIN CONC (BEAKER) (test 31.9 GM/DL 32.2-35.5 jmdb=360) RED CELL DISTRIBUTION WIDTH (BEAKER) (test 15.1 % 11.7-14.4 mfuj=962) PLATELET COUNT (BEAKER) (test zmgh=945) 186 K/CU MM 150-450 MEAN PLATELET VOLUME (BEAKER) (test hnxc=390) 9.4 fL 9.4-12.3 NUCLEATED RED BLOOD CELLS (BEAKER) (test 0 /100 WBC 0-0 qlax=627) POCT-GLUCOSE [id number] 18:37:00 Test Item Value Reference Range Comments POC-GLUCOSE METER (BEAKER) 134 mg/dL 70-110 TESTED AT [address] (test ieqp=5998) [facility] [address] RAD, CHEST, 1 VIEW, NON [id number] 13:19:00Reason for exam:->respiratory failure/COPD intubatedFINAL REPORT History: [...] MDReport Verified Date/Time: 06/26/2019 13:19:00 Reading Location: [address] Consult Reading Room CBC W/PLT COUNT & AUTO [id number] 11:40:00 Test Item Value Reference Range Comments WHITE BLOOD CELL COUNT (BEAKER) (test paqa=016) 17.0 K/ L 3.5-10.5 RED BLOOD CELL COUNT (BEAKER) (test lxei=045) 4.44 M/ L 3.93-5.22 HEMOGLOBIN (BEAKER) (test sodn=110) 13.4 GM/DL 11.2-15.7 HEMATOCRIT (BEAKER) (test mulm=683) 42.0 % 34.1-44.9 MEAN CORPUSCULAR VOLUME (BEAKER) (test tsso=395) 94.6 fL 79.4-94.8 MEAN CORPUSCULAR HEMOGLOBIN (BEAKER) (test 30.2 pg 25.6-32.2 svtk=724) MEAN CORPUSCULAR HEMOGLOBIN CONC (BEAKER) (test 31.9 GM/DL 32.2-35.5 wpke=288) RED CELL DISTRIBUTION WIDTH (BEAKER) (test 15.0 % 11.7-14.4 uggj=582) PLATELET COUNT (BEAKER) (test ofkl=108) 209 K/CU MM 150-450 MEAN PLATELET VOLUME (BEAKER) (test tfdb=916) 9.7 fL 9.4-12.3 NUCLEATED RED BLOOD CELLS (BEAKER) (test 0 /100 WBC 0-0 lecl=882) NEUTROPHILS RELATIVE PERCENT (BEAKER) (test 92 % wyja=316) LYMPHOCYTES RELATIVE PERCENT (BEAKER) (test 3 % fojt=320) MONOCYTES RELATIVE PERCENT (BEAKER) (test 4 % uwxk=745) EOSINOPHILS RELATIVE PERCENT (BEAKER) (test 0 % rdmb=189) BASOPHILS RELATIVE PERCENT (BEAKER) (test 0 % fjdq=059) NEUTROPHILS ABSOLUTE COUNT (BEAKER) (test 15.68 K/ L 1.56-6.13 twrz=300) LYMPHOCYTES ABSOLUTE COUNT (BEAKER) (test 0.52 K/ L 1.18-3.74 tful=971) MONOCYTES ABSOLUTE COUNT (BEAKER) (test 0.71 K/ L 0.24-0.36 qito=820) EOSINOPHILS ABSOLUTE COUNT (BEAKER) (test 0.00 K/ L 0.04-0.36 nfjb=775) BASOPHILS ABSOLUTE COUNT (BEAKER) (test 0.03 K/ L 0.01-0.08 fdwh=419) IMMATURE GRANULOCYTES-RELATIVE PERCENT (BEAKER) 1 % 0-1 (test kujt=8781) POCT-GLUCOSE [id number] 11:29:00 Test Item Value Reference Range Comments POC-GLUCOSE METER (BEAKER) 241 mg/dL 70-[address] [facility] [address] (test vrqw=7337) [place] [address] CBC W/PLT COUNT & AUTO [id number] 10:15:00 Test Item Value Reference Range Comments WHITE BLOOD CELL COUNT (BEAKER) (test qwiv=815) 17.5 K/ L 3.5-10.5 RED BLOOD CELL COUNT (BEAKER) (test eagd=267) 4.52 M/ L 3.93-5.22 HEMOGLOBIN (BEAKER) (test pofh=806) 13.7 GM/DL 11.2-15.7 HEMATOCRIT (BEAKER) (test ngym=123) 44.1 % 34.1-44.9 MEAN CORPUSCULAR VOLUME (BEAKER) (test mruj=000) 97.6 fL 79.4-94.8 MEAN CORPUSCULAR HEMOGLOBIN (BEAKER) (test 30.3 pg 25.6-32.2 vjpi=632) MEAN CORPUSCULAR HEMOGLOBIN CONC (BEAKER) (test 31.1 GM/DL 32.2-35.5 adzu=761) RED CELL DISTRIBUTION WIDTH (BEAKER) (test 14.9 % 11.7-14.4 fbyc=999) PLATELET COUNT (BEAKER) (test tjgp=127) 219 K/CU MM 150-450 MEAN PLATELET VOLUME (BEAKER) (test vcdj=317) 9.6 fL 9.4-12.3 NUCLEATED RED BLOOD CELLS (BEAKER) (test 0 /100 WBC 0-0 vukx=195) (CELLAVISION MANUAL DIFF)2019-06-26 10:15:00 Test Item Value Reference Range Comments NEUTROPHILS - REL (CELLAVISION)(BEAKER) (test 86 % xxrf=8027) LYMPHOCYTES - REL (CELLAVISION)(BEAKER) (test 2 % ppzz=6338) MONOCYTES - REL (CELLAVISION)(BEAKER) (test 2 % ojye=0186) METAMYELOCYTES - REL (CELLAVISION)(BEAKER) (test 1 % 0-0 ivyy=0723) BANDS - REL (CELLAVISION)(BEAKER) (test 9 % 0-10 szcf=0135) NEUTROPHILS - ABS (CELLAVISION)(BEAKER) (test 15.05 K/ul 1.56-6.13 tqhp=7728) LYMPHOCYTES - ABS (CELLAVISION)(BEAKER) (test 0.35 K/ul 1.18-3.74 sube=3733) MONOCYTES - ABS (CELLAVISION)(BEAKER) (test 0.35 K/uL 0.24-0.36 iwyq=3532) METAMYELOCYTES - ABS (CELLAVISION)(BEAKER) (test 0.18 K/uL 0.00-0.00 ziao=4676) BANDS - ABS (CELLAVISION)(BEAKER) (test 1.58 K/uL 0.00-0.80 dhbq=9779) TOTAL COUNTED (BEAKER) (test lwai=5831) 100 WBC MORPHOLOGY (BEAKER) (test gwev=259) Normal PLT MORPHOLOGY (BEAKER) (test khcj=174) Normal HYPOCHROMIA (BEAKER) (test yech=781) 1+ few ANISOCYTOSIS (BEAKER) (test wnpm=246) 1+ few MACROCYTES (BEAKER) (test cvdj=116) 1+ few POIKILOCYTES (BEAKER) (test uzkj=962) 1+ few JOSSY CELLS (BEAKER) (test rmzv=453) 1+ few ARTIFACT (CELLAVISION)(BEAKER) (test ekrx=5374) Present PLATELET CONCENTRATION (CELLAVISION)(BEAKER) Adequate (test ajcq=7084) Received comment: User comments: Slide comments:HEMOGLOBIN [id number] 08:52: 00 Test Item Value Reference Range Comments HEMOGLOBIN A1C (BEAKER) (test kaio=039) 6.9 % 4.3-6.1 RAD, ABDOMEN/KUB, 1 VIEW [id number] 08:28:00Reason for exam:->ileusShould this be performed at [...] MDReport Verified Date/Time: 06/26/2019 08:28:56 Reading Location: [facility] C013V Neuro Reading Room POCT-GLUCOSE [id number] 07:49:00 Test Item Value Reference Range Comments POC-GLUCOSE METER (BEAKER) 275 mg/dL 70-[address] [facility] [address] (test kzri=0358) [facility] [address] TROPONIN [id number] 06:57:00 Test Item Value Reference Range Comments TROPONIN I (BEAKER) (test htnx=905) 432.80 ng/mL 0.00-0.03 Troponin I (TnI) levels [...] acute neurological disease, and persistent tachyarrhythmia.BLOOD GAS, [id number] 06:30:00 Test Item Value Reference Range Comments PH ARTERIAL (BEAKER) (test nzpa=991) 7.31 7.35-7.45 PCO2 ARTERIAL (BEAKER) (test gyeo=631) 42 mmHg 35-45 PO2 ARTERIAL (BEAKER) (test mdyr=962) 90 mmHg 80-90 O2 SATURATION ARTERIAL (BEAKER) (test htik=655) 96.5 % 96.0-97.0 HCO3 ARTERIAL (BEAKER) (test thuu=485) 21 mmol/L 21-29 BASE EXCESS ARTERIAL (BEAKER) (test zpns=245) -5.5 mmol/L -2.0-3.0 PATIENT TEMPERATURE (BEAKER) (test emgd=4582) 36.4 C FIO2 (BEAKER) (test gyeb=8762) 60.0 % B-TYPE NATRIURETIC FACTOR (BNP)2019-06-26 06:22:00 Test Item Value Reference Range Comments B-TYPE NATRIURETIC PEPTIDE (BEAKER) (test 1525 pg/mL 0-100 fkos=002) [id number] 06:16:00 Test Item Value Reference Range Comments MAGNESIUM (BEAKER) (test rdny=266) 1.8 mg/dL 1.6-2.6 LIPID [id number] 06:16:00 Test Item Value Reference Range Comments TRIGLYCERIDES (BEAKER) (test vdyn=429) 61 mg/dL CHOLESTEROL (BEAKER) (test edcz=977) 179 mg/dL HDL CHOLESTEROL (BEAKER) (test qncw=250) 34 mg/dL LDL CHOLESTEROL CALCULATED (BEAKER) (test 133 mg/dL viqo=282) Triglyceride Reference Range: Low Risk <150 Borderline 150- 199 High Risk 200-499 Very High Risk >=500Cholesterol Reference Range: Low Risk <200 Borderline 200-239 High Risk > 240HDL Cholesterol Reference Range: Low Risk >=60 High Risk <40LDL Cholesterol Reference Range: Optimal <100 Near Optimal 100-129 Borderline 130-159 High 160-189 Very High >=190BASIC METABOLIC [id number] 06:16:00 Test Item Value Reference Range Comments SODIUM (BEAKER) (test 132 meq/L 136-145 ystd=178) POTASSIUM (BEAKER) (test 4.3 meq/L 3.5-5.1 mnrg=879) CHLORIDE (BEAKER) (test 103 meq/L 98-107 olxl=181) CO2 (BEAKER) (test qgxq=148) 20 meq/L 22-29 BLOOD UREA NITROGEN (BEAKER) 28 mg/dL 7-21 (test btxl=158) CREATININE (BEAKER) (test 2.17 mg/dL 0.57-1.25 wrnd=866) GLUCOSE RANDOM (BEAKER) 274 mg/dL 70-105 (test kkpk=228) CALCIUM (BEAKER) (test 7.6 mg/dL 8.4-10.2 ioih=908) EGFR (BEAKER) (test INSUFFICIENT CLINICAL DATA TO tajp=5704) CALCULATE ESTIMATED GFR. [id number] 04:05:00 Test Item Value Reference Range Comments ACTIVATED CLOTTING TIME 301 sec Reference Range: 74-137 (BEAKER) (test ytya=449) seconds, Baseline/TESTED AT [facility] [address] [facility] [address] [id number] 03:52:00 Test Item Value Reference Range Comments ACTIVATED CLOTTING TIME 290 sec Reference Range: 74-137 (BEAKER) (test jlfi=017) seconds, Baseline/TESTED AT [place] [address] [id number] 03:44:00 Test Item Value Reference Range Comments ACTIVATED CLOTTING TIME 246 sec Reference Range: 74-137 (BEAKER) (test hoqe=788) seconds, Baseline/TESTED AT [place] [address] [id number] 03:44:00 Test Item Value Reference Range Comments ACTIVATED CLOTTING TIME 202 sec Reference Range: 74-137 (BEAKER) (test rykc=016) seconds, Baseline/TESTED AT [place] [address]
[2019-10-01] MEDS ORDERED: SCOPOLAMINE HYDROBROMIDE PATCH TD SCH (17:00)
[2019-10-02 02:27] VITALS: BMI 23.7
[2019-10-02] MEDS: MORPHINE 2 MG/ML SYR IV PRN ×2 (11:51→21:14)
[2019-10-03] MEDS: MORPHINE 2 MG/ML SYR IV PRN ×2 (11:48→17:49)
[2019-10-04] MEDS ORDERED: SCOPOLAMINE HYDROBROMIDE PATCH TD SCH (09:00)
[2019-10-04] MEDS: LORazepam 2 MG/ML VIAL IV PRN ×2 (11:23→18:43)
[2019-10-04] MEDS: MORPHINE 2 MG/ML SYR IV PRN (17:58)
[2019-10-05] MEDS: MORPHINE 2 MG/ML SYR IV PRN ×2 (08:01→20:13)
[2019-10-05] MEDS: LORazepam 2 MG/ML VIAL IV PRN ×2 (09:12→21:08)
[2019-10-05 21:48] VITALS: O2SAT 92
[2019-10-06] MEDS: MORPHINE 2 MG/ML SYR IV PRN ×2 (08:12→12:10)
[2019-10-06 08:53] VITALS: BP 142/66; TEMP 98.1
[2019-10-06] MEDS: LORazepam 2 MG/ML VIAL IV PRN ×2 (09:07→13:14)
== END 2019-10-06 13:25 | disposition hospice, inpatient (51) | DRG 951 ==
LOC: 2ND 15:50
PROVIDERS: ADMIT Internal Medicine Hematology & Oncology; ATTEND Internal Medicine
DX: Z51.5 Encounter for palliative care (principal)
CPT/HCPCS: J2270; J2405